=== PATIENT | female | born 1940 | race African-American/Black ===

== ENCOUNTER 2016-04-25 05:33 | Inpatient (IN) | payer OTHER ==
--- NOTE | 2016-04-25 05:35 | PDOC ---
History of Present Illness - General History Source: Patient <Chad Eaton - Last Filed: 04/25/16 06:41> - General History Source: Patient Exam Limitations: No Limitations - History of Present Illness Initial Comments: 04/25/16 05:47 The patient is a 75 year old female with significant past medical history of hypertension, diabetes, asthma, and COPD who presents to the ED with 4 days of SOB. Patient states she developed SOB with associated chest tightness and productive cough. Initially she had productive cough with green sputum, but the sputum is now whitish and clear. She is currently steroid dependent and is on 60mg of prednisone. Patient denies any sick contacts or recent travels. The patient denies fever, chills, chest pain, and palpitations. The patient denies abdominal pain, nausea, vomiting, and diarrhea. Allergies: Iodinated Contrast Media, tetracycline Social History: Denies alcohol, tobacco, and drug use. Past Surgical History: Breast Biopsy, Tubal Ligation PCP: Dr. Yeni Dejesus Counseling Aide: Dr. Marquise Perea <Evonne Hernadez - Last Filed: 04/25/16 06:47> <Kevon Albarran - Last Filed: 04/25/16 07:54> - General Stated Complaint: SOB Time Seen by Provider: 04/25/16 05:35 Past History - Past Medical History Asthma: Yes COPD: Yes Diabetes: Yes HTN: Yes Suicide Attempt (Hx): No - Surgical History Abdominal Surgery: Yes - Immunization History Immunization Up to Date: Yes - Psycho/Social/Smoking Cessation Hx Anxiety: No Suicidal Ideation: No Smoking Status: No Smoking History: Never smoked Have you smoked in the past 12 months: No Number of Cigarettes Smoked Daily: 0 If you are a former smoker, when did you quit?: 1989 Hx Alcohol Use: No Drug/Substance Use Hx: No Substance Use Type: Alcohol Hx Substance Use Treatment: No <Chda Eaton - Last Filed: 04/25/16 06:41> <Evonne Hernadez - Last Filed: 04/25/16 06:47> <Kevon Albarran - Last Filed: 04/25/16 07:54> - Past Medical History Allergies/Adverse Reactions: Allergies Allergy/AdvReac Type Severity Reaction Status Date / Time Iodinated Contrast Media - Allergy Unknown Verified 04/25/16 05:51 Oral and [IV Dye, Iodine Containing Contrast ] tetracycline [Tetracycline] Allergy Unknown Verified 04/25/16 05:51 shellfish derived Allergy Verified 04/25/16 06:39 Home Medications: Ambulatory Orders Arformoterol Tartrate [Brovana] 15 mcg IH DAILY 01/02/15 Losartan Potassium 50 mg PO DAILY 01/02/15 Metformin HCl 500 mg PO TID PRN 01/02/15 Mometasone Furoate [Asmanex 220Mcg -] 1 inh IH DAILY 01/02/15 Tiotropium Fisher [Spiriva] 1 inh PO DAILY 01/02/15 Albuterol 0.083% Nebulizer Delmi [Ventolin 0.083% Nebulizer Soln -] 1 neb NEB Q4H PRN #1 box 10/12/15 Prednisone 40 mg PO ASDIR 04/25/16 Review of Systems - Review of Systems Able to Perform ROS?: Yes Comments:: 04/25/16 05:47 CONSTITUTIONAL: Absent: fever, chills, diaphoresis, generalized weakness, malaise, loss of appetite HEENT: Absent: rhinorrhea, nasal congestion, throat pain, throat swelling, difficulty swallowing, mouth swelling, ear pain, eye pain, visual Changes CARDIOVASCULAR: Absent: chest pain, syncope, palpitations, irregular heart rate, lightheadedness , peripheral edema RESPIRATORY: +productive cough, SOB, chest tightness Absent: dyspnea with exertion, orthopnea , wheezing, stridor, hemoptysis GASTROINTESTINAL: Absent: abdominal pain, abdominal distension, nausea, vomiting, diarrhea, constipation, melena, hematochezia GENITOURINARY: Absent: dysuria, frequency, urgency, hesitancy, hematuria, flank pain, genital pain MUSCULOSKELETAL: Absent: myalgia, arthralgia, joint swelling SKIN: Absent: rash, itching, pallor NEUROLOGIC: Absent: headache, focal weakness or paresthesias, dizziness, unsteady gait, seizure, mental status changes, bladder or bowel incontinence PSYCHIATRIC: Absent: anxiety, depression, suicidal or homicidal ideation, hallucinations. <Evonne Hernadez - Last Filed: 04/25/16 06:47> *Physical Exam - Physical Exam Comments: 04/25/16 05:47 GENERAL: Well developed, well nourished. Awake and alert. No acute distress. HEENT: Normocephalic, atraumatic. PERRLA, EOMI. No conjunctival pallor. Sclera are non- icteric. Moist mucous membranes. Oropharynx is clear. NECK: Supple. Full ROM. No JVD. Carotid pulses 2+ and symmetric, without bruits. No thyromegaly. No lymphadenopathy. CARDIOVASCULAR: Slight tachycardia. Regular rhythm. No murmurs, rubs, or gallops. Distal pulses are 2+ and symmetric. PULMONARY: Bilateral coarse breath sounds, mild conversational dyspnea, scattered wheezing throughout all lung sanchez. ABDOMINAL: Soft. Non-tender. Non-distended. No rebound or guarding. No organomegaly. Normoactive bowel sounds. MUSCULOSKELETAL Normal range of motion at all joints. No bony deformities or tenderness. No CVA tenderness. EXTREMITIES: No cyanosis. No clubbing. No edema. No calf tenderness. SKIN: Warm and dry. Normal capillary refill. No rashes. No jaundice. NEUROLOGICAL: Alert, awake, appropriate. Cranial nerves 2-12 intact. Moving all extremities. No focal neurological deficits. PSYCHIATRIC: Cooperative. Good eye contact. Appropriate mood and affect. <Evonne Hernadez - Last Filed: 04/25/16 06:47> - Vital Signs Last Vital Signs Temp Pulse Resp BP Pulse Ox 98.7 F 86 20 135/57 95 04/25/16 05:51 04/25/16 07:09 04/25/16 07:09 04/25/16 07:09 04/25/16 07:09 <Kevon Albarran - Last Filed: 04/25/16 07:54> Heart Score/ECG Review - ECG Impressions Comment:: 04/25/16 06:47 NSR @76bpm Possible left atrial enlargement Left ventricular hypertrophy ST elevation, probably due to early repolarization Abnormal ECG <Evonne Hernadez - Last Filed: 04/25/16 06:47> ED Treatment Course - LABORATORY CBC & Chemistry Diagram: 04/25/16 05:40 04/25/16 05:40 <Chad Eaton - Last Filed: 04/25/16 06:41> - LABORATORY CBC & Chemistry Diagram: 04/25/16 05:40 04/25/16 05:40 <Evonne Hernadez - Last Filed: 04/25/16 06:47> - LABORATORY CBC & Chemistry Diagram: 04/25/16 05:40 04/25/16 05:40 - ADDITIONAL ORDERS Additional order review: Laboratory Results 04/25/16 04/25/16 04/25/16 05:40 05:40 05:40 INR 0.88 Sodium 139 Potassium 4.2 Chloride 106 Carbon Dioxide 24 Anion Gap 9 BUN 34 H D Creatinine 0.9 D Creat Clearance w eGFR > 60 Random Glucose 125 H Lactic Acid 1.677 Calcium 8.9 Magnesium 1.8 Total Bilirubin 0.3 D AST 16 ALT 30 Alkaline Phosphatase 63 Creatine Kinase 67 Troponin I < 0.02 B-Natriuretic Peptide 54.23 Total Protein 6.6 Albumin 3.3 L 04/25/16 05:40 RBC 4.75 MCV 85.5 MCHC 31.2 L RDW 15.1 MPV 9.7 Neutrophils % 60.2 D Lymphocytes % 30.0 D Monocytes % 8.0 D Eosinophils % 1.4 D Basophils % 0.4 D - Medications Given in the ED: ED Medications Discontinued Medications Generic Name Dose Route Start Last Admin Trade Name Hiteshq PRN Reason Stop Dose Admin Albuterol/Ipratropium 1 amp 04/25/16 05:36 04/25/16 05:40 Duoneb - NEB 04/25/16 05:37 1 amp ONCE STA Administration Albuterol/Ipratropium 1 amp 04/25/16 05:37 04/25/16 05:40 Duoneb - NEB 04/25/16 05:38 1 amp ONCE STA Administration Magnesium Sulfate 2 gm 04/25/16 05:36 04/25/16 05:52 Magnesium Sulfate IVPB 04/25/16 05:37 2 gm ONCE ONE Administration Methylprednisolone Sodium Succinate 125 mg 04/25/16 05:37 04/25/16 05:52 Solu-Medrol - IVPB 04/25/16 05:38 125 mg ONCE ONE Administration <Kevon Albarran - Last Filed: 04/25/16 07:54> *DC/Admit/Observation/Transfer - Discharge Dispostion Admit: Yes <Chad Eaton - Last Filed: 04/25/16 06:41> - Attestations Scribe Attestion: 04/25/16 05:48 Documentation prepared by Evonne Hernadez, acting as medical coding instructor for Chad Eaton MD <Evonne Hernadez - Last Filed: 04/25/16 06:47> - Discharge Dispostion Admit: Yes <Kevon Albarran - Last Filed: 04/25/16 07:54> Diagnosis at time of Disposition: COPD exacerbation - Discharge Dispostion Condition at time of disposition: Fair - Referrals Referrals: Yeni Duque MD [Primary Care Provider] -
[2016-04-25] MEDS ORDERED: ALBUTEROL SO4 2.5/IPRATROPIUM 0.5 INH SOL 3 ML VIAL.NEB. NEB STA ×2 (05:36→05:37)
[2016-04-25] MEDS ORDERED: MAGNESIUM SULF 50% (8.12 MEQ/2 ML-1 GM VIAL) IVPB ONE (05:36)
[2016-04-25] MEDS ORDERED: methylPREDNISolone NA SUCC 125 MG/2 ML VIAL IVPB ONE (05:37)
[2016-04-25] MEDS ORDERED: MAGNESIUM SULF 50% (8.12 MEQ/2 ML-1 GM VIAL) ONE (05:42)
[2016-04-25] MEDS ORDERED: methylPREDNISolone NA SUCC 125 MG/2 ML VIAL ONE (05:42)
[2016-04-25 05:53] VITALS: BMI 33.3
[2016-04-25 05:58] LABS: BASOPHIL 0.4 % (0-2.0); EOSINOPHIL 1.4 % (0-4.5); MCH 26.7 pg (25.7-33.7); MCHC 31.2 g/dl (32.0-36.0); MEAN CELL VOLUME 85.5 fl (80-96); MEAN PLT VOLUME 9.7 fl (7.5-11.1); NEUTROPHILS 60.2 % (42.8-82.8); PLATELET COUNT 244 K/MM3 (134-434); RDW 15.1 % (11.6-15.6); WHITE BLOOD COUNT 13.8 K/mm3 (4.0-10.0)
[2016-04-25 06:15] LABS: INR 0.88 (0.82-1.09); PROTHROMBIN TIME (PATIENT) 9.7 SEC (9.98-11.88)
[2016-04-25 06:25] LABS: ALBUMIN 3.3 g/dl (3.4-5.0); ANION GAP 9 (8-16); BILIRUBIN,TOTAL 0.3 mg/dL (0.2-1.0); CALCIUM 8.9 mg/dL (8.5-10.1); CO2 24 mmol/L (21-32); CREATININE 0.9 mg/dL (0.55-1.02); GLUCOSE,RANDOM 125 mg/dL (74-106); MAGNESIUM 1.8 mg/dL (1.8-2.4); SGOT/AST 16 U/L (15-37); SGPT/ALT 30 U/L (12-78); TOT PROT 6.6 g/dl (6.4-8.2)
[2016-04-25 06:28] LABS: ALK PHOS 63 U/L (45-117); TROPONIN I < 0.02 ng/ml (0.00-0.05)
--- NOTE | 2016-04-25 07:03 | HP ---
CHIEF COMPLAINT: Shortness of breath with chest tightness and productive cough ( green sputum) for last 4 days. PCP: Dr. Yeni Dejesus Pulmonary: Dr. Perea HISTORY OF PRESENT ILLNESS: Patient is a 75 year old female with a significant past medical history of COPD, asthma, hypertension, diabetes mellitus type 2 and UTI. She presented to the ED on 04/25/2016 with complaints of chest tightness, productive cough (green sputum) and shortness of breath. She states chest tightness occurred with coughing and taking a deep breath. She was recently admitted to [facility] on 04/12/2016 with COPD exacerbation and UTI. ER course was notable for: (1) Leukocytosis; WBC 13.8 (2) Dehydration; BUN 34 (3) ECG with ST elevation Recent Travel: denies PAST MEDICAL HISTORY: diabetes mellitus, COPD, Asthma, HTN, UTI PAST SURGICAL HISTORY: Tubal ligation, bilateral breast biopsies Social History: Smokin years ago Alcohol: drinks beer occasionally - last drink 3 months ago Drugs: denies Family History: , had 7 children (4 ), Mother - "breathing difficulties", Father of cancer Allergies: Iodinated Contrast Media - Oral and [IV Dye, Iodine Containing Contrast ] Allergy (Unknown, Verified 04/25/16 05:51) tetracycline [Tetracycline] Allergy (Unknown, Verified 04/25/16 05:51) shellfish derived Allergy (Verified 04/25/16 06:39) HOME MEDICATIONS: Medication Instructions Recorded Arformoterol Tartrate [Brovana] 15 mcg IH DAILY 01/02/15 Losartan Potassium 50 mg PO DAILY 01/02/15 Metformin HCl 500 mg PO TID PRN 01/02/15 Mometasone Furoate [Asmanex 220Mcg 1 inh IH DAILY 01/02/15 -] Tiotropium [place] [Spiriva] 1 inh PO DAILY 01/02/15 Albuterol 0.083% Nebulizer Delmi 1 neb NEB Q4H PRN #1 box 10/12/15 [Ventolin 0.083% Nebulizer Soln -] Prednisone 40 mg PO ASDIR 04/25/16 REVIEW OF SYSTEMS CONSTITUTIONAL: Absent: fever, chills, diaphoresis, weight change HEENT: Absent: throat pain, throat swelling, difficulty swallowing, mouth swelling, ear pain, eye pain, visual changes CARDIOVASCULAR: denies chest pain, lightheadedness RESPIRATORY: In mild respiratory distress, audible wheezing, scattered wheezing bilateral lung filds with scattered rhonchi GASTROINTESTINAL: Absent: abdominal pain, abdominal distension, nausea, vomiting, diarrhea, constipation, melena, hematochezia GENITOURINARY: Absent: dysuria, frequency, urgency, hesitancy, hematuria, flank pain, genital pain MUSCULOSKELETAL: Absent: myalgia, arthralgia, joint swelling, back pain, neck pain SKIN: Absent: rash, itching, pallor HEMATOLOGIC/IMMUNOLOGIC: Absent: easy bleeding, easy bruising, lymphadenopathy, frequent infections ENDOCRINE: Absent: unexplained weight gain, unexplained weight loss, heat intolerance, cold intolerance NEUROLOGIC: Absent: headache, focal weakness or paresthesias, dizziness, unsteady gait, seizure, mental status changes, bladder or bowel incontinence PSYCHIATRIC: Absent: anxiety, depression, suicidal or homicidal ideation, hallucinations. PHYSICAL EXAMINATION Vital Signs - 24 hr 04/25/16 05:51 Temperature 98.7 F Pulse Rate 75 Respiratory 30 H Rate Blood Pressure 175/96 O2 Sat by Pulse 96 Oximetry (%) GENERAL: Awake, alert, and fully oriented, in mild respiratory distress HEAD: Normal with no signs of trauma. EYES: Pupils equal, round and reactive to light, extraocular movements intact, sclera anicteric, conjunctiva clear. No lid lag. EARS, NOSE, THROAT: Ears normal, nares patent, oropharynx clear without exudates. Moist mucous membranes. NECK: Normal range of motion, supple without lymphadenopathy, JVD, or masses. LUNGS: Bilateral lungs with scattered expiratory wheezing and rhonchi HEART: Regular rate and rhythm ABDOMEN: Soft, nontender, not distended, normoactive bowel sounds, last BM today MUSCULOSKELETAL: Normal range of motion at all joints. No bony deformities or tenderness. No CVA tenderness. UPPER EXTREMITIES: 2+ pulses, warm, well-perfused. LOWER EXTREMITIES: 2+ pulses, warm, well-perfused. No calf tenderness. No peripheral edema. NEUROLOGICAL: Normal speech. PSYCHIATRIC: Cooperative. Good eye contact. Appropriate mood and affect. SKIN: Warm, dry, normal turgor, no rashes or lesions noted. Laboratory Results - last 24 hr 04/25/16 04/25/16 04/25/16 05:40 05:40 05:40 WBC 13.8 H RBC 4.75 Hgb 12.7 Hct 40.6 MCV 85.5 MCHC 31.2 L RDW 15.1 Plt Count 244 MPV 9.7 Neutrophils % 60.2 D Lymphocytes % 30.0 D Monocytes % 8.0 D Eosinophils % 1.4 D Basophils % 0.4 D INR 0.88 Sodium 139 Potassium 4.2 Chloride 106 Carbon Dioxide 24 Anion Gap 9 BUN 34 H D Creatinine 0.9 D Creat Clearance w eGFR > 60 Random Glucose 125 H Lactic Acid Calcium 8.9 Magnesium 1.8 Total Bilirubin 0.3 D AST 16 ALT 30 Alkaline Phosphatase 63 Creatine Kinase 67 Troponin I < 0.02 B-Natriuretic Peptide 54.23 Total Protein 6.6 Albumin 3.3 L 04/25/16 05:40 WBC RBC Hgb Hct MCV MCHC RDW Plt Count MPV Neutrophils % Lymphocytes % Monocytes % Eosinophils % Basophils % INR Sodium Potassium Chloride Carbon Dioxide Anion Gap BUN Creatinine Creat Clearance w eGFR Random Glucose Lactic Acid 1.677 Calcium Magnesium Total Bilirubin AST ALT Alkaline Phosphatase Creatine Kinase Troponin I B-Natriuretic Peptide Total Protein Albumin ASSESSMENT/PLAN: Mrs. Kay is a 75 year old female with a past medical history significnat for asthma, COPD, hypertension and Diabetes mellitus. She presented to the ED earlier this morning with a productive cough, shortness of breath for 4 days and chest tightness when taking a deep breath. She reports her symptoms were gradually getting worse at home despite home inhalers. She was recently admitted to [facility] on 04/11/2016 for asthma exacerbation in COPD and discharged on 04/12/2016. She reports her symptoms are similar to her symptoms on last admission. She denies fever, chills, recent travel and sick contacts. She is a former smoker and denies any environmental exposures. She lives alone in an apartment in [place]. No pets. Pulmonary: COPD Exacerbation - acute on a chronic condition Assessment/Plan: She was recently admitted on 04/11/16 for asthma exacerbation in COPD and was discharged on 04/12/2016 with 3 days of Azithromycin 500mg and daily Prednisone 10mg. She states her symptoms improved and then worsened 4 days ago despite antibiotics, steroids and home inhalers She received Levaquin 750mg in ED and Solumedrol 125mg IV x 1 Will order Solumedrol 40mg q6 IV and continue Levaquin 750mg daily, duonebs, 2 liters of nasal cannula prn. Pulmonary consulted Cardiology: Hypertension - chronic Assessment/Plan: Hypertension controlled with Cozaar 50mg daily Monitor BP Chest Pain - acute Most likely secondary to respiratory status EKG: normal sinus in the 70s, with possible left atrial enlargement Left ventricular hypertrophy, ST elevation Troponin negative, awaiting second troponin Endocrine: Diabetes mellitus - chronic Assessment/Plan: On Metformin 500mg BID Capillary glucose checks F.E.N. Fluids: tolerating adequate PO intake - 500cc normal saline bolus x 1 for dehydration Electrolytes: dehydration. BMP for am Nutrition: Diabetic diet Prophylaxis: DVT: Lovenox 40mg SC, ambulation GI: Had BM today, Colace prn Disposition. Requires observation. Potential discharge tomorrow. Full Code. Visit type - Emergency Visit Emergency Visit: Yes ED Registration Date: 04/25/16 Care time: The patient presented to the Emergency Department on the above date and was hospitalized for further evaluation of their emergent condition. - New Patient This patient is new to me today: Yes Date on this admission: 04/25/16 - Critical Care Critical Care patient: No
[2016-04-25] MEDS ORDERED: metFORMIN HCL 500 MG TABLET (FP) PO PRN (08:02)
[2016-04-25] MEDS ORDERED: ALBUTEROL SO4 0.083% IH SOL 2.5 MG/3 ML VIAL.NEB. NEB PRN (08:02)
[2016-04-25] MEDS ORDERED: SODIUM CHLORIDE 500 ML IV STA (08:23)
[2016-04-25 09:05] LABS: URINE APPEARANCE CLOUDY; URINE BILIRUBIN NEGATIVE (NEGATIVE); URINE BLOOD NEGATIVE (NEGATIVE); URINE COLOR STRAW; URINE GLUCOSE (UA) NEGATIVE (NEGATIVE); URINE KETONE NEGATIVE (NEGATIVE); URINE NITRITE NEGATIVE (NEGATIVE); URINE PROTEIN NEGATIVE (NEGATIVE); URINE UROBILINOGEN NEGATIVE E.U./dl (0.2-1.0)
[2016-04-25 09:16] LABS: URINE LEUK ESTERASE 1+ (NEGATIVE)
[2016-04-25 09:21] LABS: GRANULAR CASTS 4 /lpf; URINE MUCUS RARE; URINE RBC 173 /hpf (0-3); URINE WBC 4 /hpf (3-5); YEAST RARE
[2016-04-25] MEDS ORDERED: ACLIDINIUM BROMIDE 400 MCG/INH AERO.POWD IH SCH (10:00)
[2016-04-25] MEDS ORDERED: ARFORMOTEROL TARTRATE 15 MCG/2 ML VIAL NEB SCH (10:00)
[2016-04-25] MEDS ORDERED: AZITHROMYCIN IVPB 500 MG in DEXTROSE 5%-WATER - 250 ML IVPB SCH (10:00)
[2016-04-25] MEDS ORDERED: PT OWN MED DRAWER 7, Y5N ONE ×2 (10:09→14:28)
[2016-04-25] MEDS: LOSARTAN POTASSIUM 50 MG TABLET (FP) PO SCH (10:15)
[2016-04-25] MEDS: metFORMIN HCL 500 MG TABLET (FP) PO SCH ×2 (10:15→17:58)
[2016-04-25] MEDS: ENOXAPARIN NA (PORCINE) 40 MG/0.4 ML DISP.SYRIN SQ SCH (10:15)
[2016-04-25] MEDS: MOMETASONE FUROATE 220 MCG/IH INHALER IH SCH (10:49)
[2016-04-25] MEDS ORDERED: methylPREDNISolone NA SUCC 40 MG/1 ML VIAL IVPB SCH (12:00)
--- NOTE | 2016-04-25 12:42 | CONSULT ---
Consult Consult Specialty:: PULMONARY Referred by:: KARIN Reason for Consultation:: SOB/COUGH - History of Present Illness Chief Complaint: WHEEZES/COUGH/SPUTUM/SOB History of Present Illness: Patient is a 75 year old female with a significant past medical history of COPD , asthma, hypertension, diabetes mellitus type 2 and UTI. She presented to the ED on 04/25/2016 with complaints of chest tightness, productive cough (green sputum) and shortness of breath. She states chest tightness occurred with coughing and taking a deep breath. She was recently admitted to [facility] on with COPD exacerbation and UTI. 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 [employer]IST: No: Alzheimer's Cardio/Vascular: Yes: HTN Pulmonary: Yes: Asthma, COPD Endocrine: Yes: Diabetes Mellitus - Past Surgical History Past Surgical History: Yes: Breast Biopsy, Tubal Ligation - Alcohol/Substance Use Hx Alcohol Use: No - Smoking History Smoking history: Never smoked Have you smoked in the past 12 months: No Aproximately how many cigarettes per day: 0 If you are a former smoker, when did you quit?: 1990 Home Medications - Allergies Allergies/Adverse Reactions: Allergies Allergy/AdvReac Type Severity Reaction Status Date / Time Iodinated Contrast Media - Allergy Unknown Verified 04/25/16 05:51 Oral and [IV Dye, Iodine Containing Contrast ] tetracycline [Tetracycline] Allergy Unknown Verified 04/25/16 05:51 shellfish derived Allergy Verified 04/25/16 06:39 - Home Medications Home Medications: Ambulatory Orders Arformoterol Tartrate [Brovana] 15 mcg IH DAILY 01/02/15 Losartan Potassium 50 mg PO DAILY 01/02/15 Metformin HCl 500 mg PO TID PRN 01/02/15 Mometasone Furoate [Asmanex 220Mcg -] 1 inh IH DAILY 01/02/15 Tiotropium Jessie [Spiriva] 1 inh PO DAILY 01/02/15 Albuterol 0.083% Nebulizer Delmi [Ventolin 0.083% Nebulizer Soln -] 1 neb NEB Q4H PRN #1 box 10/12/15 Prednisone 40 mg PO ASDIR 04/25/16 Family Disease History - Family Disease History Family History: Unremarkable Review of Systems - Review of Systems Constitutional: denies: Fever Eyes: denies: Blurred Vision HENT: denies: Difficult Swallowing Neck: denies: Decreased ROM Cardiovascular: reports: Shortness of Breath. denies: Chest Pain, Palpitations Respiratory: reports: Cough, Exercise Intolerance, SOB, SOB on Exertion, Wheezing. denies: Hemoptysis Gastrointestinal: denies: Abdominal Pain Genitourinary: reports: Discharge. denies: Burning Physical Exam Vital Sings: Vital Signs Temperature 97.5 F L 04/25/16 08:40 Pulse Rate 72 04/25/16 08:40 Respiratory Rate 18 04/25/16 08:40 Blood Pressure 126/65 04/25/16 08:40 O2 Sat by Pulse Oximetry (%) 94 L 04/25/16 08:40 Constitutional: Yes: Calm Eyes: Yes: EOM Intact HENT: Yes: Normocephalic Neck: Yes: Trachea Midline Cardiovascular: Yes: Regular Rate and Rhythm Respiratory: Yes: Wheezes (DIFFUSE BILATERAL) Gastrointestinal: Yes: Soft Edema: No Neurological: Yes: Alert Imaging - Results Chest X-ray: Image Reviewed Problem List - Problems (1) COPD exacerbation Code(s): J44.1 - CHRONIC OBSTRUCTIVE PULMONARY DISEASE W (ACUTE) EXACERBATION (2) Asthma exacerbation Code(s): J45.901 - UNSPECIFIED ASTHMA WITH (ACUTE) EXACERBATION (3) Asthma exacerbation in COPD Code(s): J44.1 - CHRONIC OBSTRUCTIVE PULMONARY DISEASE W (ACUTE) EXACERBATION J45.901 - UNSPECIFIED ASTHMA WITH (ACUTE) EXACERBATION (4) Diabetes Code(s): E11.9 - TYPE 2 DIABETES MELLITUS WITHOUT COMPLICATIONS (5) Hypertension Code(s): I10 - ESSENTIAL (PRIMARY) HYPERTENSION (6) Osteoarthritis Code(s): M19.90 - UNSPECIFIED OSTEOARTHRITIS, UNSPECIFIED SITE Assessment/Plan IVPB STEROIDS/ANTIBIOTICS/THEE/LABA/ICS/SINGULAIR DAILY PEAK FLOW CHECK SPUTUM/URNARY ANTIGENS/NASAL SWAB FOR INFLU DIFLUCAN FOR YEAST INFECTION/GLYCEMIC CONTROL WILL FOLLOW Geneva GONZALEZ MD
[2016-04-25] MEDS: ALBUTEROL SO4 2.5/IPRATROPIUM 0.5 INH SOL 3 ML VIAL.NEB. NEB SCH ×2 (13:00→19:43)
[2016-04-25] MEDS: methylPREDNISolone NA SUCC 40 MG/1 ML VIAL IVPB SCH ×3 (13:21→22:21)
[2016-04-25] MEDS: TIOTROPIUM BROMIDE 18 MCG/INH (DEVICE W/ 5 CAPSULES) IH SCH (14:40)
[2016-04-25] MEDS: FLUCONAZOLE 100 MG TABLET (UD) PO SCH (14:41)
--- NOTE | 2016-04-25 17:05 | EKG ---
Test Reason : Blood Pressure : / mmHG Vent. Rate : 076 BPM Atrial Rate : 076 BPM P-R Int : 158 ms QRS Dur : 074 ms QT Int : 388 ms P-R-T Axes : 068 039 056 degrees QTc Int : 436 ms POOR DATA QUALITY, INTERPRETATION MAY BE ADVERSELY AFFECTED NORMAL SINUS RHYTHM POSSIBLE LEFT ATRIAL ENLARGEMENT LEFT VENTRICULAR HYPERTROPHY ST ELEVATION, CONSIDER EARLY REPOLARIZATION ABNORMAL ECG WHEN COMPARED WITH ECG OF 11-APR-2016 07:25, T WAVE AMPLITUDE HAS INCREASED IN LATERAL LEADS Confirmed by VENICE MURILLO MD ([id number]) on 04/25/2016 5:04:56 PM Referred By: Overread By: VENICE MURILLO MD
[2016-04-25] MEDS: INSULIN SLIDING SCALE (NOVOLOG) 1 VIAL SQ SCH (22:24)
[2016-04-25] MEDS: MONTELUKAST NA 10 MG TABLET PO SCH (22:25)
[2016-04-25] MEDS: ZOLPIDEM TARTRATE 5 MG TABLET PO PRN (23:14)
[2016-04-26] MEDS: ALBUTEROL SO4 2.5/IPRATROPIUM 0.5 INH SOL 3 ML VIAL.NEB. NEB SCH ×5 (00:20→23:38)
[2016-04-26] MEDS: methylPREDNISolone NA SUCC 40 MG/1 ML VIAL IVPB SCH ×4 (02:50→22:46)
[2016-04-26] MEDS: INSULIN SLIDING SCALE (NOVOLOG) 1 VIAL SQ SCH ×4 (06:10→22:45)
[2016-04-26] MEDS ORDERED: LEVOFLOXACIN 750 MG IVPB 150 ML IVPB ONE (08:00)
[2016-04-26 08:21] LABS: MCH 27.4 pg (25.7-33.7); MCHC 31.9 g/dl (32.0-36.0); MEAN CELL VOLUME 86.1 fl (80-96); MEAN PLT VOLUME 10.5 fl (7.5-11.1); PLATELET COUNT 228 K/MM3 (134-434); RDW 14.8 % (11.6-15.6); WHITE BLOOD COUNT 13.7 K/mm3 (4.0-10.0)
[2016-04-26 08:46] LABS: ALBUMIN 3.4 g/dl (3.4-5.0); ALK PHOS 51 U/L (45-117); ANION GAP 5 (8-16); BILIRUBIN,TOTAL 0.5 mg/dL (0.2-1.0); CALCIUM 8.8 mg/dL (8.5-10.1); CO2 26 mmol/L (21-32); CREATININE 0.6 mg/dL (0.55-1.02); GLUCOSE,RANDOM 201 mg/dL (74-106); SGOT/AST 10 U/L (15-37); SGPT/ALT 29 U/L (12-78); TOT PROT 6.4 g/dl (6.4-8.2)
[2016-04-26] MEDS ORDERED: PT OWN MED DRAWER 7, Y5N ONE ×2 (09:33→09:58)
[2016-04-26] MEDS: TIOTROPIUM BROMIDE 18 MCG/INH (DEVICE W/ 5 CAPSULES) IH SCH (09:51)
[2016-04-26] MEDS: LOSARTAN POTASSIUM 50 MG TABLET (FP) PO SCH (09:51)
[2016-04-26] MEDS: ENOXAPARIN NA (PORCINE) 40 MG/0.4 ML DISP.SYRIN SQ SCH (09:51)
[2016-04-26] MEDS: MOMETASONE FUROATE 220 MCG/IH INHALER IH SCH (09:59)
[2016-04-26] MEDS: FLUCONAZOLE 100 MG TABLET (UD) PO SCH (09:59)
[2016-04-26] MEDS ORDERED: INSULIN (NOVOLOG) ASPART 100 UNITS/ML 10ML VIAL ONE ×2 (11:35→16:51)
[2016-04-26 12:53] LABS: MAGNESIUM 2.1 mg/dL (1.8-2.4)
--- NOTE | 2016-04-26 13:19 | PN ---
Progress Note (short form) - Note Progress Note: PULMONARY Still with chest tightness, cough and wheezing. Last Vital Signs Temp Pulse Resp BP Pulse Ox 97.5 F L 88 20 143/66 96 04/26/16 10:00 04/26/16 10:00 04/26/16 10:00 04/26/16 10:00 04/26/16 08:00 Gen: NAD at rest Heart: RRR Lung: diffuse rhonchi and wheezing Abd: soft, nontender Ext: no edema CBC, BMP 04/26/16 05:27 04/26/16 05:27 Active Medications Albuterol/Ipratropium (Duoneb -) 1 amp NEB QIDR [facility] Last Admin: 04/26/16 06:37 Dose: 1 amp Enoxaparin Sodium (Lovenox -) 40 mg SQ DAILY [facility] Last Admin: 04/26/16 09:51 Dose: 40 mg Fluconazole (Diflucan -) 100 mg PO DAILY [facility] Stop: 04/28/16 12:00 Last Admin: 04/26/16 09:59 Dose: 100 mg Insulin Aspart (Novolog Vial Sliding Scale -) 1 vial SQ ACHS [facility] PRN Reason: Protocol Losartan Potassium (Cozaar -) 50 mg PO DAILY [facility] Last Admin: 04/26/16 09:51 Dose: 50 mg Methylprednisolone Sodium Succinate (Solu-Medrol -) 60 mg IVPB Q6H-IV [facility] Last Admin: 04/26/16 09:50 Dose: 60 mg Mometasone Furoate (Asmanex 220mcg -) 1 puff IH DAILY [facility] Last Admin: 04/26/16 09:59 Dose: 1 puff Montelukast Sodium (Singulair -) 10 mg PO HS [facility] Last Admin: 04/25/16 22:25 Dose: 10 mg Pantoprazole Sodium (Protonix -) 40 mg PO DAILY [facility] Tiotropium [place] (Spiriva -) 1 puff IH DAILY [facility] Last Admin: 04/26/16 09:51 Dose: 1 cap Zolpidem Tartrate (Ambien -) 5 mg PO HS PRN PRN Reason: INSOMNIA Last Admin: 04/25/16 23:14 Dose: 5 mg A/P Acute COPD/Asthma Exacerbation HTN DM Osteoarthritis - continue medrol at current dose - inhaled bronchodilators standing and PRN - hold spiriva while pt on standing duonebs - O2 as needed - f/u cultures - glucose control while on systemic steroids - DVT prophylaxis
[2016-04-26] MEDS ORDERED: ALBUTEROL SO4 0.083% IH SOL 2.5 MG/3 ML VIAL.NEB. NEB PRN (13:21)
[2016-04-26] MEDS: PANTOPRAZOLE 40 MG TABLET (FP) PO SCH (15:39)
--- NOTE | 2016-04-26 16:06 | PN ---
Physical Exam: SUBJECTIVE: Patient seen and examined. States she feels better since admission but still with some dyspnea on exertion. Denies chest pain. OBJECTIVE: GENERAL: Awake, alert, and fully oriented, respiratory distress improving but noted to still have profused wheezing HEAD: Normal with no signs of trauma. EYES: Pupils equal, round and reactive to light, extraocular movements intact, sclera anicteric, conjunctiva clear. No lid lag. EARS, NOSE, THROAT: Ears normal, nares patent, oropharynx clear without exudates. Moist mucous membranes. NECK: Normal range of motion, supple without lymphadenopathy, JVD, or masses. LUNGS: Bilateral lungs with scattered expiratory wheezing HEART: Regular rate and rhythm ABDOMEN: Soft, nontender, not distended, normoactive bowel sounds, last BM today MUSCULOSKELETAL: Normal range of motion at all joints. No bony deformities or tenderness. No CVA tenderness. UPPER EXTREMITIES: 2+ pulses, warm, well-perfused. LOWER EXTREMITIES: 2+ pulses, warm, well-perfused. No calf tenderness. No peripheral edema. NEUROLOGICAL: Normal speech. PSYCHIATRIC: Cooperative. Good eye contact. Appropriate mood and affect. SKIN: Warm, dry, normal turgor, no rashes or lesions noted. Vital Signs Period Temp Pulse Resp BP Sys/Stallings Pulse Ox Last 24 Hr 97.5 F-98.5 F 77-88 18-24 139-154/66-79 96-96 Laboratory Results - last 24 hr 04/25/16 04/25/16 04/25/16 17:00 17:30 22:19 WBC RBC Hgb Hct MCV MCHC RDW Plt Count MPV Sodium Potassium Chloride Carbon Dioxide Anion Gap BUN Creatinine Creat Clearance w eGFR POC Glucometer 222 190 Random Glucose Calcium Magnesium Total Bilirubin AST ALT Alkaline Phosphatase Troponin I < 0.02 Total Protein Albumin 04/26/16 04/26/16 04/26/16 05:27 05:27 05:27 WBC 13.7 H RBC 4.58 Hgb 12.6 Hct 39.4 MCV 86.1 MCHC 31.9 L RDW 14.8 Plt Count 228 MPV 10.5 Sodium 134 L Potassium 4.3 Chloride 103 Carbon Dioxide 26 Anion Gap 5 L BUN 23 H D Creatinine 0.6 D Creat Clearance w eGFR > 60 POC Glucometer Random Glucose 201 H D Calcium 8.8 Magnesium 2.1 Cancelled Total Bilirubin 0.5 D AST 10 L D ALT 29 Alkaline Phosphatase 51 Troponin I Total Protein 6.4 Albumin 3.4 04/26/16 04/26/16 06:10 11:31 WBC RBC Hgb Hct MCV MCHC RDW Plt Count MPV Sodium Potassium Chloride Carbon Dioxide Anion Gap BUN Creatinine Creat Clearance w eGFR POC Glucometer 184 236 Random Glucose Calcium Magnesium Total Bilirubin AST ALT Alkaline Phosphatase Troponin I Total Protein Albumin Active Medications Generic Name Dose Route Start Last Admin Trade Name Freq PRN Reason Stop Dose Admin Albuterol Sulfate 1 amp 04/26/16 13:21 Ventolin 0.083% Nebulizer Soln - NEB Q4H PRN SHORT OF BREATH/WHEEZING Albuterol/Ipratropium 1 amp 04/25/16 12:00 04/26/16 11:10 Duoneb - NEB 1 amp QIDR CORNELL Administration Enoxaparin Sodium 40 mg 04/25/16 10:00 04/26/16 09:51 Lovenox - SQ 40 mg DAILY CORNELL Administration Fluconazole 100 mg 04/25/16 12:45 04/26/16 09:59 Diflucan - PO 04/28/16 12:00 100 mg DAILY CORNELL Administration Insulin Aspart 1 vial 04/26/16 11:51 Novolog Vial Sliding Scale - SQ ACHS CORNE[facility] Protocol Losartan Potassium 50 mg 04/25/16 10:00 04/26/16 09:51 Cozaar - PO 50 mg DAILY CORNE[facility] Administration Methylprednisolone Sodium Succinate 60 mg 04/25/16 12:00 04/26/16 15:39 Solu-Medrol - IVPB 60 mg Q6H-IV CORNELL Administration Mometasone Furoate 1 puff 04/25/16 10:00 04/26/16 09:59 Asmanex 220mcg - IH 1 puff DAILY [facility] Administration Montelukast Sodium 10 mg 04/25/16 22:00 04/25/16 22:25 Singulair - PO 10 mg HS CORNELL Administration Pantoprazole Sodium 40 mg 04/26/16 12:00 04/26/16 15:39 Protonix - PO 40 mg DAILY [facility]NE[facility] Administration Zolpidem Tartrate 5 mg 04/25/16 11:40 04/25/16 23:14 Ambien - PO 5 mg HS PRN Administration INSOMNIA ASSESSMENT/PLAN: Mrs. Kay is a 75 year old female with a past medical history significnat for asthma, COPD, hypertension and Diabetes mellitus. She presented to the ED earlier this morning with a productive cough, shortness of breath for 4 days and chest tightness when taking a deep breath. She reports her symptoms were gradually getting worse at home despite home inhalers. She was recently admitted to [facility] on 04/11/2016 for asthma exacerbation in COPD and discharged on 04/12/2016. She reports her symptoms are similar to her symptoms on last admission. She denies fever, chills, recent travel and sick contacts. She is a former smoker and denies any environmental exposures. She lives alone in an apartment in [place]. No pets. Pulmonary: COPD Exacerbation - acute on a chronic condition Assessment/Plan: Patient states she feels better but is still having some dyspnea with ambulation. On Solumedrol 60mg q 6, supplemental oxygen and Levaquin 750mg PO, received two doses of Levaquin 750mg IV, will switch to PO in anticipation of discharge tomorrow Pulmonary following Cardiology: Hypertension - chronic Assessment/Plan: Hypertension controlled with Cozaar 50mg daily Monitor BP Chest Pain - resolved Most likely secondary to respiratory status EKG: normal sinus in the 70s, with possible left atrial enlargement Left ventricular hypertrophy, ST elevation Troponin negative x 3 Endocrine: Diabetes mellitus - chronic Assessment/Plan: Metformin on hold, started on Novolog sliding scale Capillary glucose checks, monitor closely F.E.N. Fluids: tolerating adequate PO intake Electrolytes: dehydration improving, slightly hyponatremic - monitor Nutrition: Diabetic diet Prophylaxis: DVT: Lovenox 40mg SC, ambulation GI: Colace prn Disposition. Requires inpatient hospitalization. Potential discharge tomorrow. Full Code. Visit type - Emergency Visit Emergency Visit: Yes ED Registration Date: 04/25/16 Care time: The patient presented to the Emergency Department on the above date and was hospitalized for further evaluation of their emergent condition. - New Patient This patient is new to me today: No - Critical Care Critical Care patient: No - Discharge Referral Referred to [facility] No
[2016-04-26] MEDS: MONTELUKAST NA 10 MG TABLET PO SCH (22:46)
[2016-04-26] MEDS: ZOLPIDEM TARTRATE 5 MG TABLET PO PRN (22:46)
[2016-04-27] MEDS: methylPREDNISolone NA SUCC 40 MG/1 ML VIAL IVPB SCH ×4 (02:27→22:37)
--- NOTE | 2016-04-27 02:57 | CONSULT ---
Consult Consult Specialty:: cardiology Reason for Consultation:: shortness of breath - History of Present Illness Chief Complaint: Pt dyspneic with minimal exertion. History of Present Illness: The patient is a 75 year old black female with significant past medical history of hypertension, diabetes, COPD/asthma, diastolic CHF, OSAS, osteoporosis, ? carotid artery disease (50-69% bilateral stenosis on 02/11 [place]), who presents to the ED with 4 days of SOB. Patient states she developed SOB with associated chest tightness and productive cough. Initially she had productive cough with green sputum, but the sputum is now whitish and clear. She is currently steroid dependent and is on 60mg of prednisone. Patient denies any sick contacts or recent travels. Until recently, she has been walking up to 5 miles daily without signficant dyspnea or chest discomfort. (Hx coronary angiogram done in this hospital several years ago, reportedly with patent coronary arteries). The patient denies fever, chills, chest pain, and palpitations. The patient denies abdominal pain, nausea, vomiting, and diarrhea. Allergies: Iodinated Contrast Media, tetracycline Social History: Denies alcohol, tobacco, and drug use. Past Surgical History: Breast Biopsy, Tubal Ligation PCP: Dr. Yeni Dejesus Corn Grower: Dr. Marquise Perea Night Stocker: Dr. 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 Cardio/Vascular: Yes: HTN Pulmonary: Yes: Asthma, COPD Reproductive: Yes: Postmenopausal ...: No Psych: Yes: Anxiety Endocrine: Yes: Diabetes Mellitus - Past Surgical History Past Surgical History: Yes: Breast Biopsy, Tubal Ligation - Alcohol/Substance Use Hx Alcohol Use: No - Smoking History Smoking history: Never smoked Have you smoked in the past 12 months: No Aproximately how many cigarettes per day: 0 If you are a former smoker, when did you quit?: 1989 Home Medications - Allergies Allergies/Adverse Reactions: Allergies Allergy/AdvReac Type Severity Reaction Status Date / Time Iodinated Contrast Media - Allergy Unknown Verified 04/25/16 05:51 Oral and [IV Dye, Iodine Containing Contrast ] tetracycline [Tetracycline] Allergy Unknown Verified 04/25/16 05:51 shellfish derived Allergy Verified 04/25/16 06:39 - Home Medications Home Medications: Ambulatory Orders Arformoterol Tartrate [Brovana] 15 mcg IH DAILY 01/02/15 Losartan Potassium 50 mg PO DAILY 01/02/15 Metformin HCl 500 mg PO TID PRN 01/02/15 Mometasone Furoate [Asmanex 220Mcg -] 1 inh IH DAILY 01/02/15 Tiotropium [place] [Spiriva] 1 inh PO DAILY 01/02/15 Albuterol 0.083% Nebulizer Delmi [Ventolin 0.083% Nebulizer Soln -] 1 neb NEB Q4H PRN #1 box 10/12/15 Prednisone 40 mg PO ASDIR 04/25/16 Family Disease History - Family Disease History Family History: Denies Review of Systems - Review of Systems Eyes: reports: No Symptoms HENT: reports: No Symptoms Neck: reports: No Symptoms Cardiovascular: reports: Shortness of Breath Respiratory: reports: SOB on Exertion Gastrointestinal: reports: No Symptoms Genitourinary: reports: No Symptoms Breasts: reports: No Symptoms Reported Musculoskeletal: reports: No Symptoms Integumentary: reports: No Symptoms Neurological: reports: No Symptoms Endocrine: reports: No Symptoms Hematology/Lymphatic: reports: No Symptoms Psychiatric: reports: Altered Sleep Pattern, Anxiety - Risk Factors Known Risk Factors: Yes: Age, Diabetes Mellitus, Hypercholesterolemia, Hypertension, Race, Smoking (quit years ago) Vital Signs: Vital Signs Temperature 98.0 F 04/26/16 18:00 Pulse Rate 80 04/26/16 18:00 Respiratory Rate 20 04/26/16 18:00 Blood Pressure 150/76 04/26/16 18:00 O2 Sat by Pulse Oximetry (%) 96 04/26/16 16:00 Constitutional: Yes: Anxious Eyes: Yes: WNL HENT: Yes: WNL Neck: Yes: WNL Respiratory: Yes: Diminished Gastrointestinal: Yes: Soft Renal/: No: Anuria Cardiovascular: Yes: Regular Rate and Rhythm JVD: No Carotid Bruit: No PMI: Non-Displaced Heart Sounds: Yes: S1, S2, S4 Murmur: Yes: Systolic Murmur, Grade 1 Musculoskeletal: Yes: WNL Extremities: Yes: WNL Edema: No Peripheral Pulses WNL: Yes Integumentary: Yes: WNL Neurological: Yes: Alert, Oriented Psychiatric: Yes: WNL - Other Data Labs, Other Data: CBC, BMP 04/26/16 05:27 04/26/16 05:27 INR, PTT INR 0.88 (0.82-1.09) 04/25/16 05:40 Imaging - Results Chest X-ray: Image Reviewed (no acute pathology) EKG: Pending Problem List - Problems (1) Asthma exacerbation in COPD Code(s): J44.1 - CHRONIC OBSTRUCTIVE PULMONARY DISEASE W (ACUTE) EXACERBATION J45.901 - UNSPECIFIED ASTHMA WITH (ACUTE) EXACERBATION (2) Diabetes Assessment/Plan: f/u HGBA1c. Code(s): E11.9 - TYPE 2 DIABETES MELLITUS WITHOUT COMPLICATIONS (3) Hypertension Assessment/Plan: on losartan; f/u BP serially (pt says she urinates frequently; resists starting diuretic). Code(s): I10 - ESSENTIAL (PRIMARY) HYPERTENSION (4) Weakness Code(s): R53.1 - WEAKNESS (5) Osteoporosis Code(s): M81.0 - AGE-RELATED OSTEOPOROSIS W/O CURRENT PATHOLOGICAL FRACTURE (6) Diastolic CHF Assessment/Plan: BNP 54 TNI 0.02 x 2. F/u EKG. ECHO for LVEF. Code(s): I50.30 - UNSPECIFIED DIASTOLIC (CONGESTIVE) HEART FAILURE (7) Hypercholesteremia Assessment/Plan: f/u lipid profile; pt likely should be on statin. Code(s): E78.0 - PURE HYPERCHOLESTEROLEMIA * DO NOT USE *
--- NOTE | 2016-04-27 03:29 | PN ---
Progress Note, Physician Chief Complaint: Pt alert; sitting up OOB; still dyspneic on mild exertion. History of Present Illness: The patient is a 75 year old black female with significant past medical history of hypertension, diabetes, COPD/asthma, diastolic CHF, OSAS, osteoporosis, ? carotid artery disease (50-69% bilateral stenosis on 02/11 [place]), who presents to the ED with 4 days of SOB. Patient states she developed SOB with associated chest tightness and productive cough. Initially she had productive cough with green sputum, but the sputum is now whitish and clear. She is currently steroid dependent and is on 60mg of prednisone. Patient denies any sick contacts or recent travels. Until recently, she has been walking up to 5 miles daily without signficant dyspnea or chest discomfort. (Hx coronary angiogram done in this hospital several years ago, reportedly with patent coronary arteries). The patient denies fever, chills, chest pain, and palpitations. The patient denies abdominal pain, nausea, vomiting, and diarrhea. Allergies: Iodinated Contrast Media, tetracycline Social History: Denies alcohol, tobacco, and drug use. Past Surgical History: Breast Biopsy, Tubal Ligation PCP: Dr. 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 Cevallos - Current Medication List Current Medications: Active Medications Albuterol Sulfate (Ventolin 0.083% Nebulizer Soln -) 1 amp NEB Q4H PRN PRN Reason: SHORT OF BREATH/WHEEZING Albuterol/Ipratropium (Duoneb -) 1 amp NEB QIDR [facility] Last Admin: 04/26/16 23:38 Dose: 1 amp Enoxaparin Sodium (Lovenox -) 40 mg SQ DAILY [facility] Last Admin: 04/26/16 09:51 Dose: 40 mg Fluconazole (Diflucan -) 100 mg PO DAILY [facility] Stop: 04/28/16 12:00 Last Admin: 04/26/16 09:59 Dose: 100 mg Insulin Aspart (Novolog Vial Sliding Scale -) 1 vial SQ ACHS [facility] PRN Reason: Protocol Last Admin: 04/26/16 22:45 Dose: 10 units Levofloxacin (Levaquin -) 750 mg PO DAILY CORNELL Losartan Potassium (Cozaar -) 50 mg PO DAILY [facility] Last Admin: 04/26/16 09:51 Dose: 50 mg Methylprednisolone Sodium Succinate (Solu-Medrol -) 60 mg IVPB Q6H-IV [facility] Last Admin: 04/27/16 02:27 Dose: 60 mg Mometasone Furoate (Asmanex 220mcg -) 1 puff IH DAILY [facility]NE[facility] Last Admin: 04/26/16 09:59 Dose: 1 puff Montelukast Sodium (Singulair -) 10 mg PO HS CORNELL Last Admin: 04/26/16 22:46 Dose: 10 mg Pantoprazole Sodium (Protonix -) 40 mg PO DAILY CORNELL Last Admin: 04/26/16 15:39 Dose: 40 mg Zolpidem Tartrate (Ambien -) 5 mg PO HS PRN PRN Reason: INSOMNIA Last Admin: 04/26/16 22:46 Dose: 5 mg - Objective Vital Signs: Vital Signs Temperature 98.0 F 04/26/16 18:00 Pulse Rate 80 04/26/16 18:00 Respiratory Rate 20 04/26/16 18:00 Blood Pressure 150/76 04/26/16 18:00 O2 Sat by Pulse Oximetry (%) 96 04/26/16 16:00 Constitutional: Yes: Anxious Eyes: Yes: WNL HENT: Yes: WNL Neck: Yes: WNL Cardiovascular: Yes: Regular Rate and Rhythm Respiratory: Yes: Diminished, Rhonchi (expiratory), SOB on Exertion Gastrointestinal: Yes: Soft ...Rectal Exam: Yes: Deferred Genitourinary: No: Anuria Breast(s): Yes: WNL Musculoskeletal: Yes: WNL Extremities: Yes: WNL Edema: No Peripheral Pulses WNL: Yes Integumentary: Yes: WNL Labs: CBC, BMP 04/26/16 05:27 04/26/16 05:27 INR, PTT INR 0.88 (0.82-1.09) 04/25/16 05:40 Abnormal Lab Results 04/26/16 04/26/16 04/26/16 05:27 05:27 20:35 WBC 13.7 H MCHC 31.9 L Sodium 134 L Anion Gap 5 L BUN 23 H D Random Glucose 201 H D AST 10 L D Cholesterol Total LDL Cholesterol HDL Cholesterol TSH 0.07 L 04/26/16 20:35 WBC MCHC Sodium Anion Gap BUN Random Glucose AST Cholesterol 242 H Total LDL Cholesterol 106 H HDL Cholesterol 120 H TSH Problem List - Problems (1) Asthma exacerbation in COPD Assessment/Plan: f/u with electrolysis investigator. Code(s): J44.1 - CHRONIC OBSTRUCTIVE PULMONARY DISEASE W (ACUTE) EXACERBATION J45.901 - UNSPECIFIED ASTHMA WITH (ACUTE) EXACERBATION (2) Diabetes Assessment/Plan: f/u HGBA1c. Code(s): E11.9 - TYPE 2 DIABETES MELLITUS WITHOUT COMPLICATIONS (3) Hypertension Assessment/Plan: on losartan; f/u BP serially (pt says she urinates frequently; resists starting diuretic). Weight loss and dietary modification, including using less salt, are important, and were discussed. Code(s): I10 - ESSENTIAL (PRIMARY) HYPERTENSION (4) Weakness Code(s): R53.1 - WEAKNESS (5) Osteoporosis Code(s): M81.0 - AGE-RELATED OSTEOPOROSIS W/O CURRENT PATHOLOGICAL FRACTURE (6) Diastolic CHF Assessment/Plan: BNP 54 TNI 0.02 x 3. F/u EKG. F/u TFTS. ECHO for LVEF. Code(s): I50.30 - UNSPECIFIED DIASTOLIC (CONGESTIVE) HEART FAILURE (7) Hypercholesteremia Assessment/Plan: f/u lipid profile; pt likely should be on statin. Code(s): E78.0 - PURE HYPERCHOLESTEROLEMIA * DO NOT USE *
[2016-04-27 03:39] LABS: FREE T4 1.09 ng/dl (0.76-1.46)
[2016-04-27] MEDS: INSULIN SLIDING SCALE (NOVOLOG) 1 VIAL SQ SCH ×4 (06:35→23:25)
[2016-04-27] MEDS: ALBUTEROL SO4 2.5/IPRATROPIUM 0.5 INH SOL 3 ML VIAL.NEB. NEB SCH ×4 (06:49→23:15)
[2016-04-27 07:18] LABS: MCH 27.5 pg (25.7-33.7); MCHC 31.9 g/dl (32.0-36.0); MEAN CELL VOLUME 86.2 fl (80-96); MEAN PLT VOLUME 9.7 fl (7.5-11.1); NEUTROPHILS 88.6 % (42.8-82.8); PLATELET COUNT 221 K/MM3 (134-434); RDW 14.8 % (11.6-15.6); WHITE BLOOD COUNT 18.2 K/mm3 (4.0-10.0)
[2016-04-27 07:49] LABS: ALBUMIN 3.3 g/dl (3.4-5.0); ANION GAP 8 (8-16); BILIRUBIN,TOTAL 0.5 mg/dL (0.2-1.0); CO2 25 mmol/L (21-32); GLUCOSE,RANDOM 211 mg/dL (74-106); SGOT/AST 10 U/L (15-37); SGPT/ALT 28 U/L (12-78); TOT PROT 6.4 g/dl (6.4-8.2)
[2016-04-27 07:51] LABS: ALK PHOS 54 U/L (45-117); CALCIUM 9.7 mg/dL (8.5-10.1); CREATININE 0.7 mg/dL (0.55-1.02)
[2016-04-27] MEDS ORDERED: PT OWN MED DRAWER 7, Y5N ONE ×2 (10:35→18:57)
[2016-04-27] MEDS: MOMETASONE FUROATE 220 MCG/IH INHALER IH SCH (10:44)
[2016-04-27] MEDS: ENOXAPARIN NA (PORCINE) 40 MG/0.4 ML DISP.SYRIN SQ SCH (10:44)
[2016-04-27] MEDS: FLUCONAZOLE 100 MG TABLET (UD) PO SCH (10:45)
[2016-04-27] MEDS: PANTOPRAZOLE 40 MG TABLET (FP) PO SCH (10:45)
[2016-04-27] MEDS: LEVOFLOXACIN 250 MG TABLET (FP) PO SCH (10:45)
[2016-04-27] MEDS: LOSARTAN POTASSIUM 50 MG TABLET (FP) PO SCH (10:54)
[2016-04-27] MEDS ORDERED: INSULIN (NOVOLOG) ASPART 100 UNITS/ML 10ML VIAL ONE (12:17)
--- NOTE | 2016-04-27 13:56 | PN ---
Progress Note (short form) - Note Progress Note: PULMONARY OOB TO CHAIR REMAINS WITH CONGESTED COUGH VSS ANICTERIC B/L DIFFUSE RHONCHI/WHEEZE S1S2 BS+ NO EDEMA LABS/MEDS/NOTES/MICRO/IMAGING REVIEWED Acute COPD/Asthma Exacerbation HTN DM Osteoarthritis - continue medrol at current dose - inhaled bronchodilators standing and PRN - hold spiriva while pt on standing duonebs - O2 as needed - f/u cultures - glucose control while on systemic steroids - DVT prophylaxis Geneva GONZALEZ MD Problem List - Problems (1) COPD exacerbation Code(s): J44.1 - CHRONIC OBSTRUCTIVE PULMONARY DISEASE W (ACUTE) EXACERBATION (2) Asthma exacerbation Code(s): J45.901 - UNSPECIFIED ASTHMA WITH (ACUTE) EXACERBATION (3) Asthma exacerbation in COPD Code(s): J44.1 - CHRONIC OBSTRUCTIVE PULMONARY DISEASE W (ACUTE) EXACERBATION J45.901 - UNSPECIFIED ASTHMA WITH (ACUTE) EXACERBATION (4) Diabetes Code(s): E11.9 - TYPE 2 DIABETES MELLITUS WITHOUT COMPLICATIONS (5) Hypertension Code(s): I10 - ESSENTIAL (PRIMARY) HYPERTENSION (6) Osteoarthritis Code(s): M19.90 - UNSPECIFIED OSTEOARTHRITIS, UNSPECIFIED SITE
--- NOTE | 2016-04-27 15:07 | PN ---
Physical Exam: SUBJECTIVE: Patient seen and examined. She states she still feels congested but is improving. She is able to ambulate without oxygen but gets winded easily. Overall, she reports good improvement and is eager to get off the IV steroids. OBJECTIVE: Vital Signs Period Temp Pulse Resp BP Sys/Stallings Pulse Ox Last 24 Hr 97.8 F-98.1 F 74-91 20-20 129-151/68-76 91-96 GENERAL: Awake, alert, and fully oriented, respiratory distress improving but noted to still have wheezing and shortness of breath with ambulation. HEAD: Normal with no signs of trauma. EYES: Pupils equal, round and reactive to light, extraocular movements intact, sclera anicteric, conjunctiva clear. No lid lag. EARS, NOSE, THROAT: Ears normal, nares patent, oropharynx clear without exudates. Moist mucous membranes. NECK: Normal range of motion, supple without lymphadenopathy, JVD, or masses. LUNGS: Bilateral lungs with scattered expiratory wheezing HEART: Regular rate and rhythm ABDOMEN: Soft, nontender, not distended, normoactive bowel sounds, last BM today MUSCULOSKELETAL: Normal range of motion at all joints. No bony deformities or tenderness. No CVA tenderness. UPPER EXTREMITIES: 2+ pulses, warm, well-perfused. LOWER EXTREMITIES: 2+ pulses, warm, well-perfused. No calf tenderness. No peripheral edema. NEUROLOGICAL: Normal speech. PSYCHIATRIC: Cooperative. Good eye contact. Appropriate mood and affect. SKIN: Warm, dry, normal turgor, no rashes or lesions noted. Laboratory Results - last 24 hr 04/26/16 04/26/16 04/26/16 16:14 20:35 20:35 WBC RBC Hgb Hct MCV MCHC RDW Plt Count MPV Neutrophils % Lymphocytes % Monocytes % Eosinophils % Basophils % Sodium Potassium Chloride Carbon Dioxide Anion Gap BUN Creatinine Creat Clearance w eGFR POC Glucometer 196 Random Glucose Hemoglobin A1c % Calcium Total Bilirubin AST ALT Alkaline Phosphatase Total Protein Albumin Triglycerides 132 Cholesterol 242 H Total LDL Cholesterol 106 H HDL Cholesterol 120 H TSH 0.07 L Free T4 1.09 04/26/16 04/27/16 04/27/16 22:44 03:00 05:35 WBC 18.2 H D RBC 4.55 Hgb 12.5 Hct 39.2 MCV 86.2 MCHC 31.9 L RDW 14.8 Plt Count 221 MPV 9.7 Neutrophils % 88.6 H D Lymphocytes % 7.8 L D Monocytes % 3.6 L Eosinophils % 0.0 D Basophils % 0.0 Sodium Potassium Chloride Carbon Dioxide Anion Gap BUN Creatinine Creat Clearance w eGFR POC Glucometer 326 Random Glucose Hemoglobin A1c % 7.1 H Calcium Total Bilirubin AST ALT Alkaline Phosphatase Total Protein Albumin Triglycerides Cholesterol Total LDL Cholesterol HDL Cholesterol TSH Free T4 04/27/16 04/27/16 04/27/16 05:35 06:33 12:15 WBC RBC Hgb Hct MCV MCHC RDW Plt Count MPV Neutrophils % Lymphocytes % Monocytes % Eosinophils % Basophils % Sodium 139 Potassium 4.4 Chloride 106 Carbon Dioxide 25 Anion Gap 8 BUN 27 H Creatinine 0.7 Creat Clearance w eGFR > 60 POC Glucometer 184 326 Random Glucose 211 H Hemoglobin A1c % Calcium 9.7 Total Bilirubin 0.5 AST 10 L ALT 28 Alkaline Phosphatase 54 Total Protein 6.4 Albumin 3.3 L Triglycerides Cholesterol Total LDL Cholesterol HDL Cholesterol TSH Free T4 Active Medications Generic Name Dose Route Start Last Admin Trade Name Freq PRN Reason Stop Dose Admin Albuterol Sulfate 1 amp 04/26/16 13:21 Ventolin 0.083% Nebulizer Soln - NEB Q4H PRN SHORT OF BREATH/WHEEZING Albuterol/Ipratropium 1 amp 04/25/16 12:00 04/27/16 11:45 Duoneb - NEB 1 amp QIDR CORNELL Administration Atorvastatin Calcium 10 mg 04/27/16 22:00 Lipitor - PO HS CORNELL Enoxaparin Sodium 40 mg 04/25/16 10:00 04/27/16 10:44 Lovenox - SQ 40 mg DAILY CORNELL Administration Fluconazole 100 mg 04/25/16 12:45 04/27/16 10:45 Diflucan - PO 04/28/16 12:00 100 mg DAILY CORNELL Administration Insulin Aspart 1 vial 04/26/16 11:51 04/27/16 12:23 Novolog Vial Sliding Scale - SQ 10 units ACHS CORNELL Administration Protocol Levofloxacin 750 mg 04/27/16 10:00 04/27/16 10:45 Levaquin - PO 750 mg DAILY CORNELL Administration Losartan Potassium 50 mg 04/25/16 10:00 04/27/16 10:54 Cozaar - PO 50 mg DAILY CORNELL Administration Methylprednisolone Sodium Succinate 60 mg 04/25/16 12:00 04/27/16 10:44 Solu-Medrol - IVPB 60 mg Q6H-IV CORNELL Administration Mometasone Furoate 1 puff 04/25/16 10:00 04/27/16 10:44 Asmanex 220mcg - IH 1 puff DAILY CORNELL Administration Montelukast Sodium 10 mg 04/25/16 22:00 04/26/16 22:46 Singulair - PO 10 mg HS CORNELL Administration Pantoprazole Sodium 40 mg 04/26/16 12:00 04/27/16 10:45 Protonix - PO 40 mg DAILY CORNE[facility] Administration Zolpidem Tartrate 5 mg 04/25/16 11:40 04/26/16 22:46 Ambien - PO 5 mg HS PRN Administration INSOMNIA ASSESSMENT/PLAN: Mrs. Kay is a 75 year old female with a past medical history significnat for asthma, COPD, hypertension and Diabetes mellitus. She presented to the ED earlier this morning with a productive cough, shortness of breath for 4 days and chest tightness when taking a deep breath. She reports her symptoms were gradually getting worse at home despite home inhalers. She was recently admitted to [facility] on 04/11/2016 for asthma exacerbation in COPD and discharged on 04/12/2016. She reports her symptoms are similar to her symptoms on last admission. She denies fever, chills, recent travel and sick contacts. She is a former smoker and denies any environmental exposures. She lives alone in an apartment in [place]. No pets. Pulmonary: COPD Exacerbation - acute on a chronic condition Assessment/Plan: Patient reports feeling better but is still having some chest congestion and dyspnea with ambulation. She is not oxygen dependent at home. She is using the oxygen as needed but feels like she is needing it less. As per pulmonary, continue Solumedrol 60mg q 6, supplemental oxygen and Levaquin 750mg PO. Will get a pre and post oxygen level for anticipated discharge tomorrow Hematology: Leukocytosis - acute Assessment/Plan: WBC elevated at 18.2, most likely steroid induced Will order blood cultures with a.m. labs and monitor She is afebrile, reports feeling well, non toxic appearing Cardiology: Hypertension - chronic Assessment/Plan: Hypertension controlled with Cozaar 50mg daily Echo: LV fx normal, mild MR, mild TR, no aortic stenosis, mild aorgic regurg, no pericardial eff. Chest Pain - resolved Most likely secondary to respiratory status EKG: normal sinus in the 70s, with possible left atrial enlargement Left ventricular hypertrophy, ST elevation Troponin negative x 3 Endocrine: Diabetes mellitus - chronic Assessment/Plan: Metformin on hold, started on Novolog sliding scale Capillary glucose checks, monitor closely-on a tighter control of insulin F.E.N. Fluids: tolerating adequate PO intake Electrolytes: dehydration improving, slightly hyponatremic - monitor Nutrition: Diabetic diet Prophylaxis: DVT: Lovenox 40mg SC, ambulation GI: Colace prn Disposition. Requires inpatient hospitalization. Potential discharge tomorrow. Full Code. Visit type - Emergency Visit Emergency Visit: Yes ED Registration Date: 04/25/16 Care time: The patient presented to the Emergency Department on the above date and was hospitalized for further evaluation of their emergent condition. - New Patient This patient is new to me today: No - Critical Care Critical Care patient: No - Discharge Referral Referred to [facility] No
--- NOTE | 2016-04-27 16:35 | EKG ---
Test Reason : Blood Pressure : / mmHG Vent. Rate : 078 BPM Atrial Rate : 078 BPM P-R Int : 128 ms QRS Dur : 088 ms QT Int : 386 ms P-R-T Axes : 068 047 060 degrees QTc Int : 440 ms NORMAL SINUS RHYTHM POSSIBLE LEFT ATRIAL ENLARGEMENT ST ELEVATION, CONSIDER EARLY REPOLARIZATION BORDERLINE ECG WHEN COMPARED WITH ECG OF 25-APR-2016 05:55, NO SIGNIFICANT CHANGE WAS FOUND Confirmed by MD DIANA, JOHNNIE ([id number]) on 04/27/2016 4:34:44 PM Referred By: VENICE MURILLO Overread By: JOHNNIE ORTIZ MD
--- NOTE | 2016-04-27 17:51 | PN ---
Progress Note, Physician Chief Complaint: Pt alert;sitting up at bedside; still with periods of dyspnea. Pt's son is at bedside. History of Present Illness: The patient is a 75 year old black female with significant past medical history of hypertension, diabetes, COPD/asthma, diastolic CHF, OSAS, osteoporosis, ? carotid artery disease (50-69% bilateral stenosis on 02/11 [place]), who presents to the ED with 4 days of SOB. Patient states she developed SOB with associated chest tightness and productive cough. Initially she had productive cough with green sputum, but the sputum is now whitish and clear. She is currently steroid dependent and is on 60mg of prednisone. Patient denies any sick contacts or recent travels. Until a week ago, she had been walking up to 10 miles daily (5 miles on gym equipment; 5 miles outdoors) without signficant dyspnea or chest discomfort. ( Hx coronary angiogram done in this hospital several years ago, reportedly with patent coronary arteries). The patient denies fever, chills, chest pain, and palpitations. The patient denies abdominal pain, nausea, vomiting, and diarrhea. Allergies: Iodinated Contrast Media, tetracycline Social History: Denies alcohol, tobacco, and drug use. Past Surgical History: Breast Biopsy, Tubal Ligation PCP: Dr. Yeni Dejesus Roll Handler: Dr. Marquise Perea Forest Officer: Dr. Cevallos - Current Medication List Current Medications: Active Medications Albuterol Sulfate (Ventolin 0.083% Nebulizer Soln -) 1 amp NEB Q4H PRN PRN Reason: SHORT OF BREATH/WHEEZING Albuterol/Ipratropium (Duoneb -) 1 amp NEB QIDR CORNE[facility] Last Admin: 04/27/16 11:45 Dose: 1 amp Atorvastatin Calcium (Lipitor -) 10 mg PO HS CORNE[facility] Enoxaparin Sodium (Lovenox -) 40 mg SQ DAILY CORNELL Last Admin: 04/27/16 10:44 Dose: 40 mg Fluconazole (Diflucan -) 100 mg PO DAILY CORNELL Stop: 04/28/16 12:00 Last Admin: 04/27/16 10:45 Dose: 100 mg Insulin Aspart (Novolog Vial Sliding Scale -) 1 vial SQ ACHS CORNE[facility] PRN Reason: Protocol Last Admin: 04/27/16 17:11 Dose: Not Given Levofloxacin (Levaquin -) 750 mg PO DAILY [facility] Last Admin: 04/27/16 10:45 Dose: 750 mg Losartan Potassium (Cozaar -) 50 mg PO DAILY [facility] Last Admin: 04/27/16 10:54 Dose: 50 mg Methylprednisolone Sodium Succinate (Solu-Medrol -) 60 mg IVPB Q6H-IV [facility] Last Admin: 04/27/16 16:10 Dose: 60 mg Mometasone Furoate (Asmanex 220mcg -) 1 puff IH DAILY [facility] Last Admin: 04/27/16 10:44 Dose: 1 puff Montelukast Sodium (Singulair -) 10 mg PO HS [facility] Last Admin: 04/26/16 22:46 Dose: 10 mg Pantoprazole Sodium (Protonix -) 40 mg PO DAILY [facility] Last Admin: 04/27/16 10:45 Dose: 40 mg Zolpidem Tartrate (Ambien -) 5 mg PO HS PRN PRN Reason: INSOMNIA Last Admin: 04/26/16 22:46 Dose: 5 mg - Objective Vital Signs: Vital Signs Temperature 98.1 F 04/27/16 14:27 Pulse Rate 80 04/27/16 14:27 Respiratory Rate 22 04/27/16 14:27 Blood Pressure 142/78 04/27/16 14:27 O2 Sat by Pulse Oximetry (%) 95 04/27/16 14:00 Constitutional: Yes: Anxious Eyes: Yes: WNL HENT: Yes: WNL Neck: Yes: WNL Cardiovascular: Yes: Regular Rate and Rhythm, S1, S2, S4 Respiratory: Yes: Wheezes, Other (prolonged expiratory effort) Gastrointestinal: Yes: Soft ...Rectal Exam: Yes: Deferred Genitourinary: No: Anuria Extremities: Yes: WNL Edema: No Peripheral Pulses WNL: Yes Integumentary: Yes: WNL Neurological: Yes: Alert, Oriented Psychiatric: Yes: Alert, Oriented Labs: CBC, BMP 04/27/16 05:35 04/27/16 05:35 INR, PTT INR 0.88 (0.82-1.09) 04/25/16 05:40 Abnormal Lab Results 04/27/16 04/27/16 04/27/16 03:00 05:35 05:35 WBC 18.2 H D MCHC 31.9 L Neutrophils % 88.6 H D Lymphocytes % 7.8 L D Monocytes % 3.6 L BUN 27 H Random Glucose 211 H Hemoglobin A1c % 7.1 H AST 10 L Albumin 3.3 L - ....Imaging Ultrasound: Image Reviewed (ECHO: normal LVEF; abnormal diastolic compliance; mild MR, AR, TR, and SD.) EKG: Image Reviewed (NSR; early repolarization changes) Problem List - Problems (1) Diabetes Assessment/Plan: HGBA1C 7.1. F/u with medications, dietary guidelines, weight loss. 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 Code(s): J44.1 - CHRONIC OBSTRUCTIVE PULMONARY DISEASE W (ACUTE) EXACERBATION J45.901 - UNSPECIFIED ASTHMA WITH (ACUTE) EXACERBATION (3) Hypertension Assessment/Plan: on losartan; f/u BP serially (pt says she urinates frequently; resists starting diuretic). Weight loss and dietary modification, including using less salt, are important, and were discussed. Code(s): I10 - ESSENTIAL (PRIMARY) HYPERTENSION (4) Weakness Code(s): R53.1 - WEAKNESS (5) Osteoporosis Code(s): M81.0 - AGE-RELATED OSTEOPOROSIS W/O CURRENT PATHOLOGICAL FRACTURE (6) Diastolic CHF Assessment/Plan: ECHO: normal LVEF; abnormal diastolic compliance; mild MR, TR, SD, and AR. BNP 54 TNI 0.02 x 3. EKG unchanged. TFTS (low TSH; normal free T4; free T3 pending). Code(s): I50.30 - UNSPECIFIED DIASTOLIC (CONGESTIVE) HEART FAILURE (7) Hypercholesteremia Assessment/Plan: On atorvastatin (would increase dose and keep LDL cholesterol <70 mg/dL). Code(s): E78.0 - PURE HYPERCHOLESTEROLEMIA * DO NOT USE *
[2016-04-27] MEDS: ATORVASTATIN CA 10 MG TABLET (FP) PO SCH (22:38)
[2016-04-27] MEDS: MONTELUKAST NA 10 MG TABLET PO SCH (22:38)
[2016-04-28] MEDS: ZOLPIDEM TARTRATE 5 MG TABLET PO PRN (00:08)
[2016-04-28] MEDS: methylPREDNISolone NA SUCC 40 MG/1 ML VIAL IVPB SCH ×3 (02:43→17:06)
[2016-04-28] MEDS: ALBUTEROL SO4 2.5/IPRATROPIUM 0.5 INH SOL 3 ML VIAL.NEB. NEB SCH ×3 (06:50→23:42)
[2016-04-28] MEDS: INSULIN SLIDING SCALE (NOVOLOG) 1 VIAL SQ SCH ×4 (07:43→21:46)
[2016-04-28 08:26] LABS: BASOPHIL 0.1 % (0-2.0); MCH 27.5 pg (25.7-33.7); MCHC 32.1 g/dl (32.0-36.0); MEAN CELL VOLUME 85.7 fl (80-96); MEAN PLT VOLUME 10.7 fl (7.5-11.1); PLATELET COUNT 227 K/MM3 (134-434); RDW 14.8 % (11.6-15.6); WHITE BLOOD COUNT 16.5 K/mm3 (4.0-10.0)
[2016-04-28 08:46] LABS: ALBUMIN 3.5 g/dl (3.4-5.0); ALK PHOS 57 U/L (45-117); BILIRUBIN,TOTAL 0.5 mg/dL (0.2-1.0); CALCIUM 9.3 mg/dL (8.5-10.1); CO2 24 mmol/L (21-32); CREATININE 0.8 mg/dL (0.55-1.02); GLUCOSE,RANDOM 262 mg/dL (74-106); SGOT/AST 9 U/L (15-37); SGPT/ALT 30 U/L (12-78); TOT PROT 6.8 g/dl (6.4-8.2)
[2016-04-28 09:29] LABS: ANION GAP 16 (8-16)
[2016-04-28] MEDS ORDERED: PT OWN MED DRAWER 7, Y5N ONE (09:29)
[2016-04-28] MEDS: MOMETASONE FUROATE 220 MCG/IH INHALER IH SCH (09:35)
[2016-04-28] MEDS: LEVOFLOXACIN 250 MG TABLET (FP) PO SCH (09:36)
[2016-04-28] MEDS: LOSARTAN POTASSIUM 50 MG TABLET (FP) PO SCH (09:36)
[2016-04-28] MEDS: PANTOPRAZOLE 40 MG TABLET (FP) PO SCH (09:37)
[2016-04-28] MEDS: ENOXAPARIN NA (PORCINE) 40 MG/0.4 ML DISP.SYRIN SQ SCH (09:37)
[2016-04-28] MEDS: FLUCONAZOLE 100 MG TABLET (UD) PO SCH (10:53)
[2016-04-28 11:04] LABS: PLATELET COMMENT2 NO CLOTTING DETECTED; PLATELET ESTIMATE ADEQUATE (NORMAL)
[2016-04-28] MEDS ORDERED: INSULIN (NOVOLOG) ASPART 100 UNITS/ML 10ML VIAL ONE (11:10)
--- NOTE | 2016-04-28 11:32 | PN ---
Progress Note (short form) - Note Progress Note: PULMONARY OOB TO CHAIR REMAINS WITH CONGESTED COUGH PEAK FLOW 220L/M VSS ANICTERIC B/L DIFFUSE RHONCHI/WHEEZE S1S2 BS+ NO EDEMA LABS/MEDS/NOTES/MICRO/IMAGING REVIEWED Acute COPD/Asthma Exacerbation HTN DM Osteoarthritis - continue medrol dose adjusted - inhaled bronchodilators standing and PRN - hold spiriva while pt on standing duonebs - O2 as needed - f/u cultures - glucose control while on systemic steroids - DVT prophylaxis Geneva GONZALEZ MD Problem List - Problems (1) COPD exacerbation Code(s): J44.1 - CHRONIC OBSTRUCTIVE PULMONARY DISEASE W (ACUTE) EXACERBATION (2) Asthma exacerbation Code(s): J45.901 - UNSPECIFIED ASTHMA WITH (ACUTE) EXACERBATION (3) Asthma exacerbation in COPD Code(s): J44.1 - CHRONIC OBSTRUCTIVE PULMONARY DISEASE W (ACUTE) EXACERBATION J45.901 - UNSPECIFIED ASTHMA WITH (ACUTE) EXACERBATION (4) Diabetes Code(s): E11.9 - TYPE 2 DIABETES MELLITUS WITHOUT COMPLICATIONS (5) Hypertension Code(s): I10 - ESSENTIAL (PRIMARY) HYPERTENSION (6) Osteoarthritis Code(s): M19.90 - UNSPECIFIED OSTEOARTHRITIS, UNSPECIFIED SITE
--- NOTE | 2016-04-28 12:59 | PN ---
Progress Note, Physician History of Present Illness: seen and examined today in nad. still coughing, still sob. - Current Medication List Current Medications: Active Medications Albuterol Sulfate (Ventolin 0.083% Nebulizer Soln -) 1 amp NEB Q4H PRN PRN Reason: SHORT OF BREATH/WHEEZING Albuterol/Ipratropium (Duoneb -) 1 amp NEB QIDR [facility] Last Admin: 04/28/16 06:50 Dose: 1 amp Atorvastatin Calcium (Lipitor -) 10 mg PO HS [facility] Last Admin: 04/27/16 22:38 Dose: 10 mg Enoxaparin Sodium (Lovenox -) 40 mg SQ DAILY [facility] Last Admin: 04/28/16 09:37 Dose: 40 mg Insulin Aspart (Novolog Vial Sliding Scale -) 1 vial SQ ACHS [facility] PRN Reason: Protocol Last Admin: 04/28/16 11:30 Dose: 6 units Levofloxacin (Levaquin -) 750 mg PO DAILY [facility] Last Admin: 04/28/16 09:36 Dose: 750 mg Losartan Potassium (Cozaar -) 50 mg PO DAILY [facility] Last Admin: 04/28/16 09:36 Dose: 50 mg Methylprednisolone Sodium Succinate (Solu-Medrol -) 40 mg IVPB Q8H-IV CORNELL Mometasone Furoate (Asmanex 220mcg -) 1 puff IH DAILY [facility] Last Admin: 04/28/16 09:35 Dose: 1 puff Montelukast Sodium (Singulair -) 10 mg PO HS [facility] Last Admin: 04/27/16 22:38 Dose: 10 mg Pantoprazole Sodium (Protonix -) 40 mg PO DAILY [facility] Last Admin: 04/28/16 09:37 Dose: 40 mg - Objective Vital Signs: Vital Signs Temperature 97.8 F 04/28/16 06:00 Pulse Rate 77 04/28/16 10:50 Respiratory Rate 20 04/28/16 06:00 Blood Pressure 143/75 04/28/16 06:00 O2 Sat by Pulse Oximetry (%) 98 04/28/16 10:50 Constitutional: Yes: Well Nourished, No Distress, Calm Eyes: Yes: WNL, Conjunctiva Clear, EOM Intact, PERRL HENT: Yes: WNL, Atraumatic, Normocephalic Neck: Yes: WNL, Supple, Trachea Midline Cardiovascular: Yes: Regular Rate and Rhythm, S1, S2. No: Bradycardia, Tachycardia, Pulse Irregular, Bruit, JVD, Gallop, Murmur, Rub, S3, S4, Varicosities Respiratory: Yes: Regular, Cough, Rhonchi, SOB, Wheezes. No: Rales Gastrointestinal: Yes: WNL, Normal Bowel Sounds, Soft. No: Distention, Tenderness Musculoskeletal: Yes: WNL Extremities: Yes: WNL Edema: No Peripheral Pulses WNL: Yes Peripheral Pulses: Left Doralis Pedis: 2+, Right Dorsalis Pedis: 2+ Integumentary: Yes: WNL Neurological: Yes: WNL, Alert, Oriented, Cran Nerves II-XII Intact ...Motor Strength: WNL Psychiatric: Yes: WNL, Alert, Oriented Labs: CBC, BMP 04/28/16 06:30 04/28/16 06:30 INR, PTT INR 0.88 (0.82-1.09) 04/25/16 05:40 - ....Imaging Chest X-ray: Report Reviewed, Image Reviewed EKG: Report Reviewed, Image Reviewed Other: Report Reviewed, Image Reviewed Assessment/Plan SOB-AE COPD -no sign of acute on chronic diastolic CHF -cont tx as per pulmonary HTN-slightly above goal but adequate for now -cont losartan HLD -cont lipitor
--- NOTE | 2016-04-28 15:51 | CONSULT ---
Consult Consult Specialty:: infectious diseases Reason for Consultation:: fungal infection in the sputum - History of Present Illness Chief Complaint: sob History of Present Illness: 5 year old female with a significant past medical history of COPD, asthma, hypertension, diabetes mellitus type 2 and UTI. She presented to the ED on with complaints of chest tightness, productive cough (green sputum) and shortness of breath. She states chest tightness occurred with coughing and taking a deep breath. 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 Cardio/Vascular: Yes: HTN Pulmonary: Yes: Asthma, COPD ...: No Psych: Yes: Anxiety Endocrine: Yes: Diabetes Mellitus - Past Surgical History Past Surgical History: Yes: Breast Biopsy, Tubal Ligation - Alcohol/Substance Use Hx Alcohol Use: No - Smoking History Smoking history: Never smoked Have you smoked in the past 12 months: No Aproximately how many cigarettes per day: 0 If you are a former smoker, when did you quit?: 1989 Home Medications - Allergies Allergies/Adverse Reactions: Allergies Allergy/AdvReac Type Severity Reaction Status Date / Time Iodinated Contrast Media - Allergy Unknown Verified 04/25/16 05:51 Oral and [IV Dye, Iodine Containing Contrast ] tetracycline [Tetracycline] Allergy Unknown Verified 04/25/16 05:51 shellfish derived Allergy Verified 04/25/16 06:39 - Home Medications Home Medications: Ambulatory Orders Arformoterol Tartrate [Brovana] 15 mcg IH DAILY 01/02/15 Losartan Potassium 50 mg PO DAILY 01/02/15 Metformin HCl 500 mg PO TID PRN 01/02/15 Mometasone Furoate [Asmanex 220Mcg -] 1 inh IH DAILY 01/02/15 Tiotropium [place] [Spiriva] 1 inh PO DAILY 01/02/15 Albuterol 0.083% Nebulizer Delmi [Ventolin 0.083% Nebulizer Soln -] 1 neb NEB Q4H PRN #1 box 10/12/15 Prednisone 40 mg PO ASDIR 04/25/16 Review of Systems - Review of Systems Constitutional: reports: No Symptoms Eyes: reports: No Symptoms HENT: reports: No Symptoms Neck: reports: No Symptoms Cardiovascular: reports: No Symptoms Respiratory: reports: Cough, SOB Gastrointestinal: reports: No Symptoms Musculoskeletal: reports: No Symptoms Integumentary: reports: No Symptoms Neurological: reports: No Symptoms Endocrine: reports: No Symptoms Hematology/Lymphatic: reports: No Symptoms Psychiatric: reports: No Symptoms Physical Exam Vital Signs: Vital Signs Temperature 97.4 F L 04/28/16 15:00 Pulse Rate 81 04/28/16 15:00 Respiratory Rate 20 04/28/16 15:00 Blood Pressure 140/79 04/28/16 15:00 O2 Sat by Pulse Oximetry (%) 98 04/28/16 10:50 Constitutional: Yes: Well Nourished, No Distress, Calm HENT: Yes: Atraumatic Neck: Yes: Supple Cardiovascular: Yes: Regular Rate and Rhythm Respiratory: Yes: Regular, Poor Air Entry, Rhonchi Gastrointestinal: Yes: Normal Bowel Sounds, Soft Musculoskeletal: Yes: WNL Extremities: Yes: WNL Neurological: Yes: Alert, Oriented Psychiatric: Yes: Alert Labs: CBC, BMP 04/28/16 06:30 04/28/16 06:30 Imaging - Results Chest X-ray: Report Reviewed Assessment/Plan patient evaluated and seen patient has been on chronic steroids and now she is coming in with copd exacerebration Hypertension Chest Pain Diabetes mellitus fungal lung infection plan will not start anything yet' ct scan of the chest will await identification of the species will ahve to make decision on further course
--- NOTE | 2016-04-28 16:02 | PN ---
Physical Exam: SUBJECTIVE: Patient seen and examined. She states she feels better, but still with some shortness of breath. Reports dyspnea with ambulation. States she still feels congested. OBJECTIVE: GENERAL: Awake, alert, and fully oriented, respiratory distress improving but noted to still have wheezing and shortness of breath with ambulation. HEAD: Normal with no signs of trauma. EYES: Pupils equal, round and reactive to light, extraocular movements intact, sclera anicteric, conjunctiva clear. No lid lag. EARS, NOSE, THROAT: Ears normal, nares patent, oropharynx clear without exudates. Moist mucous membranes. NECK: Normal range of motion, supple without lymphadenopathy, JVD, or masses. LUNGS: Bilateral lungs with scattered expiratory wheezing HEART: Regular rate and rhythm ABDOMEN: Soft, nontender, not distended, normoactive bowel sounds, last BM today MUSCULOSKELETAL: Normal range of motion at all joints. No bony deformities or tenderness. No CVA tenderness. UPPER EXTREMITIES: 2+ pulses, warm, well-perfused. LOWER EXTREMITIES: 2+ pulses, warm, well-perfused. No calf tenderness. No peripheral edema. NEUROLOGICAL: Normal speech. PSYCHIATRIC: Cooperative. Good eye contact. Appropriate mood and affect. SKIN: Warm, dry, normal turgor, no rashes or lesions noted. Vital Signs Period Temp Pulse Resp BP Sys/Stallings Pulse Ox Last 24 Hr 97.4 F-98.5 F 69-89 14-20 107-145/65-79 95-98 Laboratory Results - last 24 hr 04/27/16 04/27/16 04/27/16 03:00 16:54 17:10 WBC RBC Hgb Hct MCV MCHC RDW Plt Count MPV Neutrophils % Lymphocytes % Monocytes % Eosinophils % Basophils % Platelet Estimate Platelet Comment RBC Morphology Sodium Potassium 4.2 Chloride Carbon Dioxide Anion Gap BUN Creatinine Creat Clearance w eGFR POC Glucometer 150 Random Glucose Calcium Total Bilirubin AST ALT Alkaline Phosphatase Total Protein Albumin Free T3 1.8 L 04/27/16 04/28/16 04/28/16 23:16 06:30 06:30 WBC 16.5 H RBC 4.64 Hgb 12.8 Hct 39.8 MCV 85.7 MCHC 32.1 RDW 14.8 Plt Count 227 MPV 10.7 D Neutrophils % 90.0 H Lymphocytes % 6.7 L Monocytes % 3.2 L Eosinophils % 0.0 Basophils % 0.1 D Platelet Estimate Adequate Platelet Comment No clotting detected RBC Morphology Appears normal Sodium 140 Potassium 4.2 Chloride 100 Carbon Dioxide 24 Anion Gap 16 BUN 25 H Creatinine 0.8 Creat Clearance w eGFR > 60 POC Glucometer 339 Random Glucose 262 H D Calcium 9.3 Total Bilirubin 0.5 AST 9 L ALT 30 Alkaline Phosphatase 57 Total Protein 6.8 Albumin 3.5 Free T3 04/28/16 04/28/16 07:12 11:05 WBC RBC Hgb Hct MCV MCHC RDW Plt Count MPV Neutrophils % Lymphocytes % Monocytes % Eosinophils % Basophils % Platelet Estimate Platelet Comment RBC Morphology Sodium Potassium Chloride Carbon Dioxide Anion Gap BUN Creatinine Creat Clearance w eGFR POC Glucometer 252 226 Random Glucose Calcium Total Bilirubin AST ALT Alkaline Phosphatase Total Protein Albumin Free T3 Active Medications Generic Name Dose Route Start Last Admin Trade Name Freq PRN Reason Stop Dose Admin Albuterol Sulfate 1 amp 04/26/16 13:21 Ventolin 0.083% Nebulizer Soln - NEB Q4H PRN SHORT OF BREATH/WHEEZING Albuterol/Ipratropium 1 amp 04/25/16 12:00 04/28/16 06:50 Duoneb - NEB 1 amp QIDR COR[facility] Administration Atorvastatin Calcium 10 mg 04/27/16 22:00 04/27/16 22:38 Lipitor - PO 10 mg HS CORNELL Administration Enoxaparin Sodium 40 mg 04/25/16 10:00 04/28/16 09:37 Lovenox - SQ 40 mg DAILY CORNELL Administration Insulin Aspart 1 vial 04/26/16 11:51 04/28/16 11:30 Novolog Vial Sliding Scale - SQ 6 units ACHS CORNELL Administration Protocol Levofloxacin 750 mg 04/27/16 10:00 04/28/16 09:36 Levaquin - PO 750 mg DAILY CORNELL Administration Losartan Potassium 50 mg 04/25/16 10:00 04/28/16 09:36 Cozaar - PO 50 mg DAILY CORNELL Administration Methylprednisolone Sodium Succinate 40 mg 04/28/16 18:00 Solu-Medrol - IVPB Q8H-IV CORNELL Mometasone Furoate 1 puff 04/25/16 10:00 04/28/16 09:35 Asmanex 220mcg - IH 1 puff DAILY [facility] Administration Montelukast Sodium 10 mg 04/25/16 22:00 04/27/16 22:38 Singulair - PO 10 mg HS CORNELL Administration Pantoprazole Sodium 40 mg 04/26/16 12:00 04/28/16 09:37 Protonix - PO 40 mg DAILY CORNELL Administration ASSESSMENT/PLAN: Mrs. Kay is a 75 year old female with a past medical history significant for asthma, COPD, hypertension and Diabetes mellitus. She presented to the ED on 04/25/2016 with a productive cough, shortness of breath for 4 days and chest tightness when taking a deep breath. She reports her symptoms were gradually getting worse at home despite home inhalers. She was recently admitted to [facility] on 04/11/2016 for asthma exacerbation in COPD and discharged on 04/12/2016. She reports her symptoms are similar to her symptoms on last admission. She denies fever, chills, recent travel and sick contacts. She is a former smoker and denies any environmental exposures. She lives alone in an apartment in [place]. No pets. Pulmonary: COPD Exacerbation - acute on a chronic condition Assessment/Plan: Patient reports feeling better but still with chest congestion and dyspnea with ambulation. She is tolerating room air. As per pulmonary, steriods tapered to Solumedrol 40mg q 8, She is also on Levaquin 750mg PO daily (day Sputum culture noted to have a identified a potential fungal isolate mold v. yeast?, awaiting final ID CT scan of chest ordered to rule out cavitation ID consulted Hematology: Leukocytosis - acute Assessment/Plan: WBC elevated yesterday, trending down, likely steroid induced Blood cultures pending, UC pending She is afebrile, non toxic appearing, vital stable Cardiology: Hypertension - chronic Assessment/Plan: Hypertension controlled with Cozaar 50mg daily Echo: LV fx normal, mild MR, mild TR, no aortic stenosis, mild aorgic regurg, no pericardial eff. Chest Pain - resolved Most likely secondary to respiratory status EKG: normal sinus in the 70s, with possible left atrial enlargement Left ventricular hypertrophy, ST elevation Troponin negative x 3 Endocrine: Diabetes mellitus - chronic Assessment/Plan: Metformin on hold, started on Novolog sliding scale Capillary glucose checks, monitor closely-on a tighter control of insulin F.E.N. Fluids: tolerating adequate PO intake Electrolytes: dehydration improving - monitor Nutrition: Diabetic diet Prophylaxis: DVT: Lovenox 40mg SC, ambulation GI: Colace prn Disposition. Requires inpatient hospitalization. Discharge once clinically improved. Full Code. Visit type - Emergency Visit Emergency Visit: Yes ED Registration Date: 04/25/16 Care time: The patient presented to the Emergency Department on the above date and was hospitalized for further evaluation of their emergent condition. - New Patient This patient is new to me today: No - Critical Care Critical Care patient: No - Discharge Referral Referred to [facility] No
[2016-04-28] MEDS: ATORVASTATIN CA 10 MG TABLET (FP) PO SCH (21:45)
[2016-04-28] MEDS: MONTELUKAST NA 10 MG TABLET PO SCH (21:47)
[2016-04-29] MEDS: ZOLPIDEM TARTRATE 5 MG TABLET PO PRN (01:02)
[2016-04-29] MEDS: methylPREDNISolone NA SUCC 40 MG/1 ML VIAL IVPB SCH ×3 (01:04→18:43)
[2016-04-29] MEDS ORDERED: diphenhydrAMINE HCL 25 MG CAPSULE (FP) PO ONE (05:44)
[2016-04-29] MEDS: INSULIN SLIDING SCALE (NOVOLOG) 1 VIAL SQ SCH ×4 (06:39→21:21)
[2016-04-29] MEDS: ALBUTEROL SO4 2.5/IPRATROPIUM 0.5 INH SOL 3 ML VIAL.NEB. NEB SCH ×4 (06:40→23:20)
[2016-04-29 08:55] LABS: BASOPHIL 0.1 % (0-2.0); MCH 27.3 pg (25.7-33.7); MCHC 31.8 g/dl (32.0-36.0); MEAN CELL VOLUME 86.1 fl (80-96); MEAN PLT VOLUME 9.9 fl (7.5-11.1); NEUTROPHILS 84.8 % (42.8-82.8); PLATELET COUNT 224 K/MM3 (134-434); RDW 14.7 % (11.6-15.6); WHITE BLOOD COUNT 15.3 K/mm3 (4.0-10.0)
[2016-04-29 09:21] LABS: ALBUMIN 3.3 g/dl (3.4-5.0); ANION GAP 13 (8-16); BILIRUBIN,TOTAL 0.4 mg/dL (0.2-1.0); CALCIUM 9.1 mg/dL (8.5-10.1); CO2 26 mmol/L (21-32); CREATININE 0.9 mg/dL (0.55-1.02); GLUCOSE,RANDOM 221 mg/dL (74-106); MAGNESIUM 2.3 mg/dL (1.8-2.4); SGOT/AST 11 U/L (15-37); SGPT/ALT 33 U/L (12-78); TOT PROT 6.4 g/dl (6.4-8.2)
[2016-04-29 09:22] LABS: ALK PHOS 54 U/L (45-117)
[2016-04-29] MEDS ORDERED: PT OWN MED DRAWER 7, Y5N ONE ×2 (09:22→20:12)
[2016-04-29] MEDS: LEVOFLOXACIN 250 MG TABLET (FP) PO SCH (09:31)
[2016-04-29] MEDS: LOSARTAN POTASSIUM 50 MG TABLET (FP) PO SCH (09:31)
[2016-04-29] MEDS: ENOXAPARIN NA (PORCINE) 40 MG/0.4 ML DISP.SYRIN SQ SCH (09:31)
[2016-04-29] MEDS: PANTOPRAZOLE 40 MG TABLET (FP) PO SCH (09:31)
[2016-04-29] MEDS: MOMETASONE FUROATE 220 MCG/IH INHALER IH SCH (09:32)
--- NOTE | 2016-04-29 11:04 | PN ---
Progress Note (short form) - Note Progress Note: PULMONARY OOB TO CHAIR REMAINS WITH CONGESTED COUGH PEAK FLOW 210L/M VSS ANICTERIC B/L DIFFUSE RHONCHI/WHEEZE S1S2 BS+ NO EDEMA LABS/MEDS/NOTES/MICRO/IMAGING REVIEWED CT CHEST:NO INFILTRATE/EFFUSION OR ABSCESS CHRONIC APPEARING INTERSTITIAL CHANGES MOLD FOUND IN SPUTUM Acute COPD/Asthma Exacerbation HTN DM Osteoarthritis - continue medrol dose adjusted - inhaled bronchodilators standing and PRN - hold spiriva while pt on standing duonebs - O2 as needed - f/u cultures - glucose control while on systemic steroids - DVT prophylaxis - ID F/U R LISA PENALOZA Problem List - Problems (1) COPD exacerbation Code(s): J44.1 - CHRONIC OBSTRUCTIVE PULMONARY DISEASE W (ACUTE) EXACERBATION (2) Asthma exacerbation Code(s): J45.901 - UNSPECIFIED ASTHMA WITH (ACUTE) EXACERBATION (3) Asthma exacerbation in COPD Code(s): J44.1 - CHRONIC OBSTRUCTIVE PULMONARY DISEASE W (ACUTE) EXACERBATION J45.901 - UNSPECIFIED ASTHMA WITH (ACUTE) EXACERBATION (4) Diabetes Code(s): E11.9 - TYPE 2 DIABETES MELLITUS WITHOUT COMPLICATIONS (5) Hypertension Code(s): I10 - ESSENTIAL (PRIMARY) HYPERTENSION (6) Osteoarthritis Code(s): M19.90 - UNSPECIFIED OSTEOARTHRITIS, UNSPECIFIED SITE
--- NOTE | 2016-04-29 14:59 | PN ---
Progress Note, Physician History of Present Illness: patient doing well no complaints had ct scan done - Current Medication List Current Medications: Active Medications Albuterol Sulfate (Ventolin 0.083% Nebulizer Soln -) 1 amp NEB Q4H PRN PRN Reason: SHORT OF BREATH/WHEEZING Albuterol/Ipratropium (Duoneb -) 1 amp NEB QIDR [facility] Last Admin: 04/29/16 11:09 Dose: 1 amp Atorvastatin Calcium (Lipitor -) 10 mg PO HS [facility] Last Admin: 04/28/16 21:45 Dose: 10 mg Enoxaparin Sodium (Lovenox -) 40 mg SQ DAILY [facility] Last Admin: 04/29/16 09:31 Dose: 40 mg Insulin Aspart (Novolog Vial Sliding Scale -) 1 vial SQ ACHS [facility] PRN Reason: Protocol Last Admin: 04/29/16 12:18 Dose: 8 units Levofloxacin (Levaquin -) 750 mg PO DAILY [facility] Last Admin: 04/29/16 09:31 Dose: 750 mg Losartan Potassium (Cozaar -) 50 mg PO DAILY [facility] Last Admin: 04/29/16 09:31 Dose: 50 mg Methylprednisolone Sodium Succinate (Solu-Medrol -) 40 mg IVPB Q8H-IV [facility] Last Admin: 04/29/16 09:32 Dose: 40 mg Mometasone Furoate (Asmanex 220mcg -) 1 puff IH DAILY [facility] Last Admin: 04/29/16 09:32 Dose: 1 puff Montelukast Sodium (Singulair -) 10 mg PO HS [facility] Last Admin: 04/28/16 21:47 Dose: 10 mg Pantoprazole Sodium (Protonix -) 40 mg PO DAILY [facility] Last Admin: 04/29/16 09:31 Dose: 40 mg Zolpidem Tartrate (Ambien -) 5 mg PO HS PRN Last Admin: 04/29/16 01:02 Dose: 5 mg - Objective Vital Signs: Vital Signs Temperature 98.2 F 04/29/16 12:24 Pulse Rate 84 04/29/16 12:24 Respiratory Rate 18 04/29/16 12:24 Blood Pressure 139/72 04/29/16 12:24 O2 Sat by Pulse Oximetry (%) 98 04/29/16 09:56 Constitutional: Yes: No Distress, Calm Cardiovascular: Yes: Regular Rate and Rhythm Respiratory: Yes: Regular, Poor Air Entry Gastrointestinal: Yes: Normal Bowel Sounds, Soft Musculoskeletal: Yes: WNL Extremities: Yes: WNL Neurological: Yes: Alert, Oriented Labs: CBC, BMP 04/29/16 07:30 04/29/16 07:30 INR, PTT INR 0.88 (0.82-1.09) 04/25/16 05:40 Assessment/Plan patient evaluated and seen patient has been on chronic steroids and now she is coming in with copd exacerebration Hypertension Chest Pain Diabetes mellitus fungal lung infection plan ct scan images seen await for the results await for cx diagnosis
--- NOTE | 2016-04-29 15:44 | PN ---
Physical Exam: SUBJECTIVE: Patient seen and examined. Her daughter and son in law at the bedside. Pt states she walked a few laps up and down the pod last night with minimal shortness of breath. Provided her daughter with an update including microbio sputum culture and CT scan results. Assured family, we will follow up and treat patient accordingly. OBJECTIVE: GENERAL: Awake, alert, and fully oriented, respiratory distress improving but noted to still have wheezing and shortness of breath with ambulation but is able to ambulate further without oxygen, tolerating room air. HEAD: Normal with no signs of trauma. EYES: Pupils equal, round and reactive to light, extraocular movements intact, sclera anicteric, conjunctiva clear. No lid lag. EARS, NOSE, THROAT: Ears normal, nares patent, oropharynx clear without exudates. Moist mucous membranes. NECK: Normal range of motion, supple without lymphadenopathy, JVD, or masses. LUNGS: Bilateral lungs with scattered expiratory wheezing, congestion improving HEART: Regular rate and rhythm ABDOMEN: Soft, nontender, not distended, normoactive bowel sounds MUSCULOSKELETAL: Normal range of motion at all joints. No bony deformities or tenderness. No CVA tenderness. UPPER EXTREMITIES: 2+ pulses, warm, well-perfused. LOWER EXTREMITIES: 2+ pulses, warm, well-perfused. No calf tenderness. No peripheral edema. NEUROLOGICAL: Normal speech. PSYCHIATRIC: Cooperative. Good eye contact. Appropriate mood and affect. SKIN: Warm, dry, normal turgor, no rashes or lesions noted. Vital Signs Period Temp Pulse Resp BP Sys/Stallings Pulse Ox Last 24 Hr 97.6 F-98.4 F 73-84 14-20 128-178/64-95 95-98 Laboratory Results - last 24 hr 04/28/16 04/28/16 04/29/16 16:51 21:43 06:38 WBC RBC Hgb Hct MCV MCHC RDW Plt Count MPV Neutrophils % Lymphocytes % Monocytes % Eosinophils % Basophils % Sodium Potassium Chloride Carbon Dioxide Anion Gap BUN Creatinine Creat Clearance w eGFR POC Glucometer 185 342 230 Random Glucose Calcium Magnesium Total Bilirubin AST ALT Alkaline Phosphatase Total Protein Albumin 04/29/16 04/29/16 04/29/16 07:30 07:30 12:15 WBC 15.3 H RBC 4.64 Hgb 12.7 Hct 39.9 MCV 86.1 MCHC 31.8 L RDW 14.7 Plt Count 224 MPV 9.9 Neutrophils % 84.8 H Lymphocytes % 8.0 Monocytes % 7.1 D Eosinophils % 0.0 Basophils % 0.1 Sodium 138 Potassium 4.0 Chloride 99 Carbon Dioxide 26 Anion Gap 13 BUN 25 H Creatinine 0.9 Creat Clearance w eGFR > 60 POC Glucometer 276 Random Glucose 221 H Calcium 9.1 Magnesium 2.3 Total Bilirubin 0.4 AST 11 L D ALT 33 Alkaline Phosphatase 54 Total Protein 6.4 Albumin 3.3 L Active Medications Generic Name Dose Route Start Last Admin Trade Name Freq PRN Reason Stop Dose Admin Albuterol Sulfate 1 amp 04/26/16 13:21 Ventolin 0.083% Nebulizer Soln - NEB Q4H PRN SHORT OF BREATH/WHEEZING Albuterol/Ipratropium 1 amp 04/25/16 12:00 04/29/16 11:09 Duoneb - NEB 1 amp QIDR CORNELL Administration Atorvastatin Calcium 10 mg 04/27/16 22:00 04/28/16 21:45 Lipitor - PO 10 mg HS CORNELL Administration Enoxaparin Sodium 40 mg 04/25/16 10:00 04/29/16 09:31 Lovenox - SQ 40 mg DAILY CORNELL Administration Insulin Aspart 1 vial 04/26/16 11:51 04/29/16 12:18 Novolog Vial Sliding Scale - SQ 8 units ACHS CORNELL Administration Protocol Levofloxacin 750 mg 04/27/16 10:00 04/29/16 09:31 Levaquin - PO 750 mg DAILY CORNELL Administration Losartan Potassium 50 mg 04/25/16 10:00 04/29/16 09:31 Cozaar - PO 50 mg DAILY CORNELL Administration Methylprednisolone Sodium Succinate 40 mg 04/28/16 18:00 04/29/16 09:32 Solu-Medrol - IVPB 40 mg Q8H-IV CORNELL Administration Mometasone Furoate 1 puff 04/25/16 10:00 04/29/16 09:32 Asmanex 220mcg - IH 1 puff DAILY CORNELL Administration Montelukast Sodium 10 mg 04/25/16 22:00 04/28/16 21:47 Singulair - PO 10 mg HS CORNELL Administration Pantoprazole Sodium 40 mg 04/26/16 12:00 04/29/16 09:31 Protonix - PO 40 mg DAILY CORNELL Administration Zolpidem Tartrate 5 mg 04/29/16 00:54 04/29/16 01:02 Ambien - PO 5 mg HS PRN Administration ASSESSMENT/PLAN: Mrs. Kay is a 75 year old active female with a past medical history significant for asthma, COPD, hypertension and Diabetes mellitus. She presented to the ED on 04/25/2016 with a productive cough, shortness of breath for 4 days and chest tightness when taking a deep breath. She reports her symptoms were gradually getting worse at home despite home inhalers. She was recently admitted to [facility] on 04/11/2016 for asthma exacerbation in COPD and discharged on 04/12/2016. She reports her symptoms are similar to her symptoms on last admission. She denies fever, chills, recent travel and sick contacts. She is a former smoker and denies any environmental exposures. She lives alone in an apartment in [place]. No pets. Pulmonary: COPD Exacerbation - acute on a chronic condition Assessment/Plan: Patient reports feeling better, improving, able to ambulate with minimal discomfort. She is tolerating room air. As per pulmonary, steroids tapered to Solumedrol 40mg q 8, She is also on Levaquin 750mg PO daily Sputum culture noted to have a identified a potential fungal isolate mold v. yeast?, awaiting final ID CT scan of chest negative for cavitation, findings shared with patient and daughter ID following Hematology: Leukocytosis - acute Assessment/Plan: WBC elevated but trending down, likely steroid induced Blood cultures pending, UC pending She is afebrile, non toxic appearing, vitals stable Cardiology: Hypertension - chronic Assessment/Plan: Hypertension controlled with Cozaar 50mg daily Echo: LV fx normal, mild MR, mild TR, no aortic stenosis, mild aorgic regurg, no pericardial eff. Chest Pain - resolved Most likely secondary to respiratory status EKG: normal sinus in the 70s, with possible left atrial enlargement Left ventricular hypertrophy, ST elevation Troponin negative x 3 Endocrine: Diabetes mellitus - chronic Assessment/Plan: Metformin on hold, started on Novolog sliding scale Capillary glucose checks, monitor closely-on a tighter control of insulin F.E.N. Fluids: tolerating adequate PO intake Electrolytes: dehydration improving - monitor Nutrition: Diabetic diet Prophylaxis: DVT: Lovenox 40mg SC, ambulation GI: Colace prn Disposition. Requires inpatient hospitalization. Discharge once clinically improved. Full Code. Visit type - Emergency Visit Emergency Visit: Yes ED Registration Date: 04/25/16 Care time: The patient presented to the Emergency Department on the above date and was hospitalized for further evaluation of their emergent condition. - New Patient This patient is new to me today: No - Critical Care Critical Care patient: No - Discharge Referral Referred to [facility] No
[2016-04-29] MEDS: ATORVASTATIN CA 10 MG TABLET (FP) PO SCH (21:21)
[2016-04-29] MEDS: MONTELUKAST NA 10 MG TABLET PO SCH (21:22)
[2016-04-30] MEDS: ZOLPIDEM TARTRATE 5 MG TABLET PO PRN (01:23)
[2016-04-30] MEDS: methylPREDNISolone NA SUCC 40 MG/1 ML VIAL IVPB SCH ×3 (01:26→17:20)
[2016-04-30] MEDS: INSULIN SLIDING SCALE (NOVOLOG) 1 VIAL SQ SCH ×4 (06:25→22:21)
[2016-04-30] MEDS: ALBUTEROL SO4 2.5/IPRATROPIUM 0.5 INH SOL 3 ML VIAL.NEB. NEB SCH ×3 (06:45→17:42)
[2016-04-30 07:45] LABS: MCH 27.8 pg (25.7-33.7); MCHC 32.7 g/dl (32.0-36.0); MEAN CELL VOLUME 85.1 fl (80-96); MEAN PLT VOLUME 9.8 fl (7.5-11.1); NEUTROPHILS 84.8 % (42.8-82.8); PLATELET COUNT 211 K/MM3 (134-434); WHITE BLOOD COUNT 11.8 K/mm3 (4.0-10.0)
[2016-04-30 08:08] LABS: ANION GAP 7 (8-16); CALCIUM 8.6 mg/dL (8.5-10.1); CO2 29 mmol/L (21-32); CREATININE 0.8 mg/dL (0.55-1.02); GLUCOSE,RANDOM 251 mg/dL (74-106); SGOT/AST 9 U/L (15-37); SGPT/ALT 29 U/L (12-78)
[2016-04-30 08:11] LABS: ALK PHOS 47 U/L (45-117); BILIRUBIN,TOTAL 0.6 mg/dL (0.2-1.0); TOT PROT 5.8 g/dl (6.4-8.2)
[2016-04-30] MEDS ORDERED: PT OWN MED DRAWER 7, Y5N ONE ×2 (08:37→20:01)
[2016-04-30] MEDS: MOMETASONE FUROATE 220 MCG/IH INHALER IH SCH (09:20)
[2016-04-30] MEDS: LEVOFLOXACIN 250 MG TABLET (FP) PO SCH (09:20)
[2016-04-30] MEDS: PANTOPRAZOLE 40 MG TABLET (FP) PO SCH (09:20)
[2016-04-30] MEDS: ENOXAPARIN NA (PORCINE) 40 MG/0.4 ML DISP.SYRIN SQ SCH (09:20)
[2016-04-30] MEDS: LOSARTAN POTASSIUM 50 MG TABLET (FP) PO SCH (09:20)
--- NOTE | 2016-04-30 12:46 | PN ---
Progress Note (short form) - Note Progress Note: PULMONARY OOB TO CHAIR REMAINS WITH CONGESTED COUGH PEAK FLOW 250L/M VSS ANICTERIC B/L DIFFUSE RHONCHI/WHEEZE S1S2 BS+ NO EDEMA LABS/MEDS/NOTES/MICRO/IMAGING REVIEWED CT CHEST:NO INFILTRATE/EFFUSION OR ABSCESS CHRONIC APPEARING INTERSTITIAL CHANGES MOLD FOUND IN SPUTUM Acute COPD/Asthma Exacerbation HTN DM Osteoarthritis - continue medrol dose adjusted - inhaled bronchodilators standing and PRN - hold spiriva while pt on standing duonebs - O2 as needed - f/u cultures - glucose control while on systemic steroids - DVT prophylaxis - ID F/U R LISA PENALOZA Problem List - Problems (1) COPD exacerbation Code(s): J44.1 - CHRONIC OBSTRUCTIVE PULMONARY DISEASE W (ACUTE) EXACERBATION (2) Asthma exacerbation Code(s): J45.901 - UNSPECIFIED ASTHMA WITH (ACUTE) EXACERBATION (3) Asthma exacerbation in COPD Code(s): J44.1 - CHRONIC OBSTRUCTIVE PULMONARY DISEASE W (ACUTE) EXACERBATION J45.901 - UNSPECIFIED ASTHMA WITH (ACUTE) EXACERBATION (4) Diabetes Code(s): E11.9 - TYPE 2 DIABETES MELLITUS WITHOUT COMPLICATIONS (5) Hypertension Code(s): I10 - ESSENTIAL (PRIMARY) HYPERTENSION (6) Osteoarthritis Code(s): M19.90 - UNSPECIFIED OSTEOARTHRITIS, UNSPECIFIED SITE
--- NOTE | 2016-04-30 16:38 | PN ---
Physical Exam: SUBJECTIVE: Patient seen and examined. Went to see patient at 0830a but she was asleep, no oxygen and appeared comfortable. Returned at 0930 and pt was awake, alert, sitting up in bed in no acute distress. She states she feels better, is able to walk up and down the nursing pod with minimal wheezing and dyspnea. She knows she is still not at her baseline, but she notes that she has improved since admission. She is concerned about the findings of the sputum culture. I assured her that I am monitoring the culture for a final read. Encouraged her to increase her fluid intake (BUN 24) and added water bottles to her meals. OBJECTIVE: GENERAL: Awake, alert, and fully oriented, still congested, but much overall improved, tolerating room air. HEAD: Normal with no signs of trauma. EYES: Pupils equal, round and reactive to light, extraocular movements intact, sclera anicteric, conjunctiva clear. No lid lag. EARS, NOSE, THROAT: Ears normal, nares patent, oropharynx clear without exudates. Moist mucous membranes. NECK: Normal range of motion, supple without lymphadenopathy, JVD, or masses. LUNGS: Bilateral lungs with scattered expiratory wheezing, congestion improving , much more improved today HEART: Regular rate and rhythm ABDOMEN: Soft, nontender, not distended, normoactive bowel sounds UPPER EXTREMITIES: 2+ pulses, warm, well-perfused. LOWER EXTREMITIES: 2+ pulses, warm, well-perfused. No calf tenderness. No peripheral edema. NEUROLOGICAL: Normal speech. PSYCHIATRIC: Cooperative. Good eye contact. Appropriate mood and affect. SKIN: Warm, dry, normal turgor, no rashes or lesions noted. Vital Signs Period Temp Pulse Resp BP Sys/Stallings Pulse Ox Last 24 Hr 98.6 F 84 18 126/73 Active Medications Generic Name Dose Route Start Last Admin Trade Name Freq PRN Reason Stop Dose Admin Albuterol Sulfate 1 amp 04/26/16 13:21 Ventolin 0.083% Nebulizer Soln - NEB Q4H PRN SHORT OF BREATH/WHEEZING Albuterol/Ipratropium 1 amp 04/25/16 12:00 04/30/16 11:11 Duoneb - NEB 1 amp QIDR CORNELL Administration Atorvastatin Calcium 10 mg 04/27/16 22:00 04/29/16 21:21 Lipitor - PO 10 mg HS CORNELL Administration Enoxaparin Sodium 40 mg 04/25/16 10:00 04/30/16 09:20 Lovenox - SQ 40 mg DAILY CORNELL Administration Insulin Aspart 1 vial 04/30/16 10:48 04/30/16 11:46 Novolog Vial Sliding Scale - SQ 6 units ACHS CORNELL Administration Protocol Levofloxacin 750 mg 04/27/16 10:00 04/30/16 09:20 Levaquin - PO 750 mg DAILY CORNELL Administration Losartan Potassium 50 mg 04/25/16 10:00 04/30/16 09:20 Cozaar - PO 50 mg DAILY CORNELL Administration Methylprednisolone Sodium Succinate 40 mg 04/28/16 18:00 04/30/16 09:20 Solu-Medrol - IVPB 40 mg Q8H-IV CORNELL Administration Mometasone Furoate 1 puff 04/25/16 10:00 04/30/16 09:20 Asmanex 220mcg - IH 1 puff DAILY CORNELL Administration Montelukast Sodium 10 mg 04/25/16 22:00 04/29/16 21:22 Singulair - PO 10 mg HS CORNELL Administration Pantoprazole Sodium 40 mg 04/26/16 12:00 04/30/16 09:20 Protonix - PO 40 mg DAILY CORNELL Administration Zolpidem Tartrate 5 mg 04/29/16 00:54 04/30/16 01:23 Ambien - PO 5 mg HS PRN Administration ASSESSMENT/PLAN: Mrs. Kay is a 75 year old active female with a past medical history significant for asthma, COPD, hypertension and Diabetes mellitus. She presented to the ED on 04/25/2016 with a productive cough, shortness of breath for 4 days and chest tightness when taking a deep breath. She reports her symptoms were gradually getting worse at home despite home inhalers. She was recently admitted to [facility] on 04/11/2016 for asthma exacerbation in COPD and discharged on 04/12/2016. She reports her symptoms are similar to her symptoms on last admission. She denies fever, chills, recent travel and sick contacts. She is a former smoker and denies any environmental exposures. She lives alone in an apartment in [place]. No pets. patient reported to me today that her neighbors have mold in their apartment. Advised her to obtain a small dehumidifier and air purifer. Pulmonary: COPD Exacerbation - acute on a chronic condition Assessment/Plan: Patient reports feeling better, improving, able to ambulate with minimal discomfort. She is tolerating room air and is able to ambulate with minimal dyspnea As per pulmonary, steroids to be tapered She is also on Levaquin 750mg PO daily (day #6 - received 2 IV doses on admission, then PO started on 04/27) - will stop Levaquin after tomorrow's dose. Sputum culture noted to have a identified a potential fungal isolate mold v. yeast?, awaiting final ID CT scan of chest negative for cavitation, findings shared with patient and daughter ID following Hematology: Leukocytosis - acute Assessment/Plan: WBC elevated but trending down, likely steroid induced Blood cultures pending, UC negative She is afebrile, non toxic appearing, vitals stable Cardiology: Hypertension - chronic Assessment/Plan: Hypertension controlled with Cozaar 50mg daily Echo: LV fx normal, mild MR, mild TR, no aortic stenosis, mild aorgic regurg, no pericardial eff. Chest Pain - resolved Most likely secondary to respiratory status EKG: normal sinus in the 70s, with possible left atrial enlargement Left ventricular hypertrophy, ST elevation Troponin negative x 3 Endocrine: Diabetes mellitus - chronic Assessment/Plan: Metformin on hold, started on Novolog sliding scale Capillary glucose checks, monitor closely-again adjusted the insulin coverage secondary to elevated BGMs. F.E.N. Fluids: tolerating adequate PO intake Electrolytes: dehydration improving - monitor Nutrition: Diabetic diet Prophylaxis: DVT: Lovenox 40mg SC, ambulation GI: Colace prn Disposition. Requires inpatient hospitalization. Needs to be tapered off the steroids and needs final ID of sputum. I anticipate she can be discharged tomorrow. Full Code. Visit type - Emergency Visit Emergency Visit: Yes ED Registration Date: 04/30/16 Care time: The patient presented to the Emergency Department on the above date and was hospitalized for further evaluation of their emergent condition. - New Patient This patient is new to me today: No - Critical Care Critical Care patient: No - Discharge Referral Referred to [facility] Med P.C.: No
[2016-04-30] MEDS ORDERED: diphenhydrAMINE HCL 25 MG CAPSULE (FP) PO PRN (16:50)
[2016-04-30] MEDS ORDERED: INSULIN DETEMIR 100 UNITS/ML MDV SQ SCH (22:00)
[2016-04-30] MEDS: ATORVASTATIN CA 10 MG TABLET (FP) PO SCH (22:16)
[2016-04-30] MEDS: MONTELUKAST NA 10 MG TABLET PO SCH (22:17)
[2016-04-30] MEDS ORDERED: INSULIN (NOVOLOG) ASPART 100 UNITS/ML 10ML VIAL ONE (22:20)
[2016-05-01] MEDS: methylPREDNISolone NA SUCC 40 MG/1 ML VIAL IVPB SCH ×2 (02:33→10:22)
[2016-05-01] MEDS: ZOLPIDEM TARTRATE 5 MG TABLET PO PRN (02:33)
[2016-05-01] MEDS: ALBUTEROL SO4 2.5/IPRATROPIUM 0.5 INH SOL 3 ML VIAL.NEB. NEB SCH ×3 (06:15→12:26)
[2016-05-01 06:30] LABS: MCH 26.8 pg (25.7-33.7); MCHC 31.3 g/dl (32.0-36.0); MEAN CELL VOLUME 85.4 fl (80-96); MEAN PLT VOLUME 10.1 fl (7.5-11.1); PLATELET COUNT 243 K/MM3 (134-434); RDW 14.6 % (11.6-15.6); WHITE BLOOD COUNT 12.9 K/mm3 (4.0-10.0)
[2016-05-01] MEDS: INSULIN SLIDING SCALE (NOVOLOG) 1 VIAL SQ SCH ×2 (06:31→11:36)
[2016-05-01 07:09] LABS: ALBUMIN 3.1 g/dl (3.4-5.0); ALK PHOS 49 U/L (45-117); ANION GAP 10 (8-16); BILIRUBIN,TOTAL 0.5 mg/dL (0.2-1.0); CALCIUM 9.1 mg/dL (8.5-10.1); CO2 30 mmol/L (21-32); CREATININE 0.8 mg/dL (0.55-1.02); GLUCOSE,RANDOM 223 mg/dL (74-106); SGOT/AST 15 U/L (15-37); SGPT/ALT 34 U/L (12-78); TOT PROT 5.8 g/dl (6.4-8.2)
[2016-05-01 08:18] LABS: METAMYELOCYTE 1 % (0-2)
[2016-05-01] MEDS: MOMETASONE FUROATE 220 MCG/IH INHALER IH SCH (10:21)
[2016-05-01] MEDS: PANTOPRAZOLE 40 MG TABLET (FP) PO SCH (10:22)
[2016-05-01] MEDS: ENOXAPARIN NA (PORCINE) 40 MG/0.4 ML DISP.SYRIN SQ SCH (10:22)
[2016-05-01] MEDS: LEVOFLOXACIN 250 MG TABLET (FP) PO SCH (10:22)
[2016-05-01] MEDS: LOSARTAN POTASSIUM 50 MG TABLET (FP) PO SCH (10:25)
[2016-05-01 10:46] VITALS: BP 140/76; PULSE 86; TEMP 98.8
--- NOTE | 2016-05-01 11:13 | DS ---
Physical Exam: SUBJECTIVE: Patient seen and examined. She states she feels well, denies chest pain or dyspnea on exertion. OBJECTIVE: GENERAL: Awake, alert, and fully oriented, still congested, but much overall improved, tolerating room air. HEAD: Normal with no signs of trauma. EYES: Pupils equal, round and reactive to light, extraocular movements intact, sclera anicteric, conjunctiva clear. No lid lag. EARS, NOSE, THROAT: Ears normal, nares patent, oropharynx clear without exudates. Moist mucous membranes. NECK: Normal range of motion, supple without lymphadenopathy, JVD, or masses. LUNGS: Bilateral lungs with scattered expiratory wheezing, congestion improving , much more improved today HEART: Regular rate and rhythm ABDOMEN: Soft, nontender, not distended, normoactive bowel sounds UPPER EXTREMITIES: 2+ pulses, warm, well-perfused. LOWER EXTREMITIES: 2+ pulses, warm, well-perfused. No calf tenderness. No peripheral edema. NEUROLOGICAL: Normal speech. PSYCHIATRIC: Cooperative. Good eye contact. Appropriate mood and affect. SKIN: Warm, dry, normal turgor, no rashes or lesions noted. Vital Signs Period Temp Pulse Resp BP Sys/Stallings Pulse Ox Last 24 Hr 98.4 F-98.8 F 72-86 18-18 123-140/64-76 98 PHYSICAL EXAM LABS Laboratory Results - last 24 hr 04/30/16 04/30/16 05/01/16 17:14 21:23 05:35 WBC 12.9 H RBC 4.58 Hgb 12.2 Hct 39.1 MCV 85.4 MCHC 31.3 L RDW 14.6 Plt Count 243 MPV 10.1 Neutrophils % 87.0 H Lymphocytes % 4.0 L D Monocytes % 6.0 Metamyelocytes 1 Myelocytes 2 Differential Comment Manual diff done Sodium Potassium Chloride Carbon Dioxide Anion Gap BUN Creatinine Creat Clearance w eGFR POC Glucometer 336 250 Random Glucose Calcium Total Bilirubin AST ALT Alkaline Phosphatase Total Protein Albumin 05/01/16 05/01/16 05:35 06:11 WBC RBC Hgb Hct MCV MCHC RDW Plt Count MPV Neutrophils % Lymphocytes % Monocytes % Metamyelocytes Myelocytes Differential Comment Sodium 138 Potassium 4.3 Chloride 98 Carbon Dioxide 30 Anion Gap 10 BUN 22 H Creatinine 0.8 Creat Clearance w eGFR > 60 POC Glucometer 218 Random Glucose 223 H Calcium 9.1 Total Bilirubin 0.5 AST 15 D ALT 34 Alkaline Phosphatase 49 Total Protein 5.8 L Albumin 3.1 L HOSPITAL COURSE: Date of Admission:04/30/16 Date of Discharge: 05/01/16 Mrs. Kay is a 75 year old active female with a past medical history significant for asthma, COPD, hypertension and Diabetes mellitus. She presented to the ED on 04/25/2016 with a productive cough, shortness of breath for 4 days and chest tightness when taking a deep breath. She reports her symptoms were gradually getting worse at home despite home inhalers. She was recently admitted to [facility] [place] on 04/11/2016 for asthma exacerbation in COPD and discharged on 04/12/2016. She reports her symptoms are similar to her symptoms on last admission. She denies fever, chills, recent travel and sick contacts. She is a former smoker and denies any environmental exposures. She lives alone in an apartment in [place]. No pets. patient reported to me today that her neighbors have mold in their apartment. Advised her to obtain a small dehumidifier and air purifer. Pulmonary: COPD Exacerbation - improved, stable for d/c with continuation of Prednisone with a slow taper Assessment/Plan: Patient reports feeling better, improving, able to ambulate with minimal discomfort. She is tolerating room air and is able to ambulate with minimal dyspnea Finished full course of Levaquin PO, today is day #7 Sputum culture noted to have a identified a potential fungal isolate mold [place]. evelyn. Called micro, sputum to be sent out CT scan of chest negative for cavitation, findings shared with patient and daughter Hematology: Leukocytosis - improved Assessment/Plan: WBC elevated but trending down, likely steroid induced She is afebrile, non toxic appearing, vitals stable Cardiology: Hypertension - chronic Assessment/Plan: Hypertension controlled with Cozaar 50mg daily Echo: LV fx normal, mild MR, mild TR, no aortic stenosis, mild aorgic regurg, no pericardial eff. Chest Pain - resolved Most likely secondary to respiratory status EKG: normal sinus in the 70s, with possible left atrial enlargement Left ventricular hypertrophy, ST elevation Troponin negative x 3 Endocrine: Diabetes mellitus - chronic Assessment/Plan: Can start home Metformin. Pt to monitor glucs at home. F.E.N. Fluids: tolerating adequate PO intake Electrolytes: dehydration improving - monitor Nutrition: Diabetic diet Stable for d/c home today. Full Code. Minutes to complete discharge: 40 Discharge Summary Reason For Visit: COPD EXACEBATION Current Active Problems COPD exacerbation (Acute) Diastolic CHF (Acute) Hypercholesteremia (Acute) Osteoporosis (Acute) Condition: Stable - Instructions Diet, Activity, Other Instructions: Please continue the Prednisone Taper as follows: Prednisone pills at 10mg each: Prednisone 80mg - 8 pills on 05/02/2015 DAILY Prednisone 80mg - 8 pills on 05/03/2015 DAILY Prednisone 60mg - 6 pills on 05/04/2015 DAILY Prednisone 60mg - 6 pills on 05/05/2015 DAILY Prednisone 40mg - 4 pills on 05/06/2015 DAILY Prednisone 40mg - 4 pills on 05/07/2015 DAILY Prednisone 20mg - 2 pills on 05/08/2015 DAILY Prednisone 20mg - 2 pills on 05/09/2015 DAILY Prednisone 10mg - 1 pill on 05/10/2015 DAILY Then stop prednisone. Your Sputum culture has been sent out to [facility]. We will fax the results to your doctor once we receive them. Please follow up with Dr. Perea and your PCP within one week of discharge. Keira Nicole NP [facility] Medical office [phone] Referrals: Marquise Perea MD [Staff Physician] - Yeni Duque MD [Primary Care Provider] - Disposition: HOME - Home Medications Comprehensive Discharge Medication List: Ambulatory Orders Arformoterol Tartrate [Brovana] 15 mcg IH DAILY 01/02/15 Losartan Potassium 50 mg PO DAILY 01/02/15 Metformin HCl 500 mg PO TID PRN 01/02/15 Mometasone Furoate [Asmanex 220Mcg -] 1 inh IH DAILY 01/02/15 Tiotropium [place] [Spiriva] 1 inh PO DAILY 01/02/15 Albuterol 0.083% Nebulizer [place] [Ventolin 0.083% Nebulizer Soln -] 1 neb NEB Q4H PRN #1 box 10/12/15 Prednisone 40 mg PO ASDIR 04/25/16 This patient is new to me today: No Emergency Visit: Yes ED Registration Date: 04/30/16 Care time: The patient presented to the Emergency Department on the above date and was hospitalized for further evaluation of their emergent condition. Critical Care patient: No - Discharge Referral Referred to [facility] Med [facility].C.: No
[2016-05-01] MEDS ORDERED: ALBUTEROL SO4 0.083% IH SOL 2.5 MG/3 ML VIAL.NEB. NEB ONE (11:40)
--- NOTE | 2016-05-01 12:26 | PN ---
[id number]. History of Present Illness: The patient is a 75 year old black female with significant past medical history of CAD ( coronary angiogram several years ago at [facility], and ?2016 coronary angiogram; Nonobstructive CAD), hypertension, diabetes, COPD/asthma, diastolic CHF, OSAS, osteoporosis, carotid artery disease (50-69% bilateral stenosis on US), who presents to the ED with 4 days of SOB. Patient states she developed SOB with associated chest tightness and productive cough. Initially she had productive cough with green sputum, but the sputum is now whitish and clear. She is currently steroid dependent and is on 60mg of prednisone. Patient denies any sick contacts or recent travels. Until a week ago, she had been walking up to 10 miles daily (5 miles on gym equipment; 5 miles outdoors) without signficant dyspnea or chest discomfort. The patient denies fever, chills, chest pain, and palpitations. The patient denies abdominal pain, nausea, vomiting, and diarrhea. Allergies: Iodinated Contrast Media, tetracycline Social History: Denies alcohol, tobacco, and drug use. Past Surgical History: Breast Biopsy, Tubal Ligation PCP: Dr. Yeni Canas Process Consultant: Dr. Marquise Perea Recruitment Internship: Dr. Cevallos - Current Medication List Current Medications: Active Medications Albuterol Sulfate (Ventolin 0.083% Nebulizer Soln -) 1 amp NEB Q4H PRN PRN Reason: SHORT OF BREATH/WHEEZING Albuterol/Ipratropium (Duoneb -) 1 amp NEB QIDR [facility] Last Admin: 05/01/16 06:15 Dose: 1 amp Atorvastatin Calcium (Lipitor -) 10 mg PO HS [facility] Last Admin: 04/30/16 22:16 Dose: 10 mg Diphenhydramine HCl (Benadryl -) 25 mg PO Q6H PRN PRN Reason: FOR ITCHING Last Admin: 04/30/16 22:18 Dose: 25 mg Enoxaparin Sodium (Lovenox -) 40 mg SQ DAILY [facility] Last Admin: 05/01/16 10:22 Dose: 40 mg Insulin Aspart (Novolog Vial Sliding Scale -) 1 vial SQ ACHS [facility] PRN Reason: Protocol Last Admin: 05/01/16 11:36 Dose: 4 units Insulin Detemir (Levemir Vial) 5 units SQ HS [facility] Last Admin: 04/30/16 22:15 Dose: 5 units Levofloxacin (Levaquin -) 750 mg PO DAILY [facility] Last Admin: 05/01/16 10:22 Dose: 750 mg Losartan Potassium (Cozaar -) 50 mg PO DAILY [facility] Last Admin: 05/01/16 10:25 Dose: 50 mg Methylprednisolone Sodium Succinate (Solu-Medrol -) 40 mg IVPB Q8H-IV [facility] Last Admin: 05/01/16 10:22 Dose: 40 mg Mometasone Furoate (Asmanex 220mcg -) 1 puff IH DAILY [facility] Last Admin: 05/01/16 10:21 Dose: 1 puff Montelukast Sodium (Singulair -) 10 mg PO HS [facility] Last Admin: 04/30/16 22:17 Dose: 10 mg Pantoprazole Sodium (Protonix -) 40 mg PO DAILY [facility] Last Admin: 05/01/16 10:22 Dose: 40 mg Zolpidem Tartrate (Ambien -) 5 mg PO HS PRN Last Admin: 05/01/16 02:33 Dose: 5 mg - Objective Vital Signs: Vital Signs Temperature 98.8 F 05/01/16 10:00 Pulse Rate 86 05/01/16 10:00 Respiratory Rate 18 05/01/16 10:00 Blood Pressure 140/76 05/01/16 10:00 O2 Sat by Pulse Oximetry (%) 97 05/01/16 09:00 Constitutional: Yes: Calm Eyes: Yes: WNL HENT: Yes: WNL Neck: Yes: WNL Cardiovascular: Yes: WNL Respiratory: Yes: Regular Gastrointestinal: Yes: WNL ...Rectal Exam: Yes: Deferred Genitourinary: No: Anuria Breast(s): Yes: WNL Musculoskeletal: Yes: Joint Stiffness Extremities: Yes: WNL Edema: No Peripheral Pulses WNL: Yes Integumentary: Yes: WNL Neurological: Yes: Alert, Oriented Psychiatric: Yes: Alert, Oriented Labs: CBC, BMP 05/01/16 05:35 05/01/16 05:35 INR, PTT INR 0.88 (0.82-1.09) 04/25/16 05:40 - ....Imaging Chest X-ray: Image Reviewed (no acute pathology) EKG: Image Reviewed (NSR) Problem List - Problems (1) Diabetes Assessment/Plan: HGBA1C 7.1. F/u with medications, dietary guidelines, weight loss. Code(s): E11.9 - TYPE 2 DIABETES MELLITUS WITHOUT COMPLICATIONS (2) Asthma exacerbation in COPD Assessment/Plan: f/u with grain merchandising manager; on steroids and bronchodilators, antibiotics. Code(s): J44.1 - CHRONIC OBSTRUCTIVE PULMONARY DISEASE W (ACUTE) EXACERBATION J45.901 - UNSPECIFIED ASTHMA WITH (ACUTE) EXACERBATION (3) Hypertension Assessment/Plan: on losartan; f/u BP serially (pt says she urinates frequently; resists starting diuretic). Weight loss and dietary modification, including using less salt, are important, and were discussed. Code(s): I10 - ESSENTIAL (PRIMARY) HYPERTENSION (4) Weakness Code(s): R53.1 - WEAKNESS (5) Osteoporosis Code(s): M81.0 - AGE-RELATED OSTEOPOROSIS W/O CURRENT PATHOLOGICAL FRACTURE (6) Diastolic CHF Assessment/Plan: ECHO: normal LVEF; abnormal diastolic compliance; mild MR, TR, IL, and AR. BNP 54 TNI 0.02 x 3. EKG unchanged. TFTS (low TSH; normal free T4; free T3 pending). Code(s): I50.30 - UNSPECIFIED DIASTOLIC (CONGESTIVE) HEART FAILURE (7) Hypercholesteremia Assessment/Plan: On atorvastatin (would increase dose and keep LDL cholesterol <70 mg/dL). Code(s): E78.0 - PURE HYPERCHOLESTEROLEMIA * DO NOT USE *
--- NOTE | 2016-05-01 14:14 | PN ---
Progress Note, Physician History of Present Illness: patient doing well no complaints had ct scan done - Objective Vital Signs: Vital Signs Temperature 98.8 F 05/01/16 10:00 Pulse Rate 86 05/01/16 10:00 Respiratory Rate 18 05/01/16 10:00 Blood Pressure 140/76 05/01/16 10:00 O2 Sat by Pulse Oximetry (%) 97 05/01/16 09:00 Constitutional: Yes: No Distress, Calm HENT: Yes: Atraumatic Neck: Yes: Supple Cardiovascular: Yes: Regular Rate and Rhythm Respiratory: Yes: Regular, CTA Bilaterally Gastrointestinal: Yes: Normal Bowel Sounds, Soft Musculoskeletal: Yes: WNL Extremities: Yes: WNL Neurological: Yes: Alert, Oriented Psychiatric: Yes: Alert Labs: CBC, BMP 05/01/16 05:35 05/01/16 05:35 INR, PTT INR 0.88 (0.82-1.09) 04/25/16 05:40 Assessment/Plan patient evaluated and seen patient has been on chronic steroids and now she is coming in with copd exacerebration Hypertension Chest Pain Diabetes mellitus fungal lung infection plan ct scan images seen after looking at the results of ct scan i would not start any treatment for the mold await for mold to be identified then we will decide f/u with his pul/primary and await for the cx report and identification
--- NOTE | 2016-05-01 14:15 | PN ---
Progress Note, Physician History of Present Illness: patient doing well no complaints - Objective Vital Signs: Vital Signs Temperature 98.8 F 05/01/16 10:00 Pulse Rate 86 05/01/16 10:00 Respiratory Rate 18 05/01/16 10:00 Blood Pressure 140/76 05/01/16 10:00 O2 Sat by Pulse Oximetry (%) 97 05/01/16 09:00 Constitutional: Yes: No Distress, Calm Cardiovascular: Yes: Regular Rate and Rhythm Respiratory: Yes: Regular, Rhonchi Gastrointestinal: Yes: Normal Bowel Sounds, Soft Musculoskeletal: Yes: WNL Extremities: Yes: WNL Neurological: Yes: Alert, Oriented Labs: CBC, BMP 05/01/16 05:35 05/01/16 05:35 INR, PTT INR 0.88 (0.82-1.09) 04/25/16 05:40 Assessment/Plan patient evaluated and seen patient has been on chronic steroids and now she is coming in with copd exacerebration Hypertension Chest Pain Diabetes mellitus fungal lung infection plan continue current mgtm f/u with primary and pulmonary
== END 2016-05-01 13:37 | disposition home or self-care (01) | DRG 191 ==
LOC: JER 05:33 → JERBED 08:17 → J5S 08:59 → OBSVTOIN 04-30 13:40
PROVIDERS: ADMIT Internal Medicine; ATTEND Nurse Practitioner Family
DX: J44.1 Chronic obstructive pulmonary disease with (acute) exacerbation (principal); I50.30 Unspecified diastolic (congestive) heart failure; B48.8 Other specified mycoses; E11.9 Type 2 diabetes mellitus without complications; M19.90 Unspecified osteoarthritis, unspecified site; M81.0 Age-related osteoporosis without current pathological fracture; I11.0 Hypertensive heart disease with heart failure; E78.00 Pure hypercholesterolemia, unspecified; G47.33 Obstructive sleep apnea (adult) (pediatric); R53.1 Weakness; F41.8 Other specified anxiety disorders
CPT/HCPCS: 36415; 71010-TC; 71250-TC; 80053; 80061; 81003; 81015; 82550; 83036; 83605; 83721; 83735; 83880; 84132; 84439; 84443; 84481; 84484; 85025; 85027; 85610; 87070; 87086; 87107; 87205; 87254; 87804; 87899; 93005; 93010; 93306-TC; 94010; 94150; 94640; 99283-25; G0378

== ENCOUNTER → 2016-11-13 | Day surgery (SDC) | payer OTHER ==
--- NOTE | 2016-11-14 14:04 | PATH ---
Cytology Non-Gynecological Report Patient Name: NEVILLE AYALA [facility]. Rec. #: [id number] /Age/Gender: 1940 (Age: 76) / F Account: [id number] Location: RADIOLOGY Taken: 11/13/2016 Received: 11/13/2016 Reported: 11/14/2016 Physicians: William Evans M.D. Specimen(s) Received A: THYROID FNA B: THYROID FLUID RECEIVED IN 50% ALCOHOL Clinical History Thyroid nodule (left) Final Diagnosis A,B. THYROID GLAND, (LEFT LOBE), FINE NEEDLE ASPIRATION BIOPSY: LOW CELLULARITY, SATISFACTORY FOR EVALUATION DUE TO THE PRESENCE OF COLLOID. NO MALIGNANT CELLS IDENTIFIED. SCATTERED CLUSTERS OF BLAND APPEARING FOLLICULAR EPITHELIUM CELLS WITH HURTHLE CELL CHANGE, NUMEROUS MACROPHAGES AND COLLOID SUGGESTIVE OF NODULAR GOITER WITH CYSTIC CHANGE (BETHESDA CATEGORY II, BENIGN), SEE COMMENT. Comment: The smears, cell blocks and cytofunnel show scattered clusters of bland appearing follicular epithelial cells with Hurthle cell (oncocytic) change and colloid. Numerous macrophages are present indicative of cystic change. The findings are suggestive of nodular goiter with cystic change. Electronically Signed Kg Yousif M.D. Gross Description A. Received are four air dried smears, four smears in 95% alcohol, and 1 cc of bloody fluid in formalin. Four diff-quik stained slides, four Pap stained slides and one cell block are made. B. Received is 20 cc of brown fluid in 50% alcohol. One cytofunnel slide and one cell block are made.
== END | disposition home or self-care (01) ==
LOC: JRADIR 08:29
PROVIDERS: ATTEND Internal Medicine Endocrinology, Diabetes & Metabolism
PROC: 0G9G3ZX Drainage of Left Thyroid Gland Lobe, Percutaneous Approach, Diagnostic (ICD-10-PCS; principal; 2016-11-13)
PROC: BG44ZZZ Ultrasonography of Thyroid Gland (ICD-10-PCS; 2016-11-13)
DX: E04.1 Nontoxic single thyroid nodule (principal)
CPT/HCPCS: 76942; 88108; 88173; 88305-TC

== ENCOUNTER 2017-05-06 06:42 | Inpatient (IN) | payer OTHER ==
[2017-05-06 06:58] VITALS: BMI 36.3
[2017-05-06] MEDS ORDERED: ALBUTEROL SO4 2.5/IPRATROPIUM 0.5 INH SOL 3 ML VIAL.NEB. NEB ONE (07:13)
[2017-05-06] MEDS ORDERED: ALBUTEROL SO4 0.083% IH SOL 2.5 MG/3 ML VIAL.NEB. NEB PRN (07:25)
[2017-05-06] MEDS ORDERED: methylPREDNISolone NA SUCC 125 MG/2 ML VIAL IVPB ONE (07:25)
--- NOTE | 2017-05-06 07:31 | PDOC ---
History of Present Illness - General History Source: Patient Exam Limitations: No Limitations - History of Present Illness Initial Comments: 05/06/17 07:39 The patient is a 76 year old female with a significant PMH of COPD, asthma, hypertension, and hyperlipidemia who presents to the emergency department with persistent chest congestion and cough for 1 week after returning from a trip to [place]. The patient reports this is her normal COPD/asthma exacerbation. The patient used prednisone 40mg at home for approximately 5 days and tapered down to 20mg with no relief of symptoms. The patient states her chest congestion and cough persisted prompting her visit to the ER today for evaluation. The patient is complaining of dyspnea but denies any chest pain, leg swelling, headache and dizziness. Denies fever, chills, nausea, vomit, diarrhea and constipation. At baseline, the patient reports she goes to the gym everyday but is currently limited due to her dyspnea. The patient is O2 sat 97% on room air. Allergies: NKA Past surgical history: None reported. Social history: Former smoker. No reported alcohol or drug use. 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 <Maylin Aden - Last Filed: 05/06/17 07:47> <Reg Stroud - Last Filed: 05/06/17 10:35> - General Chief Complaint: Asthma Stated Complaint: ASTHMA Time Seen by Provider: 05/06/17 07:11 Past History <Maylin Aden - Last Filed: 05/06/17 07:47> - Past Medical History Asthma: Yes COPD: Yes Diabetes: Yes HTN: Yes - Surgical History Abdominal Surgery: Yes - Immunization History Immunization Up to Date: Yes - Suicide/Smoking/Psychosocial Hx Smoking Status: No Smoking History: Never smoked Have you smoked in the past 12 months: No Number of Cigarettes Smoked Daily: 0 If you are a former smoker, when did you quit?: 1989 Information on smoking cessation initiated: No Hx Alcohol Use: No Drug/Substance Use Hx: No Substance Use Type: Alcohol Hx Substance Use Treatment: No <Reg Stroud - Last Filed: 05/06/17 10:35> - Past Medical History Allergies/Adverse Reactions: Allergies Allergy/AdvReac Type Severity Reaction Status Date / Time Iodinated Contrast- Oral and Allergy Unknown Verified 05/06/17 06:57 IV Dye [IV Dye, Iodine Containing Contrast ] tetracycline [Tetracycline] Allergy Unknown Verified 05/06/17 06:57 shellfish derived Allergy Verified 05/06/17 06:57 Home Medications: Ambulatory Orders Arformoterol Tartrate [Brovana] 15 mcg IH DAILY 01/02/15 Losartan Potassium 50 mg PO DAILY 01/02/15 Metformin HCl 500 mg PO TID PRN 01/02/15 Mometasone Furoate [Asmanex 220Mcg -] 1 inh IH DAILY 01/02/15 Tiotropium [place] [Spiriva] 1 inh PO DAILY 01/02/15 Albuterol 0.083% Nebulizer Delmi [Ventolin 0.083% Nebulizer Soln -] 1 neb NEB Q4H PRN #1 box 10/12/15 Montelukast Na [Singulair -] 10 mg PO HS #30 tablet 05/01/16 Prednisone 24 mg PO DAILY 05/06/17 Review of Systems - Review of Systems Constitutional: No: Chills, Fever Respiratory: Yes: Cough, Shortness of Breath, Wheezing Cardiac (ROS): No: Chest Pain, Edema, Lightheadedness, Syncope ABD/GI: No: Diarrhea, Vomiting Neurological: No: Headache All Other Systems: Reviewed and Negative <Reg Stroud - Last Filed: 05/06/17 10:35> *Physical Exam - Vital Signs Last Vital Signs Temp Pulse Resp BP Pulse Ox 97.7 F 101 H 24 149/52 97 05/06/17 06:57 05/06/17 06:57 05/06/17 06:57 05/06/17 06:57 05/06/17 06:57 - Physical Exam Comments: 05/06/17 07:43 General: Patient is alert and in no acute distress. Speech is clear and appropriate. Head: Atraumatic and nontender. HEENT: Pupils are equal round and reactive to light, extraocular movements are intact. The tympanic membranes are clear, no hemotympanum. No facial deformity/ tenderness, no septal hematoma. The oropharynx is clear. Neck: The trachea is midline, there is no stridor. There is no midline cervical spine tenderness, full range of motion of neck. Chest: Nontender, no ecchymosis or abrasions. Heart: S1-S2, regular rate and rhythm. No murmurs. Lungs: (+) Good air movement. No accessory muscle use. Slight, diffuse inspiratory wheezes. Coarse expiratory wheezing. Slightly prolonged expiration. No focally decreased breath sounds. Abdomen: Soft/nontender/nondistended. Bowel sounds are normal. There is no abdominal or flank ecchymosis. Back/Pelvis: There is no midline spine tenderness or step-off. Pelvis is stable and nontender. Extremities: There is no extremity deformity or joint swelling. No focal bony tenderness throughout. 2+ distal pulses throughout. Neuro: Alert and oriented x3. Cranial nerves II through XII are intact. 5 out of 5 motor strength x4 extremities. [id number] is intact. No pronator drift. Gait is stable. Skin: No abrasions/hematomas/lacerations. Psych: Affect is appropriate. <Maylin Aden - Last Filed: 05/06/17 07:47> - Vital Signs Last Vital Signs Temp Pulse Resp BP Pulse Ox 97.7 F 101 H 24 149/52 97 05/06/17 06:57 05/06/17 06:57 05/06/17 06:57 05/06/17 06:57 05/06/17 06:57 <Reg Stroud - Last Filed: 05/06/17 10:35> Heart Score/ECG Review #1 ECG reviewed & interpreted by me at: 08:38 General ECG Interpretation: Sinus Rhythm, Normal Rate (98), Normal Intervals ( qtc 459), No acute ischemic changes <Reg Stroud - Last Filed: 05/06/17 10:35> ED Treatment Course - LABORATORY CBC & Chemistry Diagram: 05/06/17 07:31 05/06/17 07:31 - RADIOLOGY Radiology Studies Ordered: Category Date Time Status CHEST X-RAY PORTABLE* [RAD] Stat Radiology 05/06/17 07:26 Ordered <Reg Stroud - Last Filed: 05/06/17 10:35> Medical Decision Making - Medical Decision Making 05/06/17 07:27 A portion of this note was documented by scribe services under my direction. I have reviewed the details of the note, within reason, and agree with the documentation with the following case summary and management plan written by me. 76-year-old female with history of hypertension, diabetes, COPD/asthma presents with 1 week of persistent chest congestion with cough and shortness of breath. Patient returned from [place] about 8 days ago, began having her typical COPD exacerbation with cough and chest congestion, self treated with prednisone at home, 40 mg for about 5 days and now beginning 20 mg taper. Over the weekend, symptoms persisted and dyspnea persists so she presents for evaluation. No fevers or chills, no other URI symptoms, no chest pain, no leg swelling. Using her home nebulizers also without relief. At baseline has unlimited exercise tolerance, but now short of breath with relatively minimal exertion. Vitals as noted, O2 sat 96-97% on room air, improves to 100% on oxygen Seated in stretcher, overall well-appearing but tachypneic, speaking 5-6 words at a time, coarse bronchial cough Good air movement, no accessory muscle use, slight inspiratory and course expiratory wheezing diffusely, no focally decreased breath sounds, slightly prolonged expiration No edema 76-year-old female with COPD exacerbation, not improving on home nebulizers and relatively low dose prednisone. Rule out focal infectious process such as pneumonia, rule out influenza though no fever. Check labs, EKG Chest x-ray nebulizers, steroids Reassess. Discuss dispo with Dr. Perea, her veterinary science teacher 05/06/17 10:09 labs wnl, WBC 14 but on steroids. Chem wnl, trop negative. CXR without acute pathology. Improved after nebs/steroids, but still quite dyspneic with minimal ambulation in the ED. Will admit for further management. Accepted for obs med/surg by Dr. Miranda, Dr. Perea (her veterinary science teacher) consulted. <Reg Stroud - Last Filed: 05/06/17 10:35> *DC/Admit/Observation/Transfer - Attestations Scribe Attestion: 05/06/17 07:45 Documentation prepared by Maylin Aden, acting as director of medical services for Reg Stroud MD. <Maylin Aden - Last Filed: 05/06/17 07:47> - Discharge Dispostion Admit: Yes <Reg Stroud - Last Filed: 05/06/17 10:35> Diagnosis at time of Disposition: COPD exacerbation - Discharge Dispostion Condition at time of disposition: Fair
--- NOTE | 2017-05-06 07:35 | PDOC ---
History of Present Illness - General Chief Complaint: Asthma Stated Complaint: ASTHMA Time Seen by Provider: 05/06/17 07:11 Past History - Past Medical History Allergies/Adverse Reactions: Allergies Allergy/AdvReac Type Severity Reaction Status Date / Time Iodinated Contrast- Oral and Allergy Unknown Verified 05/06/17 06:57 IV Dye [IV Dye, Iodine Containing Contrast ] tetracycline [Tetracycline] Allergy Unknown Verified 05/06/17 06:57 shellfish derived Allergy Verified 05/06/17 06:57 Home Medications: Ambulatory Orders Arformoterol Tartrate [Brovana] 15 mcg IH DAILY 01/02/15 Losartan Potassium 50 mg PO DAILY 01/02/15 Metformin HCl 500 mg PO TID PRN 01/02/15 Mometasone Furoate [Asmanex 220Mcg -] 1 inh IH DAILY 01/02/15 Tiotropium [place] [Spiriva] 1 inh PO DAILY 01/02/15 Albuterol 0.083% Nebulizer Delmi [Ventolin 0.083% Nebulizer Soln -] 1 neb NEB Q4H PRN #1 box 10/12/15 Montelukast Na [Singulair -] 10 mg PO HS #30 tablet 05/01/16 Prednisone See Taper PO DAILY #60 tablet 05/01/16 Asthma: Yes COPD: Yes Diabetes: Yes HTN: Yes - Surgical History Abdominal Surgery: Yes - Immunization History Immunization Up to Date: Yes - Suicide/Smoking/Psychosocial Hx Smoking Status: No Smoking History: Never smoked Have you smoked in the past 12 months: No Number of Cigarettes Smoked Daily: 0 If you are a former smoker, when did you quit?: 1989 Information on smoking cessation initiated: No Hx Alcohol Use: No Drug/Substance Use Hx: No Substance Use Type: Alcohol Hx Substance Use Treatment: No *Physical Exam - Vital Signs Last Vital Signs Temp Pulse Resp BP Pulse Ox 97.7 F 101 H 24 149/52 97 05/06/17 06:57 05/06/17 06:57 05/06/17 06:57 05/06/17 06:57 05/06/17 06:57
[2017-05-06] MEDS ORDERED: methylPREDNISolone NA SUCC 125 MG/2 ML VIAL ONE (07:46)
[2017-05-06] MEDS ORDERED: ALBUTEROL SO4 0.083% IH SOL 2.5 MG/3 ML VIAL.NEB. NEB ONE ×2 (07:47→10:34)
[2017-05-06 07:51] LABS: BASO % 0.5 % (0-2.0); HEMATOCRIT 42.1 % (32.4-45.2); HEMOGLOBIN 13.4 GM/dL (10.7-15.3); MCHC 31.8 g/dl (32.0-36.0); MEAN CELL VOLUME 85.1 fl (80-96); MEAN PLT VOLUME 10.1 fl (7.5-11.1); MONO % 13.5 % (3.8-10.2); PLATELET COUNT 213 K/MM3 (134-434); RBC 4.94 M/mm3 (3.60-5.2); RDW 15.5 % (11.6-15.6); WHITE BLOOD COUNT 14.7 K/mm3 (4.0-10.0)
[2017-05-06 09:01] LABS: ALBUMIN 3.6 g/dl (3.4-5.0); ALK PHOS 91 U/L (45-117); ANION GAP 9 (8-16); BILIRUBIN,TOTAL 0.3 mg/dL (0.2-1.0); BLOOD UREA NITROGEN 28 mg/dL (7-18); CALCIUM 9.6 mg/dL (8.5-10.1); CHLORIDE 98 mmol/L (98-107); CO2 28 mmol/L (21-32); CREATININE 1.1 mg/dL (0.55-1.02); GLUCOSE,RANDOM 295 mg/dL (74-106); POTASSIUM 4.3 mmol/L (3.5-5.1); SGOT/AST 20 U/L (15-37); SGPT/ALT 33 U/L (12-78); SODIUM 135 mmol/L (136-145); TOT PROT 7.1 g/dl (6.4-8.2)
[2017-05-06] MEDS ORDERED: MAGNESIUM SULF 50% (8.12 MEQ/2 ML-1 GM VIAL) IVPB ONE (10:34)
[2017-05-06] MEDS ORDERED: MAGNESIUM SULF 50% (8.12 MEQ/2 ML-1 GM VIAL) ONE (10:35)
--- NOTE | 2017-05-06 12:16 | EKG ---
Test Reason : Blood Pressure : / mmHG Vent. Rate : 098 BPM Atrial Rate : 098 BPM P-R Int : 156 ms QRS Dur : 072 ms QT Int : 360 ms P-R-T Axes : 058 025 061 degrees QTc Int : 459 ms NORMAL SINUS RHYTHM POSSIBLE LEFT ATRIAL ENLARGEMENT BORDERLINE ECG WHEN COMPARED WITH ECG OF 27-APR-2016 12:00, ST SEGMENT VARIATION Confirmed by CLAIRE CORBETT MD ([id number]) on 05/06/2017 12:16:24 PM Referred By: Confirmed By:CLAIRE CORBETT MD
--- NOTE | 2017-05-06 13:27 | HP ---
Admitting History and Physical - Primary Care Physician PCP: Jarad Miranda - Admission Chief Complaint: sob History of Present Illness: 76 year old female with a significant PMH of COPD, asthma, hypertension, and hyperlipidemia who presents to the emergency department with persistent chest congestion and cough for 1 week after returning from a trip to [place]. The patient reports this is her normal COPD/asthma exacerbation. The patient used prednisone 40mg at home for approximately 5 days and tapered down to 20mg with no relief of symptoms. The patient states her chest congestion and cough persisted prompting her visit to the ER today for evaluation. The patient is complaining of dyspnea but denies any chest pain, leg swelling, headache and dizziness. Denies fever, chills, nausea, vomit, diarrhea and constipation. - Past Medical History Cardiovascular: Yes: HTN Pulmonary: Yes: Asthma, COPD Psych: Yes: Anxiety Endocrine: Yes: Diabetes Mellitus - Past Surgical History Past Surgical History: Yes: Breast Biopsy, Tubal Ligation - Smoking History Smoking history: Never smoked Have you smoked in the past 12 months: No Aproximately how many cigarettes per day: 0 If you are a former smoker, when did you quit?: 1989 - Alcohol/Substance Use Hx Alcohol Use: No Home Medications - Allergies Allergies/Adverse Reactions: Allergies Allergy/AdvReac Type Severity Reaction Status Date / Time Iodinated Contrast- Oral and Allergy Unknown Verified 05/06/17 06:57 IV Dye [IV Dye, Iodine Containing Contrast ] tetracycline [Tetracycline] Allergy Unknown Verified 05/06/17 06:57 shellfish derived Allergy Verified 05/06/17 06:57 - Home Medications Home Medications: Ambulatory Orders Arformoterol Tartrate [Brovana] 15 mcg IH DAILY 01/02/15 Losartan Potassium 50 mg PO DAILY 01/02/15 Metformin HCl 500 mg PO TID PRN 01/02/15 Mometasone Furoate [Asmanex 220Mcg -] 2 inh IH HS 01/02/15 Tiotropium [place] [Spiriva] 1 inh PO DAILY 01/02/15 Albuterol 0.083% Nebulizer Delmi [Ventolin 0.083% Nebulizer Soln -] 1 neb NEB Q4H PRN #1 box 10/12/15 Montelukast Na [Singulair -] 10 mg PO HS #30 tablet 05/01/16 Prednisone 24 mg PO DAILY 05/06/17 Physical Examination Vital Signs: Vital Signs Temperature 97.9 F 05/06/17 12:14 Pulse Rate 98 H 05/06/17 12:14 Respiratory Rate 20 05/06/17 12:14 Blood Pressure 143/75 05/06/17 12:14 O2 Sat by Pulse Oximetry (%) 97 05/06/17 08:04 Constitutional: Yes: No Distress HENT: Yes: Atraumatic Neck: Yes: Supple Cardiovascular: Yes: Regular Rate and Rhythm Respiratory: Yes: Rhonchi, Wheezes Gastrointestinal: Yes: Normal Bowel Sounds Extremities: Yes: WNL Neurological: Yes: Alert, Oriented Labs: CBC, BMP 05/06/17 07:31 05/06/17 07:31 Problem List - Problems (1) COPD exacerbation Assessment/Plan: iv steroids, duo nebs Code(s): J44.1 - CHRONIC OBSTRUCTIVE PULMONARY DISEASE W (ACUTE) EXACERBATION (2) Diabetes Assessment/Plan: insulin sliding scale oral meds bgms Code(s): E11.9 - TYPE 2 DIABETES MELLITUS WITHOUT COMPLICATIONS (3) Hypercholesteremia Code(s): E78.0 - PURE HYPERCHOLESTEROLEMIA * DO NOT USE * (4) Hypertension Assessment/Plan: on meds stable Code(s): I10 - ESSENTIAL (PRIMARY) HYPERTENSION Assessment/Plan Laboratory Tests 05/06/17 05/06/17 05/06/17 07:31 07:31 07:31 WBC 14.7 H RBC 4.94 Hgb 13.4 Hct 42.1 MCV 85.1 MCH 27.0 MCHC 31.8 L RDW 15.5 Plt Count 213 MPV 10.1 Neutrophils % 68.0 D Lymphocytes % 16.0 D Monocytes % 13.5 H D Eosinophils % 2.0 D Basophils % 0.5 D Sodium 135 L Potassium 4.3 Chloride 98 Carbon Dioxide 28 Anion Gap 9 BUN 28 H D Creatinine 1.1 H D Creat Clearance w eGFR 48.29 Random Glucose 295 H D Calcium 9.6 Total Bilirubin 0.3 D AST 20 D ALT 33 Alkaline Phosphatase 91 D Creatine Kinase 151 Cancelled Creatine Kinase Index 2.4 CK-MB (CK-2) 3.667 H Troponin I 0.02 Cancelled Total Protein 7.1 D Albumin 3.6 Active Medications Generic Name Dose Route Start Last Admin Trade Name Freq PRN Reason Stop Dose Admin Albuterol Sulfate 1 amp 05/06/17 07:25 05/06/17 07:46 Ventolin 0.083% Nebulizer Soln - NEB 1 amp Q15M PRN Administration Dyspnea Active Medications Generic Name Dose Route Start Last Admin Trade Name Freq PRN Reason Stop Dose Admin Acetaminophen 650 mg 05/06/17 22:26 Tylenol - PO Q6H PRN FEVER OR PAIN Albuterol Sulfate 1 amp 05/06/17 13:28 Ventolin 0.083% Nebulizer Soln - NEB Q4H PRN SHORT OF BREATH/WHEEZING Albuterol/Ipratropium 1 amp 05/06/17 22:26 Duoneb - NEB Q4H PRN SHORTNESS OF BREATH Arformoterol Tartrate 1 amp 05/06/17 20:00 05/08/17 08:10 Brovana (Restricted To Pulmonology/Resp) - NEB 1 amp RBID CORNELL Administration Insulin Aspart 1 vial 05/06/17 22:00 05/08/17 17:07 Novolog Vial Sliding Scale - SQ 6 units ACHS CORNELL Administration Protocol Losartan Potassium 50 mg 05/06/17 17:38 05/08/17 09:35 Cozaar - PO 50 mg DAILY CORNELL Administration Metformin HCl 500 mg 05/06/17 16:45 05/08/17 17:03 Glucophage - PO 500 mg TID@0700,1130,1630 CORNELL Administration Methylprednisolone Sodium Succinate 60 mg 05/06/17 21:00 05/08/17 15:37 Solu-Medrol - IVPUSH 60 mg Q6H-IV CORNELL Administration Mometasone Furoate 2 puff 05/08/17 22:00 Asmanex 220mcg - IH BID CORNELL Montelukast Sodium 10 mg 05/06/17 22:00 05/07/17 22:17 Singulair - PO 10 mg HS CORNELL Administration Tiotropium [place] 1 puff 05/06/17 13:30 05/08/17 09:35 Spiriva - IH 1 puff DAILY CORNELL Administration Zolpidem Tartrate 5 mg 05/06/17 15:57 05/08/17 01:49 Ambien - PO 5 mg HS PRN Administration INSOMNIA
--- NOTE | 2017-05-06 15:53 | PN ---
Progress Note (short form) - Note Progress Note: PULMONARY CONSULTATION DICTATED 05/06/17 IMP ASTHMA/COPD EXACERBATION HTN HLD RON NIDDM PLAN IV STEROIDS INHALED BRONCHODILATORS/INHALED STEROIDS O2 PRN MONITOR PEAK FLOW TITRATE BP MEDS MONITOR LYTES/RENAL FUNCTION DR BROWN Problem List - Problems (1) Asthma exacerbation Code(s): J45.901 - UNSPECIFIED ASTHMA WITH (ACUTE) EXACERBATION (2) Asthma exacerbation in COPD Code(s): J44.1 - CHRONIC OBSTRUCTIVE PULMONARY DISEASE W (ACUTE) EXACERBATION; J45.901 - UNSPECIFIED ASTHMA WITH (ACUTE) EXACERBATION (3) Hypercholesteremia Code(s): E78.0 - PURE HYPERCHOLESTEROLEMIA * DO NOT USE * (4) Hypertension Code(s): I10 - ESSENTIAL (PRIMARY) HYPERTENSION (5) Osteoarthritis Code(s): M19.90 - UNSPECIFIED OSTEOARTHRITIS, UNSPECIFIED SITE (6) Diabetes Code(s): E11.9 - TYPE 2 DIABETES MELLITUS WITHOUT COMPLICATIONS
--- NOTE | 2017-05-06 16:19 | CONS ---
DATE OF CONSULTATION: 05/06/2017 REFERRING PHYSICIAN: Jarad Miranda MD HISTORY: The patient is a 76-year-old black female known to me from previous hospitalizations as well as follow up with past medical history of COPD/asthma, hypertension, hyperlipidemia who presented to [facility] with the complaint of cough, chest congestion for approximately 1 week. The patient states she recently returned from [place]. She states while in [place] she started developing cough, shortness of breath, and chest congestion. At the time, she started herself on prednisone. Despite these measures, the symptoms initially improved then she started developing increasing symptoms after the prednisone was being tapered. She denies any fevers, chills, nausea, vomiting, or diaphoresis. She states that the symptoms increased in severity at which time she presented to the emergency room. In the emergency room she was treated with bronchodilators and IV steroids with good response. She denies any chest pains or palpitations. She denies any fevers, weight loss, or night sweats. Denies hemoptysis. There is no history of occupational exposure to chemicals or fumes. There is no history of recent travel. There is no history of DVT or PE in the past. Of note, on admission the patient's O2 saturation was 97% on room air. PAST MEDICAL HISTORY: Again, includes COPD/asthma, hypertension, hyperlipidemia. SOCIAL HISTORY: No occupational exposures. History of smoking. Quit years ago. MEDICATIONS: Prior to admission include Brovana, losartan, metformin, Asmanex, Spiriva, albuterol, Singulair, and prednisone. Current medications include Spiriva, Asmanex, Cozaar, albuterol, Glucophage, Singulair. REVIEW OF SYSTEMS: Positive shortness of breath. Positive cough. Positive wheezing. Positive chest tightness. No nausea, no vomiting, no fevers, no chills, no hemoptysis, no abdominal pain, no lower extremity edema. PHYSICAL EXAMINATION: General: The patient is a well-developed, well-nourished female awake and alert in no acute distress. Vital Signs: She is currently afebrile. Blood pressure is 143/75, respiratory rate 20, O2 saturation 97% on room air. HEENT: Normocephalic and atraumatic. Neck: Supple. Heart: Regular S1, S2. Chest: Diffuse bilateral expiratory and inspiratory wheezes. Abdomen: Soft. Bowel sounds positive. Extremities: No cyanosis or edema. LABORATORIES: WBC is 14.7, hemoglobin 13.4, hematocrit 42.1 with a platelet count of 213,000, INR 0.88. Chemistries: BUN 28, creatinine 1.1. Chest x-ray: No infiltrates and no effusions. IMPRESSION: 1. Acute asthma/chronic obstructive pulmonary disease exacerbation. 2. Hypertension. 3. Hyperlipidemia. 4. Acute kidney injury. PLAN: IV steroids, inhaled bronchodilators, supplemental O2 on monitored peak flow. Monitor renal function. BP medications. Monitor BP. Titrate BP medications. EUGENIA BROWN M.D. [id number]
[2017-05-06] MEDS ORDERED: LOSARTAN POTASSIUM 25 MG TABLET ONE (16:27)
[2017-05-06] MEDS: metFORMIN HCL 500 MG TABLET (FP) PO SCH (17:42)
[2017-05-06] MEDS ORDERED: INSULIN (NOVOLOG) ASPART 100 UNITS/ML 10ML VIAL ONE (17:50)
[2017-05-06] MEDS: INSULIN SLIDING SCALE (NOVOLOG) 1 VIAL SQ SCH ×2 (17:51→21:31)
[2017-05-06] MEDS: LOSARTAN POTASSIUM 50 MG TABLET (FP) PO SCH (18:25)
[2017-05-06] MEDS: ARFORMOTEROL TARTRATE 15 MCG/2 ML VIAL NEB SCH (19:47)
[2017-05-06] MEDS: methylPREDNISolone NA SUCC 40 MG/1 ML VIAL IVPUSH SCH (21:31)
[2017-05-06] MEDS: MONTELUKAST NA 10 MG TABLET PO SCH (21:57)
[2017-05-06] MEDS: MOMETASONE FUROATE 220 MCG/IH INHALER IH SCH (21:58)
[2017-05-06] MEDS ORDERED: ACETAMINOPHEN 325 MG TABLET (FP) PO PRN (22:26)
[2017-05-07] MEDS: ZOLPIDEM TARTRATE 5 MG TABLET PO PRN (00:33)
[2017-05-07] MEDS: methylPREDNISolone NA SUCC 40 MG/1 ML VIAL IVPUSH SCH ×4 (03:42→22:17)
[2017-05-07] MEDS: metFORMIN HCL 500 MG TABLET (FP) PO SCH ×3 (06:34→16:53)
[2017-05-07] MEDS: INSULIN SLIDING SCALE (NOVOLOG) 1 VIAL SQ SCH ×4 (06:35→22:13)
[2017-05-07] MEDS: ARFORMOTEROL TARTRATE 15 MCG/2 ML VIAL NEB SCH ×2 (07:01→20:00)
[2017-05-07] MEDS: TIOTROPIUM BROMIDE 18 MCG/INH (DEVICE W/ 5 CAPSULES) IH SCH ×2 (08:10→11:26)
[2017-05-07] MEDS ORDERED: LOSARTAN POTASSIUM 50 MG TABLET (FP) PO SCH (10:00)
[2017-05-07] MEDS ORDERED: PT OWN MED DRAWER 7, Y5N ONE ×3 (10:42→16:45)
[2017-05-07] MEDS: MOMETASONE FUROATE 220 MCG/IH INHALER IH SCH (11:25)
[2017-05-07] MEDS: LOSARTAN POTASSIUM 50 MG TABLET (FP) PO SCH (11:26)
[2017-05-07] MEDS ORDERED: INSULIN (NOVOLOG) ASPART 100 UNITS/ML 10ML VIAL ONE ×2 (12:05→16:42)
--- NOTE | 2017-05-07 13:07 | PN ---
Progress Note, Physician History of Present Illness: pulmonary alert,still dyspneic,+cough - Current Medication List Current Medications: Active Medications Acetaminophen (Tylenol -) 650 mg PO Q6H PRN PRN Reason: FEVER OR PAIN Albuterol Sulfate (Ventolin 0.083% Nebulizer Soln -) 1 amp NEB Q4H PRN PRN Reason: SHORT OF BREATH/WHEEZING Albuterol/Ipratropium (Duoneb -) 1 amp NEB Q4H PRN PRN Reason: SHORTNESS OF BREATH Arformoterol Tartrate (Brovana (Restricted To Pulmonology/Resp) -) 1 amp NEB RBID [facility] Last Admin: 05/07/17 07:01 Dose: 1 amp Insulin Aspart (Novolog Vial Sliding Scale -) 1 vial SQ ACHS CORNELL PRN Reason: Protocol Last Admin: 05/07/17 12:09 Dose: 12 units Losartan Potassium (Cozaar -) 50 mg PO DAILY [facility] Last Admin: 05/07/17 11:26 Dose: 50 mg Metformin HCl (Glucophage -) 500 mg PO TID@0700,1130,1630 [facility] Last Admin: 05/07/17 12:09 Dose: 500 mg Methylprednisolone Sodium Succinate (Solu-Medrol -) 60 mg IVPUSH Q6H-IV [facility] Last Admin: 05/07/17 11:25 Dose: 60 mg Mometasone Furoate (Asmanex 220mcg -) 1 puff IH DAILY [facility] Last Admin: 05/07/17 11:25 Dose: 1 puff Montelukast Sodium (Singulair -) 10 mg PO HS [facility] Last Admin: 05/06/17 21:57 Dose: 10 mg Tiotropium [place] (Spiriva -) 1 puff IH DAILY [facility] Last Admin: 05/07/17 11:26 Dose: 1 puff Zolpidem Tartrate (Ambien -) 5 mg PO HS PRN PRN Reason: INSOMNIA Last Admin: 05/07/17 00:33 Dose: 5 mg - Objective Vital Signs: Vital Signs Temperature 98.2 F 05/07/17 06:00 Pulse Rate 93 H 05/07/17 10:00 Respiratory Rate 20 05/07/17 10:00 Blood Pressure 146/72 05/07/17 10:00 O2 Sat by Pulse Oximetry (%) 95 01/08/18 21:00 Constitutional: Yes: Well Nourished, Calm Eyes: Yes: WNL HENT: Yes: WNL Neck: Yes: WNL Cardiovascular: Yes: Regular Rate and Rhythm, S1, S2 Respiratory: Yes: Wheezes (bilateral wheezes) Gastrointestinal: Yes: Normal Bowel Sounds, Soft Extremities: Yes: WNL Edema: No Labs: CBC, BMP Problem List - Problems (1) Asthma exacerbation Code(s): J45.901 - UNSPECIFIED ASTHMA WITH (ACUTE) EXACERBATION (2) Asthma exacerbation in COPD Code(s): J44.1 - CHRONIC OBSTRUCTIVE PULMONARY DISEASE W (ACUTE) EXACERBATION; J45.901 - UNSPECIFIED ASTHMA WITH (ACUTE) EXACERBATION (3) Hypercholesteremia Code(s): E78.0 - PURE HYPERCHOLESTEROLEMIA * DO NOT USE * (4) Hypertension Code(s): I10 - ESSENTIAL (PRIMARY) HYPERTENSION (5) Osteoarthritis Code(s): M19.90 - UNSPECIFIED OSTEOARTHRITIS, UNSPECIFIED SITE (6) Diabetes Code(s): E11.9 - TYPE 2 DIABETES MELLITUS WITHOUT COMPLICATIONS Assessment/Plan IMP ASTHMA/COPD EXACERBATION HTN HLD RON NIDDM PLAN IV STEROIDS SAME DOSE INHALED BRONCHODILATORS/INHALED STEROIDS O2 PRN MONITOR PEAK FLOW MONITOR LYTES/RENAL FUNCTION DR BROWN Problem List - Problems (1) Asthma exacerbation Code(s): J45.901 - UNSPECIFIED ASTHMA WITH (ACUTE) EXACERBATION (2) Asthma exacerbation in COPD Code(s): J44.1 - CHRONIC OBSTRUCTIVE PULMONARY DISEASE W (ACUTE) EXACERBATION; J45.901 - UNSPECIFIED ASTHMA WITH (ACUTE) EXACERBATION (3) Hypercholesteremia Code(s): E78.0 - PURE HYPERCHOLESTEROLEMIA * DO NOT USE * (4) Hypertension Code(s): I10 - ESSENTIAL (PRIMARY) HYPERTENSION (5) Osteoarthritis Code(s): M19.90 - UNSPECIFIED OSTEOARTHRITIS, UNSPECIFIED SITE (6) Diabetes Code(s): E11.9 - TYPE 2 DIABETES MELLITUS WITHOUT COMPLICATIONS
--- NOTE | 2017-05-07 19:50 | PN ---
Progress Note, Physician History of Present Illness: still congested - Current Medication List Current Medications: Active Medications Acetaminophen (Tylenol -) 650 mg PO Q6H PRN PRN Reason: FEVER OR PAIN Albuterol Sulfate (Ventolin 0.083% Nebulizer Soln -) 1 amp NEB Q4H PRN PRN Reason: SHORT OF BREATH/WHEEZING Albuterol/Ipratropium (Duoneb -) 1 amp NEB Q4H PRN PRN Reason: SHORTNESS OF BREATH Arformoterol Tartrate (Brovana (Restricted To Pulmonology/Resp) -) 1 amp NEB RBID [facility] Last Admin: 05/07/17 07:01 Dose: 1 amp Insulin Aspart (Novolog Vial Sliding Scale -) 1 vial SQ ACHS [facility] PRN Reason: Protocol Last Admin: 05/07/17 16:53 Dose: 8 units Losartan Potassium (Cozaar -) 50 mg PO DAILY [facility] Last Admin: 05/07/17 11:26 Dose: 50 mg Metformin HCl (Glucophage -) 500 mg PO TID@0700,1130,1630 [facility] Last Admin: 05/07/17 16:53 Dose: 500 mg Methylprednisolone Sodium Succinate (Solu-Medrol -) 60 mg IVPUSH Q6H-IV [facility] Last Admin: 05/07/17 16:07 Dose: 60 mg Mometasone Furoate (Asmanex 220mcg -) 1 puff IH DAILY [facility] Last Admin: 05/07/17 11:25 Dose: 1 puff Montelukast Sodium (Singulair -) 10 mg PO HS [facility] Last Admin: 05/06/17 21:57 Dose: 10 mg Tiotropium [place] (Spiriva -) 1 puff IH DAILY [facility] Last Admin: 05/07/17 11:26 Dose: 1 puff Zolpidem Tartrate (Ambien -) 5 mg PO HS PRN PRN Reason: INSOMNIA Last Admin: 05/07/17 00:33 Dose: 5 mg - Objective Vital Signs: Vital Signs Temperature 98.8 F 05/07/17 13:55 Pulse Rate 93 H 05/07/17 13:55 Respiratory Rate 19 05/07/17 17:18 Blood Pressure 167/71 05/07/17 13:55 O2 Sat by Pulse Oximetry (%) 95 05/06/17 21:00 Constitutional: Yes: No Distress HENT: Yes: Atraumatic Neck: Yes: Supple Cardiovascular: Yes: Regular Rate and Rhythm Respiratory: Yes: Rhonchi, Wheezes Gastrointestinal: Yes: Normal Bowel Sounds Extremities: Yes: WNL Neurological: Yes: Alert, Oriented Labs: CBC, BMP 05/06/17 07:31 05/06/17 17:30 Problem List - Problems (1) COPD exacerbation Assessment/Plan: iv steroids, duo nebs will start him on iv abx emperically to cover for infection.../bronchitis Code(s): J44.1 - CHRONIC OBSTRUCTIVE PULMONARY DISEASE W (ACUTE) EXACERBATION (2) Diabetes Code(s): E11.9 - TYPE 2 DIABETES MELLITUS WITHOUT COMPLICATIONS (3) Hypercholesteremia Code(s): E78.0 - PURE HYPERCHOLESTEROLEMIA * DO NOT USE * (4) Hypertension Assessment/Plan: on meds Code(s): I10 - ESSENTIAL (PRIMARY) HYPERTENSION
[2017-05-07] MEDS ORDERED: CEFTRIAXONE 1 G/50 ML PREMIX 50 ML IVPB SCH (20:00)
[2017-05-07] MEDS: MONTELUKAST NA 10 MG TABLET PO SCH (22:17)
[2017-05-08] MEDS: ZOLPIDEM TARTRATE 5 MG TABLET PO PRN ×2 (01:49→21:16)
[2017-05-08] MEDS: methylPREDNISolone NA SUCC 40 MG/1 ML VIAL IVPUSH SCH ×4 (02:57→21:15)
[2017-05-08] MEDS: INSULIN SLIDING SCALE (NOVOLOG) 1 VIAL SQ SCH ×4 (06:17→21:15)
[2017-05-08] MEDS: metFORMIN HCL 500 MG TABLET (FP) PO SCH ×3 (06:17→17:03)
[2017-05-08] MEDS: ARFORMOTEROL TARTRATE 15 MCG/2 ML VIAL NEB SCH ×2 (08:10→20:40)
[2017-05-08 09:11] LABS: CHLORIDE 101 mmol/L (98-107); POTASSIUM 4.2 mmol/L (3.5-5.1); SODIUM 137 mmol/L (136-145)
[2017-05-08 09:20] LABS: ANION GAP 13 (8-16); BLOOD UREA NITROGEN 25 mg/dL (7-18); CALCIUM 8.7 mg/dL (8.5-10.1); CO2 23 mmol/L (21-32); CREATININE 0.7 mg/dL (0.55-1.02); GLUCOSE,RANDOM 234 mg/dL (74-106)
[2017-05-08] MEDS ORDERED: PT OWN MED DRAWER 7, Y5N ONE ×4 (09:29→21:06)
[2017-05-08] MEDS: LOSARTAN POTASSIUM 50 MG TABLET (FP) PO SCH (09:35)
[2017-05-08] MEDS: TIOTROPIUM BROMIDE 18 MCG/INH (DEVICE W/ 5 CAPSULES) IH SCH (09:35)
[2017-05-08] MEDS: MOMETASONE FUROATE 220 MCG/IH INHALER IH SCH ×2 (09:35→21:17)
[2017-05-08] MEDS ORDERED: INSULIN (NOVOLOG) ASPART 100 UNITS/ML 10ML VIAL ONE ×5 (12:01→21:04)
--- NOTE | 2017-05-08 13:05 | PN ---
Progress Note, Physician History of Present Illness: PULMONARY ALERT,FEELING BETTER,LESS DYSPNEIC - Current Medication List Current Medications: Active Medications Acetaminophen (Tylenol -) 650 mg PO Q6H PRN PRN Reason: FEVER OR PAIN Albuterol Sulfate (Ventolin 0.083% Nebulizer Soln -) 1 amp NEB Q4H PRN PRN Reason: SHORT OF BREATH/WHEEZING Albuterol/Ipratropium (Duoneb -) 1 amp NEB Q4H PRN PRN Reason: SHORTNESS OF BREATH Arformoterol Tartrate (Brovana (Restricted To Pulmonology/Resp) -) 1 amp NEB RBID [facility] Last Admin: 05/08/17 08:10 Dose: 1 amp Insulin Aspart (Novolog Vial Sliding Scale -) 1 vial SQ ACHS [facility] PRN Reason: Protocol Last Admin: 05/08/17 12:03 Dose: 10 units Losartan Potassium (Cozaar -) 50 mg PO DAILY [facility] Last Admin: 05/08/17 09:35 Dose: 50 mg Metformin HCl (Glucophage -) 500 mg PO TID@0700,1130,1630 [facility] Last Admin: 05/08/17 12:03 Dose: 500 mg Methylprednisolone Sodium Succinate (Solu-Medrol -) 60 mg IVPUSH Q6H-IV [facility] Last Admin: 05/08/17 09:34 Dose: 60 mg Mometasone Furoate (Asmanex 220mcg -) 1 puff IH DAILY [facility] Last Admin: 05/08/17 09:35 Dose: 1 puff Montelukast Sodium (Singulair -) 10 mg PO HS [facility] Last Admin: 05/07/17 22:17 Dose: 10 mg Tiotropium [place] (Spiriva -) 1 puff IH DAILY [facility] Last Admin: 05/08/17 09:35 Dose: 1 puff Zolpidem Tartrate (Ambien -) 5 mg PO HS PRN PRN Reason: INSOMNIA Last Admin: 05/08/17 01:49 Dose: 5 mg - Objective Vital Signs: Vital Signs Temperature 98 F 05/08/17 09:32 Pulse Rate 95 H 05/08/17 09:32 Respiratory Rate 20 05/08/17 09:32 Blood Pressure 126/86 05/08/17 09:32 O2 Sat by Pulse Oximetry (%) 96 05/08/17 08:10 Constitutional: Yes: Well Nourished, Calm Eyes: Yes: WNL HENT: Yes: WNL Neck: Yes: WNL Cardiovascular: Yes: Regular Rate and Rhythm, S1, S2 Respiratory: Yes: Wheezes (JOSE WHEEZES) Gastrointestinal: Yes: Normal Bowel Sounds, Soft Extremities: Yes: WNL Edema: No Labs: CBC, BMP 05/08/17 06:30 Problem List - Problems (1) Asthma exacerbation Code(s): J45.901 - UNSPECIFIED ASTHMA WITH (ACUTE) EXACERBATION (2) Asthma exacerbation in COPD Code(s): J44.1 - CHRONIC OBSTRUCTIVE PULMONARY DISEASE W (ACUTE) EXACERBATION; J45.901 - UNSPECIFIED ASTHMA WITH (ACUTE) EXACERBATION (3) Hypercholesteremia Code(s): E78.0 - PURE HYPERCHOLESTEROLEMIA * DO NOT USE * (4) Hypertension Code(s): I10 - ESSENTIAL (PRIMARY) HYPERTENSION (5) Osteoarthritis Code(s): M19.90 - UNSPECIFIED OSTEOARTHRITIS, UNSPECIFIED SITE (6) Diabetes Code(s): E11.9 - TYPE 2 DIABETES MELLITUS WITHOUT COMPLICATIONS Assessment/Plan IMP ASTHMA/COPD EXACERBATION HTN HLD RON IMPROVING NIDDM PLAN IV STEROIDS SAME DOSE INHALED BRONCHODILATORS/INHALED STEROIDS O2 PRN MONITOR PEAK FLOW MONITOR LYTES RENAL FUNCTION DR BROWN Problem List - Problems (1) Asthma exacerbation Code(s): J45.901 - UNSPECIFIED ASTHMA WITH (ACUTE) EXACERBATION (2) Asthma exacerbation in COPD Code(s): J44.1 - CHRONIC OBSTRUCTIVE PULMONARY DISEASE W (ACUTE) EXACERBATION; J45.901 - UNSPECIFIED ASTHMA WITH (ACUTE) EXACERBATION (3) Hypercholesteremia Code(s): E78.0 - PURE HYPERCHOLESTEROLEMIA * DO NOT USE * (4) Hypertension Code(s): I10 - ESSENTIAL (PRIMARY) HYPERTENSION (5) Osteoarthritis Code(s): M19.90 - UNSPECIFIED OSTEOARTHRITIS, UNSPECIFIED SITE (6) Diabetes Code(s): E11.9 - TYPE 2 DIABETES MELLITUS WITHOUT COMPLICATIONS
--- NOTE | 2017-05-08 17:31 | PN ---
Progress Note, Physician History of Present Illness: feeling better - Current Medication List Current Medications: Active Medications Acetaminophen (Tylenol -) 650 mg PO Q6H PRN PRN Reason: FEVER OR PAIN Albuterol Sulfate (Ventolin 0.083% Nebulizer Soln -) 1 amp NEB Q4H PRN PRN Reason: SHORT OF BREATH/WHEEZING Albuterol/Ipratropium (Duoneb -) 1 amp NEB Q4H PRN PRN Reason: SHORTNESS OF BREATH Arformoterol Tartrate (Brovana (Restricted To Pulmonology/Resp) -) 1 amp NEB RBID [facility] Last Admin: 05/08/17 08:10 Dose: 1 amp Insulin Aspart (Novolog Vial Sliding Scale -) 1 vial SQ ACHS [facility] PRN Reason: Protocol Last Admin: 05/08/17 17:07 Dose: 6 units Losartan Potassium (Cozaar -) 50 mg PO DAILY [facility] Last Admin: 05/08/17 09:35 Dose: 50 mg Metformin HCl (Glucophage -) 500 mg PO TID@0700,1130,1630 [facility] Last Admin: 05/08/17 17:03 Dose: 500 mg Methylprednisolone Sodium Succinate (Solu-Medrol -) 60 mg IVPUSH Q6H-IV [facility] Last Admin: 05/08/17 15:37 Dose: 60 mg Mometasone Furoate (Asmanex 220mcg -) 2 puff IH BID [facility] Montelukast Sodium (Singulair -) 10 mg PO HS [facility] Last Admin: 05/07/17 22:17 Dose: 10 mg Tiotropium [place] (Spiriva -) 1 puff IH DAILY [facility] Last Admin: 05/08/17 09:35 Dose: 1 puff Zolpidem Tartrate (Ambien -) 5 mg PO HS PRN PRN Reason: INSOMNIA Last Admin: 05/08/17 01:49 Dose: 5 mg - Objective Vital Signs: Vital Signs Temperature 97.6 F 05/08/17 15:10 Pulse Rate 84 05/08/17 15:10 Respiratory Rate 17 05/08/17 15:10 Blood Pressure 134/58 05/08/17 15:10 O2 Sat by Pulse Oximetry (%) 99 05/08/17 09:45 Constitutional: Yes: No Distress HENT: Yes: Atraumatic Neck: Yes: Supple Cardiovascular: Yes: Regular Rate and Rhythm Respiratory: Yes: Wheezes Gastrointestinal: Yes: Normal Bowel Sounds Extremities: Yes: WNL Neurological: Yes: Alert, Oriented Labs: CBC, BMP 05/06/17 07:31 05/08/17 06:30 Problem List - Problems (1) COPD exacerbation Assessment/Plan: iv steroids, duo nebs Code(s): J44.1 - CHRONIC OBSTRUCTIVE PULMONARY DISEASE W (ACUTE) EXACERBATION (2) Diabetes Assessment/Plan: insulin sliding scale oral meds bgms Code(s): E11.9 - TYPE 2 DIABETES MELLITUS WITHOUT COMPLICATIONS (3) Hypercholesteremia Code(s): E78.0 - PURE HYPERCHOLESTEROLEMIA * DO NOT USE * (4) Hypertension Code(s): I10 - ESSENTIAL (PRIMARY) HYPERTENSION
[2017-05-08] MEDS: CEFTRIAXONE 1 G/50 ML PREMIX 50 ML IVPB SCH (18:00)
[2017-05-08] MEDS: MONTELUKAST NA 10 MG TABLET PO SCH (21:16)
[2017-05-09] MEDS: methylPREDNISolone NA SUCC 40 MG/1 ML VIAL IVPUSH SCH ×4 (02:46→22:04)
[2017-05-09] MEDS: metFORMIN HCL 500 MG TABLET (FP) PO SCH ×3 (06:35→17:33)
[2017-05-09] MEDS: INSULIN SLIDING SCALE (NOVOLOG) 1 VIAL SQ SCH ×4 (06:35→22:04)
[2017-05-09] MEDS: ARFORMOTEROL TARTRATE 15 MCG/2 ML VIAL NEB SCH ×2 (08:59→20:00)
[2017-05-09] MEDS ORDERED: PT OWN MED DRAWER 7, Y5N ONE ×2 (10:32→12:11)
[2017-05-09] MEDS: TIOTROPIUM BROMIDE 18 MCG/INH (DEVICE W/ 5 CAPSULES) IH SCH (11:11)
[2017-05-09] MEDS: MOMETASONE FUROATE 220 MCG/IH INHALER IH SCH ×2 (11:11→22:40)
[2017-05-09] MEDS: CEFTRIAXONE 1 G/50 ML PREMIX 50 ML IVPB SCH (11:11)
[2017-05-09] MEDS: LOSARTAN POTASSIUM 50 MG TABLET (FP) PO SCH (11:11)
--- NOTE | 2017-05-09 12:06 | PN ---
Progress Note (short form) - Note Progress Note: PULMONARY Breathing slightly improved but still dyspneic with minimal exertion, cough with thick productive sputum and wheezing. Last Vital Signs Temp Pulse Resp BP Pulse Ox 98.1 F 76 18 137/68 96 05/09/17 06:00 05/09/17 06:00 05/09/17 06:00 05/09/17 06:00 05/09/17 01:55 Gen: tachypneic with speaking Heart: RRR Lung: poor air movement, bilateral wheezes Abd: soft, nontender Ext: no edema CBC, BMP 05/06/17 07:31 05/08/17 06:30 Active Medications Acetaminophen (Tylenol -) 650 mg PO Q6H PRN PRN Reason: FEVER OR PAIN Albuterol Sulfate (Ventolin 0.083% Nebulizer Soln -) 1 amp NEB Q4H PRN PRN Reason: SHORT OF BREATH/WHEEZING Albuterol/Ipratropium (Duoneb -) 1 amp NEB Q4H PRN PRN Reason: SHORTNESS OF BREATH Arformoterol Tartrate (Brovana (Restricted To Pulmonology/Resp) -) 1 amp NEB RBID [facility] Last Admin: 05/09/17 08:59 Dose: 1 amp CEFTRIAXONE 1 G/50 ML PREMIX (Ceftriaxone 1 Gm-D5w Bag) 50 mls @ 100 mls/hr IVPB DAILY [facility] Last Admin: 05/09/17 11:11 Dose: 100 mls/hr Insulin Aspart (Novolog Vial Sliding Scale -) 1 vial SQ ACHS [facility] PRN Reason: Protocol Last Admin: 05/09/17 06:35 Dose: 8 units Losartan Potassium (Cozaar -) 50 mg PO DAILY [facility] Last Admin: 05/09/17 11:11 Dose: 50 mg Metformin HCl (Glucophage -) 500 mg PO TID@0700,1130,1630 [facility] Last Admin: 05/09/17 06:35 Dose: 500 mg Methylprednisolone Sodium Succinate (Solu-Medrol -) 60 mg IVPUSH Q6H-IV [facility] Last Admin: 05/09/17 11:10 Dose: 60 mg Mometasone Furoate (Asmanex 220mcg -) 2 puff IH BID [facility] Last Admin: 05/09/17 11:11 Dose: 2 puff Montelukast Sodium (Singulair -) 10 mg PO HS [facility] Last Admin: 05/08/17 21:16 Dose: 10 mg Tiotropium [place] (Spiriva -) 1 puff IH DAILY [facility] Last Admin: 05/09/17 11:11 Dose: 1 puff Zolpidem Tartrate (Ambien -) 5 mg PO HS PRN PRN Reason: INSOMNIA Last Admin: 05/08/17 21:16 Dose: 5 mg A/P Acute Asthma/COPD Exacerbation HTN DM Acute Kidney Injury improving - continue medrol at current dose - inhaled bronchodilators standing and PRN - singulair - monitor peak flow - O2 to keep SpO2 >90% - DVT prophylaxis
[2017-05-09] MEDS ORDERED: INSULIN (NOVOLOG) ASPART 100 UNITS/ML 10ML VIAL ONE (12:11)
[2017-05-09] MEDS: ALBUTEROL SO4 0.083% IH SOL 2.5 MG/3 ML VIAL.NEB. NEB PRN (17:00)
--- NOTE | 2017-05-09 17:15 | PN ---
Progress Note, Physician History of Present Illness: says still sob, cough with thick sputum - Current Medication List Current Medications: Active Medications Acetaminophen (Tylenol -) 650 mg PO Q6H PRN PRN Reason: FEVER OR PAIN Albuterol Sulfate (Ventolin 0.083% Nebulizer Soln -) 1 amp NEB Q4H PRN PRN Reason: SHORT OF BREATH/WHEEZING Last Admin: 05/09/17 17:00 Dose: 1 amp Albuterol/Ipratropium (Duoneb -) 1 amp NEB Q4H PRN PRN Reason: SHORTNESS OF BREATH Arformoterol Tartrate (Brovana (Restricted To Pulmonology/Resp) -) 1 amp NEB RBID [facility] Last Admin: 05/09/17 08:59 Dose: 1 amp CEFTRIAXONE 1 G/50 ML PREMIX (Ceftriaxone 1 Gm-D5w Bag) 50 mls @ 100 mls/hr IVPB DAILY [facility] Last Admin: 05/09/17 11:11 Dose: 100 mls/hr Insulin Aspart (Novolog Vial Sliding Scale -) 1 vial SQ ACHS [facility] PRN Reason: Protocol Last Admin: 05/09/17 12:16 Dose: 6 units Losartan Potassium (Cozaar -) 50 mg PO DAILY [facility] Last Admin: 05/09/17 11:11 Dose: 50 mg Metformin HCl (Glucophage -) 500 mg PO TID@0700,1130,1630 [facility] Last Admin: 05/09/17 12:16 Dose: 500 mg Methylprednisolone Sodium Succinate (Solu-Medrol -) 60 mg IVPUSH Q6H-IV [facility] Last Admin: 05/09/17 15:41 Dose: 60 mg Mometasone Furoate (Asmanex 220mcg -) 2 puff IH BID [facility] Last Admin: 05/09/17 11:11 Dose: 2 puff Montelukast Sodium (Singulair -) 10 mg PO HS [facility] Last Admin: 05/08/17 21:16 Dose: 10 mg Tiotropium [place] (Spiriva -) 1 puff IH DAILY [facility] Last Admin: 05/09/17 11:11 Dose: 1 puff - Objective Vital Signs: Vital Signs Temperature 97.8 F 05/09/17 15:02 Pulse Rate 86 05/09/17 15:02 Respiratory Rate 18 05/09/17 15:02 Blood Pressure 162/93 05/09/17 15:02 O2 Sat by Pulse Oximetry (%) 96 05/09/17 01:55 Constitutional: Yes: No Distress HENT: Yes: Atraumatic Neck: Yes: Supple Cardiovascular: Yes: Regular Rate and Rhythm Respiratory: Yes: Rhonchi, Wheezes Gastrointestinal: Yes: Normal Bowel Sounds Extremities: Yes: WNL Neurological: Yes: Alert, Oriented Labs: CBC, BMP 05/06/17 07:31 05/08/17 06:30 Problem List - Problems (1) COPD exacerbation Assessment/Plan: iv steroids, duo nebs Code(s): J44.1 - CHRONIC OBSTRUCTIVE PULMONARY DISEASE W (ACUTE) EXACERBATION (2) Diabetes Assessment/Plan: insulin sliding scale oral meds bgms Code(s): E11.9 - TYPE 2 DIABETES MELLITUS WITHOUT COMPLICATIONS (3) Hypercholesteremia Code(s): E78.0 - PURE HYPERCHOLESTEROLEMIA * DO NOT USE * (4) Hypertension Code(s): I10 - ESSENTIAL (PRIMARY) HYPERTENSION
[2017-05-09] MEDS: MONTELUKAST NA 10 MG TABLET PO SCH (22:05)
[2017-05-10] MEDS: ZOLPIDEM TARTRATE 5 MG TABLET PO PRN ×2 (00:44→23:31)
[2017-05-10] MEDS: methylPREDNISolone NA SUCC 40 MG/1 ML VIAL IVPUSH SCH ×4 (03:18→23:22)
[2017-05-10] MEDS: ALBUTEROL SO4 0.083% IH SOL 2.5 MG/3 ML VIAL.NEB. NEB PRN ×2 (05:48→17:37)
[2017-05-10] MEDS: INSULIN SLIDING SCALE (NOVOLOG) 1 VIAL SQ SCH ×4 (06:17→23:24)
[2017-05-10] MEDS: metFORMIN HCL 500 MG TABLET (FP) PO SCH ×3 (06:17→17:46)
[2017-05-10] MEDS: ARFORMOTEROL TARTRATE 15 MCG/2 ML VIAL NEB SCH ×2 (08:25→22:06)
[2017-05-10] MEDS ORDERED: PT OWN MED DRAWER 7, Y5N ONE ×3 (09:32→21:43)
[2017-05-10] MEDS: TIOTROPIUM BROMIDE 18 MCG/INH (DEVICE W/ 5 CAPSULES) IH SCH (10:42)
[2017-05-10] MEDS: MOMETASONE FUROATE 220 MCG/IH INHALER IH SCH ×2 (10:42→23:22)
[2017-05-10] MEDS: LOSARTAN POTASSIUM 50 MG TABLET (FP) PO SCH (10:43)
[2017-05-10] MEDS: CEFTRIAXONE 1 G/50 ML PREMIX 50 ML IVPB SCH (10:43)
[2017-05-10] MEDS ORDERED: INSULIN (NOVOLOG) ASPART 100 UNITS/ML 10ML VIAL ONE ×4 (12:16→18:07)
--- NOTE | 2017-05-10 13:18 | PN ---
Progress Note, Physician History of Present Illness: says still sob, cough with thick sputum - Current Medication List Current Medications: Active Medications Acetaminophen (Tylenol -) 650 mg PO Q6H PRN PRN Reason: FEVER OR PAIN Albuterol Sulfate (Ventolin 0.083% Nebulizer Soln -) 1 amp NEB Q4H PRN PRN Reason: SHORT OF BREATH/WHEEZING Last Admin: 05/10/17 05:48 Dose: 1 amp Albuterol/Ipratropium (Duoneb -) 1 amp NEB Q4H PRN PRN Reason: SHORTNESS OF BREATH Arformoterol Tartrate (Brovana (Restricted To Pulmonology/Resp) -) 1 amp NEB RBID [facility] Last Admin: 05/10/17 08:25 Dose: 1 amp CEFTRIAXONE 1 G/50 ML PREMIX (Ceftriaxone 1 Gm-D5w Bag) 50 mls @ 100 mls/hr IVPB DAILY [facility] Last Admin: 05/10/17 10:43 Dose: 100 mls/hr Insulin Aspart (Novolog Vial Sliding Scale -) 1 vial SQ ACHS [facility] PRN Reason: Protocol Last Admin: 05/10/17 12:19 Dose: 10 units Losartan Potassium (Cozaar -) 50 mg PO DAILY [facility] Last Admin: 05/10/17 10:43 Dose: 50 mg Metformin HCl (Glucophage -) 500 mg PO TID@0700,1130,1630 [facility] Last Admin: 05/10/17 12:19 Dose: 500 mg Methylprednisolone Sodium Succinate (Solu-Medrol -) 60 mg IVPUSH Q6H-IV [facility] Last Admin: 05/10/17 09:46 Dose: 60 mg Mometasone Furoate (Asmanex 220mcg -) 2 puff IH BID [facility] Last Admin: 05/10/17 10:42 Dose: 2 puff Montelukast Sodium (Singulair -) 10 mg PO HS [facility] Last Admin: 05/09/17 22:05 Dose: 10 mg Tiotropium [place] (Spiriva -) 1 puff IH DAILY [facility] Last Admin: 05/10/17 10:42 Dose: 1 puff Zolpidem Tartrate (Ambien -) 5 mg PO HS PRN Last Admin: 05/10/17 00:44 Dose: 5 mg - Objective Vital Signs: Vital Signs Temperature 97.9 F 05/10/17 05:30 Pulse Rate 83 05/10/17 10:28 Respiratory Rate 24 05/10/17 10:28 Blood Pressure 154/56 05/10/17 10:28 O2 Sat by Pulse Oximetry (%) 96 05/10/17 08:47 Constitutional: Yes: Calm HENT: Yes: Atraumatic Neck: Yes: Supple Cardiovascular: Yes: Regular Rate and Rhythm Respiratory: Yes: Rhonchi, Wheezes Gastrointestinal: Yes: Normal Bowel Sounds Extremities: Yes: WNL Edema: No Neurological: Yes: Alert, Oriented Labs: CBC, BMP 05/06/17 07:31 05/08/17 06:30 Problem List - Problems (1) COPD exacerbation Assessment/Plan: iv steroids, duo nebs Code(s): J44.1 - CHRONIC OBSTRUCTIVE PULMONARY DISEASE W (ACUTE) EXACERBATION (2) Diabetes Assessment/Plan: insulin sliding scale oral meds bgms Code(s): E11.9 - TYPE 2 DIABETES MELLITUS WITHOUT COMPLICATIONS (3) Hypercholesteremia Code(s): E78.0 - PURE HYPERCHOLESTEROLEMIA * DO NOT USE * (4) Hypertension Assessment/Plan: on meds stable Code(s): I10 - ESSENTIAL (PRIMARY) HYPERTENSION
--- NOTE | 2017-05-10 15:39 | PN ---
Progress Note (short form) - Note Progress Note: PULMONARY CONGESTED COUGH WITH WHEEZE VSS/AFEBRILE ANICTERIC RHONCHI/WHEEZES BILATERALLY S1S2 OBESE SOFT NOT TENDER NO EDEMA CXR/MEDS/NOTES/MICRO REVIEWED A/P Acute Asthma/COPD Exacerbation HTN DM Acute Kidney Injury improving - continue medrol at current dose - inhaled bronchodilators standing and PRN - singulair - monitor peak flow - O2 to keep SpO2 >90% - DVT prophylaxis [place] GONZALEZ MD
[2017-05-10] MEDS: MONTELUKAST NA 10 MG TABLET PO SCH (23:20)
[2017-05-11] MEDS: ALBUTEROL SO4 0.083% IH SOL 2.5 MG/3 ML VIAL.NEB. NEB PRN ×3 (02:18→13:34)
[2017-05-11] MEDS: methylPREDNISolone NA SUCC 40 MG/1 ML VIAL IVPUSH SCH ×3 (03:03→16:09)
[2017-05-11] MEDS: INSULIN SLIDING SCALE (NOVOLOG) 1 VIAL SQ SCH ×4 (06:49→22:22)
[2017-05-11] MEDS: metFORMIN HCL 500 MG TABLET (FP) PO SCH ×3 (06:49→17:57)
[2017-05-11 07:30] LABS: HEMATOCRIT 39.7 % (32.4-45.2); HEMOGLOBIN 12.6 GM/dL (10.7-15.3); MCHC 31.8 g/dl (32.0-36.0); MEAN PLT VOLUME 10.8 fl (7.5-11.1); PLATELET COUNT 178 K/MM3 (134-434); RBC 4.67 M/mm3 (3.60-5.2); RDW 15.3 % (11.6-15.6); WHITE BLOOD COUNT 14.7 K/mm3 (4.0-10.0)
[2017-05-11 07:47] LABS: ALBUMIN 3.2 g/dl (3.4-5.0); ANION GAP 7 (8-16); BLOOD UREA NITROGEN 32 mg/dL (7-18); CALCIUM 8.5 mg/dL (8.5-10.1); CHLORIDE 100 mmol/L (98-107); CO2 26 mmol/L (21-32); CREATININE 0.9 mg/dL (0.55-1.02); GLUCOSE,RANDOM 291 mg/dL (74-106); POTASSIUM 4.4 mmol/L (3.5-5.1); SGPT/ALT 33 U/L (12-78); SODIUM 133 mmol/L (136-145)
[2017-05-11 07:49] LABS: ALK PHOS 47 U/L (45-117); BILIRUBIN,TOTAL 0.5 mg/dL (0.2-1.0); SGOT/AST 12 U/L (15-37); TOT PROT 6.1 g/dl (6.4-8.2)
[2017-05-11] MEDS: ARFORMOTEROL TARTRATE 15 MCG/2 ML VIAL NEB SCH ×2 (09:06→21:10)
[2017-05-11 09:34] LABS: ANISOCYTOSIS 1+; MACROCYTOSIS 0; PLATELET ESTIMATE NORMAL
[2017-05-11] MEDS: CEFTRIAXONE 1 G/50 ML PREMIX 50 ML IVPB SCH (10:24)
[2017-05-11] MEDS: LOSARTAN POTASSIUM 50 MG TABLET (FP) PO SCH (10:25)
[2017-05-11] MEDS: MOMETASONE FUROATE 220 MCG/IH INHALER IH SCH ×2 (10:28→22:22)
[2017-05-11] MEDS: TIOTROPIUM BROMIDE 18 MCG/INH (DEVICE W/ 5 CAPSULES) IH SCH (10:28)
[2017-05-11] MEDS ORDERED: INSULIN (NOVOLOG) ASPART 100 UNITS/ML 10ML VIAL ONE (12:03)
[2017-05-11] MEDS ORDERED: PT OWN MED DRAWER 7, Y5N ONE (12:04)
[2017-05-11] MEDS ORDERED: FLUCONAZOLE 50 MG TABLET PO ONE (15:14)
--- NOTE | 2017-05-11 15:14 | PN ---
Progress Note (short form) - Note Progress Note: PULMONARY Breathing slightly improved but still dyspneic with minimal exertion, cough with thick productive sputum and wheezing. Ambulating in hallways. Last Vital Signs Temp Pulse Resp BP Pulse Ox 97.7 F 96 H 20 137/70 98 05/11/17 06:00 05/11/17 09:07 05/11/17 06:00 05/11/17 06:00 05/11/17 09:07 Gen: tachypneic with speaking Heart: RRR Lung: poor air movement, bilateral wheezes Abd: soft, nontender Ext: no edema CBC, BMP 05/11/17 07:00 05/11/17 07:00 Active Medications Acetaminophen (Tylenol -) 650 mg PO Q6H PRN PRN Reason: FEVER OR PAIN Albuterol Sulfate (Ventolin 0.083% Nebulizer Soln -) 1 amp NEB Q4H PRN PRN Reason: SHORT OF BREATH/WHEEZING Last Admin: 05/11/17 13:34 Dose: 1 amp Albuterol/Ipratropium (Duoneb -) 1 amp NEB Q4H PRN PRN Reason: SHORTNESS OF BREATH Arformoterol Tartrate (Brovana (Restricted To Pulmonology/Resp) -) 1 amp NEB RBID [facility] Last Admin: 05/11/17 09:06 Dose: 1 amp CEFTRIAXONE 1 G/50 ML PREMIX (Ceftriaxone 1 Gm-D5w Bag) 50 mls @ 100 mls/hr IVPB DAILY [facility] Last Admin: 05/11/17 10:24 Dose: 100 mls/hr Insulin Aspart (Novolog Vial Sliding Scale -) 1 vial SQ ACHS [facility] PRN Reason: Protocol Last Admin: 05/11/17 12:05 Dose: 8 units Losartan Potassium (Cozaar -) 50 mg PO DAILY [facility] Last Admin: 05/11/17 10:25 Dose: 50 mg Metformin HCl (Glucophage -) 500 mg PO TID@0700,1130,1630 [facility] Last Admin: 05/11/17 12:10 Dose: 500 mg Methylprednisolone Sodium Succinate (Solu-Medrol -) 60 mg IVPUSH Q6H-IV [facility] Last Admin: 05/11/17 10:00 Dose: 60 mg Mometasone Furoate (Asmanex 220mcg -) 2 puff IH BID [facility] Last Admin: 05/11/17 10:28 Dose: 2 puff Montelukast Sodium (Singulair -) 10 mg PO HS [facility] Last Admin: 05/10/17 23:20 Dose: 10 mg Tiotropium [place] (Spiriva -) 1 puff IH DAILY [facility] Last Admin: 05/11/17 10:28 Dose: 1 puff Zolpidem Tartrate (Ambien -) 5 mg PO HS PRN Last Admin: 05/10/17 23:31 Dose: 5 mg A/P Acute Asthma/COPD Exacerbation HTN DM Acute Kidney Injury improving - will decrease medrol to q8h - inhaled bronchodilators standing and PRN - singulair - monitor peak flow - will start fluconazole for reported yeast infection - O2 to keep SpO2 >90% - DVT prophylaxis
--- NOTE | 2017-05-11 17:58 | PN ---
Progress Note, Physician History of Present Illness: says still sob, cough with thick sputum - Current Medication List Current Medications: Active Medications Acetaminophen (Tylenol -) 650 mg PO Q6H PRN PRN Reason: FEVER OR PAIN Albuterol Sulfate (Ventolin 0.083% Nebulizer Soln -) 1 amp NEB Q4H PRN PRN Reason: SHORT OF BREATH/WHEEZING Last Admin: 05/11/17 13:34 Dose: 1 amp Albuterol/Ipratropium (Duoneb -) 1 amp NEB Q4H PRN PRN Reason: SHORTNESS OF BREATH Arformoterol Tartrate (Brovana (Restricted To Pulmonology/Resp) -) 1 amp NEB RBID [facility] Last Admin: 05/11/17 09:06 Dose: 1 amp CEFTRIAXONE 1 G/50 ML PREMIX (Ceftriaxone 1 Gm-D5w Bag) 50 mls @ 100 mls/hr IVPB DAILY [facility] Last Admin: 05/11/17 10:24 Dose: 100 mls/hr Insulin Aspart (Novolog Vial Sliding Scale -) 1 vial SQ ACHS [facility] PRN Reason: Protocol Last Admin: 05/11/17 12:05 Dose: 8 units Losartan Potassium (Cozaar -) 50 mg PO DAILY [facility] Last Admin: 05/11/17 10:25 Dose: 50 mg Metformin HCl (Glucophage -) 500 mg PO TID@0700,1130,1630 [facility] Last Admin: 05/11/17 12:10 Dose: 500 mg Methylprednisolone Sodium Succinate (Solu-Medrol -) 60 mg IVPUSH Q8H-IV [facility] Miconazole Nitrate (Monistat-7 Vaginal Suppository -) 100 mg PV HS [facility] Mometasone Furoate (Asmanex 220mcg -) 2 puff IH BID [facility] Last Admin: 05/11/17 10:28 Dose: 2 puff Montelukast Sodium (Singulair -) 10 mg PO HS [facility] Last Admin: 05/10/17 23:20 Dose: 10 mg Tiotropium [place] (Spiriva -) 1 puff IH DAILY [facility] Last Admin: 05/11/17 10:28 Dose: 1 puff Zolpidem Tartrate (Ambien -) 5 mg PO HS PRN Last Admin: 05/10/17 23:31 Dose: 5 mg - Objective Vital Signs: Vital Signs Temperature 97.4 F L 05/11/17 14:18 Pulse Rate 85 05/11/17 14:18 Respiratory Rate 22 05/11/17 14:18 Blood Pressure 148/76 05/11/17 14:18 O2 Sat by Pulse Oximetry (%) 98 05/11/17 09:07 Constitutional: Yes: No Distress HENT: Yes: Atraumatic Neck: Yes: Supple Cardiovascular: Yes: Regular Rate and Rhythm Respiratory: Yes: Rhonchi, Wheezes Gastrointestinal: Yes: Normal Bowel Sounds Extremities: Yes: WNL Neurological: Yes: Alert, Oriented Labs: CBC, BMP 05/11/17 07:00 05/11/17 07:00 Problem List - Problems (1) COPD exacerbation Assessment/Plan: iv steroids, duo nebs Code(s): J44.1 - CHRONIC OBSTRUCTIVE PULMONARY DISEASE W (ACUTE) EXACERBATION (2) Diabetes Assessment/Plan: insulin sliding scale oral meds bgms Code(s): E11.9 - TYPE 2 DIABETES MELLITUS WITHOUT COMPLICATIONS (3) Hypercholesteremia Code(s): E78.0 - PURE HYPERCHOLESTEROLEMIA * DO NOT USE * (4) Hypertension Assessment/Plan: on meds stable Code(s): I10 - ESSENTIAL (PRIMARY) HYPERTENSION
[2017-05-11] MEDS: methylPREDNISolone NA SUCC 125 MG/2 ML VIAL IVPUSH SCH (18:03)
[2017-05-11] MEDS: ALBUTEROL SO4 2.5/IPRATROPIUM 0.5 INH SOL 3 ML VIAL.NEB. NEB PRN (18:40)
[2017-05-11] MEDS: MICONAZOLE NITRATE 100 MG SUPP SUPP.VAG PV SCH (22:21)
[2017-05-11] MEDS: MONTELUKAST NA 10 MG TABLET PO SCH (22:22)
[2017-05-11] MEDS: ZOLPIDEM TARTRATE 5 MG TABLET PO PRN (23:24)
[2017-05-12] MEDS: methylPREDNISolone NA SUCC 125 MG/2 ML VIAL IVPUSH SCH ×3 (02:01→17:22)
[2017-05-12] MEDS: ALBUTEROL SO4 0.083% IH SOL 2.5 MG/3 ML VIAL.NEB. NEB PRN ×2 (04:30→12:25)
[2017-05-12] MEDS: INSULIN SLIDING SCALE (NOVOLOG) 1 VIAL SQ SCH ×4 (06:40→21:36)
[2017-05-12] MEDS: metFORMIN HCL 500 MG TABLET (FP) PO SCH ×3 (06:41→17:21)
[2017-05-12] MEDS ORDERED: INSULIN DETEMIR 100 UNITS/ML MDV SQ ONE (06:56)
[2017-05-12] MEDS ORDERED: INSULIN (NOVOLOG) ASPART 100 UNITS/ML 10ML VIAL ONE ×2 (06:56→11:13)
[2017-05-12] MEDS: ARFORMOTEROL TARTRATE 15 MCG/2 ML VIAL NEB SCH ×2 (09:00→21:20)
[2017-05-12] MEDS ORDERED: PT OWN MED DRAWER 7, Y5N ONE ×2 (09:37→17:03)
[2017-05-12] MEDS: MOMETASONE FUROATE 220 MCG/IH INHALER IH SCH ×2 (09:40→21:35)
[2017-05-12] MEDS: LOSARTAN POTASSIUM 50 MG TABLET (FP) PO SCH (09:40)
[2017-05-12] MEDS: TIOTROPIUM BROMIDE 18 MCG/INH (DEVICE W/ 5 CAPSULES) IH SCH (09:41)
[2017-05-12] MEDS: CEFTRIAXONE 1 G/50 ML PREMIX 50 ML IVPB SCH (09:41)
--- NOTE | 2017-05-12 14:12 | PN ---
Progress Note (short form) - Note Progress Note: PULMONARY States her chest finally starting to feel looser. Still with cough and wheezing. Last Vital Signs Temp Pulse Resp BP Pulse Ox 97.5 F L 92 H 18 141/69 96 05/12/17 09:26 05/12/17 09:26 05/12/17 09:26 05/12/17 09:26 05/12/17 09:00 Gen: tachypneic with speaking Heart: RRR Lung: poor air movement, bilateral wheezes Abd: soft, nontender Ext: no edema CBC, BMP 05/11/17 07:00 05/11/17 07:00 Active Medications Acetaminophen (Tylenol -) 650 mg PO Q6H PRN PRN Reason: FEVER OR PAIN Albuterol Sulfate (Ventolin 0.083% Nebulizer Soln -) 1 amp NEB Q4H PRN PRN Reason: SHORT OF BREATH/WHEEZING Last Admin: 05/12/17 12:25 Dose: 1 amp Albuterol/Ipratropium (Duoneb -) 1 amp NEB Q4H PRN PRN Reason: SHORTNESS OF BREATH Last Admin: 05/11/17 18:40 Dose: 1 amp Arformoterol Tartrate (Brovana (Restricted To Pulmonology/Resp) -) 1 amp NEB RBID [facility] Last Admin: 05/12/17 09:00 Dose: 1 amp CEFTRIAXONE 1 G/50 ML PREMIX (Ceftriaxone 1 Gm-D5w Bag) 50 mls @ 100 mls/hr IVPB DAILY [facility] Last Admin: 05/12/17 09:41 Dose: 100 mls/hr Insulin Aspart (Novolog Vial Sliding Scale -) 1 vial SQ ACHS [facility] PRN Reason: Protocol Last Admin: 05/12/17 11:48 Dose: 8 units Losartan Potassium (Cozaar -) 50 mg PO DAILY [facility] Last Admin: 05/12/17 09:40 Dose: 50 mg Metformin HCl (Glucophage -) 500 mg PO TID@0700,1130,1630 [facility] Last Admin: 05/12/17 11:49 Dose: 500 mg Methylprednisolone Sodium Succinate (Solu-Medrol -) 60 mg IVPUSH Q8H-IV [facility] Last Admin: 05/12/17 09:40 Dose: 60 mg Miconazole Nitrate (Monistat-7 Vaginal Suppository -) 100 mg PV HS [facility] Last Admin: 05/11/17 22:21 Dose: 100 mg Mometasone Furoate (Asmanex 220mcg -) 2 puff IH BID [facility] Last Admin: 05/12/17 09:40 Dose: 2 puff Montelukast Sodium (Singulair -) 10 mg PO HS [facility] Last Admin: 05/11/17 22:22 Dose: 10 mg Tiotropium [place] (Spiriva -) 1 puff IH DAILY [facility] Last Admin: 05/12/17 09:41 Dose: 1 puff Zolpidem Tartrate (Ambien -) 5 mg PO HS PRN Last Admin: 05/11/17 23:24 Dose: 5 mg A/P Acute Asthma/COPD Exacerbation HTN DM Acute Kidney Injury improving - continue medrol at q8h - inhaled bronchodilators standing and PRN - singulair - monitor peak flow - fluconazole for reported yeast infection - O2 to keep SpO2 >90% - DVT prophylaxis
[2017-05-12] MEDS: ALBUTEROL SO4 2.5/IPRATROPIUM 0.5 INH SOL 3 ML VIAL.NEB. NEB PRN (15:45)
--- NOTE | 2017-05-12 19:01 | PN ---
Progress Note, Physician History of Present Illness: still wheezing - Current Medication List Current Medications: Active Medications Acetaminophen (Tylenol -) 650 mg PO Q6H PRN PRN Reason: FEVER OR PAIN Albuterol Sulfate (Ventolin 0.083% Nebulizer Soln -) 1 amp NEB Q4H PRN PRN Reason: SHORT OF BREATH/WHEEZING Last Admin: 05/12/17 12:25 Dose: 1 amp Albuterol/Ipratropium (Duoneb -) 1 amp NEB Q4H PRN PRN Reason: SHORTNESS OF BREATH Last Admin: 05/12/17 15:45 Dose: 1 amp Arformoterol Tartrate (Brovana (Restricted To Pulmonology/Resp) -) 1 amp NEB RBID [facility] Last Admin: 05/12/17 09:00 Dose: 1 amp Insulin Aspart (Novolog Vial Sliding Scale -) 1 vial SQ ACHS [facility] PRN Reason: Protocol Last Admin: 05/12/17 17:21 Dose: 10 units Losartan Potassium (Cozaar -) 50 mg PO DAILY [facility] Last Admin: 05/12/17 09:40 Dose: 50 mg Metformin HCl (Glucophage -) 500 mg PO TID@0700,1130,1630 [facility] Last Admin: 05/12/17 17:21 Dose: 500 mg Methylprednisolone Sodium Succinate (Solu-Medrol -) 60 mg IVPUSH Q8H-IV [facility] Last Admin: 05/12/17 17:22 Dose: 60 mg Miconazole Nitrate (Monistat-7 Vaginal Suppository -) 100 mg PV HS [facility] Last Admin: 05/11/17 22:21 Dose: 100 mg Mometasone Furoate (Asmanex 220mcg -) 2 puff IH BID [facility] Last Admin: 05/12/17 09:40 Dose: 2 puff Montelukast Sodium (Singulair -) 10 mg PO HS [facility] Last Admin: 05/11/17 22:22 Dose: 10 mg Tiotropium [place] (Spiriva -) 1 puff IH DAILY [facility] Last Admin: 05/12/17 09:41 Dose: 1 puff Zolpidem Tartrate (Ambien -) 5 mg PO HS PRN Last Admin: 05/11/17 23:24 Dose: 5 mg - Objective Vital Signs: Vital Signs Temperature 97.6 F 05/12/17 15:05 Pulse Rate 93 H 05/12/17 15:45 Respiratory Rate 18 05/12/17 15:05 Blood Pressure 144/68 05/12/17 15:05 O2 Sat by Pulse Oximetry (%) 98 05/12/17 15:45 Constitutional: Yes: No Distress HENT: Yes: Atraumatic Neck: Yes: Supple Cardiovascular: Yes: Regular Rate and Rhythm Respiratory: Yes: Wheezes Gastrointestinal: Yes: Normal Bowel Sounds Extremities: Yes: WNL Edema: No Peripheral Pulses WNL: Yes Neurological: Yes: Alert, Oriented Labs: CBC, BMP 05/11/17 07:00 05/11/17 07:00 Problem List - Problems (1) COPD exacerbation Assessment/Plan: iv steroids, duo nebs will dc iv abx...got 7 days Code(s): J44.1 - CHRONIC OBSTRUCTIVE PULMONARY DISEASE W (ACUTE) EXACERBATION (2) Diabetes Assessment/Plan: insulin sliding scale oral meds bgms Code(s): E11.9 - TYPE 2 DIABETES MELLITUS WITHOUT COMPLICATIONS (3) Hypercholesteremia Code(s): E78.0 - PURE HYPERCHOLESTEROLEMIA * DO NOT USE * (4) Hypertension Assessment/Plan: on meds stable Code(s): I10 - ESSENTIAL (PRIMARY) HYPERTENSION
[2017-05-12] MEDS: MONTELUKAST NA 10 MG TABLET PO SCH (21:36)
[2017-05-12] MEDS: MICONAZOLE NITRATE 100 MG SUPP SUPP.VAG PV SCH (21:37)
[2017-05-12] MEDS: ZOLPIDEM TARTRATE 5 MG TABLET PO PRN (22:54)
[2017-05-13] MEDS: methylPREDNISolone NA SUCC 125 MG/2 ML VIAL IVPUSH SCH ×3 (01:24→18:08)
[2017-05-13] MEDS: ALBUTEROL SO4 2.5/IPRATROPIUM 0.5 INH SOL 3 ML VIAL.NEB. NEB PRN (02:10)
[2017-05-13] MEDS: metFORMIN HCL 500 MG TABLET (FP) PO SCH ×3 (06:46→18:02)
[2017-05-13] MEDS: INSULIN SLIDING SCALE (NOVOLOG) 1 VIAL SQ SCH ×4 (06:47→23:01)
[2017-05-13] MEDS: ARFORMOTEROL TARTRATE 15 MCG/2 ML VIAL NEB SCH ×2 (08:35→21:35)
[2017-05-13] MEDS: LOSARTAN POTASSIUM 50 MG TABLET (FP) PO SCH (10:53)
[2017-05-13] MEDS: MOMETASONE FUROATE 220 MCG/IH INHALER IH SCH ×2 (10:54→22:59)
[2017-05-13] MEDS: TIOTROPIUM BROMIDE 18 MCG/INH (DEVICE W/ 5 CAPSULES) IH SCH (10:54)
[2017-05-13] MEDS ORDERED: PT OWN MED DRAWER 7, Y5N ONE ×2 (11:01→18:27)
[2017-05-13] MEDS ORDERED: INSULIN (NOVOLOG) ASPART 100 UNITS/ML 10ML VIAL ONE ×2 (11:17→18:27)
--- NOTE | 2017-05-13 14:56 | PN ---
Progress Note, Physician History of Present Illness: pulmonary alert,still dyspneic,+ wheezing.+cough. peak flow 200cc - Current Medication List Current Medications: Active Medications Acetaminophen (Tylenol -) 650 mg PO Q6H PRN PRN Reason: FEVER OR PAIN Albuterol Sulfate (Ventolin 0.083% Nebulizer Soln -) 1 amp NEB Q4H PRN PRN Reason: SHORT OF BREATH/WHEEZING Last Admin: 05/12/17 12:25 Dose: 1 amp Albuterol/Ipratropium (Duoneb -) 1 amp NEB Q4H PRN PRN Reason: SHORTNESS OF BREATH Last Admin: 05/13/17 02:10 Dose: 1 amp Arformoterol Tartrate (Brovana (Restricted To Pulmonology/Resp) -) 1 amp NEB RBID [facility] Last Admin: 05/13/17 08:35 Dose: 1 amp Insulin Aspart (Novolog Vial Sliding Scale -) 1 vial SQ ACHS [facility] PRN Reason: Protocol Last Admin: 05/13/17 11:21 Dose: 6 units Losartan Potassium (Cozaar -) 50 mg PO DAILY [facility] Last Admin: 05/13/17 10:53 Dose: 50 mg Metformin HCl (Glucophage -) 500 mg PO TID@0700,1130,1630 [facility] Last Admin: 05/13/17 11:21 Dose: 500 mg Methylprednisolone Sodium Succinate (Solu-Medrol -) 60 mg IVPUSH Q8H-IV [facility] Last Admin: 05/13/17 10:54 Dose: 60 mg Miconazole Nitrate (Monistat-7 Vaginal Suppository -) 100 mg PV HS [facility] Last Admin: 05/12/17 21:37 Dose: 100 mg Mometasone Furoate (Asmanex 220mcg -) 2 puff IH BID [facility] Last Admin: 05/13/17 10:54 Dose: 2 puff Montelukast Sodium (Singulair -) 10 mg PO HS [facility] Last Admin: 05/12/17 21:36 Dose: 10 mg Tiotropium [place] (Spiriva -) 1 puff IH DAILY [facility] Last Admin: 05/13/17 10:54 Dose: 1 puff - Objective Vital Signs: Vital Signs Temperature 97.9 F 05/13/17 06:00 Pulse Rate 84 05/13/17 10:00 Respiratory Rate 18 05/13/17 10:00 Blood Pressure 154/54 05/13/17 10:00 O2 Sat by Pulse Oximetry (%) 97 05/13/17 09:00 Constitutional: Yes: Well Nourished, Calm Eyes: Yes: WNL HENT: Yes: WNL Neck: Yes: WNL Cardiovascular: Yes: Regular Rate and Rhythm, S1, S2 Respiratory: Yes: Wheezes (yuridia wheezes) Gastrointestinal: Yes: Normal Bowel Sounds, Soft Extremities: Yes: WNL Edema: Yes Labs: CBC, BMP Problem List - Problems (1) Asthma exacerbation Code(s): J45.901 - UNSPECIFIED ASTHMA WITH (ACUTE) EXACERBATION (2) Asthma exacerbation in COPD Code(s): J44.1 - CHRONIC OBSTRUCTIVE PULMONARY DISEASE W (ACUTE) EXACERBATION; J45.901 - UNSPECIFIED ASTHMA WITH (ACUTE) EXACERBATION (3) Hypercholesteremia Code(s): E78.0 - PURE HYPERCHOLESTEROLEMIA * DO NOT USE * (4) Hypertension Code(s): I10 - ESSENTIAL (PRIMARY) HYPERTENSION (5) Osteoarthritis Code(s): M19.90 - UNSPECIFIED OSTEOARTHRITIS, UNSPECIFIED SITE (6) Diabetes Code(s): E11.9 - TYPE 2 DIABETES MELLITUS WITHOUT COMPLICATIONS Assessment/Plan IMP ASTHMA/COPD EXACERBATION HTN HLD RON IMPROVING NIDDM PLAN IV STEROIDS SAME DOSE INHALED BRONCHODILATORS/INHALED STEROIDS O2 PRN MONITOR PEAK FLOW MONITOR ESE BROWN Problem List - Problems (1) Asthma exacerbation Code(s): J45.901 - UNSPECIFIED ASTHMA WITH (ACUTE) EXACERBATION (2) Asthma exacerbation in COPD Code(s): J44.1 - CHRONIC OBSTRUCTIVE PULMONARY DISEASE W (ACUTE) EXACERBATION; J45.901 - UNSPECIFIED ASTHMA WITH (ACUTE) EXACERBATION (3) Hypercholesteremia Code(s): E78.0 - PURE HYPERCHOLESTEROLEMIA * DO NOT USE * (4) Hypertension Code(s): I10 - ESSENTIAL (PRIMARY) HYPERTENSION (5) Osteoarthritis Code(s): M19.90 - UNSPECIFIED OSTEOARTHRITIS, UNSPECIFIED SITE (6) Diabetes Code(s): E11.9 - TYPE 2 DIABETES MELLITUS WITHOUT COMPLICATIONS
--- NOTE | 2017-05-13 15:26 | PN ---
Progress Note, Physician History of Present Illness: still wheezing - Current Medication List Current Medications: Active Medications Acetaminophen (Tylenol -) 650 mg PO Q6H PRN PRN Reason: FEVER OR PAIN Albuterol Sulfate (Ventolin 0.083% Nebulizer Soln -) 1 amp NEB Q4H PRN PRN Reason: SHORT OF BREATH/WHEEZING Last Admin: 05/12/17 12:25 Dose: 1 amp Arformoterol Tartrate (Brovana (Restricted To Pulmonology/Resp) -) 1 amp NEB RBID [facility] Last Admin: 05/13/17 08:35 Dose: 1 amp Insulin Aspart (Novolog Vial Sliding Scale -) 1 vial SQ ACHS [facility] PRN Reason: Protocol Last Admin: 05/13/17 11:21 Dose: 6 units Losartan Potassium (Cozaar -) 50 mg PO DAILY [facility] Last Admin: 05/13/17 10:53 Dose: 50 mg Metformin HCl (Glucophage -) 500 mg PO TID@0700,1130,1630 [facility] Last Admin: 05/13/17 11:21 Dose: 500 mg Methylprednisolone Sodium Succinate (Solu-Medrol -) 60 mg IVPUSH Q8H-IV [facility] Last Admin: 05/13/17 10:54 Dose: 60 mg Miconazole Nitrate (Monistat-7 Vaginal Suppository -) 100 mg PV [facility] Last Admin: 05/12/17 21:37 Dose: 100 mg Mometasone Furoate (Asmanex 220mcg -) 2 puff IH BID [facility] Last Admin: 05/13/17 10:54 Dose: 2 puff Montelukast Sodium (Singulair -) 10 mg PO HS [facility] Last Admin: 05/12/17 21:36 Dose: 10 mg Tiotropium [place] (Spiriva -) 1 puff IH DAILY [facility] Last Admin: 05/13/17 10:54 Dose: 1 puff - Objective Vital Signs: Vital Signs Temperature 97.9 F 05/13/17 06:00 Pulse Rate 84 05/13/17 10:00 Respiratory Rate 18 05/13/17 10:00 Blood Pressure 154/54 05/13/17 10:00 O2 Sat by Pulse Oximetry (%) 97 05/13/17 09:00 Constitutional: Yes: No Distress HENT: Yes: Atraumatic Neck: Yes: Supple Cardiovascular: Yes: Regular Rate and Rhythm Respiratory: Yes: Wheezes (b/l) Gastrointestinal: Yes: Normal Bowel Sounds Extremities: Yes: WNL Neurological: Yes: Alert, Oriented Labs: CBC, BMP 05/11/17 07:00 05/11/17 07:00 Problem List - Problems (1) COPD exacerbation Assessment/Plan: iv steroids, duo nebs Code(s): J44.1 - CHRONIC OBSTRUCTIVE PULMONARY DISEASE W (ACUTE) EXACERBATION (2) Diabetes Assessment/Plan: insulin sliding scale oral meds bgms Code(s): E11.9 - TYPE 2 DIABETES MELLITUS WITHOUT COMPLICATIONS (3) Hypercholesteremia Code(s): E78.0 - PURE HYPERCHOLESTEROLEMIA * DO NOT USE * (4) Hypertension Assessment/Plan: on meds stable Code(s): I10 - ESSENTIAL (PRIMARY) HYPERTENSION
[2017-05-13] MEDS: MICONAZOLE NITRATE 100 MG SUPP SUPP.VAG PV SCH (22:59)
[2017-05-13] MEDS: diphenhydrAMINE HCL 25 MG CAPSULE (FP) PO PRN (23:00)
[2017-05-13] MEDS: MONTELUKAST NA 10 MG TABLET PO SCH (23:00)
[2017-05-14] MEDS: ALBUTEROL SO4 0.083% IH SOL 2.5 MG/3 ML VIAL.NEB. NEB PRN ×4 (02:30→16:00)
[2017-05-14] MEDS: methylPREDNISolone NA SUCC 125 MG/2 ML VIAL IVPUSH SCH ×3 (02:31→18:34)
[2017-05-14] MEDS: metFORMIN HCL 500 MG TABLET (FP) PO SCH ×3 (06:32→18:31)
[2017-05-14] MEDS: INSULIN SLIDING SCALE (NOVOLOG) 1 VIAL SQ SCH ×4 (06:33→21:58)
[2017-05-14] MEDS ORDERED: PT OWN MED DRAWER 7, Y5N ONE ×7 (07:11→21:40)
[2017-05-14] MEDS: ARFORMOTEROL TARTRATE 15 MCG/2 ML VIAL NEB SCH ×2 (08:03→20:00)
[2017-05-14] MEDS: LOSARTAN POTASSIUM 50 MG TABLET (FP) PO SCH (10:36)
[2017-05-14] MEDS: MOMETASONE FUROATE 220 MCG/IH INHALER IH SCH ×2 (10:40→22:00)
[2017-05-14] MEDS ORDERED: INSULIN (NOVOLOG) ASPART 100 UNITS/ML 10ML VIAL ONE ×4 (11:20→21:41)
[2017-05-14] MEDS: TIOTROPIUM BROMIDE 18 MCG/INH (DEVICE W/ 5 CAPSULES) IH SCH (12:05)
--- NOTE | 2017-05-14 12:28 | PN ---
Progress Note, Physician History of Present Illness: pulmonary alert,still congested,+cough,dyspneic with exertion - Current Medication List Current Medications: Active Medications Acetaminophen (Tylenol -) 650 mg PO Q6H PRN PRN Reason: FEVER OR PAIN Albuterol Sulfate (Ventolin 0.083% Nebulizer Soln -) 1 amp NEB Q4H PRN PRN Reason: SHORT OF BREATH/WHEEZING Last Admin: 05/14/17 12:19 Dose: 1 amp Arformoterol Tartrate (Brovana (Restricted To Pulmonology/Resp) -) 1 amp NEB RBID [facility] Last Admin: 05/14/17 08:03 Dose: 1 amp Diphenhydramine HCl (Benadryl -) 25 mg PO Q6H PRN PRN Reason: ITCHING Last Admin: 05/13/17 23:00 Dose: 25 mg Insulin Aspart (Novolog Vial Sliding Scale -) 1 vial SQ ACHS [facility] PRN Reason: Protocol Last Admin: 05/14/17 12:06 Dose: 10 units Losartan Potassium (Cozaar -) 50 mg PO DAILY [facility] Last Admin: 05/14/17 10:36 Dose: 50 mg Metformin HCl (Glucophage -) 500 mg PO TID@0700,1130,1630 [facility] Last Admin: 05/14/17 12:05 Dose: 500 mg Methylprednisolone Sodium Succinate (Solu-Medrol -) 60 mg IVPUSH Q8H-IV [facility] Last Admin: 05/14/17 10:34 Dose: 60 mg Miconazole Nitrate (Monistat-7 Vaginal Suppository -) 100 mg PV [facility] Stop: 05/17/17 22:01 Last Admin: 05/13/17 22:59 Dose: 100 mg Mometasone Furoate (Asmanex 220mcg -) 2 puff IH BID [facility] Last Admin: 05/14/17 10:40 Dose: 2 puff Montelukast Sodium (Singulair -) 10 mg PO HS [facility] Last Admin: 05/13/17 23:00 Dose: 10 mg Tiotropium [place] (Spiriva -) 1 puff IH DAILY [facility] Last Admin: 05/14/17 12:05 Dose: 1 puff - Objective Vital Signs: Vital Signs Temperature 98.4 F 05/14/17 06:00 Pulse Rate 87 05/14/17 06:00 Respiratory Rate 18 05/14/17 06:00 Blood Pressure 141/66 05/14/17 06:00 O2 Sat by Pulse Oximetry (%) 95 05/13/17 21:00 Constitutional: Yes: Well Nourished, No Distress Eyes: Yes: WNL HENT: Yes: WNL Neck: Yes: WNL Cardiovascular: Yes: Regular Rate and Rhythm, S1, S2 Respiratory: Yes: Wheezes (bilateral wheezes) Gastrointestinal: Yes: Normal Bowel Sounds, Soft Extremities: Yes: WNL Edema: Yes Labs: CBC, BMP Problem List - Problems (1) Asthma exacerbation Code(s): J45.901 - UNSPECIFIED ASTHMA WITH (ACUTE) EXACERBATION (2) Asthma exacerbation in COPD Code(s): J44.1 - CHRONIC OBSTRUCTIVE PULMONARY DISEASE W (ACUTE) EXACERBATION; J45.901 - UNSPECIFIED ASTHMA WITH (ACUTE) EXACERBATION (3) Hypercholesteremia Code(s): E78.0 - PURE HYPERCHOLESTEROLEMIA * DO NOT USE * (4) Hypertension Code(s): I10 - ESSENTIAL (PRIMARY) HYPERTENSION (5) Osteoarthritis Code(s): M19.90 - UNSPECIFIED OSTEOARTHRITIS, UNSPECIFIED SITE (6) Diabetes Code(s): E11.9 - TYPE 2 DIABETES MELLITUS WITHOUT COMPLICATIONS Assessment/Plan IMP ASTHMA/COPD EXACERBATION HTN HLD RON IMPROVING NIDDM PLAN IV STEROIDS SAME DOSE INHALED BRONCHODILATORS/INHALED STEROIDS O2 PRN MONITOR PEAK FLOW MONITOR LYTES CHEST X-RAY START THEOPHYLLINE DR BROWN Problem List - Problems (1) Asthma exacerbation Code(s): J45.901 - UNSPECIFIED ASTHMA WITH (ACUTE) EXACERBATION (2) Asthma exacerbation in COPD Code(s): J44.1 - CHRONIC OBSTRUCTIVE PULMONARY DISEASE W (ACUTE) EXACERBATION; J45.901 - UNSPECIFIED ASTHMA WITH (ACUTE) EXACERBATION (3) Hypercholesteremia Code(s): E78.0 - PURE HYPERCHOLESTEROLEMIA * DO NOT USE * (4) Hypertension Code(s): I10 - ESSENTIAL (PRIMARY) HYPERTENSION (5) Osteoarthritis Code(s): M19.90 - UNSPECIFIED OSTEOARTHRITIS, UNSPECIFIED SITE (6) Diabetes Code(s): E11.9 - TYPE 2 DIABETES MELLITUS WITHOUT COMPLICATIONS
[2017-05-14] MEDS ORDERED: THEOPHYLLINE ANHYDROUS 200 MG PO SCH (12:30)
--- NOTE | 2017-05-14 16:50 | PN ---
Progress Note, Physician History of Present Illness: still wheezing - Current Medication List Current Medications: Active Medications Acetaminophen (Tylenol -) 650 mg PO Q6H PRN PRN Reason: FEVER OR PAIN Albuterol Sulfate (Ventolin 0.083% Nebulizer Soln -) 1 amp NEB Q4H PRN PRN Reason: SHORT OF BREATH/WHEEZING Last Admin: 05/14/17 16:00 Dose: 1 amp Arformoterol Tartrate (Brovana (Restricted To Pulmonology/Resp) -) 1 amp NEB RBID [facility] Last Admin: 05/14/17 08:03 Dose: 1 amp Diphenhydramine HCl (Benadryl -) 25 mg PO Q6H PRN PRN Reason: ITCHING Last Admin: 05/13/17 23:00 Dose: 25 mg Insulin Aspart (Novolog Vial Sliding Scale -) 1 vial SQ ACHS [facility] PRN Reason: Protocol Last Admin: 05/14/17 12:06 Dose: 10 units Losartan Potassium (Cozaar -) 50 mg PO DAILY [facility] Last Admin: 05/14/17 10:36 Dose: 50 mg Metformin HCl (Glucophage -) 500 mg PO TID@0700,1130,1630 [facility] Last Admin: 05/14/17 12:05 Dose: 500 mg Methylprednisolone Sodium Succinate (Solu-Medrol -) 60 mg IVPUSH Q8H-IV [facility] Last Admin: 05/14/17 10:34 Dose: 60 mg Miconazole Nitrate (Monistat-7 Vaginal Suppository -) 100 mg PV [facility] Stop: 05/17/17 22:01 Last Admin: 05/13/17 22:59 Dose: 100 mg Mometasone Furoate (Asmanex 220mcg -) 2 puff IH BID [facility] Last Admin: 05/14/17 10:40 Dose: 2 puff Montelukast Sodium (Singulair -) 10 mg PO [facility] Last Admin: 05/13/17 23:00 Dose: 10 mg Theophylline ([place]-24) 400 mg PO DAILY [facility] Tiotropium [place] (Spiriva -) 1 puff IH DAILY [facility] Last Admin: 05/14/17 12:05 Dose: 1 puff - Objective Vital Signs: Vital Signs Temperature 97.8 F 05/14/17 14:32 Pulse Rate 91 H 05/14/17 14:32 Respiratory Rate 20 05/14/17 14:32 Blood Pressure 156/72 05/14/17 14:32 O2 Sat by Pulse Oximetry (%) 96 05/14/17 09:00 Constitutional: Yes: No Distress HENT: Yes: Atraumatic Neck: Yes: Supple Cardiovascular: Yes: Regular Rate and Rhythm Respiratory: Yes: Rhonchi, Wheezes Gastrointestinal: Yes: Normal Bowel Sounds Extremities: Yes: WNL Edema: No Neurological: Yes: Alert, Oriented Labs: CBC, BMP 05/11/17 07:00 05/11/17 07:00 Problem List - Problems (1) COPD exacerbation Assessment/Plan: iv steroids, duo nebs Code(s): J44.1 - CHRONIC OBSTRUCTIVE PULMONARY DISEASE W (ACUTE) EXACERBATION (2) Diabetes Assessment/Plan: insulin sliding scale oral meds bgms Code(s): E11.9 - TYPE 2 DIABETES MELLITUS WITHOUT COMPLICATIONS (3) Hypercholesteremia Code(s): E78.0 - PURE HYPERCHOLESTEROLEMIA * DO NOT USE * (4) Hypertension Assessment/Plan: on meds stable Code(s): I10 - ESSENTIAL (PRIMARY) HYPERTENSION
[2017-05-14] MEDS: THEOPHYLLINE ANHYDROUS 200 MG CAP.ER.24H PO SCH (18:35)
[2017-05-14] MEDS: MICONAZOLE NITRATE 100 MG SUPP SUPP.VAG PV SCH (21:59)
[2017-05-14] MEDS: MONTELUKAST NA 10 MG TABLET PO SCH (22:00)
[2017-05-15] MEDS: diphenhydrAMINE HCL 25 MG CAPSULE (FP) PO PRN ×2 (01:48→21:31)
[2017-05-15] MEDS: ALBUTEROL SO4 0.083% IH SOL 2.5 MG/3 ML VIAL.NEB. NEB PRN ×2 (01:55→06:52)
[2017-05-15] MEDS: methylPREDNISolone NA SUCC 125 MG/2 ML VIAL IVPUSH SCH ×3 (02:19→17:08)
[2017-05-15] MEDS: metFORMIN HCL 500 MG TABLET (FP) PO SCH ×3 (06:04→17:08)
[2017-05-15] MEDS: INSULIN SLIDING SCALE (NOVOLOG) 1 VIAL SQ SCH ×4 (06:04→21:30)
[2017-05-15] MEDS: ARFORMOTEROL TARTRATE 15 MCG/2 ML VIAL NEB SCH ×2 (08:15→20:50)
[2017-05-15 08:25] LABS: HEMATOCRIT 39.4 % (32.4-45.2); HEMOGLOBIN 12.4 GM/dL (10.7-15.3); MCH 26.8 pg (25.7-33.7); MCHC 31.5 g/dl (32.0-36.0); MEAN CELL VOLUME 85.2 fl (80-96); MEAN PLT VOLUME 9.9 fl (7.5-11.1); PLATELET COUNT 198 K/MM3 (134-434); RBC 4.62 M/mm3 (3.60-5.2); RDW 15.2 % (11.6-15.6); WHITE BLOOD COUNT 19.7 K/mm3 (4.0-10.0)
[2017-05-15 08:51] LABS: ALBUMIN 3.2 g/dl (3.4-5.0); ANION GAP 13 (8-16); BLOOD UREA NITROGEN 26 mg/dL (7-18); CALCIUM 8.8 mg/dL (8.5-10.1); CHLORIDE 99 mmol/L (98-107); CO2 25 mmol/L (21-32); GLUCOSE,RANDOM 238 mg/dL (74-106); POTASSIUM 4.1 mmol/L (3.5-5.1); SODIUM 137 mmol/L (136-145)
[2017-05-15 08:55] LABS: ALK PHOS 50 U/L (45-117); BILIRUBIN,TOTAL 0.4 mg/dL (0.2-1.0); CREATININE 0.8 mg/dL (0.55-1.02); SGOT/AST 12 U/L (15-37); SGPT/ALT 35 U/L (12-78); TOT PROT 6.2 g/dl (6.4-8.2)
[2017-05-15] MEDS ORDERED: PT OWN MED DRAWER 7, Y5N ONE (09:42)
[2017-05-15] MEDS: TIOTROPIUM BROMIDE 18 MCG/INH (DEVICE W/ 5 CAPSULES) IH SCH (10:23)
[2017-05-15] MEDS: LOSARTAN POTASSIUM 50 MG TABLET (FP) PO SCH (10:23)
[2017-05-15] MEDS: MOMETASONE FUROATE 220 MCG/IH INHALER IH SCH ×2 (10:24→21:27)
[2017-05-15] MEDS: THEOPHYLLINE ANHYDROUS 200 MG CAP.ER.24H PO SCH (10:24)
--- NOTE | 2017-05-15 10:57 | PN ---
Progress Note, Physician History of Present Illness: pulmonary alert,some clinical improvement,less dyspneic - Current Medication List Current Medications: Active Medications Acetaminophen (Tylenol -) 650 mg PO Q6H PRN PRN Reason: FEVER OR PAIN Albuterol Sulfate (Ventolin 0.083% Nebulizer Soln -) 1 amp NEB Q4H PRN PRN Reason: SHORT OF BREATH/WHEEZING Last Admin: 05/15/17 06:52 Dose: 1 amp Arformoterol Tartrate (Brovana (Restricted To Pulmonology/Resp) -) 1 amp NEB RBID [facility] Last Admin: 05/15/17 08:15 Dose: 1 amp Diphenhydramine HCl (Benadryl -) 25 mg PO Q6H PRN PRN Reason: ITCHING Last Admin: 05/15/17 01:48 Dose: 25 mg Insulin Aspart (Novolog Vial Sliding Scale -) 1 vial SQ ACHS [facility] PRN Reason: Protocol Last Admin: 05/15/17 06:04 Dose: 8 units Losartan Potassium (Cozaar -) 50 mg PO DAILY [facility] Last Admin: 05/15/17 10:23 Dose: 50 mg Metformin HCl (Glucophage -) 500 mg PO TID@0700,1130,1630 [facility] Last Admin: 05/15/17 06:04 Dose: 500 mg Methylprednisolone Sodium Succinate (Solu-Medrol -) 60 mg IVPUSH Q8H-IV [facility] Last Admin: 05/15/17 10:23 Dose: 60 mg Miconazole Nitrate (Monistat-7 Vaginal Suppository -) 100 mg PV [facility] Stop: 05/17/17 22:01 Last Admin: 05/14/17 21:59 Dose: 100 mg Mometasone Furoate (Asmanex 220mcg -) 2 puff IH BID [facility] Last Admin: 05/15/17 10:24 Dose: 2 puff Montelukast Sodium (Singulair -) 10 mg PO HS [facility] Last Admin: 05/14/17 22:00 Dose: 10 mg Theophylline ([place]-24) 400 mg PO DAILY [facility] Last Admin: 05/15/17 10:24 Dose: 400 mg Tiotropium [place] (Spiriva -) 1 puff IH DAILY [facility] Last Admin: 05/15/17 10:23 Dose: 1 puff - Objective Vital Signs: Vital Signs Temperature 98.2 F 05/15/17 09:00 Pulse Rate 97 H 05/15/17 09:00 Respiratory Rate 20 05/15/17 09:00 Blood Pressure 151/69 05/15/17 09:00 O2 Sat by Pulse Oximetry (%) 96 05/14/17 21:00 Constitutional: Yes: Well Nourished, Calm Eyes: Yes: WNL HENT: Yes: WNL Neck: Yes: WNL Cardiovascular: Yes: Regular Rate and Rhythm, S1, S2 Respiratory: Yes: Wheezes (yuridia wheezes) Gastrointestinal: Yes: Normal Bowel Sounds, Soft Extremities: Yes: WNL Edema: Yes Labs: CBC, BMP 05/15/17 07:12 05/15/17 07:12 - ....Imaging Chest X-ray: Report Reviewed, Image Reviewed Problem List - Problems (1) Asthma exacerbation Code(s): J45.901 - UNSPECIFIED ASTHMA WITH (ACUTE) EXACERBATION (2) Asthma exacerbation in COPD Code(s): J44.1 - CHRONIC OBSTRUCTIVE PULMONARY DISEASE W (ACUTE) EXACERBATION; J45.901 - UNSPECIFIED ASTHMA WITH (ACUTE) EXACERBATION (3) Hypercholesteremia Code(s): E78.0 - PURE HYPERCHOLESTEROLEMIA * DO NOT USE * (4) Hypertension Code(s): I10 - ESSENTIAL (PRIMARY) HYPERTENSION (5) Osteoarthritis Code(s): M19.90 - UNSPECIFIED OSTEOARTHRITIS, UNSPECIFIED SITE (6) Diabetes Code(s): E11.9 - TYPE 2 DIABETES MELLITUS WITHOUT COMPLICATIONS Assessment/Plan IMP ASTHMA/COPD EXACERBATION HTN HLD RON IMPROVING NIDDM PLAN IV STEROIDS SAME DOSE INHALED BRONCHODILATORS/INHALED STEROIDS O2 PRN MONITOR PEAK FLOW MONITOR LYTES THEOPHYLLINE DR BROWN Problem List - Problems (1) Asthma exacerbation Code(s): J45.901 - UNSPECIFIED ASTHMA WITH (ACUTE) EXACERBATION (2) Asthma exacerbation in COPD Code(s): J44.1 - CHRONIC OBSTRUCTIVE PULMONARY DISEASE W (ACUTE) EXACERBATION; J45.901 - UNSPECIFIED ASTHMA WITH (ACUTE) EXACERBATION (3) Hypercholesteremia Code(s): E78.0 - PURE HYPERCHOLESTEROLEMIA * DO NOT USE * (4) Hypertension Code(s): I10 - ESSENTIAL (PRIMARY) HYPERTENSION (5) Osteoarthritis Code(s): M19.90 - UNSPECIFIED OSTEOARTHRITIS, UNSPECIFIED SITE (6) Diabetes Code(s): E11.9 - TYPE 2 DIABETES MELLITUS WITHOUT COMPLICATIONS
[2017-05-15] MEDS ORDERED: INSULIN (NOVOLOG) ASPART 100 UNITS/ML 10ML VIAL ONE (11:18)
[2017-05-15 12:29] LABS: ACANTHOCYTES 0; ANISOCYTOSIS 0; HELMET CELLS 0; HOWELL-JOLLY BODIES 0; MACROCYTOSIS 0; OVALOCYTE 0; PLATELET ESTIMATE NORMAL; SICKELED CELLS 0; TARGET CELLS 0; TEAR DROP CELLS 0; TOXIC GRANULATION 0
[2017-05-15] MEDS ORDERED: FUROSEMIDE 40 MG/4 ML INJECTABLE VIAL IVPUSH ONE (16:00)
--- NOTE | 2017-05-15 17:12 | PN ---
Progress Note, Physician History of Present Illness: little better - Current Medication List Current Medications: Active Medications Acetaminophen (Tylenol -) 650 mg PO Q6H PRN PRN Reason: FEVER OR PAIN Albuterol Sulfate (Ventolin 0.083% Nebulizer Soln -) 1 amp NEB Q4H PRN PRN Reason: SHORT OF BREATH/WHEEZING Last Admin: 05/15/17 06:52 Dose: 1 amp Arformoterol Tartrate (Brovana (Restricted To Pulmonology/Resp) -) 1 amp NEB RBID [facility] Last Admin: 05/15/17 08:15 Dose: 1 amp Diphenhydramine HCl (Benadryl -) 25 mg PO Q6H PRN PRN Reason: ITCHING Last Admin: 05/15/17 01:48 Dose: 25 mg Insulin Aspart (Novolog Vial Sliding Scale -) 1 vial SQ ACHS [facility] PRN Reason: Protocol Last Admin: 05/15/17 17:09 Dose: 8 units Losartan Potassium (Cozaar -) 50 mg PO DAILY [facility] Last Admin: 05/15/17 10:23 Dose: 50 mg Metformin HCl (Glucophage -) 500 mg PO TID@0700,1130,1630 [facility] Last Admin: 05/15/17 17:08 Dose: 500 mg Methylprednisolone Sodium Succinate (Solu-Medrol -) 60 mg IVPUSH Q8H-IV [facility] Last Admin: 05/15/17 17:08 Dose: 60 mg Miconazole Nitrate (Monistat-7 Vaginal Suppository -) 100 mg PV [facility] Stop: 05/17/17 22:01 Last Admin: 05/14/17 21:59 Dose: 100 mg Mometasone Furoate (Asmanex 220mcg -) 2 puff IH BID [facility] Last Admin: 05/15/17 10:24 Dose: 2 puff Montelukast Sodium (Singulair -) 10 mg PO [facility] Last Admin: 05/14/17 22:00 Dose: 10 mg Theophylline (Leland-24) 400 mg PO DAILY [facility] Last Admin: 05/15/17 10:24 Dose: 400 mg Tiotropium [place] (Spiriva -) 1 puff IH DAILY [facility] Last Admin: 05/15/17 10:23 Dose: 1 puff - Objective Vital Signs: Vital Signs Temperature 97.6 F 01/17/18 14:57 Pulse Rate 97 H 05/15/17 14:57 Respiratory Rate 18 05/15/17 14:57 Blood Pressure 147/69 05/15/17 14:57 O2 Sat by Pulse Oximetry (%) 97 05/15/17 10:20 Constitutional: Yes: No Distress HENT: Yes: Atraumatic Neck: Yes: Supple Cardiovascular: Yes: Regular Rate and Rhythm Respiratory: Yes: Wheezes Gastrointestinal: Yes: Normal Bowel Sounds Extremities: Yes: WNL Edema: No Peripheral Pulses WNL: Yes Neurological: Yes: Alert, Oriented Labs: CBC, BMP 05/15/17 07:12 05/15/17 07:12 Problem List - Problems (1) COPD exacerbation Assessment/Plan: iv steroids, duo nebs on theophylline now in addition to other meds Code(s): J44.1 - CHRONIC OBSTRUCTIVE PULMONARY DISEASE W (ACUTE) EXACERBATION (2) Diabetes Assessment/Plan: insulin sliding scale oral meds bgms Code(s): E11.9 - TYPE 2 DIABETES MELLITUS WITHOUT COMPLICATIONS (3) Hypercholesteremia Code(s): E78.0 - PURE HYPERCHOLESTEROLEMIA * DO NOT USE * (4) Hypertension Assessment/Plan: on meds stable Code(s): I10 - ESSENTIAL (PRIMARY) HYPERTENSION
[2017-05-15] MEDS: MICONAZOLE NITRATE 100 MG SUPP SUPP.VAG PV SCH (21:27)
[2017-05-15] MEDS: MONTELUKAST NA 10 MG TABLET PO SCH (21:30)
[2017-05-16] MEDS: methylPREDNISolone NA SUCC 125 MG/2 ML VIAL IVPUSH SCH ×3 (01:45→22:34)
[2017-05-16] MEDS: metFORMIN HCL 500 MG TABLET (FP) PO SCH ×3 (06:29→17:35)
[2017-05-16] MEDS: INSULIN SLIDING SCALE (NOVOLOG) 1 VIAL SQ SCH ×4 (06:29→22:34)
[2017-05-16] MEDS: ARFORMOTEROL TARTRATE 15 MCG/2 ML VIAL NEB SCH ×2 (07:55→20:20)
[2017-05-16] MEDS ORDERED: INSULIN (NOVOLOG) ASPART 100 UNITS/ML 10ML VIAL ONE (09:20)
[2017-05-16] MEDS ORDERED: PT OWN MED DRAWER 7, Y5N ONE (09:21)
[2017-05-16] MEDS: TIOTROPIUM BROMIDE 18 MCG/INH (DEVICE W/ 5 CAPSULES) IH SCH (09:29)
[2017-05-16] MEDS: LOSARTAN POTASSIUM 50 MG TABLET (FP) PO SCH (09:29)
[2017-05-16] MEDS: MOMETASONE FUROATE 220 MCG/IH INHALER IH SCH ×2 (09:29→22:33)
[2017-05-16] MEDS: THEOPHYLLINE ANHYDROUS 200 MG CAP.ER.24H PO SCH (09:31)
--- NOTE | 2017-05-16 12:22 | PN ---
Progress Note (short form) - Note Progress Note: OOB to chair. Feels better overall. Some residual dry cough. Intake & Output 05/13/17 05/14/17 05/15/17 05/16/17 23:59 23:59 23:59 23:59 Intake Total 461 993 1572 200 Balance 313 810 2580 200 Weight 185 lb 4.8 oz 186 lb 14.4 oz 182 lb 11.2 oz Last Vital Signs Temp Pulse Resp BP Pulse Ox 98.0 F 93 H 19 135/78 98 05/16/17 09:28 05/16/17 09:28 05/16/17 09:28 05/16/17 09:28 05/16/17 07:55 Active Medications Acetaminophen (Tylenol -) 650 mg PO Q6H PRN PRN Reason: FEVER OR PAIN Arformoterol Tartrate (Brovana (Restricted To Pulmonology/Resp) -) 1 amp NEB RBID [facility] Last Admin: 05/16/17 07:55 Dose: 1 amp Diphenhydramine HCl (Benadryl -) 25 mg PO Q6H PRN PRN Reason: ITCHING Last Admin: 05/15/17 21:31 Dose: 25 mg Insulin Aspart (Novolog Vial Sliding Scale -) 1 vial SQ ACHS [facility] PRN Reason: Protocol Last Admin: 05/16/17 11:54 Dose: 8 units Losartan Potassium (Cozaar -) 50 mg PO DAILY [facility] Last Admin: 05/16/17 09:29 Dose: 50 mg Metformin HCl (Glucophage -) 500 mg PO TID@0700,1130,1630 [facility] Last Admin: 05/16/17 11:54 Dose: 500 mg Methylprednisolone Sodium Succinate (Solu-Medrol -) 60 mg IVPUSH Q8H-IV [facility] Last Admin: 05/16/17 09:29 Dose: 60 mg Miconazole Nitrate (Monistat-7 Vaginal Suppository -) 100 mg PV HS [facility] Stop: 05/17/17 22:01 Last Admin: 05/15/17 21:27 Dose: 100 mg Mometasone Furoate (Asmanex 220mcg -) 2 puff IH BID [facility] Last Admin: 05/16/17 09:29 Dose: 2 puff Montelukast Sodium (Singulair -) 10 mg PO HS [facility] Last Admin: 05/15/17 21:30 Dose: 10 mg Theophylline (Leland-24) 400 mg PO DAILY [facility] Last Admin: 05/16/17 09:31 Dose: 400 mg Tiotropium [place] (Spiriva -) 1 puff IH DAILY [facility] Last Admin: 05/16/17 09:29 Dose: 1 puff Constitutional: Yes: NAD Eyes: Yes: WNL HENT: Yes: WNL Neck: Yes: WNL Cardiovascular: Yes: Regular Rate and Rhythm, S1, S2 Respiratory: Yes: Scattered rhonchi Gastrointestinal: Yes: Normal Bowel Sounds, Soft Extremities: Yes: WNL Edema: Yes Labs: Laboratory Results - last 24 hr 05/15/17 05/15/17 05/15/17 07:12 16:38 21:29 Neutrophils % (Manual) 82.5 Band Neutrophils % 3.1 Lymphocytes % (Manual) 8.2 D Monocytes % (Manual) 2 L D Eosinophils % (Manual) 0.0 Basophils % (Manual) 0.0 Myelocytes % (Man) 3 H D Metamyelocytes 1 D Hypochromia 0 Toxic Granulation 0 Dohle Bodies 0 Platelet Estimate Normal Polychromasia 0 Poikilocytosis 0 Basophilic Stippling 0 Anisocytosis 0 Microcytosis 0 Macrocytosis 0 Spherocytes 0 Sickle Cells 0 Target Cells 0 Tear Drop Cells 0 Ovalocytes 0 Stomatocytes 0 Helmet Cells 0 Hernandez-Churdan Bodies 0 [place] Rings 0 Fito Cells 0 Acanthocytes (Spur) 0 Fragmented RBCs 0 Schistocytes 0 POC Glucometer 288 294 05/16/17 06:27 Neutrophils % (Manual) Band Neutrophils % Lymphocytes % (Manual) Monocytes % (Manual) Eosinophils % (Manual) Basophils % (Manual) Myelocytes % (Man) Metamyelocytes Hypochromia Toxic Granulation Dohle Bodies Platelet Estimate Polychromasia Poikilocytosis Basophilic Stippling Anisocytosis Microcytosis Macrocytosis Spherocytes Sickle Cells Target Cells Tear Drop Cells Ovalocytes Stomatocytes Helmet Cells Hernandez-Churdan Bodies [place] Rings Fito Cells Acanthocytes (Spur) Fragmented RBCs Schistocytes POC Glucometer 279 Problem List - Problems (1) Asthma exacerbation Code(s): J45.901 - UNSPECIFIED ASTHMA WITH (ACUTE) EXACERBATION (2) Asthma exacerbation in COPD Code(s): J44.1 - CHRONIC OBSTRUCTIVE PULMONARY DISEASE W (ACUTE) EXACERBATION; J45.901 - UNSPECIFIED ASTHMA WITH (ACUTE) EXACERBATION (3) Hypercholesteremia Code(s): E78.0 - PURE HYPERCHOLESTEROLEMIA * DO NOT USE * (4) Hypertension Code(s): I10 - ESSENTIAL (PRIMARY) HYPERTENSION (5) Osteoarthritis Code(s): M19.90 - UNSPECIFIED OSTEOARTHRITIS, UNSPECIFIED SITE (6) Diabetes Code(s): E11.9 - TYPE 2 DIABETES MELLITUS WITHOUT COMPLICATIONS Assessment/Plan IMP ASTHMA/COPD EXACERBATION HTN HLD RON IMPROVING NIDDM PLAN WEAN IV STEROIDS INHALED BRONCHODILATORS/INHALED STEROIDS O2 PRN MONITOR PEAK FLOW THEOPHYLLINE Dr Peoples
--- NOTE | 2017-05-16 17:33 | PN ---
Progress Note, Physician History of Present Illness: little better - Current Medication List Current Medications: Active Medications Acetaminophen (Tylenol -) 650 mg PO Q6H PRN PRN Reason: FEVER OR PAIN Arformoterol Tartrate (Brovana (Restricted To Pulmonology/Resp) -) 1 amp NEB RBID [facility] Last Admin: 05/16/17 07:55 Dose: 1 amp Diphenhydramine HCl (Benadryl -) 25 mg PO Q6H PRN PRN Reason: ITCHING Last Admin: 05/15/17 21:31 Dose: 25 mg Insulin Aspart (Novolog Vial Sliding Scale -) 1 vial SQ ACHS [facility] PRN Reason: Protocol Last Admin: 05/16/17 11:54 Dose: 8 units Losartan Potassium (Cozaar -) 50 mg PO DAILY [facility] Last Admin: 05/16/17 09:29 Dose: 50 mg Metformin HCl (Glucophage -) 500 mg PO TID@0700,1130,1630 [facility] Last Admin: 05/16/17 11:54 Dose: 500 mg Methylprednisolone Sodium Succinate (Solu-Medrol -) 40 mg IVPUSH BID [facility] Miconazole Nitrate (Monistat-7 Vaginal Suppository -) 100 mg PV [facility] Stop: 05/17/17 22:01 Last Admin: 05/15/17 21:27 Dose: 100 mg Mometasone Furoate (Asmanex 220mcg -) 2 puff IH BID [facility] Last Admin: 05/16/17 09:29 Dose: 2 puff Montelukast Sodium (Singulair -) 10 mg PO [facility] Last Admin: 05/15/17 21:30 Dose: 10 mg Theophylline (Leland-24) 400 mg PO DAILY [facility] Last Admin: 05/16/17 09:31 Dose: 400 mg Tiotropium [place] (Spiriva -) 1 puff IH DAILY [facility] Last Admin: 05/16/17 09:29 Dose: 1 puff - Objective Vital Signs: Vital Signs Temperature 98.7 F 05/16/17 15:21 Pulse Rate 96 H 05/16/17 15:21 Respiratory Rate 21 05/16/17 15:21 Blood Pressure 136/53 05/16/17 15:21 O2 Sat by Pulse Oximetry (%) 98 05/16/17 09:28 Constitutional: Yes: No Distress HENT: Yes: Atraumatic Neck: Yes: Supple Cardiovascular: Yes: Regular Rate and Rhythm Respiratory: Yes: Rhonchi, Wheezes Extremities: Yes: WNL Neurological: Yes: Alert, Oriented Labs: CBC, BMP 05/15/17 07:12 05/15/17 07:12 Problem List - Problems (1) COPD exacerbation Assessment/Plan: iv steroids, duo nebs on theophylline now in addition to other meds Code(s): J44.1 - CHRONIC OBSTRUCTIVE PULMONARY DISEASE W (ACUTE) EXACERBATION (2) Diabetes Assessment/Plan: insulin sliding scale oral meds bgms Code(s): E11.9 - TYPE 2 DIABETES MELLITUS WITHOUT COMPLICATIONS (3) Hypercholesteremia Code(s): E78.0 - PURE HYPERCHOLESTEROLEMIA * DO NOT USE * (4) Hypertension Code(s): I10 - ESSENTIAL (PRIMARY) HYPERTENSION
[2017-05-16] MEDS: MICONAZOLE NITRATE 100 MG SUPP SUPP.VAG PV SCH (22:33)
[2017-05-16] MEDS: diphenhydrAMINE HCL 25 MG CAPSULE (FP) PO PRN (22:34)
[2017-05-16] MEDS: MONTELUKAST NA 10 MG TABLET PO SCH (22:34)
[2017-05-17] MEDS: metFORMIN HCL 500 MG TABLET (FP) PO SCH ×3 (06:36→17:48)
[2017-05-17] MEDS: INSULIN SLIDING SCALE (NOVOLOG) 1 VIAL SQ SCH ×4 (06:36→22:20)
[2017-05-17] MEDS: ARFORMOTEROL TARTRATE 15 MCG/2 ML VIAL NEB SCH ×2 (08:08→20:40)
[2017-05-17] MEDS ORDERED: PT OWN MED DRAWER 7, Y5N ONE ×2 (10:58→18:34)
[2017-05-17] MEDS: LOSARTAN POTASSIUM 50 MG TABLET (FP) PO SCH (10:59)
[2017-05-17] MEDS: MOMETASONE FUROATE 220 MCG/IH INHALER IH SCH ×2 (10:59→22:19)
[2017-05-17] MEDS: TIOTROPIUM BROMIDE 18 MCG/INH (DEVICE W/ 5 CAPSULES) IH SCH (11:00)
[2017-05-17] MEDS: methylPREDNISolone NA SUCC 125 MG/2 ML VIAL IVPUSH SCH (11:00)
[2017-05-17] MEDS: THEOPHYLLINE ANHYDROUS 200 MG CAP.ER.24H PO SCH (11:00)
--- NOTE | 2017-05-17 13:25 | PN ---
Progress Note (short form) - Note Progress Note: PULMONARY SUBJECTIVE IMPROVED VSS/AFEBRILE ANICTERIC MINIMAL EXP WHEEZE S1S2 OBESE SOFT NOT TENDER NO EDEMA CXR/MEDS/NOTES/MICRO REVIEWED A/P Acute Asthma/COPD Exacerbation HTN DM Acute Kidney Injury improving - medrol discontinued changed to prednisone - inhaled bronchodilators standing and PRN - singulair - monitor peak flow - O2 to keep SpO2 >90% - DVT prophylaxis [place] GONZALEZ MD
--- NOTE | 2017-05-17 14:02 | PN ---
Progress Note, Physician History of Present Illness: little better - Current Medication List Current Medications: Active Medications Acetaminophen (Tylenol -) 650 mg PO Q6H PRN PRN Reason: FEVER OR PAIN Arformoterol Tartrate (Brovana (Restricted To Pulmonology/Resp) -) 1 amp NEB RBID [facility] Last Admin: 05/17/17 08:08 Dose: 1 amp Diphenhydramine HCl (Benadryl -) 25 mg PO Q6H PRN PRN Reason: ITCHING Last Admin: 05/16/17 22:34 Dose: 25 mg Insulin Aspart (Novolog Vial Sliding Scale -) 1 vial SQ ACHS [facility] PRN Reason: Protocol Last Admin: 05/17/17 11:39 Dose: Not Given Losartan Potassium (Cozaar -) 50 mg PO DAILY [facility] Last Admin: 05/17/17 10:59 Dose: 50 mg Metformin HCl (Glucophage -) 500 mg PO TID@0700,1130,1630 [facility] Last Admin: 05/17/17 12:28 Dose: 500 mg Miconazole Nitrate (Monistat-7 Vaginal Suppository -) 100 mg PV [facility] Stop: 05/17/17 22:01 Last Admin: 05/16/17 22:33 Dose: 100 mg Mometasone Furoate (Asmanex 220mcg -) 2 puff IH BID [facility] Last Admin: 05/17/17 10:59 Dose: 2 puff Montelukast Sodium (Singulair -) 10 mg PO [facility] Last Admin: 05/16/17 22:34 Dose: 10 mg Prednisone (Deltasone -) 40 mg PO DAILY [facility] Theophylline (Leland-24) 400 mg PO DAILY [facility] Last Admin: 05/17/17 11:00 Dose: 400 mg Tiotropium [place] (Spiriva -) 1 puff IH DAILY [facility] Last Admin: 05/17/17 11:00 Dose: 1 puff - Objective Vital Signs: Vital Signs Temperature 98.7 F 05/17/17 10:00 Pulse Rate 91 H 05/17/17 10:00 Respiratory Rate 18 05/17/17 10:00 Blood Pressure 142/65 05/17/17 10:00 O2 Sat by Pulse Oximetry (%) 97 05/17/17 09:00 Constitutional: Yes: No Distress HENT: Yes: Atraumatic Neck: Yes: Supple Cardiovascular: Yes: Regular Rate and Rhythm Respiratory: Yes: Wheezes Gastrointestinal: Yes: Normal Bowel Sounds Extremities: Yes: WNL Neurological: Yes: Alert, Oriented Labs: CBC, BMP 05/15/17 07:12 05/15/17 07:12 Problem List - Problems (1) COPD exacerbation Assessment/Plan: iv steroids, duo nebs on theophylline now in addition to other meds Code(s): J44.1 - CHRONIC OBSTRUCTIVE PULMONARY DISEASE W (ACUTE) EXACERBATION (2) Diabetes Assessment/Plan: insulin sliding scale oral meds bgms Code(s): E11.9 - TYPE 2 DIABETES MELLITUS WITHOUT COMPLICATIONS (3) Hypercholesteremia Code(s): E78.0 - PURE HYPERCHOLESTEROLEMIA * DO NOT USE * (4) Hypertension Assessment/Plan: on meds stable Code(s): I10 - ESSENTIAL (PRIMARY) HYPERTENSION
[2017-05-17] MEDS ORDERED: INSULIN (NOVOLOG) ASPART 100 UNITS/ML 10ML VIAL ONE ×2 (17:44→18:34)
[2017-05-17] MEDS: predniSONE 20 MG TABLET (UD) PO SCH (17:48)
[2017-05-17] MEDS ORDERED: ONDANSETRON 4 MG TABLET PO PRN (18:00)
[2017-05-17] MEDS: MICONAZOLE NITRATE 100 MG SUPP SUPP.VAG PV SCH (22:19)
[2017-05-17] MEDS: diphenhydrAMINE HCL 25 MG CAPSULE (FP) PO PRN (22:27)
[2017-05-17] MEDS: MONTELUKAST NA 10 MG TABLET PO SCH (22:27)
[2017-05-18] MEDS: INSULIN SLIDING SCALE (NOVOLOG) 1 VIAL SQ SCH ×4 (06:42→22:25)
[2017-05-18] MEDS: metFORMIN HCL 500 MG TABLET (FP) PO SCH ×3 (06:43→16:28)
[2017-05-18] MEDS: ARFORMOTEROL TARTRATE 15 MCG/2 ML VIAL NEB SCH ×2 (07:40→20:49)
[2017-05-18] MEDS: LOSARTAN POTASSIUM 50 MG TABLET (FP) PO SCH (09:54)
[2017-05-18] MEDS: predniSONE 20 MG TABLET (UD) PO SCH (09:54)
[2017-05-18] MEDS: MOMETASONE FUROATE 220 MCG/IH INHALER IH SCH ×2 (09:55→22:25)
[2017-05-18] MEDS: THEOPHYLLINE ANHYDROUS 200 MG CAP.ER.24H PO SCH (09:56)
[2017-05-18] MEDS: TIOTROPIUM BROMIDE 18 MCG/INH (DEVICE W/ 5 CAPSULES) IH SCH (12:56)
--- NOTE | 2017-05-18 13:05 | PN ---
Progress Note (short form) - Note Progress Note: OOB to chair. Feels much better overall. Some residual dry cough. Intake & Output 05/15/17 05/16/17 05/17/17 05/18/17 23:59 23:59 23:59 23:59 Intake Total 1000 1510 1000 200 Balance 1000 1510 1000 200 Weight 186 lb 14.4 oz 182 lb 11.2 oz Last Vital Signs Temp Pulse Resp BP Pulse Ox 98.0 F 90 20 130/60 97 05/18/17 10:00 05/18/17 10:00 05/18/17 10:00 05/18/17 10:00 05/17/17 21:00 Active Medications Acetaminophen (Tylenol -) 650 mg PO Q6H PRN PRN Reason: FEVER OR PAIN Arformoterol Tartrate (Brovana (Restricted To Pulmonology/Resp) -) 1 amp NEB RBID [facility] Last Admin: 05/18/17 07:40 Dose: 1 amp Diphenhydramine HCl (Benadryl -) 25 mg PO Q6H PRN PRN Reason: ITCHING Last Admin: 05/17/17 22:27 Dose: 25 mg Insulin Aspart (Novolog Vial Sliding Scale -) 1 vial SQ ACHS [facility] PRN Reason: Protocol Last Admin: 05/18/17 11:30 Dose: Not Given Losartan Potassium (Cozaar -) 50 mg PO DAILY [facility] Last Admin: 05/18/17 09:54 Dose: 50 mg Metformin HCl (Glucophage -) 500 mg PO TID@0700,1130,1630 [facility] Last Admin: 05/18/17 11:30 Dose: 500 mg Mometasone Furoate (Asmanex 220mcg -) 2 puff IH BID [facility] Last Admin: 05/18/17 09:55 Dose: 2 puff Montelukast Sodium (Singulair -) 10 mg PO HS [facility] Last Admin: 05/17/17 22:27 Dose: 10 mg Ondansetron HCl (Zofran -) 4 mg PO Q4H PRN Last Admin: 05/17/17 19:15 Dose: 4 mg Prednisone (Deltasone -) 40 mg PO DAILY [facility] Last Admin: 05/18/17 09:54 Dose: 40 mg Theophylline (Leland-24) 400 mg PO DAILY [facility] Last Admin: 05/18/17 09:56 Dose: 400 mg Tiotropium [place] (Spiriva -) 1 puff IH DAILY [facility] Last Admin: 05/18/17 12:56 Dose: 1 puff Constitutional: Yes: NAD Eyes: Yes: WNL HENT: Yes: WNL Neck: Yes: WNL Cardiovascular: Yes: Regular Rate and Rhythm, S1, S2 Respiratory: Yes: Scattered rhonchi, no wheezing Gastrointestinal: Yes: Normal Bowel Sounds, Soft Extremities: Yes: WNL Edema: Yes Labs: Laboratory Results - last 24 hr 05/17/17 05/17/17 05/18/17 16:20 22:09 06:41 POC Glucometer 277 174 156 Problem List - Problems (1) Asthma exacerbation Code(s): J45.901 - UNSPECIFIED ASTHMA WITH (ACUTE) EXACERBATION (2) Asthma exacerbation in COPD Code(s): J44.1 - CHRONIC OBSTRUCTIVE PULMONARY DISEASE W (ACUTE) EXACERBATION; J45.901 - UNSPECIFIED ASTHMA WITH (ACUTE) EXACERBATION (3) Hypercholesteremia Code(s): E78.0 - PURE HYPERCHOLESTEROLEMIA * DO NOT USE * (4) Hypertension Code(s): I10 - ESSENTIAL (PRIMARY) HYPERTENSION (5) Osteoarthritis Code(s): M19.90 - UNSPECIFIED OSTEOARTHRITIS, UNSPECIFIED SITE (6) Diabetes Code(s): E11.9 - TYPE 2 DIABETES MELLITUS WITHOUT COMPLICATIONS Assessment/Plan IMP ASTHMA/COPD EXACERBATION HTN HLD RON IMPROVING NIDDM PLAN PREDNISONE INHALED BRONCHODILATORS/INHALED STEROIDS O2 PRN MONITOR PEAK FLOW THEOPHYLLINE DR ARMAS
[2017-05-18] MEDS ORDERED: INSULIN (NOVOLOG) ASPART 100 UNITS/ML 10ML VIAL ONE (16:24)
--- NOTE | 2017-05-18 18:00 | PN ---
Progress Note, Physician History of Present Illness: feeling better - Current Medication List Current Medications: Active Medications Acetaminophen (Tylenol -) 650 mg PO Q6H PRN PRN Reason: FEVER OR PAIN Arformoterol Tartrate (Brovana (Restricted To Pulmonology/Resp) -) 1 amp NEB RBID [facility] Last Admin: 05/18/17 07:40 Dose: 1 amp Diphenhydramine HCl (Benadryl -) 25 mg PO Q6H PRN PRN Reason: ITCHING Last Admin: 05/17/17 22:27 Dose: 25 mg Insulin Aspart (Novolog Vial Sliding Scale -) 1 vial SQ ACHS [facility] PRN Reason: Protocol Last Admin: 05/18/17 16:28 Dose: 10 units Losartan Potassium (Cozaar -) 50 mg PO DAILY [facility] Last Admin: 05/18/17 09:54 Dose: 50 mg Metformin HCl (Glucophage -) 500 mg PO TID@0700,1130,1630 [facility] Last Admin: 05/18/17 16:28 Dose: 500 mg Mometasone Furoate (Asmanex 220mcg -) 2 puff IH BID [facility] Last Admin: 05/18/17 09:55 Dose: 2 puff Montelukast Sodium (Singulair -) 10 mg PO HS [facility] Last Admin: 05/17/17 22:27 Dose: 10 mg Ondansetron HCl (Zofran -) 4 mg PO Q4H PRN Last Admin: 05/17/17 19:15 Dose: 4 mg Prednisone (Deltasone -) 40 mg PO DAILY [facility] Last Admin: 05/18/17 09:54 Dose: 40 mg Theophylline (Leland-24) 400 mg PO DAILY [facility] Last Admin: 05/18/17 09:56 Dose: 400 mg Tiotropium [place] (Spiriva -) 1 puff IH DAILY [facility] Last Admin: 05/18/17 12:56 Dose: 1 puff - Objective Vital Signs: Vital Signs Temperature 97.6 F 05/18/17 14:42 Pulse Rate 92 H 05/18/17 14:42 Respiratory Rate 22 05/18/17 14:42 Blood Pressure 137/43 05/18/17 14:42 O2 Sat by Pulse Oximetry (%) 97 05/18/17 09:00 Constitutional: Yes: No Distress HENT: Yes: Atraumatic Neck: Yes: Supple Cardiovascular: Yes: Regular Rate and Rhythm Respiratory: Yes: Wheezes (better) Gastrointestinal: Yes: Normal Bowel Sounds Extremities: Yes: WNL Edema: LLE: Trace, RLE: Trace Neurological: Yes: Alert, Oriented Labs: CBC, BMP 05/15/17 07:12 05/15/17 07:12 Problem List - Problems (1) COPD exacerbation Assessment/Plan: po steroids, duo nebs on theophylline Code(s): J44.1 - CHRONIC OBSTRUCTIVE PULMONARY DISEASE W (ACUTE) EXACERBATION (2) Diabetes Assessment/Plan: insulin sliding scale oral meds bgms Code(s): E11.9 - TYPE 2 DIABETES MELLITUS WITHOUT COMPLICATIONS (3) Hypercholesteremia Code(s): E78.0 - PURE HYPERCHOLESTEROLEMIA * DO NOT USE * (4) Hypertension Assessment/Plan: on meds stable Code(s): I10 - ESSENTIAL (PRIMARY) HYPERTENSION
[2017-05-18] MEDS: MONTELUKAST NA 10 MG TABLET PO SCH (22:25)
[2017-05-18] MEDS: diphenhydrAMINE HCL 25 MG CAPSULE (FP) PO PRN (22:25)
[2017-05-19] MEDS: INSULIN SLIDING SCALE (NOVOLOG) 1 VIAL SQ SCH ×2 (06:22→12:17)
[2017-05-19] MEDS: metFORMIN HCL 500 MG TABLET (FP) PO SCH ×2 (06:22→12:19)
[2017-05-19 07:14] VITALS: TEMP 98.6
[2017-05-19 08:06] LABS: HEMATOCRIT 42.3 % (32.4-45.2); HEMOGLOBIN 13.2 GM/dL (10.7-15.3); MCH 26.5 pg (25.7-33.7); MCHC 31.2 g/dl (32.0-36.0); MEAN CELL VOLUME 84.8 fl (80-96); PLATELET COUNT 169 K/MM3 (134-434); RBC 4.99 M/mm3 (3.60-5.2); RDW 14.9 % (11.6-15.6); WHITE BLOOD COUNT 18.2 K/mm3 (4.0-10.0)
[2017-05-19] MEDS: ARFORMOTEROL TARTRATE 15 MCG/2 ML VIAL NEB SCH (08:29)
[2017-05-19] MEDS ORDERED: PT OWN MED DRAWER 7, Y5N ONE (09:37)
[2017-05-19 10:18] LABS: ALBUMIN 2.8 g/dl (3.4-5.0); ALK PHOS 43 U/L (45-117); ANION GAP 8 (8-16); BILIRUBIN,TOTAL 0.5 mg/dL (0.2-1.0); BLOOD UREA NITROGEN 29 mg/dL (7-18); CHLORIDE 99 mmol/L (98-107); CO2 27 mmol/L (21-32); CREATININE 0.9 mg/dL (0.55-1.02); GLUCOSE,RANDOM 133 mg/dL (74-106); POTASSIUM 4.1 mmol/L (3.5-5.1); SGOT/AST 11 U/L (15-37); SGPT/ALT 34 U/L (12-78); SODIUM 134 mmol/L (136-145); TOT PROT 5.4 g/dl (6.4-8.2)
[2017-05-19 10:25] LABS: PLATELET ESTIMATE NORMAL
[2017-05-19] MEDS: predniSONE 20 MG TABLET (UD) PO SCH (10:34)
[2017-05-19] MEDS: LOSARTAN POTASSIUM 50 MG TABLET (FP) PO SCH (10:35)
[2017-05-19] MEDS: THEOPHYLLINE ANHYDROUS 200 MG CAP.ER.24H PO SCH (10:35)
[2017-05-19] MEDS: TIOTROPIUM BROMIDE 18 MCG/INH (DEVICE W/ 5 CAPSULES) IH SCH (10:35)
[2017-05-19] MEDS: MOMETASONE FUROATE 220 MCG/IH INHALER IH SCH (10:35)
[2017-05-19 11:56] VITALS: BP 130/62; PULSE 87
[2017-05-19] MEDS ORDERED: ONDANSETRON 4 MG/2 ML VIAL IVPUSH PRN (12:05)
[2017-05-19] MEDS ORDERED: INSULIN (NOVOLOG) ASPART 100 UNITS/ML 10ML VIAL ONE (12:10)
--- NOTE | 2017-05-19 12:13 | PN ---
Progress Note (short form) - Note Progress Note: OOB to chair. Breathing feels much better overall. Some residual dry cough. Nausea reported. Intake & Output 05/16/17 05/17/17 05/18/17 05/19/17 23:59 23:59 23:59 23:59 Intake Total 1510 1000 1075 250 Balance 1510 1000 1075 250 Weight 182 lb 11.2 oz Last Vital Signs Temp Pulse Resp BP Pulse Ox 98.6 F 87 20 130/62 98 05/19/17 06:00 05/19/17 10:00 05/19/17 10:00 05/19/17 10:00 05/18/17 21:00 Active Medications Acetaminophen (Tylenol -) 650 mg PO Q6H PRN PRN Reason: FEVER OR PAIN Arformoterol Tartrate (Brovana (Restricted To Pulmonology/Resp) -) 1 amp NEB RBID [facility] Last Admin: 05/19/17 08:29 Dose: 1 amp Diphenhydramine HCl (Benadryl -) 25 mg PO Q6H PRN PRN Reason: ITCHING Last Admin: 05/18/17 22:25 Dose: 25 mg Insulin Aspart (Novolog Vial Sliding Scale -) 1 vial SQ ACHS [facility] PRN Reason: Protocol Last Admin: 05/19/17 06:22 Dose: Not Given Losartan Potassium (Cozaar -) 50 mg PO DAILY [facility] Last Admin: 05/19/17 10:35 Dose: 50 mg Metformin HCl (Glucophage -) 500 mg PO TID@0700,1130,1630 [facility] Last Admin: 05/19/17 06:22 Dose: 500 mg Mometasone Furoate (Asmanex 220mcg -) 2 puff IH BID [facility] Last Admin: 05/19/17 10:35 Dose: 2 puff Montelukast Sodium (Singulair -) 10 mg PO HS [facility] Last Admin: 05/18/17 22:25 Dose: 10 mg Ondansetron HCl (Zofran Injection) 4 mg IVPUSH Q6H PRN PRN Reason: NAUSEA Prednisone (Deltasone -) 40 mg PO DAILY [facility] Last Admin: 05/19/17 10:34 Dose: 40 mg Theophylline (Leland-24) 400 mg PO DAILY [facility] Last Admin: 05/19/17 10:35 Dose: 400 mg Tiotropium [place] (Spiriva -) 1 puff IH DAILY [facility] Last Admin: 05/19/17 10:35 Dose: 1 puff Constitutional: Yes: NAD Eyes: Yes: WNL HENT: Yes: WNL Neck: Yes: WNL Cardiovascular: Yes: Regular Rate and Rhythm, S1, S2 Respiratory: Yes: Scattered rhonchi, no wheezing Gastrointestinal: Yes: Normal Bowel Sounds, Soft Extremities: Yes: WNL Edema: Yes Labs: Laboratory Results - last 24 hr 05/18/17 05/18/17 05/19/17 16:22 22:24 06:21 WBC RBC Hgb Hct MCV MCH MCHC RDW Plt Count MPV Neutrophils % Neutrophils % (Manual) Band Neutrophils % Lymphocytes % Lymphocytes % (Manual) Monocytes % (Manual) Eosinophils % (Manual) Basophils % (Manual) Myelocytes % (Man) Metamyelocytes Platelet Estimate Sodium Potassium Chloride Carbon Dioxide Anion Gap BUN Creatinine Creat Clearance w eGFR POC Glucometer 331 140 141 Random Glucose Calcium Total Bilirubin AST ALT Alkaline Phosphatase Total Protein Albumin 05/19/17 05/19/17 07:05 09:45 WBC 18.2 H RBC 4.99 Hgb 13.2 Hct 42.3 MCV 84.8 MCH 26.5 MCHC 31.2 L RDW 14.9 Plt Count 169 MPV 9.0 Neutrophils % No Result Required. Neutrophils % (Manual) 68.4 Band Neutrophils % 0.0 Lymphocytes % No Result Required. Lymphocytes % (Manual) 13.7 D Monocytes % (Manual) 5 D Eosinophils % (Manual) 1.0 D Basophils % (Manual) 0.0 Myelocytes % (Man) 1 D Metamyelocytes 1 Platelet Estimate Normal Sodium 134 L Potassium 4.1 Chloride 99 Carbon Dioxide 27 Anion Gap 8 BUN 29 H Creatinine 0.9 Creat Clearance w eGFR > 60 POC Glucometer Random Glucose 133 H Calcium 8.0 L Total Bilirubin 0.5 D AST 11 L ALT 34 Alkaline Phosphatase 43 L Total Protein 5.4 L Albumin 2.8 L Problem List - Problems (1) Asthma exacerbation Code(s): J45.901 - UNSPECIFIED ASTHMA WITH (ACUTE) EXACERBATION (2) Asthma exacerbation in COPD Code(s): J44.1 - CHRONIC OBSTRUCTIVE PULMONARY DISEASE W (ACUTE) EXACERBATION; J45.901 - UNSPECIFIED ASTHMA WITH (ACUTE) EXACERBATION (3) Hypercholesteremia Code(s): E78.0 - PURE HYPERCHOLESTEROLEMIA * DO NOT USE * (4) Hypertension Code(s): I10 - ESSENTIAL (PRIMARY) HYPERTENSION (5) Osteoarthritis Code(s): M19.90 - UNSPECIFIED OSTEOARTHRITIS, UNSPECIFIED SITE (6) Diabetes Code(s): E11.9 - TYPE 2 DIABETES MELLITUS WITHOUT COMPLICATIONS Assessment/Plan IMP ASTHMA/COPD EXACERBATION HTN HLD RON IMPROVING NIDDM PLAN PREDNISONE INHALED BRONCHODILATORS/INHALED STEROIDS O2 PRN MONITOR PEAK FLOW THEOPHYLLINE ZOFRAN PRN NO PULMONARY CONTRAINDICATION FOR D/C HOME DR ARMAS
--- NOTE | 2017-05-19 13:27 | DS ---
Physical Examination Vital Signs: Vital Signs Temperature 98.6 F 05/19/17 06:00 Pulse Rate 87 05/19/17 10:00 Respiratory Rate 20 05/19/17 10:00 Blood Pressure 130/62 05/19/17 10:00 O2 Sat by Pulse Oximetry (%) 98 05/18/17 21:00 Constitutional: Yes: No Distress HENT: Yes: Atraumatic Neck: Yes: Supple Cardiovascular: Yes: Regular Rate and Rhythm Respiratory: Yes: Wheezes Gastrointestinal: Yes: Normal Bowel Sounds Extremities: Yes: WNL Labs: CBC, BMP 05/19/17 07:05 05/19/17 09:45 Discharge Summary Reason For Visit: CHRONIC OBSTRUCTIVE ASTHMA W EXACERBATION Current Active Problems COPD exacerbation (Acute) Condition: Fair - Instructions Referrals: Jarad Miranda MD [Staff Physician] - Disposition: HOME - Home Medications Comprehensive Discharge Medication List: Ambulatory Orders Arformoterol Tartrate [Brovana] 15 mcg IH DAILY 01/02/15 Losartan Potassium 50 mg PO DAILY 01/02/15 Metformin HCl 500 mg PO TID PRN 01/02/15 Mometasone Furoate [Asmanex 220Mcg -] 2 inh IH HS 01/02/15 Tiotropium [place] [Spiriva] 1 inh PO DAILY 01/02/15 Albuterol 0.083% Nebulizer Delmi [Ventolin 0.083% Nebulizer Soln -] 1 neb NEB Q4H PRN #1 box 10/12/15 Montelukast Na [Singulair -] 10 mg PO HS #30 tablet 05/01/16 Prednisone 40 mg PO DAILY #40 tab.ds.pk 05/18/17 Theophylline Anhydrous [Leland-24] 400 mg PO DAILY #30 cap.er.24h 05/18/17 dc home
== END 2017-05-19 14:28 | disposition home or self-care (01) | DRG 191 ==
LOC: JER 06:42 → JERBED 10:20 → J5S 16:44 → OBSVTOIN 05-09 11:00
PROVIDERS: ADMIT Internal Medicine; ATTEND Internal Medicine
DX: J44.1 Chronic obstructive pulmonary disease with (acute) exacerbation (principal); N17.9 Acute kidney failure, unspecified; E11.9 Type 2 diabetes mellitus without complications; I10 Essential (primary) hypertension; E78.5 Hyperlipidemia, unspecified; Z87.891 Personal history of nicotine dependence; Z79.84 Long term (current) use of oral hypoglycemic drugs
CPT/HCPCS: 36415; 71045-TC; 71046-TC; 80048; 80053; 82550; 82553; 82947; 82962; 84484; 85025; 93005; 93010; 94150; 94640; 99283-25; G0378

== ENCOUNTER 2018-02-14 06:47 | Inpatient (IN) | payer OTHER ==
--- NOTE | 2018-02-14 07:49 | PDOC ---
History of Present Illness - General Chief Complaint: Shortness of Breath Stated Complaint: DIFFICULTY BREATHING/ASTHMA Time Seen by Provider: 02/14/18 07:45 History Source: Patient Exam Limitations: No Limitations - History of Present Illness Initial Comments: 77 yo F history asthma, COPD, HTN, DM presents with SOB for past 1 week. She states she has had cough with scant mucous. Denies fever, chills, leg swelling, cp. She has had similar symptoms in the past. She called Dr. Perea yesterday who recommended that she take 40 mg prednisone, but she is still not feeling improvement, so she sought evaluation. Past History - Past Medical History Allergies/Adverse Reactions: Allergies Allergy/AdvReac Type Severity Reaction Status Date / Time Iodinated Contrast- Oral and Allergy Unknown Verified 02/14/18 07:14 IV Dye [IV Dye, Iodine Containing Contrast ] tetracycline [Tetracycline] Allergy Unknown Verified 02/14/18 07:14 shellfish derived Allergy Verified 02/14/18 07:14 Home Medications: Ambulatory Orders Arformoterol Tartrate [Brovana] 15 mcg IH DAILY 01/02/15 Losartan Potassium 50 mg PO DAILY 01/02/15 metFORMIN HCL [Metformin HCl] 500 mg PO TID 01/02/15 Albuterol 0.083% Nebulizer Delmi [Ventolin 0.083% Nebulizer Soln -] 1 neb NEB Q4H PRN #1 box 10/12/15 Montelukast Na [Singulair -] 10 mg PO HS #30 tablet 05/01/16 Prednisone 40 mg PO DAILY #40 tab.ds.pk 05/18/17 Tiotropium [place] [Spiriva] 1 inh IH DAILY #7 cap.w.dev 05/20/17 Asthma: Yes COPD: Yes Diabetes: Yes HTN: Yes - Surgical History Abdominal Surgery: Yes - Immunization History Immunization Up to Date: Yes - Suicide/Smoking/Psychosocial Hx Smoking Status: No Smoking History: Never smoked Have you smoked in the past 12 months: No Number of Cigarettes Smoked Daily: 0 If you are a former smoker, when did you quit?: 1989 Information on smoking cessation initiated: No Hx Alcohol Use: No Drug/Substance Use Hx: No Substance Use Type: Alcohol Hx Substance Use Treatment: No Review of Systems - Review of Systems Able to Perform ROS?: Yes Comments:: GENERAL/CONSTITUTIONAL: No fever or chills. No weakness. HEAD, EYES, EARS, NOSE AND THROAT: No change in vision. No ear pain or discharge. No sore throat. CARDIOVASCULAR: No chest pain or shortness of breath. RESPIRATORY: +Cough and wheezing. No hemoptysis. GASTROINTESTINAL: No nausea, vomiting, diarrhea or constipation. GENITOURINARY: No dysuria, frequency, or change in urination. MUSCULOSKELETAL: No joint or muscle swelling or pain. No neck or back pain. SKIN: No rash NEUROLOGIC: No headache, vertigo, loss of consciousness, or change in strength/ sensation. ENDOCRINE: No increased thirst. No abnormal weight change. HEMATOLOGIC/LYMPHATIC: No anemia, easy bleeding, or history of blood clots. ALLERGIC/IMMUNOLOGIC: No hives or skin allergy. *Physical Exam - Vital Signs Last Vital Signs Temp Pulse Resp BP Pulse Ox 97.8 F 84 20 158/57 L 97 02/14/18 07:16 02/14/18 07:16 02/14/18 07:16 02/14/18 07:16 02/14/18 07:16 - Physical Exam Comments: GENERAL: Awake, alert, and fully oriented, in no acute distress HEAD: No signs of trauma EYES: PERRLA, EOMI, sclera anicteric, conjunctiva clear ENT: Auricles normal inspection, hearing grossly normal, nares patent, oropharynx clear without exudates. Moist mucosa NECK: Normal ROM, supple, no lymphadenopathy, JVD, or masses LUNGS: Dec air entry B/L, speaking 3-4 word sentences. No wheezing or crackles. HEART: Regular rate and rhythm, normal S1 and S2, no murmurs, rubs or gallops ABDOMEN: Soft, nontender, normoactive bowel sounds. No guarding, no rebound. No masses EXTREMITIES: Normal range of motion, no edema. No clubbing or cyanosis. No cords, erythema, or tenderness NEUROLOGICAL: Cranial nerves II through XII grossly intact. Normal speech, normal gait SKIN: Warm, Dry, normal turgor, no rashes or lesions noted. ED Treatment Course - LABORATORY CBC & Chemistry Diagram: 02/15/18 06:00 02/15/18 06:00 Medical Decision Making - Medical Decision Making 02/14/18 11:28 Pt improved with treatment, now able to speak full sentences. However, still with dec air entry B/L and SOB. Accepted for admission by hospitalist. *DC/Admit/Observation/Transfer Diagnosis at time of Disposition: Asthma exacerbation Qualifiers: Asthma severity: unspecified severity Asthma persistence: unspecified Qualified Code(s): J45.901 - Unspecified asthma with (acute) exacerbation - Discharge Dispostion Condition at time of disposition: Stable Decision to Admit order: Yes - Referrals - Patient Instructions - Post Discharge Activity
[2018-02-14] MEDS ORDERED: methylPREDNISolone NA SUCC 125 MG/2 ML VIAL IVPB ONE (07:57)
[2018-02-14] MEDS: ALBUTEROL SO4 2.5/IPRATROPIUM 0.5 INH SOL 3 ML VIAL.NEB. NEB SCH ×4 (08:00→08:55)
[2018-02-14] MEDS ORDERED: methylPREDNISolone NA SUCC 125 MG/2 ML VIAL ONE (08:23)
[2018-02-14] MEDS ORDERED: ALBUTEROL SO4 2.5/IPRATROPIUM 0.5 INH SOL 3 ML VIAL.NEB. NEB ONE (08:23)
[2018-02-14 08:58] LABS: BASO % 0.3 % (0-2.0); EOS % 0.6 % (0-4.5); HEMATOCRIT 42.6 % (32.4-45.2); HEMOGLOBIN 13.3 GM/dL (10.7-15.3); LYMPH % 18.6 % (8-40); MCH 26.8 pg (25.7-33.7); MCHC 31.3 g/dl (32.0-36.0); MEAN CELL VOLUME 85.5 fl (80-96); MEAN PLT VOLUME 10.2 fl (7.5-11.1); MONO % 10.6 % (3.8-10.2); NEUT % 69.9 % (42.8-82.8); PLATELET COUNT 210 K/MM3 (134-434); RBC 4.98 M/mm3 (3.60-5.2); RDW 14.3 % (11.6-15.6)
[2018-02-14 09:25] LABS: ALBUMIN 3.7 g/dl (3.4-5.0); ALK PHOS 66 U/L (45-117); ANION GAP 9 MMOL/L (8-16); BILIRUBIN,TOTAL 0.4 mg/dL (0.2-1); BLOOD UREA NITROGEN 32 mg/dL (7-18); CALCIUM 10.2 mg/dL (8.5-10.1); CHLORIDE 104 mmol/L (98-107); CO2 26 mmol/L (21-32); CREATININE 0.9 mg/dL (0.55-1.3); GLUCOSE,RANDOM 281 mg/dL (74-106); POTASSIUM 4.8 mmol/L (3.5-5.1); SGOT/AST 10 U/L (15-37); SGPT/ALT 29 U/L (13-61); SODIUM 139 mmol/L (136-145); TOT PROT 6.9 g/dl (6.4-8.2)
[2018-02-14 10:32] LABS: ANISOCYTOSIS 0; MACROCYTOSIS 0; PLATELET ESTIMATE NORMAL
[2018-02-14] MEDS ORDERED: metFORMIN HCL 500 MG TABLET (FP) PO ONE (10:49)
[2018-02-14] MEDS ORDERED: SODIUM CHLORIDE 1,000 ML IV STA (10:49)
[2018-02-14] MEDS ORDERED: ACETAMINOPHEN 325 MG TABLET (FP) PO ONE (10:49)
[2018-02-14] MEDS ORDERED: LOSARTAN POTASSIUM 50 MG TABLET (FP) PO ONE (10:49)
[2018-02-14] MEDS ORDERED: ACETAMINOPHEN 325 MG TABLET (FP) ONE (10:56)
[2018-02-14] MEDS ORDERED: metFORMIN HCL 500 MG TABLET (FP) ONE (10:56)
[2018-02-14] MEDS ORDERED: PT OWN MED DRAWER 7, Y5N ONE (11:39)
[2018-02-14] MEDS ORDERED: MAGNESIUM SULF 50% (8.12 MEQ/2 ML-1 GM VIAL) IVPB ONE (12:10)
[2018-02-14] MEDS ORDERED: ACETAMINOPHEN 325 MG TABLET (FP) PO PRN (12:35)
[2018-02-14] MEDS ORDERED: FLUCONAZOLE 50 MG TABLET PO ONE (12:35)
--- NOTE | 2018-02-14 12:35 | HP ---
CHIEF COMPLAINT:Shortness of breath PCP:Mitzy HISTORY OF PRESENT ILLNESS: 77F history of HTN DM Asthma COPD presents to the hospital with 1 week history of SOB. patient states she has been taking 40mg po of prednisone and called Dr. Perea from pulmonology yesterday and he told her to take steroids but she did not tell him she has been taking them all along. She Denies nausea vomiting fever chills chest pain diarrhea constipation urinary symptoms or lower extremity edema. She endorses cough with white sputum production. She endorses she is getting a yeast infection from the steroid use and blood sugar spikes. ER course was notable for: (1)Steroids (2)Benulizers (3)Labs CXR Recent Travel:Denies PAST MEDICAL HISTORY:As above PAST SURGICAL HISTORY: Tubal ligation, bilateral breast biopsies Social History: Smokin years ago Alcohol: drinks beer occasionally - last drink 3 months ago Drugs: denies Family History: Father of cancer Allergies Iodinated Contrast- Oral and IV Dye [IV Dye, Iodine Containing Contrast ] Allergy (Unknown, Verified 02/14/18 07:14) tetracycline [Tetracycline] Allergy (Unknown, Verified 02/14/18 07:14) shellfish derived Allergy (Verified 02/14/18 07:14) HOME MEDICATIONS: Home Medications Medication Instructions Recorded Arformoterol Tartrate [Brovana] 15 mcg IH DAILY 01/02/15 Losartan Potassium 50 mg PO DAILY 01/02/15 metFORMIN HCL [Metformin HCl] 500 mg PO TID 01/02/15 Albuterol 0.083% Nebulizer Delmi 1 neb NEB Q4H PRN #1 box 10/12/15 [Ventolin 0.083% Nebulizer Soln -] Montelukast Na [Singulair -] 10 mg PO HS #30 tablet 05/01/16 Prednisone 40 mg PO DAILY #40 tab.ds.pk 05/18/17 Tiotropium [place] [Spiriva] 1 inh IH DAILY #7 cap.w.dev 05/20/17 REVIEW OF SYSTEMS CONSTITUTIONAL: Absent: fever, chills, diaphoresis, generalized weakness, malaise, loss of appetite, weight change HEENT: Absent: rhinorrhea, nasal congestion, throat pain, throat swelling, difficulty swallowing, mouth swelling, ear pain, eye pain, visual changes CARDIOVASCULAR: Absent: chest pain, syncope, palpitations, irregular heart rate, lightheadedness , peripheral edema RESPIRATORY: Absent: orthopnea, stridor, hemoptysis Present: shortness of breath, dyspnea with exertion, wheezing, cough, white sputum production GASTROINTESTINAL: Absent: abdominal pain, abdominal distension, nausea, vomiting, diarrhea, constipation, melena, hematochezia GENITOURINARY: Absent: dysuria, frequency, urgency, hesitancy, hematuria, flank pain, genital pain Present: Yeast infection MUSCULOSKELETAL: Absent: myalgia, arthralgia, joint swelling, back pain, neck pain SKIN: Absent: rash, itching, pallor HEMATOLOGIC/IMMUNOLOGIC: Absent: easy bleeding, easy bruising, lymphadenopathy, frequent infections ENDOCRINE: Absent: unexplained weight gain, unexplained weight loss, heat intolerance, cold intolerance NEUROLOGIC: Absent: headache, focal weakness or paresthesias, dizziness, unsteady gait, seizure, mental status changes, bladder or bowel incontinence PSYCHIATRIC: Absent: anxiety, depression, suicidal or homicidal ideation, hallucinations. PHYSICAL EXAMINATION Vital Signs - 24 hr 02/14/18 02/14/18 02/14/18 07:16 08:55 10:02 Temperature 97.8 F 98.1 F 97.6 F Pulse Rate 84 87 Pulse Rate [ 87 86 Left Apical] Respiratory 20 16 16 Rate Blood Pressure 158/57 L Blood Pressure 131/78 179/62 H [Left Arm] O2 Sat by Pulse 97 98 97 Oximetry (%) GENERAL: Awake, alert, and fully oriented, in no acute distress. HEAD: Normal with no signs of trauma. EYES: Pupils equal, round and reactive to light, extraocular movements intact. wearing glasses EARS, NOSE, THROAT: Moist mucous membranes. NECK: Normal range of motion, supple without JVD LUNGS: occasional expiratory wheezing. Able to speak in full sentences. Walking around. HEART: Regular rate and rhythm, normal S1 and S2 ABDOMEN: Soft, nontender, not distended MUSCULOSKELETAL: No CVA tenderness. UPPER EXTREMITIES: warm, well-perfused.No peripheral edema. LOWER EXTREMITIES: warm, well-perfused. No calf tenderness. No peripheral edema. NEUROLOGICAL: Cranial nerves II-XII intact. Normal speech. Normal gait. PSYCHIATRIC: Cooperative. Good eye contact. Appropriate mood and affect. SKIN: Warm, dry Laboratory Results - last 24 hr 02/14/18 02/14/18 08:45 08:45 WBC 16.0 H RBC 4.98 Hgb 13.3 Hct 42.6 MCV 85.5 MCH 26.8 MCHC 31.3 L RDW 14.3 Plt Count 210 D MPV 10.2 D Absolute Neuts (auto) 11.2 H Neutrophils % 69.9 Neutrophils % (Manual) 68.0 Band Neutrophils % 1.0 Lymphocytes % 18.6 Lymphocytes % (Manual) 21.0 D Monocytes % 10.6 H Monocytes % (Manual) 9 Eosinophils % 0.6 Eosinophils % (Manual) 0.0 D Basophils % 0.3 Basophils % (Manual) 0.0 Myelocytes % (Man) 0 D Promyelocytes % (Man) 0 Blast Cells % (Manual) 0 Nucleated RBC % 0 Metamyelocytes 0 D Hypochromia 0 Platelet Estimate Normal Polychromasia 0 Poikilocytosis 0 Anisocytosis 0 Microcytosis 0 Macrocytosis 0 Sodium 139 Potassium 4.8 Chloride 104 Carbon Dioxide 26 Anion Gap 9 BUN 32 H Creatinine 0.9 Creat Clearance w eGFR > 60 Random Glucose 281 H Calcium 10.2 H Total Bilirubin 0.4 AST 10 L ALT 29 Alkaline Phosphatase 66 Total Protein 6.9 Albumin 3.7 CXR: No acute pathology ASSESSMENT/PLAN: 77F with history of HTN, DM, Asthma, and COPD, presents to the hospital with a one week history of shortness of breath. Shortness of breath: Acute exacerbation of asthma and COPD: Patient has been on prednisone 40mg po daily for 1 week and has failed outpatient treatment. Admit to inpatient med/surg pulmonology consult got IVF in ER continue with solu-medrol 40mg IV BID O2 PRN Restart Brovana restart spiriva duonebs albuterol nebs HTN: Continue losartan 50mg po daily DM: Hyperglycemic likely secondary to steroid use hold metformin-patient got it today ISS TIDAC BGM TIDAC Yeast infection: from steroid use give one dose of diflucan 150mg po FEN: No IVF No electrolyte issues Diabetic diet PPx: SCDs/Lovenox Early ambulation Case discussed with Dr. Barbosa Visit type - Emergency Visit Emergency Visit: Yes ED Registration Date: 02/14/18 Care time: The patient presented to the Emergency Department on the above date and was hospitalized for further evaluation of their emergent condition. - New Patient This patient is new to me today: Yes Date on this admission: 02/14/18 - Critical Care Critical Care patient: No
[2018-02-14] MEDS ORDERED: ARFORMOTEROL TARTRATE 15 MCG/2 ML VIAL NEB SCH (12:45)
[2018-02-14 15:33] VITALS: BMI 38.2
--- NOTE | 2018-02-14 15:37 | PN ---
Teaching Attending Note Name of Resident: Jaime Martinez ATTENDING PHYSICIAN STATEMENT I saw and evaluated the patient. I reviewed the resident's note and discussed the case with the resident. I agree with the resident's findings and plan as documented. SUBJECTIVE: This is a 77 year old woman with a history of HTN, type 2 DM, asthma , COPD who comes to the ED complaining of SOB. She has been taking Prednisone 40 mg daily without improvement. She has a cough with white sputum. She denies fever, chills. OBJECTIVE: Vital Signs Period Temp Pulse Resp BP Sys/Stallings Pulse Ox Last 24 Hr 97.4 F-98.1 F 79-88 16-20 131-179/57-78 97-98 HEART: S1S2, RRR LUNGS: Expiratory wheezes ABDOMEN: Obese, soft, non-tender, non-distended, normal BS EXTREMITIES: No edema Laboratory Tests 02/14/18 02/14/18 08:45 08:45 WBC 16.0 H RBC 4.98 Hgb 13.3 Hct 42.6 MCV 85.5 MCH 26.8 MCHC 31.3 L RDW 14.3 Plt Count 210 D MPV 10.2 D Absolute Neuts (auto) 11.2 H Neutrophils % 69.9 Neutrophils % (Manual) 68.0 Band Neutrophils % 1.0 Lymphocytes % 18.6 Lymphocytes % (Manual) 21.0 D Monocytes % 10.6 H Monocytes % (Manual) 9 Eosinophils % 0.6 Eosinophils % (Manual) 0.0 D Basophils % 0.3 Basophils % (Manual) 0.0 Myelocytes % (Man) 0 D Promyelocytes % (Man) 0 Blast Cells % (Manual) 0 Nucleated RBC % 0 Metamyelocytes 0 D Hypochromia 0 Platelet Estimate Normal Polychromasia 0 Poikilocytosis 0 Anisocytosis 0 Microcytosis 0 Macrocytosis 0 Sodium 139 Potassium 4.8 Chloride 104 Carbon Dioxide 26 Anion Gap 9 BUN 32 H Creatinine 0.9 Creat Clearance w eGFR > 60 Random Glucose 281 H Calcium 10.2 H Total Bilirubin 0.4 AST 10 L ALT 29 Alkaline Phosphatase 66 Total Protein 6.9 Albumin 3.7 Home Medications Medication Instructions Recorded Arformoterol Tartrate [Brovana] 15 mcg IH DAILY 01/02/15 Losartan Potassium 50 mg PO DAILY 01/02/15 metFORMIN HCL [Metformin HCl] 500 mg PO TID 01/02/15 Albuterol 0.083% Nebulizer Delmi 1 neb NEB Q4H PRN #1 box 10/12/15 [Ventolin 0.083% Nebulizer Soln -] Montelukast Na [Singulair -] 10 mg PO HS #30 tablet 05/01/16 Prednisone 40 mg PO DAILY #40 tab.ds.pk 05/18/17 Tiotropium [place] [Spiriva] 1 inh IH DAILY #7 cap.w.dev 05/20/17 ASSESSMENT AND PLAN: This is a 77 year old woman with a history of HTN, type 2 DM, asthma, COPD who presented to the ED with SOB despite treatment with Prednisone. 1. Acute exacerbation of asthma/COPD - Failed outpatient treatment with Prednisone - Start SoluMedrol - Continue Brovana, Spiriva, Singulair - Albuterol nebs as needed 2. HTN - Continue Cozaar 3. Type 2 DM - Hold metformin - Fingersticks with Novolog sliding scale 4. Obesity with BMI 38.3
[2018-02-14] MEDS ORDERED: IPRATROPIUM BR 0.02% 0.5 MG/2.5 ML VIAL.NEB. NEB SCH (16:00)
--- NOTE | 2018-02-14 16:14 | PN ---
Progress Note (short form) - Note Progress Note: PULMONARY CONSULTATION DICTATED 02/14/18 IMP ASTHMA/COPD EXACERBATION DYSPNEA HTN NIDDM PLAN IV STEROIDS INHALED BRONCHODILATORS ICS MONITOR PEAK FLOW GLYCEMIC CONTROL DR BROWN Problem List - Problems (1) Asthma exacerbation in COPD Code(s): J44.1 - CHRONIC OBSTRUCTIVE PULMONARY DISEASE W (ACUTE) EXACERBATION; J45.901 - UNSPECIFIED ASTHMA WITH (ACUTE) EXACERBATION (2) Diabetes Code(s): E11.9 - TYPE 2 DIABETES MELLITUS WITHOUT COMPLICATIONS (3) Hypertension Code(s): I10 - ESSENTIAL (PRIMARY) HYPERTENSION (4) Osteoarthritis Code(s): M19.90 - UNSPECIFIED OSTEOARTHRITIS, UNSPECIFIED SITE (5) Dyspnea Code(s): R06.00 - DYSPNEA, UNSPECIFIED
--- NOTE | 2018-02-14 16:40 | CONS ---
PULMONARY CONSULTATION DATE OF CONSULTATION: 02/14/2018 REFERRING PHYSICIAN: Dave Barbosa MD HISTORY OF PRESENT ILLNESS: The patient is a 77-year-old black female, known to me in previous hospitalization as well as office followup, with past medical history of asthma, COPD, diabetes, hypertension, admitted to [facility], complaining of a 1-week history of increasing shortness of breath. The patient states she started developing the above symptoms a week ago. At the time, she increased her prednisone on her own. She initially had some improvement and then her symptoms started worsening. She called me yesterday with the above complaint, at which time I advised her to go to the emergency room, but she waited until this morning. In the ER, she was treated with inhaled bronchodilators and steroids with some improvement and transferred up to the floor for further management. She denies any fevers, chills, nausea, vomiting, diaphoresis. Denies any chest pain or palpitations. She has a cough which is productive of white sputum. Denies any hemoptysis. There is no history of recent travel. There is no history of DVT or PE in the past. PAST MEDICAL HISTORY: Again includes hypertension, diabetes, asthma, COPD. REVIEW OF SYSTEMS: Positive cough. Positive shortness of breath. Positive wheezing. No chest pain. No palpitations. No abdominal pain or lower extremity edema. SOCIAL HISTORY: History of tobacco use; quit greater than 30 years ago. No occupational exposures. CURRENT MEDICATIONS: Include Solu-Medrol of 40 b.i.d., Tylenol, Cozaar, Lovenox , albuterol, Brovana, Atrovent, NovoLog, Singulair. PHYSICAL EXAMINATION: General: The patient is a well-developed, well-nourished female, awake, alert, in no acute distress. Vital signs: She is afebrile, blood pressure 163/75, respiratory rate is 16, O2 saturation is 98% on room air. HEENT: Exam is normocephalic, atraumatic. Neck: Supple. Heart: reg,S1 and S2. Chest: Scattered bilateral wheezes. Abdomen: Soft. Bowel sounds are positive. Extremities: No cyanosis, edema. LABORATORIES: WBC is 16, hemoglobin 13.3, hematocrit 42.6, with a platelet count of 210,000. BUN 32, creatinine 0.9. Chest x-ray: No infiltrates and no effusions. IMPRESSION: 1. Acute asthma/chronic obstructive pulmonary disease exacerbation. 2. Hypertension. 3. Diabetes. PLAN: IV steroids; we will increase this to q.6 hours. Inhaled bronchodilators. Supplemental O2. Monitor peak flow. Glycemic control on increased-dose steroids. EUGENIA BROWN M.D. [id number] MTDD
[2018-02-14] MEDS: INSULIN SLIDING SCALE (NOVOLOG) 1 VIAL SQ SCH (17:06)
[2018-02-14] MEDS: MOMETASONE FUROATE 220 MCG/IH INHALER IH SCH (17:42)
[2018-02-14] MEDS: methylPREDNISolone NA SUCC 40 MG/1 ML VIAL IVPUSH SCH (21:32)
[2018-02-14] MEDS: MONTELUKAST NA 10 MG TABLET PO SCH (21:32)
[2018-02-14] MEDS: ARFORMOTEROL TARTRATE 15 MCG/2 ML VIAL NEB SCH (21:49)
[2018-02-14] MEDS ORDERED: methylPREDNISolone NA SUCC 40 MG/1 ML VIAL IVPUSH SCH (22:00)
[2018-02-15] MEDS: ZOLPIDEM TARTRATE 5 MG TABLET PO PRN ×2 (02:00→23:08)
[2018-02-15] MEDS: methylPREDNISolone NA SUCC 40 MG/1 ML VIAL IVPUSH SCH ×4 (02:00→21:51)
[2018-02-15] MEDS ORDERED: INSULIN (NOVOLOG) ASPART 100 UNITS/ML 10ML VIAL ONE ×5 (06:16→20:53)
[2018-02-15] MEDS: INSULIN SLIDING SCALE (NOVOLOG) 1 VIAL SQ SCH ×3 (06:49→16:34)
[2018-02-15 07:31] LABS: BASO % 0.1 % (0-2.0); HEMATOCRIT 40.3 % (32.4-45.2); HEMOGLOBIN 12.4 GM/dL (10.7-15.3); LYMPH % 10.2 % (8-40); MCH 26.4 pg (25.7-33.7); MCHC 30.6 g/dl (32.0-36.0); MEAN CELL VOLUME 86.1 fl (80-96); MEAN PLT VOLUME 10.8 fl (7.5-11.1); MONO % 5.1 % (3.8-10.2); NEUT % 84.6 % (42.8-82.8); PLATELET COUNT 191 K/MM3 (134-434); RBC 4.68 M/mm3 (3.60-5.2); RDW 14.4 % (11.6-15.6); WHITE BLOOD COUNT 14.3 K/mm3 (4.0-10.0)
[2018-02-15 08:05] LABS: ANION GAP 8 MMOL/L (8-16); BLOOD UREA NITROGEN 27 mg/dL (7-18); CALCIUM 8.9 mg/dL (8.5-10.1); CHLORIDE 103 mmol/L (98-107); CO2 27 mmol/L (21-32); CREATININE 0.7 mg/dL (0.55-1.3); GLUCOSE,RANDOM 284 mg/dL (74-106); MAGNESIUM 2.2 mg/dL (1.8-2.4); PHOSPHOROUS 3.8 mg/dL (2.5-4.9); POTASSIUM 4.8 mmol/L (3.5-5.1); SODIUM 137 mmol/L (136-145)
[2018-02-15] MEDS: ARFORMOTEROL TARTRATE 15 MCG/2 ML VIAL NEB SCH ×2 (09:37→21:00)
[2018-02-15] MEDS ORDERED: TIOTROPIUM BROMIDE 2.5 MCG (SPIRIVA) RESPIMAT INHALER IH SCH (10:00)
[2018-02-15] MEDS ORDERED: PT OWN MED DRAWER 7, Y5N ONE ×2 (10:32→14:31)
[2018-02-15] MEDS: MOMETASONE FUROATE 220 MCG/IH INHALER IH SCH (11:04)
[2018-02-15] MEDS: LOSARTAN POTASSIUM 50 MG TABLET (FP) PO SCH (11:05)
[2018-02-15] MEDS: ENOXAPARIN NA (PORCINE) 40 MG/0.4 ML DISP.SYRIN SQ SCH (11:05)
--- NOTE | 2018-02-15 12:00 | PN ---
Physical Exam: SUBJECTIVE: Patient seen and examined. She feels SOB with exertion. OBJECTIVE: Vital Signs Period Temp Pulse Resp BP Sys/Stallings Pulse Ox Last 24 Hr 97.4 F-98.7 F 76-91 16-20 134-163/56-90 96-98 GENERAL: The patient is awake, alert, and fully oriented, in no acute distress. LUNGS: Breath sounds equal, bilateral expiratory wheezes, no accessory muscle use, coughs with deep inspiration. HEART: Regular rate and rhythm, S1, S2 without murmur, rub or gallop. ABDOMEN: Obese, soft, nontender, nondistended, normoactive bowel sounds, no guarding, no rebound, no hepatosplenomegaly, no masses. EXTREMITIES: 2+ pulses, warm, well-perfused, no edema. Laboratory Results - last 24 hr 02/14/18 02/15/18 02/15/18 17:05 06:00 06:00 WBC 14.3 H RBC 4.68 Hgb 12.4 Hct 40.3 MCV 86.1 MCH 26.4 MCHC 30.6 L RDW 14.4 Plt Count 191 MPV 10.8 Absolute Neuts (auto) 12.1 H Neutrophils % 84.6 H D Lymphocytes % 10.2 D Monocytes % 5.1 Eosinophils % 0.0 D Basophils % 0.1 Nucleated RBC % 0 Sodium 137 Potassium 4.8 Chloride 103 Carbon Dioxide 27 Anion Gap 8 BUN 27 H Creatinine 0.7 Creat Clearance w eGFR > 60 POC Glucometer 352 Random Glucose 284 H Calcium 8.9 Phosphorus 3.8 Magnesium 2.2 02/15/18 06:48 WBC RBC Hgb Hct MCV MCH MCHC RDW Plt Count MPV Absolute Neuts (auto) Neutrophils % Lymphocytes % Monocytes % Eosinophils % Basophils % Nucleated RBC % Sodium Potassium Chloride Carbon Dioxide Anion Gap BUN Creatinine Creat Clearance w eGFR POC Glucometer 279 Random Glucose Calcium Phosphorus Magnesium Active Medications Generic Name Dose Route Start Last Admin Trade Name Freq PRN Reason Stop Dose Admin Acetaminophen 650 mg 02/14/18 12:35 Tylenol - PO Q4H PRN PAIN OR FEVER Albuterol Sulfate 1 amp 02/14/18 12:35 Ventolin 0.083% Nebulizer Soln - NEB Q4H PRN SHORT OF BREATH/WHEEZING Arformoterol Tartrate 1 amp 02/14/18 22:00 02/15/18 09:37 Brovana (Restricted To Pulmonology/Resp) - NEB 1 amp BID CORNELL Administration Enoxaparin Sodium 40 mg 02/15/18 10:00 02/15/18 11:05 Lovenox - SQ 40 mg DAILY CORNELL Administration Insulin Aspart 1 vial 02/14/18 16:30 02/15/18 06:49 Novolog Vial Sliding Scale - SQ 6 units TIDAC CORNELL Administration Protocol Losartan Potassium 50 mg 02/15/18 10:00 02/15/18 11:05 Cozaar - PO 50 mg DAILY CORNELL Administration Methylprednisolone Sodium Succinate 40 mg 02/14/18 21:00 02/15/18 11:05 Solu-Medrol - IVPUSH 40 mg Q6H-IV CORNELL Administration Mometasone Furoate 2 puff 02/14/18 17:00 02/15/18 11:04 Asmanex 220mcg - IH 2 puff DAILY CORNELL Administration Montelukast Sodium 10 mg 02/14/18 22:00 02/14/18 21:32 Singulair - PO 10 mg HS CORNELL Administration Tiotropium [place] 2 puff 02/15/18 10:00 Spiriva Respimat IH DAILY CORNELL Zolpidem Tartrate 5 mg 02/14/18 16:16 02/15/18 02:00 Ambien - PO 5 mg HS PRN Administration INSOMNIA ASSESSMENT/PLAN: This is a 77 year old woman with a history of HTN, type 2 DM, asthma, COPD who presented to the ED with SOB despite treatment with Prednisone. 1. Acute exacerbation of asthma/COPD - Failed outpatient treatment with Prednisone - Continue SoluMedrol, Brovana, Asmanex, Spiriva, Singulair, Albuterol nebs as needed 2. HTN - Continue Cozaar 3. Type 2 DM - Metformin held - Hyperglycemia secondary to steroids - Continue Novolog sliding scale - Start Levemir - Check HbA1c 4. Obesity with BMI 37.8 Visit type - Emergency Visit Emergency Visit: Yes ED Registration Date: 02/14/18 Care time: The patient presented to the Emergency Department on the above date and was hospitalized for further evaluation of their emergent condition. - New Patient This patient is new to me today: No - Critical Care Critical Care patient: No - Discharge Referral Referred to [facility] Med P.C.: No
[2018-02-15] MEDS: ALBUTEROL SO4 0.083% IH SOL 2.5 MG/3 ML VIAL.NEB. NEB PRN (12:50)
--- NOTE | 2018-02-15 14:59 | PN ---
Progress Note, Physician History of Present Illness: pulmonary alert,oob-chair,less dyspneic,+ cough - Current Medication List Current Medications: Active Medications Acetaminophen (Tylenol -) 650 mg PO Q4H PRN PRN Reason: PAIN OR FEVER Albuterol Sulfate (Ventolin 0.083% Nebulizer Soln -) 1 amp NEB Q4H PRN PRN Reason: SHORT OF BREATH/WHEEZING Last Admin: 02/15/18 12:50 Dose: 1 amp Arformoterol Tartrate (Brovana (Restricted To Pulmonology/Resp) -) 1 amp NEB BID CORNELL Last Admin: 02/15/18 09:37 Dose: 1 amp Enoxaparin Sodium (Lovenox -) 40 mg SQ DAILY CORNELL Last Admin: 02/15/18 11:05 Dose: 40 mg Insulin Aspart (Novolog Vial Sliding Scale -) 1 vial SQ TIDAC CORNELL; Protocol Last Admin: 02/15/18 12:02 Dose: 8 units Losartan Potassium (Cozaar -) 50 mg PO DAILY [facility] Last Admin: 02/15/18 11:05 Dose: 50 mg Methylprednisolone Sodium Succinate (Solu-Medrol -) 40 mg IVPUSH Q6H-IV CORNELL Last Admin: 02/15/18 14:22 Dose: 40 mg Mometasone Furoate (Asmanex 220mcg -) 2 puff IH DAILY CORNELL Last Admin: 02/15/18 11:04 Dose: 2 puff Montelukast Sodium (Singulair -) 10 mg PO HS CORNELL Last Admin: 02/14/18 21:32 Dose: 10 mg Tiotropium [place] (Spiriva Respimat) 2 puff IH DAILY CORNELL Zolpidem Tartrate (Ambien -) 5 mg PO HS PRN PRN Reason: INSOMNIA Last Admin: 02/15/18 02:00 Dose: 5 mg - Objective Vital Signs: Vital Signs Temperature 98.1 F 02/15/18 14:11 Pulse Rate 79 02/15/18 14:11 Respiratory Rate 20 02/15/18 14:11 Blood Pressure 136/67 02/15/18 14:11 O2 Sat by Pulse Oximetry (%) 98 02/15/18 09:00 Constitutional: Yes: Well Nourished, Calm Eyes: Yes: WNL HENT: Yes: WNL Neck: Yes: WNL Cardiovascular: Yes: Regular Rate and Rhythm, S1, S2 Respiratory: Yes: Wheezes (bilateral wheezes) Gastrointestinal: Yes: Normal Bowel Sounds, Soft Extremities: Yes: WNL Edema: No Labs: CBC, BMP 02/15/18 06:00 02/15/18 06:00 Problem List - Problems (1) Asthma exacerbation in COPD Code(s): J44.1 - CHRONIC OBSTRUCTIVE PULMONARY DISEASE W (ACUTE) EXACERBATION; J45.901 - UNSPECIFIED ASTHMA WITH (ACUTE) EXACERBATION (2) Diabetes Code(s): E11.9 - TYPE 2 DIABETES MELLITUS WITHOUT COMPLICATIONS (3) Hypertension Code(s): I10 - ESSENTIAL (PRIMARY) HYPERTENSION (4) Osteoarthritis Code(s): M19.90 - UNSPECIFIED OSTEOARTHRITIS, UNSPECIFIED SITE (5) Dyspnea Code(s): R06.00 - DYSPNEA, UNSPECIFIED Assessment/Plan IMP ASTHMA/COPD EXACERBATION DYSPNEA IMPROVING HTN NIDDM PLAN IV STEROIDS SAME DOSE INHALED BRONCHODILATORS ICS MONITOR PEAK FLOW GLYCEMIC CONTROL DR BROWN Problem List - Problems (1) Asthma exacerbation in COPD Code(s): J44.1 - CHRONIC OBSTRUCTIVE PULMONARY DISEASE W (ACUTE) EXACERBATION; J45.901 - UNSPECIFIED ASTHMA WITH (ACUTE) EXACERBATION (2) Diabetes Code(s): E11.9 - TYPE 2 DIABETES MELLITUS WITHOUT COMPLICATIONS (3) Hypertension Code(s): I10 - ESSENTIAL (PRIMARY) HYPERTENSION (4) Osteoarthritis Code(s): M19.90 - UNSPECIFIED OSTEOARTHRITIS, UNSPECIFIED SITE (5) Dyspnea Code(s): R06.00 - DYSPNEA, UNSPECIFIED
[2018-02-15] MEDS: TIOTROPIUM BROMIDE 2.5 MCG (SPIRIVA) RESPIMAT INHALER IH SCH (16:35)
--- NOTE | 2018-02-15 18:05 | EKG ---
Test Reason : Blood Pressure : / mmHG Vent. Rate : 082 BPM Atrial Rate : 082 BPM P-R Int : 136 ms QRS Dur : 146 ms QT Int : 406 ms P-R-T Axes : 042 014 042 degrees QTc Int : 474 ms NORMAL SINUS RHYTHM RIGHT BUNDLE BRANCH BLOCK ABNORMAL ECG WHEN COMPARED WITH ECG OF 06-MAY-2017 08:38, RIGHT BUNDLE BRANCH BLOCK IS NOW PRESENT Confirmed by OSIEL BAL MD ([id number]) on 02/15/2018 6:05:20 PM Referred By: Confirmed By:OSIEL BAL MD
[2018-02-15] MEDS: INSULIN (LEVEMIR) 100 UNITS/ML UNITS SQ SCH (21:50)
[2018-02-15] MEDS: MONTELUKAST NA 10 MG TABLET PO SCH (21:53)
[2018-02-16] MEDS: methylPREDNISolone NA SUCC 40 MG/1 ML VIAL IVPUSH SCH ×4 (02:56→21:49)
[2018-02-16] MEDS: INSULIN SLIDING SCALE (NOVOLOG) 1 VIAL SQ SCH ×3 (06:17→17:03)
[2018-02-16] MEDS: ENOXAPARIN NA (PORCINE) 40 MG/0.4 ML DISP.SYRIN SQ SCH (09:03)
[2018-02-16] MEDS: LOSARTAN POTASSIUM 50 MG TABLET (FP) PO SCH (09:04)
[2018-02-16] MEDS: TIOTROPIUM BROMIDE 2.5 MCG (SPIRIVA) RESPIMAT INHALER IH SCH (09:05)
[2018-02-16] MEDS: MOMETASONE FUROATE 220 MCG/IH INHALER IH SCH ×2 (09:05→21:50)
[2018-02-16] MEDS: ARFORMOTEROL TARTRATE 15 MCG/2 ML VIAL NEB SCH ×2 (09:10→22:14)
--- NOTE | 2018-02-16 12:34 | PN ---
Progress Note, Physician History of Present Illness: pulmonary alert,feeling better,less dyspneic - Current Medication List Current Medications: Active Medications Acetaminophen (Tylenol -) 650 mg PO Q4H PRN PRN Reason: PAIN OR FEVER Albuterol Sulfate (Ventolin 0.083% Nebulizer Soln -) 1 amp NEB Q4H PRN PRN Reason: SHORT OF BREATH/WHEEZING Last Admin: 02/15/18 12:50 Dose: 1 amp Arformoterol Tartrate (Brovana (Restricted To Pulmonology/Resp) -) 1 amp NEB BID [facility] Last Admin: 02/16/18 09:10 Dose: 1 amp Enoxaparin Sodium (Lovenox -) 40 mg SQ DAILY [facility] Last Admin: 02/16/18 09:03 Dose: 40 mg Insulin Aspart (Novolog Vial Sliding Scale -) 1 vial SQ TIDAC [facility]; Protocol Last Admin: 02/16/18 12:08 Dose: 8 units Insulin Detemir (Levemir Vial) 10 units SQ HS [facility] Last Admin: 02/15/18 21:50 Dose: 10 units Losartan Potassium (Cozaar -) 50 mg PO DAILY [facility] Last Admin: 02/16/18 09:04 Dose: 50 mg Methylprednisolone Sodium Succinate (Solu-Medrol -) 40 mg IVPUSH Q6H-IV [facility] Last Admin: 02/16/18 09:04 Dose: 40 mg Mometasone Furoate (Asmanex 220mcg -) 2 puff IH DAILY [facility] Last Admin: 02/16/18 09:05 Dose: 2 puff Montelukast Sodium (Singulair -) 10 mg PO HS [facility] Last Admin: 02/15/18 21:53 Dose: 10 mg Tiotropium [place] (Spiriva Respimat) 2 puff IH DAILY [facility] Last Admin: 02/16/18 09:05 Dose: 2 puff Zolpidem Tartrate (Ambien -) 5 mg PO HS PRN PRN Reason: INSOMNIA Last Admin: 02/15/18 23:08 Dose: 5 mg - Objective Vital Signs: Vital Signs Temperature 98.5 F 02/16/18 10:00 Pulse Rate 71 02/16/18 10:00 Respiratory Rate 20 02/16/18 10:00 Blood Pressure 153/85 02/16/18 10:00 O2 Sat by Pulse Oximetry (%) 98 02/16/18 09:00 Constitutional: Yes: Well Nourished, Calm Eyes: Yes: WNL HENT: Yes: WNL Neck: Yes: WNL Cardiovascular: Yes: Regular Rate and Rhythm, S1, S2 Respiratory: Yes: Wheezes (scattered yuridia wheezes) Gastrointestinal: Yes: Normal Bowel Sounds, Soft Extremities: Yes: WNL Edema: No Labs: CBC, BMP Problem List - Problems (1) Asthma exacerbation in COPD Code(s): J44.1 - CHRONIC OBSTRUCTIVE PULMONARY DISEASE W (ACUTE) EXACERBATION; J45.901 - UNSPECIFIED ASTHMA WITH (ACUTE) EXACERBATION (2) Diabetes Code(s): E11.9 - TYPE 2 DIABETES MELLITUS WITHOUT COMPLICATIONS (3) Hypertension Code(s): I10 - ESSENTIAL (PRIMARY) HYPERTENSION (4) Osteoarthritis Code(s): M19.90 - UNSPECIFIED OSTEOARTHRITIS, UNSPECIFIED SITE (5) Dyspnea Code(s): R06.00 - DYSPNEA, UNSPECIFIED Assessment/Plan IMP ASTHMA/COPD EXACERBATION DYSPNEA IMPROVING HTN NIDDM PLAN IV STEROIDS SAME DOSE INHALED BRONCHODILATORS ICS MONITOR PEAK FLOW GLYCEMIC CONTROL DR BROWN Problem List - Problems (1) Asthma exacerbation in COPD Code(s): J44.1 - CHRONIC OBSTRUCTIVE PULMONARY DISEASE W (ACUTE) EXACERBATION; J45.901 - UNSPECIFIED ASTHMA WITH (ACUTE) EXACERBATION (2) Diabetes Code(s): E11.9 - TYPE 2 DIABETES MELLITUS WITHOUT COMPLICATIONS (3) Hypertension Code(s): I10 - ESSENTIAL (PRIMARY) HYPERTENSION (4) Osteoarthritis Code(s): M19.90 - UNSPECIFIED OSTEOARTHRITIS, UNSPECIFIED SITE (5) Dyspnea Code(s): R06.00 - DYSPNEA, UNSPECIFIED
[2018-02-16] MEDS: ALBUTEROL SO4 0.083% IH SOL 2.5 MG/3 ML VIAL.NEB. NEB PRN ×2 (13:46→19:33)
--- NOTE | 2018-02-16 14:15 | PN ---
Physical Exam: SUBJECTIVE: Patient seen and examined sitting on edge of bed. Feels better. OBJECTIVE: Vital Signs Period Temp Pulse Resp BP Sys/Stallings Pulse Ox Last 24 Hr 98.1 F-98.5 F 70-75 20-20 142-153/71-90 98-98 GENERAL: The patient is awake, alert, and fully oriented, in no acute distress. LUNGS: Breath sounds equal, bilateral expiratory wheezes, no accessory muscle use HEART: Regular rate and rhythm, S1, S2 without murmur, rub or gallop. ABDOMEN: Obese, soft, nontender, nondistended, normoactive bowel sounds, no guarding, no rebound, no hepatosplenomegaly, no masses. EXTREMITIES: 2+ pulses, warm, well-perfused, no edema. CBCD WBC 14.3 K/mm3 (4.0-10.0) H 02/15/18 06:00 RBC 4.68 M/mm3 (3.60-5.2) 02/15/18 06:00 Hgb 12.4 GM/dL (10.7-15.3) 02/15/18 06:00 Hct 40.3 % (32.4-45.2) 02/15/18 06:00 MCV 86.1 fl (80-96) 02/15/18 06:00 MCHC 30.6 g/dl (32.0-36.0) L 02/15/18 06:00 RDW 14.4 % (11.6-15.6) 02/15/18 06:00 Plt Count 191 K/MM3 (134-434) 02/15/18 06:00 MPV 10.8 fl (7.5-11.1) 02/15/18 06:00 CMP Sodium 137 mmol/L (136-145) 02/15/18 06:00 Potassium 4.8 mmol/L (3.5-5.1) 02/15/18 06:00 Chloride 103 mmol/L (98-107) 02/15/18 06:00 Carbon Dioxide 27 mmol/L (21-32) 02/15/18 06:00 Anion Gap 8 MMOL/L (8-16) 02/15/18 06:00 BUN 27 mg/dL (7-18) H 02/15/18 06:00 Creatinine 0.7 mg/dL (0.55-1.3) 02/15/18 06:00 Creat Clearance w eGFR > 60 (>60) 02/15/18 06:00 Calcium 8.9 mg/dL (8.5-10.1) 02/15/18 06:00 Total Bilirubin 0.4 mg/dL (0.2-1) 02/14/18 08:45 AST 10 U/L (15-37) L 02/14/18 08:45 ALT 29 U/L (13-61) 02/14/18 08:45 Alkaline Phosphatase 66 U/L (45-117) 02/14/18 08:45 Total Protein 6.9 g/dl (6.4-8.2) 02/14/18 08:45 Albumin 3.7 g/dl (3.4-5.0) 02/14/18 08:45 Laboratory Results - last 24 hr 02/15/18 02/15/18 02/16/18 16:27 21:49 06:15 POC Glucometer 353 317 319 Hemoglobin A1c % 02/16/18 02/16/18 06:20 11:30 POC Glucometer 346 Hemoglobin A1c % 8.1 H Active Medications Generic Name Dose Route Start Last Admin Trade Name Freq PRN Reason Stop Dose Admin Acetaminophen 650 mg 02/14/18 12:35 Tylenol - PO Q4H PRN PAIN OR FEVER Albuterol Sulfate 1 amp 02/14/18 12:35 02/16/18 13:46 Ventolin 0.083% Nebulizer Soln - NEB 1 amp Q4H PRN Administration SHORT OF BREATH/WHEEZING Arformoterol Tartrate 1 amp 02/14/18 22:00 02/16/18 09:10 Brovana (Restricted To Pulmonology/Resp) - NEB 1 amp BID [facility] Administration Enoxaparin Sodium 40 mg 02/15/18 10:00 02/16/18 09:03 Lovenox - SQ 40 mg DAILY [facility] Administration Insulin Aspart 1 vial 02/14/18 16:30 02/16/18 12:08 Novolog Vial Sliding Scale - SQ 8 units TIDAC [facility] Administration Protocol Insulin Detemir 10 units 02/15/18 22:00 02/15/18 21:50 Levemir Vial SQ 10 units HS [facility] Administration Losartan Potassium 50 mg 02/15/18 10:00 02/16/18 09:04 Cozaar - PO 50 mg DAILY [facility] Administration Methylprednisolone Sodium Succinate 40 mg 02/14/18 21:00 02/16/18 13:59 Solu-Medrol - IVPUSH 40 mg Q6H-IV [facility] Administration Mometasone Furoate 2 puff 02/16/18 22:00 Asmanex 220mcg - IH BID [facility] Montelukast Sodium 10 mg 02/14/18 22:00 02/15/18 21:53 Singulair - PO 10 mg HS [facility] Administration Tiotropium [place] 2 puff 02/15/18 10:00 02/16/18 09:05 Spiriva Respimat IH 2 puff DAILY [facility] Administration Zolpidem Tartrate 5 mg 02/14/18 16:16 02/15/18 23:08 Ambien - PO 5 mg HS PRN Administration INSOMNIA ASSESSMENT/PLAN: This is a 77 year old woman with a history of HTN, NIDDM, asthma, COPD who presented to the ED with SOB despite treatment with prednisone. 1. Acute exacerbation of asthma/COPD - Failed outpatient treatment with prednisone - Continue SoluMedrol, Brovana, Asmanex, Spiriva, Singulair, Albuterol nebs as needed 2. HTN - Continue Cozaar 3. NIDDM - HbA1c: 8.1 - Metformin held - Hyperglycemia secondary to steroids - Continue Novolog sliding scale - Levemir started 02/15, will continue FEN Fluids: PO intake adequate Electrolytes: replete as indicated Nutrition: diabetic, low sodium DVT prophylaxis: lovenox Physical therapy Dispo: continues to require inpatient care. Full code. Visit type - Emergency Visit Emergency Visit: Yes ED Registration Date: 02/14/18 Care time: The patient presented to the Emergency Department on the above date and was hospitalized for further evaluation of their emergent condition. - New Patient This patient is new to me today: Yes Date on this admission: 02/16/18 - Critical Care Critical Care patient: No
[2018-02-16] MEDS ORDERED: INSULIN (NOVOLOG) ASPART 100 UNITS/ML 10ML VIAL ONE (19:03)
[2018-02-16] MEDS: INSULIN (LEVEMIR) 100 UNITS/ML UNITS SQ SCH (21:51)
[2018-02-16] MEDS: MONTELUKAST NA 10 MG TABLET PO SCH (21:52)
[2018-02-16] MEDS: ZOLPIDEM TARTRATE 5 MG TABLET PO PRN (22:59)
[2018-02-17] MEDS: methylPREDNISolone NA SUCC 40 MG/1 ML VIAL IVPUSH SCH ×4 (02:11→21:48)
[2018-02-17] MEDS: INSULIN SLIDING SCALE (NOVOLOG) 1 VIAL SQ SCH ×3 (06:03→18:16)
[2018-02-17] MEDS ORDERED: INSULIN (LEVEMIR) 100 UNITS/ML UNITS SQ ONE (06:47)
[2018-02-17] MEDS ORDERED: INSULIN (NOVOLOG) ASPART 100 UNITS/ML 10ML VIAL ONE (06:47)
[2018-02-17] MEDS: ARFORMOTEROL TARTRATE 15 MCG/2 ML VIAL NEB SCH ×2 (09:20→22:00)
[2018-02-17] MEDS: MOMETASONE FUROATE 220 MCG/IH INHALER IH SCH ×2 (09:45→21:56)
[2018-02-17] MEDS: TIOTROPIUM BROMIDE 2.5 MCG (SPIRIVA) RESPIMAT INHALER IH SCH (09:45)
[2018-02-17] MEDS: LOSARTAN POTASSIUM 50 MG TABLET (FP) PO SCH (09:47)
[2018-02-17] MEDS: ENOXAPARIN NA (PORCINE) 40 MG/0.4 ML DISP.SYRIN SQ SCH (09:47)
--- NOTE | 2018-02-17 11:10 | PN ---
Progress Note (short form) - Note Progress Note: PULMONARY Breathing improving. Still with some cough and wheezing. Able to ambulate down hallway without difficulty. Vital Signs Period Temp Pulse Resp BP Sys/Stallings Pulse Ox Last 24 Hr 97.2 F-98.4 F 68-78 20-20 126-150/58-74 97 Gen: NAD at rest Heart: RRR Lung: scattered rhonchi, wheezes Abd: soft, nontender Ext: no edema CBC, BMP 02/15/18 06:00 02/15/18 06:00 Active Medications Acetaminophen (Tylenol -) 650 mg PO Q4H PRN PRN Reason: PAIN OR FEVER Albuterol Sulfate (Ventolin 0.083% Nebulizer Soln -) 1 amp NEB Q4H PRN PRN Reason: SHORT OF BREATH/WHEEZING Last Admin: 02/16/18 19:33 Dose: 1 amp Arformoterol Tartrate (Brovana (Restricted To Pulmonology/Resp) -) 1 amp NEB BID [facility] Last Admin: 02/17/18 09:20 Dose: 1 amp Enoxaparin Sodium (Lovenox -) 40 mg SQ DAILY [facility] Last Admin: 02/17/18 09:47 Dose: 40 mg Insulin Aspart (Novolog Vial Sliding Scale -) 1 vial SQ TIDAC [facility]; Protocol Last Admin: 02/17/18 06:03 Dose: 6 units Insulin Detemir (Levemir Vial) 10 units SQ HS [facility] Last Admin: 02/16/18 21:51 Dose: 10 units Losartan Potassium (Cozaar -) 50 mg PO DAILY [facility] Last Admin: 02/17/18 09:47 Dose: 50 mg Methylprednisolone Sodium Succinate (Solu-Medrol -) 40 mg IVPUSH Q6H-IV [facility] Last Admin: 02/17/18 09:43 Dose: 40 mg Mometasone Furoate (Asmanex 220mcg -) 2 puff IH BID [facility] Last Admin: 02/17/18 09:45 Dose: 2 puff Montelukast Sodium (Singulair -) 10 mg PO HS [facility] Last Admin: 02/16/18 21:52 Dose: 10 mg Tiotropium [place] (Spiriva Respimat) 2 puff IH DAILY [facility] Last Admin: 02/17/18 09:45 Dose: 2 puff Zolpidem Tartrate (Ambien -) 5 mg PO HS PRN PRN Reason: INSOMNIA Last Admin: 02/16/18 22:59 Dose: 5 mg A/P Acute COPD Exacerbation HTN DM - will decrease medrol to q8h - inhaled bronchodilators - singulair - O2 to keep SpO2>90% - glucose control while on systemic steroids - DVT prophylaxis
--- NOTE | 2018-02-17 15:17 | PN ---
Physical Exam: SUBJECTIVE: Patient seen and examined oob to chair. Crocheting. OBJECTIVE: Vital Signs Period Temp Pulse Resp BP Sys/Stallings Pulse Ox Last 24 Hr 97.6 F-98.4 F 68-76 18-20 138-150/67-75 97-98 GENERAL: The patient is awake, alert, and fully oriented, in no acute distress. LUNGS: Breath sounds equal, bilateral expiratory wheezes, improved HEART: Regular rate and rhythm, S1, S2 without murmur, rub or gallop. ABDOMEN: Obese, soft, nontender, nondistended, normoactive bowel sounds, no guarding, no rebound, no hepatosplenomegaly, no masses. EXTREMITIES: 2+ pulses, warm, well-perfused, no edema. CBCD WBC 14.3 K/mm3 (4.0-10.0) H 02/15/18 06:00 RBC 4.68 M/mm3 (3.60-5.2) 02/15/18 06:00 Hgb 12.4 GM/dL (10.7-15.3) 02/15/18 06:00 Hct 40.3 % (32.4-45.2) 02/15/18 06:00 MCV 86.1 fl (80-96) 02/15/18 06:00 MCHC 30.6 g/dl (32.0-36.0) L 02/15/18 06:00 RDW 14.4 % (11.6-15.6) 02/15/18 06:00 Plt Count 191 K/MM3 (134-434) 02/15/18 06:00 MPV 10.8 fl (7.5-11.1) 02/15/18 06:00 CMP Sodium 137 mmol/L (136-145) 02/15/18 06:00 Potassium 4.8 mmol/L (3.5-5.1) 02/15/18 06:00 Chloride 103 mmol/L (98-107) 02/15/18 06:00 Carbon Dioxide 27 mmol/L (21-32) 02/15/18 06:00 Anion Gap 8 MMOL/L (8-16) 02/15/18 06:00 BUN 27 mg/dL (7-18) H 02/15/18 06:00 Creatinine 0.7 mg/dL (0.55-1.3) 10/20/18 06:00 Creat Clearance w eGFR > 60 (>60) 02/15/18 06:00 Calcium 8.9 mg/dL (8.5-10.1) 02/15/18 06:00 Total Bilirubin 0.4 mg/dL (0.2-1) 02/14/18 08:45 AST 10 U/L (15-37) L 02/14/18 08:45 ALT 29 U/L (13-61) 02/14/18 08:45 Alkaline Phosphatase 66 U/L (45-117) 02/14/18 08:45 Total Protein 6.9 g/dl (6.4-8.2) 02/14/18 08:45 Albumin 3.7 g/dl (3.4-5.0) 02/14/18 08:45 Laboratory Results - last 24 hr 02/16/18 02/16/18 02/17/18 16:33 21:47 05:58 POC Glucometer 368 374 290 02/17/18 11:50 POC Glucometer 334 Active Medications Generic Name Dose Route Start Last Admin Trade Name Freq PRN Reason Stop Dose Admin Acetaminophen 650 mg 02/14/18 12:35 Tylenol - PO Q4H PRN PAIN OR FEVER Albuterol Sulfate 1 amp 02/14/18 12:35 02/16/18 19:33 Ventolin 0.083% Nebulizer Soln - NEB 1 amp Q4H PRN Administration SHORT OF BREATH/WHEEZING Arformoterol Tartrate 1 amp 02/14/18 22:00 02/17/18 09:20 Brovana (Restricted To Pulmonology/Resp) - NEB 1 amp BID [facility] Administration Enoxaparin Sodium 40 mg 02/15/18 10:00 02/17/18 09:47 Lovenox - SQ 40 mg DAILY [facility] Administration Insulin Aspart 1 vial 02/14/18 16:30 02/17/18 12:21 Novolog Vial Sliding Scale - SQ 8 units TIDAC [facility] Administration Protocol Insulin Detemir 10 units 02/15/18 22:00 02/16/18 21:51 Levemir Vial SQ 10 units HS [facility] Administration Losartan Potassium 50 mg 02/15/18 10:00 02/17/18 09:47 Cozaar - PO 50 mg DAILY [facility] Administration Methylprednisolone Sodium Succinate 40 mg 02/14/18 21:00 02/17/18 09:43 Solu-Medrol - IVPUSH 40 mg Q6H-IV [facility] Administration Mometasone Furoate 2 puff 02/16/18 22:00 02/17/18 09:45 Asmanex 220mcg - IH 2 puff BID [facility] Administration Montelukast Sodium 10 mg 02/14/18 22:00 02/16/18 21:52 Singulair - PO 10 mg HS [facility] Administration Tiotropium [place] 2 puff 02/15/18 10:00 02/17/18 09:45 Spiriva Respimat IH 2 puff DAILY [facility] Administration Zolpidem Tartrate 5 mg 02/14/18 16:16 02/16/18 22:59 Ambien - PO 5 mg HS PRN Administration INSOMNIA ASSESSMENT/PLAN This is a 77 year old woman with a history of HTN, NIDDM, asthma and COPD, admitted for asthma/COPD exacerbation. 1. Acute exacerbation of asthma/COPD - Failed outpatient treatment with prednisone - Continue SoluMedrol, Brovana, Asmanex, Spiriva, Singulair, Albuterol nebs as needed 2. HTN - Continue Cozaar 3. NIDDM - HbA1c: 8.1 - Metformin held - Hyperglycemia secondary to steroids - Continue Novolog sliding scale - increase Levemir to 10mg BID FEN Fluids: PO intake adequate Electrolytes: replete as indicated Nutrition: diabetic, low sodium DVT prophylaxis: lovenox Physical therapy Pre post in am Dispo: continues to require inpatient care. Full code. Visit type - Emergency Visit Emergency Visit: Yes ED Registration Date: 02/14/18 Care time: The patient presented to the Emergency Department on the above date and was hospitalized for further evaluation of their emergent condition. - New Patient This patient is new to me today: No - Critical Care Critical Care patient: No
[2018-02-17] MEDS: ALBUTEROL SO4 0.083% IH SOL 2.5 MG/3 ML VIAL.NEB. NEB PRN (15:38)
[2018-02-17] MEDS ORDERED: PT OWN MED DRAWER 7, Y5N ONE (20:24)
[2018-02-17] MEDS: INSULIN (LEVEMIR) 100 UNITS/ML UNITS SQ SCH (21:49)
[2018-02-17] MEDS: MONTELUKAST NA 10 MG TABLET PO SCH (21:52)
[2018-02-18] MEDS: ZOLPIDEM TARTRATE 5 MG TABLET PO PRN ×2 (00:44→22:51)
[2018-02-18] MEDS: methylPREDNISolone NA SUCC 40 MG/1 ML VIAL IVPUSH SCH ×2 (02:02→21:55)
[2018-02-18] MEDS: INSULIN SLIDING SCALE (NOVOLOG) 1 VIAL SQ SCH ×3 (06:30→17:31)
[2018-02-18] MEDS: INSULIN (LEVEMIR) 100 UNITS/ML UNITS SQ SCH ×2 (06:31→21:53)
[2018-02-18] MEDS ORDERED: INSULIN (LEVEMIR) 100 UNITS/ML UNITS SQ ONE (06:42)
[2018-02-18] MEDS ORDERED: INSULIN (NOVOLOG) ASPART 100 UNITS/ML 10ML VIAL ONE ×2 (06:42→21:06)
[2018-02-18] MEDS ORDERED: methylPREDNISolone NA SUCC 40 MG/1 ML VIAL IVPUSH SCH (08:45)
[2018-02-18] MEDS ORDERED: PT OWN MED DRAWER 7, Y5N ONE ×2 (09:45→17:17)
[2018-02-18] MEDS: LOSARTAN POTASSIUM 50 MG TABLET (FP) PO SCH (09:48)
[2018-02-18] MEDS: ENOXAPARIN NA (PORCINE) 40 MG/0.4 ML DISP.SYRIN SQ SCH (09:49)
[2018-02-18] MEDS: MOMETASONE FUROATE 220 MCG/IH INHALER IH SCH ×2 (09:54→21:53)
[2018-02-18] MEDS: TIOTROPIUM BROMIDE 2.5 MCG (SPIRIVA) RESPIMAT INHALER IH SCH (09:55)
[2018-02-18] MEDS: ARFORMOTEROL TARTRATE 15 MCG/2 ML VIAL NEB SCH ×2 (10:00→22:05)
--- NOTE | 2018-02-18 10:26 | PN ---
Progress Note (short form) - Note Progress Note: PULMONARY Breathing continues to improve. Still with some cough and wheezing. Able to ambulate down hallway without difficulty. Vital Signs Period Temp Pulse Resp BP Sys/Stallings Pulse Ox Last 24 Hr 97.6 F-98 F 64-76 20-20 138-156/64-77 98 Gen: NAD at rest Heart: RRR Lung: less scattered rhonchi, wheezes Abd: soft, nontender Ext: no edema CBC, BMP 02/15/18 06:00 02/15/18 06:00 Active Medications Acetaminophen (Tylenol -) 650 mg PO Q4H PRN PRN Reason: PAIN OR FEVER Albuterol Sulfate (Ventolin 0.083% Nebulizer Soln -) 1 amp NEB Q4H PRN PRN Reason: SHORT OF BREATH/WHEEZING Last Admin: 02/17/18 15:38 Dose: 1 amp Arformoterol Tartrate (Brovana (Restricted To Pulmonology/Resp) -) 1 amp NEB BID [facility] Last Admin: 02/17/18 22:00 Dose: 1 amp Enoxaparin Sodium (Lovenox -) 40 mg SQ DAILY [facility] Last Admin: 02/18/18 09:49 Dose: 40 mg Insulin Aspart (Novolog Vial Sliding Scale -) 1 vial SQ TIDAC [facility]; Protocol Last Admin: 02/18/18 06:30 Dose: 6 units Insulin Detemir (Levemir Vial) 10 units SQ BID@0700,2200 [facility] Last Admin: 02/18/18 06:31 Dose: 10 unit Losartan Potassium (Cozaar -) 50 mg PO DAILY [facility] Last Admin: 02/18/18 09:48 Dose: 50 mg Methylprednisolone Sodium Succinate (Solu-Medrol -) 40 mg IVPUSH Q8H [facility] Last Admin: 02/18/18 09:48 Dose: 40 mg Mometasone Furoate (Asmanex 220mcg -) 2 puff IH BID [facility] Last Admin: 02/18/18 09:54 Dose: 2 puff Montelukast Sodium (Singulair -) 10 mg PO HS [facility] Last Admin: 02/17/18 21:52 Dose: 10 mg Tiotropium [place] (Spiriva Respimat) 2 puff IH DAILY [facility] Last Admin: 02/18/18 09:55 Dose: 2 puff Zolpidem Tartrate (Ambien -) 5 mg PO HS PRN PRN Reason: INSOMNIA Last Admin: 02/18/18 00:44 Dose: 5 mg A/P Acute COPD/Asthma Exacerbation HTN DM - will decrease medrol to q12h, can likely change to PO prednisone 40mg daily in AM - inhaled bronchodilators - singulair - O2 to keep SpO2>90% - glucose control while on systemic steroids - DVT prophylaxis
--- NOTE | 2018-02-18 15:30 | PN ---
Physical Exam: SUBJECTIVE: Patient seen and examined OBJECTIVE: Vital Signs Period Temp Pulse Resp BP Sys/Stallings Pulse Ox Last 24 Hr 97.5 F-98 F 64-74 18-20 138-156/64-77 97-98 CBCD WBC 14.3 K/mm3 (4.0-10.0) H 02/15/18 06:00 RBC 4.68 M/mm3 (3.60-5.2) 02/15/18 06:00 Hgb 12.4 GM/dL (10.7-15.3) 02/15/18 06:00 Hct 40.3 % (32.4-45.2) 02/15/18 06:00 MCV 86.1 fl (80-96) 02/15/18 06:00 MCHC 30.6 g/dl (32.0-36.0) L 02/15/18 06:00 RDW 14.4 % (11.6-15.6) 02/15/18 06:00 Plt Count 191 K/MM3 (134-434) 02/15/18 06:00 MPV 10.8 fl (7.5-11.1) 02/15/18 06:00 CMP Sodium 137 mmol/L (136-145) 02/15/18 06:00 Potassium 4.8 mmol/L (3.5-5.1) 02/15/18 06:00 Chloride 103 mmol/L (98-107) 02/15/18 06:00 Carbon Dioxide 27 mmol/L (21-32) 02/15/18 06:00 Anion Gap 8 MMOL/L (8-16) 02/15/18 06:00 BUN 27 mg/dL (7-18) H 02/15/18 06:00 Creatinine 0.7 mg/dL (0.55-1.3) 02/15/18 06:00 Creat Clearance w eGFR > 60 (>60) 02/15/18 06:00 Calcium 8.9 mg/dL (8.5-10.1) 02/15/18 06:00 Total Bilirubin 0.4 mg/dL (0.2-1) 02/14/18 08:45 AST 10 U/L (15-37) L 02/14/18 08:45 ALT 29 U/L (13-61) 10/19/18 08:45 Alkaline Phosphatase 66 U/L (45-117) 02/14/18 08:45 Total Protein 6.9 g/dl (6.4-8.2) 02/14/18 08:45 Albumin 3.7 g/dl (3.4-5.0) 02/14/18 08:45 Active Medications Generic Name Dose Route Start Last Admin Trade Name Freq PRN Reason Stop Dose Admin Acetaminophen 650 mg 02/14/18 12:35 Tylenol - PO Q4H PRN PAIN OR FEVER Albuterol Sulfate 1 amp 02/14/18 12:35 02/17/18 15:38 Ventolin 0.083% Nebulizer Soln - NEB 1 amp Q4H PRN Administration SHORT OF BREATH/WHEEZING Arformoterol Tartrate 1 amp 02/14/18 22:00 02/18/18 10:00 [place] (Restricted To Pulmonology/Resp) - NEB 1 amp BID [facility] Administration Enoxaparin Sodium 40 mg 02/15/18 10:00 02/18/18 09:49 Lovenox - SQ 40 mg DAILY [facility] Administration Insulin Aspart 1 vial 02/14/18 16:30 02/18/18 12:43 Novolog Vial Sliding Scale - SQ 8 units TIDAC [facility] Administration Protocol Insulin Detemir 10 units 02/18/18 07:00 02/18/18 06:31 Levemir Vial SQ 10 unit BID@0700,2200 [facility] Administration Losartan Potassium 50 mg 02/15/18 10:00 02/18/18 09:48 Cozaar - PO 50 mg DAILY [facility] Administration Methylprednisolone Sodium Succinate 40 mg 02/18/18 22:00 Solu-Medrol - IVPUSH Q12H [facility] Mometasone Furoate 2 puff 02/16/18 22:00 02/18/18 09:54 Asmanex 220mcg - IH 2 puff BID [facility] Administration Montelukast Sodium 10 mg 02/14/18 22:00 02/17/18 21:52 Singulair - PO 10 mg HS [facility] Administration Tiotropium [place] 2 puff 02/15/18 10:00 02/18/18 09:55 Spiriva Respimat IH 2 puff DAILY [facility] Administration Zolpidem Tartrate 5 mg 02/18/18 00:34 02/18/18 00:44 Ambien - PO 5 mg HS PRN Administration INSOMNIA ASSESSMENT/PLAN This is a 77 year old woman with a history of HTN, NIDDM, asthma and COPD, admitted for asthma/COPD exacerbation. 1. Acute exacerbation of asthma/COPD - Failed outpatient treatment with prednisone - Continue SoluMedrol, Brovana, Asmanex, Spiriva, Singulair, Albuterol nebs as needed 2. HTN - Continue Cozaar 3. NIDDM - HbA1c: 8.1 - Metformin held - Hyperglycemia secondary to steroids - Continue Novolog sliding scale - increase Levemir to 10mg BID FEN Fluids: PO intake adequate Electrolytes: replete as indicated Nutrition: diabetic, low sodium DVT prophylaxis: lovenox Physical therapy Pre post in am Dispo: continues to require inpatient care. Full code. Visit type - Emergency Visit Emergency Visit: Yes ED Registration Date: 02/14/18 Care time: The patient presented to the Emergency Department on the above date and was hospitalized for further evaluation of their emergent condition. - New Patient This patient is new to me today: No - Critical Care Critical Care patient: No
[2018-02-18 18:32] VITALS: PULSE 64
[2018-02-18] MEDS: MONTELUKAST NA 10 MG TABLET PO SCH (21:55)
[2018-02-19 05:27] VITALS: TEMP 98.4
[2018-02-19] MEDS: INSULIN (LEVEMIR) 100 UNITS/ML UNITS SQ SCH (06:18)
[2018-02-19] MEDS: INSULIN SLIDING SCALE (NOVOLOG) 1 VIAL SQ SCH ×2 (06:18→11:58)
[2018-02-19] MEDS ORDERED: INSULIN (NOVOLOG) ASPART 100 UNITS/ML 10ML VIAL ONE ×2 (06:20→11:53)
[2018-02-19] MEDS ORDERED: INSULIN (LEVEMIR) 100 UNITS/ML UNITS SQ ONE (06:20)
[2018-02-19] MEDS: ARFORMOTEROL TARTRATE 15 MCG/2 ML VIAL NEB SCH (08:00)
--- NOTE | 2018-02-19 09:46 | DS ---
Physical Exam: SUBJECTIVE: Patient seen and examined OBJECTIVE: Vital Signs Period Temp Pulse Resp BP Sys/Stallings Pulse Ox Last 24 Hr 97.5 F-98.4 F 64-73 18-20 138-159/67-81 95-97 PHYSICAL EXAM GENERAL: The patient is awake, alert, and fully oriented, in no acute distress. HEAD: Normal with no signs of trauma. EYES: PERRL, extraocular movements intact, sclera anicteric, conjunctiva clear. ENT: Ears normal, nares patent, oropharynx clear without exudates, moist mucous membranes. NECK: Trachea midline, full range of motion, supple. LUNGS: Breath sounds equal, clear to auscultation bilaterally, no wheezes, no crackles, no accessory muscle use. HEART: Regular rate and rhythm, S1, S2 without murmur, rub or gallop. ABDOMEN: Soft, nontender, nondistended, normoactive bowel sounds, no guarding, no rebound, no hepatosplenomegaly, no masses. EXTREMITIES: 2+ pulses, warm, well-perfused, no edema. NEUROLOGICAL: Cranial nerves II through XII grossly intact. Normal speech, gait not observed. PSYCH: Normal mood, normal affect. SKIN: Warm, dry, normal turgor, no rashes or lesions noted. LABS Laboratory Results - last 24 hr 02/18/18 02/18/18 02/18/18 12:10 16:50 21:52 POC Glucometer 314 248 295 02/19/18 05:35 POC Glucometer 228 HOSPITAL COURSE: Date of Admission:02/14/18 Date of Discharge: 02/19/18 Minutes to complete discharge: 35 Discharge Summary Reason For Visit: EXACERBATION OF ASTHMA Current Active Problems Asthma exacerbation (Acute) Dyspnea (Acute) Condition: Stable - Instructions Referrals: Yeni Duque MD [Primary Care Provider] - - Home Medications Comprehensive Discharge Medication List: Ambulatory Orders Arformoterol Tartrate [Brovana] 15 mcg IH DAILY 01/02/15 Losartan Potassium 50 mg PO DAILY 01/02/15 metFORMIN HCL [Metformin HCl] 500 mg PO TID 01/02/15 Albuterol 0.083% Nebulizer [place] [Ventolin 0.083% Nebulizer Soln -] 1 neb NEB Q4H PRN #1 box 10/12/15 Montelukast Na [Singulair -] 10 mg PO HS #30 tablet 05/01/16 Prednisone 40 mg PO DAILY #40 tab.ds.pk 05/18/17 Tiotropium [place] [Spiriva] 1 inh IH DAILY #7 cap.w.dev 05/20/17 This patient is new to me today: No Emergency Visit: Yes ED Registration Date: 02/14/18 Care time: The patient presented to the Emergency Department on the above date and was hospitalized for further evaluation of their emergent condition. Critical Care patient: No - Discharge Referral Referred to [facility] No
[2018-02-19] MEDS: TIOTROPIUM BROMIDE 2.5 MCG (SPIRIVA) RESPIMAT INHALER IH SCH (09:52)
[2018-02-19] MEDS: MOMETASONE FUROATE 220 MCG/IH INHALER IH SCH (09:52)
[2018-02-19] MEDS: methylPREDNISolone NA SUCC 40 MG/1 ML VIAL IVPUSH SCH (09:53)
[2018-02-19] MEDS: LOSARTAN POTASSIUM 50 MG TABLET (FP) PO SCH (09:53)
[2018-02-19] MEDS: ENOXAPARIN NA (PORCINE) 40 MG/0.4 ML DISP.SYRIN SQ SCH (09:53)
[2018-02-19] MEDS ORDERED: methylPREDNISolone NA SUCC 125 MG/2 ML VIAL IVPUSH ONE (10:24)
[2018-02-19 10:34] VITALS: BP 160/77
[2018-02-19] MEDS ORDERED: predniSONE 20 MG TABLET (UD) PO ONE (12:15)
== END 2018-02-19 13:35 | disposition home or self-care (01) | DRG 192 ==
LOC: JER 06:47 → JERBED 11:29 → J7W 15:23
PROVIDERS: ADMIT Internal Medicine; ATTEND Nurse Practitioner Acute Care
DX: J44.1 Chronic obstructive pulmonary disease with (acute) exacerbation (principal); I10 Essential (primary) hypertension; E11.65 Type 2 diabetes mellitus with hyperglycemia; B37.9 Candidiasis, unspecified; E66.9 Obesity, unspecified; Z68.37 Body mass index [BMI] 37.0-37.9, adult; M19.90 Unspecified osteoarthritis, unspecified site; R06.00 Dyspnea, unspecified; Z79.51 Long term (current) use of inhaled steroids; Z87.891 Personal history of nicotine dependence
CPT/HCPCS: 36415; 71046-TC-FY; 80048; 80053; 82962; 83036; 83735; 84100; 85025; 93005; 93010; 94640; 94761; 97116-GP; 99284-25; J7030

== ENCOUNTER 2018-04-28 09:56 | Observation (INO) | payer OTHER ==
--- NOTE | 2018-04-28 10:54 | PDOC ---
History of Present Illness - General Chief Complaint: Asthma Stated Complaint: Asthma Time Seen by Provider: 04/28/18 10:37 History Source: Patient Exam Limitations: No Limitations - History of Present Illness Initial Comments: 04/28/18 10:52 77y F asthma, HTN DM Asthma COPD, presents with complaint of sob/morales. The patient has been feeling sob/morales for the past month, has been following up with pmd and started steroids on her own about 1 week ago. Pt endorses some improvement temporarly with albuterol, but her morales/sob returns. The pt denies any fever/chills, cp, hemoptysis, leg swelling, calf pain, back pain, headache, dizziness, diarrhea, melena, bpr. pt denies orthopnea, but sleeps on a inclined bed at baseline. PMD Dr. Marquez Past History - Past Medical History Allergies/Adverse Reactions: Allergies Allergy/AdvReac Type Severity Reaction Status Date / Time Iodinated Contrast- Oral and Allergy Unknown Verified 04/28/18 10:04 IV Dye [IV Dye, Iodine Containing Contrast ] tetracycline [Tetracycline] Allergy Unknown Verified 04/28/18 10:04 shellfish derived Allergy Verified 04/28/18 10:04 Home Medications: Ambulatory Orders Arformoterol Tartrate [Brovana] 15 mcg IH DAILY 01/02/15 Losartan Potassium 50 mg PO DAILY 01/02/15 metFORMIN HCL [Metformin HCl] 500 mg PO PRN 01/02/15 Albuterol 0.083% Nebulizer Delmi [Ventolin 0.083% Nebulizer Soln -] 1 neb NEB Q4H PRN #1 box 10/12/15 Montelukast Na [Singulair -] 10 mg PO HS #30 tablet 05/01/16 Insulin Aspart [Novolog Flexpen] 0 unit SQ ASDIR 04/28/18 Prednisone 30 mg PO DAILY 04/28/18 Anemia: Yes Asthma: Yes Cancer: No Cardiac Disorders: Yes CVA: No COPD: Yes CHF: Yes Dementia: No Diabetes: Yes GI Disorders: No Disorders: No HTN: Yes Hypercholesterolemia: No Liver Disease: No Seizures: No Thyroid Disease: No - Surgical History Abdominal Surgery: Yes Appendectomy: No Cardiac Surgery: No Cholecystectomy: No Lung Surgery: No Neurologic Surgery: No Orthopedic Surgery: No - Immunization History Immunization Up to Date: Yes - Suicide/Smoking/Psychosocial Hx Smoking Status: No Smoking History: Never smoked Have you smoked in the past 12 months: No Number of Cigarettes Smoked Daily: 0 If you are a former smoker, when did you quit?: 1989 Hx Alcohol Use: No Drug/Substance Use Hx: No Substance Use Type: Alcohol Hx Substance Use Treatment: No Respiratory Specific PMHX - Complaint Specific PMHX Bronchitis: Yes Pneumonia: Yes Review of Systems - Review of Systems Able to Perform ROS?: Yes Comments:: 04/28/18 11:46 Constitutional - no reported Fever, Chills, HEENT: no reported vision changes, sore throat Respiratory: +cough, MORALES no reported sob, hemoptysis Cardiac: no reported chest pain, palpitations, light headedness, leg swelling Abd/GI: no reported abd pain, nausea, vomiting, blood per rectum, melena, diarrhea : no reported dysuria, frequency, discharge Musculskelatal - no reported back pain, joint swelling skin - no reported bruising, erythema, rash neurological: no reported headache, numbness, focal weakness, tingling, ataxia, hematologic: no reported easy bruising, easy bleeding *Physical Exam - Vital Signs Last Vital Signs Temp Pulse Resp BP Pulse Ox 97.6 F 81 20 157/63 96 04/28/18 10:01 04/28/18 10:01 04/28/18 10:01 04/28/18 10:01 04/28/18 10:01 - Physical Exam Comments: 04/28/18 11:47 GENERAL: The patient is awake, alert, and fully oriented, Nontoxic - in no acute distress. HEAD: Normocephalic, atraumatic. EYES: extraocular movements intact, sclera anicteric, conjunctiva clear. ENT: Normal voice, Moist mucous membranes. NECK: Normal range of motion, supple LUNGS: scant end epxiratory wheezing, speaking complete sentences,no respiratory distress HEART: Regular rate and rhythm, normal S1 and S2 without murmur, rub or gallop. ABDOMEN: Soft, nontender, No CVA tenderness EXTREMITIES: Normal range of motion, no edema. NEUROLOGICAL: No facial assymetry, Normal speech, PSYCH: Normal mood, normal affect. SKIN: Warm, Dry, normal turgor, Moderate Sedation - Procedure Monitoring Vital Signs: Procedure Monitoring Vital Signs Temperature 97.6 F 04/28/18 10:01 Pulse Rate 81 04/28/18 10:01 Respiratory Rate 20 04/28/18 10:01 Blood Pressure 157/63 04/28/18 10:01 O2 Sat by Pulse Oximetry (%) 96 04/28/18 10:01 Heart Score/ECG Review - ECG Impressions Comment:: 04/28/18 11:48 Twelve-lead EKG was performed and reviewed by me. There is normal sinus rhythm with a normal rate. Rate of 75 Right bundle-branch block qtc [address] changes suggestive of acute ischemia ED Treatment Course - LABORATORY CBC & Chemistry Diagram: 04/28/18 11:10 04/28/18 12:21 Medical Decision Making - Medical Decision Making 04/28/18 17:[address] Perea, recommended steroids, nebs reassessment if the patient is personally short of breath consider possible observation Patient feeling persistently short of breath after treatments and ambulation. Will give the patient's repeat nebulizers, steroids 04/28/18 17:16 Case was discussed with Dr. Christie agree with [facility] med surg for further mangaement Case discussed in detail with admitting physician including history, physical exam and ancillary studies. Admitting physician has assumed care for the patient, will follow all pending diagnostics and will complete the evaluation and treatment. *DC/Admit/Observation/Transfer Diagnosis at time of Disposition: Asthma exacerbation Qualifiers: Asthma severity: mild Asthma persistence: unspecified Qualified Code(s): J45.901 - Unspecified asthma with (acute) exacerbation - Discharge Dispostion Condition at time of disposition: Stable Decision to Admit order: Yes - Referrals Referrals: Yeni Duque MD [Primary Care Provider] - - Patient Instructions - Post Discharge Activity
[2018-04-28 11:14] LABS: VENOUS PH 7.44 (7.32-7.42); VENOUS PO2 81.7 mmHg (28-48)
[2018-04-28 11:16] LABS: BASO % 0.4 % (0-2.0); EOS % 0.3 % (0-4.5); HEMATOCRIT 40.5 % (32.4-45.2); HEMOGLOBIN 12.5 GM/dL (10.7-15.3); MCH 26.3 pg (25.7-33.7); MCHC 30.9 g/dl (32.0-36.0); MEAN CELL VOLUME 85.1 fl (80-96); MEAN PLT VOLUME 10.3 fl (7.5-11.1); MONO % 2.9 % (3.8-10.2); NEUT % 87.4 % (42.8-82.8); PLATELET COUNT 212 K/MM3 (134-434); RBC 4.75 M/mm3 (3.60-5.2); RDW 16.7 % (11.6-15.6); WHITE BLOOD COUNT 11.7 K/mm3 (4.0-10.0)
[2018-04-28] MEDS ORDERED: methylPREDNISolone NA SUCC 125 MG/2 ML VIAL IVPUSH ONE (11:39)
[2018-04-28] MEDS ORDERED: ALBUTEROL SO4 2.5/IPRATROPIUM 0.5 INH SOL 3 ML VIAL.NEB. NEB ONE ×3 (11:39→16:30)
[2018-04-28] MEDS ORDERED: methylPREDNISolone NA SUCC 125 MG/2 ML VIAL ONE (11:47)
--- NOTE | 2018-04-28 12:16 | EKG ---
Test Reason : Blood Pressure : / mmHG Vent. Rate : 075 BPM Atrial Rate : 075 BPM P-R Int : 134 ms QRS Dur : 152 ms QT Int : 448 ms P-R-T Axes : 038 036 049 degrees QTc Int : 500 ms NORMAL SINUS RHYTHM RIGHT BUNDLE BRANCH BLOCK ABNORMAL ECG WHEN COMPARED WITH ECG OF 14-FEB-2018 07:39, NO SIGNIFICANT CHANGE WAS FOUND Confirmed by CALIRE CORBETT MD ([id number]) on 04/28/2018 12:15:45 PM Referred By: Confirmed By:CLAIRE CORBETT MD
[2018-04-28 12:35] LABS: ANISOCYTOSIS 2+; MACROCYTOSIS 0; PLATELET ESTIMATE NORMAL
[2018-04-28 13:19] LABS: ALBUMIN 3.8 g/dl (3.4-5.0); ALK PHOS 61 U/L (45-117); ANION GAP 7 MMOL/L (8-16); BILIRUBIN,TOTAL 0.4 mg/dL (0.2-1); BLOOD UREA NITROGEN 22 mg/dL (7-18); CHLORIDE 100 mmol/L (98-107); CO2 29 mmol/L (21-32); CREATININE 0.7 mg/dL (0.55-1.3); GLUCOSE,RANDOM 231 mg/dL (74-106); POTASSIUM 4.6 mmol/L (3.5-5.1); SGOT/AST 36 U/L (15-37); SGPT/ALT 45 U/L (13-61); SODIUM 136 mmol/L (136-145); TOT PROT 6.7 g/dl (6.4-8.2)
[2018-04-28] MEDS ORDERED: LOSARTAN POTASSIUM 50 MG TABLET (FP) PO ONE (17:01)
[2018-04-28] MEDS ORDERED: ALBUTEROL SO4 0.083% IH SOL 2.5 MG/3 ML VIAL.NEB. NEB PRN (18:05)
[2018-04-28] MEDS ORDERED: FUROSEMIDE 40 MG/4 ML INJECTABLE VIAL IVPUSH ONE (18:10)
[2018-04-28] MEDS ORDERED: ACETAMINOPHEN 325 MG TABLET (FP) PO ONE (18:14)
[2018-04-28] MEDS ORDERED: ACETAMINOPHEN 325 MG TABLET (FP) ONE (18:15)
--- NOTE | 2018-04-28 18:45 | HP ---
Admitting History and Physical - Primary Care Physician PCP: Yeni Duque - Admission Chief Complaint: SOB History of Present Illness: 77 y/o lady with h/o HTN, Dm , COPD , who presented with worsening SOB over past 2 weeks. she usually walks 10 miles a day but in past 2-3 weeks she will get very SOB with 20 feet of walking. she denies fever, cough, sick ocntact, CP , or palpitations. she started a course of predniosne 30 mg a week ago but this did not help her. ( self treats her self ). she has no h/o CHF, and sees card regularly for valve problems. she had stress test earlier this year, was told it was NL. her last echo in our system 05/16 with mild MR, TR, AR, and diastolic dysfunciton . in Er , she was not wheezing, she was given solumedrol and nebs . History Source: Patient Limitations to Obtaining History: No Limitations - Past Medical History Cardiovascular: Yes: HTN Pulmonary: Yes: Asthma, COPD Psych: Yes: Anxiety Endocrine: Yes: Diabetes Mellitus (diet controlled , but she takes SSI and metformin when on steroids) - Past Surgical History Past Surgical History: Yes: Breast Biopsy, Tubal Ligation - Smoking History Smoking history: Former smoker Have you smoked in the past 12 months: No Aproximately how many cigarettes per day: 0 If you are a former smoker, when did you quit?: 1989 - Alcohol/Substance Use Hx Alcohol Use: Yes (1-6 beers socialy ) History of Substance Use: reports: None - Social History Usual Living Arrangement: Yes: Alone ADL: Independent History of Recent Travel: No Home Medications - Allergies Allergies/Adverse Reactions: Allergies Allergy/AdvReac Type Severity Reaction Status Date / Time Iodinated Contrast- Oral and Allergy Unknown Verified 04/28/18 10:04 IV Dye [IV Dye, Iodine Containing Contrast ] tetracycline [Tetracycline] Allergy Unknown Verified 04/28/18 10:04 shellfish derived Allergy Verified 04/28/18 10:04 - Home Medications Home Medications: Ambulatory Orders Arformoterol Tartrate [Brovana] 15 mcg IH BID 01/02/15 Losartan Potassium 50 mg PO DAILY 01/02/15 metFORMIN HCL [Metformin HCl] 500 mg PO DAILY 01/02/15 Albuterol 0.083% Nebulizer Delmi [Ventolin 0.083% Nebulizer Soln -] 1 neb NEB Q4H PRN #1 box 10/12/15 Montelukast Na [Singulair -] 10 mg PO HS #30 tablet 05/01/16 Albuterol Sulfate Inhaler - [Ventolin Hfa Inhaler -] 1 - 2 inh PO QID PRN Insulin Aspart [Novolog Flexpen] 0 unit SQ ASDIR 04/28/18 Mometasone Furoate [Asmanex] 0.135 gm IH HS 04/28/18 Prednisone 30 mg PO DAILY 04/28/18 Umeclidinium [place] [Incruse Ellipta] 1 puff IH DAILY 04/28/18 Family Disease History - Family Disease History Family Disease History: CA: Father (lung cancer ), Brother (lung cancer ), Son ( lymphoma ) Review of Systems - Review of Systems Constitutional: denies: Chills, Diaphoresis, Fever, Lethargy, Loss of Appetite Eyes: denies: Blind Spots, Blurred Vision HENT: denies: Difficult Swallowing, Ear Discharge, Mouth Swelling Neck: reports: Lumps (1 week ago saw her ENT for lump behind her L ear. she was told it was OK). denies: Decreased ROM, Pain on Movement, Tenderness Cardiovascular: reports: Shortness of Breath. denies: Chest Pain, Edema, Palpitations Respiratory: reports: Exercise Intolerance, SOB. denies: Cough, Hemoptysis, Orthopnea, Wheezing Gastrointestinal: denies: Abdominal Pain, Bloating, Constipation, Diarrhea Genitourinary: denies: Dysuria, Flank Pain, Frequency, Incontinence Musculoskeletal: denies: Back Pain, Extremity Pain Neurological: denies: Change in LOC, Change in Speech, Confusion, Dizziness Endocrine: denies: Excessive Sweating, Flushing, Increased Hunger Psychiatric: denies: Altered Sleep Pattern, Anxiety, Depression Physical Examination Vital Signs: Vital Signs Temperature 98 F 04/28/18 16:50 Pulse Rate 80 04/28/18 16:50 Respiratory Rate 20 04/28/18 16:50 Blood Pressure 192/65 H 04/28/18 16:50 O2 Sat by Pulse Oximetry (%) 98 04/28/18 16:50 Constitutional: Yes: Well Nourished, No Distress, Calm. No: Anxious Eyes: Yes: Conjunctiva Clear, EOM Intact, PERRL HENT: Yes: Atraumatic, Normocephalic, Other (1 cm lymph node on each processor solid propellant behild the mandible below the ear, non tender). No: Pharyngeal Erythema Neck: No: Lymphadenopathy, Tenderness, Thyromegaly Cardiovascular: Yes: Regular Rate and Rhythm, JVD, Murmur (2/6 Sm at LUSB and LLSB), S1, S2. No: Tachycardia, Bruit Respiratory: Yes: Regular, CTA Bilaterally. No: Cough Gastrointestinal: Yes: Normal Bowel Sounds, Soft. No: Distention, Tenderness Extremities: No: Cold, Cool, Cyanosis, Erythema, Pallor Edema: Yes Edema: LLE: 1+, RLE: 1+ Peripheral Pulses: Left Radial: 2+, Right Radial: 2+, Left Doralis Pedis: 2+, Right Dorsalis Pedis: 2+ Neurological: Yes: Alert, Oriented (no facial droop, EOMI, round equal reactiv epupils, tongue and uvula at midline. nl facial sensation . strength 5/5 in upper and lower extremities proximally and distally. sensation to light touch nL. reflexes 1+ knee jerk and 2+ biceps b/l NL gait) Labs: CBC, BMP 04/28/18 11:10 04/28/18 12:21 Imaging - Results X-ray: Image Reviewed (no infiltrate) EKG: Image Reviewed (R BBB. sinus rhythm) Assessment/Plan 7 y/o lady with h/o HTN, Dm , COPD , who presented with worsening SOB over past 2 weeks. 1- Progressive SOB. lung exam shows good air entry and no wheezing. however she has JVD and trace LE edema. Possibly she has some degree of diastolic heart failure. last echo 05/16 showed impaired relaxation . - try Nebs and inhalers - give prednisone 40 daily - try a dose of lasix 20 mg IV and watch response . - obtain echo - I&O and weight - order flu swab. - no evidence of PNA . 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 2- HTN urgency: took her 50 mg of losartan in am . received another 50 mg in ER. likely elevated due to steroids - give 100 mg of losartan in am adn monitor BP 3- Dm : she only takes metformin and SSi when she is on steorids. last A1c 8.1 in - cont SSI while here - she needs to continue metformin regularly after dc 4- DVT px. heparin observe. Dr. Oliva to assume care tomorrow Visit type - Emergency Visit Emergency Visit: Yes Care time: The patient presented to the Emergency Department on the above date and was hospitalized for further evaluation of their emergent condition. - New Patient This patient is new to me today: Yes Date on this admission: 04/28/18 - Critical Care Critical Care patient: No
[2018-04-28] MEDS ORDERED: FUROSEMIDE 40 MG/4 ML INJECTABLE VIAL ONE (18:46)
[2018-04-28 20:58] VITALS: BMI 37.1
[2018-04-28] MEDS: HEPARIN NA (PORCINE) 5,000 UNITS/ML 1ML VIAL SQ SCH (22:11)
[2018-04-28] MEDS: MONTELUKAST NA 10 MG TABLET PO SCH (22:12)
[2018-04-28] MEDS: ARFORMOTEROL TARTRATE 15 MCG/2 ML VIAL NEB SCH (22:12)
[2018-04-28] MEDS: INSULIN SLIDING SCALE (NOVOLOG) 1 VIAL SQ SCH (22:16)
[2018-04-28] MEDS: ALBUTEROL SO4 0.083% IH SOL 2.5 MG/3 ML VIAL.NEB. NEB SCH (22:23)
[2018-04-29] MEDS: HEPARIN NA (PORCINE) 5,000 UNITS/ML 1ML VIAL SQ SCH ×3 (05:24→21:16)
[2018-04-29] MEDS: INSULIN SLIDING SCALE (NOVOLOG) 1 VIAL SQ SCH ×4 (06:16→21:17)
[2018-04-29] MEDS: ALBUTEROL SO4 0.083% IH SOL 2.5 MG/3 ML VIAL.NEB. NEB SCH (08:26)
[2018-04-29 09:45] LABS: ANION GAP 8 MMOL/L (8-16); BLOOD UREA NITROGEN 23 mg/dL (7-18); CALCIUM 8.7 mg/dL (8.5-10.1); CHLORIDE 102 mmol/L (98-107); CO2 27 mmol/L (21-32); CREATININE 0.6 mg/dL (0.55-1.3); GLUCOSE,RANDOM 114 mg/dL (74-106); PHOSPHOROUS 3.4 mg/dL (2.5-4.9); POTASSIUM 3.7 mmol/L (3.5-5.1); SODIUM 138 mmol/L (136-145)
[2018-04-29] MEDS: ARFORMOTEROL TARTRATE 15 MCG/2 ML VIAL NEB SCH ×2 (09:58→21:00)
[2018-04-29] MEDS ORDERED: MOMETASONE FUROATE 220 MCG/IH INHALER IH SCH ×2 (10:00→22:00)
[2018-04-29] MEDS: LOSARTAN POTASSIUM 50 MG TABLET (FP) PO SCH (11:12)
[2018-04-29] MEDS: predniSONE 20 MG TABLET (UD) PO SCH (11:12)
--- NOTE | 2018-04-29 11:43 | PN ---
Progress Note, Physician Chief Complaint: Asthma exacerbation History of Present Illness: NAD self ambulatory breathing better - Current Medication List Current Medications: Active Medications Albuterol Sulfate (Ventolin 0.083% Nebulizer Soln -) 1 amp NEB Q6H PRN PRN Reason: SHORT OF BREATH/WHEEZING Albuterol Sulfate (Ventolin 0.083% Nebulizer Soln -) 1 amp NEB RQID [facility] Last Admin: 04/29/18 08:26 Dose: 1 amp Arformoterol Tartrate (Brovana (Restricted To Pulmonology/Resp) -) 1 amp NEB BID [facility] Last Admin: 04/29/18 09:58 Dose: 1 amp Heparin Sodium (Porcine) (Heparin -) 5,000 unit SQ TID [facility] Last Admin: 04/29/18 05:24 Dose: 5,000 unit Insulin Aspart (Novolog Vial Sliding Scale -) 1 vial SQ ACHS [facility]; Protocol Last Admin: 04/29/18 11:23 Dose: 2 units Losartan Potassium (Cozaar -) 100 mg PO DAILY [facility] Last Admin: 04/29/18 11:12 Dose: 100 mg Mometasone Furoate (Asmanex 220mcg -) 1 puff IH DAILY [facility] Montelukast Sodium (Singulair -) 10 mg PO HS [facility] Last Admin: 04/28/18 22:12 Dose: 10 mg Prednisone (Deltasone -) 40 mg PO DAILY [facility] Last Admin: 04/29/18 11:12 Dose: 40 mg - Objective Vital Signs: Vital Signs Temperature 99.1 F 04/29/18 10:15 Pulse Rate 73 04/29/18 10:15 Respiratory Rate 18 04/29/18 10:15 Blood Pressure 145/69 04/29/18 10:15 O2 Sat by Pulse Oximetry (%) 97 04/29/18 06:00 Constitutional: Yes: Well Nourished, No Distress, Calm Cardiovascular: Yes: Regular Rate and Rhythm Respiratory: Yes: Regular Gastrointestinal: Yes: Normal Bowel Sounds, Soft, Abdomen, Obese Genitourinary: Yes: WNL Musculoskeletal: Yes: WNL Extremities: Yes: WNL Edema: No Peripheral Pulses WNL: Yes Neurological: Yes: Alert, Oriented Psychiatric: Yes: Alert, Oriented Labs: CBC, BMP 04/28/18 11:10 04/29/18 08:27 Problem List - Problems (1) Asthma exacerbation Assessment/Plan: PULMONARY CONSULT -PREDNISONE 40 MG PO DAILY -BRONCHODILATORS -CXR UNREMARKABLE -D/C IN AM Code(s): J45.901 - UNSPECIFIED ASTHMA WITH (ACUTE) EXACERBATION Qualifiers: Asthma severity: mild Asthma persistence: unspecified Qualified Code(s): J45.901 - Unspecified asthma with (acute) exacerbation (2) Diabetes Assessment/Plan: -BGM AC HS -DIABETIC LOW SODIUM DIET -A1C 9.0 -F/U WITH ENDOCRINOLOGY OUTPATIENT Code(s): E11.9 - TYPE 2 DIABETES MELLITUS WITHOUT COMPLICATIONS Assessment/Plan SEE PROBLEM LIST
--- NOTE | 2018-04-29 12:12 | CON.PULM ---
Consult Consult Specialty:: PULMONARY Referred by:: KARIN Reason for Consultation:: COPD - History of Present Illness Chief Complaint: SOB/COUGH History of Present Illness: 77y F asthma, HTN DM Asthma COPD, presents with complaint of sob/morales. The patient has been feeling sob/morales for the past month, has been following up with pmd and started steroids on her own about 1 week ago. Pt endorses some improvement temporarly with albuterol, but her morales/sob returns. The pt denies any fever/chills, cp, hemoptysis, leg swelling, calf pain, back pain, headache, dizziness, diarrhea, melena, bpr. pt denies orthopnea, but sleeps on a inclined bed at baseline. 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 No: AFIB Pulmonary: Yes: Asthma, COPD Gastrointestinal: No: Ascites Heme/Onc: Yes: Anemia Psych: Yes: Anxiety Endocrine: Yes: Diabetes Mellitus (diet controlled , but she takes SSI and metformin when on steroids) - Past Surgical History Past Surgical History: Yes: Breast Biopsy, Tubal Ligation - Alcohol/Substance Use Hx Alcohol Use: Yes (1-6 beers socialy ) History of Substance Use: reports: None - Smoking History Smoking history: Former smoker Have you smoked in the past 12 months: No Aproximately how many cigarettes per day: 0 If you are a former smoker, when did you quit?: 1989 - Social History ADL: Independent Place of : [facility] History of Recent Travel: No Home Medications - Allergies Allergies/Adverse Reactions: Allergies Allergy/AdvReac Type Severity Reaction Status Date / Time Iodinated Contrast- Oral and Allergy Unknown Verified 04/28/18 10:04 IV Dye [IV Dye, Iodine Containing Contrast ] tetracycline [Tetracycline] Allergy Unknown Verified 04/28/18 10:04 shellfish derived Allergy Verified 04/28/18 10:04 - Home Medications Home Medications: Ambulatory Orders Arformoterol Tartrate [Brovana] 15 mcg IH BID 01/02/15 Losartan Potassium 50 mg PO DAILY 01/02/15 metFORMIN HCL [Metformin HCl] 500 mg PO DAILY 01/02/15 Albuterol 0.083% Nebulizer Delmi [Ventolin 0.083% Nebulizer Soln -] 1 neb NEB Q4H PRN #1 box 10/12/15 Montelukast Na [Singulair -] 10 mg PO HS #30 tablet 05/01/16 Albuterol Sulfate Inhaler - [Ventolin Hfa Inhaler -] 1 - 2 inh PO QID PRN Insulin Aspart [Novolog Flexpen] 0 unit SQ ASDIR 04/28/18 Mometasone Furoate [Asmanex] 0.135 gm IH HS 04/28/18 Prednisone 30 mg PO DAILY 04/28/18 Umeclidinium [place] [Incruse Ellipta] 1 puff IH DAILY 04/28/18 Family Disease History - Family Disease History Family Disease History: CA: Father (lung cancer ), Brother (lung cancer ), Son ( lymphoma ) Review of Systems - Review of Systems Constitutional: denies: Fever Eyes: denies: Blurred Vision HENT: denies: Difficult Swallowing Neck: denies: Decreased ROM Cardiovascular: denies: Chest Pain Respiratory: reports: Cough, SOB on Exertion Gastrointestinal: denies: Abdominal Pain Genitourinary: denies: Burning Physical Exam Vital Sings: Vital Signs Temperature 99.1 F 04/29/18 10:15 Pulse Rate 73 04/29/18 10:15 Respiratory Rate 18 04/29/18 10:15 Blood Pressure 145/69 04/29/18 10:15 O2 Sat by Pulse Oximetry (%) 97 04/29/18 06:00 Constitutional: Yes: Calm Eyes: Yes: EOM Intact HENT: Yes: Normocephalic Neck: Yes: Trachea Midline Cardiovascular: Yes: Regular Rate and Rhythm Respiratory: Yes: CTA Bilaterally Gastrointestinal: Yes: Normal Bowel Sounds Edema: No Labs: CBC, BMP 04/28/18 11:10 04/29/18 08:27 REST REVIEWED Imaging - Results Chest X-ray: Report Reviewed, Image Reviewed Problem List - Problems (1) Asthma exacerbation Code(s): J45.901 - UNSPECIFIED ASTHMA WITH (ACUTE) EXACERBATION Qualifiers: Asthma severity: mild Asthma persistence: unspecified Qualified Code(s): J45.901 - Unspecified asthma with (acute) exacerbation (2) Asthma exacerbation in COPD Code(s): J44.1 - CHRONIC OBSTRUCTIVE PULMONARY DISEASE W (ACUTE) EXACERBATION; J45.901 - UNSPECIFIED ASTHMA WITH (ACUTE) EXACERBATION (3) Diastolic CHF Code(s): I50.30 - UNSPECIFIED DIASTOLIC (CONGESTIVE) HEART FAILURE (4) Hypertension Code(s): I10 - ESSENTIAL (PRIMARY) HYPERTENSION Assessment/Plan MILD A/E COPD LIKELY URI NO EVIDENCE TO SUGGEST CABP AGRE WITH SHORT COURDE STEROIDS THEE/LABA/LAMA/ICS FOLLOW UP OUTPATIENT NO OBJECTION TO D/C IN AM Geneva GONZALEZ MD
[2018-04-29] MEDS ORDERED: PT OWN MED DRAWER 7, Y5N ONE ×2 (20:29→21:44)
[2018-04-29] MEDS: MONTELUKAST NA 10 MG TABLET PO SCH (21:15)
[2018-04-29] MEDS ORDERED: diphenhydrAMINE HCL 25 MG CAPSULE (FP) PO ONE (21:45)
[2018-04-30] MEDS: HEPARIN NA (PORCINE) 5,000 UNITS/ML 1ML VIAL SQ SCH (06:31)
[2018-04-30] MEDS: INSULIN SLIDING SCALE (NOVOLOG) 1 VIAL SQ SCH ×2 (06:32→11:45)
[2018-04-30] MEDS: LOSARTAN POTASSIUM 50 MG TABLET (FP) PO SCH (09:56)
[2018-04-30] MEDS: predniSONE 20 MG TABLET (UD) PO SCH (09:56)
[2018-04-30] MEDS: ARFORMOTEROL TARTRATE 15 MCG/2 ML VIAL NEB SCH (10:15)
--- NOTE | 2018-04-30 11:45 | PN ---
Progress Note, Physician Chief Complaint: Asthma exacerbation History of Present Illness: NAD self ambulatory breathing better - Current Medication List Current Medications: Active Medications Albuterol Sulfate (Ventolin 0.083% Nebulizer Soln -) 1 amp NEB Q6H PRN PRN Reason: SHORT OF BREATH/WHEEZING Arformoterol Tartrate (Brovana (Restricted To Pulmonology/Resp) -) 1 amp NEB BID [facility] Last Admin: 04/29/18 21:00 Dose: 1 amp Heparin Sodium (Porcine) (Heparin -) 5,000 unit SQ TID [facility] Last Admin: 04/30/18 06:31 Dose: 5,000 unit Insulin Aspart (Novolog Vial Sliding Scale -) 1 vial SQ ACHS [facility]; Protocol Last Admin: 04/30/18 06:32 Dose: Not Given Losartan Potassium (Cozaar -) 100 mg PO DAILY [facility] Last Admin: 04/30/18 09:56 Dose: 100 mg Mometasone Furoate (Asmanex 220mcg -) 1 puff IH [facility] Last Admin: 04/29/18 21:17 Dose: 1 puff Montelukast Sodium (Singulair -) 10 mg PO HS [facility] Last Admin: 04/29/18 21:15 Dose: 10 mg Prednisone (Deltasone -) 40 mg PO DAILY [facility] Last Admin: 04/30/18 09:56 Dose: 40 mg - Objective Vital Signs: Vital Signs Temperature 98.2 F 04/30/18 08:00 Pulse Rate 71 04/30/18 08:00 Respiratory Rate 18 04/30/18 08:00 Blood Pressure 149/71 04/30/18 08:00 O2 Sat by Pulse Oximetry (%) 97 04/29/18 21:00 Constitutional: Yes: Well Nourished, No Distress, Calm Cardiovascular: Yes: Regular Rate and Rhythm Respiratory: Yes: Regular Gastrointestinal: Yes: Normal Bowel Sounds, Soft Genitourinary: Yes: WNL Musculoskeletal: Yes: WNL Extremities: Yes: WNL Edema: No Peripheral Pulses WNL: Yes Neurological: Yes: Alert, Oriented Psychiatric: Yes: Alert, Oriented Labs: CBC, BMP 04/28/18 11:10 04/29/18 08:27 Problem List - Problems (1) Asthma exacerbation Assessment/Plan: PULMONARY CONSULT -BRONCHODILATORS -CXR UNREMARKABLE -D/C WITH TAPERING DOSE OF PREDNISONE Code(s): J45.901 - UNSPECIFIED ASTHMA WITH (ACUTE) EXACERBATION Qualifiers: Asthma severity: mild Asthma persistence: unspecified Qualified Code(s): J45.901 - Unspecified asthma with (acute) exacerbation (2) Diabetes Assessment/Plan: -BGM AC HS -DIABETIC LOW SODIUM DIET -A1C 9.0 -F/U WITH ENDOCRINOLOGY OUTPATIENT Code(s): E11.9 - TYPE 2 DIABETES MELLITUS WITHOUT COMPLICATIONS Assessment/Plan SEE PROBLEM LIST
[2018-04-30 11:53] VITALS: BP 141/67; PULSE 68; TEMP 98
[2018-04-30] MEDS ORDERED: ARFORMOTEROL TARTRATE 15 MCG/2 ML VIAL NEB SCH (11:59)
== END 2018-04-30 13:00 | disposition home or self-care (01) ==
LOC: JER 09:56 → JERBED 17:18 → J5S 20:22
PROVIDERS: ADMIT Internal Medicine; ATTEND Family Medicine
PROC: 3E0333Z Introduction of Anti-inflammatory into Peripheral Vein, Percutaneous Approach (ICD-10-PCS; principal; 2018-04-28)
PROC: 3E033GC Introduction of Other Therapeutic Substance into Peripheral Vein, Percutaneous Approach (ICD-10-PCS; 2018-04-28)
PROC: 3E013VG Introduction of Insulin into Subcutaneous Tissue, Percutaneous Approach (ICD-10-PCS; 2018-04-28)
PROC: 3E013GC Introduction of Other Therapeutic Substance into Subcutaneous Tissue, Percutaneous Approach (ICD-10-PCS; 2018-04-28)
PROC: 3E0F7GC Introduction of Other Therapeutic Substance into Respiratory Tract, Via Natural or Artificial Opening (ICD-10-PCS; 2018-04-28)
DX: J45.901 Unspecified asthma with (acute) exacerbation (principal); J44.1 Chronic obstructive pulmonary disease with (acute) exacerbation; I11.0 Hypertensive heart disease with heart failure; I50.30 Unspecified diastolic (congestive) heart failure; E11.9 Type 2 diabetes mellitus without complications; Z79.4 Long term (current) use of insulin; Z79.84 Long term (current) use of oral hypoglycemic drugs; Z88.1 Allergy status to other antibiotic agents; Z91.041 Radiographic dye allergy status; Z91.013 Allergy to seafood
CPT/HCPCS: 36415; 71046-TC-FY; 80048; 80053; 82550; 82553; 82803; 82962; 83036; 83735; 84100; 84484; 85025; 87804; 93005; 93010; 93306-TC; 94640; 96372; 96374; 96375; 99283-25; G0378; J1644

== ENCOUNTER 2018-10-11 08:15 | Inpatient (IN) | payer OTHER ==
[2018-10-11] MEDS ORDERED: MAGNESIUM SULF 50% (8.12 MEQ/2 ML-1 GM VIAL) IVPB ONE (08:41)
--- NOTE | 2018-10-11 08:41 | PDOC ---
History of Present Illness - General Chief Complaint: Wheezing Stated Complaint: ASHTMA Time Seen by Provider: 10/11/18 08:22 - History of Present Illness Initial Comments: Kenyon Kay is a 78yo woman with a PMH of asthma, COPD, HTN, DM who presents with 3 days of increased shortness of breath, wheezing, cough, and increased sputum production. She started taking 40mg prednisone two days ago; her third dose was this morning. She also got a presription for azithromycin from her PMD which she started yesterday. She has been taking all of her scheduled breathing treatments as prescribed, but she has hesitant to use "too much" albuterol. She has been using her home albuterol at most 3x per day recently, though she generally tries to avoid it entirely. She states that she "woke up on life support" once after using albuterol frequently, and she has been afraid to use it since then. Ms Kay denies any nasal congestion, fever/chills, leg swelling, chest pain, or recent change in medications. Past History - Past Medical History Allergies/Adverse Reactions: Allergies Allergy/AdvReac Type Severity Reaction Status Date / Time Iodinated Contrast- Oral and Allergy Unknown Verified 04/28/18 10:04 IV Dye [IV Dye, Iodine Containing Contrast ] tetracycline [Tetracycline] Allergy Unknown Verified 04/28/18 10:04 shellfish derived Allergy Verified 04/28/18 10:04 Home Medications: Ambulatory Orders Arformoterol Tartrate [Brovana] 15 mcg IH BID 01/02/15 Losartan Potassium 50 mg PO DAILY 01/02/15 metFORMIN HCL [Metformin HCl] 500 mg PO DAILY 01/02/15 Albuterol 0.083% Nebulizer Delmi [Ventolin 0.083% Nebulizer Soln -] 1 neb NEB Q4H PRN #1 box 10/12/15 Montelukast Na [Singulair -] 10 mg PO HS #30 tablet 05/01/16 Albuterol Sulfate Inhaler - [Ventolin HFA Inhaler -] 1 - 2 inh PO QID PRN Insulin Aspart [Novolog Flexpen] 0 unit SQ ASDIR 04/28/18 Mometasone Furoate [Asmanex] 0.135 gm IH HS 04/28/18 Umeclidinium [place] [Incruse Ellipta] 1 puff IH DAILY 04/28/18 Prednisone 30 mg PO ASDIR #32 tablet 04/30/18 Anemia: Yes Asthma: Yes Cancer: No Cardiac Disorders: Yes CVA: No COPD: Yes CHF: Yes Dementia: No Diabetes: Yes GI Disorders: No Disorders: No HTN: Yes Hypercholesterolemia: No Liver Disease: No Seizures: No Thyroid Disease: No - Surgical History Abdominal Surgery: Yes Appendectomy: No Cardiac Surgery: No Cholecystectomy: No Lung Surgery: No Neurologic Surgery: No Orthopedic Surgery: No - Immunization History Immunization Up to Date: Yes - Suicide/Smoking/Psychosocial Hx Smoking Status: No Smoking History: Never smoked Have you smoked in the past 12 months: No Number of Cigarettes Smoked Daily: 0 If you are a former smoker, when did you quit?: 1989 Information on smoking cessation initiated: No Hx Alcohol Use: No Drug/Substance Use Hx: No Substance Use Type: Alcohol Hx Substance Use Treatment: No Review of Systems - Review of Systems Comments:: General: No fevers, no chills, no weight or appetite change, no malaise HEENT: No changes in vision, no changes in hearing, no congestion, no sore throat CV: No chest pain, no palpitations, no LE edema Pulm: See HPI GI: No nausea or vomiting, no change in bowel habits, no melena : No frequency, no urgency, no dysuria Musc: No back pain, no joint swelling, no recent injury Skin: No rash, no lesions, no erythema Endo: No excessive thirst, no heat/cold intolerance Heme: No unusual bruising or bleeding, no swollen glands Neuro: No syncope, no numbness/tingling, no focal weakness Vasc: No claudication Psych: No recent change in mood, no SI or HI *Physical Exam - Vital Signs Last Vital Signs Temp Pulse Resp BP Pulse Ox 98.6 F 89 16 173/62 H 99 10/11/18 08:17 10/11/18 08:17 10/11/18 08:17 10/11/18 08:17 10/11/18 08:17 - Physical Exam Comments: General: Comfortable, no acute distress HEENT: PERRL, EOMI, MMM, voice normal, normal neck ROM, no LAD Cards: RRR, no murmur appreciated Pulm: Labored breathing on room air. Diffuse expiratory wheezing. Abd: Soft, nontender, nondistended Ext: Atraumatic. No LE edema. ROM intact Vasc: Extremities WWP Skin: Normal color, no rashes or lesions Neuro: A&Ox3, CN grossly intact, normal speech, motor/sensory grossly intact and symmetric Psych: Mood appropriate to situation ED Treatment Course - LABORATORY CBC & Chemistry Diagram: 10/11/18 09:12 10/11/18 09:12 Medical Decision Making - Medical Decision Making 10/11/18 08:40 Kenyon Kay is a 78yo woman with a PMH of asthma, COPD, HTN, DM who presents with 3 days of increased shortness of breath, wheezing, cough, and increased sputum production consistent with asthma or COPD exacerbation. - Asthma or COPD exacerbation - Already taking steroids, antibiotics - Likely undertreating with home albuterol given reluctance to use. Additional duonebs ordered, IV mag - CBC, CMP, CXR, trop, EKG in anticipation of possible admission 10/11/18 10:17 - Labs reviewed. No concerning abnormalities on CBC. Chemistry hemolized. Potassium elevated, likely false elevation due to hemolysis. Will recheck - CXR to be completed. Will admit for continued wheezing after xray completed. 10/11/18 11:25 - CXR without acute abnormalities - Spoke to Dr Oliva regarding admission. At bedside to evaluate. Discussed with Dr Barron. Christina Jordan PGY1 *DC/Admit/Observation/Transfer Diagnosis at time of Disposition: Asthma exacerbation Qualifiers: Asthma severity: mild Asthma persistence: unspecified Qualified Code(s): J45.901 - Unspecified asthma with (acute) exacerbation - Discharge Dispostion Condition at time of disposition: Stable Decision to Admit order: Yes - Referrals Referrals: Marquise Perea MD [Primary Care Provider] - - Patient Instructions - Post Discharge Activity
[2018-10-11] MEDS: ALBUTEROL SO4 2.5/IPRATROPIUM 0.5 INH SOL 3 ML VIAL.NEB. NEB SCH ×4 (09:00→10:11)
[2018-10-11] MEDS ORDERED: ALBUTEROL SO4 2.5/IPRATROPIUM 0.5 INH SOL 3 ML VIAL.NEB. NEB ONE ×2 (09:02→16:09)
[2018-10-11] MEDS ORDERED: MAGNESIUM 1GM/D5W - 1 GM/100 ML IVPB IVPB ONE (09:03)
[2018-10-11 09:37] LABS: BASO % 0.4 % (0-2.0); EOS % 0.1 % (0-4.5); HEMATOCRIT 36.8 % (32.4-45.2); HEMOGLOBIN 12.5 GM/dL (10.7-15.3); MCH 29.8 pg (25.7-33.7); MCHC 33.9 g/dl (32.0-36.0); MEAN CELL VOLUME 87.9 fl (80-96); MEAN PLT VOLUME 10.7 fl (7.5-11.1); MONO % 6.5 % (3.8-10.2); RBC 4.19 M/mm3 (3.60-5.2); RDW 17.5 % (11.6-15.6); WHITE BLOOD COUNT 9.8 K/mm3 (4.0-10.0)
[2018-10-11 09:47] LABS: PLATELET COUNT 197 K/MM3 (134-434)
--- NOTE | 2018-10-11 09:56 | PDOC ---
Attending Attestation - Resident Resident Name: JulianChristina - ED Attending Attestation I have performed the following: I have examined & evaluated the patient, The case was reviewed & discussed with the resident, I agree w/resident's findings & plan, Exceptions are as noted - HPI HPI: 10/11/18 09:52 78 F with h/o asthma/COPD, HTN, DM presenting to ED with SOB, cough, wheezing. Pt states her symptoms started 3 days ago. She believes that she had a cold that started all of this. Pt denies chest pain. Denies leg swelling. States that she called her PMD who started her on prednisone and Z-pack, which she has been taking for 2 days. Pt also reports taking her albuterol neb about 3 times a day, with some improvement. - Physicial Exam PE: 10/11/18 09:57 GENERAL: Awake, alert, and fully oriented, in no acute distress. HEAD: No signs of trauma EYES: PERRLA, EOMI, sclera anicteric, conjunctiva clear ENT: Auricles normal inspection, hearing grossly normal, nares patent, oropharynx clear without exudates. Moist mucosa NECK: Nontender, no stepoffs, Normal ROM, supple, no lymphadenopathy, JVD, or masses LUNGS: + bilateral expiratory wheezing HEART: Regular rate and rhythm, normal S1 and S2, no murmurs, rubs or gallops ABDOMEN: Soft, nontender, normoactive bowel sounds. No guarding, no rebound. No masses EXTREMITIES: Normal range of motion, no edema. No clubbing or cyanosis. No cords, erythema, or tenderness NEUROLOGICAL: Cranial nerves II through XII intact. 5/5 strength and sensation in all extremities, Normal speech, normal gait, normal cerebellar function SKIN: Warm, Dry, normal turgor, no rashes or lesions noted. - Medical Decision Making 10/11/18 09:57 78 F with asthma/COPD exacerbation. Has already been on prednisone and Z-pack but with persistent and worsening symptoms. - Labs, trop - CXR - Nebs - Mg
[2018-10-11 10:04] LABS: ALBUMIN 3.6 g/dl (3.4-5.0); ALK PHOS 63 U/L (45-117); ANION GAP 6 MMOL/L (8-16); BILIRUBIN,TOTAL 0.7 mg/dL (0.2-1); BLOOD UREA NITROGEN 23.2 mg/dL (7-18); CHLORIDE 102 mmol/L (98-107); CO2 27 mmol/L (21-32); CREATININE 0.8 mg/dL (0.55-1.3); GLUCOSE,RANDOM 195 mg/dL (74-106); POTASSIUM 5.9 mmol/L (3.5-5.1); SGOT/AST 62 U/L (15-37); SGPT/ALT 34 U/L (13-61); SODIUM 135 mmol/L (136-145); TOT PROT 6.9 g/dl (6.4-8.2)
[2018-10-11 11:28] LABS: CALCIUM 9.2 mg/dL (8.5-10.1); CREATININE 0.8 mg/dL (0.55-1.3); POTASSIUM 3.8 mmol/L (3.5-5.1)
[2018-10-11] MEDS ORDERED: ACETAMINOPHEN 325 MG TABLET (FP) PO PRN (11:43)
--- NOTE | 2018-10-11 11:48 | HP ---
Admitting History and Physical - Primary Care Physician PCP: Erika Oliva - Admission Chief Complaint: WORSENING ASTHMA History of Present Illness: 78 F with h/o asthma/COPD, HTN, DM presenting to ED with SOB, cough, wheezing. Pt states her symptoms started 3 days ago. She believes that she had a cold that started all of this. Pt denies chest pain. Denies leg swelling. States that she called her PMD who started her on prednisone and Z-pack, which she has been taking for 2 days. Pt also reports taking her albuterol neb about 3 times a day, with some improvement. History Source: Patient, Medical Record - Past Medical History Cardiovascular: Yes: HTN. No: AFIB Pulmonary: Yes: Asthma, COPD Heme/Onc: Yes: Anemia Psych: Yes: Anxiety Endocrine: Yes: Diabetes Mellitus (diet controlled , but she takes SSI and metformin when on steroids) - Past Surgical History Past Surgical History: Yes: Breast Biopsy, Tubal Ligation - Smoking History Smoking history: Never smoked Have you smoked in the past 12 months: No Aproximately how many cigarettes per day: 0 If you are a former smoker, when did you quit?: 1989 - Alcohol/Substance Use Hx Alcohol Use: No History of Substance Use: reports: None - Social History ADL: Independent History of Recent Travel: No Home Medications - Allergies Allergies/Adverse Reactions: Allergies Allergy/AdvReac Type Severity Reaction Status Date / Time Iodinated Contrast- Oral and Allergy Unknown Verified 04/28/18 10:04 IV Dye [IV Dye, Iodine Containing Contrast ] tetracycline [Tetracycline] Allergy Unknown Verified 04/28/18 10:04 shellfish derived Allergy Verified 04/28/18 10:04 - Home Medications Home Medications: Ambulatory Orders Arformoterol Tartrate [Brovana] 15 mcg IH BID 01/02/15 Losartan Potassium 50 mg PO DAILY 01/02/15 metFORMIN HCL [Metformin HCl] 500 mg PO DAILY 01/02/15 Albuterol 0.083% Nebulizer Delmi [Ventolin 0.083% Nebulizer Soln -] 1 neb NEB Q4H PRN #1 box 10/12/15 Montelukast Na [Singulair -] 10 mg PO HS #30 tablet 05/01/16 Albuterol Sulfate Inhaler - [Ventolin HFA Inhaler -] 1 - 2 inh PO QID PRN Insulin Aspart [Novolog Flexpen] 0 unit SQ ASDIR 04/28/18 Mometasone Furoate [Asmanex] 0.135 gm IH HS 04/28/18 Umeclidinium [place] [Incruse Ellipta] 1 puff IH DAILY 04/28/18 Prednisone 30 mg PO ASDIR #32 tablet 04/30/18 Family Disease History - Family Disease History Family Disease History: CA: Father (lung cancer ), Brother (lung cancer ), Son ( lymphoma ) Review of Systems - Review of Systems Constitutional: reports: Other Eyes: reports: No Symptoms HENT: reports: No Symptoms Neck: reports: No Symptoms Cardiovascular: reports: Shortness of Breath Respiratory: reports: Cough, SOB Gastrointestinal: reports: No Symptoms Genitourinary: reports: No Symptoms Musculoskeletal: reports: No Symptoms Integumentary: reports: No Symptoms Neurological: reports: No Symptoms Physical Examination Vital Signs: Vital Signs Temperature 98.2 F 10/11/18 08:17 Pulse Rate 72 10/11/18 08:17 Respiratory Rate 24 H 10/11/18 08:17 Blood Pressure 120/55 L 10/11/18 08:17 O2 Sat by Pulse Oximetry (%) 95 10/11/18 11:17 Constitutional: Yes: Mild Distress Eyes: Yes: WNL HENT: Yes: WNL, Tonsillar Exudate Cardiovascular: Yes: Regular Rate and Rhythm Respiratory: Yes: Diminished, On Nasal O2, Wheezes Gastrointestinal: Yes: WNL Renal/: Yes: WNL Musculoskeletal: Yes: WNL Extremities: Yes: WNL Edema: No Peripheral Pulses WNL: Yes Integumentary: Yes: WNL Wound/Incision: Yes: Clean/Dry Neurological: Yes: WNL ...Motor Strength: WNL Psychiatric: Yes: WNL Labs: CBC, BMP 10/11/18 09:12 10/11/18 11:00 Imaging - Results Chest X-ray: Pending Cat Scan: Pending Problem List - Problems (1) Asthma exacerbation in COPD Code(s): J44.1 - CHRONIC OBSTRUCTIVE PULMONARY DISEASE W (ACUTE) EXACERBATION; J45.901 - UNSPECIFIED ASTHMA WITH (ACUTE) EXACERBATION (2) Diabetes Code(s): E11.9 - TYPE 2 DIABETES MELLITUS WITHOUT COMPLICATIONS (3) Dyspnea Code(s): R06.00 - DYSPNEA, UNSPECIFIED Assessment/Plan CT CHEST AND ECHO 2D PENDING PULMONARY EVAL CARDIO EVAL STEROIDS IV SSI NOVOLOG NEBS RESP SUPPORT
[2018-10-11] MEDS: PANTOPRAZOLE 40 MG TABLET (FP) PO SCH (12:45)
[2018-10-11 12:46] LABS: OVALOCYTE 1+; PLATELET ESTIMATE NORMAL; TARGET CELLS 1+
[2018-10-11] MEDS ORDERED: PANTOPRAZOLE 40 MG TABLET (FP) ONE (13:08)
[2018-10-11] MEDS: ALBUTEROL SO4 2.5/IPRATROPIUM 0.5 INH SOL 3 ML VIAL.NEB. NEB PRN (16:52)
[2018-10-11 17:28] VITALS: BMI 34.1
[2018-10-11] MEDS: metFORMIN HCL 500 MG TABLET (FP) PO SCH (17:51)
[2018-10-11] MEDS: INSULIN SLIDING SCALE (NOVOLOG) 1 VIAL SQ SCH ×2 (17:52→23:08)
[2018-10-11] MEDS: methylPREDNISolone NA SUCC 40 MG/1 ML VIAL IVPUSH SCH (17:52)
[2018-10-11] MEDS ORDERED: PT OWN MED DRAWER 7, Y5N ONE (20:53)
[2018-10-11] MEDS: ARFORMOTEROL TARTRATE 15 MCG/2 ML VIAL NEB SCH (20:54)
[2018-10-11] MEDS ORDERED: MONTELUKAST NA 5 MG TAB.CHEW PO SCH (22:00)
[2018-10-11] MEDS ORDERED: guaiFENesin/D-METHORPHAN HB 10 ML UNIT-DOSE CUPS PO ONE (22:29)
[2018-10-11] MEDS: MONTELUKAST NA 10 MG TABLET PO SCH (23:08)
[2018-10-11] MEDS: BUDESONIDE/FORMETEROL FUMARATE 160/4.5 mcg INHALER IH SCH (23:22)
[2018-10-12] MEDS: ALBUTEROL SO4 2.5/IPRATROPIUM 0.5 INH SOL 3 ML VIAL.NEB. NEB PRN (01:36)
[2018-10-12] MEDS: methylPREDNISolone NA SUCC 40 MG/1 ML VIAL IVPUSH SCH ×4 (02:01→20:51)
[2018-10-12] MEDS: INSULIN SLIDING SCALE (NOVOLOG) 1 VIAL SQ SCH ×4 (06:17→20:59)
[2018-10-12] MEDS: metFORMIN HCL 500 MG TABLET (FP) PO SCH ×2 (06:18→17:12)
[2018-10-12] MEDS: ARFORMOTEROL TARTRATE 15 MCG/2 ML VIAL NEB SCH (07:30)
[2018-10-12 08:11] LABS: HEMATOCRIT 36.5 % (32.4-45.2); HEMOGLOBIN 11.9 GM/dL (10.7-15.3); MCH 28.2 pg (25.7-33.7); MCHC 32.6 g/dl (32.0-36.0); MEAN CELL VOLUME 86.3 fl (80-96); MEAN PLT VOLUME 10.3 fl (7.5-11.1); RBC 4.23 M/mm3 (3.60-5.2); RDW 17.3 % (11.6-15.6); WHITE BLOOD COUNT 10.3 K/mm3 (4.0-10.0)
[2018-10-12 08:59] LABS: PLATELET COUNT 201 K/MM3 (134-434)
[2018-10-12] MEDS ORDERED: PT OWN MED DRAWER 7, Y5N ONE (09:56)
[2018-10-12] MEDS: PANTOPRAZOLE 40 MG TABLET (FP) PO SCH (10:14)
[2018-10-12] MEDS: LOSARTAN POTASSIUM 50 MG TABLET (FP) PO SCH (10:14)
[2018-10-12] MEDS: BUDESONIDE/FORMETEROL FUMARATE 160/4.5 mcg INHALER IH SCH ×2 (10:14→20:59)
--- NOTE | 2018-10-12 10:24 | CON.PULM ---
Consult Consult Specialty:: PULMONARY Referred by:: PMD Reason for Consultation:: SOB/COUGH/WHEEZE - History of Present Illness Chief Complaint: SOB/COUGH/WHEEZE History of Present Illness: Kenyon Kay is a 78yo woman with a PMH of asthma, COPD, HTN, DM who presents with 3 days of increased shortness of breath, wheezing, cough, and increased sputum production. She started taking 40mg prednisone for past three days without relief. She also got a presription for azithromycin from her PMD which she started yesterday. She has been taking all of her scheduled breathing treatments as prescribed, but she has hesitant to use "too much" albuterol. She has been using her home albuterol at most 3x per day recently, though she generally tries to avoid it entirely. She states that she "woke up on life support" once after using albuterol frequently, and she has been afraid to use it since then. 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 No: AFIB Pulmonary: Yes: Asthma, COPD Gastrointestinal: No: Ascites Hepatobiliary: No: Cirrhosis Renal/: No: Renal Failure Reproductive: Yes: Postmenopausal ...: No Psych: Yes: Anxiety Endocrine: Yes: Diabetes Mellitus (diet controlled , but she takes SSI and metformin when on steroids) - Past Surgical History Past Surgical History: Yes: Breast Biopsy, Tubal Ligation - Alcohol/Substance Use Hx Alcohol Use: No History of Substance Use: reports: None - Smoking History Smoking history: Former smoker Have you smoked in the past 12 months: No Aproximately how many cigarettes per day: 0 If you are a former smoker, when did you quit?: 1989 - Social History ADL: Independent Place of : [facility] History of Recent Travel: No Home Medications - Allergies Allergies/Adverse Reactions: Allergies Allergy/AdvReac Type Severity Reaction Status Date / Time Iodinated Contrast- Oral and Allergy Unknown Verified 04/28/18 10:04 IV Dye [IV Dye, Iodine Containing Contrast ] tetracycline [Tetracycline] Allergy Unknown Verified 04/28/18 10:04 shellfish derived Allergy Verified 04/28/18 10:04 - Home Medications Home Medications: Ambulatory Orders Arformoterol Tartrate [Brovana] 15 mcg IH BID 01/02/15 Losartan Potassium 50 mg PO DAILY 01/02/15 metFORMIN HCL [Metformin HCl] 500 mg PO DAILY 01/02/15 Albuterol 0.083% Nebulizer Delmi [Ventolin 0.083% Nebulizer Soln -] 1 neb NEB Q4H PRN #1 box 10/12/15 Montelukast Na [Singulair -] 10 mg PO HS #30 tablet 05/01/16 Albuterol Sulfate Inhaler - [Ventolin HFA Inhaler -] 1 - 2 inh PO QID PRN Insulin Aspart [Novolog Flexpen] 0 unit SQ ASDIR 04/28/18 Mometasone Furoate [Asmanex] 0.135 gm IH HS 04/28/18 Umeclidinium [place] [Incruse Ellipta] 1 puff IH DAILY 04/28/18 Prednisone 30 mg PO ASDIR #32 tablet 04/30/18 Atorvastatin Ca [Lipitor] 20 mg PO DAILY 10/11/18 Chlorthalidone 25 mg PO DAILY 10/11/18 Fluticasone/Vilanterol [Breo Ellipta 200-25 Mcg INH] 1 inh IH HS 10/11/18 Guaifenesin [Mucinex] 600 mg PO BID 10/11/18 Telmisartan [Micardis] 80 mg PO DAILY 10/11/18 Family Disease History - Family Disease History Family Disease History: CA: Father (lung cancer ), Brother (lung cancer ), Son ( lymphoma ) Review of Systems - Review of Systems Constitutional: denies: Fever Eyes: denies: Blurred Vision HENT: denies: Difficult Swallowing Neck: denies: Decreased ROM Cardiovascular: reports: Chest Pain, Shortness of Breath Respiratory: reports: Cough, Exercise Intolerance, SOB on Exertion, Wheezing. denies: Hemoptysis Gastrointestinal: denies: Abdominal Pain Genitourinary: denies: Burning Breasts: reports: No Symptoms Reported Physical Exam Vital Sings: Vital Signs Temperature 98.2 F 10/12/18 06:00 Pulse Rate 79 10/12/18 06:00 Respiratory Rate 20 10/12/18 06:00 Blood Pressure 137/71 10/12/18 06:00 O2 Sat by Pulse Oximetry (%) 98 10/11/18 21:00 Constitutional: Yes: Anxious Eyes: Yes: EOM Intact HENT: Yes: Normocephalic Neck: Yes: Trachea Midline Cardiovascular: Yes: Regular Rate and Rhythm, S1, S2 Respiratory: Yes: Rhonchi, Wheezes Gastrointestinal: Yes: Normal Bowel Sounds, Abdomen, Obese Edema: No Labs: CBC, BMP 10/12/18 07:20 10/11/18 11:00 Imaging - Results Chest X-ray: Report Reviewed, Image Reviewed Cat Scan: Report Reviewed, Image Reviewed Problem List - Problems (1) Asthma exacerbation Code(s): J45.901 - UNSPECIFIED ASTHMA WITH (ACUTE) EXACERBATION Qualifiers: Asthma severity: mild Asthma persistence: unspecified Qualified Code(s): J45.901 - Unspecified asthma with (acute) exacerbation (2) Asthma exacerbation in COPD Code(s): J44.1 - CHRONIC OBSTRUCTIVE PULMONARY DISEASE W (ACUTE) EXACERBATION; J45.901 - UNSPECIFIED ASTHMA WITH (ACUTE) EXACERBATION (3) Dyspnea Code(s): R06.00 - DYSPNEA, UNSPECIFIED (4) Hypertension Code(s): I10 - ESSENTIAL (PRIMARY) HYPERTENSION (5) Osteoarthritis Code(s): M19.90 - UNSPECIFIED OSTEOARTHRITIS, UNSPECIFIED SITE Assessment/Plan O2 SUPPLEMENTATION THEE/SHORT ACTING ANTICHOLINERGIC/LABA/ICS/IV STEROIDS/SINGULAIR CONSIDER ANTIBIOTICS CLOSE MONITORING WILL FOLLOW Geneva GONZALEZ MD
--- NOTE | 2018-10-12 10:29 | PN ---
Progress Note, Physician Chief Complaint: PATIENT AWAKE ALERT STILL WHEEZING DENIES CHEST PAIN DYSPNEA CONTROLLED WITH 02 SUPPORT/NEBS - Current Medication List Current Medications: Active Medications Acetaminophen (Tylenol -) 650 mg PO Q6H PRN PRN Reason: PAIN OR FEVER Albuterol/Ipratropium (Duoneb -) 1 amp NEB RQID CORNELL Budesonide/Formoterol Fumarate (Symbicort 160/4.5mcg -) 2 puff IH BID [facility] Last Admin: 10/12/18 10:14 Dose: 2 puff Insulin Aspart (Novolog Vial Sliding Scale -) 1 vial SQ ACHS [facility]; Protocol Last Admin: 10/12/18 06:17 Dose: 4 units Losartan Potassium (Cozaar -) 50 mg PO DAILY [facility] Last Admin: 10/12/18 10:14 Dose: 50 mg Metformin HCl (Glucophage -) 1,000 mg PO BID@0700,1630 [facility] Last Admin: 10/12/18 06:18 Dose: 1,000 mg Methylprednisolone Sodium Succinate (Solu-Medrol -) 40 mg IVPUSH Q6H-IV CORNELL Montelukast Sodium (Singulair -) 10 mg PO HS [facility] Last Admin: 10/11/18 23:08 Dose: 10 mg Pantoprazole Sodium (Protonix -) 40 mg PO DAILY [facility] Last Admin: 10/12/18 10:14 Dose: 40 mg - Objective Vital Signs: Vital Signs Temperature 98.2 F 10/12/18 06:00 Pulse Rate 79 10/12/18 06:00 Respiratory Rate 20 10/12/18 06:00 Blood Pressure 137/71 10/12/18 06:00 O2 Sat by Pulse Oximetry (%) 98 10/11/18 21:00 Constitutional: Yes: Mild Distress Eyes: Yes: WNL HENT: Yes: WNL Neck: Yes: WNL Cardiovascular: Yes: Regular Rate and Rhythm Respiratory: Yes: On Nasal O2, Rhonchi, Wheezes Gastrointestinal: Yes: WNL Genitourinary: Yes: WNL Musculoskeletal: Yes: WNL Extremities: Yes: WNL Edema: No Peripheral Pulses WNL: Yes Integumentary: Yes: WNL Wound/Incision: Yes: Clean/Dry Neurological: Yes: WNL ...Motor Strength: WNL Psychiatric: Yes: WNL Labs: CBC, BMP 10/12/18 07:20 10/11/18 11:00 Problem List - Problems (1) Asthma exacerbation in COPD Code(s): J44.1 - CHRONIC OBSTRUCTIVE PULMONARY DISEASE W (ACUTE) EXACERBATION; J45.901 - UNSPECIFIED ASTHMA WITH (ACUTE) EXACERBATION (2) Diabetes Code(s): E11.9 - TYPE 2 DIABETES MELLITUS WITHOUT COMPLICATIONS (3) Dyspnea Code(s): R06.00 - DYSPNEA, UNSPECIFIED Assessment/Plan CT CHEST REVIEWED +ATELECTASIS, NO INFILTRATES OR MASSES ECHO PENDING DR ESCALANTE IS THE 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
[2018-10-12] MEDS: ALBUTEROL SO4 2.5/IPRATROPIUM 0.5 INH SOL 3 ML VIAL.NEB. NEB SCH ×3 (11:16→19:50)
[2018-10-12] MEDS: ENOXAPARIN NA (PORCINE) 40 MG/0.4 ML DISP.SYRIN SQ SCH (15:19)
--- NOTE | 2018-10-12 17:04 | EKG ---
Test Reason : Blood Pressure : / mmHG Vent. Rate : 083 BPM Atrial Rate : 083 BPM P-R Int : 150 ms QRS Dur : 152 ms QT Int : 430 ms P-R-T Axes : 061 015 037 degrees QTc Int : 505 ms NORMAL SINUS RHYTHM POSSIBLE LEFT ATRIAL ENLARGEMENT RIGHT BUNDLE BRANCH BLOCK ABNORMAL ECG WHEN COMPARED WITH ECG OF 28-APR-2018 11:13, NO SIGNIFICANT CHANGE WAS FOUND Confirmed by MD IKE, BAKARI ([id number]) on 10/12/2018 5:04:16 PM Referred By: Confirmed By:BAKARI RAMIRES MD
[2018-10-12] MEDS ORDERED: INSULIN (NOVOLOG) ASPART 100 UNITS/ML 10ML VIAL ONE (18:00)
--- NOTE | 2018-10-12 20:43 | CON.CARD ---
Consult Consult Specialty:: cardiology Reason for Consultation:: Shortness of breath - History of Present Illness Chief Complaint: Pt A&Ox3; ambulating in hallway; c/o wheezing. History of Present Illness: 78 yr old black woman with h/o asthma/COPD, diastolic LV dysfunction, HTN, DM, overweight, presenting to ED with SOB, cough, wheezing. Pt states her symptoms started 3 days ago. She believes that she had a cold that started all of this. Pt denies chest pain, but has a dry, hacking cough "but I can't bring anything up". Denies leg swelling. States that she called her PMD who started her on prednisone and Z-pack, which she has been taking for 2 days. Pt also reports taking her albuterol neb about 3 times a day, with some improvement. Pt says she has been walking 20,000 steps a day, has lost 20 lbs, and for 2 months had not need an asthma treatment until the present epdisode.. 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 No: AFIB Pulmonary: Yes: Asthma, COPD Gastrointestinal: No: Ascites Hepatobiliary: No: Cirrhosis Renal/: No: Renal Failure Reproductive: Yes: Postmenopausal ...: No Psych: Yes: Anxiety Endocrine: Yes: Diabetes Mellitus (diet controlled , but she takes SSI and metformin when on steroids) - Past Surgical History Past Surgical History: Yes: Breast Biopsy, Tubal Ligation - Alcohol/Substance Use Hx Alcohol Use: No History of Substance Use: reports: None - Smoking History Smoking history: Former smoker Have you smoked in the past 12 months: No Aproximately how many cigarettes per day: 0 If you are a former smoker, when did you quit?: 1989 - Social History ADL: Independent History of Recent Travel: No Home Medications - Allergies Allergies/Adverse Reactions: Allergies Allergy/AdvReac Type Severity Reaction Status Date / Time Iodinated Contrast- Oral and Allergy Unknown Verified 04/28/18 10:04 IV Dye [IV Dye, Iodine Containing Contrast ] tetracycline [Tetracycline] Allergy Unknown Verified 04/28/18 10:04 shellfish derived Allergy Verified 04/28/18 10:04 - Home Medications Home Medications: Ambulatory Orders Arformoterol Tartrate [Brovana] 15 mcg IH BID 01/02/15 Losartan Potassium 50 mg PO DAILY 01/02/15 metFORMIN HCL [Metformin HCl] 500 mg PO DAILY 01/02/15 Albuterol 0.083% Nebulizer Delmi [Ventolin 0.083% Nebulizer Soln -] 1 neb NEB Q4H PRN #1 box 10/12/15 Montelukast Na [Singulair -] 10 mg PO HS #30 tablet 05/01/16 Albuterol Sulfate Inhaler - [Ventolin HFA Inhaler -] 1 - 2 inh PO QID PRN Insulin Aspart [Novolog Flexpen] 0 unit SQ ASDIR 04/28/18 Mometasone Furoate [Asmanex] 0.135 gm IH HS 04/28/18 Umeclidinium [place] [Incruse Ellipta] 1 puff IH DAILY 04/28/18 Prednisone 30 mg PO ASDIR #32 tablet 04/30/18 Atorvastatin Ca [Lipitor] 20 mg PO DAILY 10/11/18 Chlorthalidone 25 mg PO DAILY 10/11/18 Fluticasone/Vilanterol [Breo Ellipta 200-25 Mcg INH] 1 inh IH HS 10/11/18 Guaifenesin [Mucinex] 600 mg PO BID 10/11/18 Telmisartan [Micardis] 80 mg PO DAILY 10/11/18 Family Disease History - Family Disease History Family Disease History: CA: Father (lung cancer ), Brother (lung cancer ), Son ( lymphoma ) Review of Systems - Review of Systems Constitutional: reports: No Symptoms Eyes: reports: No Symptoms HENT: reports: No Symptoms Neck: reports: No Symptoms Cardiovascular: reports: Shortness of Breath Respiratory: reports: SOB, Wheezing Gastrointestinal: reports: No Symptoms Genitourinary: reports: No Symptoms Breasts: reports: No Symptoms Reported Musculoskeletal: reports: No Symptoms Integumentary: reports: No Symptoms Neurological: reports: No Symptoms Endocrine: reports: No Symptoms Hematology/Lymphatic: reports: No Symptoms Psychiatric: reports: No Symptoms - Risk Factors Known Risk Factors: Yes: Age, Diabetes Mellitus, Hypercholesterolemia, Hypertension, Race, Smoking (former), Other (diastolic heart failure) Vital Signs: Vital Signs Temperature 97.8 F 10/12/18 17:37 Pulse Rate 85 10/12/18 17:37 Respiratory Rate 18 10/12/18 17:37 Blood Pressure 124/56 L 10/12/18 17:37 O2 Sat by Pulse Oximetry (%) 94 L 10/12/18 09:00 Constitutional: Yes: Calm Eyes: Yes: WNL HENT: Yes: WNL Neck: Yes: WNL Respiratory: Yes: Diminished, Wheezes (diffuse; bilateral; primarily expiratory) Renal/: Yes: Anuria Cardiovascular: Yes: Regular Rate and Rhythm JVD: No Carotid Bruit: No PMI: Non-Displaced Heart Sounds: Yes: S1, S2, S4 Murmur: Yes: Systolic Murmur, Grade 1 Musculoskeletal: Yes: WNL Extremities: Yes: WNL Edema: No Peripheral Pulses WNL: Yes Integumentary: Yes: WNL Neurological: Yes: WNL Psychiatric: Yes: Alert, Oriented - Other Data Labs, Other Data: CBC, BMP 10/12/18 07:20 10/11/18 11:00 Echo: Report Reviewed Ejection Fraction %: LVEF > or = 40 % Imaging - Results Chest X-ray: Image Reviewed (no acute pathology) Cat Scan: Image Reviewed (bilateral atelectasis) Problem List - Problems (1) Obesity (BMI 30.0-34.9) Code(s): E66.9 - OBESITY, UNSPECIFIED (2) Asthma exacerbation in COPD Assessment/Plan: Bronchodilators, steroids, O2 per ice cream server. Code(s): J44.1 - CHRONIC OBSTRUCTIVE PULMONARY DISEASE W (ACUTE) EXACERBATION; J45.901 - UNSPECIFIED ASTHMA WITH (ACUTE) EXACERBATION (3) Diabetes Code(s): E11.9 - TYPE 2 DIABETES MELLITUS WITHOUT COMPLICATIONS (4) Diastolic CHF Assessment/Plan: ECHO 04/2018:normal LVEF; abnormal diastolic compliance; mild LVH; mild TR. Code(s): I50.30 - UNSPECIFIED DIASTOLIC (CONGESTIVE) HEART FAILURE (5) Hypercholesteremia Assessment/Plan: Keep LDL cholesterol < 70 mg/dl. Hx HDL>100. Code(s): E78.0 - PURE HYPERCHOLESTEROLEMIA * DO NOT USE * (6) Hypertension Assessment/Plan: on losartan. Code(s): I10 - ESSENTIAL (PRIMARY) HYPERTENSION (7) Osteoarthritis Code(s): M19.90 - UNSPECIFIED OSTEOARTHRITIS, UNSPECIFIED SITE (8) Osteoporosis Code(s): M81.0 - AGE-RELATED OSTEOPOROSIS W/O CURRENT PATHOLOGICAL FRACTURE
[2018-10-12] MEDS: MONTELUKAST NA 10 MG TABLET PO SCH (21:00)
[2018-10-13] MEDS: ALBUTEROL SO4 0.083% IH SOL 2.5 MG/3 ML VIAL.NEB. NEB PRN (00:43)
[2018-10-13] MEDS: guaiFENesin/D-METHORPHAN HB 10 ML UNIT-DOSE CUPS PO PRN ×3 (00:51→23:23)
[2018-10-13] MEDS: methylPREDNISolone NA SUCC 40 MG/1 ML VIAL IVPUSH SCH ×4 (02:47→20:49)
[2018-10-13] MEDS: INSULIN SLIDING SCALE (NOVOLOG) 1 VIAL SQ SCH ×4 (05:59→21:16)
[2018-10-13] MEDS: metFORMIN HCL 500 MG TABLET (FP) PO SCH ×2 (06:00→16:46)
[2018-10-13] MEDS: ALBUTEROL SO4 2.5/IPRATROPIUM 0.5 INH SOL 3 ML VIAL.NEB. NEB SCH ×4 (07:47→20:30)
--- NOTE | 2018-10-13 09:30 | PN ---
Progress Note, Physician History of Present Illness: 78 yr old black woman with h/o asthma/COPD, diastolic LV dysfunction, HTN, DM, overweight, presenting to ED with SOB, cough, wheezing. Pt states her symptoms started 3 days ago. She believes that she had a cold that started all of this. Pt denies chest pain, but has a dry, hacking cough "but I can't bring anything up". Denies leg swelling. States that she called her PMD who started her on prednisone and Z-pack, which she has been taking for 2 days. Pt also reports taking her albuterol neb about 3 times a day, with some improvement. Pt says she has been walking 20,000 steps a day, has lost 20 lbs, and for 2 months had not need an asthma treatment until the present epdisode.. - History Source History Provided By: Patient, Medical Record Limitations to Obtaining History: No Limitations - Current Medication List Current Medications: Active Medications Acetaminophen (Tylenol -) 650 mg PO Q6H PRN PRN Reason: PAIN OR FEVER Albuterol Sulfate (Ventolin 0.083% Nebulizer Soln -) 1 amp NEB Q1H PRN PRN Reason: SHORT OF BREATH/WHEEZING Last Admin: 10/13/18 00:43 Dose: 1 amp Albuterol/Ipratropium (Duoneb -) 1 amp NEB RQID [facility] Last Admin: 10/13/18 07:47 Dose: 1 amp Budesonide/Formoterol Fumarate (Symbicort 160/4.5mcg -) 2 puff IH BID [facility] Last Admin: 10/12/18 20:59 Dose: 2 puff Enoxaparin Sodium (Lovenox -) 40 mg SQ DAILY [facility] Last Admin: 10/12/18 15:19 Dose: 40 mg Guaifenesin (Robitussin Dm -) 10 ml PO Q4H PRN PRN Reason: COUGH Last Admin: 10/13/18 00:51 Dose: 10 ml Insulin Aspart (Novolog Vial Sliding Scale -) 1 vial SQ ACHS [facility]; Protocol Last Admin: 10/13/18 05:59 Dose: 4 units Losartan Potassium (Cozaar -) 50 mg PO DAILY [facility] Last Admin: 10/12/18 10:14 Dose: 50 mg Metformin HCl (Glucophage -) 1,000 mg PO BID@0700,1630 [facility] Last Admin: 10/13/18 06:00 Dose: 1,000 mg Methylprednisolone Sodium Succinate (Solu-Medrol -) 40 mg IVPUSH Q6H-IV [facility] Last Admin: 10/13/18 08:10 Dose: 40 mg Montelukast Sodium (Singulair -) 10 mg PO HS [facility] Last Admin: 10/12/18 21:00 Dose: 10 mg Pantoprazole Sodium (Protonix -) 40 mg PO DAILY [facility] Last Admin: 10/12/18 10:14 Dose: 40 mg - Objective Vital Signs: Vital Signs Temperature 98 F 10/13/18 06:00 Pulse Rate 83 10/13/18 06:00 Respiratory Rate 20 10/13/18 06:00 Blood Pressure 167/71 10/13/18 06:00 O2 Sat by Pulse Oximetry (%) 95 10/12/18 21:00 Eyes: Yes: WNL, Conjunctiva Clear, EOM Intact HENT: Yes: WNL, Atraumatic, Normocephalic Neck: Yes: WNL, Supple, Trachea Midline Cardiovascular: Yes: WNL, Regular Rate and Rhythm Respiratory: Yes: WNL, Regular, CTA Bilaterally Gastrointestinal: Yes: WNL, Normal Bowel Sounds Genitourinary: Yes: WNL Musculoskeletal: Yes: WNL Extremities: Yes: WNL Edema: No Integumentary: Yes: WNL Neurological: Yes: WNL, Alert, Oriented ...Motor Strength: WNL Psychiatric: Yes: WNL Labs: CBC, BMP 10/12/18 07:20 10/11/18 11:00 Assessment/Plan - Problems (1) Obesity (BMI 30.0-34.9) Code(s): E66.9 - OBESITY, UNSPECIFIED (2) Asthma exacerbation in COPD Assessment/Plan: Bronchodilators, steroids, O2 per director of vocational training. Code(s): J44.1 - CHRONIC OBSTRUCTIVE PULMONARY DISEASE W (ACUTE) EXACERBATION; J45.901 - UNSPECIFIED ASTHMA WITH (ACUTE) EXACERBATION (3) Diabetes Code(s): E11.9 - TYPE 2 DIABETES MELLITUS WITHOUT COMPLICATIONS (4) Diastolic CHF Assessment/Plan: ECHO 04/2018:normal LVEF; abnormal diastoic compliance; mild LVH; mild TR. Code(s): I50.30 - UNSPECIFIED DIASTOLIC (CONGESTIVE) HEART FAILURE (5) Hypercholesteremia Code(s): E78.0 - PURE HYPERCHOLESTEROLEMIA * DO NOT USE * (6) Hypertension Code(s): I10 - ESSENTIAL (PRIMARY) HYPERTENSION (7) Osteoarthritis Code(s): M19.90 - UNSPECIFIED OSTEOARTHRITIS, UNSPECIFIED SITE (8) Osteoporosis Code(s): M81.0 - AGE-RELATED OSTEOPOROSIS W/O CURRENT PATHOLOGICAL FRACTURE
[2018-10-13] MEDS: ENOXAPARIN NA (PORCINE) 40 MG/0.4 ML DISP.SYRIN SQ SCH (10:24)
[2018-10-13] MEDS: PANTOPRAZOLE 40 MG TABLET (FP) PO SCH (10:24)
[2018-10-13] MEDS: LOSARTAN POTASSIUM 50 MG TABLET (FP) PO SCH (10:24)
[2018-10-13] MEDS: BUDESONIDE/FORMETEROL FUMARATE 160/4.5 mcg INHALER IH SCH ×2 (10:25→21:15)
--- NOTE | 2018-10-13 10:34 | PN ---
Progress Note (short form) - Note Progress Note: PULMONARY Still with shortness of breath, nonproductive cough, wheezing. Not much changed from yesterday. Vital Signs Period Temp Pulse Resp BP Sys/Stallings Pulse Ox Last 24 Hr 97.8 F-98.1 F 82-90 18-20 124-167/56-71 95 Gen: NAD at rest Heart: RRR Lung: bilateral rhonchi, wheezes Abd: soft, nontender Ext: no edema CBC, BMP 10/12/18 07:20 10/11/18 11:00 Active Medications Acetaminophen (Tylenol -) 650 mg PO Q6H PRN PRN Reason: PAIN OR FEVER Albuterol Sulfate (Ventolin 0.083% Nebulizer Soln -) 1 amp NEB Q1H PRN PRN Reason: SHORT OF BREATH/WHEEZING Last Admin: 10/13/18 00:43 Dose: 1 amp Albuterol/Ipratropium (Duoneb -) 1 amp NEB RQID [facility] Last Admin: 10/13/18 07:47 Dose: 1 amp Budesonide/Formoterol Fumarate (Symbicort 160/4.5mcg -) 2 puff IH BID [facility] Last Admin: 10/13/18 10:25 Dose: 2 puff Enoxaparin Sodium (Lovenox -) 40 mg SQ DAILY [facility] Last Admin: 10/13/18 10:24 Dose: 40 mg Guaifenesin (Robitussin Dm -) 10 ml PO Q4H PRN PRN Reason: COUGH Last Admin: 10/13/18 00:51 Dose: 10 ml Insulin Aspart (Novolog Vial Sliding Scale -) 1 vial SQ ACHS [facility]; Protocol Last Admin: 10/13/18 05:59 Dose: 4 units Losartan Potassium (Cozaar -) 50 mg PO DAILY [facility] Last Admin: 10/13/18 10:24 Dose: 50 mg Metformin HCl (Glucophage -) 1,000 mg PO BID@0700,1630 [facility] Last Admin: 10/13/18 06:00 Dose: 1,000 mg Methylprednisolone Sodium Succinate (Solu-Medrol -) 40 mg IVPUSH Q6H-IV [facility] Last Admin: 10/13/18 08:10 Dose: 40 mg Montelukast Sodium (Singulair -) 10 mg PO HS [facility] Last Admin: 10/12/18 21:00 Dose: 10 mg Pantoprazole Sodium (Protonix -) 40 mg PO DAILY [facility] Last Admin: 10/13/18 10:24 Dose: 40 mg A/P Acute Asthma/COPD Exacerbation HTN DM - continue medrol at current dose - inhaled bronchodilators standing and PRN - O2 to keep SpO2 >90% - singulair - will add azithromycin - DVT prophylaxis
[2018-10-13] MEDS: AZITHROMYCIN IVPB 500 MG/250 ML BAG IVPB SCH (11:16)
[2018-10-13] MEDS ORDERED: INSULIN (NOVOLOG) ASPART 100 UNITS/ML 10ML VIAL ONE (11:38)
--- NOTE | 2018-10-13 11:40 | ECHO ---
Name: LUCY CHUYSYDNIE Exam:Adult Echocardiogram Study Date: 10/13/2018 07:46 AM Age: 78 yrs Reason For Study: SOB Height: 59 in Weight: 165 lb BSA: 1.7 m2 MMode/2D Measurements & Calculations IVSd: 1.0 cm Ao root diam: 2.0 cm LVIDd: 4.2 cm LA dimension: 3.4 cm LVIDs: 2.5 cm LVPWd: 1.0 cm EDV(Teich): 80.1 ml LVOT diam: 2.0 cm ESV(Teich): 21.5 ml LAV (MOD-bp): 71.2 ml Doppler Measurements & Calculations Ao V2 max: 210.5 cm/sec AI max ned: 319.1 cm/sec Ao max P.7 mmHg AI max P.7 mmHg Ao V2 mean: 165.6 cm/sec Ao mean P.8 mmHg AI dec slope: 64.2 cm/sec2 Ao V2 VTI: 51.9 cm ROSELYN(I,D): 2.0 cm2 AI P1/2t: 1456 msec ROESLYN(V,D): 1.8 cm2 LV V1 max P.2 mmHg SV(LVOT): 102.1 ml LV V1 mean P.8 mmHg LV V1 max: 124.7 cm/sec LV V1 mean: 93.2 cm/sec LV V1 VTI: 34.1 cm PA V2 max: 112.7 cm/sec Med Peak E' Ned: 6.7 cm/sec PA max P.1 mmHg Lat Peak E' Ned: 7.8 cm/sec PI Vmax: 124.9 cm/sec Procedure A complete two-dimensional transthoracic echocardiogram was performed (2D, M-mode, Doppler and color flow Doppler). Left Ventricle The left ventricle is normal in size. Left ventricular systolic function is normal. Ejection Fraction = >70%. No regional wall motion abnormalities noted. Right Ventricle The right ventricle is normal size. The right ventricular systolic function is normal. Atria The left atrial size is normal. Right atrial size is normal. Mitral Valve There is mild mitral annular calcification. There is mild to moderate mitral regurgitation. Tricuspid Valve The tricuspid valve is normal in structure and function. There is mild tricuspid regurgitation. Aortic Valve There is moderate aortic sclerosis.;. Mild aortic regurgitation. Pulmonic Valve The pulmonic valve is not well visualized. Trace pulmonic valvular regurgitation. Great Vessels The aortic root is normal size. Pericardium/Pleura There is no pericardial effusion. Interpretation Summary The left ventricle is normal in size. Left ventricular systolic function is normal. No regional wall motion abnormalities noted. Ejection Fraction = >70%. The right ventricular systolic function is normal. The left atrial size is normal. Right atrial size is normal. There is mild mitral annular calcification. There is mild to moderate mitral regurgitation. There is mild tricuspid regurgitation. There is moderate aortic sclerosis. Mild aortic regurgitation. Trace pulmonic valvular regurgitation. There is no pericardial effusion. Wil Couch MD 10/13/2018 11:38 AM
--- NOTE | 2018-10-13 16:47 | PN ---
Progress Note, Physician Chief Complaint: COPD Exacerbation SOB History of Present Illness: Previous notes and events reviewed awake and alert NAD sts breathing is about the same c/o productive cough with green phlegm - Current Medication List Current Medications: Active Medications Acetaminophen (Tylenol -) 650 mg PO Q6H PRN PRN Reason: PAIN OR FEVER Albuterol Sulfate (Ventolin 0.083% Nebulizer Soln -) 1 amp NEB Q1H PRN PRN Reason: SHORT OF BREATH/WHEEZING Last Admin: 10/13/18 00:43 Dose: 1 amp Albuterol/Ipratropium (Duoneb -) 1 amp NEB RQID [facility] Last Admin: 10/13/18 15:11 Dose: 1 amp Budesonide/Formoterol Fumarate (Symbicort 160/4.5mcg -) 2 puff IH BID [facility] Last Admin: 10/13/18 10:25 Dose: 2 puff Enoxaparin Sodium (Lovenox -) 40 mg SQ DAILY [facility] Last Admin: 10/13/18 10:24 Dose: 40 mg Guaifenesin (Robitussin Dm -) 10 ml PO Q4H PRN PRN Reason: COUGH Last Admin: 10/13/18 11:22 Dose: 10 ml Azithromycin (Zithromax 500mg Ivpb (Pre-Docked)) 500 mg in 250 mls @ 250 mls/ hr IVPB DAILY [facility] Stop: 10/17/18 10:59 Last Admin: 10/13/18 11:16 Dose: 250 mls/hr Insulin Aspart (Novolog Vial Sliding Scale -) 1 vial SQ ACHS [facility]; Protocol Last Admin: 10/13/18 11:40 Dose: 6 units Losartan Potassium (Cozaar -) 50 mg PO DAILY [facility] Last Admin: 10/13/18 10:24 Dose: 50 mg Metformin HCl (Glucophage -) 1,000 mg PO BID@0700,1630 [facility] Last Admin: 10/13/18 06:00 Dose: 1,000 mg Methylprednisolone Sodium Succinate (Solu-Medrol -) 40 mg IVPUSH Q6H-IV [facility] Last Admin: 10/13/18 14:15 Dose: 40 mg Montelukast Sodium (Singulair -) 10 mg PO HS [facility] Last Admin: 10/12/18 21:00 Dose: 10 mg Pantoprazole Sodium (Protonix -) 40 mg PO DAILY [facility] Last Admin: 10/13/18 10:24 Dose: 40 mg Zolpidem Tartrate (Ambien -) 5 mg PO HS PRN PRN Reason: INSOMNIA - Objective Vital Signs: Vital Signs Temperature 98.2 F 10/13/18 13:57 Pulse Rate 91 H 10/13/18 13:57 Respiratory Rate 20 10/13/18 13:57 Blood Pressure 124/55 L 10/13/18 13:57 O2 Sat by Pulse Oximetry (%) 97 10/13/18 09:00 Constitutional: Yes: No Distress, Calm Eyes: Yes: Conjunctiva Clear HENT: Yes: Atraumatic Cardiovascular: Yes: Regular Rate and Rhythm Respiratory: Yes: Regular, On Nasal O2, Wheezes Gastrointestinal: Yes: Normal Bowel Sounds, Soft Musculoskeletal: Yes: WNL Extremities: Yes: WNL Edema: No Neurological: Yes: Alert, Oriented Psychiatric: Yes: Alert, Oriented Labs: CBC, BMP 10/12/18 07:20 10/11/18 11:00 Problem List - Problems (1) COPD exacerbation Assessment/Plan: -Pulm on board -Azithromycin -Solumedrol -O2 via [place] -keep SpO2 >90% -bronchodilators -Symbicort -Chest CT scan shows bibasilar atelectasis, right greater than left Code(s): J44.1 - CHRONIC OBSTRUCTIVE PULMONARY DISEASE W (ACUTE) EXACERBATION (2) Diabetes Assessment/Plan: -BGM [facility] -ISS -Metformin -HgA1c 6.7% Code(s): E11.9 - TYPE 2 DIABETES MELLITUS WITHOUT COMPLICATIONS (3) Hypertension Assessment/Plan: -Losartan -low Na diet Code(s): I10 - ESSENTIAL (PRIMARY) HYPERTENSION (4) Dyspnea Assessment/Plan: -bronchodilators -pulm on board -Solumedrol -Singulair Code(s): R06.00 - DYSPNEA, UNSPECIFIED Assessment/Plan see problem list dvt ppx
[2018-10-13] MEDS: MONTELUKAST NA 10 MG TABLET PO SCH (21:15)
[2018-10-13] MEDS: ZOLPIDEM TARTRATE 5 MG TABLET PO PRN (23:23)
[2018-10-14] MEDS: methylPREDNISolone NA SUCC 40 MG/1 ML VIAL IVPUSH SCH ×4 (02:44→21:44)
[2018-10-14] MEDS: metFORMIN HCL 500 MG TABLET (FP) PO SCH ×2 (06:44→17:21)
[2018-10-14] MEDS: INSULIN SLIDING SCALE (NOVOLOG) 1 VIAL SQ SCH ×4 (06:47→22:44)
[2018-10-14] MEDS: ALBUTEROL SO4 2.5/IPRATROPIUM 0.5 INH SOL 3 ML VIAL.NEB. NEB SCH ×4 (07:30→20:20)
[2018-10-14 07:54] LABS: HEMATOCRIT 34.7 % (32.4-45.2); HEMOGLOBIN 11.4 GM/dL (10.7-15.3); MCH 28.5 pg (25.7-33.7); MCHC 32.8 g/dl (32.0-36.0); MEAN CELL VOLUME 87.1 fl (80-96); MEAN PLT VOLUME 10.5 fl (7.5-11.1); PLATELET COUNT 212 K/MM3 (134-434); RBC 3.98 M/mm3 (3.60-5.2); RDW 17.1 % (11.6-15.6); WHITE BLOOD COUNT 14.5 K/mm3 (4.0-10.0)
[2018-10-14 08:03] LABS: ALBUMIN 3.3 g/dl (3.4-5.0); BILIRUBIN,TOTAL 0.3 mg/dL (0.2-1); CALCIUM 9.4 mg/dL (8.5-10.1); CREATININE 0.8 mg/dL (0.55-1.3); POTASSIUM 4.5 mmol/L (3.5-5.1)
--- NOTE | 2018-10-14 08:24 | PN ---
Progress Note, Physician History of Present Illness: feels better no cp - Current Medication List Current Medications: Active Medications Acetaminophen (Tylenol -) 650 mg PO Q6H PRN PRN Reason: PAIN OR FEVER Albuterol Sulfate (Ventolin 0.083% Nebulizer Soln -) 1 amp NEB Q1H PRN PRN Reason: SHORT OF BREATH/WHEEZING Last Admin: 10/13/18 00:43 Dose: 1 amp Albuterol/Ipratropium (Duoneb -) 1 amp NEB RQID [facility] Last Admin: 10/14/18 07:30 Dose: 1 amp Budesonide/Formoterol Fumarate (Symbicort 160/4.5mcg -) 2 puff IH BID [facility] Last Admin: 10/13/18 21:15 Dose: 2 puff Enoxaparin Sodium (Lovenox -) 40 mg SQ DAILY [facility] Last Admin: 10/13/18 10:24 Dose: 40 mg Guaifenesin (Robitussin Dm -) 10 ml PO Q4H PRN PRN Reason: COUGH Last Admin: 10/13/18 23:23 Dose: 10 ml Azithromycin (Zithromax 500mg Ivpb (Pre-Docked)) 500 mg in 250 mls @ 250 mls/ hr IVPB DAILY [facility] Stop: 10/17/18 10:59 Last Admin: 10/13/18 11:16 Dose: 250 mls/hr Insulin Aspart (Novolog Vial Sliding Scale -) 1 vial SQ ACHS [facility]; Protocol Last Admin: 10/14/18 06:47 Dose: 6 units Losartan Potassium (Cozaar -) 50 mg PO DAILY [facility] Last Admin: 10/13/18 10:24 Dose: 50 mg Metformin HCl (Glucophage -) 1,000 mg PO BID@0700,1630 [facility] Last Admin: 10/14/18 06:44 Dose: 1,000 mg Methylprednisolone Sodium Succinate (Solu-Medrol -) 40 mg IVPUSH Q6H-IV [facility] Last Admin: 10/14/18 02:44 Dose: 40 mg Montelukast Sodium (Singulair -) 10 mg PO HS [facility] Last Admin: 10/13/18 21:15 Dose: 10 mg Pantoprazole Sodium (Protonix -) 40 mg PO DAILY [facility] Last Admin: 10/13/18 10:24 Dose: 40 mg Zolpidem Tartrate (Ambien -) 5 mg PO HS PRN PRN Reason: INSOMNIA Last Admin: 10/13/18 23:23 Dose: 5 mg - Objective Vital Signs: Vital Signs Temperature 98.6 F 10/14/18 06:00 Pulse Rate 79 10/14/18 06:00 Respiratory Rate 20 10/14/18 06:00 Blood Pressure 143/55 L 10/14/18 06:00 O2 Sat by Pulse Oximetry (%) 97 10/13/18 21:00 Cardiovascular: Yes: Regular Rate and Rhythm Respiratory: Yes: Regular, CTA Bilaterally Gastrointestinal: Yes: Normal Bowel Sounds, Soft. No: Tenderness Labs: CBC, BMP 10/14/18 06:10 Assessment/Plan - Problems (1) COPD exacerbation Assessment/Plan: -Pulm on board -Azithromycin -Solumedrol -O2 via [place] -keep SpO2 >90% -bronchodilators -Symbicort -Chest CT scan shows bibasilar atelectasis, right greater than left Code(s): J44.1 - CHRONIC OBSTRUCTIVE PULMONARY DISEASE W (ACUTE) EXACERBATION (2) Diabetes Assessment/Plan: -BGM ACHS -ISS -Metformin -HgA1c 6.7% Code(s): E11.9 - TYPE 2 DIABETES MELLITUS WITHOUT COMPLICATIONS (3) Hypertension Assessment/Plan: -Losartan -low Na diet Code(s): I10 - ESSENTIAL (PRIMARY) HYPERTENSION (4) Dyspnea Assessment/Plan: -bronchodilators -pulm on board -Solumedrol -Singulair Code(s): R06.00 - DYSPNEA, UNSPECIFIED
[2018-10-14] MEDS: LOSARTAN POTASSIUM 50 MG TABLET (FP) PO SCH (10:11)
[2018-10-14] MEDS: PANTOPRAZOLE 40 MG TABLET (FP) PO SCH (10:11)
[2018-10-14] MEDS: AZITHROMYCIN IVPB 500 MG/250 ML BAG IVPB SCH (10:11)
[2018-10-14] MEDS: ENOXAPARIN NA (PORCINE) 40 MG/0.4 ML DISP.SYRIN SQ SCH (10:11)
[2018-10-14] MEDS: BUDESONIDE/FORMETEROL FUMARATE 160/4.5 mcg INHALER IH SCH (10:12)
[2018-10-14] MEDS: guaiFENesin/D-METHORPHAN HB 10 ML UNIT-DOSE CUPS PO PRN ×2 (11:56→22:45)
[2018-10-14] MEDS ORDERED: INSULIN (NOVOLOG) ASPART 100 UNITS/ML 10ML VIAL ONE (21:19)
[2018-10-14] MEDS: MONTELUKAST NA 10 MG TABLET PO SCH (22:45)
[2018-10-14] MEDS: ALBUTEROL SO4 0.083% IH SOL 2.5 MG/3 ML VIAL.NEB. NEB PRN (23:30)
[2018-10-15] MEDS: ZOLPIDEM TARTRATE 5 MG TABLET PO PRN ×2 (00:05→23:35)
[2018-10-15] MEDS: methylPREDNISolone NA SUCC 40 MG/1 ML VIAL IVPUSH SCH ×4 (03:10→21:06)
[2018-10-15] MEDS: INSULIN SLIDING SCALE (NOVOLOG) 1 VIAL SQ SCH ×4 (07:15→21:06)
[2018-10-15] MEDS: metFORMIN HCL 500 MG TABLET (FP) PO SCH ×2 (07:15→16:42)
[2018-10-15] MEDS: ALBUTEROL SO4 2.5/IPRATROPIUM 0.5 INH SOL 3 ML VIAL.NEB. NEB SCH ×4 (07:25→20:32)
[2018-10-15] MEDS: LOSARTAN POTASSIUM 50 MG TABLET (FP) PO SCH (09:34)
[2018-10-15] MEDS: ENOXAPARIN NA (PORCINE) 40 MG/0.4 ML DISP.SYRIN SQ SCH (09:34)
[2018-10-15] MEDS: AZITHROMYCIN IVPB 500 MG/250 ML BAG IVPB SCH (09:34)
[2018-10-15] MEDS: BREO ELLIPTA 200MCG/25MCG IH SCH (09:34)
[2018-10-15] MEDS: PANTOPRAZOLE 40 MG TABLET (FP) PO SCH (09:34)
--- NOTE | 2018-10-15 12:19 | PN ---
Progress Note, Physician History of Present Illness: 78 yr old black woman with h/o asthma/COPD, diastolic LV dysfunction, HTN, DM, overweight, presenting to ED with SOB, cough, wheezing. Pt states her symptoms started 3 days ago. She believes that she had a cold that started all of this. Pt denies chest pain, but has a dry, hacking cough "but I can't bring anything up". Denies leg swelling. States that she called her PMD who started her on prednisone and Z-pack, which she has been taking for 2 days. Pt also reports taking her albuterol neb about 3 times a day, with some improvement. Pt says she has been walking 20,000 steps a day, has lost 20 lbs, and for 2 months had not need an asthma treatment until the present epdisode.. - History Source History Provided By: Patient, Medical Record Limitations to Obtaining History: No Limitations - Current Medication List Current Medications: Active Medications Acetaminophen (Tylenol -) 650 mg PO Q6H PRN PRN Reason: PAIN OR FEVER Albuterol Sulfate (Ventolin 0.083% Nebulizer Soln -) 1 amp NEB Q1H PRN PRN Reason: SHORT OF BREATH/WHEEZING Last Admin: 10/14/18 23:30 Dose: 1 amp Albuterol/Ipratropium (Duoneb -) 1 amp NEB RQID [facility] Last Admin: 10/15/18 07:25 Dose: 1 amp Enoxaparin Sodium (Lovenox -) 40 mg SQ DAILY [facility] Last Admin: 10/15/18 09:34 Dose: 40 mg Guaifenesin (Robitussin Dm -) 10 ml PO Q4H PRN PRN Reason: COUGH Last Admin: 10/14/18 22:45 Dose: 10 ml Azithromycin (Zithromax 500mg Ivpb (Pre-Docked)) 500 mg in 250 mls @ 250 mls/ hr IVPB DAILY [facility] Stop: 10/17/18 10:59 Last Admin: 10/15/18 09:34 Dose: 250 mls/hr Insulin Aspart (Novolog Vial Sliding Scale -) 1 vial SQ ACHS [facility]; Protocol Last Admin: 10/15/18 11:54 Dose: 4 units Losartan Potassium (Cozaar -) 50 mg PO DAILY [facility] Last Admin: 10/15/18 09:34 Dose: 50 mg Metformin HCl (Glucophage -) 1,000 mg PO BID@0700,1630 [facility] Last Admin: 10/15/18 07:15 Dose: 1,000 mg Methylprednisolone Sodium Succinate (Solu-Medrol -) 40 mg IVPUSH Q6H-IV [facility] Last Admin: 10/15/18 08:46 Dose: 40 mg Montelukast Sodium (Singulair -) 10 mg PO HS [facility] Last Admin: 10/14/18 22:45 Dose: 10 mg Breo Ellipta 200mcg/ (25mcg) 1 each IH DAILY [facility] Last Admin: 10/15/18 09:34 Dose: 1 each Pantoprazole Sodium (Protonix -) 40 mg PO DAILY [facility] Last Admin: 10/15/18 09:34 Dose: 40 mg Zolpidem Tartrate (Ambien -) 5 mg PO HS PRN PRN Reason: INSOMNIA Last Admin: 10/15/18 00:05 Dose: 5 mg - Objective Vital Signs: Vital Signs Temperature 98.1 F 10/15/18 09:00 Pulse Rate 89 10/15/18 09:00 Respiratory Rate 18 10/15/18 09:00 Blood Pressure 143/57 L 10/15/18 09:00 O2 Sat by Pulse Oximetry (%) 97 10/15/18 09:00 Eyes: Yes: WNL, Conjunctiva Clear, EOM Intact HENT: Yes: WNL, Atraumatic, Normocephalic Neck: Yes: WNL, Supple, Trachea Midline Cardiovascular: Yes: WNL, Regular Rate and Rhythm Respiratory: Yes: WNL, Regular, CTA Bilaterally Gastrointestinal: Yes: WNL, Normal Bowel Sounds Genitourinary: Yes: WNL Musculoskeletal: Yes: WNL Extremities: Yes: WNL Edema: No Integumentary: Yes: WNL Neurological: Yes: WNL, Alert, Oriented ...Motor Strength: WNL Psychiatric: Yes: WNL Labs: CBC, BMP 10/14/18 06:10 10/14/18 06:10 Assessment/Plan - Problems (1) Obesity (BMI 30.0-34.9) Code(s): E66.9 - OBESITY, UNSPECIFIED (2) Asthma exacerbation in COPD Assessment/Plan: Bronchodilators, steroids, O2 per wood fence erector. Code(s): J44.1 - CHRONIC OBSTRUCTIVE PULMONARY DISEASE W (ACUTE) EXACERBATION; J45.901 - UNSPECIFIED ASTHMA WITH (ACUTE) EXACERBATION (3) Diabetes Code(s): E11.9 - TYPE 2 DIABETES MELLITUS WITHOUT COMPLICATIONS (4) Diastolic CHF Assessment/Plan: ECHO 04/2018:normal LVEF; abnormal diastoic compliance; mild LVH; mild TR. Code(s): I50.30 - UNSPECIFIED DIASTOLIC (CONGESTIVE) HEART FAILURE (5) Hypercholesteremia Code(s): E78.0 - PURE HYPERCHOLESTEROLEMIA * DO NOT USE * (6) Hypertension Code(s): I10 - ESSENTIAL (PRIMARY) HYPERTENSION (7) Osteoarthritis Code(s): M19.90 - UNSPECIFIED OSTEOARTHRITIS, UNSPECIFIED SITE (8) Osteoporosis Code(s): M81.0 - AGE-RELATED OSTEOPOROSIS W/O CURRENT PATHOLOGICAL FRACTURE
--- NOTE | 2018-10-15 14:29 | PN ---
Progress Note, Physician History of Present Illness: pulmonary alert,oob-chair,still c/o sob - Current Medication List Current Medications: Active Medications Acetaminophen (Tylenol -) 650 mg PO Q6H PRN PRN Reason: PAIN OR FEVER Albuterol Sulfate (Ventolin 0.083% Nebulizer Soln -) 1 amp NEB Q1H PRN PRN Reason: SHORT OF BREATH/WHEEZING Last Admin: 10/14/18 23:30 Dose: 1 amp Albuterol/Ipratropium (Duoneb -) 1 amp NEB RQID [facility] Last Admin: 10/15/18 07:25 Dose: 1 amp Enoxaparin Sodium (Lovenox -) 40 mg SQ DAILY [facility] Last Admin: 10/15/18 09:34 Dose: 40 mg Guaifenesin (Robitussin Dm -) 10 ml PO Q4H PRN PRN Reason: COUGH Last Admin: 10/14/18 22:45 Dose: 10 ml Azithromycin (Zithromax 500mg Ivpb (Pre-Docked)) 500 mg in 250 mls @ 250 mls/ hr IVPB DAILY [facility] Stop: 10/17/18 10:59 Last Admin: 10/15/18 09:34 Dose: 250 mls/hr Insulin Aspart (Novolog Vial Sliding Scale -) 1 vial SQ ACHS [facility]; Protocol Last Admin: 10/15/18 11:54 Dose: 4 units Losartan Potassium (Cozaar -) 50 mg PO DAILY [facility] Last Admin: 10/15/18 09:34 Dose: 50 mg Metformin HCl (Glucophage -) 1,000 mg PO BID@0700,1630 [facility] Last Admin: 10/15/18 07:15 Dose: 1,000 mg Methylprednisolone Sodium Succinate (Solu-Medrol -) 40 mg IVPUSH Q6H-IV [facility] Last Admin: 10/15/18 08:46 Dose: 40 mg Montelukast Sodium (Singulair -) 10 mg PO HS [facility] Last Admin: 10/14/18 22:45 Dose: 10 mg Breo Ellipta 200mcg/ (25mcg) 1 each IH DAILY [facility] Last Admin: 10/15/18 09:34 Dose: 1 each Pantoprazole Sodium (Protonix -) 40 mg PO DAILY [facility] Last Admin: 10/15/18 09:34 Dose: 40 mg Zolpidem Tartrate (Ambien -) 5 mg PO HS PRN PRN Reason: INSOMNIA Last Admin: 10/15/18 00:05 Dose: 5 mg - Objective Vital Signs: Vital Signs Temperature 98.1 F 10/15/18 09:00 Pulse Rate 89 10/15/18 09:00 Respiratory Rate 18 10/15/18 09:00 Blood Pressure 143/57 L 10/15/18 09:00 O2 Sat by Pulse Oximetry (%) 97 10/15/18 09:00 Constitutional: Yes: Well Nourished, Calm Eyes: Yes: WNL HENT: Yes: WNL Neck: Yes: WNL Cardiovascular: Yes: Regular Rate and Rhythm, S1, S2 Respiratory: Yes: Wheezes (bilateral wheezes) Gastrointestinal: Yes: Normal Bowel Sounds, Soft Extremities: Yes: WNL Edema: No Labs: CBC, BMP 10/14/18 06:10 10/14/18 06:10 Problem List - Problems (1) Asthma exacerbation Code(s): J45.901 - UNSPECIFIED ASTHMA WITH (ACUTE) EXACERBATION Qualifiers: Asthma severity: mild Asthma persistence: unspecified Qualified Code(s): J45.901 - Unspecified asthma with (acute) exacerbation (2) Obesity (BMI 30.0-34.9) Code(s): E66.9 - OBESITY, UNSPECIFIED (3) Asthma exacerbation in COPD Code(s): J44.1 - CHRONIC OBSTRUCTIVE PULMONARY DISEASE W (ACUTE) EXACERBATION; J45.901 - UNSPECIFIED ASTHMA WITH (ACUTE) EXACERBATION (4) Diabetes Code(s): E11.9 - TYPE 2 DIABETES MELLITUS WITHOUT COMPLICATIONS (5) Diastolic CHF Code(s): I50.30 - UNSPECIFIED DIASTOLIC (CONGESTIVE) HEART FAILURE (6) Dyspnea Code(s): R06.00 - DYSPNEA, UNSPECIFIED (7) Hypertension Code(s): I10 - ESSENTIAL (PRIMARY) HYPERTENSION Assessment/Plan A/P Acute Asthma/COPD Exacerbation HTN DM - medrol at current dose start taper in am - inhaled bronchodilators standing and PRN - O2 to keep SpO2 >90% - singulair - azithromycin - DVT prophylaxis DR BROWN
[2018-10-15] MEDS: guaiFENesin/D-METHORPHAN HB 10 ML UNIT-DOSE CUPS PO PRN (15:04)
[2018-10-15] MEDS ORDERED: INSULIN (NOVOLOG) ASPART 100 UNITS/ML 10ML VIAL ONE (16:32)
--- NOTE | 2018-10-15 18:08 | PN ---
Progress Note, Physician Chief Complaint: COPD Exacerbation SOB History of Present Illness: Previous notes and events reviewed awake and alert NAD sts breathing is slightly better c/o productive cough - Current Medication List Current Medications: Active Medications Acetaminophen (Tylenol -) 650 mg PO Q6H PRN PRN Reason: PAIN OR FEVER Albuterol Sulfate (Ventolin 0.083% Nebulizer Soln -) 1 amp NEB Q1H PRN PRN Reason: SHORT OF BREATH/WHEEZING Last Admin: 10/14/18 23:30 Dose: 1 amp Albuterol/Ipratropium (Duoneb -) 1 amp NEB RQID [facility] Last Admin: 10/15/18 17:00 Dose: Not Given Enoxaparin Sodium (Lovenox -) 40 mg SQ DAILY [facility] Last Admin: 10/15/18 09:34 Dose: 40 mg Guaifenesin (Robitussin Dm -) 10 ml PO Q4H PRN PRN Reason: COUGH Last Admin: 10/15/18 15:04 Dose: 10 ml Azithromycin (Zithromax 500mg Ivpb (Pre-Docked)) 500 mg in 250 mls @ 250 mls/ hr IVPB DAILY [facility] Stop: 10/17/18 10:59 Last Admin: 10/15/18 09:34 Dose: 250 mls/hr Insulin Aspart (Novolog Vial Sliding Scale -) 1 vial SQ ACHS [facility]; Protocol Last Admin: 10/15/18 16:42 Dose: Not Given Losartan Potassium (Cozaar -) 50 mg PO DAILY [facility] Last Admin: 10/15/18 09:34 Dose: 50 mg Metformin HCl (Glucophage -) 1,000 mg PO BID@0700,1630 [facility] Last Admin: 10/15/18 16:42 Dose: 1,000 mg Methylprednisolone Sodium Succinate (Solu-Medrol -) 40 mg IVPUSH Q6H-IV [facility] Last Admin: 10/15/18 15:04 Dose: 40 mg Montelukast Sodium (Singulair -) 10 mg PO HS [facility] Last Admin: 10/14/18 22:45 Dose: 10 mg Breo Ellipta 200mcg/ (25mcg) 1 each IH DAILY [facility] Last Admin: 10/15/18 09:34 Dose: 1 each Pantoprazole Sodium (Protonix -) 40 mg PO DAILY [facility] Last Admin: 10/15/18 09:34 Dose: 40 mg Zolpidem Tartrate (Ambien -) 5 mg PO HS PRN PRN Reason: INSOMNIA Last Admin: 10/15/18 00:05 Dose: 5 mg - Objective Vital Signs: Vital Signs Temperature 97.8 F 10/15/18 16:30 Pulse Rate 81 10/15/18 16:30 Respiratory Rate 20 10/15/18 16:30 Blood Pressure 160/78 10/15/18 16:30 O2 Sat by Pulse Oximetry (%) 97 10/15/18 09:00 Constitutional: Yes: No Distress, Calm Eyes: Yes: Conjunctiva Clear HENT: Yes: Atraumatic Cardiovascular: Yes: Regular Rate and Rhythm Respiratory: Yes: Regular, Wheezes Gastrointestinal: Yes: Normal Bowel Sounds, Soft Musculoskeletal: Yes: WNL Extremities: Yes: WNL Edema: No Neurological: Yes: Alert, Oriented Psychiatric: Yes: Alert, Oriented Labs: CBC, BMP 10/14/18 06:10 10/14/18 06:10 Problem List - Problems (1) COPD exacerbation Assessment/Plan: -Pulm on board -Azithromycin -Solumedrol -O2 via NC -keep SpO2 >90% -bronchodilators -Symbicort -Chest CT scan shows bibasilar atelectasis, right greater than left Code(s): J44.1 - CHRONIC OBSTRUCTIVE PULMONARY DISEASE W (ACUTE) EXACERBATION (2) Diabetes Assessment/Plan: -BGM ACHS -ISS -Metformin -HgA1c 6.7% Code(s): E11.9 - TYPE 2 DIABETES MELLITUS WITHOUT COMPLICATIONS (3) Hypertension Assessment/Plan: -Losartan -low Na diet Code(s): I10 - ESSENTIAL (PRIMARY) HYPERTENSION (4) Dyspnea Assessment/Plan: -bronchodilators -pulm on board -Solumedrol -Singulair Code(s): R06.00 - DYSPNEA, UNSPECIFIED Assessment/Plan see problem list dvt ppx
[2018-10-15] MEDS: MONTELUKAST NA 10 MG TABLET PO SCH (21:07)
[2018-10-16] MEDS: methylPREDNISolone NA SUCC 40 MG/1 ML VIAL IVPUSH SCH ×4 (02:25→21:50)
[2018-10-16] MEDS: metFORMIN HCL 500 MG TABLET (FP) PO SCH ×2 (07:13→16:54)
[2018-10-16] MEDS: INSULIN SLIDING SCALE (NOVOLOG) 1 VIAL SQ SCH ×4 (07:13→22:04)
[2018-10-16] MEDS: ALBUTEROL SO4 2.5/IPRATROPIUM 0.5 INH SOL 3 ML VIAL.NEB. NEB SCH ×4 (07:25→20:21)
--- NOTE | 2018-10-16 07:40 | PN ---
Progress Note, Physician Chief Complaint: Pt A&Ox3; walking in hallway "10,000 steps so far today". History of Present Illness: 78 yr old black woman with h/o asthma/COPD, diastolic LV dysfunction, HTN, DM, overweight, presenting to ED with SOB, cough, wheezing. Pt states her symptoms started 3 days ago. She believes that she had a cold that started all of this. Pt denies chest pain, but has a dry, hacking cough "but I can't bring anything up". Denies leg swelling. States that she called her PMD who started her on prednisone and Z-pack, which she has been taking for 2 days. Pt also reports taking her albuterol neb about 3 times a day, with some improvement. Pt says she has been walking 20,000 steps a day, has lost 20 lbs, and for 2 months had not need an asthma treatment until the present epdisode.. - Current Medication List Current Medications: Active Medications Acetaminophen (Tylenol -) 650 mg PO Q6H PRN PRN Reason: PAIN OR FEVER Albuterol Sulfate (Ventolin 0.083% Nebulizer Soln -) 1 amp NEB Q1H PRN PRN Reason: SHORT OF BREATH/WHEEZING Last Admin: 10/14/18 23:30 Dose: 1 amp Albuterol/Ipratropium (Duoneb -) 1 amp NEB RQID [facility] Last Admin: 10/15/18 20:32 Dose: 1 amp Enoxaparin Sodium (Lovenox -) 40 mg SQ DAILY [facility] Last Admin: 10/15/18 09:34 Dose: 40 mg Guaifenesin (Robitussin Dm -) 10 ml PO Q4H PRN PRN Reason: COUGH Last Admin: 10/15/18 15:04 Dose: 10 ml Azithromycin (Zithromax 500mg Ivpb (Pre-Docked)) 500 mg in 250 mls @ 250 mls/ hr IVPB DAILY [facility] Stop: 10/17/18 10:59 Last Admin: 10/15/18 09:34 Dose: 250 mls/hr Insulin Aspart (Novolog Vial Sliding Scale -) 1 vial SQ ACHS [facility]; Protocol Last Admin: 10/16/18 07:13 Dose: 6 units Losartan Potassium (Cozaar -) 50 mg PO DAILY [facility] Last Admin: 10/15/18 09:34 Dose: 50 mg Metformin HCl (Glucophage -) 1,000 mg PO BID@0700,1630 [facility] Last Admin: 10/16/18 07:13 Dose: 1,000 mg Methylprednisolone Sodium Succinate (Solu-Medrol -) 40 mg IVPUSH Q6H-IV [facility] Last Admin: 10/16/18 02:25 Dose: 40 mg Montelukast Sodium (Singulair -) 10 mg PO HS [facility] Last Admin: 10/15/18 21:07 Dose: 10 mg Breo Ellipta 200mcg/ (25mcg) 1 each IH DAILY [facility] Last Admin: 10/15/18 09:34 Dose: 1 each Pantoprazole Sodium (Protonix -) 40 mg PO DAILY [facility] Last Admin: 10/15/18 09:34 Dose: 40 mg Zolpidem Tartrate (Ambien -) 5 mg PO HS PRN PRN Reason: INSOMNIA Last Admin: 10/15/18 23:35 Dose: 5 mg - Objective Vital Signs: Vital Signs Temperature 98.5 F 10/16/18 06:00 Pulse Rate 87 10/16/18 06:00 Respiratory Rate 18 10/16/18 06:00 Blood Pressure 131/55 L 10/16/18 06:00 O2 Sat by Pulse Oximetry (%) 98 10/15/18 21:00 Constitutional: Yes: No Distress Eyes: Yes: WNL Cardiovascular: Yes: Murmur (2/6 systolic , LSB-->apex), S1, S2 (split) Respiratory: Yes: Wheezes (expiratory; upper posterior thorax bilaterally) Gastrointestinal: Yes: Soft ...Rectal Exam: Yes: Deferred Genitourinary: No: Anuria Musculoskeletal: Yes: WNL Extremities: Yes: WNL Peripheral Pulses WNL: No Integumentary: Yes: WNL Neurological: Yes: WNL ...Motor Strength: WNL Psychiatric: Yes: WNL Labs: CBC, BMP 10/14/18 06:10 10/14/18 06:10 - ....Imaging Chest X-ray: Image Reviewed EKG: Image Reviewed (NSR; RBBB) Problem List - Problems (1) Obesity (BMI 30.0-34.9) Code(s): E66.9 - OBESITY, UNSPECIFIED (2) Asthma exacerbation in COPD Assessment/Plan: Bronchodilators, steroids, antibiotics, O2 per bucket operator. Code(s): J44.1 - CHRONIC OBSTRUCTIVE PULMONARY DISEASE W (ACUTE) EXACERBATION; J45.901 - UNSPECIFIED ASTHMA WITH (ACUTE) EXACERBATION (3) Diabetes Code(s): E11.9 - TYPE 2 DIABETES MELLITUS WITHOUT COMPLICATIONS (4) Diastolic CHF Assessment/Plan: ECHO 04/2018:normal LVEF; abnormal diastolic compliance; mild LVH; mild TR. On losartan. F/u BUn/Cr, electrolytes, free T4 (TSH mildly decreased), Is and Os, daily wt. Code(s): I50.30 - UNSPECIFIED DIASTOLIC (CONGESTIVE) HEART FAILURE (5) Hypercholesteremia Assessment/Plan: Keep LDL cholesterol < 70 mg/dl. Hx HDL>100. Code(s): E78.0 - PURE HYPERCHOLESTEROLEMIA * DO NOT USE * (6) Hypertension Code(s): I10 - ESSENTIAL (PRIMARY) HYPERTENSION (7) Osteoarthritis Code(s): M19.90 - UNSPECIFIED OSTEOARTHRITIS, UNSPECIFIED SITE (8) Osteoporosis Code(s): M81.0 - AGE-RELATED OSTEOPOROSIS W/O CURRENT PATHOLOGICAL FRACTURE
[2018-10-16 08:23] LABS: HEMATOCRIT 36.3 % (32.4-45.2); HEMOGLOBIN 11.6 GM/dL (10.7-15.3); MCH 27.8 pg (25.7-33.7); MCHC 31.9 g/dl (32.0-36.0); MEAN CELL VOLUME 87.3 fl (80-96); MEAN PLT VOLUME 10.4 fl (7.5-11.1); PLATELET COUNT 220 K/MM3 (134-434); RBC 4.15 M/mm3 (3.60-5.2); RDW 16.8 % (11.6-15.6); WHITE BLOOD COUNT 14.8 K/mm3 (4.0-10.0)
[2018-10-16 08:32] LABS: ALBUMIN 3.1 g/dl (3.4-5.0); BILIRUBIN,TOTAL 0.3 mg/dL (0.2-1); BLOOD UREA NITROGEN 25.4 mg/dL (7-18); CALCIUM 9.2 mg/dL (8.5-10.1); CREATININE 0.8 mg/dL (0.55-1.3); POTASSIUM 4.4 mmol/L (3.5-5.1); TOT PROT 5.8 g/dl (6.4-8.2)
[2018-10-16] MEDS: LOSARTAN POTASSIUM 50 MG TABLET (FP) PO SCH (09:28)
[2018-10-16] MEDS: AZITHROMYCIN IVPB 500 MG/250 ML BAG IVPB SCH (09:29)
[2018-10-16] MEDS: ENOXAPARIN NA (PORCINE) 40 MG/0.4 ML DISP.SYRIN SQ SCH (09:29)
[2018-10-16] MEDS: PANTOPRAZOLE 40 MG TABLET (FP) PO SCH (09:30)
[2018-10-16] MEDS: BREO ELLIPTA 200MCG/25MCG IH SCH (09:30)
--- NOTE | 2018-10-16 10:31 | PN ---
Progress Note (short form) - Note Progress Note: PULMONARY Breathing slightly better but still with shortness of breath, nonproductive cough, wheezing. Vital Signs Period Temp Pulse Resp BP Sys/Stallings Pulse Ox Last 24 Hr 97.8 F-98.5 F 77-87 18-20 131-160/55-78 98 Gen: NAD at rest Heart: RRR Lung: better air entry, scattered rhonchi, wheezes Abd: soft, nontender Ext: no edema CBC, BMP 10/16/18 07:12 10/16/18 07:12 Active Medications Acetaminophen (Tylenol -) 650 mg PO Q6H PRN PRN Reason: PAIN OR FEVER Albuterol Sulfate (Ventolin 0.083% Nebulizer Soln -) 1 amp NEB Q1H PRN PRN Reason: SHORT OF BREATH/WHEEZING Last Admin: 10/14/18 23:30 Dose: 1 amp Albuterol/Ipratropium (Duoneb -) 1 amp NEB RQID [facility] Last Admin: 10/16/18 07:25 Dose: 1 amp Enoxaparin Sodium (Lovenox -) 40 mg SQ DAILY [facility] Last Admin: 10/16/18 09:29 Dose: 40 mg Guaifenesin (Robitussin Dm -) 10 ml PO Q4H PRN PRN Reason: COUGH Last Admin: 10/15/18 15:04 Dose: 10 ml Azithromycin (Zithromax 500mg Ivpb (Pre-Docked)) 500 mg in 250 mls @ 250 mls/ hr IVPB DAILY [facility] Stop: 10/17/18 10:59 Last Admin: 10/16/18 09:29 Dose: 250 mls/hr Insulin Aspart (Novolog Vial Sliding Scale -) 1 vial SQ ACHS [facility]; Protocol Last Admin: 10/16/18 07:13 Dose: 6 units Losartan Potassium (Cozaar -) 50 mg PO DAILY [facility] Last Admin: 10/16/18 09:28 Dose: 50 mg Metformin HCl (Glucophage -) 1,000 mg PO BID@0700,1630 [facility] Last Admin: 10/16/18 07:13 Dose: 1,000 mg Methylprednisolone Sodium Succinate (Solu-Medrol -) 40 mg IVPUSH Q6H-IV [facility] Last Admin: 10/16/18 09:28 Dose: 40 mg Montelukast Sodium (Singulair -) 10 mg PO HS [facility] Last Admin: 10/15/18 21:07 Dose: 10 mg Breo Ellipta 200mcg/ (25mcg) 1 each IH DAILY [facility] Last Admin: 10/16/18 09:30 Dose: 1 each Pantoprazole Sodium (Protonix -) 40 mg PO DAILY [facility] Last Admin: 10/16/18 09:30 Dose: 40 mg Zolpidem Tartrate (Ambien -) 5 mg PO HS PRN PRN Reason: INSOMNIA Last Admin: 10/15/18 23:35 Dose: 5 mg A/P Acute Asthma/COPD Exacerbation HTN DM - will decrease medrol to q8h, may change to PO prednisone 60mg daily in AM if continues to improve - inhaled bronchodilators standing and PRN - O2 to keep SpO2 >90% - singulair - azithromycin - DVT prophylaxis
--- NOTE | 2018-10-16 11:28 | PN ---
Progress Note, Physician Chief Complaint: STILL WHEEZING AND SOB WITH COUGH NO FEVER OR CHILLS - Current Medication List Current Medications: Active Medications Acetaminophen (Tylenol -) 650 mg PO Q6H PRN PRN Reason: PAIN OR FEVER Albuterol Sulfate (Ventolin 0.083% Nebulizer Soln -) 1 amp NEB Q1H PRN PRN Reason: SHORT OF BREATH/WHEEZING Last Admin: 10/14/18 23:30 Dose: 1 amp Albuterol/Ipratropium (Duoneb -) 1 amp NEB RQID [facility] Last Admin: 10/16/18 11:13 Dose: 1 amp Enoxaparin Sodium (Lovenox -) 40 mg SQ DAILY [facility] Last Admin: 10/16/18 09:29 Dose: 40 mg Guaifenesin (Robitussin Dm -) 10 ml PO Q4H PRN PRN Reason: COUGH Last Admin: 10/15/18 15:04 Dose: 10 ml Azithromycin (Zithromax 500mg Ivpb (Pre-Docked)) 500 mg in 250 mls @ 250 mls/ hr IVPB DAILY [facility] Stop: 10/17/18 10:59 Last Admin: 10/16/18 09:29 Dose: 250 mls/hr Insulin Aspart (Novolog Vial Sliding Scale -) 1 vial SQ ACHS [facility]; Protocol Last Admin: 10/16/18 11:19 Dose: 8 units Losartan Potassium (Cozaar -) 50 mg PO DAILY [facility] Last Admin: 10/16/18 09:28 Dose: 50 mg Metformin HCl (Glucophage -) 1,000 mg PO BID@0700,1630 [facility] Last Admin: 10/16/18 07:13 Dose: 1,000 mg Methylprednisolone Sodium Succinate (Solu-Medrol -) 40 mg IVPUSH Q6H-IV [facility] Last Admin: 10/16/18 09:28 Dose: 40 mg Montelukast Sodium (Singulair -) 10 mg PO HS [facility] Last Admin: 10/15/18 21:07 Dose: 10 mg Breo Ellipta 200mcg/ (25mcg) 1 each IH DAILY [facility] Last Admin: 10/16/18 09:30 Dose: 1 each Pantoprazole Sodium (Protonix -) 40 mg PO DAILY [facility] Last Admin: 10/16/18 09:30 Dose: 40 mg Zolpidem Tartrate (Ambien -) 5 mg PO HS PRN PRN Reason: INSOMNIA Last Admin: 10/15/18 23:35 Dose: 5 mg - Objective Vital Signs: Vital Signs Temperature 98.5 F 10/16/18 06:00 Pulse Rate 87 10/16/18 06:00 Respiratory Rate 18 10/16/18 06:00 Blood Pressure 131/55 L 10/16/18 06:00 O2 Sat by Pulse Oximetry (%) 98 10/15/18 21:00 Constitutional: Yes: Mild Distress Eyes: Yes: WNL HENT: Yes: WNL, Other Cardiovascular: Yes: Regular Rate and Rhythm Respiratory: Yes: Cough, Wheezes Gastrointestinal: Yes: WNL Genitourinary: Yes: WNL Musculoskeletal: Yes: WNL Extremities: Yes: WNL Edema: No Peripheral Pulses WNL: Yes Integumentary: Yes: WNL Wound/Incision: Yes: Clean/Dry Neurological: Yes: WNL ...Motor Strength: WNL Psychiatric: Yes: WNL Labs: CBC, BMP 10/16/18 07:12 10/16/18 07:12 Problem List - Problems (1) Asthma exacerbation in COPD Code(s): J44.1 - CHRONIC OBSTRUCTIVE PULMONARY DISEASE W (ACUTE) EXACERBATION; J45.901 - UNSPECIFIED ASTHMA WITH (ACUTE) EXACERBATION (2) Diabetes Code(s): E11.9 - TYPE 2 DIABETES MELLITUS WITHOUT COMPLICATIONS (3) Dyspnea Code(s): R06.00 - DYSPNEA, UNSPECIFIED Assessment/Plan DO NOT DISCHARGE TODAY CONTINUE SOLUMEDROL AND 02 SUPPORT PULMONARY EVAL APPRECIATED SSI NOVOLOG NEBS RESP SUPPORT
--- NOTE | 2018-10-16 17:03 | PN ---
Progress Note, Physician Chief Complaint: Pt A&Ox3; sitting in chair; less wheezing. - Current Medication List Current Medications: Active Medications Acetaminophen (Tylenol -) 650 mg PO Q6H PRN PRN Reason: PAIN OR FEVER Albuterol Sulfate (Ventolin 0.083% Nebulizer Soln -) 1 amp NEB Q1H PRN PRN Reason: SHORT OF BREATH/WHEEZING Last Admin: 10/14/18 23:30 Dose: 1 amp Albuterol/Ipratropium (Duoneb -) 1 amp NEB RQID [facility] Last Admin: 10/16/18 16:01 Dose: 1 amp Enoxaparin Sodium (Lovenox -) 40 mg SQ DAILY [facility] Last Admin: 10/16/18 09:29 Dose: 40 mg Guaifenesin (Robitussin Dm -) 10 ml PO Q4H PRN PRN Reason: COUGH Last Admin: 10/15/18 15:04 Dose: 10 ml Azithromycin (Zithromax 500mg Ivpb (Pre-Docked)) 500 mg in 250 mls @ 250 mls/ hr IVPB DAILY [facility] Stop: 10/17/18 10:59 Last Admin: 10/16/18 09:29 Dose: 250 mls/hr Insulin Aspart (Novolog Vial Sliding Scale -) 1 vial SQ ACHS [facility]; Protocol Last Admin: 10/16/18 16:55 Dose: 6 units Losartan Potassium (Cozaar -) 50 mg PO DAILY [facility] Last Admin: 10/16/18 09:28 Dose: 50 mg Metformin HCl (Glucophage -) 1,000 mg PO BID@0700,1630 [facility] Last Admin: 10/16/18 16:54 Dose: 1,000 mg Methylprednisolone Sodium Succinate (Solu-Medrol -) 40 mg IVPUSH Q6H-IV [facility] Last Admin: 10/16/18 16:54 Dose: 40 mg Montelukast Sodium (Singulair -) 10 mg PO HS [facility] Last Admin: 10/15/18 21:07 Dose: 10 mg Breo Ellipta 200mcg/ (25mcg) 1 each IH DAILY [facility] Last Admin: 10/16/18 09:30 Dose: 1 each Pantoprazole Sodium (Protonix -) 40 mg PO DAILY [facility] Last Admin: 10/16/18 09:30 Dose: 40 mg Zolpidem Tartrate (Ambien -) 5 mg PO HS PRN PRN Reason: INSOMNIA Last Admin: 10/15/18 23:35 Dose: 5 mg - Objective Vital Signs: Vital Signs Temperature 98.3 F 10/16/18 10:00 Pulse Rate 90 10/16/18 10:00 Respiratory Rate 18 10/16/18 10:00 Blood Pressure 141/78 10/16/18 10:00 O2 Sat by Pulse Oximetry (%) 94 L 10/16/18 09:00 Labs: CBC, BMP 10/16/18 07:12 10/16/18 07:12 Problem List - Problems (1) Obesity (BMI 30.0-34.9) Code(s): E66.9 - OBESITY, UNSPECIFIED (2) Asthma exacerbation in COPD Code(s): J44.1 - CHRONIC OBSTRUCTIVE PULMONARY DISEASE W (ACUTE) EXACERBATION; J45.901 - UNSPECIFIED ASTHMA WITH (ACUTE) EXACERBATION (3) Diabetes Code(s): E11.9 - TYPE 2 DIABETES MELLITUS WITHOUT COMPLICATIONS (4) Diastolic CHF Code(s): I50.30 - UNSPECIFIED DIASTOLIC (CONGESTIVE) HEART FAILURE (5) Hypercholesteremia Code(s): E78.0 - PURE HYPERCHOLESTEROLEMIA * DO NOT USE * (6) Hypertension Code(s): I10 - ESSENTIAL (PRIMARY) HYPERTENSION (7) Osteoarthritis Code(s): M19.90 - UNSPECIFIED OSTEOARTHRITIS, UNSPECIFIED SITE (8) Osteoporosis Code(s): M81.0 - AGE-RELATED OSTEOPOROSIS W/O CURRENT PATHOLOGICAL FRACTURE
[2018-10-16] MEDS ORDERED: PT OWN MED DRAWER 7, Y5N ONE (17:06)
[2018-10-16] MEDS ORDERED: diphenhydrAMINE HCL 25 MG CAPSULE (FP) PO ONE (21:45)
[2018-10-16] MEDS: MONTELUKAST NA 10 MG TABLET PO SCH (22:03)
[2018-10-17] MEDS: methylPREDNISolone NA SUCC 40 MG/1 ML VIAL IVPUSH SCH ×2 (03:09→10:51)
[2018-10-17] MEDS: ZOLPIDEM TARTRATE 5 MG TABLET PO PRN (03:14)
[2018-10-17] MEDS: metFORMIN HCL 500 MG TABLET (FP) PO SCH (07:00)
[2018-10-17] MEDS: INSULIN SLIDING SCALE (NOVOLOG) 1 VIAL SQ SCH ×2 (07:00→12:45)
[2018-10-17] MEDS ORDERED: INSULIN (NOVOLOG) ASPART 100 UNITS/ML 10ML VIAL ONE (07:12)
[2018-10-17] MEDS ORDERED: INSULIN (LEVEMIR) 100 UNITS/ML UNITS SQ ONE (07:14)
[2018-10-17] MEDS: ALBUTEROL SO4 2.5/IPRATROPIUM 0.5 INH SOL 3 ML VIAL.NEB. NEB SCH ×2 (07:20→11:35)
[2018-10-17] MEDS ORDERED: PT OWN MED DRAWER 7, Y5N ONE (10:32)
[2018-10-17] MEDS: PANTOPRAZOLE 40 MG TABLET (FP) PO SCH (10:51)
[2018-10-17] MEDS: LOSARTAN POTASSIUM 50 MG TABLET (FP) PO SCH (10:51)
[2018-10-17] MEDS: AZITHROMYCIN IVPB 500 MG/250 ML BAG IVPB SCH (10:51)
[2018-10-17] MEDS: ENOXAPARIN NA (PORCINE) 40 MG/0.4 ML DISP.SYRIN SQ SCH (10:53)
[2018-10-17] MEDS: BREO ELLIPTA 200MCG/25MCG IH SCH (10:54)
[2018-10-17] MEDS: guaiFENesin/D-METHORPHAN HB 10 ML UNIT-DOSE CUPS PO PRN (10:54)
--- NOTE | 2018-10-17 11:54 | PN ---
Progress Note (short form) - Note Progress Note: PULMONARY MUCH IMPROVED WANTS TO GO HOME HAVE CHANGED TO ORAL PREDNISONE VSS/afebrile Gen: NAD at rest Heart: RRR Lung: better air entry, scattered rhonchi, wheezes Abd: soft, nontender Ext: no edema Active Medications reviewed A/P Acute Asthma/COPD Exacerbation resolved HTN DM - changed to PO prednisone 60mg daily - inhaled bronchodilators standing and PRN - O2 to keep SpO2 >90% - singulair - azithromycin - no objection to discharge [place] GONZALEZ MD Problem List - Problems (1) Asthma exacerbation Code(s): J45.901 - UNSPECIFIED ASTHMA WITH (ACUTE) EXACERBATION Qualifiers: Asthma severity: mild Asthma persistence: unspecified Qualified Code(s): J45.901 - Unspecified asthma with (acute) exacerbation (2) Asthma exacerbation in COPD Code(s): J44.1 - CHRONIC OBSTRUCTIVE PULMONARY DISEASE W (ACUTE) EXACERBATION; J45.901 - UNSPECIFIED ASTHMA WITH (ACUTE) EXACERBATION (3) Dyspnea Code(s): R06.00 - DYSPNEA, UNSPECIFIED (4) Hypertension Code(s): I10 - ESSENTIAL (PRIMARY) HYPERTENSION (5) Osteoarthritis Code(s): M19.90 - UNSPECIFIED OSTEOARTHRITIS, UNSPECIFIED SITE
[2018-10-17] MEDS ORDERED: predniSONE 20 MG TABLET (UD) PO SCH (12:00)
--- NOTE | 2018-10-17 14:29 | DS ---
Physical Examination Vital Signs: Vital Signs Temperature 98.5 F 10/17/18 06:00 Pulse Rate 77 10/17/18 06:00 Respiratory Rate 20 10/17/18 06:00 Blood Pressure 142/48 L 10/17/18 06:00 O2 Sat by Pulse Oximetry (%) 94 L 10/16/18 21:00 Findings/Remarks: Patient is a 78 y/o female with past medical history of COPD, HTN, DM, asthma. Patient presented to ER with complaints of SOB, cough, wheezing. She states the symptoms started 3 days ago that began with a cold. Constitutional: Yes: No Distress, Calm Eyes: Yes: Conjunctiva Clear HENT: Yes: Atraumatic Neck: Yes: Supple Cardiovascular: Yes: Regular Rate and Rhythm Respiratory: Yes: Regular, Wheezes Gastrointestinal: Yes: Normal Bowel Sounds, Soft Musculoskeletal: Yes: WNL Extremities: Yes: WNL Edema: No Neurological: Yes: Alert, Oriented Psychiatric: Yes: Alert, Oriented Labs: CBC, BMP 10/16/18 07:12 10/16/18 07:12 Discharge Summary Reason For Visit: EXACERBATION OF ASTHMA;OBSTRUCTIVE CHRONIC BRONCHI Current Active Problems Asthma exacerbation (Acute) Obesity (BMI 30.0-34.9) (Acute) Hospital Course: see progress notes Laboratory Tests 10/11/18 10/11/18 10/11/18 09:12 09:12 09:12 WBC 9.8 RBC 4.19 Hgb 12.5 Hct 36.8 MCV 87.9 MCH 29.8 D MCHC 33.9 RDW 17.5 H Plt Count 197 MPV 10.7 Absolute Neuts (auto) 7.9 Neutrophils % 81.0 Neutrophils % (Manual) 89.9 H Band Neutrophils % 0.0 Lymphocytes % 12.0 D Lymphocytes % (Manual) 4.0 L D Monocytes % 6.5 D Monocytes % (Manual) 6 D Eosinophils % 0.1 Eosinophils % (Manual) 0.0 D Basophils % 0.4 Basophils % (Manual) 0.0 Myelocytes % (Man) 0 Promyelocytes % (Man) 0 Blast Cells % (Manual) 0 Nucleated RBC % 0 Metamyelocytes 0 Hypochromia 1+ Platelet Estimate Normal Polychromasia 0 Poikilocytosis 0 Target Cells 1+ Ovalocytes 1+ Sodium 135 L Potassium 5.9 H Chloride 102 Carbon Dioxide 27 Anion Gap 6 L BUN 23.2 H Creatinine 0.8 Est GFR (CKD-EPI)AfAm 81.84 Est GFR (CKD-EPI)NonAf 70.61 POC Glucometer Random Glucose 195 H Hemoglobin A1c % 6.7 H Calcium 9.0 Total Bilirubin 0.7 AST 62 H ALT 34 Alkaline Phosphatase 63 Creatine Kinase 325 H Creatine Kinase Index 0.9 CK-MB (CK-2) 3.2 Troponin I < 0.02 Total Protein 6.9 Albumin 3.6 Triglycerides Cholesterol Total LDL Cholesterol HDL Cholesterol TSH Free T4 10/11/18 10/11/18 10/11/18 11:00 13:03 17:09 WBC RBC Hgb Hct MCV MCH MCHC RDW Plt Count MPV Absolute Neuts (auto) Neutrophils % Neutrophils % (Manual) Band Neutrophils % Lymphocytes % Lymphocytes % (Manual) Monocytes % Monocytes % (Manual) Eosinophils % Eosinophils % (Manual) Basophils % Basophils % (Manual) Myelocytes % (Man) Promyelocytes % (Man) Blast Cells % (Manual) Nucleated RBC % Metamyelocytes Hypochromia Platelet Estimate Polychromasia Poikilocytosis Target Cells Ovalocytes Sodium 137 Potassium 3.8 Chloride 102 Carbon Dioxide 27 Anion Gap 8 BUN 23.0 H Creatinine 0.8 Est GFR (CKD-EPI)AfAm 81.84 Est GFR (CKD-EPI)NonAf 70.61 POC Glucometer 253 206 Random Glucose 257 H Hemoglobin A1c % Calcium 9.2 Total Bilirubin AST ALT Alkaline Phosphatase Creatine Kinase Creatine Kinase Index CK-MB (CK-2) Troponin I Total Protein Albumin Triglycerides Cholesterol Total LDL Cholesterol HDL Cholesterol TSH Free T4 10/11/18 10/12/18 10/12/18 23:06 06:16 07:20 WBC 10.3 H RBC 4.23 Hgb 11.9 Hct 36.5 MCV 86.3 MCH 28.2 MCHC 32.6 RDW 17.3 H Plt Count 201 MPV 10.3 Absolute Neuts (auto) Neutrophils % Neutrophils % (Manual) Band Neutrophils % Lymphocytes % Lymphocytes % (Manual) Monocytes % Monocytes % (Manual) Eosinophils % Eosinophils % (Manual) Basophils % Basophils % (Manual) Myelocytes % (Man) Promyelocytes % (Man) Blast Cells % (Manual) Nucleated RBC % Metamyelocytes Hypochromia Platelet Estimate Polychromasia Poikilocytosis Target Cells Ovalocytes Sodium Potassium Chloride Carbon Dioxide Anion Gap BUN Creatinine Est GFR (CKD-EPI)AfAm Est GFR (CKD-EPI)NonAf POC Glucometer 234 214 Random Glucose Hemoglobin A1c % Calcium Total Bilirubin AST ALT Alkaline Phosphatase Creatine Kinase Creatine Kinase Index CK-MB (CK-2) Troponin I Total Protein Albumin Triglycerides Cholesterol Total LDL Cholesterol HDL Cholesterol TSH Free T4 10/12/18 10/12/18 10/12/18 07:20 11:32 17:09 WBC RBC Hgb Hct MCV MCH MCHC RDW Plt Count MPV Absolute Neuts (auto) Neutrophils % Neutrophils % (Manual) Band Neutrophils % Lymphocytes % Lymphocytes % (Manual) Monocytes % Monocytes % (Manual) Eosinophils % Eosinophils % (Manual) Basophils % Basophils % (Manual) Myelocytes % (Man) Promyelocytes % (Man) Blast Cells % (Manual) Nucleated RBC % Metamyelocytes Hypochromia Platelet Estimate Polychromasia Poikilocytosis Target Cells Ovalocytes Sodium Potassium Chloride Carbon Dioxide Anion Gap BUN Creatinine Est GFR (CKD-EPI)AfAm Est GFR (CKD-EPI)NonAf POC Glucometer 184 309 Random Glucose Hemoglobin A1c % Calcium Total Bilirubin AST ALT Alkaline Phosphatase Creatine Kinase Creatine Kinase Index CK-MB (CK-2) Troponin I Total Protein Albumin Triglycerides 40 Cholesterol 201 H Total LDL Cholesterol 67 HDL Cholesterol 123 H TSH 0.14 L Free T4 10/12/18 10/13/18 10/13/18 20:54 05:54 08:55 WBC RBC Hgb Hct MCV MCH MCHC RDW Plt Count MPV Absolute Neuts (auto) Neutrophils % Neutrophils % (Manual) Band Neutrophils % Lymphocytes % Lymphocytes % (Manual) Monocytes % Monocytes % (Manual) Eosinophils % Eosinophils % (Manual) Basophils % Basophils % (Manual) Myelocytes % (Man) Promyelocytes % (Man) Blast Cells % (Manual) Nucleated RBC % Metamyelocytes Hypochromia Platelet Estimate Polychromasia Poikilocytosis Target Cells Ovalocytes Sodium Potassium Chloride Carbon Dioxide Anion Gap BUN Creatinine Est GFR (CKD-EPI)AfAm Est GFR (CKD-EPI)NonAf POC Glucometer 133 250 Random Glucose Hemoglobin A1c % Calcium Total Bilirubin AST ALT Alkaline Phosphatase Creatine Kinase Creatine Kinase Index CK-MB (CK-2) Troponin I Total Protein Albumin Triglycerides Cholesterol Total LDL Cholesterol HDL Cholesterol TSH Free T4 0.85 10/13/18 10/13/18 10/13/18 11:40 16:45 20:55 WBC RBC Hgb Hct MCV MCH MCHC RDW Plt Count MPV Absolute Neuts (auto) Neutrophils % Neutrophils % (Manual) Band Neutrophils % Lymphocytes % Lymphocytes % (Manual) Monocytes % Monocytes % (Manual) Eosinophils % Eosinophils % (Manual) Basophils % Basophils % (Manual) Myelocytes % (Man) Promyelocytes % (Man) Blast Cells % (Manual) Nucleated RBC % Metamyelocytes Hypochromia Platelet Estimate Polychromasia Poikilocytosis Target Cells Ovalocytes Sodium Potassium Chloride Carbon Dioxide Anion Gap BUN Creatinine Est GFR (CKD-EPI)AfAm Est GFR (CKD-EPI)NonAf POC Glucometer 276 235 200 Random Glucose Hemoglobin A1c % Calcium Total Bilirubin AST ALT Alkaline Phosphatase Creatine Kinase Creatine Kinase Index CK-MB (CK-2) Troponin I Total Protein Albumin Triglycerides Cholesterol Total LDL Cholesterol HDL Cholesterol TSH Free T4 10/14/18 10/14/18 10/14/18 06:10 06:10 06:23 WBC 14.5 H RBC 3.98 Hgb 11.4 Hct 34.7 MCV 87.1 MCH 28.5 MCHC 32.8 RDW 17.1 H Plt Count 212 MPV 10.5 Absolute Neuts (auto) Neutrophils % Neutrophils % (Manual) Band Neutrophils % Lymphocytes % Lymphocytes % (Manual) Monocytes % Monocytes % (Manual) Eosinophils % Eosinophils % (Manual) Basophils % Basophils % (Manual) Myelocytes % (Man) Promyelocytes % (Man) Blast Cells % (Manual) Nucleated RBC % Metamyelocytes Hypochromia Platelet Estimate Polychromasia Poikilocytosis Target Cells Ovalocytes Sodium 136 Potassium 4.5 Chloride 100 Carbon Dioxide 28 Anion Gap 7 L BUN 28.0 H Creatinine 0.8 Est GFR (CKD-EPI)AfAm 81.84 Est GFR (CKD-EPI)NonAf 70.61 POC Glucometer 261 Random Glucose 282 H Hemoglobin A1c % Calcium 9.4 Total Bilirubin 0.3 AST 11 L ALT 24 Alkaline Phosphatase 53 Creatine Kinase Creatine Kinase Index CK-MB (CK-2) Troponin I Total Protein 6.0 L Albumin 3.3 L Triglycerides Cholesterol Total LDL Cholesterol HDL Cholesterol TSH Free T4 10/14/18 10/14/18 10/14/18 11:54 17:20 22:42 WBC RBC Hgb Hct MCV MCH MCHC RDW Plt Count MPV Absolute Neuts (auto) Neutrophils % Neutrophils % (Manual) Band Neutrophils % Lymphocytes % Lymphocytes % (Manual) Monocytes % Monocytes % (Manual) Eosinophils % Eosinophils % (Manual) Basophils % Basophils % (Manual) Myelocytes % (Man) Promyelocytes % (Man) Blast Cells % (Manual) Nucleated RBC % Metamyelocytes Hypochromia Platelet Estimate Polychromasia Poikilocytosis Target Cells Ovalocytes Sodium Potassium Chloride Carbon Dioxide Anion Gap BUN Creatinine Est GFR (CKD-EPI)AfAm Est GFR (CKD-EPI)NonAf POC Glucometer [phone] Random Glucose Hemoglobin A1c % Calcium Total Bilirubin AST ALT Alkaline Phosphatase Creatine Kinase Creatine Kinase Index CK-MB (CK-2) Troponin I Total Protein Albumin Triglycerides Cholesterol Total LDL Cholesterol HDL Cholesterol TSH Free T4 10/15/18 10/15/18 10/15/18 07:11 11:53 16:41 WBC RBC Hgb Hct MCV MCH MCHC RDW Plt Count MPV Absolute Neuts (auto) Neutrophils % Neutrophils % (Manual) Band Neutrophils % Lymphocytes % Lymphocytes % (Manual) Monocytes % Monocytes % (Manual) Eosinophils % Eosinophils % (Manual) Basophils % Basophils % (Manual) Myelocytes % (Man) Promyelocytes % (Man) Blast Cells % (Manual) Nucleated RBC % Metamyelocytes Hypochromia Platelet Estimate Polychromasia Poikilocytosis Target Cells Ovalocytes Sodium Potassium Chloride Carbon Dioxide Anion Gap BUN Creatinine Est GFR (CKD-EPI)AfAm Est GFR (CKD-EPI)NonAf POC Glucometer 258 237 197 Random Glucose Hemoglobin A1c % Calcium Total Bilirubin AST ALT Alkaline Phosphatase Creatine Kinase Creatine Kinase Index CK-MB (CK-2) Troponin I Total Protein Albumin Triglycerides Cholesterol Total LDL Cholesterol HDL Cholesterol TSH Free T4 10/15/18 10/16/18 10/16/18 21:03 06:43 07:12 WBC 14.8 H RBC 4.15 Hgb 11.6 Hct 36.3 MCV 87.3 MCH 27.8 MCHC 31.9 L RDW 16.8 H Plt Count 220 MPV 10.4 Absolute Neuts (auto) Neutrophils % Neutrophils % (Manual) Band Neutrophils % Lymphocytes % Lymphocytes % (Manual) Monocytes % Monocytes % (Manual) Eosinophils % Eosinophils % (Manual) Basophils % Basophils % (Manual) Myelocytes % (Man) Promyelocytes % (Man) Blast Cells % (Manual) Nucleated RBC % Metamyelocytes Hypochromia Platelet Estimate Polychromasia Poikilocytosis Target Cells Ovalocytes Sodium Potassium Chloride Carbon Dioxide Anion Gap BUN Creatinine Est GFR (CKD-EPI)AfAm Est GFR (CKD-EPI)NonAf POC Glucometer 264 275 Random Glucose Hemoglobin A1c % Calcium Total Bilirubin AST ALT Alkaline Phosphatase Creatine Kinase Creatine Kinase Index CK-MB (CK-2) Troponin I Total Protein Albumin Triglycerides Cholesterol Total LDL Cholesterol HDL Cholesterol TSH Free T4 10/16/18 10/16/18 10/16/18 07:12 11:17 16:37 WBC RBC Hgb Hct MCV MCH MCHC RDW Plt Count MPV Absolute Neuts (auto) Neutrophils % Neutrophils % (Manual) Band Neutrophils % Lymphocytes % Lymphocytes % (Manual) Monocytes % Monocytes % (Manual) Eosinophils % Eosinophils % (Manual) Basophils % Basophils % (Manual) Myelocytes % (Man) Promyelocytes % (Man) Blast Cells % (Manual) Nucleated RBC % Metamyelocytes Hypochromia Platelet Estimate Polychromasia Poikilocytosis Target Cells Ovalocytes Sodium 134 L Potassium 4.4 Chloride 99 Carbon Dioxide 28 Anion Gap 6 L BUN 25.4 H Creatinine 0.8 Est GFR (CKD-EPI)AfAm 81.84 Est GFR (CKD-EPI)NonAf 70.61 POC Glucometer 255 269 Random Glucose 273 H Hemoglobin A1c % Calcium 9.2 Total Bilirubin 0.3 AST 9 L ALT 25 Alkaline Phosphatase 59 Creatine Kinase Creatine Kinase Index CK-MB (CK-2) Troponin I Total Protein 5.8 L Albumin 3.1 L Triglycerides Cholesterol Total LDL Cholesterol HDL Cholesterol TSH Free T4 10/16/18 10/17/18 10/17/18 21:00 06:04 12:38 WBC RBC Hgb Hct MCV MCH MCHC RDW Plt Count MPV Absolute Neuts (auto) Neutrophils % Neutrophils % (Manual) Band Neutrophils % Lymphocytes % Lymphocytes % (Manual) Monocytes % Monocytes % (Manual) Eosinophils % Eosinophils % (Manual) Basophils % Basophils % (Manual) Myelocytes % (Man) Promyelocytes % (Man) Blast Cells % (Manual) Nucleated RBC % Metamyelocytes Hypochromia Platelet Estimate Polychromasia Poikilocytosis Target Cells Ovalocytes Sodium Potassium Chloride Carbon Dioxide Anion Gap BUN Creatinine Est GFR (CKD-EPI)AfAm Est GFR (CKD-EPI)NonAf POC Glucometer 209 284 171 Random Glucose Hemoglobin A1c % Calcium Total Bilirubin AST ALT Alkaline Phosphatase Creatine Kinase Creatine Kinase Index CK-MB (CK-2) Troponin I Total Protein Albumin Triglycerides Cholesterol Total LDL Cholesterol HDL Cholesterol TSH Free T4 Active Medications Generic Name Dose Route Start Last Admin Trade Name Freq PRN Reason Stop Dose Admin Acetaminophen 650 mg 10/11/18 11:43 Tylenol - PO Q6H PRN PAIN OR FEVER Albuterol Sulfate 1 amp 10/12/18 10:27 10/14/18 23:30 Ventolin 0.083% Nebulizer Soln - NEB 1 amp Q1H PRN Administration SHORT OF BREATH/WHEEZING Albuterol/Ipratropium 1 amp 10/12/18 12:00 10/17/18 11:35 Duoneb - NEB 1 amp RQID CORNELL Administration Enoxaparin Sodium 40 mg 10/12/18 14:00 10/17/18 10:53 Lovenox - SQ 40 mg DAILY CORNELL Administration Guaifenesin 10 ml 10/12/18 10:25 10/17/18 10:54 Robitussin Dm - PO 10 ml Q4H PRN Administration COUGH Insulin Aspart 1 vial 10/11/18 16:30 10/17/18 12:45 Novolog Vial Sliding Scale - SQ Not Given ACHS CORNELL Protocol Losartan Potassium 50 mg 10/12/18 10:00 10/17/18 10:51 Cozaar - PO 50 mg DAILY CORNELL Administration Metformin HCl 1,000 mg 10/11/18 16:30 10/17/18 07:00 Glucophage - PO 1,000 mg BID@0700,1630 CORNELL Administration Montelukast Sodium 10 mg 10/11/18 22:45 10/16/18 22:03 Singulair - PO 10 mg HS CORNELL Administration Breo Ellipta 200mcg/ 1 each 10/15/18 10:00 10/17/18 10:54 25mcg IH Not Given DAILY CORNELL Pantoprazole Sodium 40 mg 10/11/18 11:45 10/17/18 10:51 Protonix - PO 40 mg DAILY CORNELL Administration Prednisone 60 mg 10/17/18 12:00 Deltasone - PO DAILY CORNELL Zolpidem Tartrate 5 mg 10/13/18 22:00 10/17/18 03:14 Ambien - PO 5 mg HS PRN Administration INSOMNIA Condition: Stable - Instructions Diet, Activity, Other Instructions: Follow up with pmd in 48 hrs after discharge Follow up with [facility] Dr Perea next week PREDNISONE TAPER: take 60mg for 3 days, take 50mg for 3 days, take 40mg until you are evaluated by pulmonary they will titrate the remaining doses return to ER if develop severe respiratory distress, chest pain, severe pain Referrals: Marquise Perea MD [Primary Care Provider] - Hermilo Cevallos MD [Staff Physician] - Disposition: HOME - Home Medications Comprehensive Discharge Medication List: Ambulatory Orders RX: Arformoterol Tartrate [Brovana] 15 mcg IH BID 01/02/15 RX: Losartan Potassium 50 mg PO DAILY 01/02/15 RX: Albuterol 0.083% Nebulizer Delmi [Ventolin 0.083% Nebulizer Soln -] 1 neb NEB Q4H PRN #1 box 10/12/15 RX: Montelukast Na [Singulair -] 10 mg PO HS #30 tablet 05/01/16 RX: Albuterol Sulfate Inhaler - [Ventolin HFA Inhaler -] 1 - 2 inh PO QID PRN RX: Insulin Aspart [Novolog Flexpen] 0 unit SQ ASDIR 04/28/18 RX: Mometasone Furoate [Asmanex] 0.135 gm IH HS 04/28/18 RX: Umeclidinium [place] [Incruse Ellipta] 1 puff IH DAILY 04/28/18 RX: Atorvastatin Ca [Lipitor] 20 mg PO DAILY 10/11/18 RX: Chlorthalidone 25 mg PO DAILY 10/11/18 RX: Fluticasone/Vilanterol [Breo Ellipta 200-25 Mcg INH] 1 inh IH HS 10/11/18 RX: Guaifenesin [Mucinex] 600 mg PO BID 10/11/18 RX: Telmisartan [Micardis] 80 mg PO DAILY 10/11/18 RX: Guaifenesin Dm [Robitussin Dm -] 10 ml PO Q4H PRN #1 bottle 10/17/18 RX: Losartan Potassium [Cozaar -] 50 mg PO DAILY tablet 10/17/18 RX: Pantoprazole Sodium [Protonix -] 40 mg PO DAILY #30 tablet.ec 10/17/18 RX: metFORMIN HCL [Glucophage -] 1,000 mg PO BID@0700,1630 #30 tablet 10/17/18 RX: predniSONE [Deltasone -] 60 mg PO DAILY #30 tablet 10/17/18
[2018-10-17 16:59] VITALS: BP 140/69; PULSE 83; TEMP 98.3
== END 2018-10-17 15:17 | disposition home or self-care (01) | DRG 191 ==
LOC: JER 08:15 → JERBED 11:27 → J8W 16:12
PROVIDERS: ADMIT Family Medicine; ATTEND Family Medicine
DX: J44.1 Chronic obstructive pulmonary disease with (acute) exacerbation (principal); J98.11 Atelectasis; I11.0 Hypertensive heart disease with heart failure; I50.30 Unspecified diastolic (congestive) heart failure; E78.5 Hyperlipidemia, unspecified; E11.9 Type 2 diabetes mellitus without complications; D64.9 Anemia, unspecified; F41.9 Anxiety disorder, unspecified; R06.00 Dyspnea, unspecified; E66.9 Obesity, unspecified; Z68.33 Body mass index [BMI] 33.0-33.9, adult; M19.90 Unspecified osteoarthritis, unspecified site; M81.0 Age-related osteoporosis without current pathological fracture; I45.10 Unspecified right bundle-branch block; Z87.891 Personal history of nicotine dependence
CPT/HCPCS: 36415; 71045-TC-FY; 71046-TC-FY; 71250-TC; 80048; 80053; 80061; 82550; 82553; 82962; 83036; 83721; 84439; 84443; 84484; 85025; 85027; 93005; 93010; 93306-TC; 94640; 99283-25

== ENCOUNTER 2018-11-12 07:29 | Inpatient (IN) | payer OTHER ==
[2018-11-12] MEDS ORDERED: methylPREDNISolone NA SUCC 125 MG/2 ML VIAL IVPUSH ONE (08:28)
[2018-11-12] MEDS ORDERED: ALBUTEROL SO4 2.5/IPRATROPIUM 0.5 INH SOL 3 ML VIAL.NEB. NEB ONE ×3 (08:28→10:20)
[2018-11-12] MEDS ORDERED: methylPREDNISolone NA SUCC 125 MG/2 ML VIAL ONE (08:32)
[2018-11-12 09:17] LABS: BASO % 0.1 % (0-2.0); EOS % 0.2 % (0-4.5); HEMATOCRIT 38.7 % (32.4-45.2); HEMOGLOBIN 12.6 GM/dL (10.7-15.3); LYMPH % 16.7 % (8-40); MCH 28.5 pg (25.7-33.7); MCHC 32.7 g/dl (32.0-36.0); MEAN CELL VOLUME 87.2 fl (80-96); MEAN PLT VOLUME 9.8 fl (7.5-11.1); MONO % 11.5 % (3.8-10.2); NEUT % 71.5 % (42.8-82.8); PLATELET COUNT 244 K/MM3 (134-434); RBC 4.44 M/mm3 (3.60-5.2); RDW 15.4 % (11.6-15.6); WHITE BLOOD COUNT 14.7 K/mm3 (4.0-10.0)
[2018-11-12 09:40] LABS: ALBUMIN 3.5 g/dl (3.4-5.0); BILIRUBIN,TOTAL 0.4 mg/dL (0.2-1); BLOOD UREA NITROGEN 40.2 mg/dL (7-18); CALCIUM 9.6 mg/dL (8.5-10.1); CREATININE 1.1 mg/dL (0.55-1.3); TOT PROT 6.3 g/dl (6.4-8.2)
[2018-11-12] MEDS ORDERED: MAGNESIUM SULF 50% (8.12 MEQ/2 ML-1 GM VIAL) IVPB ONE (09:58)
[2018-11-12] MEDS ORDERED: ALBUTEROL SO4 0.083% IH SOL 2.5 MG/3 ML VIAL.NEB. NEB ONE ×2 (10:16→16:42)
[2018-11-12] MEDS ORDERED: MAGNESIUM SULF 50% (8.12 MEQ/2 ML-1 GM VIAL) ONE (10:20)
--- NOTE | 2018-11-12 10:31 | PDOC ---
Documentation entered by Cecilia Coronado SCRIBE, acting as scribe for Kevon Albarran MD. Kevon Albarran MD: This documentation has been prepared by the Cliff albarran Adrianna, SCRIBE, under my direction and personally reviewed by me in its entirety. I confirm that the documentation accurately reflects all work, treatment, procedures, and medical decision making performed by me. History of Present Illness - General Chief Complaint: Asthma Stated Complaint: ASTHMA,SHORTNESS OF BREATH Time Seen by Provider: 11/12/18 08:17 - History of Present Illness Initial Comments: The patient is an 87 Y F, with PMH of asthma/COPD, HTN, anxiety, anemia, and DM , presents for asthma exacerbation for 1 month. Patient was admitted for this complaint last month, and was discharged 3 weeks ago with Zpack and an increasing dose of prednisone (recently increased to 40 2x a day 2 days ago). She notes no change in her symptoms since her discharge, and Dr. Sanchez advised she come to the ED for solumedrol. She endorses associated cough, which was productive of green sputum but is now white and bilateral LE edema (L>R). She was intubated once over 25 years ago, and her current peak flow is 200 ( highest was 300). She denies tobacco use, but notes many people in her building smoke. Denies fever, chills, diarrhea, chest pain, sudden weight loss. Patient notes she also has thrush, with associated burning sensation in the throat (on Nystatin). Allergies: Oral and IV Iodinated Contrast, tetracyclines, shellfish Surgical History: Breast biopsy, tubal ligation Social History: Former smoker (quit 25 years ago). PCP: Dr. Mohini Sanchez Pulm: Dr. Perea 11/12/18 09:28 Past History - Past Medical History Allergies/Adverse Reactions: Allergies Allergy/AdvReac Type Severity Reaction Status Date / Time Iodinated Contrast- Oral and Allergy Unknown Verified 04/28/18 10:04 IV Dye [IV Dye, Iodine Containing Contrast ] tetracycline [Tetracycline] Allergy Unknown Verified 04/28/18 10:04 shellfish derived Allergy Verified 04/28/18 10:04 Home Medications: Ambulatory Orders Arformoterol Tartrate [Brovana] 15 mcg IH BID 01/02/15 Albuterol 0.083% Nebulizer Delmi [Ventolin 0.083% Nebulizer Soln -] 1 neb NEB Q4H PRN #1 box 10/12/15 Albuterol Sulfate Inhaler - [Ventolin HFA Inhaler -] 1 - 2 inh PO QID PRN Insulin Aspart [Novolog Flexpen] 0 unit SQ ASDIR 04/28/18 Umeclidinium [place] [Incruse Ellipta] 1 puff IH DAILY 04/28/18 Atorvastatin Ca [Lipitor] 20 mg PO DAILY 10/11/18 Chlorthalidone 25 mg PO DAILY 10/11/18 Fluticasone/Vilanterol [Breo Ellipta 200-25 Mcg INH] 1 inh IH HS 10/11/18 Telmisartan [Micardis] 80 mg PO DAILY 10/11/18 Azithromycin 250 mg PO DAILY #5 tablet 10/17/18 Pantoprazole Sodium [Protonix -] 40 mg PO DAILY #30 tablet.ec 10/17/18 metFORMIN HCL [Glucophage -] 1,000 mg PO BID@0700,1630 #30 tablet 10/17/18 Azithromycin [Zithromax -] 250 mg PO DAILY 11/12/18 Beclomethasone Dipropionate [Qvar Redihaler] 10.6 gm IH DAILY 11/12/18 Nystatin 100,000 unit PO DAILY 11/12/18 predniSONE [Deltasone -] 40 mg PO BID 11/12/18 Anemia: Yes Asthma: Yes Cancer: No Cardiac Disorders: Yes CVA: No COPD: Yes CHF: Yes Dementia: No Diabetes: Yes GI Disorders: No Disorders: No HTN: Yes Hypercholesterolemia: No Liver Disease: No Seizures: No Thyroid Disease: No - Surgical History Abdominal Surgery: Yes Appendectomy: No Cardiac Surgery: No Cholecystectomy: No GI Surgery: No Lung Surgery: No Neurologic Surgery: No Orthopedic Surgery: No - Immunization History Immunization Up to Date: Yes - Suicide/Smoking/Psychosocial Hx Smoking Status: No Smoking History: Never smoked Have you smoked in the past 12 months: No Number of Cigarettes Smoked Daily: 0 If you are a former smoker, when did you quit?: 1989 Information on smoking cessation initiated: No Hx Alcohol Use: No Drug/Substance Use Hx: No Substance Use Type: None Hx Substance Use Treatment: No Respiratory Specific PMHX - Complaint Specific PMHX Bronchitis: Yes Pneumonia: Yes Review of Systems - Review of Systems Comments:: CONSTITUTIONAL: No fever, no chills, no fatigue EYES: No visual changes ENT: +Burning sensation in throat secondary to thrush. No ear pain. CARDIOVASCULAR: No chest pain, no palpitations RESPIRATORY: +Asthma exacerbation. +SOB. +Productive cough (green sputum to white). GI: No abdominal pain, no nausea, no vomiting, no constipation, no diarrhea GENITOURINARY: No dysuria, no frequency, no hematuria MUSKULOSKELETAL: +Bilateral LE edema (L>R). No back pain, no joint pain, no myalgias SKIN: No rash NEURO: No headache 11/12/18 09:28 *Physical Exam - Vital Signs Last Vital Signs Temp Pulse Resp BP Pulse Ox 98.7 F 81 16 125/56 L 99 11/12/18 07:38 11/12/18 07:38 11/12/18 07:38 11/12/18 07:38 11/12/18 08:14 - Physical Exam Comments: CONSTITUTIONAL: Well-appearing; well-nourished; in no apparent distress HEAD: Normocephalic; atraumatic EYES: PERRL; EOM intact ENMT: External appears normal; normal oropharynx NECK: Supple; non-tender; no cervical lymphadenopathy CARD: Normal S1, S2; no murmurs, rubs, or gallops RESP: +Extensie rhonchi and expiratory wheezing in all lung sanchez. Normal chest excursion with respiration. ABD: Soft, non-distended; non-tender; no palpable organomegaly, no palpable hernias EXT: Normal ROM in all four extremities; non-tender to palpation; distal pulses intact SKIN: Warm, dry, no rash NEURO: No focal neurological deficiencies. 11/12/18 09:28 ED Treatment Course - LABORATORY CBC & Chemistry Diagram: 11/12/18 08:40 11/12/18 08:40 - ADDITIONAL ORDERS Additional order review: Laboratory Results 11/12/18 08:40 Sodium 137 Potassium 5.0 Chloride 103 Carbon Dioxide 31 Anion Gap 4 L BUN 40.2 H Creatinine 1.1 Est GFR (CKD-EPI)AfAm 55.69 Est GFR (CKD-EPI)NonAf 48.05 Random Glucose 183 H Calcium 9.6 Total Bilirubin 0.4 AST 28 ALT 32 Alkaline Phosphatase 54 Total Protein 6.3 L Albumin 3.5 11/12/18 08:40 RBC 4.44 MCV 87.2 MCHC 32.7 RDW 15.4 MPV 9.8 Neutrophils % 71.5 Lymphocytes % 16.7 D Monocytes % 11.5 H Eosinophils % 0.2 D Basophils % 0.1 - RADIOLOGY Radiology Studies Ordered: Category Date Time Status CHEST PA & LAT [RAD] Stat Radiology 11/12/18 08:27 Completed Radiograph Interpretation: EXAM#: TYPE/EXAM: RESULT: [id number] RAD/CHEST PA LAT Shortness of breath. Impression. No evidence of active pulmonary disease. No pleural effusion, or pneumothorax is seen. Reported By: Curt Larry MD 11/12/18 09:45 - Medications Given in the ED: ED Medications Discontinued Medications Generic Name Dose Route Start Last Admin Trade Name Freq PRN Reason Stop Dose Admin Albuterol Sulfate 1 amp 11/12/18 10:16 11/12/18 10:21 Ventolin 0.083% Nebulizer Soln - NEB 11/12/18 10:17 1 amp ONCE ONE Administration Albuterol/Ipratropium 3 amp 11/12/18 08:28 11/12/18 08:49 Duoneb - NEB 11/12/18 08:29 3 amp ONCE ONE Administration Magnesium Sulfate 2 gm 11/12/18 09:58 11/12/18 10:21 Magnesium Sulfate IVPB 11/12/18 09:59 2 gm ONCE ONE Administration Methylprednisolone Sodium Succinate 125 mg 11/12/18 08:28 11/12/18 08:49 Solu-Medrol - IVPUSH 11/12/18 08:29 125 mg ONCE ONE Administration - Consult/PCP Time Called: 11:10 (paged. 11:56am- paged. 12:03- spoke with Dr. Sanchez) Case discussed with personal care physician: Mohini Sanchez Medical Decision Making - Medical Decision Making 11/12/18 10:26 Patient is a 78-year-old female with history of refractory asthma, on high-dose oral prednisone therapy, inhaled corticosteroids a long-acting bronchodilators and albuterol MDI. Patient presents with tachypnea, dyspnea, diffuse rhonchi and expiratory wheezing bilaterally with decreased air entry bilaterally; patient's oxygen saturation is noted to be 98% on room air. We'll administer parenteral Solu-Medrol, Combivent nebulizer therapy, magnesium sulfate. We'll obtain chest x-ray to rule out acute infection. Patient will likely require admission for treatment of her acute asthma exacerbation. 11/12/18 11:58 Patient reassessed. Patient is resting comfortably. Tachypnea and dyspnea have decreased. Respiratory rate is noted to be 18 at this time. Oxygen saturation room air is noted to be 98%. Extensive rhonchi and expiratory wheezing continue to be present. Will continue with albuterol as needed and Atrovent every 4 hours. We'll consult pulmonary, will admit. *DC/Admit/Observation/Transfer Diagnosis at time of Disposition: Asthma exacerbation Qualifiers: Asthma severity: mild Asthma persistence: unspecified Qualified Code(s): J45.901 - Unspecified asthma with (acute) exacerbation - Discharge Dispostion Condition at time of disposition: Fair Decision to Admit order: Yes - Referrals Referrals: Mohini Sanchez MD [Primary Care Provider] - - Patient Instructions - Post Discharge Activity - Attestations Physician Attestion: 11/12/18 10:26 The documentation was prepared by the jyotiibnallely under my direct supervision. I have reviewed the documentation which correctly represents the findings, medical decision-making and critical action taken by me.
[2018-11-12] MEDS ORDERED: SODIUM CHLORIDE 500 ML IV STA (10:43)
--- NOTE | 2018-11-12 10:51 | PN ---
Progress Note (short form) - Note Progress Note: PULMONARY CONSULTATION DICTATED 11/12/18 IMP MODERATE-SEVERE CHRONIC PERSISTENT ASTHMA WITH ACUTE EXACERBATION HTN DM ANXIETY ANEMIA PLAN IV STEROIDS INHALED BRONCHODILATORS O2 MONITOR PEAK FLOW ABX SERUM IGE LEVEL ,ALPHA-1 ANTI-TRYPSIN LEVEL OUTPATIENT DR BROWN Problem List - Problems (1) Asthma exacerbation Code(s): J45.901 - UNSPECIFIED ASTHMA WITH (ACUTE) EXACERBATION Qualifiers: Asthma severity: mild Asthma persistence: unspecified Qualified Code(s): J45.901 - Unspecified asthma with (acute) exacerbation (2) COPD exacerbation Code(s): J44.1 - CHRONIC OBSTRUCTIVE PULMONARY DISEASE W (ACUTE) EXACERBATION (3) Dyspnea Code(s): R06.00 - DYSPNEA, UNSPECIFIED (4) Hypercholesteremia Code(s): E78.0 - PURE HYPERCHOLESTEROLEMIA * DO NOT USE * (5) Hypertension Code(s): I10 - ESSENTIAL (PRIMARY) HYPERTENSION
--- NOTE | 2018-11-12 12:03 | HP ---
Admitting History and Physical - Primary Care Physician PCP: Mohini Sanchez - Admission Chief Complaint: SOB History of Present Illness: ER HISTORY \ - History of Present Illness Initial Comments: The patient is an 87 Y F, with PMH of asthma/COPD, HTN, anxiety, anemia, and DM , presents for asthma exacerbation for 1 month. Patient was admitted for this complaint last month, and was discharged 3 weeks ago with Zpack and an increasing dose of prednisone (recently increased to 40 2x a day 2 days ago). She notes no change in her symptoms since her discharge, and Dr. Sanchez advised she come to the ED for solumedrol. She endorses associated cough, which was productive of green sputum but is now white and bilateral LE edema (L>R). She was intubated once over 25 years ago, and her current peak flow is 200 ( highest was 300). She denies tobacco use, but notes many people in her building smoke. Denies fever, chills, diarrhea, chest pain, sudden weight loss. Patient notes she also has thrush, with associated burning sensation in the throat (on Nystatin). Allergies: Oral and IV Iodinated Contrast, tetracyclines, shellfish Surgical History: Breast biopsy, tubal ligation Social History: Former smoker (quit 25 years ago). PCP: Dr. Mohini Sanchez Pulm: Dr. Perea Pt examined in ER New patient from the office- I met her two days ago and she was SOB, asthma/ copd exacerbation-- gave her increased dose of prednisone amd Zpack and advised to go to ER if she felt worse. Pt did not improve with oupt steroid and antibiotics - needs inpatient admission for IV solumedrol, IV antibiotics History Source: Patient - Past Medical History Cardiovascular: Yes: HTN. No: AFIB Pulmonary: Yes: Asthma, COPD Heme/Onc: Yes: Anemia Psych: Yes: Anxiety Endocrine: Yes: Diabetes Mellitus (diet controlled , but she takes SSI and metformin when on steroids) - Past Surgical History Past Surgical History: Yes: Breast Biopsy, Tubal Ligation - Smoking History Smoking history: Never smoked Have you smoked in the past 12 months: No Aproximately how many cigarettes per day: 0 If you are a former smoker, when did you quit?: 1989 - Alcohol/Substance Use Hx Alcohol Use: No History of Substance Use: reports: None - Social History ADL: Independent History of Recent Travel: No Home Medications - Allergies Allergies/Adverse Reactions: Allergies Allergy/AdvReac Type Severity Reaction Status Date / Time Iodinated Contrast- Oral and Allergy Unknown Verified 04/28/18 10:04 IV Dye [IV Dye, Iodine Containing Contrast ] tetracycline [Tetracycline] Allergy Unknown Verified 04/28/18 10:04 shellfish derived Allergy Verified 04/28/18 10:04 - Home Medications Home Medications: Ambulatory Orders Arformoterol Tartrate [Brovana] 15 mcg IH BID 01/02/15 Albuterol 0.083% Nebulizer Delmi [Ventolin 0.083% Nebulizer Soln -] 1 neb NEB Q4H PRN #1 box 10/12/15 Albuterol Sulfate Inhaler - [Ventolin HFA Inhaler -] 1 - 2 inh PO QID PRN Insulin Aspart [Novolog Flexpen] 0 unit SQ ASDIR 04/28/18 Umeclidinium [place] [Incruse Ellipta] 1 puff IH DAILY 04/28/18 Atorvastatin Ca [Lipitor] 20 mg PO DAILY 10/11/18 Chlorthalidone 25 mg PO DAILY 10/11/18 Fluticasone/Vilanterol [Breo Ellipta 200-25 Mcg INH] 1 inh IH HS 10/11/18 Telmisartan [Micardis] 80 mg PO DAILY 10/11/18 Azithromycin 250 mg PO DAILY #5 tablet 10/17/18 Pantoprazole Sodium [Protonix -] 40 mg PO DAILY #30 tablet.ec 10/17/18 metFORMIN HCL [Glucophage -] 1,000 mg PO BID@0700,1630 #30 tablet 10/17/18 Azithromycin [Zithromax -] 250 mg PO DAILY 11/12/18 Beclomethasone Dipropionate [Qvar Redihaler] 10.6 gm IH DAILY 11/12/18 Nystatin 100,000 unit PO DAILY 11/12/18 predniSONE [Deltasone -] 40 mg PO BID 11/12/18 Family Disease History - Family Disease History Family Disease History: CA: Father (lung cancer ), Brother (lung cancer ), Son ( lymphoma ) Review of Systems - Review of Systems Constitutional: denies: Chills, Fever Respiratory: reports: Cough, SOB Physical Examination Vital Signs: Vital Signs Temperature 98.7 F 11/12/18 07:38 Pulse Rate 81 11/12/18 07:38 Respiratory Rate 16 11/12/18 07:38 Blood Pressure 125/56 L 11/12/18 07:38 O2 Sat by Pulse Oximetry (%) 99 11/12/18 08:14 Constitutional: Yes: No Distress, Calm Cardiovascular: Yes: Regular Rate and Rhythm Respiratory: Yes: Rhonchi Gastrointestinal: Yes: Normal Bowel Sounds, Soft. No: Tenderness Edema: Yes Edema: LLE: 2+, RLE: 2+ Labs: CBC, BMP 11/12/18 08:40 11/12/18 08:40 Imaging - Results Chest X-ray: Image Reviewed Problem List - Problems (1) Asthma exacerbation Code(s): J45.901 - UNSPECIFIED ASTHMA WITH (ACUTE) EXACERBATION Qualifiers: Asthma severity: mild Asthma persistence: unspecified Qualified Code(s): J45.901 - Unspecified asthma with (acute) exacerbation (2) Asthma exacerbation in COPD Code(s): J44.1 - CHRONIC OBSTRUCTIVE PULMONARY DISEASE W (ACUTE) EXACERBATION; J45.901 - UNSPECIFIED ASTHMA WITH (ACUTE) EXACERBATION (3) Diabetes Code(s): E11.9 - TYPE 2 DIABETES MELLITUS WITHOUT COMPLICATIONS (4) Diastolic CHF Code(s): I50.30 - UNSPECIFIED DIASTOLIC (CONGESTIVE) HEART FAILURE (5) Dyspnea Code(s): R06.00 - DYSPNEA, UNSPECIFIED Assessment/Plan PLAN IV solumedrol IV antibiotics Nebs scheduled and prn Pulmonary eval noted BGM control - she has steroid induced DM continue with meds Lovenox sc for DVT prophylaxis
[2018-11-12] MEDS ORDERED: metFORMIN HCL 500 MG TABLET (FP) ONE (13:33)
[2018-11-12] MEDS ORDERED: methylPREDNISolone NA SUCC 40 MG/1 ML VIAL ONE (13:34)
[2018-11-12 13:49] LABS: ANISOCYTOSIS 0; MACROCYTOSIS 0; PLATELET ESTIMATE NORMAL
[2018-11-12 13:58] LABS: BASO % 0.1 % (0-2.0); HEMATOCRIT 39.3 % (32.4-45.2); HEMOGLOBIN 12.6 GM/dL (10.7-15.3); MCH 27.9 pg (25.7-33.7); MCHC 31.9 g/dl (32.0-36.0); MEAN CELL VOLUME 87.5 fl (80-96); MEAN PLT VOLUME 9.5 fl (7.5-11.1); MONO % 3.2 % (3.8-10.2); NEUT % 92.7 % (42.8-82.8); PLATELET COUNT 245 K/MM3 (134-434); RBC 4.49 M/mm3 (3.60-5.2); RDW 15.6 % (11.6-15.6); WHITE BLOOD COUNT 12.9 K/mm3 (4.0-10.0)
[2018-11-12 14:27] LABS: ALBUMIN 3.6 g/dl (3.4-5.0); BILIRUBIN,TOTAL 0.3 mg/dL (0.2-1); BLOOD UREA NITROGEN 37.1 mg/dL (7-18); CALCIUM 8.9 mg/dL (8.5-10.1); POTASSIUM 4.4 mmol/L (3.5-5.1); TOT PROT 6.3 g/dl (6.4-8.2)
[2018-11-12 14:53] LABS: ANISOCYTOSIS 0; HELMET CELLS 0; HOWELL-JOLLY BODIES 0; MACROCYTOSIS 0; OVALOCYTE 0; PLATELET ESTIMATE NORMAL; ROULEAU 0; SICKELED CELLS 0; TARGET CELLS 0; TEAR DROP CELLS 0; TOXIC GRANULATION 0
[2018-11-12] MEDS ORDERED: INSULIN REGULAR HUMAN 100 UNITS/ML *VIAL SQ ONE (14:59)
[2018-11-12] MEDS ORDERED: INSULIN REGULAR HUMAN 100 UNITS/ML *VIAL ONE (15:38)
[2018-11-12] MEDS: methylPREDNISolone NA SUCC 40 MG/1 ML VIAL IVPUSH SCH ×2 (15:48→21:39)
[2018-11-12] MEDS: metFORMIN HCL 500 MG TABLET (FP) PO SCH (15:48)
--- NOTE | 2018-11-12 15:58 | CONS ---
DATE OF CONSULTATION: 11/12/2018 REFERRING PHYSICIAN: Mohini Sanchez MD The patient is an 78-year-old black female known to me from previous office visits as well as hospitalizations, with past medical history of chronic persistent asthma and multiple hospitalizations secondary to acute exacerbations, hypertension, anxiety, anemia, diabetes; remote history of smoking, quit greater than 25 years ago, admitted to [facility] complaining of increasing shortness of breath, cough, and bronchospasm. Patient was recently hospitalized about a month ago. At that time she was treated with inhaled bronchodilators and steroids with good clinical response. She was discharged home and was doing okay until approximately 2 weeks ago when she started noticing increasing shortness of breath and dyspnea on exertion and cough and wheezing. She was placed on increased dose of steroids with a taper and symptoms persisted. She went to see Dr. Sanchez today, at which time she was advised to go to the emergency room. Had complaint of a cough productive of green sputum, no hemoptysis. She also complains of increasing bilateral lower extremity edema. There is no history of recent travel. There is no history of DVT or PE in the past. She has a history of intubation once over 25 years ago. There is no history of occupational exposure to chemicals or fumes. She has history of smoking as stated before, quit greater than 25 years ago but currently states in her building people still smoke. PAST MEDICAL HISTORY: Includes asthma, COPD, hypertension, anxiety, anemia, diabetes. REVIEW OF SYSTEMS: Positive cough, positive shortness of breath, positive wheezing. No chest pain, no palpitations, no nausea, no vomiting. Positive mild lower extremity edema. SOCIAL HISTORY: No occupational exposures. History of smoking. PAST SURGICAL HISTORY: Includes breast biopsy and tubal ligation. MEDICATIONS: Medication prior to admission include albuterol, NovoLog, Incruse Ellipta, Lipitor, chlorthalidone, Breo Ellipta, Micardis, pantoprazole, Glucophage, Zithromax, and prednisone. Current medications include normal saline. PHYSICAL EXAMINATION: General: The patient is an elderly female, well developed, awake, alert, dyspneic, but in no acute distress. Vital Signs: She is afebrile. Heart rate is 81. O2 saturation is 99% on room air. Blood pressure is 125/56, and respiratory rate is 16. HEENT: Head is normocephalic, atraumatic. Neck: Supple. Heart: Regular S1, S2. Chest: Diffuse bilateral wheezes. Abdomen: Soft. Bowel sounds are positive. Extremities: No cyanosis. Trace bilateral lower extremity edema. LABORATORY: WBC is 14.7, hemoglobin of 12.6, hematocrit 38.7, with a platelet count of 244,000. Blood gas not performed. Chemistries: BUN 40, creatinine 1.1. Chest x-ray: No infiltrates, no effusions. IMPRESSION: 1. [id number] chronic persistent asthma with acute exacerbation. 2. Hypertension. 3. Diabetes. 4. Anxiety. 5. Anemia. PLAN: Continue IV steroids and Solu-Medrol 40 q.6, inhaled bronchodilators, supplemental O2, monitoring peak flow. Antibiotics, sputum for culture and sensitivity. Serum IgE level, [id number] level as outpatient, and sputum for eosinophils. EUGENIA BROWN M.D. [id number] MTDD
[2018-11-12] MEDS: INSULIN SLIDING SCALE (NOVOLOG) 1 VIAL SQ SCH ×2 (16:50→21:42)
[2018-11-12] MEDS: ALBUTEROL SO4 0.083% IH SOL 2.5 MG/3 ML VIAL.NEB. NEB PRN (16:58)
[2018-11-12] MEDS ORDERED: ATORVASTATIN CA 20 MG TABLET (FP) ONE (21:31)
[2018-11-12] MEDS ORDERED: HYDROCORTISONE SOD SUCCINATE 2 ML ONE (21:31)
[2018-11-12] MEDS: ATORVASTATIN CA 20 MG TABLET (FP) PO SCH (21:39)
[2018-11-12] MEDS ORDERED: INSULIN (NOVOLOG) ASPART 100 UNITS/ML 10ML VIAL ONE (21:41)
[2018-11-12] MEDS ORDERED: PATIENT'S OWN MEDICATION (NON-FORMULARY) (Fluticasone/Vilanterol [Breo Ellipta 200-25 Mcg IH SCH (22:00)
[2018-11-12] MEDS: ARFORMOTEROL TARTRATE 15 MCG/2 ML VIAL NEB SCH (22:19)
[2018-11-13] MEDS: methylPREDNISolone NA SUCC 40 MG/1 ML VIAL IVPUSH SCH ×4 (03:40→21:33)
[2018-11-13] MEDS: metFORMIN HCL 500 MG TABLET (FP) PO SCH ×2 (06:24→16:47)
[2018-11-13] MEDS: INSULIN SLIDING SCALE (NOVOLOG) 1 VIAL SQ SCH ×4 (06:25→21:45)
[2018-11-13] MEDS: ARFORMOTEROL TARTRATE 15 MCG/2 ML VIAL NEB SCH (08:35)
[2018-11-13] MEDS: ALBUTEROL SO4 0.083% IH SOL 2.5 MG/3 ML VIAL.NEB. NEB PRN (11:00)
[2018-11-13] MEDS: PANTOPRAZOLE 40 MG TABLET (FP) PO SCH (11:19)
[2018-11-13] MEDS: VALSARTAN 160 MG TABLET (UD) PO SCH (11:19)
[2018-11-13] MEDS: CHLORTHALIDONE 25 MG TABLET PO SCH (11:19)
[2018-11-13] MEDS ORDERED: FLUCONAZOLE 150 MG TABLET PO ONE (11:30)
--- NOTE | 2018-11-13 11:32 | PN ---
Progress Note (short form) - Note Progress Note: PULMONARY Still with shortness of breath, cough, wheezing, chest tightness. Vital Signs Period Temp Pulse Resp BP Sys/Stallings Pulse Ox Last 24 Hr 97.3 F-98.6 F 78-92 18-20 130-163/51-81 96-99 Gen: mildly tachypneic with speaking Heart: RRR Lung: bilateral rhonchi, wheezes Abd: soft, nontender Ext: no edema CBC, BMP 11/12/18 13:45 11/12/18 13:45 Active Medications Albuterol Sulfate (Ventolin 0.083% Nebulizer Soln -) 1 amp NEB Q4H PRN PRN Reason: SHORT OF BREATH/WHEEZING Last Admin: 11/12/18 16:58 Dose: 1 amp Arformoterol Tartrate (Brovana (Restricted To Pulmonology/Resp) -) 1 amp NEB RBID CORNELL Last Admin: 11/13/18 08:35 Dose: 1 amp Atorvastatin Calcium (Lipitor -) 20 mg PO HS CORNELL Last Admin: 11/12/18 21:39 Dose: 20 mg Chlorthalidone (Hygroton -) 25 mg PO DAILY CORNELL Last Admin: 11/13/18 11:19 Dose: 25 mg Levofloxacin (Levaquin 500 Mg Premixed Ivpb -) 500 mg in 100 mls @ 100 mls/hr IVPB DAILY CORNELL; Protocol Last Admin: 11/13/18 11:18 Dose: 100 mls/hr Insulin Aspart (Novolog Vial Sliding Scale -) 1 vial SQ ACHS CORNELL; Protocol Last Admin: 11/13/18 06:25 Dose: 4 unit Metformin HCl (Glucophage -) 1,000 mg PO BID@0700,1630 CORNELL Last Admin: 11/13/18 06:24 Dose: 1,000 mg Methylprednisolone Sodium Succinate (Solu-Medrol -) 60 mg IVPUSH Q6H-IV CORNELL Last Admin: 11/13/18 11:19 Dose: 60 mg Nystatin (Nystatin Oral Suspension -) 500,000 units PO TID CORNELL Pantoprazole Sodium (Protonix -) 40 mg PO DAILY CORNELL Last Admin: 11/13/18 11:19 Dose: 40 mg Valsartan (Diovan -) 320 mg PO DAILY CORNELL Last Admin: 11/13/18 11:19 Dose: 320 mg A/P Acute Asthma Exacerbation Moderate/Severe Persistent Asthma HTN DM Anxiety Anemia - continue medrol at current dose - inhaled bronchodilators standing and PRN - O2 to keep SpO2>90% - monitor peak flow - singulair - DVT prophylaxis
[2018-11-13] MEDS ORDERED: FUROSEMIDE 40 MG/4 ML INJECTABLE VIAL IVPUSH ONE (11:33)
[2018-11-13] MEDS: ALBUTEROL SO4 2.5/IPRATROPIUM 0.5 INH SOL 3 ML VIAL.NEB. NEB SCH ×3 (11:47→19:48)
[2018-11-13] MEDS ORDERED: INSULIN (NOVOLOG) ASPART 100 UNITS/ML 10ML VIAL ONE (11:52)
--- NOTE | 2018-11-13 11:59 | PN ---
Progress Note (short form) - Note Progress Note: still the same Vital Signs - 24 hr 11/12/18 11/12/18 11/12/18 13:29 16:54 20:39 Temperature 97.9 F 97.3 F L 97.6 F Pulse Rate Pulse Rate [ 92 H 78 84 Apical] Respiratory 18 Rate Blood Pressure Blood Pressure 163/81 153/72 143/51 L [Left Arm] O2 Sat by Pulse 96 99 98 Oximetry (%) 11/12/18 11/12/18 11/13/18 23:00 23:18 01:29 Temperature 97.8 F 98.5 F Pulse Rate 80 Pulse Rate [ 79 Apical] Respiratory 20 18 Rate Blood Pressure 148/66 Blood Pressure 144/76 [Left Arm] O2 Sat by Pulse 98 98 98 Oximetry (%) 11/13/18 07:13 Temperature 98.6 F Pulse Rate 84 Pulse Rate [ Apical] Respiratory 18 Rate Blood Pressure 130/79 Blood Pressure [Left Arm] O2 Sat by Pulse Oximetry (%) Current Medications Generic Name Dose Route Start Last Admin Trade Name Freq PRN Reason Stop Dose Admin Albuterol Sulfate 1 amp 11/12/18 12:04 11/13/18 11:00 Ventolin 0.083% Nebulizer Soln - NEB 1 amp Q4H PRN Administration SHORT OF BREATH/WHEEZING Albuterol/Ipratropium 1 amp 11/13/18 12:00 11/13/18 11:47 Duoneb - NEB Not Given RQID CORNELL Atorvastatin Calcium 20 mg 11/12/18 22:00 11/12/18 21:39 Lipitor - PO 20 mg HS CORNELL Administration Budesonide/Formoterol Fumarate 2 puff 11/13/18 11:45 Symbicort 160/4.5mcg - IH BID CORNELL Chlorthalidone 25 mg 11/13/18 10:00 11/13/18 11:19 [place]groton - PO 25 mg DAILY CORNELL Administration Enoxaparin Sodium 40 mg 11/14/18 10:00 Lovenox - SQ DAILY CORNELL Levofloxacin 500 mg in 100 mls @ 100 mls/hr 11/12/18 12:15 11/13/18 11:18 Levaquin 500 Mg Premixed Ivpb - IVPB 100 mls/hr DAILY CORNELL Administration Protocol Insulin Aspart 1 vial 11/12/18 16:30 11/13/18 11:54 Novolog Vial Sliding Scale - SQ 6 unit ACHS CORNELL Administration Protocol Metformin HCl 1,000 mg 11/12/18 16:30 11/13/18 06:24 Glucophage - PO 1,000 mg BID@0700,1630 CORNELL Administration Methylprednisolone Sodium Succinate 60 mg 11/12/18 15:00 11/13/18 11:19 Solu-Medrol - IVPUSH 60 mg Q6H-IV [facility]NELL Administration Montelukast Sodium 10 mg 11/13/18 22:00 Singulair - PO HS CORNE[facility] Nystatin 500,000 units 11/13/18 14:00 Nystatin Oral Suspension - PO TID CORNE[facility] Pantoprazole Sodium 40 mg 11/13/18 10:00 11/13/18 11:19 Protonix - PO 40 mg DAILY [facility] Administration Valsartan 320 mg 11/13/18 10:00 11/13/18 11:19 Diovan - PO 320 mg DAILY [facility] Administration Zolpidem Tartrate 5 mg 11/13/18 12:02 Ambien - PO HS PRN INSOMNIA Laboratory Results - last 24 hr 11/12/18 11/12/18 11/12/18 08:40 13:45 13:45 WBC 12.9 H RBC 4.49 Hgb 12.6 Hct 39.3 MCV 87.5 MCH 27.9 MCHC 31.9 L RDW 15.6 Plt Count 245 MPV 9.5 Absolute Neuts (auto) 12.0 H Neutrophils % 92.7 H D Neutrophils % (Manual) 74.7 90.0 H Band Neutrophils % 0.0 0.0 Lymphocytes % 4.0 L D Lymphocytes % (Manual) 18.2 D 4.0 L D Monocytes % 3.2 L Monocytes % (Manual) 6 4 Eosinophils % 0.0 D Eosinophils % (Manual) 0.0 0.0 Basophils % 0.1 Basophils % (Manual) 0.0 0.0 Myelocytes % (Man) 0 1 D Promyelocytes % (Man) 0 0 Blast Cells % (Manual) 0 0 Nucleated RBC % 0 0 Metamyelocytes 1 D 1 Hypochromia 0 0 Toxic Granulation 0 Dohle Bodies 0 Platelet Estimate Normal Normal Polychromasia 0 0 Poikilocytosis 0 0 Basophilic Stippling 0 Anisocytosis 0 0 Microcytosis 0 0 Macrocytosis 0 0 Spherocytes 0 Sickle Cells 0 Target Cells 0 Tear Drop Cells 0 Ovalocytes 0 Stomatocytes 0 Helmet Cells 0 [place] Bodies 0 [place] Rings 0 Fito Cells 0 Acanthocytes (Spur) 0 Rouleaux 0 Fragmented RBCs 0 Schistocytes 0 Sodium 133 L Potassium 4.4 Chloride 99 Carbon Dioxide 26 Anion Gap 9 BUN 37.1 H Creatinine 1.0 Est GFR (CKD-EPI)AfAm 62.49 Est GFR (CKD-EPI)NonAf 53.92 POC Glucometer Random Glucose 418 H* Calcium 8.9 Total Bilirubin 0.3 AST 11 L ALT 29 Alkaline Phosphatase 52 Total Protein 6.3 L Albumin 3.6 11/12/18 11/13/18 11/13/18 21:35 06:09 11:47 WBC RBC Hgb Hct MCV MCH MCHC RDW Plt Count MPV Absolute Neuts (auto) Neutrophils % Neutrophils % (Manual) Band Neutrophils % Lymphocytes % Lymphocytes % (Manual) Monocytes % Monocytes % (Manual) Eosinophils % Eosinophils % (Manual) Basophils % Basophils % (Manual) Myelocytes % (Man) Promyelocytes % (Man) Blast Cells % (Manual) Nucleated RBC % Metamyelocytes Hypochromia Toxic Granulation Dohle Bodies Platelet Estimate Polychromasia Poikilocytosis Basophilic Stippling Anisocytosis Microcytosis Macrocytosis Spherocytes Sickle Cells Target Cells Tear Drop Cells Ovalocytes Stomatocytes Helmet Cells [place] Bodies [place] Rings Fito Cells Acanthocytes (Spur) Rouleaux Fragmented RBCs Schistocytes Sodium Potassium Chloride Carbon Dioxide Anion Gap BUN Creatinine Est GFR (CKD-EPI)AfAm Est GFR (CKD-EPI)NonAf POC Glucometer 354 235 269 Random Glucose Calcium Total Bilirubin AST ALT Alkaline Phosphatase Total Protein Albumin S1 S2 RRR Lungs diffuse ronchi+ Abd - soft, NT edema 2+ PLAN IV lasix Cardiology eval continue current dose solumedrol IV Levaquin continue with meds OOB Problem List - Problems (1) Asthma exacerbation Code(s): J45.901 - UNSPECIFIED ASTHMA WITH (ACUTE) EXACERBATION Qualifiers: Asthma severity: mild Asthma persistence: unspecified Qualified Code(s): J45.901 - Unspecified asthma with (acute) exacerbation (2) Asthma exacerbation in COPD Code(s): J44.1 - CHRONIC OBSTRUCTIVE PULMONARY DISEASE W (ACUTE) EXACERBATION; J45.901 - UNSPECIFIED ASTHMA WITH (ACUTE) EXACERBATION (3) COPD exacerbation Code(s): J44.1 - CHRONIC OBSTRUCTIVE PULMONARY DISEASE W (ACUTE) EXACERBATION (4) Diabetes Code(s): E11.9 - TYPE 2 DIABETES MELLITUS WITHOUT COMPLICATIONS (5) Diastolic CHF Code(s): I50.30 - UNSPECIFIED DIASTOLIC (CONGESTIVE) HEART FAILURE
[2018-11-13] MEDS: guaiFENesin 600 MG TABLET.ER (FP) PO SCH ×2 (12:42→21:34)
[2018-11-13] MEDS: BUDESONIDE/FORMETEROL FUMARATE 160/4.5 mcg INHALER IH SCH ×3 (14:48→23:40)
[2018-11-13] MEDS: NYSTATIN 500,000 UNITS/5 ML SUSPENSION PO SCH ×2 (16:47→21:34)
--- NOTE | 2018-11-13 16:48 | CON.CARD ---
Consult Consult Specialty:: cardiology Reason for Consultation:: SOB; hx CHF - History of Present Illness Chief Complaint: A&OX3;worried about why she is so frequently having trouble breathing lately History of Present Illness: The patient is an 87 Y black woman with PMH of asthma/COPD, diastolic CHF, DM, HTN, anxiety, anemia, and obesity, presents for "asthma exacerbation" for 1 month. Patient was admitted for this complaint last month, and was discharged 3 weeks ago with Zpack and an increasing dose of prednisone (recently increased to 40 2x a day 2 days ago). She notes no change in her symptoms since her discharge, and Dr. Sanchez advised she come to the ED for solumedrol. She endorses associated cough, which was productive of green sputum but is now white and bilateral LE edema (L>R). She was intubated once over 25 years ago, and her current peak flow is 200 (highest was 300). She denies tobacco use, but notes many people in her building smoke. Denies fever, chills, diarrhea, chest pain, sudden weight loss. Patient notes she also has thrush, with associated burning sensation in the throat (on Nystatin). Pt likes to "stay in shape"; she tries to walk 10,000-20,000 steps a day. Allergies: Oral and IV Iodinated Contrast, tetracyclines, shellfish Surgical History: Breast biopsy, tubal ligation Social History: Former smoker (quit 25 years ago). PCP: Dr. Mohini Sanchez Pulm: Dr. Perea - History Source History Provided By: Patient, Medical Record Limitations to Obtaining History: No Limitations - Past Medical History Cardio/Vascular: Yes: HTN. No: AFIB Pulmonary: Yes: Asthma, COPD Renal/: No: Renal Failure Reproductive: Yes: Postmenopausal ...: No Heme/Onc: No: Anemia Psych: Yes: Anxiety Endocrine: Yes: Diabetes Mellitus (diet controlled , but she takes SSI and metformin when on steroids) - Past Surgical History Past Surgical History: Yes: Breast Biopsy, Tubal Ligation - Alcohol/Substance Use Hx Alcohol Use: No History of Substance Use: reports: None - Smoking History Smoking history: Never smoked Have you smoked in the past 12 months: No Aproximately how many cigarettes per day: 0 If you are a former smoker, when did you quit?: 1989 - Social History ADL: Independent History of Recent Travel: No Home Medications - Allergies Allergies/Adverse Reactions: Allergies Allergy/AdvReac Type Severity Reaction Status Date / Time Iodinated Contrast- Oral and Allergy Unknown Verified 04/28/18 10:04 IV Dye [IV Dye, Iodine Containing Contrast ] tetracycline [Tetracycline] Allergy Unknown Verified 04/28/18 10:04 shellfish derived Allergy Verified 04/28/18 10:04 - Home Medications Home Medications: Ambulatory Orders Arformoterol Tartrate [Brovana] 15 mcg IH BID 01/02/15 Albuterol 0.083% Nebulizer Delmi [Ventolin 0.083% Nebulizer Soln -] 1 neb NEB Q4H PRN #1 box 10/12/15 Albuterol Sulfate Inhaler - [Ventolin HFA Inhaler -] 1 - 2 inh PO QID PRN Insulin Aspart [Novolog Flexpen] 0 unit SQ ASDIR 04/28/18 Umeclidinium Anthony [Incruse Ellipta] 1 puff IH DAILY 04/28/18 Atorvastatin Ca [Lipitor] 20 mg PO DAILY 10/11/18 Chlorthalidone 25 mg PO DAILY 10/11/18 Fluticasone/Vilanterol [Breo Ellipta 200-25 Mcg INH] 1 inh IH HS 10/11/18 Telmisartan [Micardis] 80 mg PO DAILY 10/11/18 Azithromycin 250 mg PO DAILY #5 tablet 10/17/18 Pantoprazole Sodium [Protonix -] 40 mg PO DAILY #30 tablet.ec 10/17/18 metFORMIN HCL [Glucophage -] 1,000 mg PO BID@0700,1630 #30 tablet 10/17/18 Azithromycin [Zithromax -] 250 mg PO DAILY 11/12/18 Beclomethasone Dipropionate [Qvar Redihaler] 10.6 gm IH DAILY 11/12/18 Nystatin 100,000 unit PO DAILY 11/12/18 predniSONE [Deltasone -] 40 mg PO BID 11/12/18 Family Disease History - Family Disease History Family Disease History: CA: Father (lung cancer ), Brother (lung cancer ), Son ( lymphoma ) Review of Systems - Review of Systems Constitutional: reports: No Symptoms Eyes: reports: No Symptoms HENT: reports: Nasal Congestion Neck: reports: No Symptoms Cardiovascular: reports: No Symptoms Respiratory: reports: SOB, Wheezing Gastrointestinal: reports: No Symptoms Genitourinary: reports: No Symptoms Breasts: reports: No Symptoms Reported Integumentary: reports: No Symptoms Neurological: reports: No Symptoms Endocrine: reports: No Symptoms Hematology/Lymphatic: reports: No Symptoms Psychiatric: reports: No Symptoms - Risk Factors Known Risk Factors: Yes: Age, Hypercholesterolemia, Hypertension Vital Signs: Vital Signs Temperature 98.6 F 11/13/18 07:13 Pulse Rate 84 11/13/18 07:13 Respiratory Rate 20 11/13/18 09:00 Blood Pressure 130/79 11/13/18 07:13 O2 Sat by Pulse Oximetry (%) 98 11/13/18 09:00 Constitutional: Yes: Anxious Eyes: Yes: WNL - Other Data Labs, Other Data: CBC, BMP 11/12/18 13:45 11/12/18 13:45 Imaging - Results Chest X-ray: Image Reviewed EKG: Image Reviewed Problem List - Problems (1) Asthma exacerbation in COPD Assessment/Plan: F/u with pulmonolgist Bronchodilators; steroids, O2. Code(s): J44.1 - CHRONIC OBSTRUCTIVE PULMONARY DISEASE W (ACUTE) EXACERBATION; J45.901 - UNSPECIFIED ASTHMA WITH (ACUTE) EXACERBATION (2) Diabetes Code(s): E11.9 - TYPE 2 DIABETES MELLITUS WITHOUT COMPLICATIONS (3) Diastolic CHF Assessment/Plan: On valsartan and chlorthalideon. F/u BUN/Cr, electrolytes, daily weight, Is and Os. F?u prior workup for coronary arteries (stress MIBI). Code(s): I50.30 - UNSPECIFIED DIASTOLIC (CONGESTIVE) HEART FAILURE (4) Hypercholesteremia Assessment/Plan: Elevated HDL (123 mg/dl); LDL and triglycerides WNL. On atorvastatin 20 mg/d. Code(s): E78.0 - PURE HYPERCHOLESTEROLEMIA * DO NOT USE * (5) Hypertension Assessment/Plan: On Diovan and chlorthalidone. Code(s): I10 - ESSENTIAL (PRIMARY) HYPERTENSION (6) Obesity (BMI 30.0-34.9) Code(s): E66.9 - OBESITY, UNSPECIFIED
[2018-11-13] MEDS: ATORVASTATIN CA 20 MG TABLET (FP) PO SCH (21:34)
[2018-11-13] MEDS: MONTELUKAST NA 10 MG TABLET PO SCH (21:34)
[2018-11-13] MEDS: INSULIN (LEVEMIR) 100 UNITS/ML UNITS SQ SCH (21:45)
[2018-11-13] MEDS: ZOLPIDEM TARTRATE 5 MG TABLET PO PRN (23:19)
[2018-11-14] MEDS: methylPREDNISolone NA SUCC 40 MG/1 ML VIAL IVPUSH SCH ×3 (02:41→16:56)
[2018-11-14] MEDS: NYSTATIN 500,000 UNITS/5 ML SUSPENSION PO SCH ×3 (06:14→21:11)
[2018-11-14] MEDS: metFORMIN HCL 500 MG TABLET (FP) PO SCH ×2 (06:14→16:55)
[2018-11-14] MEDS: INSULIN SLIDING SCALE (NOVOLOG) 1 VIAL SQ SCH ×4 (06:15→21:11)
[2018-11-14] MEDS: ALBUTEROL SO4 2.5/IPRATROPIUM 0.5 INH SOL 3 ML VIAL.NEB. NEB SCH ×4 (07:34→20:10)
[2018-11-14] MEDS ORDERED: PT OWN MED DRAWER 7, Y5N ONE (09:47)
[2018-11-14] MEDS: VALSARTAN 160 MG TABLET (UD) PO SCH (09:51)
[2018-11-14] MEDS: CHLORTHALIDONE 25 MG TABLET PO SCH (09:51)
[2018-11-14] MEDS: guaiFENesin 600 MG TABLET.ER (FP) PO SCH ×2 (09:51→21:11)
[2018-11-14] MEDS: PANTOPRAZOLE 40 MG TABLET (FP) PO SCH (09:51)
[2018-11-14] MEDS: BUDESONIDE/FORMETEROL FUMARATE 160/4.5 mcg INHALER IH SCH ×2 (09:52→21:11)
[2018-11-14] MEDS: ENOXAPARIN NA (PORCINE) 40 MG/0.4 ML DISP.SYRIN SQ SCH (09:52)
--- NOTE | 2018-11-14 10:53 | PN ---
Progress Note (short form) - Note Progress Note: pt seen/ examined chart reviewed sitting in chair still feels same Vital Signs Temp 97.6 F 11/14/18 06:00 Pulse 84 11/14/18 06:00 Resp 16 11/14/18 06:00 BP 163/72 11/14/18 06:00 Pulse Ox 98 11/13/18 21:00 Intake & Output 11/13/18 11/13/18 11/14/18 11:59 23:59 11:59 Intake Total 425 Balance 425 Weight 165 lb 161 lb 3.2 oz Intake: IV 25 SL 25 IVPB 100 Oral 300 Other: Voiding Method Toilet Toilet Bowel Movement No Height 4 ft 11 in Body Mass Index (BMI) 33.3 Weight Measurement Method Built in Bedscale Built in Bedscale Active Medications Albuterol Sulfate (Ventolin 0.083% Nebulizer Soln -) 1 amp NEB Q4H PRN PRN Reason: SHORT OF BREATH/WHEEZING Last Admin: 11/13/18 11:00 Dose: 1 amp Albuterol/Ipratropium (Duoneb -) 1 amp NEB RQID [facility] Last Admin: 11/14/18 07:34 Dose: 1 amp Atorvastatin Calcium (Lipitor -) 20 mg PO HS [facility] Last Admin: 11/13/18 21:34 Dose: 20 mg Budesonide/Formoterol Fumarate (Symbicort 160/4.5mcg -) 2 puff IH BID [facility] Last Admin: 11/14/18 09:52 Dose: 2 puff Chlorthalidone (Hygroton -) 25 mg PO DAILY [facility] Last Admin: 11/14/18 09:51 Dose: 25 mg Enoxaparin Sodium (Lovenox -) 40 mg SQ DAILY [facility] Last Admin: 11/14/18 09:52 Dose: 40 mg Guaifenesin (Mucinex -) 600 mg PO BID [facility] Last Admin: 11/14/18 09:51 Dose: 600 mg Levofloxacin (Levaquin 500 Mg Premixed Ivpb -) 500 mg in 100 mls @ 100 mls/hr IVPB DAILY [facility]; Protocol Last Admin: 11/14/18 09:51 Dose: 100 mls/hr Insulin Aspart (Novolog Vial Sliding Scale -) 1 vial SQ ACHS [facility]; Protocol Last Admin: 11/14/18 06:15 Dose: 2 unit Insulin Detemir (Levemir Vial) 10 units SQ HS [facility] Last Admin: 11/13/18 21:45 Dose: 10 units Metformin HCl (Glucophage -) 1,000 mg PO BID@0700,1630 [facility] Last Admin: 11/14/18 06:14 Dose: 1,000 mg Methylprednisolone Sodium Succinate (Solu-Medrol -) 60 mg IVPUSH Q6H-IV [facility] Last Admin: 11/14/18 08:49 Dose: 60 mg Montelukast Sodium (Singulair -) 10 mg PO HS [facility] Last Admin: 11/13/18 21:34 Dose: 10 mg Nystatin (Nystatin Oral Suspension -) 500,000 units PO TID [facility] Last Admin: 11/14/18 06:14 Dose: 500,000 units Pantoprazole Sodium (Protonix -) 40 mg PO DAILY [facility] Last Admin: 11/14/18 09:51 Dose: 40 mg Valsartan (Diovan -) 320 mg PO DAILY [facility] Last Admin: 11/14/18 09:51 Dose: 320 mg Zolpidem Tartrate (Ambien -) 5 mg PO HS PRN PRN Reason: INSOMNIA Last Admin: 11/13/18 23:19 Dose: 5 mg cxr - reviewed Physical Exam S1 S2 RRR Lungs diffuse ronchi+ Abd - soft, NT edema 2+ PLAN IV lasix Cardiology eval noted continue current dose solumedrol IV Levaquin continue with meds OOB add amlodipine Problem List - Problems (1) Asthma exacerbation Code(s): J45.901 - UNSPECIFIED ASTHMA WITH (ACUTE) EXACERBATION Qualifiers: Asthma severity: mild Asthma persistence: unspecified Qualified Code(s): J45.901 - Unspecified asthma with (acute) exacerbation (2) Asthma exacerbation in COPD Code(s): J44.1 - CHRONIC OBSTRUCTIVE PULMONARY DISEASE W (ACUTE) EXACERBATION; J45.901 - UNSPECIFIED ASTHMA WITH (ACUTE) EXACERBATION (3) COPD exacerbation Code(s): J44.1 - CHRONIC OBSTRUCTIVE PULMONARY DISEASE W (ACUTE) EXACERBATION (4) Diabetes Code(s): E11.9 - TYPE 2 DIABETES MELLITUS WITHOUT COMPLICATIONS (5) Diastolic CHF Code(s): I50.30 - UNSPECIFIED DIASTOLIC (CONGESTIVE) HEART FAILURE
[2018-11-14] MEDS: amLODIPine BESYLATE 5 MG TABLET (FP) PO SCH (11:47)
--- NOTE | 2018-11-14 14:45 | PN ---
Progress Note, Physician History of Present Illness: PULMONARY ALERT,OOB-CHAIR,LESS DYSPNEIC,+ COUGH - Current Medication List Current Medications: Active Medications Albuterol Sulfate (Ventolin 0.083% Nebulizer Soln -) 1 amp NEB Q4H PRN PRN Reason: SHORT OF BREATH/WHEEZING Last Admin: 11/13/18 11:00 Dose: 1 amp Albuterol/Ipratropium (Duoneb -) 1 amp NEB RQID [facility] Last Admin: 11/14/18 13:00 Dose: 1 amp Amlodipine Besylate (Norvasc -) 5 mg PO DAILY [facility] Last Admin: 11/14/18 11:47 Dose: 5 mg Atorvastatin Calcium (Lipitor -) 20 mg PO HS [facility] Last Admin: 11/13/18 21:34 Dose: 20 mg Budesonide/Formoterol Fumarate (Symbicort 160/4.5mcg -) 2 puff IH BID [facility] Last Admin: 11/14/18 09:52 Dose: 2 puff Chlorthalidone (Hygroton -) 25 mg PO DAILY [facility] Last Admin: 11/14/18 09:51 Dose: 25 mg Enoxaparin Sodium (Lovenox -) 40 mg SQ DAILY [facility] Last Admin: 11/14/18 09:52 Dose: 40 mg Guaifenesin (Mucinex -) 600 mg PO BID [facility] Last Admin: 11/14/18 09:51 Dose: 600 mg Levofloxacin (Levaquin 500 Mg Premixed Ivpb -) 500 mg in 100 mls @ 100 mls/hr IVPB DAILY [facility]; Protocol Last Admin: 11/14/18 09:51 Dose: 100 mls/hr Insulin Aspart (Novolog Vial Sliding Scale -) 1 vial SQ ACHS [facility]; Protocol Last Admin: 11/14/18 11:46 Dose: 4 unit Insulin Detemir (Levemir Vial) 10 units SQ HS [facility] Last Admin: 11/13/18 21:45 Dose: 10 units Metformin HCl (Glucophage -) 1,000 mg PO BID@0700,1630 [facility] Last Admin: 11/14/18 06:14 Dose: 1,000 mg Methylprednisolone Sodium Succinate (Solu-Medrol -) 60 mg IVPUSH Q6H-IV [facility] Last Admin: 11/14/18 08:49 Dose: 60 mg Montelukast Sodium (Singulair -) 10 mg PO [facility] Last Admin: 11/13/18 21:34 Dose: 10 mg Nystatin (Nystatin Oral Suspension -) 500,000 units PO TID [facility] Last Admin: 11/14/18 06:14 Dose: 500,000 units Pantoprazole Sodium (Protonix -) 40 mg PO DAILY [facility] Last Admin: 11/14/18 09:51 Dose: 40 mg Valsartan (Diovan -) 320 mg PO DAILY [facility] Last Admin: 11/14/18 09:51 Dose: 320 mg Zolpidem Tartrate (Ambien -) 5 mg PO HS PRN PRN Reason: INSOMNIA Last Admin: 11/13/18 23:19 Dose: 5 mg - Objective Vital Signs: Vital Signs Temperature 97.6 F 11/14/18 06:00 Pulse Rate 84 11/14/18 06:00 Respiratory Rate 16 11/14/18 06:00 Blood Pressure 163/72 11/14/18 06:00 O2 Sat by Pulse Oximetry (%) 97 11/14/18 09:00 Constitutional: Yes: Well Nourished, Calm Eyes: Yes: WNL HENT: Yes: WNL Neck: Yes: WNL Cardiovascular: Yes: Regular Rate and Rhythm, S1, S2 Respiratory: Yes: Wheezes (JOSE WHEEZES) Gastrointestinal: Yes: Normal Bowel Sounds, Soft Extremities: Yes: WNL Edema: Yes Labs: CBC, BMP Problem List - Problems (1) Asthma exacerbation Code(s): J45.901 - UNSPECIFIED ASTHMA WITH (ACUTE) EXACERBATION Qualifiers: Asthma severity: mild Asthma persistence: unspecified Qualified Code(s): J45.901 - Unspecified asthma with (acute) exacerbation (2) COPD exacerbation Code(s): J44.1 - CHRONIC OBSTRUCTIVE PULMONARY DISEASE W (ACUTE) EXACERBATION (3) Dyspnea Code(s): R06.00 - DYSPNEA, UNSPECIFIED (4) Hypercholesteremia Code(s): E78.0 - PURE HYPERCHOLESTEROLEMIA * DO NOT USE * (5) Hypertension Code(s): I10 - ESSENTIAL (PRIMARY) HYPERTENSION Assessment/Plan IMP MODERATE-SEVERE CHRONIC PERSISTENT ASTHMA WITH ACUTE EXACERBATION HTN DM ANXIETY ANEMIA PLAN CONTINUE IV STEROIDS WILL START TAPER INHALED BRONCHODILATORS O2 MONITOR PEAK FLOW ABX SERUM IGE LEVEL ,ALPHA-1 ANTI-TRYPSIN LEVEL OUTPATIENT DR BROWN Problem List - Problems (1) Asthma exacerbation Code(s): J45.901 - UNSPECIFIED ASTHMA WITH (ACUTE) EXACERBATION Qualifiers: Asthma severity: mild Asthma persistence: unspecified Qualified Code(s): J45.901 - Unspecified asthma with (acute) exacerbation (2) COPD exacerbation Code(s): J44.1 - CHRONIC OBSTRUCTIVE PULMONARY DISEASE W (ACUTE) EXACERBATION (3) Dyspnea Code(s): R06.00 - DYSPNEA, UNSPECIFIED (4) Hypercholesteremia Code(s): E78.0 - PURE HYPERCHOLESTEROLEMIA * DO NOT USE *
[2018-11-14] MEDS ORDERED: INSULIN (NOVOLOG) ASPART 100 UNITS/ML 10ML VIAL ONE ×2 (16:46→20:48)
[2018-11-14] MEDS: MONTELUKAST NA 10 MG TABLET PO SCH (21:11)
[2018-11-14] MEDS: INSULIN (LEVEMIR) 100 UNITS/ML UNITS SQ SCH (21:11)
[2018-11-14] MEDS: ATORVASTATIN CA 20 MG TABLET (FP) PO SCH (21:11)
[2018-11-14] MEDS: ZOLPIDEM TARTRATE 5 MG TABLET PO PRN (23:09)
[2018-11-15] MEDS: methylPREDNISolone NA SUCC 40 MG/1 ML VIAL IVPUSH SCH ×4 (02:10→22:01)
[2018-11-15] MEDS: INSULIN SLIDING SCALE (NOVOLOG) 1 VIAL SQ SCH ×4 (06:14→22:00)
[2018-11-15] MEDS: metFORMIN HCL 500 MG TABLET (FP) PO SCH ×2 (06:14→17:07)
[2018-11-15] MEDS: NYSTATIN 500,000 UNITS/5 ML SUSPENSION PO SCH ×3 (06:14→22:00)
[2018-11-15] MEDS: ALBUTEROL SO4 2.5/IPRATROPIUM 0.5 INH SOL 3 ML VIAL.NEB. NEB SCH ×4 (07:48→20:50)
[2018-11-15] MEDS ORDERED: PT OWN MED DRAWER 7, Y5N ONE (09:54)
[2018-11-15] MEDS: ENOXAPARIN NA (PORCINE) 40 MG/0.4 ML DISP.SYRIN SQ SCH (09:56)
[2018-11-15] MEDS: CHLORTHALIDONE 25 MG TABLET PO SCH (09:56)
[2018-11-15] MEDS: PANTOPRAZOLE 40 MG TABLET (FP) PO SCH (09:56)
[2018-11-15] MEDS: VALSARTAN 160 MG TABLET (UD) PO SCH (09:56)
[2018-11-15] MEDS: guaiFENesin 600 MG TABLET.ER (FP) PO SCH ×2 (09:56→22:00)
[2018-11-15] MEDS: amLODIPine BESYLATE 5 MG TABLET (FP) PO SCH (09:56)
[2018-11-15] MEDS: BUDESONIDE/FORMETEROL FUMARATE 160/4.5 mcg INHALER IH SCH ×2 (09:59→22:08)
--- NOTE | 2018-11-15 12:53 | PN ---
Progress Note (short form) - Note Progress Note: feels the same vitals and labs noted no fever S1 S2 RRR Lungs ronchi+ Abd - soft, NT edema none PLAN current dose solumedrol nebs continue with meds lasix prn iv antibiotics Problem List - Problems (1) Asthma exacerbation Code(s): J45.901 - UNSPECIFIED ASTHMA WITH (ACUTE) EXACERBATION Qualifiers: Asthma severity: mild Asthma persistence: unspecified Qualified Code(s): J45.901 - Unspecified asthma with (acute) exacerbation (2) Asthma exacerbation in COPD Code(s): J44.1 - CHRONIC OBSTRUCTIVE PULMONARY DISEASE W (ACUTE) EXACERBATION; J45.901 - UNSPECIFIED ASTHMA WITH (ACUTE) EXACERBATION (3) COPD exacerbation Code(s): J44.1 - CHRONIC OBSTRUCTIVE PULMONARY DISEASE W (ACUTE) EXACERBATION (4) Diabetes Code(s): E11.9 - TYPE 2 DIABETES MELLITUS WITHOUT COMPLICATIONS (5) Diastolic CHF Code(s): I50.30 - UNSPECIFIED DIASTOLIC (CONGESTIVE) HEART FAILURE
--- NOTE | 2018-11-15 13:04 | PN ---
Progress Note (short form) - Note Progress Note: OOB to chair. Still with audible wheeze. PEF : 200 (best she feels is around 250?) Intake & Output 11/12/18 11/13/18 11/14/18 11/15/18 23:59 23:59 23:59 23:59 Intake Total 425 400 780 Balance 425 400 780 Weight 165 lb 165 lb 161 lb 3.2 oz 160 lb Last Vital Signs Temp Pulse Resp BP Pulse Ox 98.4 F 91 H 20 135/66 96 11/15/18 09:33 11/15/18 09:33 11/15/18 09:33 11/15/18 09:33 11/14/18 21:00 Active Medications Albuterol Sulfate (Ventolin 0.083% Nebulizer Soln -) 1 amp NEB Q4H PRN PRN Reason: SHORT OF BREATH/WHEEZING Last Admin: 11/13/18 11:00 Dose: 1 amp Albuterol/Ipratropium (Duoneb -) 1 amp NEB RQID [facility] Last Admin: 11/15/18 11:28 Dose: 1 amp Amlodipine Besylate (Norvasc -) 5 mg PO DAILY [facility] Last Admin: 11/15/18 09:56 Dose: 5 mg Atorvastatin Calcium (Lipitor -) 20 mg PO HS [facility] Last Admin: 11/14/18 21:11 Dose: 20 mg Budesonide/Formoterol Fumarate (Symbicort 160/4.5mcg -) 2 puff IH BID [facility] Last Admin: 11/15/18 09:59 Dose: 2 puff Chlorthalidone (Hygroton -) 25 mg PO DAILY [facility] Last Admin: 11/15/18 09:56 Dose: 25 mg Enoxaparin Sodium (Lovenox -) 40 mg SQ DAILY [facility] Last Admin: 11/15/18 09:56 Dose: 40 mg Guaifenesin (Mucinex -) 600 mg PO BID [facility] Last Admin: 11/15/18 09:56 Dose: 600 mg Insulin Aspart (Novolog Vial Sliding Scale -) 1 vial SQ [facility]; Protocol Last Admin: 11/15/18 11:46 Dose: 4 unit Insulin Detemir (Levemir Vial) 10 units SQ [facility] Last Admin: 11/14/18 21:11 Dose: 10 units Metformin HCl (Glucophage -) 1,000 mg PO BID@0700,1630 [facility] Last Admin: 11/15/18 06:14 Dose: 1,000 mg Methylprednisolone Sodium Succinate (Solu-Medrol -) 60 mg IVPUSH TID [facility] Montelukast Sodium (Singulair -) 10 mg PO HS [facility] Last Admin: 11/14/18 21:11 Dose: 10 mg Nystatin (Nystatin Oral Suspension -) 500,000 units PO TID [facility] Last Admin: 11/15/18 06:14 Dose: 500,000 units Pantoprazole Sodium (Protonix -) 40 mg PO DAILY [facility] Last Admin: 11/15/18 09:56 Dose: 40 mg Valsartan (Diovan -) 320 mg PO DAILY [facility] Last Admin: 11/15/18 09:56 Dose: 320 mg Zolpidem Tartrate (Ambien -) 5 mg PO HS PRN PRN Reason: INSOMNIA Last Admin: 11/14/18 23:09 Dose: 5 mg Constitutional: Yes: NAD Eyes: Yes: WNL HENT: Yes: WNL Neck: Yes: WNL Cardiovascular: Yes: Regular Rate and Rhythm, S1, S2 Respiratory: Yes: Bilateral Expiratory Wheezes Gastrointestinal: Yes: Normal Bowel Sounds, Soft Extremities: Yes: WNL Edema: Yes Labs: Laboratory Results - last 24 hr 11/14/18 11/14/18 11/15/18 16:51 20:42 05:58 POC Glucometer 271 342 274 11/15/18 11:28 POC Glucometer 247 Problem List - Problems (1) Asthma exacerbation Code(s): J45.901 - UNSPECIFIED ASTHMA WITH (ACUTE) EXACERBATION Qualifiers: Asthma severity: mild Asthma persistence: unspecified Qualified Code(s): J45.901 - Unspecified asthma with (acute) exacerbation (2) COPD exacerbation Code(s): J44.1 - CHRONIC OBSTRUCTIVE PULMONARY DISEASE W (ACUTE) EXACERBATION (3) Dyspnea Code(s): R06.00 - DYSPNEA, UNSPECIFIED (4) Hypercholesteremia Code(s): E78.0 - PURE HYPERCHOLESTEROLEMIA * DO NOT USE * (5) Hypertension Code(s): I10 - ESSENTIAL (PRIMARY) HYPERTENSION Assessment/Plan IMP MODERATE-SEVERE CHRONIC PERSISTENT ASTHMA WITH ACUTE EXACERBATION HTN DM ANXIETY ANEMIA PLAN CONTINUE IV STEROIDS AT THE SAME DOSE INHALED BRONCHODILATORS O2 MONITOR PEAK FLOW ABX SERUM IGE LEVEL ,ALPHA-1 ANTI-TRYPSIN LEVEL OUTPATIENT DR ARMAS
[2018-11-15] MEDS ORDERED: INSULIN (NOVOLOG) ASPART 100 UNITS/ML 10ML VIAL ONE (17:11)
[2018-11-15] MEDS: MONTELUKAST NA 10 MG TABLET PO SCH (22:00)
[2018-11-15] MEDS: INSULIN (LEVEMIR) 100 UNITS/ML UNITS SQ SCH (22:00)
[2018-11-15] MEDS: ATORVASTATIN CA 20 MG TABLET (FP) PO SCH (22:00)
[2018-11-15] MEDS: ZOLPIDEM TARTRATE 5 MG TABLET PO PRN (23:05)
[2018-11-16] MEDS: NYSTATIN 500,000 UNITS/5 ML SUSPENSION PO SCH ×3 (06:21→22:29)
[2018-11-16] MEDS: INSULIN SLIDING SCALE (NOVOLOG) 1 VIAL SQ SCH ×4 (06:21→22:30)
[2018-11-16] MEDS: methylPREDNISolone NA SUCC 40 MG/1 ML VIAL IVPUSH SCH ×3 (06:22→22:29)
[2018-11-16] MEDS: metFORMIN HCL 500 MG TABLET (FP) PO SCH ×2 (06:24→16:47)
[2018-11-16] MEDS: ALBUTEROL SO4 2.5/IPRATROPIUM 0.5 INH SOL 3 ML VIAL.NEB. NEB SCH ×4 (07:33→21:27)
[2018-11-16] MEDS ORDERED: PT OWN MED DRAWER 7, Y5N ONE ×2 (10:41→23:26)
[2018-11-16] MEDS: VALSARTAN 160 MG TABLET (UD) PO SCH (10:43)
[2018-11-16] MEDS: ENOXAPARIN NA (PORCINE) 40 MG/0.4 ML DISP.SYRIN SQ SCH (10:43)
[2018-11-16] MEDS: PANTOPRAZOLE 40 MG TABLET (FP) PO SCH (10:43)
[2018-11-16] MEDS: guaiFENesin 600 MG TABLET.ER (FP) PO SCH ×2 (10:43→22:29)
[2018-11-16] MEDS: amLODIPine BESYLATE 5 MG TABLET (FP) PO SCH (10:43)
[2018-11-16] MEDS: CHLORTHALIDONE 25 MG TABLET PO SCH (10:43)
[2018-11-16] MEDS: BUDESONIDE/FORMETEROL FUMARATE 160/4.5 mcg INHALER IH SCH ×2 (10:47→22:29)
--- NOTE | 2018-11-16 11:52 | PN ---
Progress Note (short form) - Note Progress Note: OOB to chair. Still with audible wheeze but reports feeling better. PEF : 200 (best she feels is around 250?) Reports pruritus of the right arm/shoulder/leg. Intake & Output 11/13/18 11/14/18 11/15/18 11/16/18 23:59 23:59 23:59 23:59 Intake Total 067 517 1153 40 Balance 220 202 5906 40 Weight 165 lb 161 lb 3.2 oz 160 lb 160 lb 4 oz Last Vital Signs Temp Pulse Resp BP Pulse Ox 98.7 F 88 20 156/72 96 11/16/18 09:02 11/16/18 09:02 11/16/18 09:02 11/16/18 09:02 11/14/18 21:00 Active Medications Albuterol Sulfate (Ventolin 0.083% Nebulizer Soln -) 1 amp NEB Q4H PRN PRN Reason: SHORT OF BREATH/WHEEZING Last Admin: 11/13/18 11:00 Dose: 1 amp Albuterol/Ipratropium (Duoneb -) 1 amp NEB RQID [facility] Last Admin: 11/16/18 11:33 Dose: 1 amp Amlodipine Besylate (Norvasc -) 5 mg PO DAILY [facility] Last Admin: 11/16/18 10:43 Dose: 5 mg Atorvastatin Calcium (Lipitor -) 20 mg PO HS [facility] Last Admin: 11/15/18 22:00 Dose: 20 mg Budesonide/Formoterol Fumarate (Symbicort 160/4.5mcg -) 2 puff IH BID [facility] Last Admin: 11/16/18 10:47 Dose: 2 puff Chlorthalidone (Hygroton -) 25 mg PO DAILY [facility] Last Admin: 11/16/18 10:43 Dose: 25 mg Enoxaparin Sodium (Lovenox -) 40 mg SQ DAILY [facility] Last Admin: 11/16/18 10:43 Dose: 40 mg Guaifenesin (Mucinex -) 600 mg PO BID [facility] Last Admin: 11/16/18 10:43 Dose: 600 mg Insulin Aspart (Novolog Vial Sliding Scale -) 1 vial SQ [facility]; Protocol Last Admin: 11/16/18 06:21 Dose: 6 unit Insulin Detemir (Levemir Vial) 10 units SQ [facility] Last Admin: 11/15/18 22:00 Dose: 10 units Metformin HCl (Glucophage -) 1,000 mg PO BID@0700,1630 [facility] Last Admin: 11/16/18 06:24 Dose: 1,000 mg Methylprednisolone Sodium Succinate (Solu-Medrol -) 60 mg IVPUSH TID [facility] Last Admin: 11/16/18 06:22 Dose: 60 mg Montelukast Sodium (Singulair -) 10 mg PO HS [facility] Last Admin: 11/15/18 22:00 Dose: 10 mg Nystatin (Nystatin Oral Suspension -) 500,000 units PO TID [facility] Last Admin: 11/16/18 06:21 Dose: 500,000 units Pantoprazole Sodium (Protonix -) 40 mg PO DAILY [facility] Last Admin: 11/16/18 10:43 Dose: 40 mg Valsartan (Diovan -) 320 mg PO DAILY [facility] Last Admin: 11/16/18 10:43 Dose: 320 mg Zolpidem Tartrate (Ambien -) 5 mg PO HS PRN PRN Reason: INSOMNIA Last Admin: 11/15/18 23:05 Dose: 5 mg Constitutional: Yes: NAD Eyes: Yes: WNL HENT: Yes: WNL Neck: Yes: WNL Cardiovascular: Yes: Regular Rate and Rhythm, S1, S2 Respiratory: Yes: Bilateral Expiratory Wheezes Gastrointestinal: Yes: Normal Bowel Sounds, Soft Extremities: Yes: WNL Edema: Yes Labs: Laboratory Results - last 24 hr 11/15/18 11/15/18 11/16/18 16:48 21:12 06:19 POC Glucometer 273 230 284 11/16/18 11:47 POC Glucometer 194 Problem List - Problems (1) Asthma exacerbation Code(s): J45.901 - UNSPECIFIED ASTHMA WITH (ACUTE) EXACERBATION Qualifiers: Asthma severity: mild Asthma persistence: unspecified Qualified Code(s): J45.901 - Unspecified asthma with (acute) exacerbation (2) COPD exacerbation Code(s): J44.1 - CHRONIC OBSTRUCTIVE PULMONARY DISEASE W (ACUTE) EXACERBATION (3) Dyspnea Code(s): R06.00 - DYSPNEA, UNSPECIFIED (4) Hypercholesteremia Code(s): E78.0 - PURE HYPERCHOLESTEROLEMIA * DO NOT USE * (5) Hypertension Code(s): I10 - ESSENTIAL (PRIMARY) HYPERTENSION Assessment/Plan IMP MODERATE-SEVERE CHRONIC PERSISTENT ASTHMA WITH ACUTE EXACERBATION HTN DM ANXIETY ANEMIA PLAN CONTINUE IV STEROIDS AT THE SAME DOSE INHALED BRONCHODILATORS O2 MONITOR PEAK FLOW ABX SERUM IGE LEVEL ,ALPHA-1 ANTI-TRYPSIN LEVEL OUTPATIENT [facility] GLYCEMIC CONTROL WHILE ON SYSTEMIC STEROIDS DR ARMAS
--- NOTE | 2018-11-16 11:53 | PN ---
Progress Note (short form) - Note Progress Note: breathing better today but now has diffuse body itching and perineal itching completed antibiotics Vital Signs - 24 hr 11/15/18 11/15/18 11/16/18 21:00 23:17 06:32 Temperature 97.6 F 98.0 F Pulse Rate 86 78 Respiratory 20 20 20 Rate Blood Pressure 141/60 133/57 L 11/16/18 09:02 Temperature 98.7 F Pulse Rate 88 Respiratory 20 Rate Blood Pressure 156/72 Current Medications Generic Name Dose Route Start Last Admin Trade Name Freq PRN Reason Stop Dose Admin Albuterol Sulfate 1 amp 11/12/18 12:04 11/13/18 11:00 Ventolin 0.083% Nebulizer Soln - NEB 1 amp Q4H PRN Administration SHORT OF BREATH/WHEEZING Albuterol/Ipratropium 1 amp 11/13/18 12:00 11/16/18 11:33 Duoneb - NEB 1 amp RQID [facility] Administration Amlodipine Besylate 5 mg 11/14/18 11:00 11/16/18 10:43 Norvasc - PO 5 mg DAILY [facility] Administration Atorvastatin Calcium 20 mg 11/12/18 22:00 11/15/18 22:00 Lipitor - PO 20 mg HS [facility] Administration Budesonide/Formoterol Fumarate 2 puff 11/13/18 11:45 11/16/18 10:47 Symbicort 160/4.5mcg - IH 2 puff BID [facility] Administration Calamine 1 applic 11/16/18 12:11 Calamine 8% Topical Lotion - TP QID PRN FOR ITCHING Chlorthalidone 25 mg 11/13/18 10:00 11/16/18 10:43 Hygroton - PO 25 mg DAILY [facility] Administration Diphenhydramine HCl 50 mg 11/16/18 11:52 Benadryl - PO Q6H PRN FOR ITCHING Enoxaparin Sodium 40 mg 11/14/18 10:00 11/16/18 10:43 Lovenox - SQ 40 mg DAILY [facility] Administration Guaifenesin 600 mg 11/13/18 12:15 11/16/18 10:43 Mucinex - PO 600 mg BID [facility] Administration Insulin Aspart 1 vial 11/12/18 16:30 11/16/18 11:54 Novolog Vial Sliding Scale - SQ 2 unit ACHS [facility] Administration Protocol Insulin Detemir 10 units 11/13/18 22:00 11/15/18 22:00 Levemir Vial SQ 10 units HS [facility] Administration Metformin HCl 1,000 mg 11/12/18 16:30 11/16/18 06:24 Glucophage - PO 1,000 mg BID@0700,1630 [facility] Administration Methylprednisolone Sodium Succinate 60 mg 11/15/18 14:00 11/16/18 06:22 Solu-Medrol - IVPUSH 60 mg TID [facility] Administration Montelukast Sodium 10 mg 11/13/18 22:00 11/15/18 22:00 Singulair - PO 10 mg HS [facility] Administration Nystatin 500,000 units 11/13/18 14:00 11/16/18 06:21 Nystatin Oral Suspension - PO 500,000 units TID [facility] Administration Nystatin 1 applic 11/16/18 12:15 Mycostatin Cream - TP BID [facility] Pantoprazole Sodium 40 mg 11/13/18 10:00 11/16/18 10:43 Protonix - PO 40 mg DAILY [facility] Administration Valsartan 320 mg 11/13/18 10:00 11/16/18 10:43 Diovan - PO 320 mg DAILY [facility] Administration Zolpidem Tartrate 5 mg 11/13/18 12:02 11/15/18 23:05 Ambien - PO 5 mg HS PRN Administration INSOMNIA Laboratory Results - last 24 hr 11/15/18 11/15/18 11/16/18 16:48 21:12 06:19 POC Glucometer 273 230 284 11/16/18 11:47 POC Glucometer 194 S1 S2 RRR Lungs ronchi+ less Abd - soft, NT edema none perineal area-- erythema+ no rash noted on body PLAN taper solumedrol nebs add Nystatin cream benadryl prn calamine lotion as needed Problem List - Problems (1) Asthma exacerbation Code(s): J45.901 - UNSPECIFIED ASTHMA WITH (ACUTE) EXACERBATION Qualifiers: Asthma severity: mild Asthma persistence: unspecified Qualified Code(s): J45.901 - Unspecified asthma with (acute) exacerbation (2) Asthma exacerbation in COPD Code(s): J44.1 - CHRONIC OBSTRUCTIVE PULMONARY DISEASE W (ACUTE) EXACERBATION; J45.901 - UNSPECIFIED ASTHMA WITH (ACUTE) EXACERBATION (3) COPD exacerbation Code(s): J44.1 - CHRONIC OBSTRUCTIVE PULMONARY DISEASE W (ACUTE) EXACERBATION (4) Diabetes Code(s): E11.9 - TYPE 2 DIABETES MELLITUS WITHOUT COMPLICATIONS (5) Diastolic CHF Code(s): I50.30 - UNSPECIFIED DIASTOLIC (CONGESTIVE) HEART FAILURE
[2018-11-16] MEDS ORDERED: CALAMINE 8% TOPICAL LOTION 177 ML BOTTLE TP PRN (12:11)
[2018-11-16] MEDS: diphenhydrAMINE HCL 25 MG CAPSULE (FP) PO PRN ×2 (12:20→23:27)
[2018-11-16] MEDS: NYSTATIN 100,000 UNIT/GM TOPICAL CREAM 15 GM TUBE TP SCH ×2 (13:12→22:30)
[2018-11-16] MEDS: ATORVASTATIN CA 20 MG TABLET (FP) PO SCH (22:29)
[2018-11-16] MEDS: MONTELUKAST NA 10 MG TABLET PO SCH (22:29)
[2018-11-16] MEDS: INSULIN (LEVEMIR) 100 UNITS/ML UNITS SQ SCH (22:29)
[2018-11-17] MEDS: INSULIN SLIDING SCALE (NOVOLOG) 1 VIAL SQ SCH ×4 (06:47→21:11)
[2018-11-17] MEDS: NYSTATIN 500,000 UNITS/5 ML SUSPENSION PO SCH ×3 (06:47→21:10)
[2018-11-17] MEDS: metFORMIN HCL 500 MG TABLET (FP) PO SCH ×2 (06:47→16:21)
[2018-11-17] MEDS: methylPREDNISolone NA SUCC 40 MG/1 ML VIAL IVPUSH SCH ×3 (06:48→21:10)
[2018-11-17] MEDS: ALBUTEROL SO4 2.5/IPRATROPIUM 0.5 INH SOL 3 ML VIAL.NEB. NEB SCH ×4 (08:25→20:22)
[2018-11-17] MEDS ORDERED: PT OWN MED DRAWER 7, Y5N ONE (08:32)
[2018-11-17] MEDS: ENOXAPARIN NA (PORCINE) 40 MG/0.4 ML DISP.SYRIN SQ SCH (09:47)
[2018-11-17] MEDS: VALSARTAN 160 MG TABLET (UD) PO SCH (09:48)
[2018-11-17] MEDS: PANTOPRAZOLE 40 MG TABLET (FP) PO SCH (09:48)
[2018-11-17] MEDS: guaiFENesin 600 MG TABLET.ER (FP) PO SCH ×2 (09:48→21:10)
[2018-11-17] MEDS: amLODIPine BESYLATE 5 MG TABLET (FP) PO SCH (09:48)
[2018-11-17] MEDS: CHLORTHALIDONE 25 MG TABLET PO SCH (09:48)
[2018-11-17] MEDS: BUDESONIDE/FORMETEROL FUMARATE 160/4.5 mcg INHALER IH SCH ×2 (09:53→21:14)
[2018-11-17] MEDS: NYSTATIN 100,000 UNIT/GM TOPICAL CREAM 15 GM TUBE TP SCH ×2 (09:55→21:12)
--- NOTE | 2018-11-17 10:22 | PN ---
Progress Note, Physician History of Present Illness: The patient is an 87 Y black woman with PMH of asthma/COPD, diastolic CHF, DM, HTN, anxiety, anemia, and obesity, presents for "asthma exacerbation" for 1 month. Patient was admitted for this complaint last month, and was discharged 3 weeks ago with Zpack and an increasing dose of prednisone (recently increased to 40 2x a day 2 days ago). She notes no change in her symptoms since her discharge, and Dr. Sanchez advised she come to the ED for solumedrol. She endorses associated cough, which was productive of green sputum but is now white and bilateral LE edema (L>R). She was intubated once over 25 years ago, and her current peak flow is 200 (highest was 300). She denies tobacco use, but notes many people in her building smoke. Denies fever, chills, diarrhea, chest pain, sudden weight loss. Patient notes she also has thrush, with associated burning sensation in the throat (on Nystatin). Pt likes to "stay in shape"; she tries to walk 10,000-20,000 steps a day. Allergies: Oral and IV Iodinated Contrast, tetracyclines, shellfish Surgical History: Breast biopsy, tubal ligation Social History: Former smoker (quit 25 years ago). PCP: Dr. Mohini Sanchez Pulm: Dr. Perea - Current Medication List Current Medications: Active Medications Albuterol Sulfate (Ventolin 0.083% Nebulizer Soln -) 1 amp NEB Q4H PRN PRN Reason: SHORT OF BREATH/WHEEZING Last Admin: 11/13/18 11:00 Dose: 1 amp Albuterol/Ipratropium (Duoneb -) 1 amp NEB RQID [facility] Last Admin: 11/16/18 21:27 Dose: 1 amp Amlodipine Besylate (Norvasc -) 5 mg PO DAILY [facility] Last Admin: 11/17/18 09:48 Dose: 5 mg Atorvastatin Calcium (Lipitor -) 20 mg PO HS [facility] Last Admin: 11/16/18 22:29 Dose: 20 mg Budesonide/Formoterol Fumarate (Symbicort 160/4.5mcg -) 2 puff IH BID [facility] Last Admin: 11/17/18 09:53 Dose: 2 puff Calamine (Calamine 8% Topical Lotion -) 1 applic TP QID PRN PRN Reason: FOR ITCHING Last Admin: 11/16/18 13:12 Dose: 1 applic Chlorthalidone (Hygroton -) 25 mg PO DAILY [facility] Last Admin: 11/17/18 09:48 Dose: 25 mg Diphenhydramine HCl (Benadryl -) 50 mg PO Q6H PRN PRN Reason: FOR ITCHING Last Admin: 11/16/18 23:27 Dose: 50 mg Enoxaparin Sodium (Lovenox -) 40 mg SQ DAILY [facility] Last Admin: 11/17/18 09:47 Dose: 40 mg Guaifenesin (Mucinex -) 600 mg PO BID [facility] Last Admin: 11/17/18 09:48 Dose: 600 mg Insulin Aspart (Novolog Vial Sliding Scale -) 1 vial SQ [facility]; Protocol Last Admin: 11/17/18 06:47 Dose: 4 unit Insulin Detemir (Levemir Vial) 10 units SQ HS [facility] Last Admin: 11/16/18 22:29 Dose: 10 units Metformin HCl (Glucophage -) 1,000 mg PO BID@0700,1630 [facility] Last Admin: 11/17/18 06:47 Dose: 1,000 mg Methylprednisolone Sodium Succinate (Solu-Medrol -) 40 mg IVPUSH TID [facility] Last Admin: 11/17/18 06:48 Dose: 40 mg Montelukast Sodium (Singulair -) 10 mg PO HS [facility] Last Admin: 11/16/18 22:29 Dose: 10 mg Nystatin (Nystatin Oral Suspension -) 500,000 units PO TID [facility] Last Admin: 11/17/18 06:47 Dose: 500,000 units Nystatin (Mycostatin Cream -) 1 applic TP BID [facility] Last Admin: 11/17/18 09:55 Dose: 1 applic Pantoprazole Sodium (Protonix -) 40 mg PO DAILY [facility] Last Admin: 11/17/18 09:48 Dose: 40 mg Valsartan (Diovan -) 320 mg PO DAILY [facility] Last Admin: 11/17/18 09:48 Dose: 320 mg Zolpidem Tartrate (Ambien -) 5 mg PO HS PRN PRN Reason: INSOMNIA Last Admin: 11/15/18 23:05 Dose: 5 mg - Objective Vital Signs: Vital Signs Temperature 97.9 F 11/17/18 06:00 Pulse Rate 78 11/17/18 06:00 Respiratory Rate 20 11/16/18 22:27 Blood Pressure 123/58 L 11/17/18 06:00 O2 Sat by Pulse Oximetry (%) 96 11/14/18 21:00 Labs: CBC, BMP 11/12/18 13:45 11/12/18 13:45 Assessment/Plan - Problems (1) Asthma exacerbation in COPD Assessment/Plan: F/u with pulmonolgist Bronchodilators; steroids, O2. Code(s): J44.1 - CHRONIC OBSTRUCTIVE PULMONARY DISEASE W (ACUTE) EXACERBATION; J45.901 - UNSPECIFIED ASTHMA WITH (ACUTE) EXACERBATION (2) Diabetes Code(s): E11.9 - TYPE 2 DIABETES MELLITUS WITHOUT COMPLICATIONS (3) Diastolic CHF Code(s): I50.30 - UNSPECIFIED DIASTOLIC (CONGESTIVE) HEART FAILURE (4) Hypercholesteremia Assessment/Plan: Elevated HDL (123 mg/dl); LDL and triglycerides WNL. On atorvastatin 20 mg/d. Code(s): E78.0 - PURE HYPERCHOLESTEROLEMIA * DO NOT USE * (5) Hypertension Assessment/Plan: On Diovan and chlorthalidone. Code(s): I10 - ESSENTIAL (PRIMARY) HYPERTENSION (6) Obesity (BMI 30.0-34.9) Code(s): E66.9 - OBESITY, UNSPECIFIED
--- NOTE | 2018-11-17 10:46 | PN ---
Progress Note, Physician - Current Medication List Current Medications: Active Medications Albuterol Sulfate (Ventolin 0.083% Nebulizer Soln -) 1 amp NEB Q4H PRN PRN Reason: SHORT OF BREATH/WHEEZING Last Admin: 11/13/18 11:00 Dose: 1 amp Albuterol/Ipratropium (Duoneb -) 1 amp NEB RQID [facility] Last Admin: 11/17/18 08:25 Dose: 1 amp Amlodipine Besylate (Norvasc -) 5 mg PO DAILY [facility] Last Admin: 11/17/18 09:48 Dose: 5 mg Atorvastatin Calcium (Lipitor -) 20 mg PO HS [facility] Last Admin: 11/16/18 22:29 Dose: 20 mg Budesonide/Formoterol Fumarate (Symbicort 160/4.5mcg -) 2 puff IH BID [facility] Last Admin: 11/17/18 09:53 Dose: 2 puff Calamine (Calamine 8% Topical Lotion -) 1 applic TP QID PRN PRN Reason: FOR ITCHING Last Admin: 11/16/18 13:12 Dose: 1 applic Chlorthalidone (Hygroton -) 25 mg PO DAILY [facility] Last Admin: 11/17/18 09:48 Dose: 25 mg Diphenhydramine HCl (Benadryl -) 50 mg PO Q6H PRN PRN Reason: FOR ITCHING Last Admin: 11/16/18 23:27 Dose: 50 mg Enoxaparin Sodium (Lovenox -) 40 mg SQ DAILY [facility] Last Admin: 11/17/18 09:47 Dose: 40 mg Guaifenesin (Mucinex -) 600 mg PO BID [facility] Last Admin: 11/17/18 09:48 Dose: 600 mg Insulin Aspart (Novolog Vial Sliding Scale -) 1 vial SQ [facility]; Protocol Last Admin: 11/17/18 06:47 Dose: 4 unit Insulin Detemir (Levemir Vial) 10 units SQ [facility] Last Admin: 11/16/18 22:29 Dose: 10 units Metformin HCl (Glucophage -) 1,000 mg PO BID@0700,1630 [facility] Last Admin: 11/17/18 06:47 Dose: 1,000 mg Methylprednisolone Sodium Succinate (Solu-Medrol -) 40 mg IVPUSH TID [facility] Last Admin: 11/17/18 06:48 Dose: 40 mg Montelukast Sodium (Singulair -) 10 mg PO HS [facility] Last Admin: 11/16/18 22:29 Dose: 10 mg Nystatin (Nystatin Oral Suspension -) 500,000 units PO TID [facility] Last Admin: 11/17/18 06:47 Dose: 500,000 units Nystatin (Mycostatin Cream -) 1 applic TP BID [facility] Last Admin: 11/17/18 09:55 Dose: 1 applic Pantoprazole Sodium (Protonix -) 40 mg PO DAILY [facility] Last Admin: 11/17/18 09:48 Dose: 40 mg Valsartan (Diovan -) 320 mg PO DAILY [facility] Last Admin: 11/17/18 09:48 Dose: 320 mg Zolpidem Tartrate (Ambien -) 5 mg PO HS PRN PRN Reason: INSOMNIA Last Admin: 11/15/18 23:05 Dose: 5 mg - Objective Vital Signs: Vital Signs Temperature 97.9 F 11/17/18 06:00 Pulse Rate 78 11/17/18 06:00 Respiratory Rate 20 11/16/18 22:27 Blood Pressure 123/58 L 11/17/18 06:00 O2 Sat by Pulse Oximetry (%) 96 11/14/18 21:00 Labs: CBC, BMP 11/12/18 13:45 11/12/18 13:45 Problem List - Problems (1) Asthma exacerbation in COPD Code(s): J44.1 - CHRONIC OBSTRUCTIVE PULMONARY DISEASE W (ACUTE) EXACERBATION; J45.901 - UNSPECIFIED ASTHMA WITH (ACUTE) EXACERBATION (2) Diabetes Code(s): E11.9 - TYPE 2 DIABETES MELLITUS WITHOUT COMPLICATIONS (3) Diastolic CHF Code(s): I50.30 - UNSPECIFIED DIASTOLIC (CONGESTIVE) HEART FAILURE (4) Hypercholesteremia Code(s): E78.0 - PURE HYPERCHOLESTEROLEMIA * DO NOT USE * (5) Hypertension Code(s): I10 - ESSENTIAL (PRIMARY) HYPERTENSION (6) Obesity (BMI 30.0-34.9) Code(s): E66.9 - OBESITY, UNSPECIFIED
--- NOTE | 2018-11-17 11:54 | PN ---
Progress Note (short form) - Note Progress Note: pt seen/ examined chart reviewed sitting in chair feels little better Vital Signs Temp 97.9 F 11/17/18 06:00 Pulse 78 11/17/18 06:00 Resp 20 11/17/18 09:00 BP 123/58 L 11/17/18 06:00 Pulse Ox 96 11/17/18 09:00 Intake & Output 11/16/18 11/16/18 11/17/18 11:59 23:59 11:59 Intake Total 40 1000 490 Balance 40 1000 490 Weight 160 lb 4 oz 160 lb 14.4 oz Intake: IVPB 40 Oral 200 490 Oral Supplement 800 Other: Voiding Method Toilet Toilet Toilet # Unmeasured Voids Void 3 Bowel Movement No Weight Measurement Method Built in Bedscale Built in Bedscale Active Medications Albuterol Sulfate (Ventolin 0.083% Nebulizer Soln -) 1 amp NEB Q4H PRN PRN Reason: SHORT OF BREATH/WHEEZING Last Admin: 11/13/18 11:00 Dose: 1 amp Albuterol/Ipratropium (Duoneb -) 1 amp NEB RQID [facility] Last Admin: 11/17/18 08:25 Dose: 1 amp Amlodipine Besylate (Norvasc -) 5 mg PO DAILY [facility] Last Admin: 11/17/18 09:48 Dose: 5 mg Atorvastatin Calcium (Lipitor -) 20 mg PO HS [facility] Last Admin: 11/16/18 22:29 Dose: 20 mg Budesonide/Formoterol Fumarate (Symbicort 160/4.5mcg -) 2 puff IH BID [facility] Last Admin: 11/17/18 09:53 Dose: 2 puff Calamine (Calamine 8% Topical Lotion -) 1 applic TP QID PRN PRN Reason: FOR ITCHING Last Admin: 11/16/18 13:12 Dose: 1 applic Chlorthalidone (Hygroton -) 25 mg PO DAILY [facility] Last Admin: 11/17/18 09:48 Dose: 25 mg Diphenhydramine HCl (Benadryl -) 50 mg PO Q6H PRN PRN Reason: FOR ITCHING Last Admin: 11/16/18 23:27 Dose: 50 mg Enoxaparin Sodium (Lovenox -) 40 mg SQ DAILY [facility] Last Admin: 11/17/18 09:47 Dose: 40 mg Guaifenesin (Mucinex -) 600 mg PO BID [facility] Last Admin: 11/17/18 09:48 Dose: 600 mg Insulin Aspart (Novolog Vial Sliding Scale -) 1 vial SQ ACHS [facility]; Protocol Last Admin: 11/17/18 11:15 Dose: 4 unit Insulin Detemir (Levemir Vial) 14 units SQ [facility] Metformin HCl (Glucophage -) 1,000 mg PO BID@0700,1630 [facility] Last Admin: 11/17/18 06:47 Dose: 1,000 mg Methylprednisolone Sodium Succinate (Solu-Medrol -) 40 mg IVPUSH TID [facility] Last Admin: 11/17/18 06:48 Dose: 40 mg Montelukast Sodium (Singulair -) 10 mg PO HS [facility] Last Admin: 11/16/18 22:29 Dose: 10 mg Nystatin (Nystatin Oral Suspension -) 500,000 units PO TID [facility] Last Admin: 11/17/18 06:47 Dose: 500,000 units Nystatin (Mycostatin Cream -) 1 applic TP BID [facility] Last Admin: 11/17/18 09:55 Dose: 1 applic Pantoprazole Sodium (Protonix -) 40 mg PO DAILY [facility] Last Admin: 11/17/18 09:48 Dose: 40 mg Valsartan (Diovan -) 320 mg PO DAILY [facility] Last Admin: 11/17/18 09:48 Dose: 320 mg Zolpidem Tartrate (Ambien -) 5 mg PO HS PRN PRN Reason: INSOMNIA Last Admin: 11/15/18 23:05 Dose: 5 mg CBC, BMP 11/12/18 13:45 11/12/18 13:45 Physical Exam S1 S2 RRR Lungs - bilateral Expiratory wheezes Abd - soft, NT edema -trace PLAN Slow improvement Continue present care continue steroids bgm noted- Increase levemir bp better f/u labs will follow. Problem List - Problems (1) Asthma exacerbation Code(s): J45.901 - UNSPECIFIED ASTHMA WITH (ACUTE) EXACERBATION Qualifiers: Asthma severity: mild Asthma persistence: unspecified Qualified Code(s): J45.901 - Unspecified asthma with (acute) exacerbation (2) Asthma exacerbation in COPD Code(s): J44.1 - CHRONIC OBSTRUCTIVE PULMONARY DISEASE W (ACUTE) EXACERBATION; J45.901 - UNSPECIFIED ASTHMA WITH (ACUTE) EXACERBATION (3) COPD exacerbation Code(s): J44.1 - CHRONIC OBSTRUCTIVE PULMONARY DISEASE W (ACUTE) EXACERBATION (4) Diabetes Code(s): E11.9 - TYPE 2 DIABETES MELLITUS WITHOUT COMPLICATIONS (5) Diastolic CHF Code(s): I50.30 - UNSPECIFIED DIASTOLIC (CONGESTIVE) HEART FAILURE
--- NOTE | 2018-11-17 13:53 | PN ---
Progress Note, Physician History of Present Illness: pulmonary alert,feeling better,less cough,less dyspneic - Current Medication List Current Medications: Active Medications Albuterol Sulfate (Ventolin 0.083% Nebulizer Soln -) 1 amp NEB Q4H PRN PRN Reason: SHORT OF BREATH/WHEEZING Last Admin: 11/13/18 11:00 Dose: 1 amp Albuterol/Ipratropium (Duoneb -) 1 amp NEB RQID ON LICENSE OF [facility] Last Admin: 11/17/18 08:25 Dose: 1 amp Amlodipine Besylate (Norvasc -) 5 mg PO DAILY ON [facility] OF [facility] Last Admin: 11/17/18 09:48 Dose: 5 mg Atorvastatin Calcium (Lipitor -) 20 mg PO HS ON [facility] OF [facility] Last Admin: 11/16/18 22:29 Dose: 20 mg Budesonide/Formoterol Fumarate (Symbicort 160/4.5mcg -) 2 puff IH BID ON LICENSE OF [facility] Last Admin: 11/17/18 09:53 Dose: 2 puff Calamine (Calamine 8% Topical Lotion -) 1 applic TP QID PRN PRN Reason: FOR ITCHING Last Admin: 11/16/18 13:12 Dose: 1 applic Chlorthalidone (Hygroton -) 25 mg PO DAILY ON [facility] Last Admin: 11/17/18 09:48 Dose: 25 mg Diphenhydramine HCl (Benadryl -) 50 mg PO Q6H PRN PRN Reason: FOR ITCHING Last Admin: 11/16/18 23:27 Dose: 50 mg Enoxaparin Sodium (Lovenox -) 40 mg SQ DAILY ON [facility] OF [facility] Last Admin: 11/17/18 09:47 Dose: 40 mg Guaifenesin (Mucinex -) 600 mg PO BID ON [facility] OF [facility] Last Admin: 11/17/18 09:48 Dose: 600 mg Insulin Aspart (Novolog Vial Sliding Scale -) 1 vial SQ [facility] ON LICENSE OF [facility]; Protocol Last Admin: 11/17/18 11:15 Dose: 4 unit Insulin Detemir (Levemir Vial) 14 units SQ [facility] Metformin HCl (Glucophage -) 1,000 mg PO BID@0700,1630 ON LICENSE OF [facility] Last Admin: 11/17/18 06:47 Dose: 1,000 mg Methylprednisolone Sodium Succinate (Solu-Medrol -) 40 mg IVPUSH TID ON LICENSE OF [facility] Last Admin: 11/17/18 13:40 Dose: 40 mg Montelukast Sodium (Singulair -) 10 mg PO HS ON [facility] OF [facility] Last Admin: 11/16/18 22:29 Dose: 10 mg Nystatin (Nystatin Oral Suspension -) 500,000 units PO TID ON LICENSE OF [facility] Last Admin: 11/17/18 13:40 Dose: 500,000 units Nystatin (Mycostatin Cream -) 1 applic TP BID ON LICENSE OF [facility] Last Admin: 11/17/18 09:55 Dose: 1 applic Pantoprazole Sodium (Protonix -) 40 mg PO DAILY ON [facility] OF [facility] Last Admin: 11/17/18 09:48 Dose: 40 mg Valsartan (Diovan -) 320 mg PO DAILY ON [facility] Last Admin: 11/17/18 09:48 Dose: 320 mg Zolpidem Tartrate (Ambien -) 5 mg PO HS PRN PRN Reason: INSOMNIA Last Admin: 11/15/18 23:05 Dose: 5 mg - Objective Vital Signs: Vital Signs Temperature 98.1 F 11/17/18 13:48 Pulse Rate 86 11/17/18 13:48 Respiratory Rate 18 11/17/18 13:48 Blood Pressure 121/48 L 11/17/18 13:48 O2 Sat by Pulse Oximetry (%) 96 11/17/18 09:00 Constitutional: Yes: Well Nourished, Calm Eyes: Yes: WNL HENT: Yes: WNL Neck: Yes: WNL Cardiovascular: Yes: Regular Rate and Rhythm, S1, S2 Respiratory: Yes: Wheezes (scattered yuridia wheezes) Gastrointestinal: Yes: Normal Bowel Sounds, Soft Extremities: Yes: WNL Edema: No Labs: CBC, BMP 11/12/18 13:45 Problem List - Problems (1) Asthma exacerbation Code(s): J45.901 - UNSPECIFIED ASTHMA WITH (ACUTE) EXACERBATION Qualifiers: Asthma severity: mild Asthma persistence: unspecified Qualified Code(s): J45.901 - Unspecified asthma with (acute) exacerbation (2) COPD exacerbation Code(s): J44.1 - CHRONIC OBSTRUCTIVE PULMONARY DISEASE W (ACUTE) EXACERBATION (3) Dyspnea Code(s): R06.00 - DYSPNEA, UNSPECIFIED (4) Hypercholesteremia Code(s): E78.0 - PURE HYPERCHOLESTEROLEMIA * DO NOT USE * (5) Hypertension Code(s): I10 - ESSENTIAL (PRIMARY) HYPERTENSION Assessment/Plan IMP MODERATE-SEVERE CHRONIC PERSISTENT ASTHMA WITH ACUTE EXACERBATION HTN DM ANXIETY ANEMIA PLAN CONTINUE IV STEROIDS WITH TAPER INHALED BRONCHODILATORS O2 MONITOR PEAK FLOW SERUM IGE LEVEL ,ALPHA-1 ANTI-TRYPSIN LEVEL OUTPATIENT CHEST PT DR BROWN Problem List - Problems (1) Asthma exacerbation Code(s): J45.901 - UNSPECIFIED ASTHMA WITH (ACUTE) EXACERBATION Qualifiers: Asthma severity: mild Asthma persistence: unspecified Qualified Code(s): J45.901 - Unspecified asthma with (acute) exacerbation (2) COPD exacerbation Code(s): J44.1 - CHRONIC OBSTRUCTIVE PULMONARY DISEASE W (ACUTE) EXACERBATION (3) Dyspnea Code(s): R06.00 - DYSPNEA, UNSPECIFIED (4) Hypercholesteremia Code(s): E78.0 - PURE HYPERCHOLESTEROLEMIA * DO NOT USE *
[2018-11-17] MEDS ORDERED: INSULIN (NOVOLOG) ASPART 100 UNITS/ML 10ML VIAL ONE (21:00)
[2018-11-17] MEDS: MONTELUKAST NA 10 MG TABLET PO SCH (21:10)
[2018-11-17] MEDS: ZOLPIDEM TARTRATE 5 MG TABLET PO PRN (21:10)
[2018-11-17] MEDS: ATORVASTATIN CA 20 MG TABLET (FP) PO SCH (21:10)
[2018-11-17] MEDS: INSULIN (LEVEMIR) 100 UNITS/ML UNITS SQ SCH (21:11)
[2018-11-18] MEDS: methylPREDNISolone NA SUCC 40 MG/1 ML VIAL IVPUSH SCH ×3 (06:05→21:25)
[2018-11-18] MEDS: metFORMIN HCL 500 MG TABLET (FP) PO SCH ×2 (06:06→17:35)
[2018-11-18] MEDS: NYSTATIN 500,000 UNITS/5 ML SUSPENSION PO SCH ×3 (06:06→21:24)
[2018-11-18] MEDS: INSULIN SLIDING SCALE (NOVOLOG) 1 VIAL SQ SCH ×4 (06:36→21:25)
[2018-11-18 07:24] LABS: BASO % 0.3 % (0-2.0); HEMATOCRIT 40.3 % (32.4-45.2); MCH 28.2 pg (25.7-33.7); MCHC 32.2 g/dl (32.0-36.0); MEAN CELL VOLUME 87.4 fl (80-96); MEAN PLT VOLUME 9.9 fl (7.5-11.1); MONO % 6.5 % (3.8-10.2); NEUT % 86.2 % (42.8-82.8); PLATELET COUNT 231 K/MM3 (134-434); RBC 4.62 M/mm3 (3.60-5.2); RDW 15.4 % (11.6-15.6); WHITE BLOOD COUNT 19.9 K/mm3 (4.0-10.0)
[2018-11-18] MEDS: ALBUTEROL SO4 2.5/IPRATROPIUM 0.5 INH SOL 3 ML VIAL.NEB. NEB SCH ×4 (08:00→20:20)
[2018-11-18 08:52] LABS: POTASSIUM 4.4 mmol/L (3.5-5.1)
[2018-11-18 08:58] LABS: ALBUMIN 3.1 g/dl (3.4-5.0); BILIRUBIN,TOTAL 0.3 mg/dL (0.2-1); BLOOD UREA NITROGEN 33.6 mg/dL (7-18); CALCIUM 9.7 mg/dL (8.5-10.1); CREATININE 0.8 mg/dL (0.55-1.3); TOT PROT 5.6 g/dl (6.4-8.2)
[2018-11-18] MEDS: ENOXAPARIN NA (PORCINE) 40 MG/0.4 ML DISP.SYRIN SQ SCH (09:37)
[2018-11-18] MEDS: amLODIPine BESYLATE 5 MG TABLET (FP) PO SCH (09:37)
[2018-11-18] MEDS: VALSARTAN 160 MG TABLET (UD) PO SCH (09:37)
[2018-11-18] MEDS: guaiFENesin 600 MG TABLET.ER (FP) PO SCH ×2 (09:37→21:24)
[2018-11-18] MEDS: PANTOPRAZOLE 40 MG TABLET (FP) PO SCH (09:37)
[2018-11-18] MEDS: CHLORTHALIDONE 25 MG TABLET PO SCH (09:37)
[2018-11-18] MEDS: NYSTATIN 100,000 UNIT/GM TOPICAL CREAM 15 GM TUBE TP SCH ×2 (09:38→21:25)
[2018-11-18] MEDS: BUDESONIDE/FORMETEROL FUMARATE 160/4.5 mcg INHALER IH SCH ×2 (09:38→21:25)
--- NOTE | 2018-11-18 11:18 | PN ---
Progress Note (short form) - Note Progress Note: feels about 50% better coughing no fever Vital Signs - 24 hr 11/17/18 11/17/18 11/17/18 13:48 18:00 22:00 Temperature 98.1 F 97.9 F Pulse Rate 86 87 Respiratory 18 19 Rate Blood Pressure 121/48 L 127/65 O2 Sat by Pulse 96 Oximetry (%) 11/18/18 11/18/18 11/18/18 01:42 09:00 10:43 Temperature 97.6 F 98.5 F Pulse Rate 81 87 Respiratory 20 20 20 Rate Blood Pressure 113/40 L 154/73 O2 Sat by Pulse 97 Oximetry (%) Current Medications Generic Name Dose Route Start Last Admin Trade Name Freq PRN Reason Stop Dose Admin Albuterol Sulfate 1 amp 11/12/18 12:04 11/13/18 11:00 Ventolin 0.083% Nebulizer Soln - NEB 1 amp Q4H PRN Administration SHORT OF BREATH/WHEEZING Albuterol/Ipratropium 1 amp 11/13/18 12:00 11/18/18 08:00 Duoneb - NEB 1 amp RQID [facility] Administration Amlodipine Besylate 5 mg 11/14/18 11:00 11/18/18 09:37 Norvasc - PO 5 mg DAILY [facility] Administration Atorvastatin Calcium 20 mg 11/12/18 22:00 11/17/18 21:10 Lipitor - PO 20 mg HS [facility] Administration Budesonide/Formoterol Fumarate 2 puff 11/13/18 11:45 11/18/18 09:38 Symbicort 160/4.5mcg - IH 2 puff BID [facility] Administration Calamine 1 applic 11/16/18 12:11 11/16/18 13:12 Calamine 8% Topical Lotion - TP 1 applic QID PRN Administration FOR ITCHING Chlorthalidone 25 mg 11/13/18 10:00 11/18/18 09:37 Hygroton - PO 25 mg DAILY [facility] Administration Diphenhydramine HCl 50 mg 11/16/18 11:52 11/16/18 23:27 Benadryl - PO 50 mg Q6H PRN Administration FOR ITCHING Enoxaparin Sodium 40 mg 11/14/18 10:00 11/18/18 09:37 Lovenox - SQ 40 mg DAILY [facility] Administration Guaifenesin 600 mg 11/13/18 12:15 11/18/18 09:37 Mucinex - PO 600 mg BID [facility] Administration Insulin Aspart 1 vial 11/12/18 16:30 11/18/18 11:22 Novolog Vial Sliding Scale - SQ 4 units ACHS [facility] Administration Protocol Insulin Detemir 14 units 11/17/18 11:49 11/17/18 21:11 Levemir Vial SQ 14 units HS [facility] Administration Metformin HCl 1,000 mg 11/12/18 16:30 11/18/18 06:06 Glucophage - PO 1,000 mg BID@0700,1630 [facility] Administration Methylprednisolone Sodium Succinate 40 mg 11/16/18 22:00 11/18/18 06:05 Solu-Medrol - IVPUSH 40 mg TID [facility] Administration Montelukast Sodium 10 mg 11/13/18 22:00 11/17/18 21:10 Singulair - PO 10 mg HS [facility] Administration Nystatin 500,000 units 11/13/18 14:00 11/18/18 06:06 Nystatin Oral Suspension - PO 500,000 units TID [facility] Administration Nystatin 1 applic 11/16/18 13:30 11/18/18 09:38 Mycostatin Cream - TP 1 applic BID [facility] Administration Pantoprazole Sodium 40 mg 11/13/18 10:00 11/18/18 09:37 Protonix - PO 40 mg DAILY [facility] Administration Valsartan 320 mg 11/13/18 10:00 11/18/18 09:37 Diovan - PO 320 mg DAILY [facility] Administration Zolpidem Tartrate 5 mg 11/13/18 12:02 11/17/18 21:10 Ambien - PO 5 mg HS PRN Administration INSOMNIA Laboratory Results - last 24 hr 11/17/18 11/17/18 11/18/18 16:22 21:08 05:56 WBC RBC Hgb Hct MCV MCH MCHC RDW Plt Count MPV Absolute Neuts (auto) Neutrophils % Lymphocytes % Monocytes % Eosinophils % Basophils % Nucleated RBC % Sodium Potassium Chloride Carbon Dioxide Anion Gap BUN Creatinine Est GFR (CKD-EPI)AfAm Est GFR (CKD-EPI)NonAf POC Glucometer 272 267 170 Random Glucose Calcium Total Bilirubin AST ALT Alkaline Phosphatase Total Protein Albumin 11/18/18 11/18/18 11/18/18 06:50 06:50 11:18 WBC 19.9 H RBC 4.62 Hgb 13.0 Hct 40.3 MCV 87.4 MCH 28.2 MCHC 32.2 RDW 15.4 Plt Count 231 MPV 9.9 Absolute Neuts (auto) 17.2 H Neutrophils % 86.2 H Lymphocytes % 7.0 L D Monocytes % 6.5 D Eosinophils % 0.0 Basophils % 0.3 Nucleated RBC % 0 Sodium 135 L Potassium 4.4 Chloride 98 Carbon Dioxide 29 Anion Gap 8 BUN 33.6 H Creatinine 0.8 Est GFR (CKD-EPI)AfAm 81.84 Est GFR (CKD-EPI)NonAf 70.61 POC Glucometer 211 Random Glucose 168 H Calcium 9.7 Total Bilirubin 0.3 AST 6 L ALT 27 Alkaline Phosphatase 39 L Total Protein 5.6 L Albumin 3.1 L S1 S2 RRR Lungs ronchi+ Abd - soft, NT edema none PLAN current dose solumedrol-- tid 40mg nebs standing and prn continue with meds lasix prn iv antibiotics completed Problem List - Problems (1) Asthma exacerbation Code(s): J45.901 - UNSPECIFIED ASTHMA WITH (ACUTE) EXACERBATION Qualifiers: Asthma severity: mild Asthma persistence: unspecified Qualified Code(s): J45.901 - Unspecified asthma with (acute) exacerbation (2) Asthma exacerbation in COPD Code(s): J44.1 - CHRONIC OBSTRUCTIVE PULMONARY DISEASE W (ACUTE) EXACERBATION; J45.901 - UNSPECIFIED ASTHMA WITH (ACUTE) EXACERBATION (3) COPD exacerbation Code(s): J44.1 - CHRONIC OBSTRUCTIVE PULMONARY DISEASE W (ACUTE) EXACERBATION (4) Diabetes Code(s): E11.9 - TYPE 2 DIABETES MELLITUS WITHOUT COMPLICATIONS (5) Diastolic CHF Code(s): I50.30 - UNSPECIFIED DIASTOLIC (CONGESTIVE) HEART FAILURE
[2018-11-18 11:57] LABS: ANISOCYTOSIS 0; MACROCYTOSIS 0; PLATELET ESTIMATE NORMAL
--- NOTE | 2018-11-18 13:21 | PN ---
Progress Note, Physician History of Present Illness: pulmonary alert,still congested,+cough - Current Medication List Current Medications: Active Medications Al Hydroxide/Mg Hydroxide (Mylanta Oral Suspension -) 30 ml PO Q6H PRN PRN Reason: DYSPEPSIA Albuterol Sulfate (Ventolin 0.083% Nebulizer Soln -) 1 amp NEB Q4H PRN PRN Reason: SHORT OF BREATH/WHEEZING Last Admin: 11/13/18 11:00 Dose: 1 amp Albuterol/Ipratropium (Duoneb -) 1 amp NEB RQID [facility] Last Admin: 11/18/18 12:00 Dose: 1 amp Amlodipine Besylate (Norvasc -) 5 mg PO DAILY [facility] Last Admin: 11/18/18 09:37 Dose: 5 mg Atorvastatin Calcium (Lipitor -) 20 mg PO HS [facility] Last Admin: 11/17/18 21:10 Dose: 20 mg Budesonide/Formoterol Fumarate (Symbicort 160/4.5mcg -) 2 puff IH BID [facility] Last Admin: 11/18/18 09:38 Dose: 2 puff Calamine (Calamine 8% Topical Lotion -) 1 applic TP QID PRN PRN Reason: FOR ITCHING Last Admin: 11/16/18 13:12 Dose: 1 applic Chlorthalidone (Hygroton -) 25 mg PO DAILY [facility] Last Admin: 11/18/18 09:37 Dose: 25 mg Diphenhydramine HCl (Benadryl -) 50 mg PO Q6H PRN PRN Reason: FOR ITCHING Last Admin: 11/16/18 23:27 Dose: 50 mg Enoxaparin Sodium (Lovenox -) 40 mg SQ DAILY [facility] Last Admin: 11/18/18 09:37 Dose: 40 mg Guaifenesin (Mucinex -) 600 mg PO BID [facility] Last Admin: 11/18/18 09:37 Dose: 600 mg Insulin Aspart (Novolog Vial Sliding Scale -) 1 vial SQ [facility]; Protocol Last Admin: 11/18/18 11:22 Dose: 4 units Insulin Detemir (Levemir Vial) 14 units SQ [facility] Last Admin: 11/17/18 21:11 Dose: 14 units Metformin HCl (Glucophage -) 1,000 mg PO BID@0700,1630 [facility] Last Admin: 11/18/18 06:06 Dose: 1,000 mg Methylprednisolone Sodium Succinate (Solu-Medrol -) 40 mg IVPUSH TID [facility] Last Admin: 11/18/18 06:05 Dose: 40 mg Montelukast Sodium (Singulair -) 10 mg PO HS [facility] Last Admin: 11/17/18 21:10 Dose: 10 mg Nystatin (Nystatin Oral Suspension -) 500,000 units PO TID [facility] Last Admin: 11/18/18 06:06 Dose: 500,000 units Nystatin (Mycostatin Cream -) 1 applic TP BID [facility] Last Admin: 11/18/18 09:38 Dose: 1 applic Pantoprazole Sodium (Protonix -) 40 mg PO DAILY [facility] Last Admin: 11/18/18 09:37 Dose: 40 mg Valsartan (Diovan -) 320 mg PO DAILY [facility] Last Admin: 11/18/18 09:37 Dose: 320 mg Zolpidem Tartrate (Ambien -) 5 mg PO HS PRN PRN Reason: INSOMNIA Last Admin: 11/17/18 21:10 Dose: 5 mg - Objective Vital Signs: Vital Signs Temperature 98.5 F 11/18/18 10:43 Pulse Rate 87 11/18/18 10:43 Respiratory Rate 20 11/18/18 10:43 Blood Pressure 154/73 11/18/18 10:43 O2 Sat by Pulse Oximetry (%) 97 11/18/18 09:00 Constitutional: Yes: Well Nourished, Calm Eyes: Yes: WNL HENT: Yes: WNL Neck: Yes: WNL Cardiovascular: Yes: Regular Rate and Rhythm, S1, S2 Respiratory: Yes: Rhonchi (bilateral wheezes and rhonchi), Wheezes Gastrointestinal: Yes: Normal Bowel Sounds, Soft Extremities: Yes: WNL Edema: Yes Edema: LLE: Trace, RLE: Trace Labs: CBC, BMP 11/18/18 06:50 11/18/18 06:50 Problem List - Problems (1) Asthma exacerbation Code(s): J45.901 - UNSPECIFIED ASTHMA WITH (ACUTE) EXACERBATION Qualifiers: Asthma severity: mild Asthma persistence: unspecified Qualified Code(s): J45.901 - Unspecified asthma with (acute) exacerbation (2) COPD exacerbation Code(s): J44.1 - CHRONIC OBSTRUCTIVE PULMONARY DISEASE W (ACUTE) EXACERBATION (3) Dyspnea Code(s): R06.00 - DYSPNEA, UNSPECIFIED (4) Hypercholesteremia Code(s): E78.0 - PURE HYPERCHOLESTEROLEMIA * DO NOT USE * (5) Hypertension Code(s): I10 - ESSENTIAL (PRIMARY) HYPERTENSION Assessment/Plan IMP MODERATE-SEVERE CHRONIC PERSISTENT ASTHMA WITH ACUTE EXACERBATION HTN DM ANXIETY ANEMIA PLAN CONTINUE IV STEROIDS SAME DOSE INHALED BRONCHODILATORS O2 MONITOR PEAK FLOW SERUM IGE LEVEL ,ALPHA-1 ANTI-TRYPSIN LEVEL OUTPATIENT CHEST PT CHEST X-RAY TODAY DR BROWN Problem List - Problems (1) Asthma exacerbation Code(s): J45.901 - UNSPECIFIED ASTHMA WITH (ACUTE) EXACERBATION Qualifiers: Asthma severity: mild Asthma persistence: unspecified Qualified Code(s): J45.901 - Unspecified asthma with (acute) exacerbation (2) COPD exacerbation Code(s): J44.1 - CHRONIC OBSTRUCTIVE PULMONARY DISEASE W (ACUTE) EXACERBATION (3) Dyspnea Code(s): R06.00 - DYSPNEA, UNSPECIFIED (4) Hypercholesteremia Code(s): E78.0 - PURE HYPERCHOLESTEROLEMIA * DO NOT USE *
[2018-11-18] MEDS: MAG HYDROX/AL HYDROX/SIMETH 30 ML UNIT-DOSE CUP PO PRN (13:33)
[2018-11-18] MEDS ORDERED: PT OWN MED DRAWER 7, Y5N ONE (18:41)
[2018-11-18] MEDS ORDERED: INSULIN (NOVOLOG) ASPART 100 UNITS/ML 10ML VIAL ONE (20:42)
[2018-11-18] MEDS: INSULIN (LEVEMIR) 100 UNITS/ML UNITS SQ SCH (21:24)
[2018-11-18] MEDS: MONTELUKAST NA 10 MG TABLET PO SCH (21:24)
[2018-11-18] MEDS: ZOLPIDEM TARTRATE 5 MG TABLET PO PRN (21:24)
[2018-11-18] MEDS: ATORVASTATIN CA 20 MG TABLET (FP) PO SCH (21:24)
[2018-11-19] MEDS: metFORMIN HCL 500 MG TABLET (FP) PO SCH ×2 (06:04→16:53)
[2018-11-19] MEDS: methylPREDNISolone NA SUCC 40 MG/1 ML VIAL IVPUSH SCH ×2 (06:04→22:04)
[2018-11-19] MEDS: NYSTATIN 500,000 UNITS/5 ML SUSPENSION PO SCH ×3 (06:04→22:04)
[2018-11-19] MEDS: INSULIN SLIDING SCALE (NOVOLOG) 1 VIAL SQ SCH ×4 (06:35→22:14)
--- NOTE | 2018-11-19 07:15 | PN ---
Progress Note, Physician Chief Complaint: Pt A&Ox3; OOB in chair; feeling better, though still SOB at rest intermittently. She has started walking up and down the long hallway outside her room. History of Present Illness: The patient is an 87 Y black woman with PMH of asthma/COPD, diastolic CHF, DM, HTN, anxiety, anemia, and obesity, presents for "asthma exacerbation" for 1 month. Patient was admitted for this complaint last month, and was discharged 3 weeks ago with Zpack and an increasing dose of prednisone (recently increased to 40 2x a day 2 days ago). She notes no change in her symptoms since her discharge, and Dr. Sanchez advised she come to the ED for solumedrol. She endorses associated cough, which was productive of green sputum but is now white and bilateral LE edema (L>R). She was intubated once over 25 years ago, and her current peak flow is 200 (highest was 300). She denies tobacco use, but notes many people in her building smoke. Denies fever, chills, diarrhea, chest pain, sudden weight loss. Patient notes she also has thrush, with associated burning sensation in the throat (on Nystatin). Pt likes to "stay in shape"; she tries to walk 10,000-20,000 steps a day. Allergies: Oral and IV Iodinated Contrast, tetracyclines, shellfish Surgical History: Breast biopsy, tubal ligation Social History: Former smoker (quit 25 years ago). PCP: Dr. Mohini Sanchez Pulm: Dr. Perea - Current Medication List Current Medications: Active Medications Al Hydroxide/Mg Hydroxide (Mylanta Oral Suspension -) 30 ml PO Q6H PRN PRN Reason: DYSPEPSIA Last Admin: 11/18/18 13:33 Dose: 30 ml Albuterol Sulfate (Ventolin 0.083% Nebulizer Soln -) 1 amp NEB Q4H PRN PRN Reason: SHORT OF BREATH/WHEEZING Last Admin: 11/13/18 11:00 Dose: 1 amp Albuterol/Ipratropium (Duoneb -) 1 amp NEB RQID [facility] Last Admin: 11/18/18 20:20 Dose: 1 amp Amlodipine Besylate (Norvasc -) 5 mg PO DAILY [facility] Last Admin: 11/18/18 09:37 Dose: 5 mg Atorvastatin Calcium (Lipitor -) 20 mg PO HS [facility] Last Admin: 11/18/18 21:24 Dose: 20 mg Budesonide/Formoterol Fumarate (Symbicort 160/4.5mcg -) 2 puff IH BID [facility] Last Admin: 11/18/18 21:25 Dose: 2 puff Calamine (Calamine 8% Topical Lotion -) 1 applic TP QID PRN PRN Reason: FOR ITCHING Last Admin: 11/16/18 13:12 Dose: 1 applic Chlorthalidone (Hygroton -) 25 mg PO DAILY [facility] Last Admin: 11/18/18 09:37 Dose: 25 mg Diphenhydramine HCl (Benadryl -) 50 mg PO Q6H PRN PRN Reason: FOR ITCHING Last Admin: 11/16/18 23:27 Dose: 50 mg Enoxaparin Sodium (Lovenox -) 40 mg SQ DAILY [facility] Last Admin: 11/18/18 09:37 Dose: 40 mg Guaifenesin (Mucinex -) 600 mg PO BID [facility] Last Admin: 11/18/18 21:24 Dose: 600 mg Insulin Aspart (Novolog Vial Sliding Scale -) 1 vial SQ [facility]; Protocol Last Admin: 11/19/18 06:35 Dose: 4 units Insulin Detemir (Levemir Vial) 14 units SQ [facility] Last Admin: 11/18/18 21:24 Dose: 14 units Metformin HCl (Glucophage -) 1,000 mg PO BID@0700,1630 [facility] Last Admin: 11/19/18 06:04 Dose: 1,000 mg Methylprednisolone Sodium Succinate (Solu-Medrol -) 40 mg IVPUSH TID [facility] Last Admin: 11/19/18 06:04 Dose: 40 mg Montelukast Sodium (Singulair -) 10 mg PO [facility] Last Admin: 11/18/18 21:24 Dose: 10 mg Nystatin (Nystatin Oral Suspension -) 500,000 units PO TID [facility] Last Admin: 11/19/18 06:04 Dose: 500,000 units Nystatin (Mycostatin Cream -) 1 applic TP BID [facility] Last Admin: 11/18/18 21:25 Dose: 1 applic Pantoprazole Sodium (Protonix -) 40 mg PO DAILY [facility] Last Admin: 11/18/18 09:37 Dose: 40 mg Valsartan (Diovan -) 320 mg PO DAILY [facility] Last Admin: 11/18/18 09:37 Dose: 320 mg Zolpidem Tartrate (Ambien -) 5 mg PO HS PRN PRN Reason: INSOMNIA Last Admin: 11/18/18 21:24 Dose: 5 mg - Objective Vital Signs: Vital Signs Temperature 97.8 F 11/19/18 06:00 Pulse Rate 83 11/19/18 06:00 Respiratory Rate 20 11/19/18 06:00 Blood Pressure 152/72 11/19/18 06:00 O2 Sat by Pulse Oximetry (%) 96 11/18/18 22:00 Constitutional: Yes: Calm Eyes: Yes: WNL HENT: Yes: WNL Neck: Yes: WNL Cardiovascular: Yes: S1, S2, S4 Respiratory: Yes: Diminished, Wheezes (espiratory; upper sanchez posterior thorax ) Gastrointestinal: Yes: Soft ...Rectal Exam: Yes: Deferred Genitourinary: No: Anuria Breast(s): Yes: WNL Musculoskeletal: Yes: Muscle Weakness Extremities: Yes: Cool Edema: No Peripheral Pulses WNL: Yes Integumentary: Yes: WNL Neurological: Yes: Alert, Oriented Psychiatric: Yes: WNL Labs: CBC, BMP 11/18/18 06:50 11/18/18 06:50 Abnormal Lab Results 11/18/18 11/18/18 06:50 06:50 WBC 19.9 H Absolute Neuts (auto) 17.2 H Neutrophils % 86.2 H Neutrophils % (Manual) 83.0 H Lymphocytes % 7.0 L D Myelocytes % (Man) 3 H D Sodium 135 L BUN 33.6 H Random Glucose 168 H AST 6 L Alkaline Phosphatase 39 L Total Protein 5.6 L Albumin 3.1 L Problem List - Problems (1) Asthma exacerbation in COPD Assessment/Plan: F/u with pulmonolgist Bronchodilators; steroids, O2. Pt OOB; now walking more (slowly, in hallway). Code(s): J44.1 - CHRONIC OBSTRUCTIVE PULMONARY DISEASE W (ACUTE) EXACERBATION; J45.901 - UNSPECIFIED ASTHMA WITH (ACUTE) EXACERBATION (2) Diabetes Assessment/Plan: On glucophage, Levemir, Novolog. On Diovan (HTN; renal protection with DM). Code(s): E11.9 - TYPE 2 DIABETES MELLITUS WITHOUT COMPLICATIONS (3) Diastolic CHF Assessment/Plan: On valsartan and chlorthalidone. F/u BUN/Cr, electrolytes, daily weight, Is and Os. F/u prior workup for coronary arteries (stress MIBI). Code(s): I50.30 - UNSPECIFIED DIASTOLIC (CONGESTIVE) HEART FAILURE (4) Hypercholesteremia Assessment/Plan: Elevated HDL (123 mg/dl); LDL 67 and triglycerides 40. Continue atorvastatin 20 mg/d. Code(s): E78.0 - PURE HYPERCHOLESTEROLEMIA * DO NOT USE * (5) Hypertension Assessment/Plan: On Diovan, amlodipine, and chlorthalidone. Code(s): I10 - ESSENTIAL (PRIMARY) HYPERTENSION (6) Obesity (BMI 30.0-34.9) Code(s): E66.9 - OBESITY, UNSPECIFIED
[2018-11-19] MEDS: ALBUTEROL SO4 2.5/IPRATROPIUM 0.5 INH SOL 3 ML VIAL.NEB. NEB SCH ×4 (08:24→20:25)
[2018-11-19] MEDS ORDERED: PT OWN MED DRAWER 7, Y5N ONE (10:26)
[2018-11-19] MEDS: PANTOPRAZOLE 40 MG TABLET (FP) PO SCH (11:00)
[2018-11-19] MEDS: CHLORTHALIDONE 25 MG TABLET PO SCH (11:00)
[2018-11-19] MEDS: ENOXAPARIN NA (PORCINE) 40 MG/0.4 ML DISP.SYRIN SQ SCH (11:00)
[2018-11-19] MEDS: guaiFENesin 600 MG TABLET.ER (FP) PO SCH ×2 (11:00→22:04)
[2018-11-19] MEDS: VALSARTAN 160 MG TABLET (UD) PO SCH (11:00)
[2018-11-19] MEDS: amLODIPine BESYLATE 5 MG TABLET (FP) PO SCH (11:01)
[2018-11-19] MEDS: NYSTATIN 100,000 UNIT/GM TOPICAL CREAM 15 GM TUBE TP SCH ×2 (11:01→22:04)
[2018-11-19] MEDS: BUDESONIDE/FORMETEROL FUMARATE 160/4.5 mcg INHALER IH SCH ×2 (11:03→22:03)
[2018-11-19] MEDS: MAG HYDROX/AL HYDROX/SIMETH 30 ML UNIT-DOSE CUP PO PRN (11:05)
[2018-11-19] MEDS ORDERED: INSULIN (NOVOLOG) ASPART 100 UNITS/ML 10ML VIAL ONE ×3 (11:29→21:08)
--- NOTE | 2018-11-19 11:31 | PN ---
Progress Note (short form) - Note Progress Note: feels better than yesterday no SOB no fever Vital Signs - 24 hr 11/18/18 11/18/18 11/18/18 13:39 20:16 22:00 Temperature 97.9 F 99.6 F Pulse Rate 93 H 95 H Respiratory 20 21 H Rate Blood Pressure 114/65 136/69 O2 Sat by Pulse 96 Oximetry (%) 11/19/18 11/19/18 11/19/18 02:16 06:00 09:19 Temperature 98.3 F 97.8 F 97.8 F Pulse Rate 87 83 86 Respiratory 20 20 20 Rate Blood Pressure 144/74 152/72 143/59 L O2 Sat by Pulse Oximetry (%) Current Medications Generic Name Dose Route Start Last Admin Trade Name Freq PRN Reason Stop Dose Admin Al Hydroxide/Mg Hydroxide 30 ml 11/18/18 11:48 11/19/18 11:05 Mylanta Oral Suspension - PO 30 ml Q6H PRN Administration DYSPEPSIA Albuterol Sulfate 1 amp 11/12/18 12:04 11/13/18 11:00 Ventolin 0.083% Nebulizer Soln - NEB 1 amp Q4H PRN Administration SHORT OF BREATH/WHEEZING Albuterol/Ipratropium 1 amp 11/13/18 12:00 11/19/18 11:24 Duoneb - NEB 1 amp RQID CORNELL Administration Amlodipine Besylate 5 mg 11/14/18 11:00 11/19/18 11:01 Norvasc - PO 5 mg DAILY CORNELL Administration Atorvastatin Calcium 20 mg 11/12/18 22:00 11/18/18 21:24 Lipitor - PO 20 mg HS CORNELL Administration Budesonide/Formoterol Fumarate 2 puff 11/13/18 11:45 11/19/18 11:03 Symbicort 160/4.5mcg - IH 2 puff BID CORNELL Administration Calamine 1 applic 11/16/18 12:11 11/16/18 13:12 Calamine 8% Topical Lotion - TP 1 applic QID PRN Administration FOR ITCHING Chlorthalidone 25 mg 11/13/18 10:00 11/19/18 11:00 Hygroton - PO 25 mg DAILY CORNELL Administration Diphenhydramine HCl 50 mg 11/16/18 11:52 11/16/18 23:27 Benadryl - PO 50 mg Q6H PRN Administration FOR ITCHING Enoxaparin Sodium 40 mg 11/14/18 10:00 11/19/18 11:00 Lovenox - SQ 40 mg DAILY CORNELL Administration Guaifenesin 600 mg 11/13/18 12:15 11/19/18 11:00 Mucinex - PO 600 mg BID CORNELL Administration Insulin Aspart 1 vial 11/12/18 16:30 11/19/18 06:35 Novolog Vial Sliding Scale - SQ 4 units ACHS CORNELL Administration Protocol Insulin Detemir 14 units 11/17/18 11:49 11/18/18 21:24 Levemir Vial SQ 14 units HS CORNELL Administration Metformin HCl 1,000 mg 11/12/18 16:30 11/19/18 06:04 Glucophage - PO 1,000 mg BID@0700,1630 CORNELL Administration Methylprednisolone Sodium Succinate 40 mg 11/16/18 22:00 11/19/18 06:04 Solu-Medrol - IVPUSH 40 mg TID CORNELL Administration Montelukast Sodium 10 mg 11/13/18 22:00 11/18/18 21:24 Singulair - PO 10 mg HS CORNELL Administration Nystatin 500,000 units 11/13/18 14:00 11/19/18 06:04 Nystatin Oral Suspension - PO 500,000 units TID CORNELL Administration Nystatin 1 applic 11/16/18 13:30 11/19/18 11:01 Mycostatin Cream - TP 1 applic BID CORNELL Administration Pantoprazole Sodium 40 mg 11/13/18 10:00 11/19/18 11:00 Protonix - PO 40 mg DAILY CORNELL Administration Valsartan 320 mg 11/13/18 10:00 11/19/18 11:00 Diovan - PO 320 mg DAILY CORNELL Administration Zolpidem Tartrate 5 mg 11/13/18 12:02 11/18/18 21:24 Ambien - PO 5 mg HS PRN Administration INSOMNIA Laboratory Results - last 24 hr 11/18/18 11/18/18 11/18/18 06:50 17:30 21:02 Neutrophils % (Manual) 83.0 H Band Neutrophils % 0.0 Lymphocytes % (Manual) 8.0 D Monocytes % (Manual) 5 Eosinophils % (Manual) 0.0 Basophils % (Manual) 0.0 Myelocytes % (Man) 3 H D Promyelocytes % (Man) 0 Blast Cells % (Manual) 0 Metamyelocytes 0 D Hypochromia 0 Platelet Estimate Normal Polychromasia 0 Poikilocytosis 0 Anisocytosis 0 Microcytosis 0 Macrocytosis 0 POC Glucometer 337 288 11/19/18 11/19/18 05:56 11:25 Neutrophils % (Manual) Band Neutrophils % Lymphocytes % (Manual) Monocytes % (Manual) Eosinophils % (Manual) Basophils % (Manual) Myelocytes % (Man) Promyelocytes % (Man) Blast Cells % (Manual) Metamyelocytes Hypochromia Platelet Estimate Polychromasia Poikilocytosis Anisocytosis Microcytosis Macrocytosis POC Glucometer 226 267 S1 S2 RRR Lungs ronchi+ decreased Abd - soft, NT edema 1+ today PLAN current dose solumedrol-- tid 40mg -- may taper if ok with Pulmonary tomorrow nebs standing and prn continue with meds lasix prn iv antibiotics completed Problem List - Problems (1) Asthma exacerbation Code(s): J45.901 - UNSPECIFIED ASTHMA WITH (ACUTE) EXACERBATION Qualifiers: Asthma severity: mild Asthma persistence: unspecified Qualified Code(s): J45.901 - Unspecified asthma with (acute) exacerbation (2) Asthma exacerbation in COPD Code(s): J44.1 - CHRONIC OBSTRUCTIVE PULMONARY DISEASE W (ACUTE) EXACERBATION; J45.901 - UNSPECIFIED ASTHMA WITH (ACUTE) EXACERBATION (3) COPD exacerbation Code(s): J44.1 - CHRONIC OBSTRUCTIVE PULMONARY DISEASE W (ACUTE) EXACERBATION (4) Diabetes Code(s): E11.9 - TYPE 2 DIABETES MELLITUS WITHOUT COMPLICATIONS (5) Diastolic CHF Code(s): I50.30 - UNSPECIFIED DIASTOLIC (CONGESTIVE) HEART FAILURE
[2018-11-19] MEDS ORDERED: FUROSEMIDE 40 MG/4 ML INJECTABLE VIAL IVPUSH ONE (11:32)
--- NOTE | 2018-11-19 11:41 | PN ---
Progress Note, Physician History of Present Illness: The patient is an 87 Y black woman with PMH of asthma/COPD, diastolic CHF, DM, HTN, anxiety, anemia, and obesity, presents for "asthma exacerbation" for 1 month. Patient was admitted for this complaint last month, and was discharged 3 weeks ago with Zpack and an increasing dose of prednisone (recently increased to 40 2x a day 2 days ago). She notes no change in her symptoms since her discharge, and Dr. Sanchez advised she come to the ED for solumedrol. She endorses associated cough, which was productive of green sputum but is now white and bilateral LE edema (L>R). She was intubated once over 25 years ago, and her current peak flow is 200 (highest was 300). She denies tobacco use, but notes many people in her building smoke. Denies fever, chills, diarrhea, chest pain, sudden weight loss. Patient notes she also has thrush, with associated burning sensation in the throat (on Nystatin). Pt likes to "stay in shape"; she tries to walk 10,000-20,000 steps a day. Allergies: Oral and IV Iodinated Contrast, tetracyclines, shellfish Surgical History: Breast biopsy, tubal ligation Social History: Former smoker (quit 25 years ago). PCP: Dr. Mohini Sanchez Pulm: Dr. Perea - Current Medication List Current Medications: Active Medications Al Hydroxide/Mg Hydroxide (Mylanta Oral Suspension -) 30 ml PO Q6H PRN PRN Reason: DYSPEPSIA Last Admin: 11/19/18 11:05 Dose: 30 ml Albuterol Sulfate (Ventolin 0.083% Nebulizer Soln -) 1 amp NEB Q4H PRN PRN Reason: SHORT OF BREATH/WHEEZING Last Admin: 11/13/18 11:00 Dose: 1 amp Albuterol/Ipratropium (Duoneb -) 1 amp NEB RQID [facility] Last Admin: 11/19/18 11:24 Dose: 1 amp Amlodipine Besylate (Norvasc -) 5 mg PO DAILY [facility] Last Admin: 11/19/18 11:01 Dose: 5 mg Atorvastatin Calcium (Lipitor -) 20 mg PO HS [facility] Last Admin: 11/18/18 21:24 Dose: 20 mg Budesonide/Formoterol Fumarate (Symbicort 160/4.5mcg -) 2 puff IH BID [facility] Last Admin: 11/19/18 11:03 Dose: 2 puff Calamine (Calamine 8% Topical Lotion -) 1 applic TP QID PRN PRN Reason: FOR ITCHING Last Admin: 11/16/18 13:12 Dose: 1 applic Chlorthalidone (Hygroton -) 25 mg PO DAILY [facility] Last Admin: 11/19/18 11:00 Dose: 25 mg Diphenhydramine HCl (Benadryl -) 50 mg PO Q6H PRN PRN Reason: FOR ITCHING Last Admin: 11/16/18 23:27 Dose: 50 mg Enoxaparin Sodium (Lovenox -) 40 mg SQ DAILY [facility] Last Admin: 11/19/18 11:00 Dose: 40 mg Guaifenesin (Mucinex -) 600 mg PO BID [facility] Last Admin: 11/19/18 11:00 Dose: 600 mg Insulin Aspart (Novolog Vial Sliding Scale -) 1 vial SQ [facility]; Protocol Last Admin: 11/19/18 11:35 Dose: 6 units Insulin Detemir (Levemir Vial) 14 units SQ [facility] Last Admin: 11/18/18 21:24 Dose: 14 units Metformin HCl (Glucophage -) 1,000 mg PO BID@0700,1630 [facility] Last Admin: 11/19/18 06:04 Dose: 1,000 mg Methylprednisolone Sodium Succinate (Solu-Medrol -) 40 mg IVPUSH TID [facility] Last Admin: 11/19/18 06:04 Dose: 40 mg Montelukast Sodium (Singulair -) 10 mg PO HS [facility] Last Admin: 11/18/18 21:24 Dose: 10 mg Nystatin (Nystatin Oral Suspension -) 500,000 units PO TID [facility] Last Admin: 11/19/18 06:04 Dose: 500,000 units Nystatin (Mycostatin Cream -) 1 applic TP BID [facility] Last Admin: 11/19/18 11:01 Dose: 1 applic Pantoprazole Sodium (Protonix -) 40 mg PO DAILY [facility] Last Admin: 11/19/18 11:00 Dose: 40 mg Valsartan (Diovan -) 320 mg PO DAILY [facility] Last Admin: 11/19/18 11:00 Dose: 320 mg Zolpidem Tartrate (Ambien -) 5 mg PO HS PRN PRN Reason: INSOMNIA Last Admin: 11/18/18 21:24 Dose: 5 mg - Objective Vital Signs: Vital Signs Temperature 97.8 F 11/19/18 09:19 Pulse Rate 86 11/19/18 09:19 Respiratory Rate 20 11/19/18 09:19 Blood Pressure 143/59 L 11/19/18 09:19 O2 Sat by Pulse Oximetry (%) 96 11/18/18 22:00 Eyes: Yes: WNL, Conjunctiva Clear, EOM Intact HENT: Yes: WNL, Atraumatic, Normocephalic Neck: Yes: WNL, Supple, Trachea Midline Cardiovascular: Yes: WNL, Regular Rate and Rhythm Respiratory: Yes: WNL, Regular, CTA Bilaterally Gastrointestinal: Yes: WNL, Normal Bowel Sounds Genitourinary: Yes: WNL Musculoskeletal: Yes: WNL Extremities: Yes: WNL Edema: No Integumentary: Yes: WNL Neurological: Yes: WNL, Alert, Oriented ...Motor Strength: WNL Psychiatric: Yes: WNL Labs: CBC, BMP 11/18/18 06:50 11/18/18 06:50 Assessment/Plan - Problems (1) Asthma exacerbation in COPD Assessment/Plan: F/u with pulmonolgist Bronchodilators; steroids, O2. Pt OOB; now walking more (slowly, in hallway). Code(s): J44.1 - CHRONIC OBSTRUCTIVE PULMONARY DISEASE W (ACUTE) EXACERBATION; J45.901 - UNSPECIFIED ASTHMA WITH (ACUTE) EXACERBATION (2) Diabetes Assessment/Plan: On glucophage, Levemir, Novolog. On Diovan (HTN; renal protection with DM). Code(s): E11.9 - TYPE 2 DIABETES MELLITUS WITHOUT COMPLICATIONS (3) Diastolic CHF Assessment/Plan: On valsartan and chlorthalidone. F/u BUN/Cr, electrolytes, daily weight, Is and Os. F/u prior workup for coronary arteries (stress MIBI). Code(s): I50.30 - UNSPECIFIED DIASTOLIC (CONGESTIVE) HEART FAILURE (4) Hypercholesteremia Assessment/Plan: Elevated HDL (123 mg/dl); LDL 67 and triglycerides 40. Continue atorvastatin 20 mg/d. Code(s): E78.0 - PURE HYPERCHOLESTEROLEMIA * DO NOT USE * (5) Hypertension Assessment/Plan: On Diovan, amlodipine, and chlorthalidone. Code(s): I10 - ESSENTIAL (PRIMARY) HYPERTENSION (6) Obesity (BMI 30.0-34.9) Code(s): E66.9 - OBESITY, UNSPECIFIED
--- NOTE | 2018-11-19 12:02 | EKG ---
Test Reason : Blood Pressure : / mmHG Vent. Rate : 087 BPM Atrial Rate : 087 BPM P-R Int : 146 ms QRS Dur : 134 ms QT Int : 380 ms P-R-T Axes : 068 027 049 degrees QTc Int : 457 ms SINUS RHYTHM WITH OCCASIONAL PREMATURE VENTRICULAR COMPLEXES POSSIBLE LEFT ATRIAL ENLARGEMENT RIGHT BUNDLE BRANCH BLOCK ABNORMAL ECG WHEN COMPARED WITH ECG OF 11-OCT-2018 09:14, PREMATURE VENTRICULAR COMPLEXES ARE NOW PRESENT Confirmed by KILLIAN PENALOZA, JULIO ([id number]) on 11/19/2018 12:02:01 PM Referred By: Cristiano CABALLERO Confirmed By:JULIO DAILY MD
--- NOTE | 2018-11-19 13:13 | PN ---
Progress Note, Physician History of Present Illness: pulmonary alert,feeling better,less dyspneic,less cough - Current Medication List Current Medications: Active Medications Al Hydroxide/Mg Hydroxide (Mylanta Oral Suspension -) 30 ml PO Q6H PRN PRN Reason: DYSPEPSIA Last Admin: 11/19/18 11:05 Dose: 30 ml Albuterol Sulfate (Ventolin 0.083% Nebulizer Soln -) 1 amp NEB Q4H PRN PRN Reason: SHORT OF BREATH/WHEEZING Last Admin: 11/13/18 11:00 Dose: 1 amp Albuterol/Ipratropium (Duoneb -) 1 amp NEB RQID [facility] Last Admin: 11/19/18 11:24 Dose: 1 amp Amlodipine Besylate (Norvasc -) 5 mg PO DAILY [facility] Last Admin: 11/19/18 11:01 Dose: 5 mg Atorvastatin Calcium (Lipitor -) 20 mg PO HS [facility] Last Admin: 11/18/18 21:24 Dose: 20 mg Budesonide/Formoterol Fumarate (Symbicort 160/4.5mcg -) 2 puff IH BID [facility] Last Admin: 11/19/18 11:03 Dose: 2 puff Calamine (Calamine 8% Topical Lotion -) 1 applic TP QID PRN PRN Reason: FOR ITCHING Last Admin: 11/16/18 13:12 Dose: 1 applic Chlorthalidone (Hygroton -) 25 mg PO DAILY [facility] Last Admin: 11/19/18 11:00 Dose: 25 mg Diphenhydramine HCl (Benadryl -) 50 mg PO Q6H PRN PRN Reason: FOR ITCHING Last Admin: 11/16/18 23:27 Dose: 50 mg Enoxaparin Sodium (Lovenox -) 40 mg SQ DAILY [facility] Last Admin: 11/19/18 11:00 Dose: 40 mg Guaifenesin (Mucinex -) 600 mg PO BID [facility] Last Admin: 11/19/18 11:00 Dose: 600 mg Insulin Aspart (Novolog Vial Sliding Scale -) 1 vial SQ [facility]; Protocol Last Admin: 11/19/18 11:35 Dose: 6 units Insulin Detemir (Levemir Vial) 14 units SQ [facility] Last Admin: 11/18/18 21:24 Dose: 14 units Metformin HCl (Glucophage -) 1,000 mg PO BID@0700,1630 [facility] Last Admin: 11/19/18 06:04 Dose: 1,000 mg Methylprednisolone Sodium Succinate (Solu-Medrol -) 40 mg IVPUSH TID [facility] Last Admin: 11/19/18 06:04 Dose: 40 mg Montelukast Sodium (Singulair -) 10 mg PO HS [facility] Last Admin: 11/18/18 21:24 Dose: 10 mg Nystatin (Nystatin Oral Suspension -) 500,000 units PO TID [facility] Last Admin: 11/19/18 06:04 Dose: 500,000 units Nystatin (Mycostatin Cream -) 1 applic TP BID [facility] Last Admin: 11/19/18 11:01 Dose: 1 applic Pantoprazole Sodium (Protonix -) 40 mg PO DAILY [facility] Last Admin: 11/19/18 11:00 Dose: 40 mg Valsartan (Diovan -) 320 mg PO DAILY [facility] Last Admin: 11/19/18 11:00 Dose: 320 mg Zolpidem Tartrate (Ambien -) 5 mg PO PRN PRN Reason: INSOMNIA Last Admin: 11/18/18 21:24 Dose: 5 mg - Objective Vital Signs: Vital Signs Temperature 97.8 F 11/19/18 09:19 Pulse Rate 86 11/19/18 09:19 Respiratory Rate 20 11/19/18 09:19 Blood Pressure 143/59 L 11/19/18 09:19 O2 Sat by Pulse Oximetry (%) 96 11/18/18 22:00 Constitutional: Yes: Well Nourished, Calm Eyes: Yes: WNL HENT: Yes: WNL Neck: Yes: WNL Cardiovascular: Yes: Regular Rate and Rhythm, S1, S2 Respiratory: Yes: Rhonchi (less wheezes and rhonchi yuridia), Wheezes Gastrointestinal: Yes: Normal Bowel Sounds, Soft Extremities: Yes: WNL Edema: No Labs: CBC, BMP Problem List - Problems (1) Asthma exacerbation Code(s): J45.901 - UNSPECIFIED ASTHMA WITH (ACUTE) EXACERBATION Qualifiers: Asthma severity: mild Asthma persistence: unspecified Qualified Code(s): J45.901 - Unspecified asthma with (acute) exacerbation (2) COPD exacerbation Code(s): J44.1 - CHRONIC OBSTRUCTIVE PULMONARY DISEASE W (ACUTE) EXACERBATION (3) Dyspnea Code(s): R06.00 - DYSPNEA, UNSPECIFIED (4) Hypercholesteremia Code(s): E78.0 - PURE HYPERCHOLESTEROLEMIA * DO NOT USE * (5) Hypertension Code(s): I10 - ESSENTIAL (PRIMARY) HYPERTENSION Assessment/Plan IMP MODERATE-SEVERE CHRONIC PERSISTENT ASTHMA WITH ACUTE EXACERBATION IMPROVING HTN DM ANXIETY ANEMIA PLAN STEROID TAPER INHALED BRONCHODILATORS O2 MONITOR PEAK FLOW SERUM IGE LEVEL ,ALPHA-1 ANTI-TRYPSIN LEVEL OUTPATIENT CHEST PT DR BROWN Problem List - Problems (1) Asthma exacerbation Code(s): J45.901 - UNSPECIFIED ASTHMA WITH (ACUTE) EXACERBATION Qualifiers: Asthma severity: mild Asthma persistence: unspecified Qualified Code(s): J45.901 - Unspecified asthma with (acute) exacerbation (2) COPD exacerbation Code(s): J44.1 - CHRONIC OBSTRUCTIVE PULMONARY DISEASE W (ACUTE) EXACERBATION (3) Dyspnea Code(s): R06.00 - DYSPNEA, UNSPECIFIED (4) Hypercholesteremia Code(s): E78.0 - PURE HYPERCHOLESTEROLEMIA * DO NOT USE *
[2018-11-19] MEDS: ATORVASTATIN CA 20 MG TABLET (FP) PO SCH (22:04)
[2018-11-19] MEDS: MONTELUKAST NA 10 MG TABLET PO SCH (22:04)
[2018-11-19] MEDS: INSULIN (LEVEMIR) 100 UNITS/ML UNITS SQ SCH (22:14)
[2018-11-19] MEDS: diphenhydrAMINE HCL 25 MG CAPSULE (FP) PO PRN (22:43)
[2018-11-20] MEDS: NYSTATIN 500,000 UNITS/5 ML SUSPENSION PO SCH ×3 (06:37→21:35)
[2018-11-20] MEDS: metFORMIN HCL 500 MG TABLET (FP) PO SCH ×2 (06:37→16:44)
[2018-11-20] MEDS: INSULIN SLIDING SCALE (NOVOLOG) 1 VIAL SQ SCH ×4 (06:40→21:52)
[2018-11-20] MEDS: ALBUTEROL SO4 2.5/IPRATROPIUM 0.5 INH SOL 3 ML VIAL.NEB. NEB SCH ×4 (08:30→20:57)
[2018-11-20] MEDS ORDERED: PT OWN MED DRAWER 7, Y5N ONE (10:43)
[2018-11-20] MEDS: PANTOPRAZOLE 40 MG TABLET (FP) PO SCH (10:47)
[2018-11-20] MEDS: NYSTATIN 100,000 UNIT/GM TOPICAL CREAM 15 GM TUBE TP SCH ×2 (10:47→21:50)
[2018-11-20] MEDS: VALSARTAN 160 MG TABLET (UD) PO SCH (10:47)
[2018-11-20] MEDS: ENOXAPARIN NA (PORCINE) 40 MG/0.4 ML DISP.SYRIN SQ SCH (10:47)
[2018-11-20] MEDS: guaiFENesin 600 MG TABLET.ER (FP) PO SCH ×2 (10:47→21:36)
[2018-11-20] MEDS: amLODIPine BESYLATE 5 MG TABLET (FP) PO SCH (10:47)
[2018-11-20] MEDS: BUDESONIDE/FORMETEROL FUMARATE 160/4.5 mcg INHALER IH SCH ×2 (10:47→21:35)
[2018-11-20] MEDS: CHLORTHALIDONE 25 MG TABLET PO SCH (10:48)
[2018-11-20] MEDS: methylPREDNISolone NA SUCC 40 MG/1 ML VIAL IVPUSH SCH ×3 (10:48→21:36)
[2018-11-20] MEDS: MAG HYDROX/AL HYDROX/SIMETH 30 ML UNIT-DOSE CUP PO PRN (10:52)
--- NOTE | 2018-11-20 12:22 | PN ---
Progress Note (short form) - Note Progress Note: coughing and wheezing more today no fever Vital Signs - 24 hr 11/19/18 11/19/18 11/19/18 13:38 18:00 21:00 Temperature 98.4 F 98.5 F Pulse Rate 89 86 Respiratory 20 20 20 Rate Blood Pressure 118/47 L 128/61 11/20/18 11/20/18 06:00 10:10 Temperature 98.5 F 97.9 F Pulse Rate 86 85 Respiratory 20 Rate Blood Pressure 127/57 L 134/58 L Current Medications Generic Name Dose Route Start Last Admin Trade Name Freq PRN Reason Stop Dose Admin Al Hydroxide/Mg Hydroxide 30 ml 11/18/18 11:48 11/20/18 10:52 Mylanta Oral Suspension - PO 30 ml Q6H PRN Administration DYSPEPSIA Albuterol Sulfate 1 amp 11/12/18 12:04 11/13/18 11:00 Ventolin 0.083% Nebulizer Soln - NEB 1 amp Q4H PRN Administration SHORT OF BREATH/WHEEZING Albuterol/Ipratropium 1 amp 11/13/18 12:00 11/20/18 11:50 Duoneb - NEB 1 amp RQID CORNELL Administration Amlodipine Besylate 5 mg 11/14/18 11:00 11/20/18 10:47 Norvasc - PO 5 mg DAILY COR[facility] Administration Atorvastatin Calcium 20 mg 11/12/18 22:00 11/19/18 22:04 Lipitor - PO 20 mg HS COR[facility]LL Administration Budesonide/Formoterol Fumarate 2 puff 11/13/18 11:45 11/20/18 10:47 Symbicort 160/4.5mcg - IH 2 puff BID COR[facility]LL Administration Calamine 1 applic 11/16/18 12:11 11/16/18 13:12 Calamine 8% Topical Lotion - TP 1 applic QID PRN Administration FOR ITCHING Chlorthalidone 25 mg 11/13/18 10:00 11/20/18 10:48 Hygroton - PO 25 mg DAILY [facility] Administration Diphenhydramine HCl 50 mg 11/16/18 11:52 11/19/18 22:43 Benadryl - PO 50 mg Q6H PRN Administration FOR ITCHING Enoxaparin Sodium 40 mg 11/14/18 10:00 11/20/18 10:47 Lovenox - SQ 40 mg DAILY [facility] Administration Guaifenesin 600 mg 11/13/18 12:15 11/20/18 10:47 Mucinex - PO 600 mg BID COR[facility]LL Administration Insulin Aspart 1 vial 11/12/18 16:30 11/20/18 11:26 Novolog Vial Sliding Scale - SQ Not Given ACHS [facility] Protocol Insulin Detemir 14 units 11/17/18 11:49 11/19/18 22:14 Levemir Vial SQ 14 units HS [facility] Administration Metformin HCl 1,000 mg 11/12/18 16:30 11/20/18 06:37 Glucophage - PO 1,000 mg BID@0700,1630 [facility] Administration Methylprednisolone Sodium Succinate 40 mg 11/20/18 14:00 Solu-Medrol - IVPUSH TID [facility] Montelukast Sodium 10 mg 11/13/18 22:00 11/19/18 22:04 Singulair - PO 10 mg HS [facility] Administration Nystatin 500,000 units 11/13/18 14:00 11/20/18 06:37 Nystatin Oral Suspension - PO 500,000 units TID [facility] Administration Nystatin 1 applic 11/16/18 13:30 11/20/18 10:47 Mycostatin Cream - TP 1 applic BID [facility] Administration Pantoprazole Sodium 40 mg 11/13/18 10:00 11/20/18 10:47 Protonix - PO 40 mg DAILY [facility] Administration Valsartan 320 mg 11/13/18 10:00 11/20/18 10:47 Diovan - PO 320 mg DAILY [facility] Administration Zolpidem Tartrate 5 mg 11/13/18 12:02 11/18/18 21:24 Ambien - PO 5 mg HS PRN Administration INSOMNIA Laboratory Results - last 24 hr 11/19/18 11/19/18 11/20/18 16:25 22:13 06:36 POC Glucometer 186 174 272 11/20/18 11:13 POC Glucometer 88 S1 S2 RRR Lungs ronchi+ decreased Abd - soft, NT edema 1+ today PLAN increase solumedrol back to tid 40mg nebs standing and prn continue with meds lasix prn iv antibiotics completed Problem List - Problems (1) Asthma exacerbation Code(s): J45.901 - UNSPECIFIED ASTHMA WITH (ACUTE) EXACERBATION Qualifiers: Asthma severity: mild Asthma persistence: unspecified Qualified Code(s): J45.901 - Unspecified asthma with (acute) exacerbation (2) Asthma exacerbation in COPD Code(s): J44.1 - CHRONIC OBSTRUCTIVE PULMONARY DISEASE W (ACUTE) EXACERBATION; J45.901 - UNSPECIFIED ASTHMA WITH (ACUTE) EXACERBATION (3) COPD exacerbation Code(s): J44.1 - CHRONIC OBSTRUCTIVE PULMONARY DISEASE W (ACUTE) EXACERBATION (4) Diabetes Code(s): E11.9 - TYPE 2 DIABETES MELLITUS WITHOUT COMPLICATIONS (5) Diastolic CHF Code(s): I50.30 - UNSPECIFIED DIASTOLIC (CONGESTIVE) HEART FAILURE
--- NOTE | 2018-11-20 14:31 | PN ---
Progress Note, Physician History of Present Illness: pulmonary alert,slowly improving,less dyspneic,less congested - Current Medication List Current Medications: Active Medications Al Hydroxide/Mg Hydroxide (Mylanta Oral Suspension -) 30 ml PO Q6H PRN PRN Reason: DYSPEPSIA Last Admin: 11/20/18 10:52 Dose: 30 ml Albuterol Sulfate (Ventolin 0.083% Nebulizer Soln -) 1 amp NEB Q4H PRN PRN Reason: SHORT OF BREATH/WHEEZING Last Admin: 11/13/18 11:00 Dose: 1 amp Albuterol/Ipratropium (Duoneb -) 1 amp NEB RQID [facility] Last Admin: 11/20/18 11:50 Dose: 1 amp Amlodipine Besylate (Norvasc -) 5 mg PO DAILY [facility] Last Admin: 11/20/18 10:47 Dose: 5 mg Atorvastatin Calcium (Lipitor -) 20 mg PO HS [facility] Last Admin: 11/19/18 22:04 Dose: 20 mg Budesonide/Formoterol Fumarate (Symbicort 160/4.5mcg -) 2 puff IH BID [facility] Last Admin: 11/20/18 10:47 Dose: 2 puff Calamine (Calamine 8% Topical Lotion -) 1 applic TP QID PRN PRN Reason: FOR ITCHING Last Admin: 11/16/18 13:12 Dose: 1 applic Chlorthalidone (Hygroton -) 25 mg PO DAILY [facility] Last Admin: 11/20/18 10:48 Dose: 25 mg Diphenhydramine HCl (Benadryl -) 50 mg PO Q6H PRN PRN Reason: FOR ITCHING Last Admin: 11/19/18 22:43 Dose: 50 mg Enoxaparin Sodium (Lovenox -) 40 mg SQ DAILY [facility] Last Admin: 11/20/18 10:47 Dose: 40 mg Guaifenesin (Mucinex -) 600 mg PO BID [facility] Last Admin: 11/20/18 10:47 Dose: 600 mg Insulin Aspart (Novolog Vial Sliding Scale -) 1 vial SQ [facility]; Protocol Last Admin: 11/20/18 11:26 Dose: Not Given Insulin Detemir (Levemir Vial) 14 units SQ [facility] Last Admin: 11/19/18 22:14 Dose: 14 units Metformin HCl (Glucophage -) 1,000 mg PO BID@0700,1630 [facility] Last Admin: 11/20/18 06:37 Dose: 1,000 mg Methylprednisolone Sodium Succinate (Solu-Medrol -) 40 mg IVPUSH TID [facility] Montelukast Sodium (Singulair -) 10 mg PO HS [facility] Last Admin: 11/19/18 22:04 Dose: 10 mg Nystatin (Nystatin Oral Suspension -) 500,000 units PO TID [facility] Last Admin: 11/20/18 06:37 Dose: 500,000 units Nystatin (Mycostatin Cream -) 1 applic TP BID [facility] Last Admin: 11/20/18 10:47 Dose: 1 applic Pantoprazole Sodium (Protonix -) 40 mg PO DAILY [facility] Last Admin: 11/20/18 10:47 Dose: 40 mg Valsartan (Diovan -) 320 mg PO DAILY [facility] Last Admin: 11/20/18 10:47 Dose: 320 mg Zolpidem Tartrate (Ambien -) 5 mg PO HS PRN PRN Reason: INSOMNIA Last Admin: 11/18/18 21:24 Dose: 5 mg - Objective Vital Signs: Vital Signs Temperature 97.9 F 11/20/18 10:10 Pulse Rate 85 11/20/18 10:10 Respiratory Rate 20 11/20/18 10:10 Blood Pressure 134/58 L 11/20/18 10:10 O2 Sat by Pulse Oximetry (%) 96 11/18/18 22:00 Constitutional: Yes: Well Nourished, Calm Eyes: Yes: WNL HENT: Yes: WNL Neck: Yes: WNL Cardiovascular: Yes: Regular Rate and Rhythm, S1, S2 Respiratory: Yes: Rhonchi, Wheezes (scattered yuridia wheezes and rhonchi) Gastrointestinal: Yes: Normal Bowel Sounds, Soft Extremities: Yes: WNL Edema: Yes Labs: CBC, BMP 11/18/18 06:50 11/18/18 06:50 Problem List - Problems (1) Asthma exacerbation Code(s): J45.901 - UNSPECIFIED ASTHMA WITH (ACUTE) EXACERBATION Qualifiers: Asthma severity: mild Asthma persistence: unspecified Qualified Code(s): J45.901 - Unspecified asthma with (acute) exacerbation (2) COPD exacerbation Code(s): J44.1 - CHRONIC OBSTRUCTIVE PULMONARY DISEASE W (ACUTE) EXACERBATION (3) Dyspnea Code(s): R06.00 - DYSPNEA, UNSPECIFIED (4) Hypercholesteremia Code(s): E78.0 - PURE HYPERCHOLESTEROLEMIA * DO NOT USE * (5) Hypertension Code(s): I10 - ESSENTIAL (PRIMARY) HYPERTENSION Assessment/Plan IMP MODERATE-SEVERE CHRONIC PERSISTENT ASTHMA WITH ACUTE EXACERBATION IMPROVING HTN DM ANXIETY ANEMIA PLAN STEROIDS INHALED BRONCHODILATORS O2 MONITOR PEAK FLOW SERUM IGE LEVEL ,ALPHA-1 ANTI-TRYPSIN LEVEL OUTPATIENT CHEST PT DR BROWN Problem List - Problems (1) Asthma exacerbation Code(s): J45.901 - UNSPECIFIED ASTHMA WITH (ACUTE) EXACERBATION Qualifiers: Asthma severity: mild Asthma persistence: unspecified Qualified Code(s): J45.901 - Unspecified asthma with (acute) exacerbation (2) COPD exacerbation Code(s): J44.1 - CHRONIC OBSTRUCTIVE PULMONARY DISEASE W (ACUTE) EXACERBATION (3) Dyspnea Code(s): R06.00 - DYSPNEA, UNSPECIFIED (4) Hypercholesteremia Code(s): E78.0 - PURE HYPERCHOLESTEROLEMIA * DO NOT USE *
[2018-11-20] MEDS ORDERED: INSULIN (NOVOLOG) ASPART 100 UNITS/ML 10ML VIAL ONE ×2 (16:26→21:01)
[2018-11-20 19:09] VITALS: BMI 32.9
[2018-11-20] MEDS ORDERED: INSULIN (LEVEMIR) 100 UNITS/ML UNITS SQ ONE (21:01)
[2018-11-20] MEDS: ATORVASTATIN CA 20 MG TABLET (FP) PO SCH (21:36)
[2018-11-20] MEDS: MONTELUKAST NA 10 MG TABLET PO SCH (21:36)
[2018-11-20] MEDS: INSULIN (LEVEMIR) 100 UNITS/ML UNITS SQ SCH (21:52)
[2018-11-20] MEDS: ZOLPIDEM TARTRATE 5 MG TABLET PO PRN (22:11)
[2018-11-21] MEDS: NYSTATIN 500,000 UNITS/5 ML SUSPENSION PO SCH ×3 (06:37→21:51)
[2018-11-21] MEDS: INSULIN SLIDING SCALE (NOVOLOG) 1 VIAL SQ SCH ×4 (06:38→21:51)
[2018-11-21] MEDS: methylPREDNISolone NA SUCC 40 MG/1 ML VIAL IVPUSH SCH ×2 (06:38→21:52)
[2018-11-21] MEDS: metFORMIN HCL 500 MG TABLET (FP) PO SCH ×2 (06:43→17:23)
[2018-11-21] MEDS: ALBUTEROL SO4 2.5/IPRATROPIUM 0.5 INH SOL 3 ML VIAL.NEB. NEB SCH ×4 (07:23→20:42)
[2018-11-21] MEDS: guaiFENesin 600 MG TABLET.ER (FP) PO SCH ×2 (09:59→21:51)
[2018-11-21] MEDS: VALSARTAN 160 MG TABLET (UD) PO SCH (09:59)
[2018-11-21] MEDS: BUDESONIDE/FORMETEROL FUMARATE 160/4.5 mcg INHALER IH SCH ×2 (09:59→21:52)
[2018-11-21] MEDS: PANTOPRAZOLE 40 MG TABLET (FP) PO SCH (10:00)
[2018-11-21] MEDS: amLODIPine BESYLATE 5 MG TABLET (FP) PO SCH (10:00)
[2018-11-21] MEDS: CHLORTHALIDONE 25 MG TABLET PO SCH (10:01)
[2018-11-21] MEDS: MAG HYDROX/AL HYDROX/SIMETH 30 ML UNIT-DOSE CUP PO PRN (10:09)
[2018-11-21] MEDS: NYSTATIN 100,000 UNIT/GM TOPICAL CREAM 15 GM TUBE TP SCH ×2 (10:10→21:51)
--- NOTE | 2018-11-21 13:14 | PN ---
Progress Note (short form) - Note Progress Note: feeling better today no fever Vital Signs - 24 hr 11/20/18 11/20/18 11/21/18 18:00 21:00 05:00 Temperature 98.6 F 97.8 F Pulse Rate 96 H 80 Respiratory 20 20 Rate Blood Pressure 134/63 136/68 O2 Sat by Pulse 97 Oximetry (%) Current Medications Generic Name Dose Route Start Last Admin Trade Name Freq PRN Reason Stop Dose Admin Al Hydroxide/Mg Hydroxide 30 ml 11/18/18 11:48 11/21/18 10:09 Mylanta Oral Suspension - PO 30 ml Q6H PRN Administration DYSPEPSIA Albuterol Sulfate 1 amp 11/12/18 12:04 11/13/18 11:00 Ventolin 0.083% Nebulizer Soln - NEB 1 amp Q4H PRN Administration SHORT OF BREATH/WHEEZING Albuterol/Ipratropium 1 amp 11/13/18 12:00 11/21/18 11:29 Duoneb - NEB 1 amp RQID [facility] Administration Amlodipine Besylate 5 mg 11/14/18 11:00 11/21/18 10:00 Norvasc - PO 5 mg DAILY [facility] Administration Atorvastatin Calcium 20 mg 11/12/18 22:00 11/20/18 21:36 Lipitor - PO 20 mg HS [facility] Administration Budesonide/Formoterol Fumarate 2 puff 11/13/18 11:45 11/21/18 09:59 Symbicort 160/4.5mcg - IH 2 puff BID [facility] Administration Calamine 1 applic 11/16/18 12:11 11/16/18 13:12 Calamine 8% Topical Lotion - TP 1 applic QID PRN Administration FOR ITCHING Chlorthalidone 25 mg 11/13/18 10:00 11/21/18 10:01 Hygroton - PO 25 mg DAILY [facility] Administration Diphenhydramine HCl 50 mg 11/16/18 11:52 11/19/18 22:43 Benadryl - PO 50 mg Q6H PRN Administration FOR ITCHING Guaifenesin 600 mg 11/13/18 12:15 11/21/18 09:59 Mucinex - PO 600 mg BID [facility] Administration Insulin Aspart 1 vial 11/12/18 16:30 11/21/18 06:38 Novolog Vial Sliding Scale - SQ 4 units ACHS [facility] Administration Protocol Insulin Detemir 14 units 11/17/18 11:49 11/20/18 21:52 Levemir Vial SQ 14 units HS [facility] Administration Metformin HCl 1,000 mg 11/12/18 16:30 11/21/18 06:43 Glucophage - PO 1,000 mg BID@0700,1630 [facility] Administration Methylprednisolone Sodium Succinate 40 mg 11/20/18 16:00 11/21/18 06:38 Solu-Medrol - IVPUSH 40 mg TID [facility] Administration Montelukast Sodium 10 mg 11/13/18 22:00 11/20/18 21:36 Singulair - PO 10 mg HS [facility] Administration Nystatin 500,000 units 11/13/18 14:00 11/21/18 06:37 Nystatin Oral Suspension - PO 500,000 units TID [facility] Administration Nystatin 1 applic 11/16/18 13:30 11/21/18 10:10 Mycostatin Cream - TP 1 applic BID [facility] Administration Pantoprazole Sodium 40 mg 11/13/18 10:00 11/21/18 10:00 Protonix - PO 40 mg DAILY [facility] Administration Valsartan 320 mg 11/13/18 10:00 11/21/18 09:59 Diovan - PO 320 mg DAILY [facility] Administration Laboratory Results - last 24 hr 11/20/18 11/20/18 11/21/18 16:23 21:51 06:36 POC Glucometer 204 268 222 S1 S2 RRR Lungs ronchi+ decreased Abd - soft, NT edema 1+ today PLAN slowly taper Solu-Medrol nebs standing and prn continue with meds lasix prn iv antibiotics completed Problem List - Problems (1) Asthma exacerbation Code(s): J45.901 - UNSPECIFIED ASTHMA WITH (ACUTE) EXACERBATION Qualifiers: Asthma severity: mild Asthma persistence: unspecified Qualified Code(s): J45.901 - Unspecified asthma with (acute) exacerbation (2) Asthma exacerbation in COPD Code(s): J44.1 - CHRONIC OBSTRUCTIVE PULMONARY DISEASE W (ACUTE) EXACERBATION; J45.901 - UNSPECIFIED ASTHMA WITH (ACUTE) EXACERBATION (3) COPD exacerbation Code(s): J44.1 - CHRONIC OBSTRUCTIVE PULMONARY DISEASE W (ACUTE) EXACERBATION (4) Diabetes Code(s): E11.9 - TYPE 2 DIABETES MELLITUS WITHOUT COMPLICATIONS (5) Diastolic CHF Code(s): I50.30 - UNSPECIFIED DIASTOLIC (CONGESTIVE) HEART FAILURE
--- NOTE | 2018-11-21 13:42 | PN ---
Progress Note, Physician History of Present Illness: pulmonary alert,feeling better,-resp distress,less wheezes - Current Medication List Current Medications: Active Medications Al Hydroxide/Mg Hydroxide (Mylanta Oral Suspension -) 30 ml PO Q6H PRN PRN Reason: DYSPEPSIA Last Admin: 11/21/18 10:09 Dose: 30 ml Albuterol Sulfate (Ventolin 0.083% Nebulizer Soln -) 1 amp NEB Q4H PRN PRN Reason: SHORT OF BREATH/WHEEZING Last Admin: 11/13/18 11:00 Dose: 1 amp Albuterol/Ipratropium (Duoneb -) 1 amp NEB RQID [facility] Last Admin: 11/21/18 11:29 Dose: 1 amp Amlodipine Besylate (Norvasc -) 5 mg PO DAILY [facility] Last Admin: 11/21/18 10:00 Dose: 5 mg Atorvastatin Calcium (Lipitor -) 20 mg PO HS [facility] Last Admin: 11/20/18 21:36 Dose: 20 mg Budesonide/Formoterol Fumarate (Symbicort 160/4.5mcg -) 2 puff IH BID [facility] Last Admin: 11/21/18 09:59 Dose: 2 puff Calamine (Calamine 8% Topical Lotion -) 1 applic TP QID PRN PRN Reason: FOR ITCHING Last Admin: 11/16/18 13:12 Dose: 1 applic Chlorthalidone (Hygroton -) 25 mg PO DAILY [facility] Last Admin: 11/21/18 10:01 Dose: 25 mg Diphenhydramine HCl (Benadryl -) 50 mg PO Q6H PRN PRN Reason: FOR ITCHING Last Admin: 11/19/18 22:43 Dose: 50 mg Guaifenesin (Mucinex -) 600 mg PO BID [facility] Last Admin: 11/21/18 09:59 Dose: 600 mg Insulin Aspart (Novolog Vial Sliding Scale -) 1 vial SQ [facility]; Protocol Last Admin: 11/21/18 06:38 Dose: 4 units Insulin Detemir (Levemir Vial) 14 units SQ HS [facility] Last Admin: 11/20/18 21:52 Dose: 14 units Metformin HCl (Glucophage -) 1,000 mg PO BID@0700,1630 [facility] Last Admin: 11/21/18 06:43 Dose: 1,000 mg Methylprednisolone Sodium Succinate (Solu-Medrol -) 40 mg IVPUSH BID [facility] Montelukast Sodium (Singulair -) 10 mg PO HS [facility] Last Admin: 11/20/18 21:36 Dose: 10 mg Nystatin (Nystatin Oral Suspension -) 500,000 units PO TID [facility] Last Admin: 11/21/18 06:37 Dose: 500,000 units Nystatin (Mycostatin Cream -) 1 applic TP BID [facility] Last Admin: 11/21/18 10:10 Dose: 1 applic Pantoprazole Sodium (Protonix -) 40 mg PO DAILY [facility] Last Admin: 11/21/18 10:00 Dose: 40 mg Valsartan (Diovan -) 320 mg PO DAILY [facility] Last Admin: 11/21/18 09:59 Dose: 320 mg - Objective Vital Signs: Vital Signs Temperature 97.8 F 11/21/18 05:00 Pulse Rate 80 11/21/18 05:00 Respiratory Rate 20 11/20/18 21:00 Blood Pressure 136/68 11/21/18 05:00 O2 Sat by Pulse Oximetry (%) 97 11/20/18 21:00 Constitutional: Yes: Well Nourished, Calm Eyes: Yes: WNL HENT: Yes: WNL Neck: Yes: WNL Cardiovascular: Yes: Regular Rate and Rhythm, S1, S2 Respiratory: Yes: Wheezes (less wheezes) Gastrointestinal: Yes: Normal Bowel Sounds, Soft Extremities: Yes: WNL Edema: Yes Labs: Problem List - Problems (1) Asthma exacerbation Code(s): J45.901 - UNSPECIFIED ASTHMA WITH (ACUTE) EXACERBATION Qualifiers: Asthma severity: mild Asthma persistence: unspecified Qualified Code(s): J45.901 - Unspecified asthma with (acute) exacerbation (2) COPD exacerbation Code(s): J44.1 - CHRONIC OBSTRUCTIVE PULMONARY DISEASE W (ACUTE) EXACERBATION (3) Dyspnea Code(s): R06.00 - DYSPNEA, UNSPECIFIED (4) Hypercholesteremia Code(s): E78.0 - PURE HYPERCHOLESTEROLEMIA * DO NOT USE * (5) Hypertension Code(s): I10 - ESSENTIAL (PRIMARY) HYPERTENSION Assessment/Plan IMP MODERATE-SEVERE CHRONIC PERSISTENT ASTHMA WITH ACUTE EXACERBATION IMPROVING HTN DM ANXIETY ANEMIA PLAN STEROID TAPER INHALED BRONCHODILATORS O2 MONITOR PEAK FLOW SERUM IGE LEVEL ,ALPHA-1 ANTI-TRYPSIN LEVEL OUTPATIENT CHEST PT DR BROWN Problem List - Problems (1) Asthma exacerbation Code(s): J45.901 - UNSPECIFIED ASTHMA WITH (ACUTE) EXACERBATION Qualifiers: Asthma severity: mild Asthma persistence: unspecified Qualified Code(s): J45.901 - Unspecified asthma with (acute) exacerbation (2) COPD exacerbation Code(s): J44.1 - CHRONIC OBSTRUCTIVE PULMONARY DISEASE W (ACUTE) EXACERBATION (3) Dyspnea Code(s): R06.00 - DYSPNEA, UNSPECIFIED (4) Hypercholesteremia Code(s): E78.0 - PURE HYPERCHOLESTEROLEMIA * DO NOT USE *
[2018-11-21] MEDS: ATORVASTATIN CA 20 MG TABLET (FP) PO SCH (21:50)
[2018-11-21] MEDS: INSULIN (LEVEMIR) 100 UNITS/ML UNITS SQ SCH (21:50)
[2018-11-21] MEDS: MONTELUKAST NA 10 MG TABLET PO SCH (21:51)
[2018-11-22] MEDS ORDERED: PT OWN MED DRAWER 7, Y5N ONE
[2018-11-22] MEDS: diphenhydrAMINE HCL 25 MG CAPSULE (FP) PO PRN ×2 (00:13→23:47)
[2018-11-22] MEDS: metFORMIN HCL 500 MG TABLET (FP) PO SCH ×2 (06:46→16:42)
[2018-11-22] MEDS: NYSTATIN 500,000 UNITS/5 ML SUSPENSION PO SCH ×3 (06:46→21:31)
[2018-11-22] MEDS: INSULIN SLIDING SCALE (NOVOLOG) 1 VIAL SQ SCH ×4 (06:47→21:31)
[2018-11-22] MEDS: ALBUTEROL SO4 2.5/IPRATROPIUM 0.5 INH SOL 3 ML VIAL.NEB. NEB SCH ×4 (08:00→20:45)
[2018-11-22] MEDS: guaiFENesin 600 MG TABLET.ER (FP) PO SCH ×2 (10:33→21:30)
[2018-11-22] MEDS: amLODIPine BESYLATE 5 MG TABLET (FP) PO SCH (10:33)
[2018-11-22] MEDS: CHLORTHALIDONE 25 MG TABLET PO SCH (10:33)
[2018-11-22] MEDS: VALSARTAN 160 MG TABLET (UD) PO SCH (10:33)
[2018-11-22] MEDS: MAG HYDROX/AL HYDROX/SIMETH 30 ML UNIT-DOSE CUP PO PRN (10:34)
[2018-11-22] MEDS: NYSTATIN 100,000 UNIT/GM TOPICAL CREAM 15 GM TUBE TP SCH ×2 (10:34→21:31)
[2018-11-22] MEDS: methylPREDNISolone NA SUCC 40 MG/1 ML VIAL IVPUSH SCH ×2 (10:34→21:31)
[2018-11-22] MEDS: PANTOPRAZOLE 40 MG TABLET (FP) PO SCH (10:34)
[2018-11-22] MEDS: BUDESONIDE/FORMETEROL FUMARATE 160/4.5 mcg INHALER IH SCH ×2 (10:34→21:31)
--- NOTE | 2018-11-22 12:15 | PN ---
Progress Note, Physician History of Present Illness: 87 Y F, with PMH of asthma/COPD, HTN, anxiety, anemia, and DM, presents for asthma exacerbation for 1 month. Patient was admitted for this complaint last month, and was discharged 3 weeks ago with Zpack and an increasing dose of prednisone (recently increased to 40 2x a day 2 days ago). She notes no change in her symptoms since her discharge, and Dr. Sanchez advised she come to the ED for solumedrol. She endorses associated cough, which was productive of green sputum but is now white and bilateral LE edema (L>R). She was intubated once over 25 years ago, and her current peak flow is 200 (highest was 300). She denies tobacco use, but notes many people in her building smoke. Denies fever, chills, diarrhea, chest pain, sudden weight loss. Pt is still wheezing Decreased SOB - Current Medication List Current Medications: Active Medications Al Hydroxide/Mg Hydroxide (Mylanta Oral Suspension -) 30 ml PO Q6H PRN PRN Reason: DYSPEPSIA Last Admin: 11/22/18 10:34 Dose: 30 ml Albuterol Sulfate (Ventolin 0.083% Nebulizer Soln -) 1 amp NEB Q4H PRN PRN Reason: SHORT OF BREATH/WHEEZING Last Admin: 11/13/18 11:00 Dose: 1 amp Albuterol/Ipratropium (Duoneb -) 1 amp NEB RQID [facility] Last Admin: 11/22/18 12:00 Dose: 1 amp Amlodipine Besylate (Norvasc -) 5 mg PO DAILY [facility] Last Admin: 11/22/18 10:33 Dose: 5 mg Atorvastatin Calcium (Lipitor -) 20 mg PO HS [facility] Last Admin: 11/21/18 21:50 Dose: 20 mg Budesonide/Formoterol Fumarate (Symbicort 160/4.5mcg -) 2 puff IH BID [facility] Last Admin: 11/22/18 10:34 Dose: 2 puff Calamine (Calamine 8% Topical Lotion -) 1 applic TP QID PRN PRN Reason: FOR ITCHING Last Admin: 11/16/18 13:12 Dose: 1 applic Chlorthalidone (Hygroton -) 25 mg PO DAILY [facility] Last Admin: 11/22/18 10:33 Dose: 25 mg Diphenhydramine HCl (Benadryl -) 50 mg PO Q6H PRN PRN Reason: FOR ITCHING Last Admin: 11/22/18 00:13 Dose: 50 mg Guaifenesin (Mucinex -) 600 mg PO BID [facility] Last Admin: 11/22/18 10:33 Dose: 600 mg Insulin Aspart (Novolog Vial Sliding Scale -) 1 vial SQ [facility] REPLACED BY [facility]; Protocol Last Admin: 11/22/18 10:42 Dose: 2 units Insulin Detemir (Levemir Vial) 14 units SQ [facility] Last Admin: 11/21/18 21:50 Dose: 14 units Metformin HCl (Glucophage -) 1,000 mg PO BID@0700,1630 [facility] Last Admin: 11/22/18 06:46 Dose: 1,000 mg Methylprednisolone Sodium Succinate (Solu-Medrol -) 40 mg IVPUSH BID [facility] Last Admin: 11/22/18 10:34 Dose: 40 mg Montelukast Sodium (Singulair -) 10 mg PO [facility] Last Admin: 11/21/18 21:51 Dose: 10 mg Nystatin (Nystatin Oral Suspension -) 500,000 units PO TID [facility] Last Admin: 11/22/18 06:46 Dose: 500,000 units Nystatin (Mycostatin Cream -) 1 applic TP BID [facility] Last Admin: 11/22/18 10:34 Dose: 1 applic Pantoprazole Sodium (Protonix -) 40 mg PO DAILY [facility] Last Admin: 11/22/18 10:34 Dose: 40 mg Valsartan (Diovan -) 320 mg PO DAILY [facility] Last Admin: 11/22/18 10:33 Dose: 320 mg - Objective Vital Signs: Vital Signs Temperature 98.5 F 11/22/18 09:26 Pulse Rate 87 11/22/18 09:26 Respiratory Rate 20 11/22/18 09:26 Blood Pressure 148/78 11/22/18 09:26 O2 Sat by Pulse Oximetry (%) 96 11/22/18 09:00 Constitutional: Yes: No Distress Eyes: Yes: Conjunctiva Clear, EOM Intact HENT: Yes: Atraumatic, Normocephalic Neck: Yes: Supple, Trachea Midline Cardiovascular: Yes: Regular Rate and Rhythm, S1, S2 Respiratory: Yes: Regular, CTA Bilaterally Gastrointestinal: Yes: Normal Bowel Sounds, Soft Edema: No Peripheral Pulses WNL: Yes Labs: CBC, BMP 11/18/18 06:50 11/18/18 06:50 Problem List - Problems (1) Asthma exacerbation Code(s): J45.901 - UNSPECIFIED ASTHMA WITH (ACUTE) EXACERBATION Qualifiers: Asthma severity: mild Asthma persistence: unspecified Qualified Code(s): J45.901 - Unspecified asthma with (acute) exacerbation (2) Asthma exacerbation in COPD Code(s): J44.1 - CHRONIC OBSTRUCTIVE PULMONARY DISEASE W (ACUTE) EXACERBATION; J45.901 - UNSPECIFIED ASTHMA WITH (ACUTE) EXACERBATION (3) Diabetes Code(s): E11.9 - TYPE 2 DIABETES MELLITUS WITHOUT COMPLICATIONS (4) Diastolic CHF Code(s): I50.30 - UNSPECIFIED DIASTOLIC (CONGESTIVE) HEART FAILURE Assessment/Plan (1) Asthma exacerbation Code(s): J45.901 - UNSPECIFIED ASTHMA WITH (ACUTE) EXACERBATION Qualifiers: Asthma severity: mild Asthma persistence: unspecified Qualified Code(s): J45.901 - Unspecified asthma with (acute) exacerbation (2) Asthma exacerbation in COPD Code(s): J44.1 - CHRONIC OBSTRUCTIVE PULMONARY DISEASE W (ACUTE) EXACERBATION; J45.901 - UNSPECIFIED ASTHMA WITH (ACUTE) EXACERBATION (3) COPD exacerbation Code(s): J44.1 - CHRONIC OBSTRUCTIVE PULMONARY DISEASE W (ACUTE) EXACERBATION (4) Diabetes Code(s): E11.9 - TYPE 2 DIABETES MELLITUS WITHOUT COMPLICATIONS (5) Diastolic CHF Code(s): I50.30 - UNSPECIFIED DIASTOLIC (CONGESTIVE) HEART FAILURE
--- NOTE | 2018-11-22 13:24 | PN ---
Progress Note, Physician History of Present Illness: pulmonary alert,oob-chair,feeling better,dyspnea improving,less wheezes - Current Medication List Current Medications: Active Medications Al Hydroxide/Mg Hydroxide (Mylanta Oral Suspension -) 30 ml PO Q6H PRN PRN Reason: DYSPEPSIA Last Admin: 11/22/18 10:34 Dose: 30 ml Albuterol Sulfate (Ventolin 0.083% Nebulizer Soln -) 1 amp NEB Q4H PRN PRN Reason: SHORT OF BREATH/WHEEZING Last Admin: 11/13/18 11:00 Dose: 1 amp Albuterol/Ipratropium (Duoneb -) 1 amp NEB RQID [facility] Last Admin: 11/22/18 12:00 Dose: 1 amp Amlodipine Besylate (Norvasc -) 5 mg PO DAILY [facility] Last Admin: 11/22/18 10:33 Dose: 5 mg Atorvastatin Calcium (Lipitor -) 20 mg PO HS [facility] Last Admin: 11/21/18 21:50 Dose: 20 mg Budesonide/Formoterol Fumarate (Symbicort 160/4.5mcg -) 2 puff IH BID [facility] Last Admin: 11/22/18 10:34 Dose: 2 puff Calamine (Calamine 8% Topical Lotion -) 1 applic TP QID PRN PRN Reason: FOR ITCHING Last Admin: 11/16/18 13:12 Dose: 1 applic Chlorthalidone (Hygroton -) 25 mg PO DAILY [facility] Last Admin: 11/22/18 10:33 Dose: 25 mg Diphenhydramine HCl (Benadryl -) 50 mg PO Q6H PRN PRN Reason: FOR ITCHING Last Admin: 11/22/18 00:13 Dose: 50 mg Guaifenesin (Mucinex -) 600 mg PO BID [facility] Last Admin: 11/22/18 10:33 Dose: 600 mg Insulin Aspart (Novolog Vial Sliding Scale -) 1 vial SQ [facility]; Protocol Last Admin: 11/22/18 10:42 Dose: 2 units Insulin Detemir (Levemir Vial) 14 units SQ [facility] Last Admin: 11/21/18 21:50 Dose: 14 units Metformin HCl (Glucophage -) 1,000 mg PO BID@0700,1630 [facility] Last Admin: 11/22/18 06:46 Dose: 1,000 mg Methylprednisolone Sodium Succinate (Solu-Medrol -) 40 mg IVPUSH BID [facility] Last Admin: 11/22/18 10:34 Dose: 40 mg Montelukast Sodium (Singulair -) 10 mg PO HS [facility] Last Admin: 11/21/18 21:51 Dose: 10 mg Nystatin (Nystatin Oral Suspension -) 500,000 units PO TID [facility] Last Admin: 11/22/18 06:46 Dose: 500,000 units Nystatin (Mycostatin Cream -) 1 applic TP BID [facility] Last Admin: 11/22/18 10:34 Dose: 1 applic Pantoprazole Sodium (Protonix -) 40 mg PO DAILY [facility] Last Admin: 11/22/18 10:34 Dose: 40 mg Valsartan (Diovan -) 320 mg PO DAILY [facility] Last Admin: 11/22/18 10:33 Dose: 320 mg - Objective Vital Signs: Vital Signs Temperature 98.5 F 11/22/18 09:26 Pulse Rate 87 11/22/18 09:26 Respiratory Rate 20 11/22/18 09:26 Blood Pressure 148/78 11/22/18 09:26 O2 Sat by Pulse Oximetry (%) 96 11/22/18 09:00 Constitutional: Yes: Well Nourished, Calm Eyes: Yes: WNL HENT: Yes: WNL Neck: Yes: WNL Cardiovascular: Yes: Regular Rate and Rhythm, S1, S2 Respiratory: Yes: Wheezes (few scattered wheezes) Gastrointestinal: Yes: Normal Bowel Sounds, Soft Extremities: Yes: WNL Edema: No Labs: Problem List - Problems (1) Asthma exacerbation Code(s): J45.901 - UNSPECIFIED ASTHMA WITH (ACUTE) EXACERBATION Qualifiers: Asthma severity: mild Asthma persistence: unspecified Qualified Code(s): J45.901 - Unspecified asthma with (acute) exacerbation (2) COPD exacerbation Code(s): J44.1 - CHRONIC OBSTRUCTIVE PULMONARY DISEASE W (ACUTE) EXACERBATION (3) Dyspnea Code(s): R06.00 - DYSPNEA, UNSPECIFIED (4) Hypercholesteremia Code(s): E78.0 - PURE HYPERCHOLESTEROLEMIA * DO NOT USE * (5) Hypertension Code(s): I10 - ESSENTIAL (PRIMARY) HYPERTENSION Assessment/Plan IMP MODERATE-SEVERE CHRONIC PERSISTENT ASTHMA WITH ACUTE EXACERBATION IMPROVING HTN DM ANXIETY ANEMIA PLAN STEROID TAPER INHALED BRONCHODILATORS O2 MONITOR PEAK FLOW CHEST PT [facility] DR BROWN Problem List - Problems (1) Asthma exacerbation Code(s): J45.901 - UNSPECIFIED ASTHMA WITH (ACUTE) EXACERBATION Qualifiers: Asthma severity: mild Asthma persistence: unspecified Qualified Code(s): J45.901 - Unspecified asthma with (acute) exacerbation (2) COPD exacerbation Code(s): J44.1 - CHRONIC OBSTRUCTIVE PULMONARY DISEASE W (ACUTE) EXACERBATION (3) Dyspnea Code(s): R06.00 - DYSPNEA, UNSPECIFIED (4) Hypercholesteremia Code(s): E78.0 - PURE HYPERCHOLESTEROLEMIA * DO NOT USE *
[2018-11-22] MEDS: MONTELUKAST NA 10 MG TABLET PO SCH (21:30)
[2018-11-22] MEDS: ATORVASTATIN CA 20 MG TABLET (FP) PO SCH (21:30)
[2018-11-22] MEDS: INSULIN (LEVEMIR) 100 UNITS/ML UNITS SQ SCH (21:30)
[2018-11-23] MEDS ORDERED: PT OWN MED DRAWER 7, Y5N ONE (05:32)
[2018-11-23] MEDS: NYSTATIN 500,000 UNITS/5 ML SUSPENSION PO SCH ×3 (06:09→21:38)
[2018-11-23] MEDS: metFORMIN HCL 500 MG TABLET (FP) PO SCH ×2 (06:09→16:11)
[2018-11-23] MEDS: INSULIN SLIDING SCALE (NOVOLOG) 1 VIAL SQ SCH ×4 (06:10→21:39)
[2018-11-23] MEDS: ALBUTEROL SO4 2.5/IPRATROPIUM 0.5 INH SOL 3 ML VIAL.NEB. NEB SCH (08:52)
[2018-11-23] MEDS: BUDESONIDE/FORMETEROL FUMARATE 160/4.5 mcg INHALER IH SCH ×2 (09:46→21:40)
[2018-11-23] MEDS: PANTOPRAZOLE 40 MG TABLET (FP) PO SCH (09:47)
[2018-11-23] MEDS: methylPREDNISolone NA SUCC 40 MG/1 ML VIAL IVPUSH SCH ×2 (09:47→21:39)
[2018-11-23] MEDS: amLODIPine BESYLATE 5 MG TABLET (FP) PO SCH (09:47)
[2018-11-23] MEDS: guaiFENesin 600 MG TABLET.ER (FP) PO SCH ×2 (09:47→21:38)
[2018-11-23] MEDS: VALSARTAN 160 MG TABLET (UD) PO SCH (09:47)
[2018-11-23] MEDS: NYSTATIN 100,000 UNIT/GM TOPICAL CREAM 15 GM TUBE TP SCH ×2 (09:47→21:39)
[2018-11-23] MEDS: CHLORTHALIDONE 25 MG TABLET PO SCH (09:58)
[2018-11-23] MEDS: MAG HYDROX/AL HYDROX/SIMETH 30 ML UNIT-DOSE CUP PO PRN (10:12)
--- NOTE | 2018-11-23 11:02 | PN ---
Progress Note, Physician History of Present Illness: pulmonary alert,still wheezing ,less dyspneic - Current Medication List Current Medications: Active Medications Al Hydroxide/Mg Hydroxide (Mylanta Oral Suspension -) 30 ml PO Q6H PRN PRN Reason: DYSPEPSIA Last Admin: 11/23/18 10:12 Dose: 30 ml Albuterol Sulfate (Ventolin 0.083% Nebulizer Soln -) 1 amp NEB Q4H PRN PRN Reason: SHORT OF BREATH/WHEEZING Last Admin: 11/13/18 11:00 Dose: 1 amp Albuterol/Ipratropium (Duoneb -) 1 amp NEB RQID [facility] Last Admin: 11/23/18 08:52 Dose: 1 amp Amlodipine Besylate (Norvasc -) 5 mg PO DAILY [facility] Last Admin: 11/23/18 09:47 Dose: 5 mg Atorvastatin Calcium (Lipitor -) 20 mg PO HS [facility] Last Admin: 11/22/18 21:30 Dose: 20 mg Budesonide/Formoterol Fumarate (Symbicort 160/4.5mcg -) 2 puff IH BID [facility] Last Admin: 11/23/18 09:46 Dose: 2 puff Calamine (Calamine 8% Topical Lotion -) 1 applic TP QID PRN PRN Reason: FOR ITCHING Last Admin: 11/16/18 13:12 Dose: 1 applic Chlorthalidone (Hygroton -) 25 mg PO DAILY [facility] Last Admin: 11/23/18 09:58 Dose: 25 mg Diphenhydramine HCl (Benadryl -) 50 mg PO Q6H PRN PRN Reason: FOR ITCHING Last Admin: 11/22/18 23:47 Dose: 50 mg Guaifenesin (Mucinex -) 600 mg PO BID [facility] Last Admin: 11/23/18 09:47 Dose: 600 mg Insulin Aspart (Novolog Vial Sliding Scale -) 1 vial SQ [facility]; Protocol Last Admin: 11/23/18 10:07 Dose: Not Given Insulin Detemir (Levemir Vial) 14 units SQ [facility] Last Admin: 11/22/18 21:30 Dose: 14 units Metformin HCl (Glucophage -) 1,000 mg PO BID@0700,1630 [facility] Last Admin: 11/23/18 06:09 Dose: 1,000 mg Methylprednisolone Sodium Succinate (Solu-Medrol -) 40 mg IVPUSH BID [facility] Last Admin: 11/23/18 09:47 Dose: 40 mg Montelukast Sodium (Singulair -) 10 mg PO HS [facility] Last Admin: 11/22/18 21:30 Dose: 10 mg Nystatin (Nystatin Oral Suspension -) 500,000 units PO TID [facility] Last Admin: 11/23/18 06:09 Dose: 500,000 units Nystatin (Mycostatin Cream -) 1 applic TP BID [facility] Last Admin: 11/23/18 09:47 Dose: 1 applic Pantoprazole Sodium (Protonix -) 40 mg PO DAILY [facility] Last Admin: 11/23/18 09:47 Dose: 40 mg Valsartan (Diovan -) 320 mg PO DAILY [facility] Last Admin: 11/23/18 09:47 Dose: 320 mg - Objective Vital Signs: Vital Signs Temperature 98.1 F 11/23/18 05:42 Pulse Rate 83 11/23/18 05:42 Respiratory Rate 20 11/23/18 05:42 Blood Pressure 134/65 11/23/18 05:42 O2 Sat by Pulse Oximetry (%) 96 11/22/18 21:00 Constitutional: Yes: Well Nourished, Calm Eyes: Yes: WNL HENT: Yes: WNL Neck: Yes: WNL Cardiovascular: Yes: Regular Rate and Rhythm, S1, S2 Respiratory: Yes: Wheezes (scattered yuridia wheezes) Gastrointestinal: Yes: Normal Bowel Sounds, Soft Extremities: Yes: WNL Edema: Yes Labs: CBC, BMP Problem List - Problems (1) Asthma exacerbation Code(s): J45.901 - UNSPECIFIED ASTHMA WITH (ACUTE) EXACERBATION Qualifiers: Asthma severity: mild Asthma persistence: unspecified Qualified Code(s): J45.901 - Unspecified asthma with (acute) exacerbation (2) COPD exacerbation Code(s): J44.1 - CHRONIC OBSTRUCTIVE PULMONARY DISEASE W (ACUTE) EXACERBATION (3) Dyspnea Code(s): R06.00 - DYSPNEA, UNSPECIFIED (4) Hypercholesteremia Code(s): E78.0 - PURE HYPERCHOLESTEROLEMIA * DO NOT USE * (5) Hypertension Code(s): I10 - ESSENTIAL (PRIMARY) HYPERTENSION Assessment/Plan IMP MODERATE-SEVERE CHRONIC PERSISTENT ASTHMA WITH ACUTE EXACERBATION IMPROVING HTN DM ANXIETY ANEMIA PLAN STEROID SAME DOSE INHALED BRONCHODILATORS O2 MONITOR PEAK FLOW CHEST PT [facility] EVALUATION DR BROWN Problem List - Problems (1) Asthma exacerbation Code(s): J45.901 - UNSPECIFIED ASTHMA WITH (ACUTE) EXACERBATION Qualifiers: Asthma severity: mild Asthma persistence: unspecified Qualified Code(s): J45.901 - Unspecified asthma with (acute) exacerbation (2) COPD exacerbation Code(s): J44.1 - CHRONIC OBSTRUCTIVE PULMONARY DISEASE W (ACUTE) EXACERBATION (3) Dyspnea Code(s): R06.00 - DYSPNEA, UNSPECIFIED (4) Hypercholesteremia Code(s): E78.0 - PURE HYPERCHOLESTEROLEMIA * DO NOT USE *
--- NOTE | 2018-11-23 17:54 | PN ---
Progress Note, Physician History of Present Illness: 87 Y F, with PMH of asthma/COPD, HTN, anxiety, anemia, and DM, presents for asthma exacerbation for 1 month. Patient was admitted for this complaint last month, and was discharged 3 weeks ago with Zpack and an increasing dose of prednisone (recently increased to 40 2x a day 2 days ago). She notes no change in her symptoms since her discharge, and Dr. Sanchez advised she come to the ED for solumedrol. She endorses associated cough, which was productive of green sputum but is now white and bilateral LE edema (L>R). She was intubated once over 25 years ago, and her current peak flow is 200 (highest was 300). She denies tobacco use, but notes many people in her building smoke. Denies fever, chills, diarrhea, chest pain, sudden weight loss. Pt is still wheezing Decreased SOB Pt is relatively better - Current Medication List Current Medications: Active Medications Al Hydroxide/Mg Hydroxide (Mylanta Oral Suspension -) 30 ml PO Q6H PRN PRN Reason: DYSPEPSIA Last Admin: 11/23/18 10:12 Dose: 30 ml Albuterol Sulfate (Ventolin 0.083% Nebulizer Soln -) 1 amp NEB Q4H PRN PRN Reason: SHORT OF BREATH/WHEEZING Last Admin: 11/13/18 11:00 Dose: 1 amp Amlodipine Besylate (Norvasc -) 5 mg PO DAILY [facility] Last Admin: 11/23/18 09:47 Dose: 5 mg Atorvastatin Calcium (Lipitor -) 20 mg PO HS [facility] Last Admin: 11/22/18 21:30 Dose: 20 mg Budesonide/Formoterol Fumarate (Symbicort 160/4.5mcg -) 2 puff IH BID [facility] Last Admin: 11/23/18 09:46 Dose: 2 puff Calamine (Calamine 8% Topical Lotion -) 1 applic TP QID PRN PRN Reason: FOR ITCHING Last Admin: 11/16/18 13:12 Dose: 1 applic Chlorthalidone (Hygroton -) 25 mg PO DAILY [facility] Last Admin: 11/23/18 09:58 Dose: 25 mg Diphenhydramine HCl (Benadryl -) 50 mg PO Q6H PRN PRN Reason: FOR ITCHING Last Admin: 11/22/18 23:47 Dose: 50 mg Guaifenesin (Mucinex -) 600 mg PO BID [facility] Last Admin: 11/23/18 09:47 Dose: 600 mg Insulin Aspart (Novolog Vial Sliding Scale -) 1 vial SQ [facility]; Protocol Last Admin: 11/23/18 16:13 Dose: 6 units Insulin Detemir (Levemir Vial) 14 units SQ HS [facility] Last Admin: 11/22/18 21:30 Dose: 14 units Metformin HCl (Glucophage -) 1,000 mg PO BID@0700,1630 [facility] Last Admin: 11/23/18 16:11 Dose: 1,000 mg Methylprednisolone Sodium Succinate (Solu-Medrol -) 40 mg IVPUSH BID [facility] Last Admin: 11/23/18 09:47 Dose: 40 mg Montelukast Sodium (Singulair -) 10 mg PO HS [facility] Last Admin: 11/22/18 21:30 Dose: 10 mg Nystatin (Nystatin Oral Suspension -) 500,000 units PO TID [facility] Last Admin: 11/23/18 14:03 Dose: Not Given Nystatin (Mycostatin Cream -) 1 applic TP BID [facility] Last Admin: 11/23/18 09:47 Dose: 1 applic Pantoprazole Sodium (Protonix -) 40 mg PO DAILY [facility] Last Admin: 11/23/18 09:47 Dose: 40 mg Valsartan (Diovan -) 320 mg PO DAILY [facility] Last Admin: 11/23/18 09:47 Dose: 320 mg Zolpidem Tartrate (Ambien -) 5 mg PO PRN PRN Reason: INSOMNIA - Objective Vital Signs: Vital Signs Temperature 97.7 F 11/23/18 13:37 Pulse Rate 92 H 11/23/18 13:37 Respiratory Rate 20 11/23/18 13:37 Blood Pressure 115/53 L 11/23/18 13:37 O2 Sat by Pulse Oximetry (%) 97 11/23/18 09:00 Constitutional: Yes: No Distress, Calm Eyes: Yes: Conjunctiva Clear, EOM Intact HENT: Yes: Atraumatic, Normocephalic Neck: Yes: Supple, Trachea Midline Cardiovascular: Yes: Regular Rate and Rhythm, S1, S2 Respiratory: Yes: Regular, CTA Bilaterally Gastrointestinal: Yes: Normal Bowel Sounds, Soft Edema: No Peripheral Pulses WNL: Yes Neurological: Yes: Alert, Oriented, Cran Nerves II-XII Intact Labs: CBC, BMP 11/18/18 06:50 11/18/18 06:50 Problem List - Problems (1) Asthma exacerbation Code(s): J45.901 - UNSPECIFIED ASTHMA WITH (ACUTE) EXACERBATION Qualifiers: Asthma severity: mild Asthma persistence: unspecified Qualified Code(s): J45.901 - Unspecified asthma with (acute) exacerbation (2) Asthma exacerbation in COPD Code(s): J44.1 - CHRONIC OBSTRUCTIVE PULMONARY DISEASE W (ACUTE) EXACERBATION; J45.901 - UNSPECIFIED ASTHMA WITH (ACUTE) EXACERBATION (3) Diabetes Code(s): E11.9 - TYPE 2 DIABETES MELLITUS WITHOUT COMPLICATIONS (4) Diastolic CHF Code(s): I50.30 - UNSPECIFIED DIASTOLIC (CONGESTIVE) HEART FAILURE Assessment/Plan (1) Asthma exacerbation Code(s): J45.901 - UNSPECIFIED ASTHMA WITH (ACUTE) EXACERBATION Qualifiers: Asthma severity: mild Asthma persistence: unspecified Qualified Code(s): J45.901 - Unspecified asthma with (acute) exacerbation (2) Asthma exacerbation in COPD Code(s): J44.1 - CHRONIC OBSTRUCTIVE PULMONARY DISEASE W (ACUTE) EXACERBATION; J45.901 - UNSPECIFIED ASTHMA WITH (ACUTE) EXACERBATION (3) COPD exacerbation Code(s): J44.1 - CHRONIC OBSTRUCTIVE PULMONARY DISEASE W (ACUTE) EXACERBATION (4) Diabetes Code(s): E11.9 - TYPE 2 DIABETES MELLITUS WITHOUT COMPLICATIONS (5) Diastolic CHF Code(s): I50.30 - UNSPECIFIED DIASTOLIC (CONGESTIVE) HEART FAILURE Pt is relatively better Less SOB
[2018-11-23] MEDS: ALBUTEROL SO4 0.083% IH SOL 2.5 MG/3 ML VIAL.NEB. NEB PRN (20:19)
[2018-11-23] MEDS: INSULIN (LEVEMIR) 100 UNITS/ML UNITS SQ SCH (21:37)
[2018-11-23] MEDS: ATORVASTATIN CA 20 MG TABLET (FP) PO SCH (21:38)
[2018-11-23] MEDS: MONTELUKAST NA 10 MG TABLET PO SCH (21:38)
[2018-11-23] MEDS: ZOLPIDEM TARTRATE 5 MG TABLET PO PRN (23:14)
[2018-11-24] MEDS: INSULIN SLIDING SCALE (NOVOLOG) 1 VIAL SQ SCH ×4 (06:29→21:29)
[2018-11-24] MEDS: NYSTATIN 500,000 UNITS/5 ML SUSPENSION PO SCH ×3 (06:29→21:29)
[2018-11-24] MEDS: metFORMIN HCL 500 MG TABLET (FP) PO SCH ×2 (06:29→16:47)
[2018-11-24] MEDS: PANTOPRAZOLE 40 MG TABLET (FP) PO SCH (09:21)
[2018-11-24] MEDS: VALSARTAN 160 MG TABLET (UD) PO SCH (09:21)
[2018-11-24] MEDS: guaiFENesin 600 MG TABLET.ER (FP) PO SCH ×2 (09:21→21:28)
[2018-11-24] MEDS: amLODIPine BESYLATE 5 MG TABLET (FP) PO SCH (09:21)
[2018-11-24] MEDS: methylPREDNISolone NA SUCC 40 MG/1 ML VIAL IVPUSH SCH ×2 (09:22→21:29)
[2018-11-24] MEDS: ALBUTEROL SO4 0.083% IH SOL 2.5 MG/3 ML VIAL.NEB. NEB PRN (09:25)
[2018-11-24] MEDS: BUDESONIDE/FORMETEROL FUMARATE 160/4.5 mcg INHALER IH SCH ×2 (09:32→21:29)
[2018-11-24] MEDS ORDERED: PT OWN MED DRAWER 7, Y5N ONE (09:56)
[2018-11-24] MEDS: CHLORTHALIDONE 25 MG TABLET PO SCH (09:57)
--- NOTE | 2018-11-24 10:38 | PN ---
Progress Note (short form) - Note Progress Note: pt seen/ examined better still wheezing all f/u noted requesting meds for vaginal itching and constipation no distress chart reviewed Vital Signs Temp 98.0 F 11/24/18 06:04 Pulse 88 11/24/18 06:04 Resp 20 11/24/18 06:04 BP 127/61 11/24/18 06:04 Pulse Ox 97 11/23/18 09:00 Intake & Output 11/23/18 11/23/18 11/24/18 11:59 23:59 11:59 Intake Total 250 950 Balance 250 950 Weight 163 lb 159 lb 2 oz Intake: Oral 250 950 Other: Voiding Method Toilet Toilet # Unmeasured Voids Void 3 3 Bowel Movement No No Weight Measurement Method Built in Bedscale Chair Scale Active Medications Al Hydroxide/Mg Hydroxide (Mylanta Oral Suspension -) 30 ml PO Q6H PRN PRN Reason: DYSPEPSIA Last Admin: 11/23/18 10:12 Dose: 30 ml Albuterol Sulfate (Ventolin 0.083% Nebulizer Soln -) 1 amp NEB Q4H PRN PRN Reason: SHORT OF BREATH/WHEEZING Last Admin: 11/23/18 20:19 Dose: 1 amp Amlodipine Besylate (Norvasc -) 5 mg PO DAILY [facility] Last Admin: 11/24/18 09:21 Dose: 5 mg Atorvastatin Calcium (Lipitor -) 20 mg PO [facility] Last Admin: 11/23/18 21:38 Dose: 20 mg Budesonide/Formoterol Fumarate (Symbicort 160/4.5mcg -) 2 puff IH BID [facility] Last Admin: 11/24/18 09:32 Dose: 2 puff Calamine (Calamine 8% Topical Lotion -) 1 applic TP QID PRN PRN Reason: FOR ITCHING Last Admin: 11/16/18 13:12 Dose: 1 applic Chlorthalidone (Hygroton -) 25 mg PO DAILY [facility] Last Admin: 11/24/18 09:57 Dose: 25 mg Diphenhydramine HCl (Benadryl -) 50 mg PO Q6H PRN PRN Reason: FOR ITCHING Last Admin: 11/22/18 23:47 Dose: 50 mg Guaifenesin (Mucinex -) 600 mg PO BID [facility] Last Admin: 11/24/18 09:21 Dose: 600 mg Insulin Aspart (Novolog Vial Sliding Scale -) 1 vial SQ [facility]; Protocol Last Admin: 11/24/18 06:29 Dose: 6 units Insulin Detemir (Levemir Vial) 14 units SQ HS [facility] Last Admin: 11/23/18 21:37 Dose: 14 units Metformin HCl (Glucophage -) 1,000 mg PO BID@0700,1630 [facility] Last Admin: 11/24/18 06:29 Dose: 1,000 mg Methylprednisolone Sodium Succinate (Solu-Medrol -) 40 mg IVPUSH BID [facility] Last Admin: 11/24/18 09:22 Dose: 40 mg Miconazole Nitrate (Monistat-7 Vaginal Suppository -) 100 mg PV HS [facility] Montelukast Sodium (Singulair -) 10 mg PO HS [facility] Last Admin: 11/23/18 21:38 Dose: 10 mg Nystatin (Nystatin Oral Suspension -) 500,000 units PO TID [facility] Last Admin: 11/24/18 06:29 Dose: 500,000 units Nystatin (Mycostatin Cream -) 1 applic TP BID [facility] Last Admin: 11/23/18 21:39 Dose: 1 applic Pantoprazole Sodium (Protonix -) 40 mg PO DAILY [facility] Last Admin: 11/24/18 09:21 Dose: 40 mg Polyethylene Glycol (Miralax (For Daily Use) -) 17 gm PO DAILY [facility] Valsartan (Diovan -) 320 mg PO DAILY [facility] Last Admin: 11/24/18 09:21 Dose: 320 mg Zolpidem Tartrate (Ambien -) 5 mg PO PRN PRN Reason: INSOMNIA Last Admin: 11/23/18 23:14 Dose: 5 mg CBC, BMP 11/18/18 06:50 11/18/18 06:50 Physical Exam. S1 S2 RRR Lungs -- Bilateral Wheezes Abd - soft, Ext- no edema PLAN Discussed Continue steroids Ambulate Miralax Monistat Discussed with nursing staff also no labs since 11/18/18-- will order Kev to evaluate for rehab will follow Problem List - Problems (1) Asthma exacerbation Code(s): J45.901 - UNSPECIFIED ASTHMA WITH (ACUTE) EXACERBATION Qualifiers: Asthma severity: mild Asthma persistence: unspecified Qualified Code(s): J45.901 - Unspecified asthma with (acute) exacerbation (2) Asthma exacerbation in COPD Code(s): J44.1 - CHRONIC OBSTRUCTIVE PULMONARY DISEASE W (ACUTE) EXACERBATION; J45.901 - UNSPECIFIED ASTHMA WITH (ACUTE) EXACERBATION (3) COPD exacerbation Code(s): J44.1 - CHRONIC OBSTRUCTIVE PULMONARY DISEASE W (ACUTE) EXACERBATION (4) Diabetes Code(s): E11.9 - TYPE 2 DIABETES MELLITUS WITHOUT COMPLICATIONS (5) Diastolic CHF Code(s): I50.30 - UNSPECIFIED DIASTOLIC (CONGESTIVE) HEART FAILURE
[2018-11-24] MEDS: POLYETHYLENE GLYCOL 3350 119 GM BTL PO SCH (10:48)
[2018-11-24] MEDS: NYSTATIN 100,000 UNIT/GM TOPICAL CREAM 15 GM TUBE TP SCH ×2 (11:27→21:29)
--- NOTE | 2018-11-24 11:34 | PN ---
Progress Note (short form) - Note Progress Note: PULMONARY Breathing better. Feels tired today. Less cough and wheezing. Vital Signs Period Temp Pulse Resp BP Sys/Stallings Pulse Ox Last 24 Hr 97.7 F-98.6 F 88-96 18-20 112-138/53-66 Gen: mildly tachypneic with speaking Heart: RRR Lung: scattered rhonchi, wheezes Abd: soft, nontender Ext: no edema CBC, BMP 11/18/18 06:50 11/18/18 06:50 Active Medications Al Hydroxide/Mg Hydroxide (Mylanta Oral Suspension -) 30 ml PO Q6H PRN PRN Reason: DYSPEPSIA Last Admin: 11/23/18 10:12 Dose: 30 ml Amlodipine Besylate (Norvasc -) 5 mg PO DAILY [facility] Last Admin: 11/24/18 09:21 Dose: 5 mg Atorvastatin Calcium (Lipitor -) 20 mg PO [facility] Last Admin: 11/23/18 21:38 Dose: 20 mg Budesonide/Formoterol Fumarate (Symbicort 160/4.5mcg -) 2 puff IH BID [facility] Last Admin: 11/24/18 09:32 Dose: 2 puff Calamine (Calamine 8% Topical Lotion -) 1 applic TP QID PRN PRN Reason: FOR ITCHING Last Admin: 11/16/18 13:12 Dose: 1 applic Chlorthalidone (Hygroton -) 25 mg PO DAILY [facility] Last Admin: 11/24/18 09:57 Dose: 25 mg Diphenhydramine HCl (Benadryl -) 50 mg PO Q6H PRN PRN Reason: FOR ITCHING Last Admin: 11/22/18 23:47 Dose: 50 mg Guaifenesin (Mucinex -) 600 mg PO BID [facility] Last Admin: 11/24/18 09:21 Dose: 600 mg Insulin Aspart (Novolog Vial Sliding Scale -) 1 vial SQ [facility]; Protocol Last Admin: 11/24/18 06:29 Dose: 6 units Insulin Detemir (Levemir Vial) 14 units SQ [facility] Last Admin: 11/23/18 21:37 Dose: 14 units Metformin HCl (Glucophage -) 1,000 mg PO BID@0700,1630 [facility] Last Admin: 11/24/18 06:29 Dose: 1,000 mg Methylprednisolone Sodium Succinate (Solu-Medrol -) 40 mg IVPUSH BID [facility] Last Admin: 11/24/18 09:22 Dose: 40 mg Miconazole Nitrate (Monistat-7 Vaginal Suppository -) 100 mg PV HS [facility] Montelukast Sodium (Singulair -) 10 mg PO HS [facility] Last Admin: 11/23/18 21:38 Dose: 10 mg Nystatin (Nystatin Oral Suspension -) 500,000 units PO TID [facility] Last Admin: 11/24/18 06:29 Dose: 500,000 units Nystatin (Mycostatin Cream -) 1 applic TP BID [facility] Last Admin: 11/24/18 11:27 Dose: 1 applic Pantoprazole Sodium (Protonix -) 40 mg PO DAILY [facility] Last Admin: 11/24/18 09:21 Dose: 40 mg Polyethylene Glycol (Miralax (For Daily Use) -) 17 gm PO DAILY [facility] Last Admin: 11/24/18 10:48 Dose: 17 gm Valsartan (Diovan -) 320 mg PO DAILY [facility] Last Admin: 11/24/18 09:21 Dose: 320 mg Zolpidem Tartrate (Ambien -) 5 mg PO HS PRN PRN Reason: INSOMNIA Last Admin: 11/23/18 23:14 Dose: 5 mg A/P Acute Asthma Exacerbation Moderate/Severe Persistent Asthma HTN DM Anxiety Anemia - can change steroids to PO prednisone in AM and taper as outpt - inhaled bronchodilators standing and PRN - O2 to keep SpO2>90% - monitor peak flow - singulair - DVT prophylaxis - for Angulo evaluation
[2018-11-24 12:03] LABS: BASO % 0.1 % (0-2.0); HEMATOCRIT 42.1 % (32.4-45.2); HEMOGLOBIN 13.7 GM/dL (10.7-15.3); LYMPH % 9.6 % (8-40); MCH 28.1 pg (25.7-33.7); MCHC 32.5 g/dl (32.0-36.0); MEAN CELL VOLUME 86.5 fl (80-96); MEAN PLT VOLUME 10.1 fl (7.5-11.1); MONO % 8.3 % (3.8-10.2); PLATELET COUNT 197 K/MM3 (134-434); RBC 4.87 M/mm3 (3.60-5.2); RDW 14.6 % (11.6-15.6); WHITE BLOOD COUNT 22.9 K/mm3 (4.0-10.0)
[2018-11-24 13:05] LABS: ALBUMIN 3.5 g/dl (3.4-5.0); BILIRUBIN,TOTAL 0.4 mg/dL (0.2-1); BLOOD UREA NITROGEN 39.9 mg/dL (7-18); CALCIUM 9.8 mg/dL (8.5-10.1); CREATININE 0.9 mg/dL (0.55-1.3); POTASSIUM 4.6 mmol/L (3.5-5.1); TOT PROT 6.1 g/dl (6.4-8.2)
--- NOTE | 2018-11-24 13:21 | PN ---
Progress Note, Physician History of Present Illness: The patient is an 87 Y black woman with PMH of asthma/COPD, diastolic CHF, DM, HTN, anxiety, anemia, and obesity, presents for "asthma exacerbation" for 1 month. Patient was admitted for this complaint last month, and was discharged 3 weeks ago with Zpack and an increasing dose of prednisone (recently increased to 40 2x a day 2 days ago). She notes no change in her symptoms since her discharge, and Dr. Sanchez advised she come to the ED for solumedrol. She endorses associated cough, which was productive of green sputum but is now white and bilateral LE edema (L>R). She was intubated once over 25 years ago, and her current peak flow is 200 (highest was 300). She denies tobacco use, but notes many people in her building smoke. Denies fever, chills, diarrhea, chest pain, sudden weight loss. Patient notes she also has thrush, with associated burning sensation in the throat (on Nystatin). Pt likes to "stay in shape"; she tries to walk 10,000-20,000 steps a day. Allergies: Oral and IV Iodinated Contrast, tetracyclines, shellfish Surgical History: Breast biopsy, tubal ligation Social History: Former smoker (quit 25 years ago). PCP: Dr. Mohini Sanchez Pulm: Dr. Perea - Current Medication List Current Medications: Active Medications Al Hydroxide/Mg Hydroxide (Mylanta Oral Suspension -) 30 ml PO Q6H PRN PRN Reason: DYSPEPSIA Last Admin: 11/23/18 10:12 Dose: 30 ml Amlodipine Besylate (Norvasc -) 5 mg PO DAILY [facility] Last Admin: 11/24/18 09:21 Dose: 5 mg Atorvastatin Calcium (Lipitor -) 20 mg PO HS [facility] Last Admin: 11/23/18 21:38 Dose: 20 mg Budesonide/Formoterol Fumarate (Symbicort 160/4.5mcg -) 2 puff IH BID [facility] Last Admin: 11/24/18 09:32 Dose: 2 puff Calamine (Calamine 8% Topical Lotion -) 1 applic TP QID PRN PRN Reason: FOR ITCHING Last Admin: 11/16/18 13:12 Dose: 1 applic Chlorthalidone (Hygroton -) 25 mg PO DAILY [facility] Last Admin: 11/24/18 09:57 Dose: 25 mg Diphenhydramine HCl (Benadryl -) 50 mg PO Q6H PRN PRN Reason: FOR ITCHING Last Admin: 11/22/18 23:47 Dose: 50 mg Guaifenesin (Mucinex -) 600 mg PO BID [facility] Last Admin: 11/24/18 09:21 Dose: 600 mg Insulin Aspart (Novolog Vial Sliding Scale -) [address] [facility]; Protocol Last Admin: 11/24/18 11:36 Dose: Not Given Insulin Detemir (Levemir Vial) 14 units SQ HS [facility] Last Admin: 11/23/18 21:37 Dose: 14 units Metformin HCl (Glucophage -) 1,000 mg PO BID@0700,1630 [facility] Last Admin: 11/24/18 06:29 Dose: 1,000 mg Methylprednisolone Sodium Succinate (Solu-Medrol -) 40 mg IVPUSH BID [facility] Last Admin: 11/24/18 09:22 Dose: 40 mg Miconazole Nitrate (Monistat-7 Vaginal Suppository -) 100 mg PV [facility] Montelukast Sodium (Singulair -) 10 mg PO HS [facility] Last Admin: 11/23/18 21:38 Dose: 10 mg Nystatin (Nystatin Oral Suspension -) 500,000 units PO TID [facility] Last Admin: 11/24/18 06:29 Dose: 500,000 units Nystatin (Mycostatin Cream -) 1 applic TP BID [facility] Last Admin: 11/24/18 11:27 Dose: 1 applic Pantoprazole Sodium (Protonix -) 40 mg PO DAILY [facility] Last Admin: 11/24/18 09:21 Dose: 40 mg Polyethylene Glycol (Miralax (For Daily Use) -) 17 gm PO DAILY [facility] Last Admin: 11/24/18 10:48 Dose: 17 gm Valsartan (Diovan -) 320 mg PO DAILY [facility] Last Admin: 11/24/18 09:21 Dose: 320 mg Zolpidem Tartrate (Ambien -) 5 mg PO HS PRN PRN Reason: INSOMNIA Last Admin: 11/23/18 23:14 Dose: 5 mg - Objective Vital Signs: Vital Signs Temperature 97.9 F 11/24/18 10:00 Pulse Rate 96 H 11/24/18 10:00 Respiratory Rate 18 11/24/18 10:00 Blood Pressure 138/66 11/24/18 10:00 O2 Sat by Pulse Oximetry (%) 96 11/24/18 09:00 Eyes: Yes: WNL, Conjunctiva Clear, EOM Intact HENT: Yes: WNL, Atraumatic, Normocephalic Neck: Yes: WNL, Supple, Trachea Midline Cardiovascular: Yes: WNL, Regular Rate and Rhythm Respiratory: Yes: WNL, Regular, CTA Bilaterally Gastrointestinal: Yes: WNL, Normal Bowel Sounds Genitourinary: Yes: WNL Musculoskeletal: Yes: WNL Extremities: Yes: WNL Edema: No Integumentary: Yes: WNL Neurological: Yes: WNL, Alert, Oriented ...Motor Strength: WNL Psychiatric: Yes: WNL Labs: CBC, BMP 11/24/18 11:30 11/24/18 11:30 Assessment/Plan - Problems (1) Asthma exacerbation in COPD Assessment/Plan: F/u with pulmonolgist Bronchodilators; steroids, O2. Pt OOB; now walking more (slowly, in hallway). Code(s): J44.1 - CHRONIC OBSTRUCTIVE PULMONARY DISEASE W (ACUTE) EXACERBATION; J45.901 - UNSPECIFIED ASTHMA WITH (ACUTE) EXACERBATION (2) Diabetes Assessment/Plan: On glucophage, Levemir, Novolog. On Diovan (HTN; renal protection with DM). Code(s): E11.9 - TYPE 2 DIABETES MELLITUS WITHOUT COMPLICATIONS (3) Diastolic CHF Assessment/Plan: On valsartan and chlorthalidone. F/u BUN/Cr, electrolytes, daily weight, Is and Os. F/u prior workup for coronary arteries (stress MIBI). Code(s): I50.30 - UNSPECIFIED DIASTOLIC (CONGESTIVE) HEART FAILURE (4) Hypercholesteremia Assessment/Plan: Elevated HDL (123 mg/dl); LDL 67 and triglycerides 40. Continue atorvastatin 20 mg/d. Code(s): E78.0 - PURE HYPERCHOLESTEROLEMIA * DO NOT USE * (5) Hypertension Assessment/Plan: On Diovan, amlodipine, and chlorthalidone. Code(s): I10 - ESSENTIAL (PRIMARY) HYPERTENSION (6) Obesity (BMI 30.0-34.9) Code(s): E66.9 - OBESITY, UNSPECIFIED
[2018-11-24 14:38] LABS: ANISOCYTOSIS 0; HELMET CELLS 0; HOWELL-JOLLY BODIES 0; MACROCYTOSIS 0; OVALOCYTE 0; PLATELET ESTIMATE NORMAL; ROULEAU 0; SICKELED CELLS 0; TARGET CELLS 0; TEAR DROP CELLS 0; TOXIC GRANULATION 0
[2018-11-24] MEDS: ATORVASTATIN CA 20 MG TABLET (FP) PO SCH (21:28)
[2018-11-24] MEDS: MICONAZOLE NITRATE 100 MG SUPP SUPP.VAG PV SCH (21:28)
[2018-11-24] MEDS: INSULIN (LEVEMIR) 100 UNITS/ML UNITS SQ SCH (21:28)
[2018-11-24] MEDS: MONTELUKAST NA 10 MG TABLET PO SCH (21:29)
[2018-11-24] MEDS: ZOLPIDEM TARTRATE 5 MG TABLET PO PRN (23:11)
[2018-11-25] MEDS: NYSTATIN 500,000 UNITS/5 ML SUSPENSION PO SCH ×3 (06:15→21:49)
[2018-11-25] MEDS: INSULIN SLIDING SCALE (NOVOLOG) 1 VIAL SQ SCH ×4 (06:15→21:48)
[2018-11-25] MEDS: metFORMIN HCL 500 MG TABLET (FP) PO SCH ×2 (06:15→16:16)
[2018-11-25] MEDS: POLYETHYLENE GLYCOL 3350 119 GM BTL PO SCH (09:33)
[2018-11-25] MEDS: VALSARTAN 160 MG TABLET (UD) PO SCH (09:33)
[2018-11-25] MEDS: BUDESONIDE/FORMETEROL FUMARATE 160/4.5 mcg INHALER IH SCH ×2 (09:33→21:49)
[2018-11-25] MEDS: amLODIPine BESYLATE 5 MG TABLET (FP) PO SCH (09:34)
[2018-11-25] MEDS: guaiFENesin 600 MG TABLET.ER (FP) PO SCH ×2 (09:34→21:48)
[2018-11-25] MEDS: methylPREDNISolone NA SUCC 40 MG/1 ML VIAL IVPUSH SCH ×2 (09:34→21:49)
[2018-11-25] MEDS: PANTOPRAZOLE 40 MG TABLET (FP) PO SCH (09:34)
[2018-11-25] MEDS: NYSTATIN 100,000 UNIT/GM TOPICAL CREAM 15 GM TUBE TP SCH ×2 (09:35→21:48)
[2018-11-25] MEDS: CHLORTHALIDONE 25 MG TABLET PO SCH (09:41)
[2018-11-25] MEDS ORDERED: ALBUTEROL SO4 2.5/IPRATROPIUM 0.5 INH SOL 3 ML VIAL.NEB. NEB PRN (10:07)
--- NOTE | 2018-11-25 10:09 | PN ---
Progress Note (short form) - Note Progress Note: pt seen/ examined still wheezing having regular bm now no distress Vital Signs Temp 97.8 F 11/25/18 05:52 Pulse 77 11/25/18 05:52 Resp 20 11/25/18 05:52 BP 111/58 L 11/25/18 05:52 Pulse Ox 96 11/24/18 21:00 Intake & Output 11/24/18 11/24/18 11/25/18 11:59 23:59 11:59 Intake Total 240 720 Balance 240 720 Weight 159 lb 2 oz 158 lb 2 oz Intake: Oral 240 720 Other: Voiding Method Toilet Toilet # Unmeasured Voids Void 2 Bowel Movement No # Bowel Movements 2 Weight Measurement Method Chair Scale Chair Scale Active Medications Al Hydroxide/Mg Hydroxide (Mylanta Oral Suspension -) 30 ml PO Q6H PRN PRN Reason: DYSPEPSIA Last Admin: 11/23/18 10:12 Dose: 30 ml Albuterol/Ipratropium (Duoneb -) 1 amp NEB Q4H PRN PRN Reason: SHORTNESS OF BREATH Amlodipine Besylate (Norvasc -) 5 mg PO DAILY [facility] Last Admin: 11/25/18 09:34 Dose: 5 mg Atorvastatin Calcium (Lipitor -) 20 mg PO HS [facility] Last Admin: 11/24/18 21:28 Dose: 20 mg Budesonide/Formoterol Fumarate (Symbicort 160/4.5mcg -) 2 puff IH BID [facility] Last Admin: 11/25/18 09:33 Dose: 2 puff Calamine (Calamine 8% Topical Lotion -) 1 applic TP QID PRN PRN Reason: FOR ITCHING Last Admin: 11/16/18 13:12 Dose: 1 applic Chlorthalidone (Hygroton -) 25 mg PO DAILY [facility] Last Admin: 11/25/18 09:41 Dose: 25 mg Diphenhydramine HCl (Benadryl -) 50 mg PO Q6H PRN PRN Reason: FOR ITCHING Last Admin: 11/22/18 23:47 Dose: 50 mg Guaifenesin (Mucinex -) 600 mg PO BID [facility] Last Admin: 11/25/18 09:34 Dose: 600 mg Insulin Aspart (Novolog Vial Sliding Scale -) 1 vial SQ ACHS [facility]; Protocol Last Admin: 11/25/18 06:15 Dose: 2 units Insulin Detemir (Levemir Vial) 14 units SQ HS [facility] Last Admin: 11/24/18 21:28 Dose: 14 units Metformin HCl (Glucophage -) 1,000 mg PO BID@0700,1630 [facility] Last Admin: 11/25/18 06:15 Dose: 1,000 mg Methylprednisolone Sodium Succinate (Solu-Medrol -) 40 mg IVPUSH BID [facility] Last Admin: 11/25/18 09:34 Dose: 40 mg Miconazole Nitrate (Monistat-7 Vaginal Suppository -) 100 mg PV HS [facility] Last Admin: 11/24/18 21:28 Dose: 1 supp.vag Montelukast Sodium (Singulair -) 10 mg PO HS [facility] Last Admin: 11/24/18 21:29 Dose: 10 mg Nystatin (Nystatin Oral Suspension -) 500,000 units PO TID [facility] Last Admin: 11/25/18 06:15 Dose: Not Given Nystatin (Mycostatin Cream -) 1 applic TP BID [facility] Last Admin: 11/25/18 09:35 Dose: 1 applic Pantoprazole Sodium (Protonix -) 40 mg PO DAILY [facility] Last Admin: 11/25/18 09:34 Dose: 40 mg Polyethylene Glycol (Miralax (For Daily Use) -) 17 gm PO DAILY [facility] Last Admin: 11/25/18 09:33 Dose: 17 gm Valsartan (Diovan -) 320 mg PO DAILY [facility] Last Admin: 11/25/18 09:33 Dose: 320 mg Zolpidem Tartrate (Ambien -) 5 mg PO HS PRN PRN Reason: INSOMNIA Last Admin: 11/24/18 23:11 Dose: 5 mg CBC, BMP 11/24/18 11:30 11/24/18 11:30 Physical Exam. S1 S2 RRR Lungs -- Bilateral Wheezes Abd - soft, Ext- no edema PLAN Discussed Continue steroids--same dose today [facility] to evaluate for rehab will follow Problem List - Problems (1) Asthma exacerbation Code(s): J45.901 - UNSPECIFIED ASTHMA WITH (ACUTE) EXACERBATION Qualifiers: Asthma severity: mild Asthma persistence: unspecified Qualified Code(s): J45.901 - Unspecified asthma with (acute) exacerbation (2) Asthma exacerbation in COPD Code(s): J44.1 - CHRONIC OBSTRUCTIVE PULMONARY DISEASE W (ACUTE) EXACERBATION; J45.901 - UNSPECIFIED ASTHMA WITH (ACUTE) EXACERBATION (3) COPD exacerbation Code(s): J44.1 - CHRONIC OBSTRUCTIVE PULMONARY DISEASE W (ACUTE) EXACERBATION (4) Diabetes Code(s): E11.9 - TYPE 2 DIABETES MELLITUS WITHOUT COMPLICATIONS (5) Diastolic CHF Code(s): I50.30 - UNSPECIFIED DIASTOLIC (CONGESTIVE) HEART FAILURE
--- NOTE | 2018-11-25 11:04 | PN ---
Progress Note (short form) - Note Progress Note: PULMONARY Breathing continues to improve. Less cough and wheezing. c/o intermittent right sided neck pain, nonpositional. No fevers, chills or sweats. Vital Signs Period Temp Pulse Resp BP Sys/Stallings Pulse Ox Last 24 Hr 97.8 F-98.4 F 70-90 18-20 111-120/53-58 96-98 Gen: less tachypneic with speaking Heart: RRR Lung: scattered rhonchi, wheezes Abd: soft, nontender Ext: no edema CBC, BMP 11/24/18 11:30 11/24/18 11:30 Active Medications Al Hydroxide/Mg Hydroxide (Mylanta Oral Suspension -) 30 ml PO Q6H PRN PRN Reason: DYSPEPSIA Last Admin: 11/23/18 10:12 Dose: 30 ml Albuterol/Ipratropium (Duoneb -) 1 amp NEB Q4H PRN PRN Reason: SHORTNESS OF BREATH Amlodipine Besylate (Norvasc -) 5 mg PO DAILY [facility] Last Admin: 11/25/18 09:34 Dose: 5 mg Atorvastatin Calcium (Lipitor -) 20 mg PO [facility] Last Admin: 11/24/18 21:28 Dose: 20 mg Budesonide/Formoterol Fumarate (Symbicort 160/4.5mcg -) 2 puff IH BID [facility] Last Admin: 11/25/18 09:33 Dose: 2 puff Calamine (Calamine 8% Topical Lotion -) 1 applic TP QID PRN PRN Reason: FOR ITCHING Last Admin: 11/16/18 13:12 Dose: 1 applic Chlorthalidone (Hygroton -) 25 mg PO DAILY [facility] Last Admin: 11/25/18 09:41 Dose: 25 mg Diphenhydramine HCl (Benadryl -) 50 mg PO Q6H PRN PRN Reason: FOR ITCHING Last Admin: 11/22/18 23:47 Dose: 50 mg Guaifenesin (Mucinex -) 600 mg PO BID [facility] Last Admin: 11/25/18 09:34 Dose: 600 mg Insulin Aspart (Novolog Vial Sliding Scale -) 1 vial SQ [facility]; Protocol Last Admin: 11/25/18 06:15 Dose: 2 units Insulin Detemir (Levemir Vial) 14 units SQ [facility] Last Admin: 11/24/18 21:28 Dose: 14 units Metformin HCl (Glucophage -) 1,000 mg PO BID@0700,1630 [facility] Last Admin: 11/25/18 06:15 Dose: 1,000 mg Methylprednisolone Sodium Succinate (Solu-Medrol -) 40 mg IVPUSH BID [facility] Last Admin: 11/25/18 09:34 Dose: 40 mg Miconazole Nitrate (Monistat-7 Vaginal Suppository -) 100 mg PV HS [facility] Last Admin: 11/24/18 21:28 Dose: 1 supp.vag Montelukast Sodium (Singulair -) 10 mg PO HS [facility] Last Admin: 11/24/18 21:29 Dose: 10 mg Nystatin (Nystatin Oral Suspension -) 500,000 units PO TID [facility] Last Admin: 11/25/18 06:15 Dose: Not Given Nystatin (Mycostatin Cream -) 1 applic TP BID [facility] Last Admin: 11/25/18 09:35 Dose: 1 applic Pantoprazole Sodium (Protonix -) 40 mg PO DAILY [facility] Last Admin: 11/25/18 09:34 Dose: 40 mg Polyethylene Glycol (Miralax (For Daily Use) -) 17 gm PO DAILY [facility] Last Admin: 11/25/18 09:33 Dose: 17 gm Valsartan (Diovan -) 320 mg PO DAILY [facility] Last Admin: 11/25/18 09:33 Dose: 320 mg Zolpidem Tartrate (Ambien -) 5 mg PO HS PRN PRN Reason: INSOMNIA Last Admin: 11/24/18 23:11 Dose: 5 mg A/P Acute Asthma Exacerbation Moderate/Severe Persistent Asthma HTN DM Anxiety Anemia - will change steroids to PO prednisone 40mg daily and taper as outpt - inhaled bronchodilators standing and PRN - O2 to keep SpO2>90% - monitor peak flow - singulair - DVT prophylaxis - for Angulo evaluation
[2018-11-25] MEDS ORDERED: ALBUTEROL SO4 0.083% IH SOL 2.5 MG/3 ML VIAL.NEB. NEB PRN (11:05)
[2018-11-25] MEDS: ALBUTEROL SO4 2.5/IPRATROPIUM 0.5 INH SOL 3 ML VIAL.NEB. NEB SCH ×3 (11:56→21:10)
[2018-11-25] MEDS ORDERED: INSULIN (NOVOLOG) ASPART 100 UNITS/ML 10ML VIAL ONE (21:31)
[2018-11-25] MEDS: INSULIN (LEVEMIR) 100 UNITS/ML UNITS SQ SCH (21:47)
[2018-11-25] MEDS: ATORVASTATIN CA 20 MG TABLET (FP) PO SCH (21:48)
[2018-11-25] MEDS: MICONAZOLE NITRATE 100 MG SUPP SUPP.VAG PV SCH (21:48)
[2018-11-25] MEDS: MONTELUKAST NA 10 MG TABLET PO SCH (21:49)
[2018-11-25] MEDS: ZOLPIDEM TARTRATE 5 MG TABLET PO PRN (23:32)
--- NOTE | 2018-11-25 23:36 | PN ---
Progress Note, Physician - Current Medication List Current Medications: Active Medications Al Hydroxide/Mg Hydroxide (Mylanta Oral Suspension -) 30 ml PO Q6H PRN PRN Reason: DYSPEPSIA Last Admin: 11/23/18 10:12 Dose: 30 ml Albuterol Sulfate (Ventolin 0.083% Nebulizer Soln -) 1 amp NEB Q4H PRN PRN Reason: SHORT OF BREATH/WHEEZING Albuterol/Ipratropium (Duoneb -) 1 amp NEB RQID [facility] Last Admin: 11/25/18 21:10 Dose: 1 amp Amlodipine Besylate (Norvasc -) 5 mg PO DAILY [facility] Last Admin: 11/25/18 09:34 Dose: 5 mg Atorvastatin Calcium (Lipitor -) 20 mg PO HS [facility] Last Admin: 11/25/18 21:48 Dose: 20 mg Budesonide/Formoterol Fumarate (Symbicort 160/4.5mcg -) 2 puff IH BID [facility] Last Admin: 11/25/18 21:49 Dose: 2 puff Calamine (Calamine 8% Topical Lotion -) 1 applic TP QID PRN PRN Reason: FOR ITCHING Last Admin: 11/16/18 13:12 Dose: 1 applic Chlorthalidone (Hygroton -) 25 mg PO DAILY [facility] Last Admin: 11/25/18 09:41 Dose: 25 mg Diphenhydramine HCl (Benadryl -) 50 mg PO Q6H PRN PRN Reason: FOR ITCHING Last Admin: 11/22/18 23:47 Dose: 50 mg Guaifenesin (Mucinex -) 600 mg PO BID [facility] Last Admin: 11/25/18 21:48 Dose: 600 mg Insulin Aspart (Novolog Vial Sliding Scale -) 1 vial SQ [facility]; Protocol Last Admin: 11/25/18 21:48 Dose: 2 units Insulin Detemir (Levemir Vial) 14 units SQ [facility] Last Admin: 11/25/18 21:47 Dose: 14 units Metformin HCl (Glucophage -) 1,000 mg PO BID@0700,1630 [facility] Last Admin: 11/25/18 16:16 Dose: 1,000 mg Methylprednisolone Sodium Succinate (Solu-Medrol -) 40 mg IVPUSH BID [facility] Last Admin: 11/25/18 21:49 Dose: 40 mg Miconazole Nitrate (Monistat-7 Vaginal Suppository -) 100 mg PV HS [facility] Last Admin: 11/25/18 21:48 Dose: 1 supp.vag Montelukast Sodium (Singulair -) 10 mg PO HS [facility] Last Admin: 11/25/18 21:49 Dose: 10 mg Nystatin (Nystatin Oral Suspension -) 500,000 units PO TID [facility] Last Admin: 11/25/18 21:49 Dose: 500,000 units Nystatin (Mycostatin Cream -) 1 applic TP BID [facility] Last Admin: 11/25/18 21:48 Dose: 1 applic Pantoprazole Sodium (Protonix -) 40 mg PO DAILY [facility] Last Admin: 11/25/18 09:34 Dose: 40 mg Polyethylene Glycol (Miralax (For Daily Use) -) 17 gm PO DAILY [facility] Last Admin: 11/25/18 09:33 Dose: 17 gm Valsartan (Diovan -) 320 mg PO DAILY [facility] Last Admin: 11/25/18 09:33 Dose: 320 mg Zolpidem Tartrate (Ambien -) 5 mg PO HS PRN PRN Reason: INSOMNIA Last Admin: 11/25/18 23:32 Dose: 5 mg - Objective Vital Signs: Vital Signs Temperature 98.3 F 11/25/18 22:03 Pulse Rate 86 11/25/18 22:03 Respiratory Rate 20 11/25/18 22:03 Blood Pressure 111/55 L 11/25/18 22:03 O2 Sat by Pulse Oximetry (%) 98 11/25/18 21:00 Labs: CBC, BMP 11/24/18 11:30 11/24/18 11:30 Problem List - Problems (1) Asthma exacerbation in COPD Code(s): J44.1 - CHRONIC OBSTRUCTIVE PULMONARY DISEASE W (ACUTE) EXACERBATION; J45.901 - UNSPECIFIED ASTHMA WITH (ACUTE) EXACERBATION (2) Diabetes Code(s): E11.9 - TYPE 2 DIABETES MELLITUS WITHOUT COMPLICATIONS (3) Diastolic CHF Code(s): I50.30 - UNSPECIFIED DIASTOLIC (CONGESTIVE) HEART FAILURE (4) Hypercholesteremia Code(s): E78.0 - PURE HYPERCHOLESTEROLEMIA * DO NOT USE * (5) Hypertension Code(s): I10 - ESSENTIAL (PRIMARY) HYPERTENSION (6) Obesity (BMI 30.0-34.9) Code(s): E66.9 - OBESITY, UNSPECIFIED
[2018-11-26] MEDS: INSULIN SLIDING SCALE (NOVOLOG) 1 VIAL SQ SCH ×2 (06:05→11:40)
[2018-11-26] MEDS: NYSTATIN 500,000 UNITS/5 ML SUSPENSION PO SCH (06:05)
[2018-11-26] MEDS: metFORMIN HCL 500 MG TABLET (FP) PO SCH (06:05)
[2018-11-26] MEDS: ALBUTEROL SO4 2.5/IPRATROPIUM 0.5 INH SOL 3 ML VIAL.NEB. NEB SCH ×2 (07:30→11:20)
--- NOTE | 2018-11-26 08:24 | PN ---
Progress Note, Physician History of Present Illness: The patient is an 87 Y black woman with PMH of asthma/COPD, diastolic CHF, DM, HTN, anxiety, anemia, and obesity, presents for "asthma exacerbation" for 1 month. Patient was admitted for this complaint last month, and was discharged 3 weeks ago with Zpack and an increasing dose of prednisone (recently increased to 40 2x a day 2 days ago). She notes no change in her symptoms since her discharge, and Dr. Sanchez advised she come to the ED for solumedrol. She endorses associated cough, which was productive of green sputum but is now white and bilateral LE edema (L>R). She was intubated once over 25 years ago, and her current peak flow is 200 (highest was 300). She denies tobacco use, but notes many people in her building smoke. Denies fever, chills, diarrhea, chest pain, sudden weight loss. Patient notes she also has thrush, with associated burning sensation in the throat (on Nystatin). Pt likes to "stay in shape"; she tries to walk 10,000-20,000 steps a day. Allergies: Oral and IV Iodinated Contrast, tetracyclines, shellfish Surgical History: Breast biopsy, tubal ligation Social History: Former smoker (quit 25 years ago). PCP: Dr. Mohini Sanchez Pulm: Dr. Perea - Current Medication List Current Medications: Active Medications Al Hydroxide/Mg Hydroxide (Mylanta Oral Suspension -) 30 ml PO Q6H PRN PRN Reason: DYSPEPSIA Last Admin: 11/23/18 10:12 Dose: 30 ml Albuterol Sulfate (Ventolin 0.083% Nebulizer Soln -) 1 amp NEB Q4H PRN PRN Reason: SHORT OF BREATH/WHEEZING Albuterol/Ipratropium (Duoneb -) 1 amp NEB RQID [facility] Last Admin: 11/26/18 07:30 Dose: 1 amp Amlodipine Besylate (Norvasc -) 5 mg PO DAILY [facility] Last Admin: 11/25/18 09:34 Dose: 5 mg Atorvastatin Calcium (Lipitor -) 20 mg PO HS [facility] Last Admin: 11/25/18 21:48 Dose: 20 mg Budesonide/Formoterol Fumarate (Symbicort 160/4.5mcg -) 2 puff IH BID [facility] Last Admin: 11/25/18 21:49 Dose: 2 puff Calamine (Calamine 8% Topical Lotion -) 1 applic TP QID PRN PRN Reason: FOR ITCHING Last Admin: 11/16/18 13:12 Dose: 1 applic Chlorthalidone (Hygroton -) 25 mg PO DAILY [facility] Last Admin: 11/25/18 09:41 Dose: 25 mg Diphenhydramine HCl (Benadryl -) 50 mg PO Q6H PRN PRN Reason: FOR ITCHING Last Admin: 11/22/18 23:47 Dose: 50 mg Guaifenesin (Mucinex -) 600 mg PO BID [facility] Last Admin: 11/25/18 21:48 Dose: 600 mg Insulin Aspart (Novolog Vial Sliding Scale -) 1 vial SQ [facility]; Protocol Last Admin: 11/26/18 06:05 Dose: 8 units Insulin Detemir (Levemir Vial) 14 units SQ [facility] Last Admin: 11/25/18 21:47 Dose: 14 units Metformin HCl (Glucophage -) 1,000 mg PO BID@0700,1630 [facility] Last Admin: 11/26/18 06:05 Dose: 1,000 mg Methylprednisolone Sodium Succinate (Solu-Medrol -) 40 mg IVPUSH BID [facility] Last Admin: 11/25/18 21:49 Dose: 40 mg Miconazole Nitrate (Monistat-7 Vaginal Suppository -) 100 mg PV [facility] Last Admin: 11/25/18 21:48 Dose: 1 supp.vag Montelukast Sodium (Singulair -) 10 mg PO [facility] Last Admin: 11/25/18 21:49 Dose: 10 mg Nystatin (Nystatin Oral Suspension -) 500,000 units PO TID [facility] Last Admin: 11/26/18 06:05 Dose: 500,000 units Nystatin (Mycostatin Cream -) 1 applic TP BID [facility] Last Admin: 11/25/18 21:48 Dose: 1 applic Pantoprazole Sodium (Protonix -) 40 mg PO DAILY [facility] Last Admin: 11/25/18 09:34 Dose: 40 mg Polyethylene Glycol (Miralax (For Daily Use) -) 17 gm PO DAILY [facility] Last Admin: 11/25/18 09:33 Dose: 17 gm Valsartan (Diovan -) 320 mg PO DAILY [facility] Last Admin: 11/25/18 09:33 Dose: 320 mg Zolpidem Tartrate (Ambien -) 5 mg PO HS PRN PRN Reason: INSOMNIA Last Admin: 11/25/18 23:32 Dose: 5 mg - Objective Vital Signs: Vital Signs Temperature 98.4 F 11/26/18 07:02 Pulse Rate 83 11/26/18 07:02 Respiratory Rate 20 11/26/18 07:02 Blood Pressure 113/56 L 11/26/18 07:02 O2 Sat by Pulse Oximetry (%) 98 11/25/18 21:00 Eyes: Yes: WNL, Conjunctiva Clear, EOM Intact HENT: Yes: WNL, Atraumatic, Normocephalic Neck: Yes: WNL, Supple, Trachea Midline Cardiovascular: Yes: WNL, Regular Rate and Rhythm Respiratory: Yes: WNL, Regular, CTA Bilaterally Gastrointestinal: Yes: WNL, Normal Bowel Sounds Genitourinary: Yes: WNL Musculoskeletal: Yes: WNL Extremities: Yes: WNL Edema: No Integumentary: Yes: WNL Neurological: Yes: WNL, Alert, Oriented ...Motor Strength: WNL Psychiatric: Yes: WNL Labs: CBC, BMP 11/24/18 11:30 11/24/18 11:30 Assessment/Plan - Problems (1) Asthma exacerbation in COPD Assessment/Plan: F/u with pulmonolgist Bronchodilators; steroids, O2. Pt OOB; now walking more (slowly, in hallway). Code(s): J44.1 - CHRONIC OBSTRUCTIVE PULMONARY DISEASE W (ACUTE) EXACERBATION; J45.901 - UNSPECIFIED ASTHMA WITH (ACUTE) EXACERBATION (2) Diabetes Assessment/Plan: On glucophage, Levemir, Novolog. On Diovan (HTN; renal protection with DM). Code(s): E11.9 - TYPE 2 DIABETES MELLITUS WITHOUT COMPLICATIONS (3) Diastolic CHF Assessment/Plan: On valsartan and chlorthalidone. F/u BUN/Cr, electrolytes, daily weight, Is and Os. F/u prior workup for coronary arteries (stress MIBI). Code(s): I50.30 - UNSPECIFIED DIASTOLIC (CONGESTIVE) HEART FAILURE (4) Hypercholesteremia Assessment/Plan: Elevated HDL (123 mg/dl); LDL 67 and triglycerides 40. Continue atorvastatin 20 mg/d. Code(s): E78.0 - PURE HYPERCHOLESTEROLEMIA * DO NOT USE * (5) Hypertension Assessment/Plan: On Diovan, amlodipine, and chlorthalidone. Code(s): I10 - ESSENTIAL (PRIMARY) HYPERTENSION (6) Obesity (BMI 30.0-34.9) Code(s): E66.9 - OBESITY, UNSPECIFIED
[2018-11-26] MEDS: amLODIPine BESYLATE 5 MG TABLET (FP) PO SCH (11:19)
[2018-11-26] MEDS: guaiFENesin 600 MG TABLET.ER (FP) PO SCH (11:19)
[2018-11-26] MEDS: VALSARTAN 160 MG TABLET (UD) PO SCH (11:19)
[2018-11-26] MEDS: POLYETHYLENE GLYCOL 3350 119 GM BTL PO SCH (11:19)
[2018-11-26] MEDS: PANTOPRAZOLE 40 MG TABLET (FP) PO SCH (11:19)
[2018-11-26] MEDS: methylPREDNISolone NA SUCC 40 MG/1 ML VIAL IVPUSH SCH (11:20)
[2018-11-26] MEDS: CHLORTHALIDONE 25 MG TABLET PO SCH (11:20)
[2018-11-26] MEDS: BUDESONIDE/FORMETEROL FUMARATE 160/4.5 mcg INHALER IH SCH (11:21)
[2018-11-26 11:30] VITALS: BP 107/54; PULSE 86; TEMP 98.1
[2018-11-26] MEDS: NYSTATIN 100,000 UNIT/GM TOPICAL CREAM 15 GM TUBE TP SCH (11:31)
[2018-11-26] MEDS: MAG HYDROX/AL HYDROX/SIMETH 30 ML UNIT-DOSE CUP PO PRN (11:34)
--- NOTE | 2018-11-26 13:07 | DS ---
Physical Examination Vital Signs: Vital Signs Temperature 98.1 F 11/26/18 11:29 Pulse Rate 86 11/26/18 11:29 Respiratory Rate 18 11/26/18 11:29 Blood Pressure 107/54 L 11/26/18 11:29 O2 Sat by Pulse Oximetry (%) 98 11/25/18 21:00 Constitutional: Yes: No Distress, Calm. No: Well Nourished Eyes: Yes: Conjunctiva Clear Neck: Yes: Supple Cardiovascular: Yes: Regular Rate and Rhythm Respiratory: Yes: Rhonchi (Much better) Gastrointestinal: Yes: Soft Edema: No Neurological: Yes: Alert Psychiatric: Yes: Alert Labs: CBC, BMP 11/24/18 11:30 11/24/18 11:30 Discharge Summary Reason For Visit: EXACERBATION OF ASTHMA Current Active Problems Asthma exacerbation (Acute) Hospital Course: patient admitted for asthma examination----moderate to severe treated with steroids/Nebulizer treatment slow recovery Followed by pulmonary Eventually got better [place] candidate for [facility]----accepted----going there today Will discharge on prednisone taper prednisone slowly follow up in office after Discharge from rehabilitation Patient in agreement medications reconciled Discussed with nursing staff as well as case management Condition: Improved - Instructions Disposition: RESIDENTIAL FACILITY - Home Medications Comprehensive Discharge Medication List: Ambulatory Orders Arformoterol Tartrate [Brovana] 15 mcg IH BID 01/02/15 Albuterol 0.083% Nebulizer Delmi [Ventolin 0.083% Nebulizer Soln -] 1 neb NEB Q4H PRN #1 box 10/12/15 Umeclidinium [place] [Incruse Ellipta] 1 puff IH DAILY 04/28/18 Atorvastatin Ca [Lipitor] 20 mg PO DAILY 10/11/18 Chlorthalidone 25 mg PO DAILY 10/11/18 Fluticasone/Vilanterol [Breo Ellipta 200-25 Mcg INH] 1 inh IH HS 10/11/18 Telmisartan [Micardis] 80 mg PO DAILY 10/11/18 metFORMIN HCL [Glucophage -] 1,000 mg PO BID@0700,1630 #30 tablet 10/17/18 Beclomethasone Dipropionate [Qvar Redihaler] 10.6 gm IH DAILY 11/12/18 Nystatin 100,000 unit PO DAILY 11/12/18 predniSONE [Deltasone -] 40 mg PO BID 11/12/18 Amlodipine Besylate [Norvasc -] 5 mg PO DAILY tablet 11/26/18 Guaifenesin [Mucinex -] 600 mg PO BID tablet.er 11/26/18 Insulin (Levemir) [Levemir Vial] 14 units SQ HS units 11/26/18 Montelukast Na [Singulair -] 10 mg PO HS tablet 11/26/18 Nystatin Cream [Mycostatin Cream -] 1 applic TP BID applic 11/26/18 Polyethylene Glycol 3350 [Miralax 119 gm Btl -] 17 gm PO DAILY bottle 11/26/18 Zolpidem Tartrate [Ambien] 5 mg PO HS PRN #30 tablet MDD 1 11/26/18
== END 2018-11-26 14:55 | DRG 202 ==
LOC: JER 07:29 → JERBED 11:57 → J6S 11-13 01:15
PROVIDERS: ADMIT Internal Medicine; ATTEND Internal Medicine
DX: J45.51 Severe persistent asthma with (acute) exacerbation (principal); J44.1 Chronic obstructive pulmonary disease with (acute) exacerbation; I50.30 Unspecified diastolic (congestive) heart failure; B37.0 Candidal stomatitis; I11.0 Hypertensive heart disease with heart failure; D64.9 Anemia, unspecified; E78.5 Hyperlipidemia, unspecified; R06.00 Dyspnea, unspecified; E11.9 Type 2 diabetes mellitus without complications; F41.9 Anxiety disorder, unspecified; E66.9 Obesity, unspecified; Z68.31 Body mass index [BMI] 31.0-31.9, adult; N76.0 Acute vaginitis; K59.00 Constipation, unspecified; Z87.891 Personal history of nicotine dependence
CPT/HCPCS: 36415; 71046-TC-FY; 80053; 82962; 83036; 83880; 85025; 93005; 93010; 94010; 94640; 94664; 97116-GP; 97161-GP; 99284-25

== ENCOUNTER 2020-09-29 09:03 | Observation (INO) | payer OTHER ==
[2020-09-29] MEDS ORDERED: NITROGLYCERIN SUBLINGUAL 1/200 0.3 MG BTL SL ONE (09:52)
[2020-09-29] MEDS ORDERED: ASPIRIN 81 MG CHEWABLE TABLETS PO ONE (09:52)
[2020-09-29 10:19] LABS: BASO % 0.5 % (0-2.0); EOS % 1.1 % (0-4.5); HEMATOCRIT 40.7 % (32.4-45.2); HEMOGLOBIN 13.2 GM/dL (10.7-15.3); MCH 28.4 pg (25.7-33.7); MCHC 32.4 g/dl (32.0-36.0); MEAN CELL VOLUME 87.8 fl (80-96); MONO % 9.1 % (3.8-10.2); NEUT % 70.3 % (42.8-82.8); PLATELET COUNT 209 K/MM3 (134-434); RBC 4.63 M/mm3 (3.60-5.2); RDW 15.8 % (11.6-15.6); WHITE BLOOD COUNT 8.6 K/mm3 (4.0-10.0)
[2020-09-29 10:20] LABS: INR 0.92 (0.83-1.09); PROTHROMBIN TIME (PATIENT) 11.3 SEC (9.7-13.0)
[2020-09-29] MEDS ORDERED: ASPIRIN 81 MG CHEWABLE TABLETS ONE (10:21)
[2020-09-29 10:22] LABS: ACTIVATED PTT 27.9 SECONDS (25.2-36.5)
[2020-09-29] MEDS ORDERED: NITROGLYCERIN SUBLINGUAL 1/150 0.4 MG TAB ONE (10:22)
[2020-09-29 10:30] LABS: CHLORIDE 101 mmol/L (98-107); SODIUM 134 mmol/L (136-145)
[2020-09-29 10:31] LABS: CALCIUM 9.6 mg/dL (8.5-10.1)
[2020-09-29 10:32] LABS: ANION GAP 5 MMOL/L (8-16); BLOOD UREA NITROGEN 27.7 mg/dL (7-18); CO2 28 mmol/L (21-32); GLUCOSE,RANDOM 211 mg/dL (74-106)
[2020-09-29 10:35] LABS: CREATININE 0.9 mg/dL (0.55-1.3); SGOT/AST 28 U/L (15-37); SGPT/ALT 33 U/L (13-61)
[2020-09-29 10:37] LABS: BILIRUBIN,TOTAL 0.5 mg/dL (0.2-1); TOT PROT 7.5 g/dl (6.4-8.2)
[2020-09-29 10:38] LABS: ALK PHOS 70 U/L (45-117)
[2020-09-29] MEDS ORDERED: ZOLPIDEM TARTRATE 5 MG TABLET PO PRN (12:06)
[2020-09-29] MEDS ORDERED: ALBUTEROL SO4 0.083% IH SOL 2.5 MG/3 ML VIAL.NEB. NEB PRN ×2 (12:06→14:41)
[2020-09-29] MEDS ORDERED: MONTELUKAST NA 10 MG TABLET PO SCH (22:00)
[2020-09-29] MEDS: BUDESONIDE/FORMETEROL FUMARATE 160/4.5 mcg INHALER IH SCH (22:24)
[2020-09-29] MEDS: CHLORTHALIDONE 25 MG TABLET PO SCH (23:20)
[2020-09-30 00:33] VITALS: BMI 28.8
[2020-09-30] MEDS ORDERED: NITROGLYCERIN SUBLINGUAL 1/150 0.4 MG TAB SL PRN (03:25)
[2020-09-30] MEDS ORDERED: MAG HYDROX/AL HYDROX/SIMETH 30 ML UNIT-DOSE CUP PO PRN (04:14)
[2020-09-30] MEDS ORDERED: GABAPENTIN 100 MG CAPSULE PO SCH (10:00)
[2020-09-30] MEDS ORDERED: CHLORTHALIDONE 25 MG TABLET PO SCH ×2 (10:00→21:42)
[2020-09-30] MEDS ORDERED: LOSARTAN POTASSIUM 50 MG TABLET PO SCH (10:00)
[2020-09-30] MEDS: CHLORTHALIDONE 25 MG TABLET PO SCH (12:26)
[2020-09-30] MEDS: BUDESONIDE/FORMETEROL FUMARATE 160/4.5 mcg INHALER IH SCH (12:29)
[2020-09-30] MEDS ORDERED: ALBUTEROL SO4 HFA INHALER IH PRN (14:23)
[2020-09-30 14:47] VITALS: BP 118/55; PULSE 70; TEMP 98.5
[2020-09-30] MEDS ORDERED: ATORVASTATIN CA 20 MG TABLET (FP) PO SCH (22:00)
== END 2020-09-30 16:00 | disposition home or self-care (01) ==
LOC: JER 09:03 → JERBED 11:27 → J4S 20:05
PROVIDERS: ADMIT Internal Medicine; ATTEND Internal Medicine
DX: R07.9 Chest pain, unspecified (principal); E11.9 Type 2 diabetes mellitus without complications; J44.1 Chronic obstructive pulmonary disease with (acute) exacerbation; I45.10 Unspecified right bundle-branch block; I11.0 Hypertensive heart disease with heart failure; I50.30 Unspecified diastolic (congestive) heart failure; E78.5 Hyperlipidemia, unspecified; F41.9 Anxiety disorder, unspecified; Z88.1 Allergy status to other antibiotic agents; Z91.041 Radiographic dye allergy status
CPT/HCPCS: 36415; 71046-TC-FY; 78452-TC; 80053; 80061; 82550; 82553; 83036; 83721; 83880; 84443; 84484; 85025; 85610; 85730; 86850; 86900; 86901; 93005; 93010; 93017; 93306-TC; 99285-25; A9502; C9803; G0378; U0003; U0005

== ENCOUNTER 2021-02-04 03:30 | Observation (INO) | payer OTHER ==
[2021-02-04 04:16] VITALS: BMI 65.9
[2021-02-04 05:39] LABS: HEMATOCRIT 38.7 % (32.4-45.2); HEMOGLOBIN 12.7 GM/dL (10.7-15.3); MCH 28.8 pg (25.7-33.7); MCHC 32.9 g/dl (32.0-36.0); MEAN CELL VOLUME 87.5 fl (80-96); MEAN PLT VOLUME 11.2 fl (7.5-11.1); PLATELET COUNT 161 10^3/uL (134-434); RBC 4.42 M/mm3 (3.60-5.2)
[2021-02-04 05:59] LABS: CHLORIDE 105 mmol/L (98-107); SODIUM 140 mmol/L (136-145)
[2021-02-04 06:01] LABS: ALBUMIN 3.7 g/dl (3.4-5.0); ANION GAP 7 MMOL/L (8-16); CALCIUM 8.8 mg/dL (8.5-10.1); CO2 28 mmol/L (21-32); MAGNESIUM 1.8 mg/dL (1.8-2.4)
[2021-02-04 06:02] LABS: BLOOD UREA NITROGEN 15.8 mg/dL (7-18)
[2021-02-04 06:05] LABS: CREATININE 0.5 mg/dL (0.55-1.3); GLUCOSE,RANDOM 117 mg/dL (74-106); SGOT/AST 22 U/L (15-37); SGPT/ALT 27 U/L (13-61)
[2021-02-04 06:06] LABS: BILIRUBIN,TOTAL 0.8 mg/dL (0.2-1); TOT PROT 7.1 g/dl (6.4-8.2)
[2021-02-04 06:07] LABS: ALK PHOS 65 U/L (45-117)
[2021-02-04] MEDS ORDERED: LOSARTAN POTASSIUM 50 MG TABLET PO ONE (07:08)
[2021-02-04] MEDS ORDERED: LOSARTAN POTASSIUM 50 MG TABLET ONE (07:18)
[2021-02-04 07:22] LABS: ANISOCYTOSIS 1+; MACROCYTOSIS 1+; OVALOCYTE 1+; PLATELET ESTIMATE NORMAL
[2021-02-04] MEDS ORDERED: ALBUTEROL SO4 HFA INHALER IH PRN (14:18)
[2021-02-04] MEDS ORDERED: ALBUTEROL SO4 0.083% IH SOL 2.5 MG/3 ML VIAL.NEB. NEB PRN (14:18)
[2021-02-04] MEDS: ENOXAPARIN NA (PORCINE) 40 MG/0.4 ML DISP.SYRIN SQ SCH (17:16)
[2021-02-04] MEDS ORDERED: PT OWN MED DRAWER 7, Y5N ONE (21:00)
[2021-02-04] MEDS: MONTELUKAST NA 10 MG TABLET PO SCH (21:06)
[2021-02-04] MEDS: ZOLPIDEM TARTRATE 5 MG TABLET PO PRN (21:10)
[2021-02-04] MEDS: MUPIROCIN CA 2% TOPICAL CREAM 15 GM TUBE TP SCH (21:13)
[2021-02-04] MEDS ORDERED: MOMETASONE FUROATE 220 MCG/IH INHALER IH SCH (22:00)
[2021-02-05] MEDS: MUPIROCIN CA 2% TOPICAL CREAM 15 GM TUBE TP SCH (05:12)
[2021-02-05 09:04] LABS: CHOLESTEROL 165 mg/dL (50-200); TRIGLYCERIDES 38 mg/dL (0-150)
[2021-02-05 09:06] LABS: HDL CHOLESTEROL 104 mg/dL (40-60); LDL CHOLESTEROL (ONLY SJRH) 47 mg/dL (5-100)
[2021-02-05] MEDS: ENOXAPARIN NA (PORCINE) 40 MG/0.4 ML DISP.SYRIN SQ SCH (09:09)
[2021-02-05] MEDS: CHLORTHALIDONE 25 MG TABLET PO SCH (09:09)
[2021-02-05] MEDS: LOSARTAN POTASSIUM 50 MG TABLET PO SCH (09:09)
[2021-02-05] MEDS: ASPIRIN 81 MG CHEWABLE TABLETS PO SCH (09:10)
[2021-02-05] MEDS ORDERED: GABAPENTIN 100 MG CAPSULE PO SCH (10:00)
[2021-02-05] MEDS: PATIENT'S OWN MEDICATION (NON-FORMULARY) (Umeclidinium Bromide [Incruse Ellipta] 62.5 MCG IH SCH (12:04)
[2021-02-05] MEDS: ZOLPIDEM TARTRATE 5 MG TABLET PO PRN (21:42)
[2021-02-05] MEDS: MONTELUKAST NA 10 MG TABLET PO SCH (21:42)
[2021-02-05] MEDS ORDERED: ATORVASTATIN CA 20 MG TABLET (FP) PO SCH (22:00)
[2021-02-06] MEDS: LOSARTAN POTASSIUM 50 MG TABLET PO SCH ×2 (08:04→08:09)
[2021-02-06] MEDS: CHLORTHALIDONE 25 MG TABLET PO SCH ×2 (08:04→08:09)
[2021-02-06] MEDS: PATIENT'S OWN MEDICATION (NON-FORMULARY) (Umeclidinium Bromide [Incruse Ellipta] 62.5 MCG IH SCH (08:10)
[2021-02-06] MEDS: ASPIRIN 81 MG CHEWABLE TABLETS PO SCH (12:13)
[2021-02-06] MEDS: ENOXAPARIN NA (PORCINE) 40 MG/0.4 ML DISP.SYRIN SQ SCH (12:14)
[2021-02-06 13:33] VITALS: BP 139/50; PULSE 70; TEMP 98.5
== END 2021-02-06 17:46 | disposition home or self-care (01) ==
LOC: JER 03:30 → JERBED 05:28 → J4S 16:50
PROVIDERS: ADMIT Internal Medicine; ATTEND Internal Medicine
PROC: 3E023GC Introduction of Other Therapeutic Substance into Muscle, Percutaneous Approach (ICD-10-PCS; principal; 2021-02-04)
DX: I11.0 Hypertensive heart disease with heart failure (principal); R20.2 Paresthesia of skin; E78.5 Hyperlipidemia, unspecified; F41.9 Anxiety disorder, unspecified; D64.9 Anemia, unspecified; R07.9 Chest pain, unspecified; E11.9 Type 2 diabetes mellitus without complications; G47.33 Obstructive sleep apnea (adult) (pediatric); M81.0 Age-related osteoporosis without current pathological fracture; R06.00 Dyspnea, unspecified; I50.30 Unspecified diastolic (congestive) heart failure; J44.1 Chronic obstructive pulmonary disease with (acute) exacerbation; Z91.041 Radiographic dye allergy status; J45.901 Unspecified asthma with (acute) exacerbation; M25.559 Pain in unspecified hip; M19.90 Unspecified osteoarthritis, unspecified site; Z91.013 Allergy to seafood; Z88.1 Allergy status to other antibiotic agents; Z87.891 Personal history of nicotine dependence; Z23 Encounter for immunization
CPT/HCPCS: 36415; 71046-TC-FY; 78452-TC; 80053; 80061; 82550; 82553; 82962; 83036; 83735; 84484; 85025; 93005; 93010; 93017; 96372; 99285-25; A9502; C9803; G0378; U0003; U0005

== ENCOUNTER 2021-11-02 12:22 | Emergency (ER) | payer OTHER ==
[2021-11-02 12:28] VITALS: TEMP 98; BMI 30.2
[2021-11-02 13:59] LABS: BASO % 0.7 % (0-2.0); EOS % 3.6 % (0-4.5); HEMATOCRIT 42.1 % (32.4-45.2); HEMOGLOBIN 13.4 GM/dL (10.7-15.3); LYMPH % 26.1 % (8-40); MCH 27.9 pg (25.7-33.7); MCHC 31.9 g/dl (32.0-36.0); MEAN CELL VOLUME 87.4 fl (80-96); MEAN PLT VOLUME 11.2 fl (7.5-11.1); MONO % 10.7 % (3.8-10.2); NEUT % 58.9 % (42.8-82.8); PLATELET COUNT 195 10^3/uL (134-434); RBC 4.82 M/mm3 (3.60-5.2); RDW 14.6 % (11.6-15.6)
[2021-11-02 14:11] LABS: CHLORIDE 106 mmol/L (98-107); SODIUM 139 mmol/L (136-145)
[2021-11-02 14:13] LABS: ALBUMIN 3.2 g/dl (3.4-5.0); BLOOD UREA NITROGEN 33.8 mg/dL (7-18); CALCIUM 9.2 mg/dL (8.5-10.1); CO2 28 mmol/L (21-32); GLUCOSE,RANDOM 93 mg/dL (74-106); MAGNESIUM 2.3 mg/dL (1.8-2.4)
[2021-11-02 14:16] LABS: CREATININE 0.8 mg/dL (0.55-1.3)
[2021-11-02 14:18] LABS: BILIRUBIN,TOTAL 0.3 mg/dL (0.2-1); TOT PROT 7.2 g/dl (6.4-8.2)
[2021-11-02 14:19] LABS: ALK PHOS 59 U/L (45-117)
[2021-11-02 14:24] LABS: ANION GAP 5 MMOL/L (8-16); SGOT/AST 86 U/L (15-37); SGPT/ALT 38 U/L (13-61)
[2021-11-02 16:11] VITALS: BP 141/63; PULSE 70
== END 2021-11-02 16:15 | disposition home or self-care (01) ==
LOC: JER 12:22
DX: R00.2 Palpitations (principal); I47.1 Supraventricular tachycardia
CPT/HCPCS: 36415; 71046-TC-FY; 80053; 83735; 84132; 84484; 85025; 93005; 93010; 99284-25

== ENCOUNTER 2022-12-03 09:00 | Emergency (ER) | payer OTHER ==
[2022-12-03 09:23] VITALS: BMI 36.3
[2022-12-03] MEDS ORDERED: ACETAMINOPHEN 1000 MG/100 ML BAG IVPB ONE (11:34)
[2022-12-03] MEDS ORDERED: METOCLOPRAMIDE HCL INJECTION 10 MG/2 ML VIAL IVPUSH ONE (11:35)
[2022-12-03] MEDS ORDERED: METOCLOPRAMIDE HCL INJECTION 10 MG/2 ML VIAL ONE (12:05)
[2022-12-03] MEDS ORDERED: ACETAMINOPHEN INJECTION 100 ML IVPB ONE (12:05)
[2022-12-03 12:37] LABS: BASO % 0.5 % (0-2.0); EOS % 0.9 % (0-4.5); HEMATOCRIT 42.4 % (32.4-45.2); HEMOGLOBIN 13.7 GM/dL (10.7-15.3); LYMPH % 21.1 % (8-40); MCHC 32.4 g/dl (32.0-36.0); MEAN CELL VOLUME 83.4 fl (80-96); MEAN PLT VOLUME 9.5 fl (7.5-11.1); MONO % 10.5 % (3.8-10.2); PLATELET COUNT 177 10^3/uL (134-434); RBC 5.08 M/mm3 (3.60-5.2); RDW 14.5 % (11.6-15.6)
[2022-12-03 12:38] LABS: EPI CELLS 32 /uL (0-25.1); HYALINE CASTS 0 /uL (0-3.1); PH,URINE 5.5 (5.0-8.0); URINE APPEARANCE CLEAR; URINE BACTERIA 489 /uL (0-1359); URINE BILIRUBIN NEGATIVE (NEGATIVE); URINE COLOR YELLOW; URINE GLUCOSE (UA) NEGATIVE (NEGATIVE); URINE KETONE NEGATIVE (NEGATIVE); URINE LEUK ESTERASE 3+ (NEGATIVE); URINE NITRITE NEGATIVE (NEGATIVE); URINE PROTEIN NEGATIVE (NEGATIVE); URINE RBC 22 /uL (0-23.9); URINE UROBILINOGEN 0.2 mg/dL (0.2-1.0); URINE WBC 356 /uL (0-25.8)
[2022-12-03 13:00] LABS: CHLORIDE 100 mmol/L (98-107); POTASSIUM 4.2 mmol/L (3.5-5.1); SODIUM 135 mmol/L (136-145)
[2022-12-03 13:02] LABS: ALBUMIN 3.6 g/dl (3.4-5.0); ANION GAP 4 MMOL/L (8-16); BLOOD UREA NITROGEN 14.7 mg/dL (7-18); CALCIUM 9.2 mg/dL (8.5-10.1); CO2 30 mmol/L (21-32)
[2022-12-03 13:03] LABS: GLUCOSE,RANDOM 108 mg/dL (74-106)
[2022-12-03 13:05] LABS: CREATININE 0.7 mg/dL (0.55-1.3); SGOT/AST 17 U/L (15-37); SGPT/ALT 24 U/L (13-61)
[2022-12-03 13:06] LABS: BILIRUBIN,TOTAL 0.4 mg/dL (0.2-1); TOT PROT 6.8 g/dl (6.4-8.2)
[2022-12-03 13:08] LABS: ALK PHOS 60 U/L (45-117)
[2022-12-03 13:12] LABS: ERYTHROCYTE SEDIMENTATION RATE 12 mm/hr (0-30)
[2022-12-03] MEDS ORDERED: SODIUM CHLORIDE 0.9% 500 ML INFUS.BAG IV ONE (13:18)
[2022-12-03] MEDS ORDERED: cefTRIAXone SODIUM 1 GM VIAL ONE (14:18)
[2022-12-03] MEDS ORDERED: CEFTRIAXONE 1,000 MG in DEXTROSE 5%-WATER - 50 ML IVPB ONE (14:24)
[2022-12-03] MEDS ORDERED: CEFTRIAXONE 1 GM/50 ML BAG ONE (14:25)
[2022-12-03 15:18] VITALS: BP 173/86; PULSE 70; RESP 16; TEMP 97.1
== END 2022-12-03 15:19 | disposition home or self-care (01) ==
LOC: JER 09:00
PROC: 3E03329 Introduction of Other Anti-infective into Peripheral Vein, Percutaneous Approach (ICD-10-PCS; principal; 2022-12-03)
PROC: 3E033NZ Introduction of Analgesics, Hypnotics, Sedatives into Peripheral Vein, Percutaneous Approach (ICD-10-PCS; 2022-12-03)
PROC: 3E033GC Introduction of Other Therapeutic Substance into Peripheral Vein, Percutaneous Approach (ICD-10-PCS; 2022-12-03)
DX: R53.1 Weakness (principal); R68.83 Chills (without fever); R11.0 Nausea; R51.9 Headache, unspecified; N39.0 Urinary tract infection, site not specified
CPT/HCPCS: 36415; 71045-TC-FY; 80053; 81003; 82962; 84484; 85025; 85651; 86140; 87086; 93005; 93010; 99285-25

== ENCOUNTER 2022-12-07 14:43 | Emergency (ER) | payer OTHER ==
[2022-12-07 15:06] VITALS: RESP 18; TEMP 98.5; BMI 30.2
[2022-12-07] MEDS ORDERED: ACETAMINOPHEN 325 MG TABLET (FP) PO ONE (16:21)
[2022-12-07] MEDS ORDERED: IBUPROFEN 600 MG TABLET (FP) PO ONE ×3 (16:21→16:33)
[2022-12-07] MEDS ORDERED: ACETAMINOPHEN 325 MG TABLET (FP) ONE ×2 (16:25→16:33)
[2022-12-07] MEDS ORDERED: ONDANSETRON 4 MG TABLET PO ONE (16:43)
[2022-12-07] MEDS ORDERED: ONDANSETRON *ODT* 4 MG TABLET ONE (16:52)
[2022-12-07 18:22] VITALS: BP 148/61; PULSE 89
== END 2022-12-07 18:21 | disposition home or self-care (01) ==
LOC: JER 14:43
DX: R51.9 Headache, unspecified (principal); R42 Dizziness and giddiness; M54.2 Cervicalgia
CPT/HCPCS: 70450-TC; 99284-25

== ENCOUNTER 2023-04-16 11:13 | Emergency (ER) | payer OTHER ==
[2023-04-16 11:23] VITALS: BP 123/87; PULSE 89; RESP 16; TEMP 98.2; BMI 41.5
[2023-04-16] MEDS ORDERED: methylPREDNISolone NA SUCC 125 MG/2 ML VIAL IVPUSH ONE (12:20)
[2023-04-16] MEDS ORDERED: MAGNESIUM SULF 50% (8.12 MEQ/2 ML-1 GM VIAL) IVPB ONE (12:21)
[2023-04-16] MEDS ORDERED: ALBUTEROL SO4 2.5/IPRATROPIUM 0.5 INH SOL 3 ML VIAL.NEB. NEB SCH (12:30)
== END 2023-04-16 13:08 | disposition left against medical advice (07) ==
LOC: JER 11:13
DX: R05.9 Cough, unspecified (principal); R06.02 Shortness of breath; R06.2 Wheezing; J45.901 Unspecified asthma with (acute) exacerbation
CPT/HCPCS: 99281-25